=== PATIENT | female | born 1960 | race Caucasian/White ===

== ENCOUNTER 2021-03-07 13:36 | Inpatient (IN) | payer MEDICARE, MEDICAID, SELFPAY ==
[2021-03-07] VITALS (14 sets, daily range): BP systolic 79–115; BP diastolic 36–96; PULSE 88–112; RESP 17–28; TEMP 36.4–36.6; O2SAT 97–100; BMI 27.3
--- NOTE | ~2021-03-07 | US_ITS ---
EXAMINATION: US renal BI EXAM DATE: 03/08/2021 11:11 INDICATION: Acute kidney injury. TECHNIQUE: Multiple grayscale and Doppler images of the kidneys were obtained (by a technologist who performed the scan) and subsequently reviewed. There is no prior study for comparison. FINDINGS: Right kidney: There is normal contour and echogenicity. It measures 10.6 x 3.6 x 5.8 centimeters. T here are no focal renal lesions identified. Minimal hydronephrosis. Left kidney: There is normal contour and echogenicity. It measures 11.0 x 6.7 x 6.3 centimeters. Th ere are no focal renal lesions identified. Mild hydronephrosis. Bladder collapsed. Some artifact from White balloon. IMPRESSION: 1. Mild left, minimal right hydronephrosis. Reviewed, dictated and finalized at location B.
--- NOTE | ~2021-03-07 | XR_ITS ---
EXAMINATION: XR chest 1V portable EXAM DATE: 03/07/2021 14:02 INDICATION: weak, abnormal labs, low blood pressure . TECHNIQUE: Portable AP frontal chest x-ray was obtained. There is no prior study for comparison. FINDINGS: The lungs are clear. There are no pleural effusions. Cardiac silhouette is prominent but magnified on this AP technique. There is no pneumothorax suspected. Dextroscoliosis. IMPRESSION: No acute cardiopulmonary findings. Reviewed, dictated and finalized at location B.
--- NOTE | ~2021-03-07 | CT_ITS ---
EXAMINATION: CT abdomen pelvis wo con EXAM DATE: 03/07/2021 15:43 INDICATION: LLQ abdominal pain. TECHNIQUE: Spiral CT of the abdomen and pelvis was performed without contrast. Axial, coronal and s agittal images of the abdomen and pelvis were reviewed. The dose-length product (DLP) for this exami nation was 540.38 mGy-cm. The exposure was tailored according to patient size (auto mA exposure cont rol), and iterative reconstruction (ASIR) was used as additional dose reduction technique. There is no prior study for comparison. FINDINGS: There is an IVC filter. Mild left adrenal hyperplasia. The liver, spleen, adrenal glands a nd pancreas are unremarkable. Gallbladder is unremarkable. No biliary obstruction. There is a cystic region in the pelvis measuring about 9 x 7 cm, appears to be most likely arising fr om right adnexal region. It appears to be simple cystic, most consistent with a benign ovarian neopla sm. Periadnexal cyst, endometrioma, ovarian malignancy are also in the differential diagnosis. Mild to moderate left-sided hydroureteronephrosis, mild right-sided hydroureteronephrosis. No obstruc ting stones identified. There is White catheter within the bladder. Diffuse bladder wall inflammation , probably acute or acute on chronic cystitis. Cause of the hydronephrosis and clear but possibly inf lammation of the bladder wall, ureterovesicular junctions could be causing some low-grade impairment of flow. There is no retroperitoneal or pelvic lymphadenopathy. There is midline abdominal wall dehiscence with superimposed additional small supraumbilical hernia c ontaining nonobstructed bowel wall, and an infraumbilical moderate-sized hernia containing nonobstruc salma small bowel. The appendix is normal. The stomach and small bowel are unremarkable. There is moderate amount of c olonic stool. No free intraperitoneal gas. The heart is normal in size. There are no pericardial or pleural effusions. The lung bases are unremarkable. There are no osteoblastic or osteolytic les ions identified. IMPRESSION: 1. Pelvic cystic mass most likely right ovarian origin. 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 Cystadenocarcinoma, endometrioma also possible. 2. Diffuse bladder wall inflammation consistent with chronic or acute on chronic cystitis. Correlate with urinalysis. 3. Mild to moderate left, mild right hydroureteronephrosis. 4. Abdominal wall dehiscence, couple of small superimposed hernias containing nonobstructed bowel. Reviewed, dictated and finalized at location B. IMPRESSION: 1. Pelvic cystic mass most likely right ovarian origin. Appearance most consis tent with ovarian cystadenoma. Cystadenocarcinoma, endometrioma also possible. 2. Diffuse bladder wall inflammation consistent with chronic or acute on chron ic cystitis. Correlate with urinalysis. 3. Mild to moderate left, mild right hydroureteronephrosis. 4. Abdominal wall dehiscence, couple of small superimposed hernias containing nonobstructed bowel.
--- NOTE | ~2021-03-07 | US_ITS ---
EXAMINATION: US venous doppler [facility] DATE: 03/08/2021 11:12 INDICATION: Right lower limb pain. TECHNIQUE: Grayscale ultrasound images without and with compression and Doppler ultrasound images of the bilateral lower extremity veins were obtained. COMPARISON: None. FINDINGS: The visualized portions of right common femoral vein, profunda (deep) femoral vein, femoral vein, per payne veins, posterior tibial veins, and greater saphenous vein outflow are patent. The right poplite al vein was not evaluated due to persistent flexion of the knee. The visualized portions of left common femoral vein, profunda femoral vein, femoral vein, popliteal v ein, peroneal veins, posterior tibial veins, and greater saphenous vein outflow are patent. IMPRESSION: 1. No deep venous thrombosis. Reviewed, dictated and finalized at location A.
--- NOTE | 2021-03-07 13:43 | ECG_ITS ---
Measurements Intervals [place] Rate: 110 P: 66 [place]: 143 QRS: 31 QRSD: 100 T: 70 QT: 332 QTc: 451 Interpretive Statements SINUS TACHYCARDIA ATRIAL COUPLET EARLY PRECORDIAL R/S TRANSITION BORDERLINE ST-T WAVE ABNORMALITY- DIFFUSE LEADS BASELINE ARTIFACT- I, II, AVR, AVL ABNORMAL ECG Electronically Signed On 03-07-2021 14:56:26 CDT by Loki Chacon D.O.
[2021-03-07 14:01] LABS: Basophils Absolute Auto 0.1 K/mm3 (0.0-0.1); Basophils Percent Auto 1.1 % (0.2-1.2); Eosinophils Absolute Auto 0.1 K/mm3 (0-0.3); Eosinophils Percent Auto 1.6 % (0-4.4); Hematocrit 26.6 % (37.0-47.0); Hemoglobin 8.7 g/dL (12.0-15.0); Immature Granulocyte Absolute 0.48 K/mm3 (0.00-0.031); Lymphocytes Absolute Auto 0.92 K/mm3 (0.9-3.2); Lymphocytes Percent Auto 11.5 % (18.3-44.2); Mean Corpuscular HGB Conc 32.7 g/dl (32-36); Mean Corpuscular Hemoglobin 29.3 pg (26-34); Mean Corpuscular Volume 89.6 fl (80-100); Mean Platelet Volume 9.3 fl (7.4-10.4); Monocytes Absolute Auto 0.7 K/mm3 (0.1-0.6); Monocytes Percent Auto 8.2 % (2.6-8.5); Neutrophils Absolute Auto 5.7 K/mm3 (1.3-6.7); Neutrophils Percent Auto 71.6 % (45.5-73.1); Platelet Count Result 510 k/mm3 (150-375); Red Blood Count 2.97 M/mm3 (4.2-5.4); Red Cell Distribution Width 17.5 % (11.5-14.5)
[2021-03-07 14:14] LABS: Add Urine Microscopic? YES; Appearance Urine Turbid (Clear); Bacteria Urine 2+ /hpf; Bilirubin Urine Negative (Negative); Blood Urine 2+ (Negative); Budding Yeast Urine Present /hpf; Color Urine Yellow (Yellow); Glucose Urine UA Negative (Negative); Ketones Urine Negative (Negative); Leukocyte Esterase Ur 3+ LEU/UL (Negative); Mucus Urine Rare /lpf; Nitrate Urine Negative (Negative); Protein Urine 2+ mg/dL (Negative); RBC Urine 21-50 /hpf (0-2); Specific Grav Ur 1.013 (1.001-1.035); Urobilinogen Urine Negative mg/dL (<2.0); WBC Clumps Urine Present /HPF; WBC Urine >75 /hpf
[2021-03-07 14:21] LABS: Alanine Aminotransferase 20 U/L (4-35); Albumin Level 3.7 g/dL (3.5-5.1); Alkaline Phosphatase 122 U/L (38-126); Anion Gap 14 mmol/L (8-16); Aspartate Amino Transferase 23 U/L (14-36); Bilirubin,Total 0.4 mg/dL (0.2-1.3); Blood Urea Nitrogen 72 mg/dL (7-17); Calcium 9.5 mg/dL (8.4-10.2); Carbon Dioxide 13 mmol/L (22-30); Chloride 107 mmol/L (98-107); Estimated Glomerular Filt Rate 21; Glucose 109 mg/dL (65-110); Potassium 3.7 mmol/L (3.4-5.0); Sodium 134 mmol/L (137-145)
--- NOTE | 2021-03-07 15:00 | PM.IMHP ---
H&P: HPI History of Present Illness Date/Time: 03/07/21 15:00 Chief Complaint: Abnormal labs. Narrative: This is a pleasant 60-year-old female with history of dementia, hypertension, hyperlipidemia, coronary artery disease, ulcerative colitis, neurogenic bladder with indwelling White catheter, and several other comorbidities who presented to the emergency department earlier today via EMS from [facility] for evaluation of abnormal labs. The patient is a fair historian though some of the following is supplemented via a review of her electronic medical records as well as review of paperwork that accompanied her today. She has not been seen at this facility for many years and it sounds like she typically gets her care at [facility]. She had labs drawn yesterday though I am not sure in what setting, and she was found to have an elevated BUN and creatinine of 91 and 3.4 respectively there is also paperwork showing that she had normal BUN and creatinine on 02/01/2021. In any regard, the patient did not really know why she was sent here today and review of systems was really unrevealing aside from mild weakness and lower abdominal discomfort. Her blood pressure was as low as 79/63 in the emergency department but has improved with IV fluid rehydration. Labs do correlate with acute kidney injury. She was also noted to have pus in her White catheter which appeared to be draining. At the time my evaluation she has no specific complaints and she denies fever, chills, sweats, nausea, vomiting, and diarrhea. She is not currently having any abdominal discomfort or back pain. She does not believe she has been started on any recent medications. Review of Systems Review of Systems: Complete review of systems was conducted and is negative except for what is documented in the HPI. [facility] Past Medical History Medical History (Updated 03/07/21 @ 23:14 by Sindy Soliman PA-C) Anxiety Arthritis Chronic anemia Chronic indwelling White catheter Coronary artery disease Poorly documented and patient denies. Deep venous thrombosis Dementia Gastroesophageal reflux disease Hyperlipidemia Hypertension Neurogenic bladder Ulcerative colitis Surgical History Surgical History History of colon resection Family History Family History (Updated 03/07/21 @ 23:05 by Sindy Soliman PA-C) Other Family history unknown Social History Social History (Updated 03/07/21 @ 23:05 by Sindy Soliman PA-C) Social History: Surrogate decision maker: Amanda Parker, sibling. Code status: Full code. Smoking status: Never smoker Alcohol intake: never Substance use: never Additional living arrangements comments: The patient is a resident at [facility]. Additional occupation/education comments: Disabled. Meds Home Medications and Allergies Home Medications Medication Instructions Recorded Confirmed Type azithromycin 03/07/21 03/07/21 History hydroxyzine pamoate 03/07/21 History lactulose 03/07/21 History losartan 03/07/21 History mirtazapine mg 03/07/21 History montelukast mg 03/07/21 History pantoprazole PO 03/07/21 History potassium chloride meq PO 03/07/21 History sertraline mg 03/07/21 History simvastatin mg 03/07/21 History sucralfate 03/07/21 History Allergies Allergy/AdvReac Type Severity Reaction Status Date / Time lorazepam Allergy Unknown Verified 03/07/21 14:22 Vital Signs Vital Signs - 24 hr 03/07/21 13:32 03/07/21 14:01 03/07/21 14:31 Temperature 97.5 F L Pulse Rate 105 H 108 H 110 H Respiratory Rate 18 24 H 21 H Blood Pressure 88/54 L 101/59 L 100/57 L Pulse Oximetry 100 03/07/21 15:54 03/07/21 16:31 03/07/21 16:33 Temperature Pulse Rate 101 H Respiratory Rate 28 H Blood Pressure 97/74 L 79/63 L 94/60 L Pulse Oximetry 100 100 03/07/21 17:02 03/07/21 19:19 03/07/21 20:07 Temperature
--- NOTE | 2021-03-07 15:19 | ED.RECABL ---
HPI - Recheck/Abnormal Lab/Rx General Chief Complaint: Recheck/Abnormal Lab/Rx Stated Complaint: ABNORMAL LABS Time Seen by Provider: 03/07/21 14:39 Source: patient and EMS Mode of arrival: EMS Limitations: dementia History of Present Illness HPI narrative: This is a 60 year old female with history of Dementia, chronic indwelling kemp catheter, hypertension who presents from [facility] for evaluation elevated BUN/Creatinine. PAtient is oriented to person, age and place. She does not know why she was sent to ER. She reports mild intermittent abdominal pain and weakness. She denies nausea, vomiting. She reports she is eating and drinking. She states her kemp catheter was changed last night and she has not been on antibiotics recently. PAtient had normal Cr 1 month ago and her outpatient labs show Cr 3.4 with BUN 91. Related Data Home Medications Medication Instructions Recorded Confirmed azithromycin 03/07/21 03/07/21 hydroxyzine pamoate 03/07/21 lactulose 03/07/21 losartan 03/07/21 mirtazapine mg 03/07/21 montelukast mg 03/07/21 pantoprazole PO 03/07/21 potassium chloride meq PO 03/07/21 sertraline mg 03/07/21 simvastatin mg 03/07/21 sucralfate 03/07/21 Allergies Allergy/AdvReac Type Severity Reaction Status Date / Time lorazepam Allergy Unknown Verified 03/07/21 14:22 Review of Systems Review of Systems: All systems reviewed & are unremarkable except as noted in HPI and below PMFSH Past Medical History Medical History (Updated 03/07/21 @ 17:09 by Serena Lang MD) Anemia Chronic indwelling Kemp catheter Dementia Hyperlipidemia Surgical History Surgical History (Updated 03/07/21 @ 17:09 by Serena Lang MD) History of colon resection Social History Social History (Updated 03/07/21 @ 17:09 by Serena Lang MD) Smoking status: Never smoker Exam Const: General: no acute distress and alert Orientation/consciousness: patient oriented x3 Eyes: EOM: EOMs intact bilaterally Resp: Effort & Inspection: normal respiratory effort and no retractions Auscultation: clear to auscultation bilaterally Cardio: Rate: regular rate Rhythm: regular rhythm Heart sounds: no murmurs GI: GI Palp: Yes Soft to palpation, Yes Tenderness to palpation present (GI) (LLQ) and No Guarding due to palpation present (GI) Auscultation: normal bowel sounds Urinary Catheter: Urinary Catheter: patent and draining and urine cloudy Back/Spine/Pelvis: Back: no CVA tenderness Skin: General skin exam: normal color Rashes: no rashes Neuro: General: patient oriented x3 and CN's II-XI intact bilaterally Other: lower extremity contractures Psych: Mental Status: mental status grossly normal Affect: normal affect Course Reevaluation(s) Reevaluation #1: Patient will be admitted for IV antibiotics and UTI with acute renal failure. BP is responding to IVF. Date: 03/07/21 Time: 17:05 Consultations Consultation #1: I Discussed case with Sindy murray who accepts patient to service. Date: 03/07/21 Time: 16:30 Vital Signs Vital signs: Vital Signs Temperature 97.5 F L 03/07/21 13:32 Pulse Rate 105 H 03/07/21 13:32 Respiratory Rate 18 03/07/21 13:32 Blood Pressure 88/54 L 03/07/21 13:32 Pulse Oximetry 100 03/07/21 13:32 Temperature 97.5 F L 03/07/21 13:32 Pulse Rate 101 H 03/07/21 15:54 Respiratory Rate 28 H 03/07/21 15:54 Blood Pressure 97/74 L 03/07/21 15:54 Pulse Oximetry 100 03/07/21 15:54 MDM - Recheck/Abnormal Lab/Rx Lab Data Attestation: I reviewed the patient's lab results. Result diagrams: 03/07/21 13:47 03/07/21 13:47 Labs: Lab Results 03/07/21 03/07/21 03/07/21 Range/Units 13:47 13:47 13:47 WBC 8.0 (4.5-10.0) K/mm3 RBC 2.97 L (4.2-5.4) M/mm3 Hgb 8.7 L (12.0-15.0) g/dL Hct 26.6 L (37.0-47.0) % MCV 89.6 (80-100) fl MCH 29.3 (26-34) pg MCHC 32.7 (32-36) g/dl R
[2021-03-07 15:36] LABS: Alveolar/Arterial O2 Gradient 24.3 mmHg; Base Excess ABG -9.5 mEq/l (+/-2.0); Carboxyhemoglobin 0.2 % THb (0-2.0); Fractional Inspired Oxygen 21 %; HCO3 ABG 13.9 mEq/l (22.0-26.0); Methemoglobin ABG 0.3 %THb (0-1.5); Oxygen Content ABG 13.3 %vol (16.0-22.0); Oxygen Saturation ABG 97.6 % (95.0-100.0); Oxyhemoglobin 96.6 % THb (90.0-100.0); PO2 ABG 97.8 mmHg (80.0-100.0); PO2 FiO2 Ratio Arterial Blood 4.66 %; Reduced Hemoglobin 2.9 %THb (0-5.0); Total Hemoglobin 9.7 g/dL (12.0-18.0); pH ABG 7.396 (7.350-7.450)
[2021-03-07 15:39] LABS: PCO2 ABG 23.1 mmHg (35.0-45.0); Site Drawn LEFT BRACHIAL
[2021-03-07 15:40] LABS: Device ROOM AIR
[2021-03-07 16:06] LABS: Lactic Acid Reflex 0.8 mmol/L (0.7-2.1)
[2021-03-07] MEDS: SODIUM CHLORIDE 0.9% IV 1,000 ML 999 ML IV CONT ×2 (16:32→16:33)
[2021-03-07 21:09] LABS: Glucose Point of Care 99 mg/dl (65-105)
--- NOTE | 2021-03-07 23:23 | ADMGEN ---
This patient, Patsy Hugo, was admitted to IMU Room 203-01. Patient/family oriented to hospital policies and general routines including ID bracelet, bed and alarms, visiting hours, pain management, procedures, bathroom and other care routines, personal items, smoking policy, room service/diet, and visiting hours. Information on how to activate the Rapid Response Team has been discussed. Patient/Family are encouraged to report perceived risks to care and to ask questions if they do not understand what they are told or what they should do.
[2021-03-07] MEDS: SODIUM CHLORIDE 0.9% IV 1,000 ML 100 ML IV CONT (23:28)
[2021-03-08] VITALS (19 sets, daily range): BP systolic 103–125; BP diastolic 44–70; PULSE 82–114; RESP 14–20; TEMP 36.3–36.9; O2SAT 100; BMI 27.3
[2021-03-08 05:33] LABS: Basophils Absolute Auto 0.1 K/mm3 (0.0-0.1); Basophils Percent Auto 1.4 % (0.2-1.2); Eosinophils Absolute Auto 0.2 K/mm3 (0-0.3); Eosinophils Percent Auto 2.4 % (0-4.4); Hematocrit 24.1 % (37.0-47.0); Hemoglobin 7.5 g/dL (12.0-15.0); Immature Granulocyte Absolute 0.42 K/mm3 (0.00-0.031); Immature Granulocyte Percent A 6.4 % (0-0.5); Lymphocytes Absolute Auto 0.75 K/mm3 (0.9-3.2); Lymphocytes Percent Auto 11.4 % (18.3-44.2); Mean Corpuscular HGB Conc 31.1 g/dl (32-36); Mean Corpuscular Hemoglobin 29.2 pg (26-34); Mean Corpuscular Volume 93.8 fl (80-100); Mean Platelet Volume 9.1 fl (7.4-10.4); Monocytes Absolute Auto 0.7 K/mm3 (0.1-0.6); Monocytes Percent Auto 9.9 % (2.6-8.5); Neutrophils Absolute Auto 4.5 K/mm3 (1.3-6.7); Neutrophils Percent Auto 68.5 % (45.5-73.1); Platelet Count Result 438 k/mm3 (150-375); Red Blood Count 2.57 M/mm3 (4.2-5.4); Red Cell Distribution Width 17.9 % (11.5-14.5); White Blood Count 6.6 K/mm3 (4.5-10.0)
[2021-03-08 05:44] LABS: Creatine Kinase 45 U/L (30-135); Magnesium 1.8 mg/dL (1.6-2.3)
[2021-03-08 05:51] LABS: Alanine Aminotransferase 15 U/L (4-35); Albumin Level 3.2 g/dL (3.5-5.1); Alkaline Phosphatase 101 U/L (38-126); Anion Gap 13 mmol/L (8-16); Aspartate Amino Transferase 20 U/L (14-36); Bilirubin,Total 0.1 mg/dL (0.2-1.3); Blood Urea Nitrogen 53 mg/dL (7-17); Calcium 8.8 mg/dL (8.4-10.2); Carbon Dioxide 13 mmol/L (22-30); Chloride 114 mmol/L (98-107); Estimated CRCL calculation 27 ml/min; Estimated Glomerular Filt Rate 30; Glucose 103 mg/dL (65-110); Potassium 3.1 mmol/L (3.4-5.0); Sodium 140 mmol/L (137-145)
[2021-03-08 07:11] LABS: Free T4 Free Thyroxine Reflex 0.86 ng/dL (0.78-2.19)
[2021-03-08] MEDS: ENOXAPARIN 40 MG/0.4 ML SYRINGE SUB-Q (08:39)
[2021-03-08] MEDS: PANTOPRAZOLE 40 MG TABLET PO (08:39)
[2021-03-08] MEDS: MONTELUKAST SODIUM 10 MG TABLET PO (08:39)
[2021-03-08 09:01] LABS: Total Triiodothyronine (T3) 0.67 NG/ML (0.97-1.69)
[2021-03-08] MEDS: SODIUM BICARBONATE TAB 650 MG TABLET 1300 MG PO ×2 (09:53→16:53)
[2021-03-08] MEDS: POTASSIUM CHLORIDE 20 MEQ TABLET 40 MEQ PO (09:54)
[2021-03-08] MEDS: SODIUM CHLORIDE 0.9% IV 1,000 ML 100 ML IV CONT ×3 (10:02→20:33)
--- NOTE | 2021-03-08 15:26 | PC.NURSE ---
On 03/08/21, the student, [Esme Olivera ], provided care and completed [employer] documentation on this patient. I have reviewed the student's documentation and agree with the findings.
--- NOTE | 2021-03-08 15:54 | WPDURCON ---
Assessment and Plan Assessment and plan (1) Sepsis: Code(s): A41.9 - Sepsis, unspecified organism Status: Acute Assessment and Plan: Continue IV antibiotics, tailor to culture results. No further evaluation needed. Ok to discharge to [facility] when stable. (2) Chronic indwelling Kemp catheter: Code(s): Z97.8 - Presence of other specified devices Status: Acute Assessment and Plan: Continue monthly changes. I would recommend she see us in the office for a urodynamic study to further evaluate her retention, if she has a confirmed neurogenic bladder at that point, we would recommend a suprapubic catheter custodial rather than a urethral catheter. Urology Consult Note HPI Date Seen: 03/08/21 Requesting Physician: Stella Astudillo PA-C Primary Care Provider: PHYSICIAN NOT ON STAFF Consult Narrative Narrative: Patsy Hugo is a 60 year old female who presented to the ER yesterday with abdominal pain and weakness. She resides in a halfway and has a chronic indwelling kemp catheter. She was found to have a WBC of 6.6 today, creatinine of 1.20, UA suggests a UTI, but urine culture and blood cultures are pending at this time. She is afebrile and sitting up in bed eating. She had a BLANCA done today that shows mild bilateral hydro, although her kemp is draining to gravity without problem. She had a CT yesterday that showed cystitis and mild bilateral hydro. Her kemp was replaced two days ago at the [facility]. She saw Dr. Robins on 07/20/2020 for a voiding trial and he gave orders for the [facility] to do it and call with an update, but there has been no f/u since. She remains on Ceftriaxone. Review of Systems Respiratory: Respiratory: Reports no additional respiratory complaints Gastrointestinal: Gastrointestinal: Reports abdominal pain, Denies nausea and Denies vomiting Genitourinary: Genitourinary: Reports other (chronic kemp) [facility] Past Medical History Medical History Anxiety Arthritis Chronic anemia Chronic indwelling Kemp catheter Coronary artery disease Poorly documented and patient denies. Deep venous thrombosis Dementia Gastroesophageal reflux disease Hyperlipidemia Hypertension Neurogenic bladder Ulcerative colitis Surgical History Surgical History History of colon resection Family History Family History Other Family history unknown Social History Social History Social History: Surrogate decision maker: Amanda Parker, sibling. Code status: Full code. Smoking status: Never smoker Alcohol intake: never Substance use: never Additional living arrangements comments: The patient is a resident at [facility]. Additional occupation/education comments: Disabled. Spiritual care concerns: No Meds Home Medications and Allergies Home Medications Medication Instructions Recorded Confirmed Type hydroxyzine pamoate 25 mg PO BID 03/07/21 03/08/21 History lactulose 10 g PO TID PRN 03/07/21 03/08/21 History losartan 25 mg PO DAILY 03/07/21 03/08/21 History mirtazapine 15 mg PO HS 03/07/21 03/08/21 History montelukast 10 mg PO DAILY 03/07/21 03/08/21 History pantoprazole 40 mg PO DAILY 03/07/21 03/08/21 History sertraline 50 mg PO DAILY 03/07/21 03/08/21 History simvastatin 20 mg PO HS 03/07/21 03/08/21 History sucralfate 1 g PO BID 03/07/21 03/08/21 History Lactobacillus acidophilus 1 cap PO DAILY 03/08/21 03/08/21 History [Acidophilus] acetaminophen [Tylenol Extra 1,000 mg PO Q6H PRN 03/08/21 03/08/21 History Strength] ascorbate calcium (vitamin C) 500 mg PO BID 03/08/21 03/08/21 History cholecalciferol (vitamin D3) 4,000 unit PO DAILY 03/08/21 03/08/21 History docusate sodium 100 mg PO BID 03/08/21 03/08/21 History ergoc
--- NOTE | 2021-03-08 16:57 | PM.IMPN ---
Progress Note: A&P Assessment and Plan (1) Sepsis: Code(s): A41.9 - Sepsis, unspecified organism Status: Acute Assessment and Plan: Patient met sepsis criteria on admission with tachycardia and hypotension in the setting of urinary tract infection. Lactic acid levels within normal limits. Blood pressures improved with IV fluids. Continue with IV antibiotics. Urine and blood cultures pending. Continue IV fluid hydration. Monitor intake and output, vital signs (2) Catheter-associated urinary tract infection: Code(s): T83.511A - Infection and inflammatory reaction due to indwelling urethral catheter, initial encounter; N39.0 - Urinary tract infection, site not specified Status: Acute Assessment and Plan: Noted to have pus in White catheter and urinalysis grossly abnormal. Afebrile, no leukocytosis. Appreciate urology consultation Continue empiric Rocephin Urine and blood cultures pending await results and tailor accordingly Chronic White secondary to neurogenic bladder. She will need outpatient urology follow-up. (3) Acute renal failure: Code(s): N17.9 - Acute kidney failure, unspecified Status: Acute Assessment and Plan: Jam pus noted in the White catheter and with [id number] left and mild right hydroureteronephrosis noted on CT, some of this may be obstructive. Also likely prerenal component secondary to dehydration. ATN from sepsis also considered. Creatinine 2.3 on presentation. Improved to 1.7 with IV fluids Renal ultrasound performed today showed mild left and minimal right hydronephrosis Continue fluids Monitor BMP closely. Avoid nephrotoxic agents (4) Dehydration: Code(s): E86.0 - Dehydration Status: Acute Assessment and Plan: Continue IV fluid rehydration as above. (5) Hypertension: Code(s): I10 - Essential (primary) hypertension Status: Acute Assessment and Plan: History of hypertension, though she had been hypotensive on presentation down to 79/63. BP improving today with fluids. Last BP 114/70 Continue to hold antihypertensives. Resume when clinically appropriate (6) Pelvic mass: Code(s): R19.00 - Intra-abdominal and pelvic swelling, mass and lump, unspecified site Status: Acute Assessment and Plan: Pelvic cystic mass most likely of right ovarian origin noted on CT a/p. Denies pelvic pain. There is no mention on CT reading that this may be causing hydroureteronephrosis thus may be followed as an outpatient. (7) Metabolic acidosis: Code(s): E87.2 - Acidosis Status: Acute Assessment and Plan: Normal anion gap. Bicarb 13 Begin p.o. sodium bicarbonate 1300 mg b.i.d. Monitor BMP (8) Hypokalemia: Code(s): E87.6 - Hypokalemia Status: Acute Assessment and Plan: Potassium 3.1 today Administer 40 mEq p.o. KCl Repeat potassium levels tomorrow AM. Supplement as needed Additional Plan Patient is hemodynamically stable and can be downgraded to medical/surgical floor Subjective Date/time seen: 03/08/21 16:57 Interval history: Date of service: 03/08/2021 Patsy james is a 60-year-old female with a history of neurogenic bladder with chronic indwelling White catheter, hypertension, CAD, ulcerative colitis s/p resection, and chronic anemia who is seen in follow-up for urinary tract infection. She is feeling better today. She denies any pain and does not feel ill. She has no issues with her White catheter. Denies suprapubic pain, flank pain, or back pain. No abdominal pain, nausea, vomiting, fever, or chills. Tolerating her diet. No shortness breath, cough, chest pain, dizziness, or lightheadedness. She has no additional concerns. Review of Systems Review of Systems: All systems reviewed & are unremarkable except as noted in HPI and below Exam Narrative: The patient is a thin, chronicall
[2021-03-08 17:03] LABS: Glucose Point of Care 117 mg/dl (65-105)
[2021-03-08] MEDS: SUCRALFATE 1 GM TABLET PO (18:30)
[2021-03-08 20:12] LABS: Hematocrit 22.9 % (37.0-47.0); Hemoglobin 7.5 g/dL (12.0-15.0)
[2021-03-08 20:15] LABS: Glucose Point of Care 120 mg/dl (65-105)
[2021-03-08] MEDS: MIRTAZAPINE 15 MG TABLET PO (20:33)
[2021-03-08] MEDS: SIMVASTATIN 20 MG TABLET PO (20:33)
[2021-03-09] VITALS (10 sets, daily range): BP systolic 106–121; BP diastolic 45–70; PULSE 70–107; RESP 18–20; TEMP 36.2–37.2; O2SAT 98–100
[2021-03-09 05:04] LABS: Hematocrit 24.1 % (37.0-47.0); Hemoglobin 7.7 g/dL (12.0-15.0); Mean Corpuscular Hemoglobin 29.2 pg (26-34); Mean Corpuscular Volume 91.3 fl (80-100); Mean Platelet Volume 8.8 fl (7.4-10.4); Platelet Count Result 399 k/mm3 (150-375); Red Blood Count 2.64 M/mm3 (4.2-5.4); Red Cell Distribution Width 17.9 % (11.5-14.5); White Blood Count 7.4 K/mm3 (4.5-10.0)
[2021-03-09 05:32] LABS: Anion Gap 10 mmol/L (8-16); Blood Urea Nitrogen 28 mg/dL (7-17); Calcium 8.4 mg/dL (8.4-10.2); Carbon Dioxide 17 mmol/L (22-30); Chloride 111 mmol/L (98-107); Estimated CRCL calculation 41 ml/min; Estimated Glomerular Filt Rate 50; Glucose 100 mg/dL (65-110); Potassium 3.2 mmol/L (3.4-5.0); Sodium 138 mmol/L (137-145)
[2021-03-09] MEDS: SUCRALFATE 1 GM TABLET PO ×2 (05:36→16:30)
[2021-03-09 06:21] LABS: Folic Acid 4.7 ng/mL (2.76->20)
[2021-03-09 07:16] LABS: Iron 22 ug/dL (37-170)
[2021-03-09 07:29] LABS: Percent Iron Saturation 12 % (20-50)
[2021-03-09] MEDS: SODIUM BICARBONATE TAB 650 MG TABLET 1300 MG PO ×2 (08:42→16:30)
[2021-03-09] MEDS: ENOXAPARIN 40 MG/0.4 ML SYRINGE SUB-Q (08:42)
[2021-03-09] MEDS: PANTOPRAZOLE 40 MG TABLET PO (08:42)
[2021-03-09] MEDS: POTASSIUM CHLORIDE 20 MEQ TABLET 40 MEQ PO (08:42)
[2021-03-09] MEDS: MONTELUKAST SODIUM 10 MG TABLET PO (08:42)
[2021-03-09] MEDS: SERTRALINE HCL 50 MG TABLET PO (08:42)
[2021-03-09] MEDS: SODIUM CHLORIDE 0.9% IV 1,000 ML 100 ML IV CONT (08:43)
[2021-03-09 09:06] LABS: Glucose Point of Care 87 mg/dl (65-105)
--- NOTE | 2021-03-09 11:40 | PM.IMPN ---
Progress Note: A&P Assessment and Plan (1) Sepsis: Code(s): A41.9 - Sepsis, unspecified organism Status: Acute Assessment and Plan: Tachycardia and hypotension in the setting of urinary tract infection POA Lactic acid levels within normal limits Blood pressures improved with IVF Continue with IV antibiotics UC probable contamination BC NGTD s/P IVF (2) Catheter-associated urinary tract infection: Code(s): T83.511A - Infection and inflammatory reaction due to indwelling urethral catheter, initial encounter; N39.0 - Urinary tract infection, site not specified Status: Acute Assessment and Plan: Noted to have pus in White catheter and urinalysis grossly abnormal Afebrile, no leukocytosis Urology consulted, recommendations appreciated Continue empiric Rocephin UC and BC noted above Chronic White secondary to neurogenic bladder, continue monthly changes She will need outpatient urology follow-up, 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 1.7-->1.10 todya S/p IVF Renal ultrasound showed mild left and minimal right hydronephrosis S/p IVF Avoid nephrotoxins Renally dose all meds Monitor BMP closely (4) Dehydration: Code(s): E86.0 - Dehydration Status: Acute Assessment and Plan: Improving s/p IVF (5) Hypertension: Code(s): I10 - Essential (primary) hypertension Status: Acute Assessment and Plan: Hypotensive on admission (79/63) BP improved with fluids Continue to hold antihypertensives, resume when clinically appropriate (6) Pelvic mass: Code(s): R19.00 - Intra-abdominal and pelvic swelling, mass and lump, unspecified site Status: Acute Assessment and Plan: Pelvic cystic mass most likely of right ovarian origin noted on CT a/p. No mention on CT reading that this may be causing hydroureteronephrosis, follow up outpatient (7) Metabolic acidosis: Code(s): E87.2 - Acidosis Status: Acute Assessment and Plan: Normal anion gap. Bicarb 13 Begin p.o. sodium bicarbonate 1300 mg b.i.d. Monitor BMP (8) Hypokalemia: Code(s): E87.6 - Hypokalemia Status: Acute Assessment and Plan: Potassium 3.1-->3.2 today Will give 40 mEq p.o. KCl Monitor Supplement as needed Additional Plan Patient is hemodynamically stable and can be downgraded to medical/surgical floor Subjective Date/time seen: 03/09/21 11:40 Interval history: pt seen and evaluated; overall pt is improving; no acute events overnight; no new complaints Exam Const: General: no acute distress, alert and awake HENMT: Head: normocephalic and atraumatic Ears: hearing grossly normal bilaterally and external ears normal Face and sinus: face symmetric Mouth: Yes Normal oral and palatal mucosa present Eyes: EOM: EOMs intact bilaterally Neck: Neck: full ROM, trachea midline and no JVD Resp: Effort & Inspection: normal respiratory effort Auscultation: clear to auscultation bilaterally Cardio: Jugular venous distension: no JVD Rate: regular rate Rhythm: regular rhythm Heart sounds: S1 normal heart sound present and S2 normal heart sound present GI: Inspection: normal to inspection GI Palp: Yes Soft to palpation Auscultation: normal bowel sounds : General: Yes no CVA tenderness Skin: General skin exam: normal color Rashes: no rashes Neuro: General: patient oriented x3 Cranial nerves: Yes Bilaterally intact EOM present Speech: normal speech Extrem: General: other (right sided paralysis; RLE contracted) Psych: Insight: Fair insight present (Psych)
[2021-03-09] MEDS: ACETAMINOPHEN 325 MG TABLET 650 MG PO (14:51)
--- NOTE | 2021-03-09 15:10 | PC.NURSE ---
Pt received from IMU room 203. Patient oriented to the room.
[2021-03-09] MEDS: HYDROcodone/acetaminophen (*CRX) 5-325 MG TABLET 1 TAB PO (17:16)
[2021-03-09] MEDS: MIRTAZAPINE 15 MG TABLET PO (20:53)
[2021-03-09] MEDS: SIMVASTATIN 20 MG TABLET PO (20:53)
[2021-03-10] VITALS: BP 102/46; PULSE 107; PULSE 86; RESP 20; TEMP 36.1; O2SAT 99
[2021-03-10] MEDS: ACETAMINOPHEN 500 MG TABLET 1000 MG PO ×2 (00:42→21:05)
[2021-03-10 04:00] VITALS: BP 100/42; PULSE 87; PULSE 91; RESP 20; TEMP 36.2; O2SAT 99
[2021-03-10] MEDS: SUCRALFATE 1 GM TABLET PO ×2 (05:42→16:32)
[2021-03-10 05:48] LABS: Hematocrit 24.6 % (37.0-47.0); Hemoglobin 7.9 g/dL (12.0-15.0); Mean Corpuscular HGB Conc 32.1 g/dl (32-36); Mean Corpuscular Hemoglobin 28.6 pg (26-34); Mean Corpuscular Volume 89.1 fl (80-100); Mean Platelet Volume 8.8 fl (7.4-10.4); Platelet Count Result 403 k/mm3 (150-375); Red Blood Count 2.76 M/mm3 (4.2-5.4); Red Cell Distribution Width 17.7 % (11.5-14.5); White Blood Count 5.6 K/mm3 (4.5-10.0)
[2021-03-10 06:25] LABS: Anion Gap 11 mmol/L (8-16); Blood Urea Nitrogen 18 mg/dL (7-17); Calcium 8.5 mg/dL (8.4-10.2); Carbon Dioxide 18 mmol/L (22-30); Chloride 111 mmol/L (98-107); Estimated CRCL calculation 45 ml/min; Estimated Glomerular Filt Rate 56; Glucose 100 mg/dL (65-110); Potassium 3.3 mmol/L (3.4-5.0); Sodium 140 mmol/L (137-145)
[2021-03-10 08:00] VITALS: BP 131/65; PULSE 96; PULSE 99; RESP 18; TEMP 36.3; O2SAT 100
[2021-03-10] MEDS: MONTELUKAST SODIUM 10 MG TABLET PO (08:24)
[2021-03-10] MEDS: PANTOPRAZOLE 40 MG TABLET PO (08:24)
[2021-03-10] MEDS: SODIUM BICARBONATE TAB 650 MG TABLET 1300 MG PO ×2 (08:24→16:31)
[2021-03-10] MEDS: SERTRALINE HCL 50 MG TABLET PO (08:24)
[2021-03-10] MEDS: ENOXAPARIN 40 MG/0.4 ML SYRINGE SUB-Q (08:25)
[2021-03-10] MEDS: IRON SUCROSE COMPLEX 100 MG in SODIUM CHLORIDE 0.9% IV 50 ML 220 MG IVPB (10:14)
[2021-03-10 12:00] VITALS: BP 127/62; PULSE 107; PULSE 95; RESP 16; TEMP 36.6; O2SAT 99
--- NOTE | 2021-03-10 15:22 | PM.IMPN ---
Progress Note: A&P Assessment and Plan (1) Sepsis: Code(s): A41.9 - Sepsis, unspecified organism Status: Acute Assessment and Plan: Tachycardia and hypotension in the setting of urinary tract infection POA Lactic acid levels within normal limits Blood pressures improved with IVF Continue with IV antibiotics UC probable contamination BC NGTD s/P IVF (2) Catheter-associated urinary tract infection: Code(s): T83.511A - Infection and inflammatory reaction due to indwelling urethral catheter, initial encounter; N39.0 - Urinary tract infection, site not specified Status: Acute Assessment and Plan: Noted to have pus in White catheter and urinalysis grossly abnormal Afebrile, no leukocytosis Urology consulted, recommendations appreciated Continue empiric Rocephin UC and BC noted above Chronic White secondary to neurogenic bladder, continue monthly changes She will need outpatient urology follow-up, 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 1.7-->1.10-->1 today S/p IVF Renal ultrasound showed mild left and minimal right hydronephrosis S/p IVF Avoid nephrotoxins Renally dose all meds Monitor BMP closely (4) Dehydration: Code(s): E86.0 - Dehydration Status: Acute Assessment and Plan: Improving s/p IVF (5) Hypertension: Code(s): I10 - Essential (primary) hypertension Status: Acute Assessment and Plan: Hypotensive on admission (79/63) BP improved with fluids Continue to hold antihypertensives, resume when clinically appropriate (6) Pelvic mass: Code(s): R19.00 - Intra-abdominal and pelvic swelling, mass and lump, unspecified site Status: Acute Assessment and Plan: Pelvic cystic mass most likely of right ovarian origin noted on CT a/p No mention on CT reading that this may be causing hydroureteronephrosis, follow up outpatient (7) Metabolic acidosis: Code(s): E87.2 - Acidosis Status: Acute Assessment and Plan: Normal anion gap. Bicarb 13 Begin p.o. sodium bicarbonate 1300 mg b.i.d. Monitor BMP (8) Hypokalemia: Code(s): E87.6 - Hypokalemia Status: Acute Assessment and Plan: Potassium 3.1-->3.2-->3.3 today Will give 40 mEq p.o. KCl Monitor Supplement as needed (9) Anemia: Code(s): D64.9 - Anemia, unspecified Status: Acute Assessment and Plan: Hgb 7.9 Iron studies reviewed, Iron deficiency Will supplement Transfuse if <7 Monitor Additional Plan Return to [place] at d/c when medically stable Subjective Date/time seen: 03/10/21 15:22 Interval history: pt seen and evaluated; overall pt is improving; no acute events overnight; no new complaints Review of Systems Review of Systems: All systems reviewed & are unremarkable except as noted in HPI and below Exam Const: General: no acute distress, alert and awake Orientation/consciousness: patient oriented x3 HENMT: Head: normocephalic and atraumatic Ears: hearing grossly normal bilaterally and external ears normal Face and sinus: face symmetric Mouth: Yes Normal oral and palatal mucosa present Eyes: EOM: EOMs intact bilaterally Neck: Neck: full ROM, trachea midline and no JVD Resp: Effort & Inspection: normal respiratory effort Auscultation: clear to auscultation bilaterally Cardio: Jugular venous distension: no JVD Rate: regular rate Rhythm: regular rhythm Heart sounds: S1 normal heart sound present and S2 normal heart sound present GI: Inspection: normal to inspection Auscultation: normal bowel sounds : General: Yes no CV
[2021-03-10 16:00] VITALS: BP 138/59; PULSE 87; PULSE 98; RESP 16; TEMP 36.5; O2SAT 100
[2021-03-10 20:00] VITALS: BP 117/45; PULSE 101; PULSE 97; RESP 21; TEMP 36.3; O2SAT 100
[2021-03-10] MEDS: MIRTAZAPINE 15 MG TABLET PO (21:06)
[2021-03-10] MEDS: SIMVASTATIN 20 MG TABLET PO (21:06)
[2021-03-11] VITALS (11 sets, daily range): BP systolic 101–131; BP diastolic 44–78; PULSE 91–118; RESP 18–20; TEMP 36.1–37.2; O2SAT 98–100
[2021-03-11 05:39] LABS: Anion Gap 9 mmol/L (8-16); Blood Urea Nitrogen 17 mg/dL (7-17); Calcium 8.6 mg/dL (8.4-10.2); Carbon Dioxide 18 mmol/L (22-30); Chloride 111 mmol/L (98-107); Estimated CRCL calculation 45 ml/min; Estimated Glomerular Filt Rate 56; Glucose 95 mg/dL (65-110); Potassium 3.4 mmol/L (3.4-5.0); Sodium 138 mmol/L (137-145)
[2021-03-11 05:44] LABS: Hemoglobin 8.2 g/dL (12.0-15.0); Mean Corpuscular HGB Conc 29.3 g/dl (32-36); Mean Corpuscular Hemoglobin 29.6 pg (26-34); Mean Corpuscular Volume 101.1 fl (80-100); Mean Platelet Volume 8.9 fl (7.4-10.4); Platelet Count Result 316 k/mm3 (150-375); Red Blood Count 2.77 M/mm3 (4.2-5.4); Red Cell Distribution Width 18.4 % (11.5-14.5); White Blood Count 4.8 K/mm3 (4.5-10.0)
[2021-03-11] MEDS: SUCRALFATE 1 GM TABLET PO ×2 (05:53→16:04)
[2021-03-11] MEDS: MONTELUKAST SODIUM 10 MG TABLET PO (08:26)
[2021-03-11] MEDS: SERTRALINE HCL 50 MG TABLET PO (08:27)
[2021-03-11] MEDS: SODIUM BICARBONATE TAB 650 MG TABLET 1300 MG PO ×2 (08:27→16:15)
[2021-03-11] MEDS: PANTOPRAZOLE 40 MG TABLET PO (08:27)
[2021-03-11] MEDS: ENOXAPARIN 40 MG/0.4 ML SYRINGE SUB-Q (08:27)
[2021-03-11] MEDS: IRON SUCROSE COMPLEX 100 MG in SODIUM CHLORIDE 0.9% IV 50 ML 220 MG IVPB (08:30)
--- NOTE | 2021-03-11 13:36 | PM.IMPN ---
Progress Note: A&P Assessment and Plan (1) Sepsis: Code(s): A41.9 - Sepsis, unspecified organism Status: Acute Assessment and Plan: Tachycardia and hypotension in the setting of urinary tract infection POA Lactic acid levels within normal limits Blood pressures improved with IVF Continue with IV antibiotics UC probable contamination BC NGTD s/P IVF (2) Catheter-associated urinary tract infection: Code(s): T83.511A - Infection and inflammatory reaction due to indwelling urethral catheter, initial encounter; N39.0 - Urinary tract infection, site not specified Status: Acute Assessment and Plan: Noted to have pus in White catheter and urinalysis grossly abnormal Afebrile, no leukocytosis Urology consulted, recommendations appreciated Continue empiric Rocephin UC and BC noted above Chronic White secondary to neurogenic bladder, continue monthly changes She will need outpatient urology follow-up, 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 1.7-->1.10-->1 today S/p IVF Renal ultrasound showed mild left and minimal right hydronephrosis S/p IVF Avoid nephrotoxins Renally dose all meds Monitor BMP closely (4) Dehydration: Code(s): E86.0 - Dehydration Status: Acute Assessment and Plan: Improving s/p IVF (5) Hypertension: Code(s): I10 - Essential (primary) hypertension Status: Acute Assessment and Plan: Hypotensive on admission (79/63) BP improved with fluids Continue to hold antihypertensives, resume when clinically appropriate (6) Pelvic mass: Code(s): R19.00 - Intra-abdominal and pelvic swelling, mass and lump, unspecified site Status: Acute Assessment and Plan: Pelvic cystic mass most likely of right ovarian origin noted on CT a/p No mention on CT reading that this may be causing hydroureteronephrosis, follow up outpatient (7) Metabolic acidosis: Code(s): E87.2 - Acidosis Status: Acute Assessment and Plan: Normal anion gap. Bicarb 13 Begin p.o. sodium bicarbonate 1300 mg b.i.d. Monitor BMP (8) Hypokalemia: Code(s): E87.6 - Hypokalemia Status: Acute Assessment and Plan: Potassium 3.1-->3.2-->3.3-->3.4 today Will give 40 mEq p.o. KCl Monitor Supplement as needed (9) Anemia: Code(s): D64.9 - Anemia, unspecified Status: Acute Assessment and Plan: Hgb 7.9 Iron studies reviewed, Iron deficiency Will supplement Transfuse if <7 Monitor Additional Plan Return to [place] at d/c when medically stable Subjective Date/time seen: 03/11/21 13:36 Interval history: pt seen and evaluated; pt sleepy today; no acute events overnight; no new complaints Review of Systems Review of Systems: All systems reviewed & are unremarkable except as noted in HPI and below Exam Const: General: no acute distress, alert and awake Orientation/consciousness: patient oriented x3 HENMT: Head: normocephalic and atraumatic Ears: hearing grossly normal bilaterally and external ears normal Face and sinus: face symmetric Mouth: Yes Normal oral and palatal mucosa present Eyes: EOM: EOMs intact bilaterally Neck: Neck: full ROM, trachea midline and no JVD Resp: Effort & Inspection: normal respiratory effort Auscultation: clear to auscultation bilaterally Cardio: Jugular venous distension: no JVD Rate: regular rate Rhythm: regular rhythm Heart sounds: S1 normal heart sound present and S2 normal heart sound present GI: Inspection: normal to inspection Auscultation: normal bowel sounds : General: Ye
[2021-03-11] MEDS: POTASSIUM CHLORIDE 20 MEQ TABLET PO (14:32)
[2021-03-11] MEDS: SIMVASTATIN 20 MG TABLET PO (21:33)
[2021-03-11] MEDS: ACETAMINOPHEN 500 MG TABLET 1000 MG PO (21:33)
[2021-03-11] MEDS: MIRTAZAPINE 15 MG TABLET PO (21:33)
[2021-03-12] VITALS: PULSE 108
[2021-03-12 04:00] VITALS: BP 113/66; PULSE 116; PULSE 118; RESP 17; TEMP 36.2; O2SAT 99
[2021-03-12 05:34] LABS: Anion Gap 10 mmol/L (8-16); Blood Urea Nitrogen 18 mg/dL (7-17); Calcium 8.7 mg/dL (8.4-10.2); Carbon Dioxide 23 mmol/L (22-30); Chloride 105 mmol/L (98-107); Estimated CRCL calculation 41 ml/min; Estimated Glomerular Filt Rate 50; Glucose 107 mg/dL (65-110); Potassium 3.4 mmol/L (3.4-5.0); Sodium 138 mmol/L (137-145)
[2021-03-12] MEDS: SUCRALFATE 1 GM TABLET PO (06:05)
[2021-03-12 08:00] VITALS: PULSE 115
[2021-03-12] MEDS: IRON SUCROSE COMPLEX 100 MG in SODIUM CHLORIDE 0.9% IV 50 ML 220 MG IVPB (08:25)
[2021-03-12] MEDS: SERTRALINE HCL 50 MG TABLET PO (08:26)
[2021-03-12] MEDS: PANTOPRAZOLE 40 MG TABLET PO (08:26)
[2021-03-12] MEDS: SODIUM BICARBONATE TAB 650 MG TABLET 1300 MG PO (08:26)
[2021-03-12] MEDS: ENOXAPARIN 40 MG/0.4 ML SYRINGE SUB-Q (08:26)
[2021-03-12] MEDS: MONTELUKAST SODIUM 10 MG TABLET PO (08:26)
[2021-03-12] MEDS: ACETAMINOPHEN 500 MG TABLET 1000 MG PO (08:41)
[2021-03-12 10:00] VITALS: BP 136/58; PULSE 96; RESP 16; TEMP 36.6; O2SAT 98
[2021-03-12 12:00] VITALS: PULSE 109
--- NOTE | 2021-03-12 17:03 | PM.DS ---
DS: Admitting Diagnosis Discharge Date 03/12/21 Admitting Diagnosis Catheter-associated urinary tract infection DS: Summary Hospital Course Hospital Course: Ms. Hugo 60 year old female with history of dementia, HTN, HLD, CAD, ulcerative colitis, neurogenic bladder with indwelling White catheter, and several other comorbidities who presented to the emergency department earlier today via EMS from [facility] for evaluation of abnormal labs. She had not been seen at this facility for many years and it sounds like she typically gets her care at [facility]. [employer], she had labs drawn, setting unclear, and she was found to have an elevated BUN and creatinine of 91 and 3.4 respectively there is also paperwork showing that she had normal BUN and creatinine on 02/01/2021. The patient did not really know why she was sent to the hospital. She reported mild weakness and lower abdominal discomfort. ED evaluation revealed: BP was as low as 79/63, but improved with IV fluid rehydration. Labs correlated with acute kidney injury. She was also noted to have pus in her White catheter which appeared to be draining. (1) Sepsis: Code(s): A41.9 - Sepsis, unspecified organism Status: Acute Assessment and Plan: Tachycardia and hypotension in the setting of urinary tract infection POA Lactic acid levels within normal limits Blood pressures improved with IVF Continue with IV antibiotics UC probable contamination BC NGTD s/P IVF (2) Catheter-associated urinary tract infection: Code(s): T83.511A - Infection and inflammatory reaction due to indwelling urethral catheter, initial encounter; N39.0 - Urinary tract infection, site not specified Status: Acute Assessment and Plan: Noted to have pus in White catheter and urinalysis grossly abnormal Afebrile, no leukocytosis Urology consulted, recommendations appreciated Continue empiric Rocephin UC and BC noted above Chronic White secondary to neurogenic bladder, continue monthly changes She will need outpatient urology follow-up, 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 1.7-->1.10-->1 today S/p IVF Renal ultrasound showed mild left and minimal right hydronephrosis S/p IVF Avoid nephrotoxins Renally dose all meds Monitor BMP closely (4) Dehydration: Code(s): E86.0 - Dehydration Status: Acute Assessment and Plan: Improving s/p IVF (5) Hypertension: Code(s): I10 - Essential (primary) hypertension Status: Acute Assessment and Plan: Hypotensive on admission (79/63) BP improved with fluids Continue to hold antihypertensives, resume when clinically appropriate (6) Pelvic mass: Code(s): R19.00 - Intra-abdominal and pelvic swelling, mass and lump, unspecified site Status: Acute Assessment and Plan: Pelvic cystic mass most likely of right ovarian origin noted on CT a/p No mention on CT reading that this may be causing hydroureteronephrosis, follow up outpatient (7) Metabolic acidosis: Code(s): E87.2 - Acidosis Status: Acute Assessment and Plan: Normal anion gap. Bicarb 13 Begin p.o. sodium bicarbonate 1300 mg b.i.d. Monitor BMP (8) Hypokalemia: Code(s): E87.6 - Hypokalemia Status: Acute Assessment and Plan: Potassium 3.1-->3.2-->3.3-->3.4 today Will give 40 mEq p.o. KCl Monitor Supplement as needed (9) Anemia: Code(s): D64.9 - Anemia, unspecified Status: Acute Assessment and Plan: Hgb 7.9 Iron studies reviewed, Iron deficiency Will supplement Transfuse if <7 Monitor Time Spe
== END 2021-03-12 14:09 | DRG 698 ==
LOC: ANHED 17:07 → ANHIMU 22:14 → ANH2MED 03-12 11:00 → ANHIMU 03-14 15:53
PROVIDERS: Emergency Medicine; Physician Assistant; Admitting Provider Internal Medicine; Emergency Provider General Practice; Visit Provider Nurse Practitioner Adult Health
DX: T83.511A Infection and inflammatory reaction due to indwelling urethral catheter, initial encounter (principal); A41.9 Sepsis, unspecified organism; N17.9 Acute kidney failure, unspecified; E87.2 Acidosis; N39.0 Urinary tract infection, site not specified; E86.0 Dehydration; I10 Essential (primary) hypertension; E87.6 Hypokalemia; D64.9 Anemia, unspecified; E78.5 Hyperlipidemia, unspecified; F03.90 Unspecified dementia, unspecified severity, without behavioral disturbance, psychotic disturbance, mood disturbance, and anxiety; N31.9 Neuromuscular dysfunction of bladder, unspecified; R19.00 Intra-abdominal and pelvic swelling, mass and lump, unspecified site; I25.10 Atherosclerotic heart disease of native coronary artery without angina pectoris; Z79.899 Other long term (current) drug therapy
CPT/HCPCS: 36415; 36600; 71045; 74176; 76775; 80048; 80053; 81001; 82375; 82550; 82607; 82728; 82746; 82805; 82948; 83050; 83540; 83550; 83605; 83735; 84439; 84443; 84480; 85014; 85018; 85025; 85027; 87040; 87086; 87088; 93005; 93970; 96361; 96365; 96372; 99285; A9270; G0378; J0131; J0696; J1650; J1756; J3480; J7030

== ENCOUNTER 2024-09-16 11:24 | Inpatient (IN) | payer MEDICARE, MEDICAID, SELFPAY ==
[2024-09-16] VITALS (9 sets, daily range): BP systolic 96–127; BP diastolic 39–71; PULSE 76–143; RESP 19–22; TEMP 36.3–36.7; O2SAT 97–100
--- NOTE | ~2024-09-16 | XR_ITS ---
EXAMINATION: XR chest PICC line DATE: 09/18/2024 10:53 INDICATION: PICC line placement TECHNIQUE: frontal view of the chest was obtained. COMPARISON: Chest radiograph dated 03/07/21 FINDINGS: Right upper extremity peripherally inserted central venous catheter (PICC) tip at the superior cavoa trial junction. Mild linear discoid atelectasis at the left lung base. No other airspace opacities, p ulmonary edema, pleural effusion or pneumothorax. The cardiomediastinal silhouette is normal. Thoraci c dextroscoliosis. IMPRESSION: 1. Right upper extremity PICC line tip at the superior cavoatrial junction. 2. Mild discoid atelectasis at the left lung base. No other acute cardiopulmonary disease. Reviewed, dictated and finalized at location A. IMPRESSION: 1. Right upper extremity PICC line tip at the superior cavoatrial junction. 2. Mild discoid atelectasis at the left lung base. No other acute cardiopulmona ry disease.
--- NOTE | ~2024-09-16 | US_ITS ---
EXAMINATION: US renal BI DATE: 09/20/2024 10:23 INDICATION: Hydronephrosis TECHNIQUE: Multiple ultrasound grayscale images of the kidneys were obtained. COMPARISON: CT dated 09/16/2024 and ultrasound dated 03/08/2021 FINDINGS: The right kidney measures 9.5 x 4.7 x 4.5 cm. The left kidney measures 10.5 x 4.7 x 4.8 cm. The kidne ys demonstrate normal echogenicity. Unchanged mild right hydronephrosis. There is no hydronephrosis i n the left kidney. No stones identified. The bladder is nonvisualized, likely decompressed with a Fo renata catheter reportedly in place.. IMPRESSION: 1. Persistent mild right hydronephrosis. Reviewed, dictated and finalized at location A.
--- NOTE | ~2024-09-16 | XR_ITS ---
XR abdomen gastric tube insert INDICATION: Evaluate NG tube position. TECHNIQUE: Limited KUB perform for evaluating NG tube . COMPARISON: No prior studies for comparison. FINDINGS: NG tube tip in the stomach. Visualized bowel gas pattern is nonspecific.There is residual contrast in the renal collecting systems. There is an IVC filter present, superior tip at L1. IMPRESSION: 1: NG tube tip in the stomach. Reviewed, dictated and finalized at location A.
--- NOTE | ~2024-09-16 | XR_ITS ---
XR abdomen/kub 1V Ordering provider: Alfredo Pérez MD History: . fecal impaction . Comparison: September 17, 2024 FINDINGS: BOWEL: Slightly dilated bowel loops are seen involving the small and large bowel which may indicate i leus. Early obstruction cannot be excluded. Follow-up advised. ORGANOMEGALY: None. SIGNIFICANT PATHOLOGIC CALCIFICATIONS: None. OTHER: No free air is seen under the diaphragm. IMPRESSION: Slightly dilated small and large bowel loops. Follow-up and clinical correlation advised. Reviewed, dictated and finalized at location A. IMPRESSION: Slightly dilated small and large bowel loops. Follow-up and clinical correlatio n advised.
--- NOTE | ~2024-09-16 | CT_ITS ---
CLINICAL INDICATION: Nausea vomiting and diarrhea with hematemesis and abdominal pain COMPARISON: 03/07/2021. TECHNIQUE: Multiple contiguous axial images of the abdomen and pelvis were performed following the ad ministration of with 100 mL Omnipaque-350 intravenous contrast The dose-length product (DLP) was 329.47 mGy-cm. Automated exposure control and iterative reconstruction technique were employed. FINDINGS/OBSERVATIONS: Visualized lower thorax: The bilateral lung bases are clear. The heart is of normal size, without pericardial effusion. Moderate hiatal hernia is present. Within the abdomen: Multiple loops of air and fluid-filled dilated colon and small bowel extending to the rectum which is distended with feces with surrounding inflammatory change. The fecal impaction also demonstrates mass effect on the patient's distal ureters and bladder. The bladder is decompressed with a White catheter. Bilateral hydroureteronephrosis extending to the level of the fecal impaction. IVC filter within the inferior vena cava. IMPRESSION: High-grade bowel obstruction secondary to fecal impaction with mass effect on the distal ureters caus ing bilateral hydroureteronephrosis. Reviewed, dictated and finalized at location A. IMPRESSION: High-grade bowel obstruction secondary to fecal impaction with mass effect on t he distal ureters causing bilateral hydroureteronephrosis.
--- NOTE | ~2024-09-16 | XR_ITS ---
XR abdomen/kub 1V 09/17/2024 08:20 Indication: Bowel obstruction. Fecal impaction. Procedure: KUB Comparison: No prior studies for comparison. Findings: There is moderate colonic and rectal fecal loading. There is nonobstructive bowel gas patte rn. There is an IVC filter with the superior tip of the L1-2 level. There is residual contrast in the renal collecting systems bilaterally from CT abdomen performed 09/16/2024. There is deformity of the pelvis and hips, likely developmental. Lung bases are unremarkable. Impression: 1: Moderate colonic and rectal fecal loading. Reviewed, dictated and finalized at location A. Impression: 1: Moderate colonic and rectal fecal loading.
--- NOTE | 2024-09-16 11:40 | ED.GENADULT ---
HPI - General Adult General Chief complaint: GI Bleed Stated complaint: coffee ground emesis Time Seen by Provider: 09/16/24 11:24 History of Present Illness HPI narrative: 64-year-old female with hsx dementia, hypertension, hyperlipidemia, coronary artery disease, ulcerative colitis, neurogenic bladder with indwelling White catheter, and several other comorbidities presents to the emergency department from [facility] for evaluation for coffee-ground emesis, diarrhea and low blood pressure. Patient is passing large amounts of liquid stool that is Hemoccult negative Related Data Home Medications ?Medication ?Instructions ?Recorded ?Confirmed ?Last Taken ?Type hydroxyzine pamoate 25 mg capsule 25 mg PO BID 03/07/21 09/16/24 Unknown History lactulose 10 gram/15 mL oral 10 g PO TID PRN Constipation 03/07/21 09/16/24 Unknown History solution losartan 25 mg tablet 25 mg PO DAILY 03/07/21 09/16/24 Unknown History mirtazapine 15 mg tablet 15 mg PO HS 03/07/21 09/16/24 Unknown History montelukast 10 mg tablet 10 mg PO DAILY 03/07/21 09/16/24 Unknown History pantoprazole 40 mg tablet,delayed 40 mg PO DAILY 03/07/21 09/16/24 Unknown History release sertraline 50 mg tablet 50 mg PO DAILY 03/07/21 09/16/24 Unknown History simvastatin 20 mg tablet 20 mg PO HS 03/07/21 09/16/24 Unknown History sucralfate 1 gram tablet 1 g PO BID 03/07/21 09/16/24 Unknown History Lactobacillus acidophilus 1 cap PO DAILY 03/08/21 09/16/24 Unknown History (Acidophilus capsule) acetaminophen 500 mg capsule 1,000 mg PO Q6H PRN Pain 03/08/21 09/16/24 Unknown History ascorbate calcium (vitamin C) 500 500 mg PO BID 03/08/21 09/16/24 Unknown History mg tablet cholecalciferol (vitamin D3) 25 4,000 unit PO DAILY 03/08/21 09/16/24 Unknown History mcg (1,000 unit) tablet docusate sodium 100 mg capsule 100 mg PO BID PRN constipation 03/08/21 09/16/24 Unknown History ergocalciferol (vitamin D2) 25,000 50,000 unit PO WEEKLY 03/08/21 09/16/24 Unknown History unit capsule ferrous sulfate 325 mg (65 mg 325 mg PO BID 03/08/21 09/16/24 Unknown History iron) tablet (Iron (ferrous sulfate)) multivitamin with minerals (Daily 1 tablet PO DAILY 03/08/21 09/16/24 Unknown History Multivitamin-Minerals tablet) irbesartan 75 mg tablet 75 mg PO DAILY 09/16/24 09/16/24 Unknown History potassium chloride 10 mEq 10 meq PO BID 09/16/24 09/16/24 Unknown History tablet,extended release Allergies Allergy/AdvReac Type Severity Reaction Status Date / Time lorazepam Allergy Unknown Verified 03/07/21 14:22 Review of Systems Review of Systems: All systems reviewed & are unremarkable except as noted in HPI and below PMFSH Past Medical History Medical History Presence of IVC filter Hypertension Neurogenic bladder Deep venous thrombosis Coronary artery disease Poorly documented and patient denies. Anxiety Chronic anemia Arthritis Gastroesophageal reflux disease Ulcerative colitis Hyperlipidemia Dementia Chronic indwelling White catheter Surgical History Surgical History History of colon resection Family History Family History Other Family history unknown Social History Social History Social History: Surrogate decision maker: Amanda Parker, sibling. Code status: Full code. Smoking status: Unknown if ever smoked Alcohol intake: never Substance use: never Do You Feel Safe in your Home?: Yes Lack of Transportation: No Lack of Food: Never True Current Housing: I Do Not Have Housing Concerned About Future Housing: No Difficulty Paying Gas/Electric Bills: No Difficulty Paying for Meds: No Currently Unemployed: No Education: Don't Know Difficulty w/ Childcare or Family Care: No Additional living arrangements comments: The patient is a resident at [facility]. Additional occupation/education comments: Disabled. Spiritual care concerns: No Exam Narrative: APPEARANCE: Cachectic and contracted HEAD: normocephalic, atraumatic. EYES: PERRLA/EOMI, conjunctivae clear. NOSE: Normal no drainage EARS:TMS clear with good light reflex. THROAT: Pharynx clear, no exudate. NECK: Supple. No adenopathy, no masses. RESPIRATORY: Airway patent, respirations nonlabored. Clear to auscultation bilaterally, no rales, rhonchi, wheezing. CARDIOVASCULAR: Regular rate and rhythm without murmurs rubs or gallops. ABDOMINAL: Distended abdomen MUSCULOSKELETAL: Moves all extremities. Strength/ROM intact, No edema, No calf tenderness. NEURO: Alert. Cranial nerves II through XII intact. Good gait. Good coordination SKIN: Warm, dry. Normal Color Course Vital Signs Vital signs: Vital Signs Pulse Rate 125 H 09/16/24 12:00 Respiratory Rate 22 H 09/16/24 12:00 Blood Pressure 110/49 L 09/16/24 12:00 Pulse Oximetry 100 09/16/24 12:00 Temperature 98.1 F 09/16/24 16:18 Pulse Rate 76 09/16/24 18:00 Respiratory Rate 20 09/16/24 16:18 Blood Pressure 127/71 09/16/24 16:18 Pulse Oximetry 99 09/16/24 16:18 Procedures Rectal Disimpaction Rectal Disimpaction #1: Rectal Disimpaction Date: 09/16/24 Rectal Disimpaction Time: 11:54 Time out performed rectal disimpaction: Yes Indication: fecal impaction Procedural Sedation: No Sedation/Analgesia: none Technique: manual disimpaction with gloved finger Result: significant stool output Patient Tolerated Procedure: well and no complications Complications: none Medical Decision Making MDM Narrative Medical decision making narrative: 64-year-old female presented to the emergency department for evaluation for emesis and diarrhea. Patient was Hemoccult negative on her stool. CT scan showed fecal impaction and a high-grade bowel obstruction. Attempted digital disimpaction x2 and multiple subsets and among the emergency department without significant change in the amount of fecal impaction. Patient initially had elevated heart rate and low blood pressure. Patient was treated with 2 L IV fluids and patient's blood pressure blood pressure heart rate improved. Surgery and GI were consulted. Differential Diagnosis Differential Diagnosis: GI bleed, constipation, UTI Vital Signs Vital Signs: Vital Signs Pulse Rate 125 H 09/16/24 12:00 Respiratory Rate 22 H 09/16/24 12:00 Blood Pressure 110/49 L 09/16/24 12:00 Pulse Oximetry 100 09/16/24 12:00 Temperature 98.1 F 09/16/24 16:18 Pulse Rate 76 09/16/24 18:00 Respiratory Rate 20 09/16/24 16:18 Blood Pressure 127/71 09/16/24 16:18 Pulse Oximetry 99 09/16/24 16:18 Lab Data Lab results reviewed: Yes I reviewed the patient's lab results. 09/16/24 14:14 09/16/24 14:14 Labs: Lab Results 09/16/24 09/16/24 Range/Units 13:23 14:14 WBC 15.3 H (4.5-10.0) K/mm3 RBC 2.88 L (4.2-5.4) M/mm3 Hgb 8.3 L (12.0-15.0) g/dL Hct 27.1 L (37.0-47.0) % MCV 94.1 (80-100) fl MCH 28.8 (26-34) pg MCHC 30.6 L (32-36) g/dl RDW 15.1 H (11.5-14.5) % Plt Count 248 (150-375) k/mm3 MPV 9.5 (7.4-10.4) fl Immature Gran % (Auto) Not Reportable Neut % (Auto) Not Reportable Lymph % (Auto) Not Reportable [place] % (Auto) Not Reportable Eos % (Auto) Not Reportable Baso % (Auto) Not Reportable Lymph # (Auto) Not Reportable [facility] # (Auto) Not Reportable Eos # (Auto) Not Reportable Baso # (Auto) Not Reportable Abs Immat Gran (auto) Not Reportable Absolute Neuts (auto) Not Reportable Absolute Nucleated RBC Not Reportable Total Counted 100 Neutrophils % (Manual) 77 H (46-73) % Band Neutrophils % 13 H (0-6) % Lymphocytes % (Manual) 3 L (18-44) % Monocytes % (Manual) 7 (3-9) % Eosinophils % (Manual) 0 (0-4) % Basophils % (Manual) 0 (0-1) % Nucleated RBC % Not Reportable Abs Neuts (Manual) 13.77 H (1.7-7.2) K/mm3 Abs Lymphs (Manual) 0.45 L (1.1-4.5) K/mm3 Abs Monocytes (Manual) 1.07 H (0.1-0.90) K/mm3 Absolute Eos (Manual) 0.00 L (0.02-0.50) K/mm3 Abs Basophils (Manual) 0.00 (0.0-0.1) K/mm3 Platelet Estimate Adequate (Adequate) Hypochromasia 1+ Anisocytosis 1+ Ovalocytes 1+ Schistocytes None seen PT 14.4 (11.1-14.7) Seconds INR 1.1 APTT 31.0 (22.3-36.8) Seconds Sodium 133 L (137-145) mmol/L Potassium 4.1 (3.4-5.0) mmol/L Chloride 106 (98-107) mmol/L Carbon Dioxide 14 L (22-30) mmol/L Anion Gap 13 H (4-12) mmol/L BUN 32 H D (7-17) mg/dL Creatinine 1.60 H 1.38 H (0.7-1.2) mg/dL Estim Creat Clear Calc Not Reportable Not Reportable Estimated GFR 32 L 38 L (59 - ) Glucose 122 H (65-110) mg/dL Lactic Acid 2.0 (0.7-2.0) mmol/L Calcium 7.9 L (8.4-10.2) mg/dL Total Bilirubin 0.6 (0.2-1.3) mg/dL AST 26 (14-36) U/L ALT 16 (6-35) U/L Alkaline Phosphatase 112 (38-126) U/L Total Protein 6.0 L (6.3-8.2) g/dL Albumin 3.2 L (3.5-5.1) g/dL Urine Color Dark yellow (Yellow) Urine Appearance Turbid H (Clear) Urine pH 5.5 (5.0-9.0) Ur Specific [place] 1.022 (1.001-1.035) Urine Protein 2+ H (Negative) mg/dL Urine Glucose (UA) Negative (Negative) mg/dL Urine Ketones Negative (Negative) mg/dL Ur Blood (Man) 2+ H (Negative) Urine Nitrate Negative (Negative) Urine Bilirubin 1+ H (Negative) Urine Urobilinogen 1.0 (<2.0) mg/dL Add Ur Microanalysis Reviewed Leukocyte Esterase Rfl 3+ H (Negative) CURLY/UL Urine RBC 21-50 H (0-2) /hpf Urine WBC >100 H (0-3) /hpf Urine WBC Clumps Present H (None) /HPF Ur Squamous Epith Cells Many H (Few) /hpf Urine Bacteria 4+ /hpf Urine Casts 11-20 C. difficile (PCR) Negative (NEGATIVE) Influenza A (RT-PCR) Negative (Negative) Influenza B (RT-PCR) Negative (Negative) RSV (RT-PCR) Negative (Negative) SARS-CoV-2 RNA (RT-PCR) Negative (Negative) Blood Type O Positive Antibody Screen Negative Imaging Data Radiologist's impression: Impressions Abdomen/Pelvis CT 09/16/24 13:53 IMPRESSION: High-grade bowel obstruction secondary to fecal impaction with mass effect on the distal ureters causing bilateral hydroureteronephrosis. Discharge Plan Discharge Clinical Impression: Bowel obstruction, Fecal impaction, Acute UTI Patient Disposition: Still a Patient Condition: Stable
--- OUTSIDE RECORDS SUMMARY | 2024-09-16 12:23 | XMS_ITS | Clinical Summary ---
Author Organization [facility] Address [address] [place] [address] Care Team Providers Care Solar Business Developer Name Role Phone Darren Solomon Primary Care Provider + Source Comments [facility],non-owned Affiliates and Associated Physician Practices is amultiple site organization consisting of ambulatory clinics and hospital sitesin [place], [place], [place] and [place]. This disclosure is being madepursuant to the Care Everywhere program and may not contain all information available regarding this patient. Last updated 18.[facility] Allergies No known active allergies Medications * Be aware that medications may not be up to date on this document. Alwaysverify current medications with the patient. Medication Sig Dispensed Refills Start Date End Date Status amitriptyline (ELAVIL) 10 MG tablet Take 2 tablets every day by oral route at bedtime for 30 days. Active iron polysaccharides (NIFEREX 150) 150 MG capsule Take 150 mg by mouth once daily Active sertraline (ZOLOFT) 25 MG tablet Take 25 mg by mouth once daily Active oxyCODONE-acetaminoph en (PERCOCET) 5-325 MG tablet Take 1 tablet by mouth every 4 hours as needed 30 tablet 03/19/2018 Active ondansetron, disintegrating, (ZOFRAN ODT) 4 MG tablet Take 1 tablet by mouth every 6 hours as needed for Nausea/Vomiting Allow tablet to dissolve on the tongue 30 tablet 03/19/2018 Active docusate sodium (COLACE) 100 MG capsule Take 1 capsule by mouth 2 times daily 30 capsule 03/26/2018 Active menthol-zinc oxide (CALMOSEPTINE) 0.44-20.625 % ointment Apply to affected area 2 times daily 120 g 03/26/2018 Active polyethylene glycol 3350 (MIRALAX) packet Take 17 g by mouth once daily 1 packet 1 03/27/2018 Active ALPRAZolam (XANAX) 0.5 MG tablet Take 1 tablet by mouth 3 times daily as needed for Anxiety 04/20/2018 Active benzonatate (TESSALON) 200 MG capsule Take 1 capsule by mouth 3 times daily as needed for Cough 04/20/2018 Active diphenhydrAMINE (BENADRYL) 25 MG capsule Take 1 capsule by mouth every 4 hours as needed for Itching 04/20/2018 Active hydrocortisone (LACTICARE-HC) 1 % lotion Apply to affected area 4 times daily 04/20/2018 Active ibuprofen (MOTRIN) 600 MG tablet Take 1 tablet by mouth every 6 hours as needed (when working with Physical therapy) 04/20/2018 Active menthol-zinc oxide (CALMOSEPTINE) 0.44-20.625 % ointment Apply to affected area as needed for Other 04/20/2018 Active metoprolol tartrate (LOPRESSOR) 25 MG tablet Take 1 tablet by mouth 2 times daily 04/20/2018 Active ondansetron (ZOFRAN) 2 MG/ML injection 4 mg by Intravenous route every 6 hours as needed for Nausea/Vomiting 04/20/2018 Active Active Problems Problem Noted Date Diagnosed Date Anemia 03/31/2018 Protein-energy malnutrition 03/26/2018 Pain and swelling of right lower leg 03/24/2018 S/P PICC central line placement 03/13/2018 Overview (03/13/2018): [facility] VAT RT BASILIC Abdominal pain, generalized 03/04/2018 Bacteremia 03/04/2018 Acute pyelonephritis 03/04/2018 Resolved Problems Problem Noted Date Diagnosed Date Resolved Date Cough 03/24/2018 04/21/2018 Immunizations Name Administration Dates Next Due INFLUENZA VACCINE, QUADR. (F LUZONE; FLULAVAL; FLUARIX; AFLURIA QUADRIVALENT; 6MO+), 0.5 ML (IIV4) 03/07/2018 Social History Tobacco Use Types Packs/Day Years Used Date Smoking Tobacco: Never Smokeless Tobacco: Never Tobacco Cessation:Counseling Given: No Alcohol Use Standard Drinks/Week Comments No 0 (1 standard drink = 0.6 oz pur e alcohol) Sex and Gender Information Value Date Recorded Sex Assigned at Not on file Gender Identity Not on file Sexual Orientation Not on file Last Filed Vital Signs Vital Sign Reading Time Taken Comments Blood Pressure 123/50 04/20/2018 12:50 PM SPRING COVERER Pulse 86 04/20/2018 12:50 PM SPRING COVERER Temperature 36.4 C (97.5 F) 04/20/2018 12:50 PM SPRING COVERER Respiratory Rate 18 04/20/2018 12:50 PM SPRING COVERER Oxygen Saturation 100% 04/20/2018 12:50 PM SPRING COVERER Inhaled Oxygen Concentration - - Weight 45.4 kg (100 lb) 03/24/2018 12:23 PM CDT Height 177.8 cm (5' 10 ) 03/24/2018 12:23 PM CDT Body Mass Index 14.35 03/24/2018 12:23 PM CDT Plan of Treatment Health Maintenance Due Date Last Done Comments BONE DENSITY TESTING 1958 COLOGUARD (AGES 45-75) - COLON CA SCREENING 1958 COLON MONITORING 1958 COLONOSCOPY - COLON CA SCREENING 1958 CT COLONOGRAPHY - COLON CA SCREENING 1958 Colorectal Cancer Screening 1958 FIT - COLON CA SCREENING 1958 FLEX SIG - COLON CA SCREENING 1958 LIPID TESTING 1958 MAMMOGRAM 1958 MEDICARE AWV 12 MONTHS 1958 HEPATITIS C SCREENING 05/30/1976 DTAP/TDAP/TD VACCINES (1 - Tdap) 1977 PNEUMOCOCCAL VACCINE 50+ (1 of 1 - PCV) 2008 ZOSTER VACCINE (1 of 2) 2008 COVID-19 VACCINE (1 - season) 2024 DEPRESSION SCREENING 06/16/2024 INFLUENZA VACCINE (Season Ended) 2025 03/07/2018, 03/03/2017, 04/04/2016, Additional history exists Respiratory Syncytial Virus (RSV) Vaccine Pt: or over 60 yrs (1 - 1-dose 75+ series) 2033 HEPATITIS B VACCINE Aged Out No longe r eligible based on patient's age to complete this topic HIB VACCINE Aged Out No longer eligi ble based on patient's age to complete this topic HPV VACCINE Aged Out No longer eligi ble based on patient's age to complete this topic MENINGOCOCCAL (Group B) VACCINE SHARED DECISION-MAKING Aged Out No longer eligible based on patient's age to complete this topic MENINGOCOCCAL GROUPS A/C/Y/W VACCINE Aged Out No longer eligible based on patient's age to complete this topic Additional Health Concerns Infection Onset Date Last Indicated MRSA 03/06/2018 03/06/2018 Advance Directives * Full Code (Latest Code Status on File) Date Activated Date Inactivated Comments 03/24/2018 8:07 PM 04/20/2018 5:27 PM * Full Code Date Activated Date Inactivated Comments 03/05/2018 1:07 AM 03/19/2018 10:02 PM * Full Code Date Activated Date Inactivated Comments 03/04/2018 11:36 PM 03/05/2018 1:07 AM Care Teams Solar Business Developer Relationship Specialty Start Date End Date Darren Solomon PA [address] [place] [id number] PCP - General Physician Director Loss Prevention 03/02/18
--- OUTSIDE RECORDS SUMMARY | 2024-09-16 12:23 | XMS_ITS | Data Portability ---
Author Organization [facility] Address [address] [place] [address] Assessment No assessment recorded. Plan of Treatment Reminders Order Date Submit Date Provider Last Modified By Organization Details Last Modified Time Details Appointments None recorded . Lab culture, urine 2017 018 ENRRIQUE JENISE[facility] [employer] [address], [address], [place], [address], 8 10:02:00 CMP, serum or plasma 2017 018 ENRRIQUE JENISE, [address] [place] [address], [address], [place], [address], 8 10:21:16 CBC w/ auto diff 2017 018 ENRRIQUE JENISE, [address] [place], [place] [address] [address], [address], [place], [address], 8 10:21:15 TSH + free T4, serum 2017 018 ENRRIQUE JENISE, [address] [place] [address], [address], [place], [address], 8 10:21:14 vitamin B12 + folate, serum or blood 2017 018 ENRRIQUE JENISE, [address] [place], [place] [address] [address], [address], [place], [address], 8 10:21:11 Referral prison facility referral 2018 [facility], [address] [place], [address], 9 17:19:23 Procedures None recorded . Surgeries None recorded . Imaging CT, abdomen, w/wo contrast - Loss of appetite , worse over the last 6 months 2017 018 [facility] ([facility]), [address], [place], [address], 8 12:55:03 XR, knee, 4 or more view 2016 017 ENRRIQUE Not available 7 11:49:55 Medication Orders mirtazap ine 15 mg tablet 2018 019 INTERFACE [facility], [address] [place], [address], 9 17:18:48 sertrali ne 50 mg tablet 2018 019 INTERFACE [facility], [address] [place], [address], 9 17:17:59 topirama te 25 mg tablet 2017 018 INTERFACE [facility], [address] [place], [address], 8 10:01:54 omeprazo le 20 mg capsule, delayed release 2017 018 INTERFACE [facility], [address] [place], [address], 8 10:02:36 docusate sodium 100 mg capsule 2017 018 INTERFACE [facility], [address] [place], [address], 8 10:03:16 docusate sodium 100 mg capsule 2017 018 [facility], [address] [place], [address], 8 10:21:22 Linzess 145 mcg capsule 2017 018 [facility], [address] [place] [address], [address], 8 10:21:22 ergocalc iferol (vitamin D2) 1,250 mcg (50,000 unit) capsule 2017 018 [facility], [address] [place] [address], [address], 8 10:30:19 topirama te 25 mg tablet 2016 017 [facility], [address] [place] [address], [address], 7 10:29:20 naproxen 500 mg tablet 2016 017 [facility], [address] [place] [address], [address], 9 16:37:32 amitript yline 10 mg tablet 2016 017 [facility], [address] [place] [address], [address], 9 16:39:32 omeprazo le 20 mg capsule, delayed release 2016 017 [facility], [address] [place] [address], [address], 7 10:26:06 ibuprofe n 800 mg tablet 2016 017 [facility], [address] [place] [address], [address], 9 16:38:38 monteluk ast 10 mg tablet 2016 017 [facility], [address] [place] [address], [address], 7 14:35:51 losartan 25 mg tablet 2016 017 [facility], [address] [place] [address], [address], 7 14:35:54 prometha zine-DM 6.25 mg-15 mg/5 mL oral syrup 2016 017 [place] [address], [address] [place] [address], [address], 7 10:02:43 ranitidi ne 150 mg tablet 2016 017 [place] [address], [address] [place] [address], [address], 9 16:36:18 azithrom ycin 250 mg tablet 2016 017 [place] [address], [address] [place] [address], [address], 7 10:01:35 docusate sodium 100 mg capsule 2016 017 [facility], [address] [place] [address], [address], 7 14:35:59 ferrous sulfate 325 mg (65 mg iron) tablet 2016 017 [place] [address], [address] [place] [address], [address], 7 14:35:52 ergocalc iferol (vitamin D2) 1,250 mcg (50,000 unit) capsule 2016 017 INTER[facility], [address], [place], [address], 7 14:35:53 Patient TargetsNo targets recorded. Patient Instructions Encounter Date Encounter Id Patient Instructions Last Modified By Organization Details Last Modified Time 07/30/2017 [id number] unable to give u s a urine specimen ...gave her a cup , she will bring us a specimen... jose rafael Not available 07/30/2017 12:58:26 11/13/2018 [id number] let's try to get her back on some meds , can she see Er. Habib? try to make an appointment jose rafael Not available 11/14/2018 18:00:02 Reason for Referral [facility] Ref erral for Depressive disorder depression , unable to care for self Referring Physician: Darren Solomon, Family Medicine, Encounter Date: 11/13/2018 Results Created Date Observation Date Name Description Value Unit Range Abnormal Flag Note LastModifiedBy Organization Detail LastModifiedTime 03/05/20 17 03/05/2017 XR, knee, 4 or more view No observ ation record ed. [email or web address] [facility] ([facility]) [address] [place], [address], 03/18/2017 17:39:20 Result Notes None recorded. Problems Name Problem SNOMED Code Status Onset Date Resolution Date Notes Provider Name and Address Organization Details Recorded Time Dysuria 21912752 Active 2017 Darren Solomon PA-C Attn: Vance andrade,[address], [place], [address], [place] [facility] 8 10:01:10 Constipation 47121061 Active 2017 Darren Solomon PA-C Attn: Vance andrade,[address] [facility], [place], [address], [place] [facility] 8 10:02:43 Loss of appetite 05210248 Active 2017 Darren Solomon PA-C Attn: Vance andrade,[address] [facility], [place], [address], [place] [facility] 8 10:05:35 Hypertensive disorder 01716672 Active Darren Solomon PA-C Attn: Accountchris g,[address], [place], [address], [place] [facility] 6 11:31:33 Gastroesophage al reflux disease 815073257 Active Darren Solomon PA-C Attn: Accountchris g,[address] [facility], [place], [address], [place] [facility] 6 11:31:33 Headache 87664778 Active Darren Solomon PA-C Attn: Accountchris g,[address], [place], [address], [place] [facility] 6 11:17:33 Anxiety 41076087 Active Darren Solomon PA-C Attn: Accountchris andrdae,[address] [facility], [place], [address], [place] [facility] 6 11:31:33 Depressive disorder 04685113 Active 2018 Darren Solomon PA-C Attn: Vance andrade,[address] [facility], [place], [address], [place] [facility] 9 17:11:41 Sinusitis 33139393 Active Darren Solomon PA-C Attn: Accountchris g,[address] [facility], [place], [address], [place] [facility] 5 10:35:44 Serous otitis media 85361296 Active Darren Solomon PA-C Attn: Accountin g,[address] [facility], [place], [address], [place] [facility] 5 11:09:34 Allergic rhinitis 70887375 Active Darren Solomon PA-C Attn: Accountin g,[address] [facility], [place], [address], [place] [facility] 6 11:31:33 Hyperlipidemia 18436055 Active Darren Solomon PA-C Attn: Accountin g,[address] [facility], [place], [address], [place] [facility] 6 11:31:33 Acute pharyngitis 745249250 Active Darren Solomon PA-C Attn: Accountin g,[address] [facility], [place], [address], [place] [facility] 5 11:09:34 Acute sinusitis 65217970 Active Darren Solomon PA-C Attn: Accountin g,[address] [facility], [place], [address], [place] [facility] 5 11:09:34 Low back pain 532537750 Active Darren Solomon PA-C Attn: Accountin g,[address], [place], [address], [place] [facility] 6 11:31:33 Acute otitis media 4511527 Active Darren Solomon PA-C Attn: Accountin g,[address] [facility], [place], [address], [place] [facility] 6 11:17:33 Insomnia 679061593 Active Darren Solomon PA-C Attn: Accountin g,[address] [facility], [place], [address], [place] [facility] 6 11:17:33 Administration of influenza vaccine Active 2015 Darren Solomon PA-C Attn: Accountin g,[address] [facility], [place], [address], [place] [facility] 6 15:03:30 Vitamin D deficiency 96890664 Active 2015 Darren Solomon PA-C Attn: Accountin g,[address] [facility], [place], [address], [place] [facility] 6 15:07:08 Epigastric pain 27171874 Active 2016 Darren Solomon PA-C Attn: Accountin g,[address], [place], [address], [place] [facility] 7 13:42:12 Anemia 252404549 Active 2016 Darren Solomon PA-C Attn: Vance andrade,[address], [place], [address], [facility] - [facility] 7 10:19:43 Pain in left knee Active 2016 Darren Solomon PA-C Attn: Vance g,[address], [place], [address], [place] [facility] 7 14:37:36 Problem Notes None recorded. Procedures Surgical History Date Name Laterality Status Provider Name and Address Organization Details Recorded Time 06/16/2015 repair of colon completed Manjula Briseno [place] [facility] 11/13/2018 16:40:31 Imaging Results Imaging Date Name Status LastModified by Organiz ation Details LastModified Time 03/05/2017 XR, knee, 4 or more view completed [email or web address] [facility] (Imaging) [address] [place], [address], 03/18/2017 17:39:20 Procedure Notes None recorded. Medical Equipment None Reported. Allergies No known drug allergies Medications Name Sig Start Date Stop Date Status Note LastModified by Organization Details LastModified Time amoxicillin 500 mg caps 12/02 completed Not Available Not Available Not Available acetaminophe n/codeine #3 300-30 mgtabs 11/13 completed Not Available Not Available Not Available ranitidine hcl 150 mg tabs 11/13 completed Not Available Not Available Not Available mirtazapine 15 mg tabs 11/13 completed Not Available Not Available Not Available cyclobenzapr ine hcl 10 mg tabs 11/13 completed Not Available Not Available Not Available omeprazole 20 mg cpdr 11/13 completed Not Available Not Available Not Available ciprofloxaci n hcl 500 mg tabs 04/29 completed Not Available Not Available Not Available amoxicillin/ clavulanate potassium 875-125 mg tabs 12/02 completed Not Available Not Available Not Available mirtazapine 30 mg tabs 11/13 completed Not Available Not Available Not Available ibuprofen 800 mg tabs 07/30 completed Not Available Not Available Not Available losartan potassium 25 mg tabs 11/13 completed Not Available Not Available Not Available penicillin v potassium 250 mg tabs 04/29 completed Not Available Not Available Not Available cephalexin 500 mg caps 04/29 completed Not Available Not Available Not Available amitriptylin e hcl 10 mg tabs 11/13 completed Not Available Not Available Not Available naproxen 500 mg tabs 11/13 completed Not Available Not Available Not Available montelukast sodium 10 mg tabs 11/13 completed Not Available Not Available Not Available olanzapine 15 mg tabs 11/13 completed Not Available Not Available Not Available ibuprofen 600 mg tabs 07/30 completed Not Available Not Available Not Available azithromycin 250 mg tabs 04/29 completed Not Available Not Available Not Available topiramate 25 mg tabs 11/13 completed Not Available Not Available Not Available hydrocodone/ acetaminophe n 5-325 mgtabs 11/13 completed Not Available Not Available Not Available olanzapine 20 mg tabs 11/13 completed Not Available Not Available Not Available penicillin V potassium 250 mg tablet Take 1 tablet every 6 hours by oral route for 10 days. 04/29 completed Not Available Not Available Not Available cyclobenzapr ine 10 mg tablet Take 1 tablet every day by oral route at bedtime for 30 days. 2015 active Not Available Not Available Not Avai lable amoxicillin 500 mg capsule active Not Available Not Available Not Available promethazine -DM 6.25 mg-15 mg/5 mL oral syrup Take 5 mL 3 times a day by oral route as needed for 10 days. 04/29 completed Not Available Not Available Not Available doxycycline hyclate 100 mg capsule active Not Available Not Available N ot Available Carafate 100 mg/mL oral suspension active Not Available Not Available N ot Available azithromycin 250 mg tablet TAKE 2 TABLETS (500 MG) BY ORAL ROUTE ONCE DAILY FOR 1 DAY THEN 1 TABLET (250 MG) BY ORAL ROUTE ONCE DAILY FOR 4 DAYS 04/29 completed Not Available Not Available Not Available ibuprofen 800 mg tablet Take 1 tablet 3 times a day by oral route as needed for 30 days. 11/13 completed Not Available Not Available Not Available meloxicam 15 mg tablet active Not Available Not Available No t Available sucralfate 1 gram tablet active Not Available Not Available Not Available topiramate 25 mg tablet Take 3 tablets every day by oral route at bedtime for 30 days. 2017 active Not Available Not Available Not Avai lable acetaminophe n 300 mg-codeine 30 mg tablet 11/13 completed Not Available Not Available Not Available ciprofloxaci n 500 mg tablet Take 1 tablet every 12 hours by oral route for 10 days. 04/29 completed Not Available Not Available Not Available tramadol 50 mg tablet active Not Available Not Available No t Available amoxicillin 500 mg tablet Take 2 tablets every 12 hours by oral route for 10 days. 12/02 completed Not Available Not Available Not Available ofloxacin 0.3 % ear drops 11/13 completed Not Available Not Available Not Available amitriptylin e 10 mg tablet Take 2 tablets every day by oral route at bedtime for 30 days. 11/13 completed Not Available Not Available Not Available cephalexin 500 mg capsule 04/29 completed Not Available Not Available Not Available pantoprazole 40 mg tablet,delay ed release active Not Available Not Available N ot Available simvastatin 20 mg tablet active Not Available Not Available Not Available ferrous sulfate 325 mg (65 mg iron) tablet Take 1 tablet twice a day by oral route with meals for 30 days. 2016 active Not Available Not Available Not Avai lable nystatin 100,000 unit/gram topical cream active Not Available Not Available Not Available ranitidine 150 mg tablet TAKE ONE TABLET BY MOUTH TWICE DAILY 30 MINUTES PRIOR TO A MEAL 11/13 completed Not Available Not Available Not Available losartan 25 mg tablet TAKE ONE TABLET BY MOUTH ONCE DAILY IN THE MORNING active Not Available Not Available No t Available docusate sodium 100 mg capsule Take 1 capsule twice a day by oral route for 30 days. 2017 active Not Available Not Available Not Avai lable sertraline 25 mg tablet active Not Available Not Available Not Available omeprazole 20 mg capsule,carlos a yed release Take 1 capsule twice a day by oral route before meals for 30 days. 2017 active Not Available Not Available Not Avai lable montelukast 10 mg tablet Take 1 tablet every day by oral route in the morning for 30 days. active Not Available Not Available No t Available olanzapine 15 mg tablet 11/13 completed Not Available Not Available Not Available mirtazapine 15 mg tablet Take 1 tablet every day by oral route at bedtime for 30 days. active Not Available Not Available No t Available ergocalcifer ol (vitamin D2) 1,250 mcg (50,000 unit) capsule Take 1 capsule every week by oral route with meals for 30 days. 2017 active Not Available Not Available Not Avai lable ibuprofen 600 mg tablet 07/30 completed Not Available Not Available Not Available sertraline 50 mg tablet Take 1 tablet every day by oral route in the morning for 30 days. active Not Available Not Available No t Available naproxen 500 mg tablet Take 1 tablet twice a day by oral route with meals for 30 days. 11/13 completed Not Available Not Available Not Available oxycodone 5 mg tablet active Not Available Not Available No t Available Crestor 5 mg tablet Take 1 tablet every day by oral route for 30 days. 2014 active Not Available Not Available Not Avai lable Ferrex 150 active Not Available Not Av ailable Not Available Linzess 145 mcg capsule Take 1 capsule every day by oral route for 30 days. 2017 active Not Available Not Available Not Avai lable Vitals Date Recorded Body height Body mass index (BMI) Body weight Oxygen saturation Oxygen saturation in Arterial blood by Pulse oximetry Heart rate Body temperature Systolic blood pressure Diastolic blood pressure Provider Name and Address Organization Details Last Updated DateTime 8 175.26 cm 18 kg/m2 43320.8 7 g 92 % 92 % 109 /min 98.4 [degF] 108 mm[Hg] 70 mm[Hg] Teresa Valdivia [place] - [facility] 8 09:41:55 Date Recorded Body weight Oxygen saturation Oxygen saturation in Arterial blood by Pulse oximetry Heart rate Body temperature Systolic blood pressure Diastolic blood pressure Provider Name and Address Organization Details Last Updated DateTime 9 94072.8 1 g 97 % 97 % 86 /min 98.4 [degF] 180 mm[Hg] 72 mm[Hg] Manjula Briseno [place] [facility] 9 16:46:50 Date Recorded Body height Body mass index (BMI) Body weight Oxygen saturation Oxygen saturation in Arterial blood by Pulse oximetry Heart rate Body temperature Systolic blood pressure Diastolic blood pressure Provider Name and Address Organization Details Last Updated DateTime 7 175.26 cm 19.5 kg/m2 13791.1 9 g 99 % 99 % 80 /min 99.5 [degF] 130 mm[Hg] 78 mm[Hg] Teresa Valdivia MA [facility] 7 14:06:54 Date Recorded Body height Body mass index (BMI) Body weight Oxygen saturation Oxygen saturation in Arterial blood by Pulse oximetry Heart rate Body temperature Systolic blood pressure Diastolic blood pressure Provider Name and Address Organization Details Last Updated DateTime 7 175.26 cm 19 kg/m2 00689.4 2 g 97 % 97 % 92 /min 98.4 [degF] 126 mm[Hg] 74 mm[Hg] Teresa Valdivia MA [facility] 7 10:00:54 Social History Question Answer Notes LastModified by Organizat ion Details LastModified Time Tobacco Smoking Status Never Smoker Not Available [employer] 04/18/2020 03:43:24 Do You Have An Advance Directive? No [id number] Information not available 04/18/2020 What Is Your Level Of Alcohol Consumption? None [id number] Information not available 04/18/2020 What Is Your Level Of Caffeine Consumption? Heavy [id number] Information not available 04/18/2020 What Type Of Diet Are You Following? REGULAR [id number] Information not available 04/18/2020 Are There Any Guns Present In Your Home? No [id number] Information not available 04/18/2020 Hard Of Hearing Or Deaf In One Or Both Ears? No Information not available 09/21/2014 Legally Blind In One Or Both Eyes? No Information not available 09/21/2014 What Was The Date Of Your Most Recent Tobacco Screening? 11/13/2018 [id number] Information not available 04/18/2020 Performs Monthly Self-breast Exam? Yes Information not available 09/21/2014 Seat Belts Used Routinely Yes Information not available 09/21/2014 Smoke Alarm In Home Yes Information not available 09/21/2014 How Much Tobacco Do You Smoke? No [id number] Information not available 04/18/2020 Do You Use Sunscreen Routinely? No [id number] Information not available 04/18/2020 Sex: Unknown Functional Status Question Answer Note LastModified by Organization D etails LastModified Time What is your exercise level? None [id number] Information not available 04/18/2020 Mental Status None recorded. Family History Relationship Description Onset Age of this Age Resolved Age Notes LastModified by Organization Details LastModified Time Father Diabetes mellitus Not available 2014 10:13:06 Father Heart disease Not available 2014 10:13:06 Father Hypertensive disorder Not available 2014 10:13:06 Mother Heart disease Not available 2014 10:13:06 Mother Hypercholest erolemia Not available 2014 10:13:06 Mother Hypertensive disorder Not available 2014 10:13:06 Mother Migraine Not availabl e 01/18/2015 10:13:06 Medical History Condition Response Coronary Artery Disease N Kidney Cyst N Blood Diseases N Hyperthyroidism N Blood disorders N Blood Transfusion N MRSA N Emphysema N Depression Y COPD N Blood Clots N Pneumonia N Premature N Peripheral Arterial Disease N Edema N TIA N Headaches/Migraines N Anxiety Disorder N Obesity N Polyps N Infertility N Acid Reflux (GERD) Y Hematuria N Stroke N Neck Injury N Polio N Hospital Admission other than N Neurologic Disorder N Other Sleep Disorders N Rheumatoid Arthritis N Fibromyalgia N Abdominal Aortic Aneurysm Repair N Kidney Disease N Heart Conditions N Heart Disease/Heart Problems N Hospitalizations N Brain Tumors N Acne N Skin Problems N Eating Disorder N Meningitis N Constipation N Tuberculosis N Cerebral Palsy N Myocardial Infarction N Asthma N Substance Abuse N Peripheral Vascular Disease N Vertigo N Sleep Disorder N Cirrhosis N Pulmonary Embolism N Chicken Pox N Hematologic Disease N Flomax Use Past or Present N Anxiety/Depression N Thyroid Disease N Colon Cancer N Lung Disease N Glaucoma N Developmental or Behavioral Disorders N Bipolar N Pacemaker N Diverticulitis/Diverticulosis N Orthopedic Problems N Anesthesia Complications N Orthotics N Head Injury/Concussion N Congenital Anomalies N Santiago Bite N Chronic Kidney Disease N Endometriosis N Liver Disease N Schizophrenia N Dialysis N Speech Delay N Chronic Obstructive Pulmonary Disease N Parkinson's Disease N Thyroid Problems N GI Problems N Developmental Delay N Anemia N Multiple Sclerosis N Immune System Disorder N Colon Polyps N Heart Attack ([place]) N Diabetes N Cardiomyopathy N Blood Transfusions N Heart Problems/Murmur N Eye Trauma N Congestive Heart Failure (CHF) N Valvular Heart Disease N Hyperlipidemia N Double Vision N Abuse/Domestic Violence N Hepatitis B N Lupus N Epilepsy/Seizures N Reflux/GERD N Aneurysm N Heart Disease N Bronchitis N Pre-Eclampsia N Hypertension N Heart Failure N Other N Gout N High Blood Pressure N Atrial Fibrillation N Kidney Stones N Head Trauma/Injury N Congenital Heart Disease N Spine Problems N Gastrointestinal Disease N Lung Mass N Sinusitis N Obstructive Sleep Apnea N Muscle, Joint, or Bone Problems N Autoimmune disease N Vision or Eye Problems N Arthritis N Blood Clot N Cancer N Seasonal allergies N Leg or Foot Ulcers N Raynaud's Disease N Aortic Aneurysm N Arrhythmia N Headaches Y Heart Problems N Ambloypia N Ear or Hearing Problems N Hyperparathyroidism N Migraines N Artificial Joints N Kidney or Bladder Problems N NSAID Use N Encephalitis N PTSD N Ulcers N Prostate Hypertrophy N Bleeding Disorder N AIDS/HIV N Urinary Tract Infection N Back Problems N Allergies N Atrial Flutter N GERD/Reflux N Hepatitis N Autism Spectrum Disorder (ASD) N Breast Cancer N Hernia N Hypothyroidism N Breast Problem N Genitourinary Disease N Deep Vein Thrombosis N Varicose Veins N Cystic Fibrosis N Hearing Loss N Developmental Problems N Carotid Disease N Vitamin D Deficiency N ADHD N Bladder or Kidney Problems N High Cholesterol N [place] N Valvular Abnormalities N Psychiatric/Mental Health Condition N Organ Transplant N Foot Deformity N Allergies/Hayfever N Dyslipidemia N Hyponatremia N Diabetic Eye Disease N Osteoporosis/Osteopenia N Back Pain N Proteinuria N Mental Illness N Neurological Problems N Ovarian Cancer N Bedwetting N Seizures/Epilepsy N Kidney Failure N Ocular trauma N Diverticulitis N Dementia N Sleep Apnea N Mental Problems N Warfarin Management N Osteoporosis N Gynecological HistoryNo gynecological history recorded. Obstetrics History GPAL:G 0 P 0 0 0 0 Immunizations Vaccine Type Date Status Note Provider Nam e and Address Organization Details Recorded Time COVID-19, mRNA, LNP-S, PF, 30 mcg/0.3 mL dose completed [facility], [place] - [facility] 12/13/2020 15:31:14 COVID-19, mRNA, LNP-S, PF, 30 mcg/0.3 mL dose 1 completed [facility] [place] - [place] 12/13/2020 15:31:32 Influenza, split virus, quadrivalent, preservative 6 completed Not Available [facility] 07/03/2019 02:48:30 Influenza, split virus, quadrivalent, preservative 7 completed Not Available [facility] 07/03/2019 02:33:59 Influenza, split virus, quadrivalent, preservative 5 completed Not Available [facility] 07/03/2019 02:43:44 Past Encounters Encounter ID Performer Location Encounter Start Date Encounter Closed Date Diagnosis/Indication Diagnosis SNOMED-CT Code Diagnosis ICD10 Code Diagnosis Note [id number] Lorrie (Adult Med) [address] [place] [address] [id number] 05/05/2014 11:33:37 05/05/2014 12:28:55 Hypertensive disorder 21060888 Gastroesop hageal reflux disease 845737975 Headache 52292466 Anxiety 34103472 [id number] LAURA Callahan (Adult Med) [address] [place] [address] [id number] 0 09/21/2014 09:48:35 09/21/2014 11:14:58 Headache 86564682 Sinusitis 26599221 Serous otitis media 02560695 Hypertensive disorder 69982036 Gastroesop hageal reflux disease 360975705 Anxiety 40028873 [id number] Sabi Andrew (Adult Med) [address] [place] [address] [phone] 0 01/18/2015 09:58:06 01/18/2015 14:11:30 Sinusitis 22145646 Serous otitis media 21184765 Headache 52478057 Hypertensive disorder 37224930 Gastroesop hageal reflux disease 935092886 Anxiety 70415119 Allergic rhinitis 27755397 [id number] Renetta Andrew (Adult Med) [address] [place] [address] [id number] 0 03/16/2015 10:40:07 03/17/2015 16:24:53 Active or passive immunization 582257888 Z23 [facility] 40511095 E78.5 [id number] LAURA Callahan (Adult Med) [address] [place] [address] [id number] 0 05/16/2015 10:33:10 05/16/2015 11:08:50 Acute pharyngitis 424444793 J02.9 Acute sinusitis 59128213 J01.90 Allergic rhinitis 331402 04 J30.9 Anxiety 21190878 F41.9 Gastroesop hageal reflux disease 559707724 K21.9 Headache 02893945 R51 Hyperlipidemia 71860885 E78.5 Hypertensive disorder 38 545624 I10 Serous otitis media 8032 7007 H65.03 [id number] LAURA Callahan (Adult Med) [address] [place] [address] [id number] 0 07/18/2015 10:22:30 07/18/2015 17:31:35 Anxiety 91420630 F41.9 Gastroesop hageal reflux disease 281572261 K21.9 Headache 21533183 R51 Hyperlipidemia 03884056 E78.5 Hypertensive disorder 38 487172 I10 Low back pain 133642685 M54.5 [id number] LAURA Callahan (Adult Med) [address] [place] [address] [id number] 0 10/16/2015 10:08:06 10/16/2015 11:31:31 Acute otitis media 5226163 H66.92 Allergic rhinitis 077371 04 J30.9 Anxiety 84931984 F41.9 Gastroesop hageal reflux disease 750925815 K21.9 Hyperlipidemia 10342779 E78.5 Hypertensive disorder 38 377040 I10 Low back pain 036804379 M54.5 [id number] LAURA Callahan (Adult Med) [address] [place] [address] [id number] 0 12/28/2015 10:58:36 12/28/2015 11:18:58 Acute otitis media 1830318 H66.92 Headache 97482442 R51 Insomnia 046423085 G47.0 0 [id number] LAURA Callahan (Adult Med) [address] [place] [address] [id number] 0 04/04/2016 14:32:04 04/04/2016 15:17:27 Administration of influenza vaccine 11441951 Z23 Low back pain 181318974 M54.5 Headache 88989955 R51 Vitamin D deficiency 347 29466 E55.9 [id number] MD Lorrie Magallon (Adult Med) [address] [place] [address] [id number] 0 07/08/2016 11:49:09 07/08/2016 13:48:47 Vitamin D deficiency 22702425 E55.9 Insomnia 393090951 G47.0 0 Gastroesop hageal reflux disease 995934254 K21.9 Low back pain 854533582 M54.5 Hypertensive disorder 38 998313 I10 Anxiety 10583474 F41.9 Hyperlipidemia 25776515 E78.5 Allergic rhinitis 731354 04 J30.9 Epigastric pain 90515227 R10.13 [id number] LAURA Callahan (Adult Med) [address] [place] [address] [id number] 0 09/03/2016 10:12:48 09/03/2016 10:31:29 Hyperlipidemia 51934155 E78.5 Hypertensive disorder 38 860144 I10 Acute otitis media 72420 03 H66.92 [id number] LAURA Callahan (Adult Med) [address] [place] [address] [id number] 0 12/02/2016 09:45:17 12/03/2016 11:38:54 Anemia 799800475 D64.9 Vitamin D deficiency 347 96297 E55.9 Insomnia 382155773 G47.0 0 Gastroesop hageal reflux disease 716881729 K21.9 Low back pain 988161519 M54.5 Hypertensive disorder 38 388076 I10 Anxiety 96539056 F41.9 Hyperlipidemia 90687601 E78.5 Allergic rhinitis 818287 04 J30.9 [id number] LAURA Callahan (Adult Med) [address] [place] [address] [id number] 0 02/27/2017 13:40:19 02/27/2017 14:44:54 Acute pharyngitis 300843313 J02.9 Anemia 577844427 D64.9 Vitamin D deficiency 347 58684 E55.9 Allergic rhinitis 340573 04 J30.9 Acute sinusitis 54969260 J01.90 Hyperlipidemia 55006407 E78.5 Hypertensive disorder 38 592443 I10 Gastroesop hageal reflux disease 011067572 K21.9 Pain in left knee 501915 7482 86903 M25.562 fell 2 months ago [id number] MICHAEL Olivier (Adult Med) [address] [place] [address] [phone] 0 03/03/2017 13:40:35 03/03/2017 18:05:57 Administration of influenza vaccine 29878954 Z23 [id number] LAURA Callahan (Adult Med) [address] [place] [address] [id number] 0 04/29/2017 09:51:05 04/29/2017 10:37:01 Gastroesophageal reflux disease 366110239 K21.9 Pain in left knee 611274 5328 00123 M25.562 fell 2 months ago Hyperlipidemia 77576909 E78.5 Allergic rhinitis 637951 04 J30.9 Insomnia 989607133 G47.0 0 Headache 25545608 R51 [id number] LAURA Callahan (Adult Med) [address] [place] [address] 81067-824 0 07/30/2017 09:28:34 07/30/2017 10:50:02 Headache 24651643 R51 Epigastric pain 05496983 R10.13 Gastroesop hageal reflux disease 609183172 K21.9 Dysuria 83550235 R30.0 Anemia 140767927 D64.9 Constipation 01963198 K5 9.00 Loss of appetite 9859184 6 R63.0 Vitamin D deficiency 347 94711 E55.9 [id number] LAURA Callahan (Adult Med) [address] [place] [address] [id number] 0 11/13/2018 15:29:56 11/16/2018 09:20:27 Depressive disorder 81779997 F33.8 Vitamin D deficiency 347 06030 E55.9 Insomnia 985489915 G47.0 0 Gastroesop hageal reflux disease 694947397 K21.9 Low back pain 782184018 M54.5 Hyperlipidemia 20802762 E78.5 Health Concerns Section Related Observation LastModified by Organization Detai ls LastModified Time None Recorded Concern Status LastModified by Organization Details LastModified Time None Recorded Advance Directives Directive N: Payers Encounter Date Sequence Insurance Name Policy Number Policy Bird Covered Member ID Bird Member ID Guarantor Name 02/27/2017 1 [place] Patsy A Gross [id number] Patsy Gross 02/27/2017 1 [place] OR MEDIC[place] REPLACEMENT PRIMARY) Patsy Gross [id number] Patsy Gross 03/03/2017 1 [place] Patsy A Gross [id number] Patsy Gross 03/03/2017 1 [place]PLACEMENT [place]) Patsy Gross [id number] Patsy Gross 04/29/2017 1 [place] Patsy A Gross [id number] Patsy Gross 04/29/2017 1 [place]PLACEMENT [place]) Patsy Gross [id number] Patsy Gross 07/30/2017 1 [place] Patsy A Gross [id number] Patsy Gross 07/30/2017 1 [place]PLACEMENT PR[place]) Patsy Gross [id number] Patsy Gross 11/13/2018 1 [place] Patsy A Gross [id number] Patsy Gross 11/13/2018 1 [place]ACEMENT [place]) Patsy Gross [id number] Patsy Gross Notes Date Note Type Note Provider Name and Address Organization Details Recorded Time 02/27/2017 text/html sore throat 1 week Darren Solomon PA-C Attn: Accounting[address] [facility], [place], [address], [place] [facility] 02/27/2017 16:51:59 04/29/2017 text/html she saw ortho fo r her left knee fracture .... no brace yet , Darren Solomon PA-C Attn: Accounting,[address] [facility], [place], [address], [place] [facility] 04/29/2017 14:26:48 07/30/2017 text/html not eating, mood y , naylor when I pee... Darren Solomon PA-C Attn: Accounting,[address] [facility], [place], [address], [facility] 07/30/2017 12:59:05 11/13/2018 text/html she has not seen Dr. Buenrostro in a long time , no longer taking her meds , is cranky , up all night , agitated , uncooperative ... Darren Solomon PA-C Attn: Accounting[address] [facility], [place], [address], [facility] 11/14/2018 18:00:12 OBGyn Episode No OBEpisode recorded.
--- OUTSIDE RECORDS SUMMARY | 2024-09-16 12:23 | XMS_ITS | Referral Summary ---
Author Organization [facility] Address [address] [place] [address] Care Team Providers Care Gas Appliance Mechanic Name Role Phone Anish Goldstein MD Primary Care Provider Zohreh vailable Allergies Active Allergy Reactions Criticality Noted Date Comments Lorazepam Unknown 07/19/2019 Medications sertraline (ZOLOFT) 25 mg tablet Take 50 mg by mouth daily Active losartan (COZAAR) 25 mg tablet Take 25 mg by mouth daily 0 Active montelukast (SINGULAIR) 10 mg tablet Take 10 mg by mouth daily 0 Active meloxicam (MOBIC) 15 mg tablet Take 15 mg by mouth daily 0 Active mirtazapine (REMERON) 15 mg tablet Take 15 mg by mouth nightly [address] (PROTONIX) 40 mg EC tablet Take 40 mg by mouth daily 0 Active docusate sodium (COLACE) 100 mg capsule Take 100 mg by mouth 2 times daily 8 Active sucralfate (CARAFATE) 1 gram tablet Take 1 g by mouth 2 (two) times a day 0 Active traMADol (ULTRAM) 50 mg tablet Take 50 mg by mouth 3 (three) times a day 0 Active ferrous sulfate 325 mg (65 mg of elemental iron) tabletIndicatio ns:Iron Deficiency Anemia Take 65 mg of elemental iron by mouth 2 (two) times a day Active acetaminophen ER (TYLENOL) 650 mg 8 hr tablet Take 650 mg by mouth every 6 (six) hours as needed for pain Active acetaminophen (TYLENOL) 325 mg tablet Take by mouth every 6 (six) hours as needed for pain Active ergocalciferol (VITAMIN D) 50,000 unit capsule Take 50,000 Units by mouth once a week Active Active Problems Problem Noted Date Diagnosed Date Acute maxillary sinusitis 07/19/2019 Anemia 03/31/2018 Protein-energy malnutrition 03/26/2018 Pain and swelling of right lower leg 03/24/2018 S/P PICC central line placement 03/13/2018 Overview (07/19/2019): [facility] VAT RT BASILIC Abdominal pain, generalized 03/04/2018 Acute pyelonephritis 03/04/2018 Bacteremia 03/04/2018 Closed fracture of patella 03/20/2017 Immunizations Immunization Administration Dates Next Due Influenza, Quadrivalent, Spl it, Intramuscular 03/03/2017,04/04/2016,03/16/2015 Influenza, Quadrivalent, Spl it, Preservative Free, Intramuscular 03/07/2018 Social History Tobacco Use Types Packs/Day Years Used Date Smoking Tobacco: Never Smokeless Tobacco: Never Tobacco Cessation:Counseling Given: No Alcohol Use Standard Drinks/Week Comments Never 0 (1 standard drink = 0.6 oz pur e alcohol) AUDIT-C Answer Date Recorded Frequency of Alcohol Consumption Never 07/19/2019 Average Number of Drinks Not on file 020 Frequency of Binge Drinking Not on file 08/2019 Personal Safety Answer Date Recorded Getting School Help Needed Not on file 08/30 Comments Unknown Sex and Gender Information Value Date Recorded Sex Assigned at Not on file Legal Sex Female 3:35 PM CDT Gender Identity Not on file Sexual Orientation Not on file Occupation Industry Job Start Date Job End Date disabled Not on file Not on file Not on file Plan of Treatment Not on file Insurance MEDICARE [place] MEDICARE [facility] Care Teams Gas Appliance Mechanic Relationship Specialty Start Date End Date Anish Goldstein MD PCP - General Emergency Medicine 06/17/19
[2024-09-16] MEDS: PANTOPRAZOLE SODIUM IV 40 MG VIAL IV PUSH ×2 (12:24→20:42)
--- OUTSIDE RECORDS SUMMARY | 2024-09-16 12:24 | XMS_ITS | Clinical Summary ---
Author Organization [facility] Address [address] [place] [address] Care Team Providers Care Sole Tacker Name Role Phone Anish Goldstein MD Primary [...] PICC central line placement 03/13/2018 Overview (07/19/2019): [facility] VAT RT [facility] Abdominal pain, generalized 03/04/2018 Acute pyelonephritis 03/04/2018 Bacteremia 03/04/2018 Closed fracture of patella 03/20/2017 Immunizations Immunization Administration Dates Next Due Influenza, Quadrivalent, Spl it, Intramuscular 03/03/2017,04/04/2016,03/16/2015 Influenza, Quadrivalent, Spl it, Preservative Free, Intramuscular 03/07/2018 Surgical History Surgery Date Site/Laterality Comments INSERT VENA CAVA FILTER STOMACH SURGERY perforated ulcer COLON SURGERY Medical History Medical History Date Comments Developmental delay Depression Anxiety Hypertension DVT (deep venous thrombosis) (HCC) Hyperlipidemia GERD (gastroesophageal reflux disease) PUD (peptic ulcer disease) Social History Tobacco Use Types Packs/Day Years [...] file Not on file Not on file Obstetrics History Plan of Treatment Not on file Insurance MEDICARE [place] MEDICARE [employer] Care Teams Sole Tacker Relationship Specialty Start Date End Date Anish Goldstein MD PCP - General Emergency Medicine 06/17/19
--- OUTSIDE RECORDS SUMMARY | 2024-09-16 12:24 | XMS_ITS | CONTINUITY OF CARE DOCUMENT ---
Author Name angel ortiz Address Unknown Organization [facility] Address [address] [facility] [address] [place] [address] Phone [phone] Care Team Providers Care Brokerage Manager Name Role Phone Dale ANN, Janie Unavailable Janie Hunter MD Unavailable [phone] INSURANCE PROVIDERS Payer name Policy type / Coverage type [place] red green party ID [facility] [facility] Medicaid 1 [id number] [place] MEDIC[place] Medicare [id number]
[2024-09-16] MEDS: SODIUM CHLORIDE 0.9% IV 1,000 ML 999 ML IV CONT (12:25)
[2024-09-16 13:25] LABS: Estimated Glomerular Filt Rate 32
[2024-09-16 14:27] LABS: Hematocrit 27.1 % (37.0-47.0); Hemoglobin 8.3 g/dL (12.0-15.0); Mean Corpuscular HGB Conc 30.6 g/dl (32-36); Mean Corpuscular Hemoglobin 28.8 pg (26-34); Mean Corpuscular Volume 94.1 fl (80-100); Mean Platelet Volume 9.5 fl (7.4-10.4); Platelet Count Result 248 k/mm3 (150-375); Red Blood Count 2.88 M/mm3 (4.2-5.4); Red Cell Distribution Width 15.1 % (11.5-14.5); White Blood Count 15.3 K/mm3 (4.5-10.0)
[2024-09-16 14:40] LABS: INR 1.1; Prothrombin Time 14.4 Seconds (11.1-14.7)
[2024-09-16 14:43] LABS: Band Neutrophils Percent 13 % (0-6); Basophils Percent Manual 0 % (0-1); Eosinophils Percent Manual 0 % (0-4); Lymphocytes Absolute Manual 0.45 K/mm3 (1.1-4.5); Lymphocytes Percent Manual 3 % (18-44); Monocytes Absolute Manual 1.07 K/mm3 (0.1-0.90); Monocytes Percent Manual 7 % (3-9); Neutrophils Absolute Manual 13.77 K/mm3 (1.7-7.2); Neutrophils Percent Manual 77 % (46-73); Total Cells Counted 100
[2024-09-16 14:44] LABS: Anisocytosis 1+; Hypochromasia 1+; Platelet Estimate Adequate (Adequate)
[2024-09-16 14:45] LABS: Ovalocytes 1+
[2024-09-16 14:46] LABS: Schistocytes None Seen
[2024-09-16 14:47] LABS: Alanine Aminotransferase 16 U/L (6-35); Albumin Level 3.2 g/dL (3.5-5.1); Alkaline Phosphatase 112 U/L (38-126); Anion Gap 13 mmol/L (4-12); Aspartate Amino Transferase 26 U/L (14-36); Bilirubin,Total 0.6 mg/dL (0.2-1.3); Blood Urea Nitrogen 32 mg/dL (7-17); Calcium 7.9 mg/dL (8.4-10.2); Carbon Dioxide 14 mmol/L (22-30); Chloride 106 mmol/L (98-107); Estimated Glomerular Filt Rate 38; Glucose 122 mg/dL (65-110); Potassium 4.1 mmol/L (3.4-5.0); Sodium 133 mmol/L (137-145)
[2024-09-16 14:48] LABS: Add Urine Microscopic? YES; Appearance Urine Turbid (Clear); Bacteria Urine 4+ /hpf; Bilirubin Urine 1+ (Negative); Blood Urine 2+ (Negative); Color Urine Dark Yellow (Yellow); Glucose Urine UA Negative (Negative); Ketones Urine Negative (Negative); Leukocyte Esterase Ur 3+ LEU/UL (Negative); Need Manual Microscopic Reviewed; Nitrate Urine Negative (Negative); Protein Urine 2+ mg/dL (Negative); RBC Urine 21-50 /hpf (0-2); Specific Grav Ur 1.022 (1.001-1.035); Squamous Epithelial Cell Urine Many /hpf (Few); WBC Clumps Urine Present /HPF; WBC Urine >100 /hpf (0-3); pH Urine 5.5 (5.0-9.0)
[2024-09-16 15:06] LABS: Influenza A QL RT-PCR Negative (Negative); Influenza B QL RT-PCR Negative (Negative); RSV RNA, RT-PCR Negative (Negative); SARS-CoV-2 RNA PCR Negative (Negative)
--- NOTE | 2024-09-16 15:24 | P.CONGS_ITS ---
Assessment and Plan Assessment and plan (1) Fecal impaction: Code(s): K56.41 - Fecal impaction Status: Acute Assessment and Plan: CT scan reviewed and showed evidence of a bowel obstruction secondary to a large fecal impaction. She has had 2 enemas in the ED and was manually disimpacted by the ED physician. She is having large amounts of diarrhea and initially had a rectal tube placed I recommended removing her rectal tube due to stool ball, and we will give her another fleets enema. She had an NG tube placed in the ED as well. We will also try stimulating her bowels from above with a half bottle of Mag citrate. Her WBC count was 15,000 and lactic acid 2.0. There were no signs of perforation on the CT and no diffuse peritoneal signs on exam. Will continue IV Zosyn for now to cover for possible ischemic colitis in the setting of her leukocytosis. Will closely monitor with serial abdominal exams and repeat labs tomorrow. Will also order plain films tomorrow morning to re-evaluate. Surgical management would be reserved for perforation or bowel ischemia with signs of sepsis or peritonitis. (2) Bowel obstruction: Code(s): K56.609 - Unspecified intestinal obstruction, unspecified as to partial versus complete obstruction Status: Acute Assessment and Plan: Secondary to fecal impaction. Continue enemas, NG tube decompression, bowel rest, and IV fluids. See plan above. (3) Sepsis: Code(s): A41.9 - Sepsis, unspecified organism Status: Acute Assessment and Plan: Patient presented with tachycardia, hypotension, leukocytosis, and tachypnea. Source could be urinary verses possible ischemic colitis. Will start IV Zosyn. Blood cultures ordered in the ER. (4) Acute UTI: Code(s): N39.0 - Urinary tract infection, site not specified Status: Acute Assessment and Plan: Abnormal UA in the setting of a chronic indwelling urinary catheter. Culture pending. Will switch IV antibiotics to IV Zosyn, which will cover for UTI and the bowel. Management per hospitalist. (5) Chronic indwelling White catheter: Code(s): Z97.8 - Presence of other specified devices Status: Acute (6) Chronic anemia: Code(s): D64.9 - Anemia, unspecified Status: Acute (7) Acute renal failure: Code(s): N17.9 - Acute kidney failure, unspecified Status: Acute Assessment and Plan: Creatinine 1.6 on admission, which is up from her last labs about 4 years ago. May be related to dehydration, hypovolemia. Management per Hospitalist. Continue IV fluids and monitor labs. (8) Dementia: Code(s): F03.90 - Unspecified dementia, unspecified severity, without behavioral disturbance, psychotic disturbance, mood disturbance, and anxiety Status: Chronic Plan I have discussed the patient's case and plan of care with Dr. Martinez. Thank you for allowing us to see the patient in consultation and we will continue to follow along with you. History of Present Illness Consult details Consult date: 09/16/24 Reason for consult: other (High-grade bowel obstruction secondary to fecal impaction) Requesting physician: Jed Mckeon MD Narrative: This is a 64-year-old woman with history of dementia, hypertension, hyperlipidemia, coronary artery disease, ulcerative colitis, neurogenic bladder with indwelling White catheter, and several other comorbidities who we have been asked to see in surgical consultation for a high-grade bowel obstruction secondary to a fecal impaction. She is a poor historian and no family at the bedside, therefore history is obtained by review of the EMR. She was brought in from nursing care facility for coffee-ground emesis, diarrhea, and low blood pressure. In the ED, she has stool incontinence of liquid diarrhea. While she was receiving further workup, she had a rectal tube placed. There was nearly 2 L of stool cleaned up by staff. Workup revealed CT evidence of a high-grade bowel obstruction secondary to a fecal impaction with mass effect onto bilateral distal ureters causing hydroureteronephrosis. C diff negative. Labs showed WBC count 15,300, lactic acid 2.0, hemoglobin 8.3 (with previous labs from 2020 showing hemoglobin of 8.2). BUN 32 and creatinine 1.6. Albumin 3.2. UA showed 2+ protein, 1+ bilirubin, 3+ leukocytes, 21-50 rbc's, > 100 wbc's. Urine culture sent. Respiratory panel negative. She had an NG tube placed in the ED as well. She is now seen in surgical consultation. She is unable to provide any additional history. She has a midline abdominal scar but is unable to give me any surgical history. She denies any abdominal pain at this time although was diffusely tender on exam. Review of Systems 2 Review of Systems: ROS unobtainable: Yes unobtainable due to mental status [facility] Past Medical History Medical History Presence of IVC filter Hypertension Neurogenic bladder Deep venous thrombosis Coronary artery disease Poorly documented and patient denies. Anxiety Chronic anemia Arthritis Gastroesophageal reflux disease Ulcerative colitis Hyperlipidemia Dementia Chronic indwelling White catheter Surgical History Surgical History History of colon resection Family History Family History Other Family history unknown Social History Social History Social History: Surrogate decision maker: Amanda Nash, sibling. Code status: Full code. Smoking status: Never smoker Alcohol intake: never Substance use: never Additional living arrangements comments: The patient is a resident at [facility]. Additional occupation/education comments: Disabled. Spiritual care concerns: No Meds Home Medications and Allergies Home Medications ?Medication ?Instructions ?Recorded ?Confirmed ?Type hydroxyzine pamoate 25 mg capsule 25 mg PO BID 03/07/21 03/08/21 History lactulose 10 gram/15 mL oral 10 g PO TID PRN Constipation 03/07/21 03/08/21 History solution losartan 25 mg tablet 25 mg PO DAILY 03/07/21 03/08/21 History mirtazapine 15 mg tablet 15 mg PO HS 03/07/21 03/08/21 History montelukast 10 mg tablet 10 mg PO DAILY 03/07/21 03/08/21 History pantoprazole 40 mg tablet,delayed 40 mg PO DAILY 03/07/21 03/08/21 History release sertraline 50 mg tablet 50 mg PO DAILY 03/07/21 03/08/21 History simvastatin 20 mg tablet 20 mg PO HS 03/07/21 03/08/21 History sucralfate 1 gram tablet 1 g PO BID 03/07/21 03/08/21 History Lactobacillus acidophilus 1 cap PO DAILY 03/08/21 03/08/21 History (Acidophilus capsule) acetaminophen 500 mg capsule 1,000 mg PO Q6H PRN Pain 03/08/21 03/08/21 History ascorbate calcium (vitamin C) 500 500 mg PO BID 03/08/21 03/08/21 History mg tablet cholecalciferol (vitamin D3) 25 4,000 unit PO DAILY 03/08/21 03/08/21 History mcg (1,000 unit) tablet docusate sodium 100 mg capsule 100 mg PO BID 03/08/21 03/08/21 History ergocalciferol (vitamin D2) 25,000 50,000 unit PO WEEKLY 03/08/21 03/08/21 History unit capsule ferrous sulfate 325 mg (65 mg 325 mg PO BID 03/08/21 03/08/21 History iron) tablet (Iron (ferrous sulfate)) multivitamin with minerals (Daily 1 tablet PO DAILY 03/08/21 03/08/21 History Multivitamin-Minerals tablet) ondansetron HCl 4 mg tablet 4 mg PO Q6H PRN Gastric Reflux 03/08/21 03/08/21 History (Zofran) Allergies Allergy/AdvReac Type Severity Reaction Status Date / Time lorazepam Allergy Unknown Verified 03/07/21 14:22 Vital Signs Vital Signs - 24 hr 09/16/24 12:00 09/16/24 13:00 09/16/24 14:30 Pulse Rate 125 H 124 H 129 H Respiratory Rate 22 H 19 22 H Blood Pressure 110/49 L 96/42 L 119/58 L Pulse Oximetry 100 99 100 Exam 2 Const: General: no acute distress and anxious (agitated and combative when trying to examine her or with any turning ) Nutritional Appearance: average body habitus Orientation/consciousness: oriented to person, No oriented to place, No oriented to time and confusion HENMT: Head: normocephalic and atraumatic Ears: hearing grossly normal bilaterally Eyes: General: appearance normal, both eyes and all related structures P upils: Equal, round and reactive pupils present Neck: Neck: normal visual inspection and full ROM Resp: Effort & Inspection: no respiratory distress Auscultation: clear to auscultation bilaterally Cardio: Rate: tachycardic Rhythm: regular rhythm GI: Inspection: distended and scar (midline scar) GI Palp: Yes Soft to palpation, Yes Tenderness to palpation present (GI) (diffuse), No Guarding due to palpation present (GI) and No Rebound tenderness present Auscultation: H ypoactive bowel sounds present Other: When patient was turned for rectal examination, she had a large amount of brown/green liquid stool underneath her extending to her legs and nearly constantly dripping from her anus where there was a rectal tube in place with no output in the tubing but flow coming around the tubing. No obvious mass on visual inspection or digital rectal exam. Unable to reach the stool ball on digital rectal exam. Skin: General skin exam: normal color Neuro: General: moves all extremities and no focal motor deficits Speech: n ormal speech Extrem: General: normal to inspection and no edema Psych: Insight: Limited insight present (Psych) Judgement: Limited judgement present (Psych) Results Labs 09/16/24 14:14 09/16/24 14:14 Labs: Abnormal lab results 09/16/24 09/16/24 Range/Units 13:23 14:14 WBC 15.3 H (4.5-10.0) K/mm3 RBC 2.88 L (4.2-5.4) M/mm3 Hgb 8.3 L (12.0-15.0) g/dL Hct 27.1 L (37.0-47.0) % MCHC 30.6 L (32-36) g/dl RDW 15.1 H (11.5-14.5) % Neutrophils % (Manual) 77 H (46-73) % Band Neutrophils % 13 H (0-6) % Lymphocytes % (Manual) 3 L (18-44) % Abs Neuts (Manual) 13.77 H (1.7-7.2) K/mm3 Abs Lymphs (Manual) 0.45 L (1.1-4.5) K/mm3 Abs Monocytes (Manual) 1.07 H (0.1-0.90) K/mm3 Absolute Eos (Manual) 0.00 L (0.02-0.50) K/mm3 Sodium 133 L (137-145) mmol/L Carbon Dioxide 14 L (22-30) mmol/L Anion Gap 13 H (4-12) mmol/L BUN 32 H D (7-17) mg/dL Creatinine 1.60 H 1.38 H (0.7-1.2) mg/dL Estimated GFR 32 L 38 L (59 - ) Glucose 122 H (65-110) mg/dL Calcium 7.9 L (8.4-10.2) mg/dL Total Protein 6.0 L (6.3-8.2) g/dL Albumin 3.2 L (3.5-5.1) g/dL Urine Appearance Turbid H (Clear) Urine Protein 2+ H (Negative) mg/dL Ur Blood (Man) 2+ H (Negative) Urine Bilirubin 1+ H (Negative) Leukocyte Esterase Rfl 3+ H (Negative) CURLY/UL Urine RBC 21-50 H (0-2) /hpf Urine WBC >100 H (0-3) /hpf Urine WBC Clumps Present H (None) /HPF Ur Squamous Epith Cells Many H (Few) /hpf Diabetes panel 09/16/24 09/16/24 Range/Units 13:23 14:14 Sodium 133 L (137-145) mmol/L Potassium 4.1 (3.4-5.0) mmol/L Chloride 106 (98-107) mmol/L Carbon Dioxide 14 L (22-30) mmol/L BUN 32 H D (7-17) mg/dL Creatinine 1.60 H 1.38 H (0.7-1.2) mg/dL Glucose 122 H (65-110) mg/dL Calcium 7.9 L (8.4-10.2) mg/dL AST 26 (14-36) U/L ALT 16 (6-35) U/L Alkaline Phosphatase 112 (38-126) U/L Total Protein 6.0 L (6.3-8.2) g/dL Albumin 3.2 L (3.5-5.1) g/dL Calcium panel 09/16/24 Range/Units 14:14 Calcium 7.9 L (8.4-10.2) mg/dL Albumin 3.2 L (3.5-5.1) g/dL Pituitary panel 09/16/24 09/16/24 Range/Units 13:23 14:14 Sodium 133 L (137-145) mmol/L Potassium 4.1 (3.4-5.0) mmol/L Chloride 106 (98-107) mmol/L Carbon Dioxide 14 L (22-30) mmol/L BUN 32 H D (7-17) mg/dL Creatinine 1.60 H 1.38 H (0.7-1.2) mg/dL Glucose 122 H (65-110) mg/dL Calcium 7.9 L (8.4-10.2) mg/dL Adrenal panel 09/16/24 09/16/24 Range/Units 13:23 14:14 Sodium 133 L (137-145) mmol/L Potassium 4.1 (3.4-5.0) mmol/L Chloride 106 (98-107) mmol/L Carbon Dioxide 14 L (22-30) mmol/L BUN 32 H D (7-17) mg/dL Creatinine 1.60 H 1.38 H (0.7-1.2) mg/dL Glucose 122 H (65-110) mg/dL Calcium 7.9 L (8.4-10.2) mg/dL Total Bilirubin 0.6 (0.2-1.3) mg/dL AST 26 (14-36) U/L ALT 16 (6-35) U/L Alkaline Phosphatase 112 (38-126) U/L Total Protein 6.0 L (6.3-8.2) g/dL Albumin 3.2 L (3.5-5.1) g/dL All other labs normal. Imaging Additional studies: ITS Impressions Abdomen/Pelvis CT 09/16/24 13:53 IMPRESSION: High-grade bowel obstruction secondary to fecal impaction with mass effect on the distal ureters causing bilateral hydroureteronephrosis. Abdomen X-Ray 09/16/24 14:55 IMPRESSION: 1: NG tube tip in the stomach.
--- NOTE | 2024-09-16 15:44 | PC.NURSE ---
Rectal tube inflated with 30mLs of air and irrigated. The rectal tube is draining appropriately, EDP Dr. Mckeon aware and is OK with placement of rectal tube to protect skin from futher breakdown.
[2024-09-16 15:52] LABS: Toxigenic C. Diff NEGATIVE (NEGATIVE)
[2024-09-16] MEDS: SODIUM CHLORIDE 0.9% IV 1,000 ML 125 ML IV CONT (16:06)
--- NOTE | 2024-09-16 16:15 | ADMGEN ---
This patient, Patsy Hugo, was admitted to IMU Room 209-01. Patient/family oriented to hospital policies and general routines including ID bracelet, bed and alarms, visiting hours, pain management, procedures, bathroom and other care routines, personal items, smoking policy, room service/diet, and visiting hours. Information on how to activate the Rapid Response Team has been discussed. Patient/Family are encouraged to report perceived risks to care and to ask questions if they do not understand what they are told or what they should do.
[2024-09-16] MEDS: PIPERACILLN/TAZ 3.375GM/NS50ML 3.375 GM/50 ML BAG IVPB ×2 (16:54→23:38)
[2024-09-16] MEDS: MAGNESIUM CITRATE 300 ML BTL 150 ML FEED TUBE (16:55)
--- NOTE | 2024-09-16 16:57 | PM.IMHP ---
H&P: HPI History of Present Illness Date/Time: 09/16/24 16:57 Chief Complaint: Coffee Ground Emesis, Diarrhea Narrative: 64 y/o F with PMH of dementia, chronic anemia, DVT, GERD, HLD, HTN, ulcerative colitis, and neurogenic bladder with chronic indwelling White presents here with coffee-ground emesis and diarrhea. The patient presents here from [facility] via EMS for further evaluation of coffee-ground emesis and diarrhea. HPI obtained through chart review, patient report, and ED provider report. Onset of nausea, vomiting, and diarrhea was last night. She had large volumes of liquid stool in the ED, Hemoccult negative. She endorses associated abdominal achiness and fatigue. Denies fever, chills, body aches, chest pain, shortness of breath, dizziness. No further history available, patient poor historian. Initial VS at presentation: HR 125, RR 22, 110/49, and 100% on RA. ED workup showed: WBC 15.3, hemoglobin 8.3 (previously 8.2 in 2020), normal coags, sodium 133, creatinine 1.60 and GFR 32 (previously 1.1 and GFR 50 in 2020), lactic 2.0, calcium 7.9 (corrected to 8.3 due to albumin), UA suggestive of UTI (may be contaminant), C diff negative, viral PCR negative. CT abdomen/pelvis showed a high-grade bowel obstruction secondary to fecal impaction with mass effect on the distal ureters causing bilateral hydroureteronephrosis. Review of Systems Review of Systems: All systems reviewed & are unremarkable except as noted in HPI and below (Limited, poor historian) ON LICENSE OF [facility] Past Medical History Medical History (Updated 09/16/24 @ 19:31 by Dolores Su, EDGAR) Presence of IVC filter Hypertension Neurogenic bladder Deep venous thrombosis Coronary artery disease Poorly documented and patient denies. Anxiety Chronic anemia Arthritis Gastroesophageal reflux disease Ulcerative colitis Hyperlipidemia Dementia Chronic indwelling White catheter Surgical History Surgical History History of colon resection Family History Family History Other Family history unknown Social History Social History Social History: Surrogate decision maker: Amanda Parker, sibling. Code status: Full code. Smoking status: Unknown if ever smoked Alcohol intake: never Substance use: never Do You Feel Safe in your Home?: Yes Lack of Transportation: No Lack of Food: Never True Current Housing: I Do Not Have Housing Concerned About Future Housing: No Difficulty Paying Gas/Electric Bills: No Difficulty Paying for Meds: No Currently Unemployed: No Education: Don't Know Difficulty w/ Childcare or Family Care: No Additional living arrangements comments: The patient is a resident at [facility]. Additional occupation/education comments: Disabled. Spiritual care concerns: No Meds Home Medications and Allergies Home Medications ?Medication ?Instructions ?Recorded ?Confirmed ?Type hydroxyzine pamoate 25 mg capsule 25 mg PO BID 03/07/21 09/16/24 History lactulose 10 gram/15 mL oral 10 g PO TID PRN Constipation 03/07/21 09/16/24 History solution losartan 25 mg tablet 25 mg PO DAILY 03/07/21 09/16/24 History mirtazapine 15 mg tablet 15 mg PO HS 03/07/21 09/16/24 History montelukast 10 mg tablet 10 mg PO DAILY 03/07/21 09/16/24 History pantoprazole 40 mg tablet,delayed 40 mg PO DAILY 03/07/21 09/16/24 History release sertraline 50 mg tablet 50 mg PO DAILY 03/07/21 09/16/24 History simvastatin 20 mg tablet 20 mg PO HS 03/07/21 09/16/24 History sucralfate 1 gram tablet 1 g PO BID 03/07/21 09/16/24 History Lactobacillus acidophilus 1 cap PO DAILY 03/08/21 09/16/24 History (Acidophilus capsule) acetaminophen 500 mg capsule 1,000 mg PO Q6H PRN Pain 03/08/21 09/16/24 History ascorbate calcium (vitamin C) 500 500 mg PO BID 03/08/21 09/16/24 History mg tablet cholecalciferol (vitamin D3) 25 4,000 unit PO DAILY 03/08/21 09/16/24 History mcg (1,000 unit) tablet docusate sodium 100 mg capsule 100 mg PO BID PRN constipation 03/08/21 09/16/24 History ergocalciferol (vitamin D2) 25,000 50,000 unit PO WEEKLY 03/08/21 09/16/24 History unit capsule ferrous sulfate 325 mg (65 mg 325 mg PO BID 03/08/21 09/16/24 History iron) tablet (Iron (ferrous sulfate)) multivitamin with minerals (Daily 1 tablet PO DAILY 03/08/21 09/16/24 History Multivitamin-Minerals tablet) irbesartan 75 mg tablet 75 mg PO DAILY 09/16/24 09/16/24 History potassium chloride 10 mEq 10 meq PO BID 09/16/24 09/16/24 History tablet,extended release Allergies Allergy/AdvReac Type Severity Reaction Status Date / Time lorazepam Allergy Unknown Verified 03/07/21 14:22 Vital Signs Vital Signs - 24 hr 09/16/24 12:00 09/16/24 13:00 09/16/24 14:30 Pulse Rate 125 H 124 H 129 H Respiratory Rate 22 H 19 22 H Blood Pressure 110/49 L 96/42 L 119/58 L Pulse Oximetry 100 99 100 Exam Const: General: comfortable and no acute distress Other: , female, chronically ill-appearing, older than stated age HENMT: Face/Nose/Sinus: Normal nares present Mouth: Yes dry mucous membranes Eyes: General: appearance normal, both eyes and all related structures Sclera: sclerae normal Pupils: Equal, round and reactive pupils present (3-4 mm bilaterally) EOM: EOMs intact bilaterally Resp: Effort & Inspection: normal respiratory effort Auscultation: clear to auscultation bilaterally Cardio: Rate: regular rate Rhythm: regular rhythm Other: S1-S2 present without murmur, rub, ectopy GI: Other: Abdomen diffusely tender, mild. Mild distension, soft. Hypoactive bowel sounds in all quadrants. Skin: General skin exam: normal color and no rashes or lesions noted Other: Large pressure wounds to bilateral buttocks, see photo. Wound bed pink/red, scant serosanguineous drainage, irregular but defined border. Worse on left versus right. Neuro: Speech: normal speech Sensory Exam: normal sensation Other: Moving all extremities, generalized weakness, alert and orientated to self only. Provided wrong year and was unable to provide situational history or place. Extrem: General: normal to inspection Psych: Mental Status: mental status grossly normal Affect: normal affect Other: Poor/limited insight and judgment. H&P: Results Labs Labs: Short CBC 09/16/24 Range/Units 14:14 WBC 15.3 H (4.5-10.0) K/mm3 Hgb 8.3 L (12.0-15.0) g/dL Hct 27.1 L (37.0-47.0) % Plt Count 248 (150-375) k/mm3 BMP 09/16/24 09/16/24 13:23 14:14 Sodium 133 L Potassium 4.1 Chloride 106 Carbon Dioxide 14 L BUN 32 H D Creatinine 1.60 H 1.38 H Glucose 122 H Calcium 7.9 L Liver Function 09/16/24 Range/Units 14:14 Total Bilirubin 0.6 (0.2-1.3) mg/dL AST 26 (14-36) U/L ALT 16 (6-35) U/L Alkaline Phosphatase 112 (38-126) U/L Albumin 3.2 L (3.5-5.1) g/dL Urine 09/16/24 Range/Units 14:14 Urine Color Dark yellow (Yellow) Urine Appearance Turbid H (Clear) Urine pH 5.5 (5.0-9.0) Ur Specific [place] 1.022 (1.001-1.035) Urine Protein 2+ H (Negative) mg/dL Urine Glucose (UA) Negative (Negative) mg/dL Assessment and Plan Assessment and plan (1) Sepsis: Qualifiers: Sepsis type: sepsis due to unspecified organism Sepsis acute organ dysfunction status: with acute organ dysfunction Severe sepsis acute organ dysfunction type: acute renal failure Acute renal failure type: unspecified Severe sepsis shock status: without septic shock Qualified Code(s): A41.9 - Sepsis, unspecified organism; R65.20 - Severe sepsis without septic shock; N17.9 - Acute kidney failure, unspecified Code(s): A41.9 - Sepsis, unspecified organism Status: Acute Assessment and Plan: - meets SIRS criteria: HR, RR, WBC. -hypoxia or hypotension. - lactic acid: 2.0 - check procalcitonin - 30 mL/kg = 1.8, 1L in ED -> 125 mL - suspected source: possible colitis, suspected UTI. Started on Zosyn on 09/16. - blood cultures drawn on 09/16, follow - monitor hemodynamic stability (2) Fecal impaction: Code(s): K56.41 - Fecal impaction Status: Acute Assessment and Plan: - CT abd/pelvis: High-grade bowel obstruction secondary to fecal impaction with mass effect on the distal ureters causing bilateral hydroureteronephrosis. - attempted manual disimpaction in ED not successful, also given 2 enemas without passage of stool ball - C diff negative, stool culture pending - General Surgery consulted, provided the following recs: Stimulation from above -5 citrate ordered No signs of perforation or diffuse peritoneal signs on exam Continue Zosyn to cover for possible ischemic colitis, leukocytosis present Serial abdominal exams and repeat KUB on 09/17 Surgical management reserved for perforation or bowel ischemia with signs of sepsis or peritonitis - will hold on further enemas this evening. Bedside RN spoke with on-call general surgeon, Juan ANN, given profuse diarrhea and existing pressure wounds to buttock, okay to keep fecal management system in place until enema tomorrow morning. (3) Bowel obstruction: Qualifiers: Intestinal obstruction type: fecal impaction Qualified Code(s): K56.41 - Fecal impaction Code(s): K56.609 - Unspecified intestinal obstruction, unspecified as to partial versus complete obstruction Status: Acute Assessment and Plan: - CT showing high-grade bowel obstruction secondary to fecal impaction, see above plan for infection - NG placed for decompression, confirmed on XR - bowel rest - IV fluids (4) Acute renal failure: Qualifiers: Acute renal failure type: unspecified Qualified Code(s): N17.9 - Acute kidney failure, unspecified Code(s): N17.9 - Acute kidney failure, unspecified Status: Acute Assessment and Plan: - creatinine 1.6 and GFR 32, previously 1.1 and GFR 50 in 2020 - suspect injury secondary to hypovolemia due to nausea, vomiting, diarrhea and impaction. Trial IV fluids over the next week per hours, if no improvement consider further workup in nephrology consultation. - trend renal function - trend electrolytes, correct as needed (5) Catheter-associated urinary tract infection: Qualifiers: Indwelling urinary catheter type: indwelling urethral catheter Encounter type: initial encounter Qualified Code(s): T83.511A - Infection and inflammatory reaction due to indwelling urethral catheter, initial encounter; N39.0 - Urinary tract infection, site not specified Code(s): T83.511A - Infection and inflammatory reaction due to indwelling urethral catheter, initial encounter; N39.0 - Urinary tract infection, site not specified Status: Acute Assessment and Plan: - chronic White secondary to neurogenic bladder, exchanged in ED on 09/17 - UA: Turbid, 2+ protein, 2+ blood, 1+ bilirubin, 3+ leuks, 21-50 RBC, greater than 100 WBC, WBC clumps present, many epithelial cells, 4+ bacteria - UC pending, follow - previous micro reviewed, no previous resistances - started on Zosyn on 09/16 for coverage for colitis and UTI (6) Pressure ulcer of buttock: Qualifiers: Pressure injury stage: unstageable Laterality: unspecified laterality Qualified Code(s): L89.300 - Pressure ulcer of unspecified buttock, unstageable Code(s): L89.309 - Pressure ulcer of unspecified buttock, unspecified stage Status: Acute Assessment and Plan: - present to bilateral buttock, left worse than right - wound RN consulted - FMS to remain in place this evening, oozing stool on exam. d/c in AM for enema. (7) Chronic anemia: Code(s): D64.9 - Anemia, unspecified Status: Chronic Assessment and Plan: - Hgb 8.3, at baseline - transfuse if less than 7 - monitor (8) Hypertension: Qualifiers: Hypertension type: primary hypertension Qualified Code(s): I10 - Essential (primary) hypertension Code(s): I10 - Essential (primary) hypertension Status: Chronic Assessment and Plan: - chronic, currently 127/71. Has been intermittently soft since arrival. - hold home medications: Irbesartan - monitor Plan Diet: NPO GI Prophylaxis: Pantoprazole DVT Prophylaxis: SCDs Lines: Peripheral Code Status: Full code Quality VTE Prophylaxis VTE prophylaxis: mechanical ordered Hospitalist MIPS Advance Care Plan I have confirmed that the patient's Advanced Care Plan is present, code status is documented, or surrogate decision maker is listed in patient medical record.: Yes Medication Reconciliation I have utilized all available resources to obtain, update and review the patients current medications (includes all prescriptions, OTC, herbals, cannabis, and nutritional supplements).: Yes
--- NOTE | 2024-09-16 20:34 | WPDGICN ---
Assessment and Plan Assessment and plan (1) Bowel obstruction: Qualifiers: Intestinal obstruction type: fecal impaction Qualified Code(s): K56.41 - Fecal impaction Code(s): K56.609 - Unspecified intestinal obstruction, unspecified as to partial versus complete obstruction Status: Acute Assessment and Plan: The patient is experiencing significant diarrhea following disimpaction, which is likely overflow diarrhea secondary to the prior fecal impaction. The clear nasogastric tube drainage suggests that a complete small bowel obstruction is not currently present. However, the CT scan findings of bilateral hydronephrosis strongly indicate a chronic obstructive process. Given the surgical co-management, we should discuss further diagnostic workup, which may include a small bowel follow-through study administered via the nasogastric tube to better delineate the anatomy and patency of the gastrointestinal tract. (2) Fecal impaction: Code(s): K56.41 - Fecal impaction Status: Acute GI Consult Note Consult date/time: 09/16/24 20:34 Reason for consult: small bowel obstruction HPI: Patsy Hugo is a 64-year-old female with a complex medical history including dementia, coronary artery disease, and hypertension. A shelter resident, she was brought to the emergency room today for dark emesis. Physical examination revealed abdominal distension, and a CT scan demonstrated a high-grade small bowel obstruction secondary to fecal impaction with mass effect on the distal ureters, causing bilateral hydroureteronephrosis. Manual disimpaction was attempted in the emergency room, and enemas were administered. The patient was hospitalized, and a nasogastric tube was placed, which drained a moderate amount of bilious fluid. A fecal collection system was implemented and is currently collecting significant amounts of liquid stool. Her most recent laboratory data includes: white blood cell count 15.3 , hemoglobin 8.3 , platelets 248 x, glucose 122 , sodium 133 , BUN 32, creatinine 1.38 , and albumin 3.2. [facility] Past Medical History Medical History (Updated 09/16/24 @ 19:31 by Dolores Su APRN) Presence of IVC filter Hypertension Neurogenic bladder Deep venous thrombosis Coronary artery disease Poorly documented and patient denies. Anxiety Chronic anemia Arthritis Gastroesophageal reflux disease Ulcerative colitis Hyperlipidemia Dementia Chronic indwelling White catheter Surgical History Surgical History History of colon resection Family History Family History Other Family history unknown Social History Social History Social History: Surrogate decision maker: Amanda Parker, sibling. Code status: Full code. Smoking status: Unknown if ever smoked Alcohol intake: never Substance use: never Do You Feel Safe in your Home?: Yes Lack of Transportation: No Lack of Food: Never True Current Housing: I Do Not Have Housing Concerned About Future Housing: No Difficulty Paying Gas/Electric Bills: No Difficulty Paying for Meds: No Currently Unemployed: No Education: Don't Know Difficulty w/ Childcare or Family Care: No Additional living arrangements comments: The patient is a resident at [facility]. Additional occupation/education comments: Disabled. Spiritual care concerns: No Meds Home Medications and Allergies Home Medications ?Medication ?Instructions ?Recorded ?Confirmed ?Type hydroxyzine pamoate 25 mg capsule 25 mg PO BID 03/07/21 09/16/24 History lactulose 10 gram/15 mL oral 10 g PO TID PRN Constipation 03/07/21 09/16/24 History solution losartan 25 mg tablet 25 mg PO DAILY 03/07/21 09/16/24 History mirtazapine 15 mg tablet 15 mg PO HS 03/07/21 09/16/24 History montelukast 10 mg tablet 10 mg PO DAILY 03/07/21 09/16/24 History pantoprazole 40 mg tablet,delayed 40 mg PO DAILY 03/07/21 09/16/24 History release sertraline 50 mg tablet 50 mg PO DAILY 03/07/21 09/16/24 History simvastatin 20 mg tablet 20 mg PO HS 03/07/21 09/16/24 History sucralfate 1 gram tablet 1 g PO BID 03/07/21 09/16/24 History Lactobacillus acidophilus 1 cap PO DAILY 03/08/21 09/16/24 History (Acidophilus capsule) acetaminophen 500 mg capsule 1,000 mg PO Q6H PRN Pain 03/08/21 09/16/24 History ascorbate calcium (vitamin C) 500 500 mg PO BID 03/08/21 09/16/24 History mg tablet cholecalciferol (vitamin D3) 25 4,000 unit PO DAILY 03/08/21 09/16/24 History mcg (1,000 unit) tablet docusate sodium 100 mg capsule 100 mg PO BID PRN constipation 03/08/21 09/16/24 History ergocalciferol (vitamin D2) 25,000 50,000 unit PO WEEKLY 03/08/21 09/16/24 History unit capsule ferrous sulfate 325 mg (65 mg 325 mg PO BID 03/08/21 09/16/24 History iron) tablet (Iron (ferrous sulfate)) multivitamin with minerals (Daily 1 tablet PO DAILY 03/08/21 09/16/24 History Multivitamin-Minerals tablet) irbesartan 75 mg tablet 75 mg PO DAILY 09/16/24 09/16/24 History potassium chloride 10 mEq 10 meq PO BID 09/16/24 09/16/24 History tablet,extended release Allergies Allergy/AdvReac Type Severity Reaction Status Date / Time lorazepam Allergy Unknown Verified 03/07/21 14:22 Vital Signs Vital Signs - 24 hr 09/16/24 12:00 09/16/24 13:00 09/16/24 14:30 Temperature Pulse Rate 125 H 124 H 129 H Respiratory Rate 22 H 19 22 H Blood Pressure 110/49 L 96/42 L 119/58 L Pulse Oximetry 100 99 100 09/16/24 16:18 09/16/24 18:00 09/16/24 20:00 Temperature 98.1 F 97.4 F L Pulse Rate 90 76 142 H Respiratory Rate 20 20 Blood Pressure 127/71 101/39 L Pulse Oximetry 99 97 Exam Narrative: Slurred speech, oriented x2, cooperative but very poor historian. Abdomen: Bowel sounds very diminished, distended, tympanitic, vertical midline scar. Raw skin in the entire perineal, bilateral buttocks and sacral region. Const: General: comfortable and no acute distress Other: , female, chronically ill-appearing, older than stated age HENMT: Face/Nose/Sinus: Normal nares present Mouth: Yes dry mucous membranes Eyes: General: appearance normal, both eyes and all related structures Sclera: sclerae normal Pupils: Equal, round and reactive pupils present (3-4 mm bilaterally) EOM: EOMs intact bilaterally Resp: Effort & Inspection: normal respiratory effort Auscultation: clear to auscultation bilaterally Cardio: Rate: regular rate Rhythm: regular rhythm Other: S1-S2 present without murmur, rub, ectopy GI: Other: Abdomen diffusely tender, mild. Mild distension, soft. Hypoactive bowel sounds in all quadrants. Skin: General skin exam: normal color and no rashes or lesions noted Other: Large pressure wounds to bilateral buttocks, see photo. Wound bed pink/red, scant serosanguineous drainage, irregular but defined border. Worse on left versus right. Neuro: Speech: normal speech Sensory Exam: normal sensation Other: Moving all extremities, generalized weakness, alert and orientated to self only. Provided wrong year and was unable to provide situational history or place. Extrem: General: normal to inspection Psych: Mental Status: mental status grossly normal Affect: normal affect Other: Poor/limited insight and judgment. Results Labs 09/16/24 14:14 09/16/24 14:14 Labs: Short CBC 09/16/24 Range/Units 14:14 WBC 15.3 H (4.5-10.0) K/mm3 Hgb 8.3 L (12.0-15.0) g/dL Hct 27.1 L (37.0-47.0) % Plt Count 248 (150-375) k/mm3 BMP 09/16/24 09/16/24 13:23 14:14 Sodium 133 L Potassium 4.1 Chloride 106 Carbon Dioxide 14 L BUN 32 H D Creatinine 1.60 H 1.38 H Glucose 122 H Calcium 7.9 L Liver Function 09/16/24 Range/Units 14:14 Total Bilirubin 0.6 (0.2-1.3) mg/dL AST 26 (14-36) U/L ALT 16 (6-35) U/L Alkaline Phosphatase 112 (38-126) U/L Albumin 3.2 L (3.5-5.1) g/dL Urine 09/16/24 Range/Units 14:14 Urine Color Dark yellow (Yellow) Urine Appearance Turbid H (Clear) Urine pH 5.5 (5.0-9.0) Ur Specific [place] 1.022 (1.001-1.035) Urine Protein 2+ H (Negative) mg/dL Urine Glucose (UA) Negative (Negative) mg/dL
[2024-09-16] MEDS: METOPROLOL TARTRATE INJ 5 MG/5 ML VIAL IV PUSH (20:42)
[2024-09-16] MEDS: DOCUSATE SODIUM LIQ 100 MG/10 ML UDC FEED TUBE (20:42)
[2024-09-16] MEDS: ACETAMINOPHEN ELIXIR 325 MG/10.15 ML UDC 650 MG FEED TUBE (20:42)
[2024-09-17] VITALS (18 sets, daily range): BP systolic 86–128; BP diastolic 35–62; PULSE 80–97; RESP 18–22; TEMP 36.4–36.9; O2SAT 97–99; BMI 25.8
[2024-09-17] MEDS: SODIUM CHLORIDE 0.9% IV 1,000 ML 125 ML IV CONT ×2 (00:10→09:17)
[2024-09-17 04:45] LABS: Hematocrit 26.3 % (37.0-47.0); Mean Corpuscular HGB Conc 30.4 g/dl (32-36); Mean Corpuscular Hemoglobin 28.7 pg (26-34); Mean Corpuscular Volume 94.3 fl (80-100); Mean Platelet Volume 9.9 fl (7.4-10.4); Platelet Count Result 219 k/mm3 (150-375); Red Blood Count 2.79 M/mm3 (4.2-5.4); Red Cell Distribution Width 15.3 % (11.5-14.5)
[2024-09-17 04:55] LABS: Alanine Aminotransferase 42 U/L (6-35); Albumin Level 3.3 g/dL (3.5-5.1); Alkaline Phosphatase 156 U/L (38-126); Anion Gap 17 mmol/L (4-12); Aspartate Amino Transferase 51 U/L (14-36); Bilirubin,Total 0.5 mg/dL (0.2-1.3); Blood Urea Nitrogen 31 mg/dL (7-17); Calcium 8.5 mg/dL (8.4-10.2); Carbon Dioxide 11 mmol/L (22-30); Chloride 111 mmol/L (98-107); Estimated Glomerular Filt Rate 34; Glucose 140 mg/dL (65-110); Potassium 2.9 mmol/L (3.4-5.0); Sodium 139 mmol/L (137-145)
[2024-09-17 05:11] LABS: Anisocytosis 1+; Band Neutrophils Percent 6 % (0-6); Lymphocytes Absolute Manual 0.18 K/mm3 (1.1-4.5); Monocytes Absolute Manual 0.09 K/mm3 (0.1-0.90); Monocytes Percent Manual 1 % (3-9); Neutrophils Absolute Manual 8.73 K/mm3 (1.7-7.2); Neutrophils Percent Manual 91 % (46-73); Platelet Estimate Adequate (Adequate); Schistocytes None Seen; Total Cells Counted 100
[2024-09-17] MEDS: PIPERACILLN/TAZ 3.375GM/NS50ML 3.375 GM/50 ML BAG IVPB ×3 (06:05→17:15)
[2024-09-17] MEDS: ACETAMINOPHEN ELIXIR 325 MG/10.15 ML UDC 650 MG FEED TUBE ×2 (06:06→19:08)
[2024-09-17] MEDS: DOCUSATE SODIUM LIQ 100 MG/10 ML UDC FEED TUBE ×2 (08:27→21:26)
[2024-09-17] MEDS: PANTOPRAZOLE SODIUM IV 40 MG VIAL IV PUSH (08:27)
--- NOTE | 2024-09-17 10:48 | PM.IMPN ---
Progress Note: A&P Assessment and Plan (1) Sepsis: Qualifiers: Sepsis type: sepsis due to unspecified organism Sepsis acute organ dysfunction status: with acute organ dysfunction Severe sepsis acute organ dysfunction type: acute renal failure Acute renal failure type: unspecified Severe sepsis shock status: without septic shock Qualified Code(s): A41.9 - Sepsis, unspecified organism; R65.20 - Severe sepsis without septic shock; N17.9 - Acute kidney failure, unspecified Code(s): A41.9 - Sepsis, unspecified organism Status: Acute Assessment and Plan: - meets SIRS criteria: HR, RR, WBC. -hypoxia or hypotension. - lactic acid: 2.0 - check procalcitonin - 30 mL/kg = 1.8, 1L in ED -> 125 mL - suspected source: possible colitis, suspected UTI. Started on Zosyn on 09/16. - blood cultures drawn on 09/16, follow - monitor hemodynamic stability (2) Fecal impaction: Code(s): K56.41 - Fecal impaction Status: Acute Assessment and Plan: - CT abd/pelvis: High-grade bowel obstruction secondary to fecal impaction with mass effect on the distal ureters causing bilateral hydroureteronephrosis. - attempted manual disimpaction in ED not successful, also given 2 enemas without passage of stool ball - C diff negative, stool culture pending - General Surgery consulted, provided the following recs: Stimulation from above -5 citrate ordered No signs of perforation or diffuse peritoneal signs on exam Continue Zosyn to cover for possible ischemic colitis, leukocytosis present Serial abdominal exams and repeat KUB on 09/17 Surgical management reserved for perforation or bowel ischemia with signs of sepsis or peritonitis - will hold on further enemas this evening. Bedside RN spoke with on-call general surgeon, Juan ANN, given profuse diarrhea and existing pressure wounds to buttock, okay to keep fecal management system in place until enema tomorrow morning. (3) Bowel obstruction: Qualifiers: Intestinal obstruction type: fecal impaction Qualified Code(s): K56.41 - Fecal impaction Code(s): K56.609 - Unspecified intestinal obstruction, unspecified as to partial versus complete obstruction Status: Acute Assessment and Plan: - CT showing high-grade bowel obstruction secondary to fecal impaction, see above plan for infection - NG placed for decompression, confirmed on XR - bowel rest - IV fluids (4) Acute renal failure: Qualifiers: Acute renal failure type: unspecified Qualified Code(s): N17.9 - Acute kidney failure, unspecified Code(s): N17.9 - Acute kidney failure, unspecified Status: Acute Assessment and Plan: - creatinine 1.6 and GFR 32, previously 1.1 and GFR 50 in 2020 - suspect injury secondary to hypovolemia due to nausea, vomiting, diarrhea and impaction. Trial IV fluids over the next week per hours, if no improvement consider further workup in nephrology consultation. - trend renal function - trend electrolytes, correct as needed (5) Catheter-associated urinary tract infection: Qualifiers: Encounter type: initial encounter Indwelling urinary catheter type: indwelling urethral catheter Qualified Code(s): T83.511A - Infection and inflammatory reaction due to indwelling urethral catheter, initial encounter; N39.0 - Urinary tract infection, site not specified Code(s): T83.511A - Infection and inflammatory reaction due to indwelling urethral catheter, initial encounter; N39.0 - Urinary tract infection, site not specified Status: Acute Assessment and Plan: - chronic White secondary to neurogenic bladder, exchanged in ED on 09/17 - UA: Turbid, 2+ protein, 2+ blood, 1+ bilirubin, 3+ leuks, 21-50 RBC, greater than 100 WBC, WBC clumps present, many epithelial cells, 4+ bacteria - UC pending, follow - previous micro reviewed, no previous resistances - started on Zosyn on 09/16 for coverage for colitis and UTI (6) Pressure ulcer of buttock: Qualifiers: Pressure injury stage: unstageable Laterality: unspecified laterality Qualified Code(s): L89.300 - Pressure ulcer of unspecified buttock, unstageable Code(s): L89.309 - Pressure ulcer of unspecified buttock, unspecified stage Status: Acute Assessment and Plan: - present to bilateral buttock, left worse than right - wound RN consulted - FMS to remain in place this evening, oozing stool on exam. d/c in AM for enema. (7) Chronic anemia: Code(s): D64.9 - Anemia, unspecified Status: Chronic Assessment and Plan: - Hgb 8.3, at baseline - transfuse if less than 7 - monitor (8) Hypertension: Qualifiers: Hypertension type: primary hypertension Qualified Code(s): I10 - Essential (primary) hypertension Code(s): I10 - Essential (primary) hypertension Status: Chronic Assessment and Plan: - chronic, currently 127/71. Has been intermittently soft since arrival. - hold home medications: Irbesartan - monitor Plan 64 y/o F with PMH of dementia, chronic anemia, DVT, GERD, HLD, HTN, ulcerative colitis, and neurogenic bladder with chronic indwelling White presents here with coffee-ground emesis and diarrhea. The patient presents here from [facility] via EMS for further evaluation of coffee-ground emesis and diarrhea. Onset of nausea, vomiting, and diarrhea was last night. She had large volumes of liquid stool in the ED, Hemoccult negative. She endorses associated abdominal achiness and fatigue. Denies fever, chills, body aches, chest pain, shortness of breath, dizziness. No further history available, patient poor historian. Initial VS at presentation: HR 125, RR 22, 110/49, and 100% on RA. ED workup showed: WBC 15.3, hemoglobin 8.3 (previously 8.2 in 202), normal coags, sodium 133, creatinine 1.60 and GFR 32 (previously 1.1 and GFR 50 in 202), lactic 2.0, calcium 7.9 (corrected to 8.3 due to albumin), UA suggestive of UTI (may be contaminant), C diff negative, viral PCR negative. CT abdomen/pelvis showed a high-grade bowel obstruction secondary to fecal impaction with mass effect on the distal ureters causing bilateral hydroureteronephrosis. NG tube has been placed. General surgery has been noted fecal impaction rectum status post manual disimpaction in the ED followed by suds enema. Now having diarrhea. Diarrhea stercoral colitis. IV Zosyn medically Metabolic acidosis worsened anion gap will switch to sodium bicarb drip hypokalemia replace bilateral hydronephrosis due to mass effect on distal ureter by fecal impaction. Recheck ultrasound to re-evaluate this UTI on Zosyn follow urine culture Chronic White catheter Neurogenic bladder History of ulcerative colitis GERD Hypertension Hyperlipidemia History of DVT Chronic anemia Dementia Diet: NPO GI Prophylaxis: Pantoprazole DVT Prophylaxis: SCDs Lines: Peripheral Code Status: Full code Subjective Date/time seen: 09/17/24 10:48 Interval history: Chart reviewed. Discussed with nursing staff. Patient having loose stool Review of Systems Review of Systems: All systems reviewed & are unremarkable except as noted in HPI and below (Limited, poor historian) Exam Narrative: APPEARANCE: Cachectic and contracted not in acute distress HEAD: normocephalic, atraumatic. EYES: PERRLA/EOMI, conjunctivae clear. NOSE: Normal no drainage NECK: Supple. No adenopathy, no masses. RESPIRATORY: Airway patent, respirations nonlabored. Clear to auscultation bilaterally, no rales, rhonchi, wheezing. CARDIOVASCULAR: Regular rate and rhythm without murmurs rubs or gallops. ABDOMINAL: Distended abdomen non tender bowel sounds normoactive MUSCULOSKELETAL: Moves all extremities. Strength/ROM intact, No edema, No calf tenderness. NEURO: Alert. Cranial nerves II through XII intact. SKIN: Warm, dry. Normal Color Objective Data Vital Signs Vital Signs: Vital Signs - 24 hr 09/16/24 12:00 09/16/24 13:00 09/16/24 14:30 Temperature Pulse Rate 125 H 124 H 129 H Respiratory Rate 22 H 19 22 H Blood Pressure 110/49 L 96/42 L 119/58 L Pulse Oximetry 100 99 100 Oxygen Delivery 09/16/24 16:18 09/16/24 18:00 09/16/24 20:00 Temperature 98.1 F 97.4 F L Pulse Rate 90 76 142 H Respiratory Rate 20 20 Blood Pressure 127/71 101/39 L Pulse Oximetry 99 97 Oxygen Delivery 09/16/24 20:00 09/16/24 20:00 09/16/24 20:42 Temperature Pulse Rate 142 H 143 H Respiratory Rate Blood Pressure Pulse Oximetry Oxygen Delivery Room Air 09/16/24 22:00 09/16/24 23:31 09/17/24 00:00 Temperature 97.7 F Pulse Rate 100 85 Respiratory Rate 20 Blood Pressure 107/45 L Pulse Oximetry 100 Oxygen Delivery Room Air 09/17/24 00:00 09/17/24 02:00 09/17/24 04:00 Temperature Pulse Rate 83 87 Respiratory Rate Blood Pressure Pulse Oximetry Oxygen Delivery Room Air 09/17/24 04:00 09/17/24 04:00 09/17/24 06:00 Temperature 97.7 F Pulse Rate 97 90 93 Respiratory Rate 20 Blood Pressure 106/35 L Pulse Oximetry 97 Oxygen Delivery 09/17/24 08:00 09/17/24 08:00 09/17/24 08:45 Temperature 97.5 F L Pulse Rate 88 Respiratory Rate 18 Blood Pressure 117/42 L Pulse Oximetry 97 97 98 Oxygen Delivery Room Air Room Air 09/17/24 09:23 Temperature Pulse Rate Respiratory Rate Blood Pressure Pulse Oximetry 97 Oxygen Delivery Room Air Intake/Output Intake/Output: Intake & Output 09/14/24 09/15/24 09/16/24 09/17/24 23:59 23:59 23:59 23:59 Intake Total 1000 2100 Output Total 202 602 Balance 798 1498 Meds/Results Medications: Active Medications Generic Name Dose Route Start Last Admin Trade Name Freq PRN Reason Stop Dose Admin Acetaminophen 650 mg 09/16/24 17:01 09/17/24 06:06 Acetaminophen Elixir 325 Mg/10.15 Ml Udc FEED TUBE 650 mg Q6H PRN Administration Mild Pain (1-3) or Fever Docusate Sodium 100 mg 09/16/24 21:00 09/17/24 08:27 Docusate Sodium Liq 100 Mg/10 Ml Udc FEED TUBE 100 mg Q12HR SONIA Administration Piperacillin/Tazobactam/Dextrose 3.375 gm in 50 mls @ 100 mls/hr 09/16/24 23:00 09/17/24 06:35 Zosyn 3.375 Gm/Ns 50 Ml IVPB Infused Q6HR SONIA Infusion Sodium Bicarbonate 150 meq/ 1,100 mls @ 125 mls/hr 09/17/24 10:50 Dextrose IV CONT .Q8H48M SONIA Potassium Chloride 40 meq/ 520 mls @ 130 mls/hr 09/17/24 10:48 Sodium Chloride IVPB 09/17/24 14:47 ONCE ONE Pantoprazole Sodium 40 mg 09/16/24 21:00 09/17/24 08:27 Pantoprazole Sodium Iv 40 Mg Vial IV PUSH 40 mg Q12HR SONIA Administration Sodium Bicarbonate 50 meq 09/17/24 10:47 Sodium Bicarbonate 8.4% 50 Meq/50 Ml Syringe IV PUSH 09/17/24 10:48 ONCE STA Radiology Results: ITS Impressions Abdomen/Pelvis CT 09/16/24 13:53 IMPRESSION: High-grade bowel obstruction secondary to fecal impaction with mass effect on the distal ureters causing bilateral hydroureteronephrosis. Abdomen X-Ray 09/17/24 08:28 Impression: 1: Moderate colonic and rectal fecal loading. Labs Labs: Laboratory Results - last 24 hr 09/16/24 09/16/24 09/17/24 13:23 14:14 04:05 WBC 15.3 H 9.0 RBC 2.88 L 2.79 L Hgb 8.3 L 8.0 L Hct 27.1 L 26.3 L MCV 94.1 94.3 MCH 28.8 28.7 MCHC 30.6 L 30.4 L RDW 15.1 H 15.3 H Plt Count 248 219 MPV 9.5 9.9 Immature Gran % (Auto) Not Reportable Not Reportable Neut % (Auto) Not Reportable Not Reportable Lymph % (Auto) Not Reportable Not Reportable [place] % (Auto) Not Reportable Not Reportable Eos % (Auto) Not Reportable Not Reportable Baso % (Auto) Not Reportable Not Reportable Lymph # (Auto) Not Reportable Not Reportable [place] # (Auto) Not Reportable Not Reportable Eos # (Auto) Not Reportable Not Reportable Baso # (Auto) Not Reportable Not Reportable Abs Immat Gran (auto) Not Reportable Not Reportable Absolute Neuts (auto) Not Reportable Not Reportable Absolute Nucleated RBC Not Reportable Not Reportable Total Counted 100 100 Neutrophils % (Manual) 77 H 91 H Band Neutrophils % 13 H 6 Lymphocytes % (Manual) 3 L 2.0 L Monocytes % (Manual) 7 1 L Eosinophils % (Manual) 0 Basophils % (Manual) 0 Nucleated RBC % Not Reportable Not Reportable Abs Neuts (Manual) 13.77 H 8.73 H Abs Lymphs (Manual) 0.45 L 0.18 L Abs Monocytes (Manual) 1.07 H 0.09 L Absolute Eos (Manual) 0.00 L Abs Basophils (Manual) 0.00 Platelet Estimate Adequate Adequate Hypochromasia 1+ Anisocytosis 1+ 1+ Ovalocytes 1+ Schistocytes None seen None seen PT 14.4 INR 1.1 APTT 31.0 Sodium 133 L 139 Potassium 4.1 2.9 L Chloride 106 111 H Carbon Dioxide 14 L 11 L Anion Gap 13 H 17 H BUN 32 H D 31 H Creatinine 1.60 H 1.38 H 1.52 H Estim Creat Clear Calc Not Reportable Not Reportable Not Reportable Estimated GFR 32 L 38 L 34 L Glucose 122 H 140 H Lactic Acid 2.0 Calcium 7.9 L 8.5 Total Bilirubin 0.6 0.5 AST 26 51 H ALT 16 42 H Alkaline Phosphatase 112 156 H Total Protein 6.0 L 6.0 L Albumin 3.2 L 3.3 L Urine Color Dark yellow Urine Appearance Turbid H Urine pH 5.5 Ur Specific [place] 1.022 Urine Protein 2+ H Urine Glucose (UA) Negative Urine Ketones Negative Ur Blood (Man) 2+ H Urine Nitrate Negative Urine Bilirubin 1+ H Urine Urobilinogen 1.0 Add Ur Microanalysis Reviewed Leukocyte Esterase Rfl 3+ H Urine RBC 21-50 H Urine WBC >100 H Urine WBC Clumps Present H Ur Squamous Epith Cells Many H Urine Bacteria 4+ Urine Casts 11-20 C. difficile (PCR) Negative Influenza A (RT-PCR) Negative Influenza B (RT-PCR) Negative RSV (RT-PCR) Negative SARS-CoV-2 RNA (RT-PCR) Negative Blood Type O Positive Antibody Screen Negative
--- NOTE | 2024-09-17 11:11 | PC.NURSE ---
On 09/17/24, the student, [Savage Roth], provided care and completed [facility] documentation on this patient. I have reviewed the student's documentation and agree with the findings.
[2024-09-17] MEDS: SODIUM BICARBONATE 8.4% 50 MEQ/50 ML SYRINGE IV PUSH (11:15)
[2024-09-17] MEDS: POTASSIUM CHLORIDE INJ 40 MEQ in SODIUM CHLORIDE 0.9% IV 500 ML 130 MEQ IVPB ×2 (11:15→21:26)
[2024-09-17 11:39] LABS: Lactic Acid Reflex 0.8 mmol/L (0.7-2.0)
[2024-09-17] MEDS: SODIUM BICARBONATE 8.4% 150 MEQ in DEXTROSE 5% 1,000 ML 950 ML 125 MEQ IV CONT ×2 (11:39→21:22)
--- NOTE | 2024-09-17 15:02 | WPDGIPROGNO ---
Progress Note: A&P Assessment and Plan (1) Fecal impaction: Code(s): K56.41 - Fecal impaction Status: Acute Assessment and Plan: The patient presents with diarrhea in the setting of clinical and CT evidence of fecal impaction, most likely representing overflow diarrhea. This is occurring in a bedridden patient with severe pressure ulcers. Surgical consultation was obtained with the on-call surgeon, who does not recommend diverting colostomy at this time, given the patient's immobility and the limited anticipated benefit for pressure ulcer healing. Given the existing nasogastric tube, a gentle laxative regimen will be considered to promote stool evacuation. Underlying diffuse small and large bowel dysmotility is suspected. Subjective Date/time seen: 09/17/24 15:02 Interval history: Patient continuing to pass stools although more consistent than yesterday. Exam Narrative: APPEARANCE: Cachectic and contracted not in acute distress HEAD: normocephalic, atraumatic. EYES: PERRLA/EOMI, conjunctivae clear. NOSE: Normal no drainage NECK: Supple. No adenopathy, no masses. RESPIRATORY: Airway patent, respirations nonlabored. Clear to auscultation bilaterally, no rales, rhonchi, wheezing. CARDIOVASCULAR: Regular rate and rhythm without murmurs rubs or gallops. ABDOMINAL: Distended abdomen non tender bowel sounds normoactive MUSCULOSKELETAL: Moves all extremities. Strength/ROM intact, No edema, No calf tenderness. NEURO: Alert. Cranial nerves II through XII intact. SKIN: Warm, dry. Normal Color Objective Data Vital Signs Vital Signs: Vital Signs - 24 hr 09/16/24 16:18 09/16/24 18:00 09/16/24 20:00 Temperature 98.1 F 97.4 F L Pulse Rate 90 76 142 H Respiratory Rate 20 20 Blood Pressure 127/71 101/39 L Pulse Oximetry 99 97 Oxygen Delivery 09/16/24 20:00 09/16/24 20:00 09/16/24 20:42 Temperature Pulse Rate 142 H 143 H Respiratory Rate Blood Pressure Pulse Oximetry Oxygen Delivery Room Air 09/16/24 22:00 09/16/24 23:31 09/17/24 00:00 Temperature 97.7 F Pulse Rate 100 85 Respiratory Rate 20 Blood Pressure 107/45 L Pulse Oximetry 100 Oxygen Delivery Room Air 09/17/24 00:00 09/17/24 02:00 09/17/24 04:00 Temperature Pulse Rate 83 87 Respiratory Rate Blood Pressure Pulse Oximetry Oxygen Delivery Room Air 09/17/24 04:00 09/17/24 04:00 09/17/24 06:00 Temperature 97.7 F Pulse Rate 97 90 93 Respiratory Rate 20 Blood Pressure 106/35 L Pulse Oximetry 97 Oxygen Delivery 09/17/24 08:00 09/17/24 08:00 09/17/24 08:00 Temperature 97.5 F L Pulse Rate 88 87 Respiratory Rate 18 Blood Pressure 117/42 L Pulse Oximetry 97 97 Oxygen Delivery Room Air 09/17/24 08:45 09/17/24 09:23 09/17/24 10:00 Temperature Pulse Rate 88 Respiratory Rate Blood Pressure Pulse Oximetry 98 97 Oxygen Delivery Room Air Room Air 09/17/24 12:00 09/17/24 12:00 Temperature 98.5 F Pulse Rate 95 95 Respiratory Rate 18 Blood Pressure 128/52 L Pulse Oximetry 98 Oxygen Delivery Intake/Output Intake/Output: Intake & Output 09/14/24 09/15/24 09/16/24 09/17/24 23:59 23:59 23:59 23:59 Intake Total 1000 2100 Output Total 202 602 Balance 798 1498 Meds/Results Medications: Active Medications Generic Name Dose Route Start Last Admin Trade Name Freq PRN Reason Stop Dose Admin Acetaminophen 650 mg 09/16/24 17:01 09/17/24 06:06 Acetaminophen Elixir 325 Mg/10.15 Ml Udc FEED TUBE 650 mg Q6H PRN Administration Mild Pain (1-3) or Fever Docusate Sodium 100 mg 09/16/24 21:00 09/17/24 08:27 Docusate Sodium Liq 100 Mg/10 Ml Udc FEED TUBE 100 mg Q12HR SONIA Administration Piperacillin/Tazobactam/Dextrose 3.375 gm in 50 mls @ 100 mls/hr 09/16/24 23:00 09/17/24 11:47 Zosyn 3.375 Gm/Ns 50 Ml IVPB 100 mls/hr Q6HR SONIA Administration Sodium Bicarbonate 150 meq/ 1,100 mls @ 125 mls/hr 09/17/24 10:50 09/17/24 11:39 Dextrose IV CONT 125 mls/hr .Q8H48M SONIA Administration Potassium Chloride 40 meq/ 520 mls @ 130 mls/hr 09/17/24 10:48 09/17/24 11:15 Sodium Chloride IVPB 09/17/24 14:47 130 mls/hr ONCE ONE Administration Pantoprazole Sodium 40 mg 09/16/24 21:00 09/17/24 08:27 Pantoprazole Sodium Iv 40 Mg Vial IV PUSH 40 mg Q12HR SONIA Administration Radiology Results: ITS Impressions Abdomen/Pelvis CT 09/16/24 13:53 IMPRESSION: High-grade bowel obstruction secondary to fecal impaction with mass effect on the distal ureters causing bilateral hydroureteronephrosis. Abdomen X-Ray 09/17/24 08:28 Impression: 1: Moderate colonic and rectal fecal loading. Labs Labs: Laboratory Results - last 24 hr 09/16/24 09/17/24 09/17/24 14:14 04:05 11:17 WBC 9.0 RBC 2.79 L Hgb 8.0 L Hct 26.3 L MCV 94.3 MCH 28.7 MCHC 30.4 L RDW 15.3 H Plt Count 219 MPV 9.9 Immature Gran % (Auto) Not Reportable Neut % (Auto) Not Reportable Lymph % (Auto) Not Reportable [place] % (Auto) Not Reportable Eos % (Auto) Not Reportable Baso % (Auto) Not Reportable Lymph # (Auto) Not Reportable [place] # (Auto) Not Reportable Eos # (Auto) Not Reportable Baso # (Auto) Not Reportable Abs Immat Gran (auto) Not Reportable Absolute Neuts (auto) Not Reportable Absolute Nucleated RBC Not Reportable Total Counted 100 Neutrophils % (Manual) 91 H Band Neutrophils % 6 Lymphocytes % (Manual) 2.0 L Monocytes % (Manual) 1 L Nucleated RBC % Not Reportable Abs Neuts (Manual) 8.73 H Abs Lymphs (Manual) 0.18 L Abs Monocytes (Manual) 0.09 L Platelet Estimate Adequate Anisocytosis 1+ Schistocytes None seen Sodium 139 Potassium 2.9 L Chloride 111 H Carbon Dioxide 11 L Anion Gap 17 H BUN 31 H Creatinine 1.52 H Estim Creat Clear Calc Not Reportable Estimated GFR 34 L Glucose 140 H Lactic Acid 0.8 Calcium 8.5 Total Bilirubin 0.5 AST 51 H ALT 42 H Alkaline Phosphatase 156 H Total Protein 6.0 L Albumin 3.3 L C. difficile (PCR) Negative Influenza A (RT-PCR) Negative Influenza B (RT-PCR) Negative RSV (RT-PCR) Negative SARS-CoV-2 RNA (RT-PCR) Negative Blood Type O Positive Antibody Screen Negative
--- NOTE | 2024-09-17 15:17 | P.PN_ITS ---
Progress Note: A&P Assessment and Plan (1) Fecal impaction: Code(s): K56.41 - Fecal impaction Status: Acute Assessment and Plan: Fecal impaction resulting in a colonic obstruction this seems to be resolving with administration of multiple enemas and laxatives per her NG tube. She started having copious amounts of diarrhea which hopefully will allow her to pass enough stool and relieve the colonic obstruction. X-ray this morning shows markedly reduced stool burden in the rectum. At this point I would continue use of laxatives and frequent changes of her diapers. I would not place a rectal tube for right now as it seems to impede passage of any solid stool to she may have. She does not ambulate at all. Her wounds will likely worsen on her buttock and posterior thigh regions and she may benefit from having diverting colostomy. Would need to discuss that with a family member she has and with the patient if she is competent at all to help in her own decision making. Can go ahead remove the NG tube and give her a diet for now. Subjective Date/time seen: 09/17/24 15:17 Interval history: Patient is awake today. She seems to answer questions appropriately. She is very hard of hearing. She continues to have stools mostly diarrhea. She was given a bottle of magnesium citrate through her NG tube today and she had a Fleet's enema. X-ray of her abdomen this morning showed much reduced 2 burden and no evidence of large bowel obstruction. NG tube output is minimal. Patient was seen by wound care nurses today and she has bilateral posterior thigh and buttock excoriation wounds due to likely the diarrhea and stooling. She is essentially bedridden. Has contractures or lower extremities. 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 I asked her if she gets out of bed at the [facility] and she states that she does not. She refused to be moved by a Jason lift. Exam GI: Other: Her abdomen is soft and nondistended whatsoever. Midline scar noted without evidence of incisional hernia. No tenderness to palpation. Skin: Other: Excoriated skin on the bilateral lower buttock and upper thigh regions in the perianal region. Wounds are blanchable and there is no necrotic tissue noted. Objective Data Vital Signs Vital Signs: Vital Signs - 24 hr 09/16/24 16:18 09/16/24 18:00 09/16/24 20:00 Temperature 36.7 C 36.3 C L Pulse Rate 90 76 142 H Respiratory Rate 20 20 Blood Pressure 127/71 101/39 L Pulse Oximetry 99 97 Oxygen Delivery 09/16/24 20:00 09/16/24 20:00 09/16/24 20:42 Temperature Pulse Rate 142 H 143 H Respiratory Rate Blood Pressure Pulse Oximetry Oxygen Delivery Room Air 09/16/24 22:00 09/16/24 23:31 09/17/24 00:00 Temperature 36.5 C Pulse Rate 100 85 Respiratory Rate 20 Blood Pressure 107/45 L Pulse Oximetry 100 Oxygen Delivery Room Air 09/17/24 00:00 09/17/24 02:00 09/17/24 04:00 Temperature Pulse Rate 83 87 Respiratory Rate Blood Pressure Pulse Oximetry Oxygen Delivery Room Air 09/17/24 04:00 09/17/24 04:00 09/17/24 06:00 Temperature 36.5 C Pulse Rate 97 90 93 Respiratory Rate 20 Blood Pressure 106/35 L Pulse Oximetry 97 Oxygen Delivery 09/17/24 08:00 09/17/24 08:00 09/17/24 08:00 Temperature 36.4 C L Pulse Rate 88 87 Respiratory Rate 18 Blood Pressure 117/42 L Pulse Oximetry 97 97 Oxygen Delivery Room Air 09/17/24 08:45 09/17/24 09:23 09/17/24 10:00 Temperature Pulse Rate 88 Respiratory Rate Blood Pressure Pulse Oximetry 98 97 Oxygen Delivery Room Air Room Air 09/17/24 12:00 09/17/24 12:00 Temperature 36.9 C Pulse Rate 95 95 Respiratory Rate 18 Blood Pressure 128/52 L Pulse Oximetry 98 Oxygen Delivery Intake/Output Intake/Output: Intake & Output 09/14/24 09/15/24 09/16/24 09/17/24 23:59 23:59 23:59 23:59 Intake Total 1000 2100 Output Total 202 602 Balance 798 1498 Meds/Results Medications: Active Medications Generic Name Dose Route Start Last Admin Trade Name Freq PRN Reason Stop Dose Admin Acetaminophen 650 mg 09/16/24 17:01 09/17/24 06:06 Acetaminophen Elixir 325 Mg/10.15 Ml Udc FEED TUBE 650 mg Q6H PRN Administration Mild Pain (1-3) or Fever Docusate Sodium 100 mg 09/16/24 21:00 09/17/24 08:27 Docusate Sodium Liq 100 Mg/10 Ml Udc FEED TUBE 100 mg Q12HR SONIA Administration Piperacillin/Tazobactam/Dextrose 3.375 gm in 50 mls @ 100 mls/hr 09/16/24 23:00 09/17/24 11:47 Zosyn 3.375 Gm/Ns 50 Ml IVPB 100 mls/hr Q6HR SONIA Administration Sodium Bicarbonate 150 meq/ 1,100 mls @ 125 mls/hr 09/17/24 10:50 09/17/24 11:39 Dextrose IV CONT 125 mls/hr .Q8H48M SONIA Administration Radiology Results: ITS Impressions Abdomen/Pelvis CT 09/16/24 13:53 IMPRESSION: High-grade bowel obstruction secondary to fecal impaction with mass effect on the distal ureters causing bilateral hydroureteronephrosis. Abdomen X-Ray 09/17/24 08:28 Impression: 1: Moderate colonic and rectal fecal loading. Labs Labs: Laboratory Results - last 24 hr 09/16/24 09/17/24 09/17/24 14:14 04:05 11:17 WBC 9.0 RBC 2.79 L Hgb 8.0 L Hct 26.3 L MCV 94.3 MCH 28.7 MCHC 30.4 L RDW 15.3 H Plt Count 219 MPV 9.9 Immature Gran % (Auto) Not Reportable Neut % (Auto) Not Reportable Lymph % (Auto) Not Reportable [place]haw % (Auto) Not Reportable Eos % (Auto) Not Reportable Baso % (Auto) Not Reportable Lymph # (Auto) Not Reportable [place] # (Auto) Not Reportable Eos # (Auto) Not Reportable Baso # (Auto) Not Reportable Abs Immat Gran (auto) Not Reportable Absolute Neuts (auto) Not Reportable Absolute Nucleated RBC Not Reportable Total Counted 100 Neutrophils % (Manual) 91 H Band Neutrophils % 6 Lymphocytes % (Manual) 2.0 L Monocytes % (Manual) 1 L Nucleated RBC % Not Reportable Abs Neuts (Manual) 8.73 H Abs Lymphs (Manual) 0.18 L Abs Monocytes (Manual) 0.09 L Platelet Estimate Adequate Anisocytosis 1+ Schistocytes None seen Sodium 139 Potassium 2.9 L Chloride 111 H Carbon Dioxide 11 L Anion Gap 17 H BUN 31 H Creatinine 1.52 H Estim Creat Clear Calc Not Reportable Estimated GFR 34 L Glucose 140 H Lactic Acid 0.8 Calcium 8.5 Total Bilirubin 0.5 AST 51 H ALT 42 H Alkaline Phosphatase 156 H Total Protein 6.0 L Albumin 3.3 L C. difficile (PCR) Negative Antibody Screen Negative
[2024-09-17 18:50] LABS: Anion Gap 12 mmol/L (4-12); Blood Urea Nitrogen 27 mg/dL (7-17); Carbon Dioxide 17 mmol/L (22-30); Chloride 111 mmol/L (98-107); Estimated CRCL calculation 25 ml/min; Estimated Glomerular Filt Rate 34; Glucose 159 mg/dL (65-110); Potassium 2.4 mmol/L (3.4-5.0); Sodium 140 mmol/L (137-145)
[2024-09-17] MEDS: POTASSIUM CHLORIDE 20 MEQ PACKET (FOR LIQUID) 40 MEQ PO (19:08)
[2024-09-17 19:13] LABS: Magnesium 1.6 mg/dL (1.6-2.3)
[2024-09-18] VITALS (34 sets, daily range): BP systolic 87–116; BP diastolic 32–75; PULSE 64–102; RESP 18–34; TEMP 36.4–37.7; O2SAT 91–100
[2024-09-18] MEDS: SODIUM CHLORIDE 0.9% IV 500 ML IV CONT ×2 (01:09→03:11)
[2024-09-18 04:39] LABS: Alanine Aminotransferase 42 U/L (6-35); Albumin Level 2.7 g/dL (3.5-5.1); Alkaline Phosphatase 156 U/L (38-126); Anion Gap 11 mmol/L (4-12); Aspartate Amino Transferase 49 U/L (14-36); Bilirubin,Total 0.2 mg/dL (0.2-1.3); Blood Urea Nitrogen 21 mg/dL (7-17); Calcium 7.6 mg/dL (8.4-10.2); Carbon Dioxide 22 mmol/L (22-30); Chloride 108 mmol/L (98-107); Estimated CRCL calculation 26 ml/min; Estimated Glomerular Filt Rate 36; Glucose 115 mg/dL (65-110); Magnesium 1.5 mg/dL (1.6-2.3); Sodium 141 mmol/L (137-145)
[2024-09-18 04:52] LABS: Basophils Absolute Auto 0.1 K/mm3 (0.0-0.1); Basophils Percent Auto 0.9 % (0.2-1.2); Eosinophils Absolute Auto 0.1 K/mm3 (0-0.3); Eosinophils Percent Auto 2.1 % (0-4.4); Immature Granulocyte Absolute 0.04 K/mm3 (0.00-0.031); Immature Granulocyte Percent A 0.7 % (0-0.5); Lymphocytes Absolute Auto 0.52 K/mm3 (0.9-3.2); Lymphocytes Percent Auto 9.7 % (18.3-44.2); Mean Corpuscular HGB Conc 31.5 g/dl (32-36); Mean Corpuscular Hemoglobin 28.7 pg (26-34); Mean Corpuscular Volume 91.2 fl (80-100); Mean Platelet Volume 9.5 fl (7.4-10.4); Monocytes Absolute Auto 0.9 K/mm3 (0.1-0.6); Monocytes Percent Auto 15.9 % (2.6-8.5); Neutrophils Absolute Auto 3.8 K/mm3 (1.3-6.7); Neutrophils Percent Auto 70.7 % (45.5-73.1); Platelet Count Result 156 k/mm3 (150-375); Red Blood Count 2.16 M/mm3 (4.2-5.4); Red Cell Distribution Width 15.7 % (11.5-14.5); White Blood Count 5.4 K/mm3 (4.5-10.0)
[2024-09-18 05:03] LABS: Hematocrit 19.7 % (37.0-47.0); Hemoglobin 6.2 g/dL (12.0-15.0)
[2024-09-18] MEDS: SODIUM BICARBONATE 8.4% 150 MEQ in DEXTROSE 5% 1,000 ML 950 ML 125 MEQ IV CONT (06:15)
[2024-09-18] MEDS: PIPERACILLN/TAZ 3.375GM/NS50ML 3.375 GM/50 ML BAG IVPB ×5 (06:16→23:50)
[2024-09-18] MEDS: SODIUM CHLORIDE 0.9% IV 1,000 ML 75 ML IV CONT (09:05)
[2024-09-18] MEDS: MAGNESIUM SULF 1 GM/D5W 100 ML 1 GM/100 ML BAG IVPB ×2 (09:05→12:24)
--- NOTE | 2024-09-18 09:20 | PC.NURSE ---
Increased temp noted during initial 15 minutes of blood transfusion. Dr. Pérez and Keegan, Charge Nurse made aware. Hypotensive on repeat vitals. Please refer to VS documentation. Dr. Watts to evaluate at bedside.
--- NOTE | 2024-09-18 09:45 | PC.NURSE ---
Dr. Watts at bedside. Transferring pt to ICU-7.
--- NOTE | 2024-09-18 10:15 | ADMIMU ---
This patient, Patsy Hugo, was admitted to IMU status, and placed in Intensive Care Unit-7 @ 1015. Patient/family oriented to hospital policies and general routines including ID bracelet, bed and alarms, visiting hours, pain management, procedures, bathroom and other care routines, personal items, smoking policy, room service/diet, and visiting hours. Valuables list has been completed. Information on how to activate the Rapid Response Team has been discussed. Patient/Family are encouraged to report perceived risks to care and to ask questions if they do not understand what they are told or what they should do.
--- NOTE | 2024-09-18 10:23 | P.CONIN_ITS ---
Assessment and Plan Assessment and plan (1) Hypotension: Code(s): I95.9 - Hypotension, unspecified Status: Acute Assessment and Plan: Hypotension secondary to combination of hypovolemia and possible sepsis from UTI Transferred to ICU Continue crystalloids Start Orlin-Synephrine infusion and obtain PICC line Albumin (2) Sepsis: Qualifiers: Sepsis type: sepsis due to unspecified organism Sepsis acute organ dysfunction status: with acute organ dysfunction Severe sepsis acute organ dysfunction type: acute renal failure Acute renal failure type: unspecified S evere sepsis shock status: without septic shock Qualified Code(s): A41.9 - Sepsis, unspecified organism; R65.20 - Severe sepsis without septic shock; N17.9 - Acute kidney failure, unspecified Code(s): A41.9 - Sepsis, unspecified organism Status: Acute Assessment and Plan: Patient has a catheter related urinary tract infection Stool is negative for C diff Blood cultures have been ordered and pending. Will check urine culture Catheter has been changed Check lactic acid and procalcitonin level Continue Zosyn She does have superficial wounds on the both buttocks local wound care (3) Acute renal failure: Qualifiers: Acute renal failure type: unspecified Qualified Code(s): N17.9 - Acute kidney failure, unspecified Code(s): N17.9 - Acute kidney failure, unspecified Status: Acute Assessment and Plan: Secondary to hypovolemia and obstruction leading to bilateral hydroureternephrosis Obstruction appears to have been resolved as patient had stool disembarked. Urine output has improved Continue IV fluid Monitor urine output electrolytes and creatinine Will obtain a ultrasound (4) Anemia: Code(s): D64.9 - Anemia, unspecified Status: Acute Assessment and Plan: Patient has chronic which has now dropped to below 7 likely secondary to hemodilution Patient had 2 units of PRBC transfusion ordered but had increase in temperature after initiation of 1st unit Patient is being evaluated for blood transfusion reaction Hold anticoagulation Follow blood bank protocol (5) Dehydration: Code(s): E86.0 - Dehydration Status: Acute Assessment and Plan: Patient has received good amount of crystalloids. I will continue at a lower rate. Albumin Patient now has diet ordered (6) Chronic indwelling White catheter: Code(s): Z97.8 - Presence of other specified devices Status: Acute Assessment and Plan: Chronic indwelling White for neurogenic bladder White has been changed to temperature sensing White (7) Catheter-associated urinary tract infection: Qualifiers: Encounter type: initial encounter Indwelling urinary catheter type: i ndwelling urethral catheter Qualified Code(s): T83.511A - Infection and inflammatory reaction due to indwelling urethral catheter, initial encounter; N39.0 - Urinary tract infection, site not specified Code(s): T83.511A - Infection and inflammatory reaction due to indwelling urethral catheter, initial encounter; N39.0 - Urinary tract infection, site not specified Status: Acute Assessment and Plan: See above (8) Pressure ulcer of buttock: Qualifiers: Pressure injury stage: unstageable Laterality: unspecified laterality Qualified Code(s): L89.300 - Pressure ulcer of unspecified buttock, unstageable Code(s): L89.309 - Pressure ulcer of unspecified buttock, unspecified stage Status: Acute Assessment and Plan: Wound appears superficial on exam. Local wound care (9) Electrolyte abnormality: Code(s): E87.8 - Other disorders of electrolyte and fluid balance, not elsewhere classified Status: Acute Assessment and Plan: Potassium and magnesium replacement ordered. Repeat the checks ordered. Plan DVT prophylaxis -SCDs. Patient has also has a IVC filter. Holding anticoagulation due to anemia Stress ulcer prophylaxis -on PPI Nutrition -diet ordered Code Status - Full Code Total Critical Care Time - 30 minutes Due to a high probability of clinically significant, life threatening deterioration, the patient required my highest level of preparedness to intervene emergently and I personally spent this critical care time directly and personally managing the patient. This critical care time included obtaining a history; examining the patient; pulse oximetry; ordering and review of studies; arranging urgent treatment with development of a management plan; evaluation of patient's response to treatment; frequent reassessment; and discussions with other providers. It was exclusive of separately billable procedures and treating other patients and teaching time. Please see Assessment and Plan section and the rest of the note for further information on patient assessment and treatment Cloth Dyer Consult Note Consult date: 09/18/24 Reason for consult: Hypotension HPI: Patsy Hugo is a 64 year old female with PMH of dementia, chronic anemia, DVT, GERD, HLD, HTN, ulcerative colitis, and neurogenic bladder with chronic indwelling White [facility] with coffee-ground emesis. CT abdomen/pelvis showed a high-grade bowel obstruction secondary to fecal impaction with mass effect on the distal ureters causing bilateral hydroureteronephrosis.. Lab work showed WBC 15.3, hemoglobin 8.3 (previously 8.2 in 2020), normal coags, sodium 133, creatinine 1.60 and GFR 32 (previously 1.1 and GFR 50 in 202), lactic 2.0, calcium 7.9 (corrected to 8.3 due to albumin), UA suggestive of UTI (may be contaminant), C diff negative, viral PCR negative. Patient was manually disimpacted in the a ER and enema was given. General surgery and Gastroenterology was consulted. Stool was Hemoccult negative. Post disimpaction patient started having diarrhea. NG tube was removed her nausea vomiting resolved and patient was started on diet. Her hemoglobin gradually trended down and transfusion was ordered. Her blood pressure has remained soft and she required fluid boluses overnight P this morning she had a increase in temperature after initiation of blood transfusion and was deemed as a transfusion reaction and transfusion was discontinued on the floor and blood bank contacted. I was called to evaluate patient for persistent low blood pressure as systolic pressure was in 90s map in 50s Patient herself denies any complaints at this time. Apart from the diarrhea she is having. She is eating and drinking. She denies any chest pain shortness a breath nausea vomiting abdominal pain. All other systems were reviewed and were negative Patient transferred to ICU [facility] Past Medical History Medical History (Updated 09/18/24 @ 10:49 by Sánchez Watts MD) Presence of IVC filter Hypertension Neurogenic bladder Deep venous thrombosis Coronary artery disease Poorly documented and patient denies. Anxiety Chronic anemia Arthritis Gastroesophageal reflux disease Ulcerative colitis Hyperlipidemia Dementia Chronic indwelling White catheter Surgical History Surgical History History of colon resection Family History Family History Other Family history unknown Social History Social History Social History: Surrogate decision maker: Amanda Parker, sibling. Code status: Full code. Smoking status: Unknown if ever smoked Alcohol intake: never Substance use: never Do You Feel Safe in your Home?: Yes Lack of Transportation: No Lack of Food: Never True Current Housing: I Do Not Have Housing Concerned About Future Housing: No Difficulty Paying Gas/Electric Bills: No Difficulty Paying for Meds: No Currently Unemployed: No Education: Don't Know Difficulty w/ Childcare or Family Care: No Additional living arrangements comments: The patient is a resident at [facility]. Additional occupation/education comments: Disabled. Spiritual care concerns: No Meds Home Medications and Allergies Home Medications ?Medication ?Instructions ?Recorded ?Confirmed ?Type hydroxyzine pamoate 25 mg capsule 25 mg PO BID 03/07/21 09/16/24 History lactulose 10 gram/15 mL oral 10 g PO TID PRN Constipation 03/07/21 09/16/24 History solution losartan 25 mg tablet 25 mg PO DAILY 03/07/21 09/16/24 History mirtazapine 15 mg tablet 15 mg PO HS 03/07/21 09/16/24 History montelukast 10 mg tablet 10 mg PO DAILY 03/07/21 09/16/24 History pantoprazole 40 mg tablet,delayed 40 mg PO DAILY 03/07/21 09/16/24 History release sertraline 50 mg tablet 50 mg PO DAILY 03/07/21 09/16/24 History simvastatin 20 mg tablet 20 mg PO HS 03/07/21 09/16/24 History sucralfate 1 gram tablet 1 g PO BID 03/07/21 09/16/24 History Lactobacillus acidophilus 1 cap PO DAILY 03/08/21 09/16/24 History (Acidophilus capsule) acetaminophen 500 mg capsule 1,000 mg PO Q6H PRN Pain 03/08/21 09/16/24 History ascorbate calcium (vitamin C) 500 500 mg PO BID 03/08/21 09/16/24 History mg tablet cholecalciferol (vitamin D3) 25 4,000 unit PO DAILY 03/08/21 09/16/24 History mcg (1,000 unit) tablet docusate sodium 100 mg capsule 100 mg PO BID PRN constipation 03/08/21 09/16/24 History ergocalciferol (vitamin D2) 25,000 50,000 unit PO WEEKLY 03/08/21 09/16/24 History unit capsule ferrous sulfate 325 mg (65 mg 325 mg PO BID 03/08/21 09/16/24 History iron) tablet (Iron (ferrous sulfate)) multivitamin with minerals (Daily 1 tablet PO DAILY 03/08/21 09/16/24 History Multivitamin-Minerals tablet) irbesartan 75 mg tablet 75 mg PO DAILY 09/16/24 09/16/24 History potassium chloride 10 mEq 10 meq PO BID 09/16/24 09/16/24 History tablet,extended release Allergies Allergy/AdvReac Type Severity Reaction Status Date / Time lorazepam Allergy Unknown Verified 03/07/21 14:22 Vital Signs Vital Signs - 24 hr 09/17/24 12:00 09/17/24 12:00 09/17/24 12:00 Temperature 36.9 C Pulse Rate 95 95 Respiratory Rate 18 Blood Pressure 128/52 L Pulse Oximetry 98 97 Oxygen Delivery Room Air 09/17/24 14:00 09/17/24 15:48 09/17/24 16:00 Temperature 36.9 C Pulse Rate 95 95 Respiratory Rate 20 Blood Pressure 116/62 Pulse Oximetry 97 99 Oxygen Delivery Room Air 09/17/24 16:00 09/17/24 18:00 09/17/24 19:02 Temperature 36.8 C Pulse Rate 88 84 93 Respiratory Rate 22 H Blood Pressure 97/43 L Pulse Oximetry 99 Oxygen Delivery 09/17/24 20:00 09/17/24 21:15 09/17/24 22:00 Temperature Pulse Rate 83 86 Respiratory Rate Blood Pressure Pulse Oximetry Oxygen Delivery Room Air 09/17/24 23:39 09/17/24 23:56 09/18/24 00:00 Temperature 36.7 C Pulse Rate 80 Respiratory Rate 20 Blood Pressure 86/44 L 88/54 L Pulse Oximetry 98 Oxygen Delivery Room Air 09/18/24 00:00 09/18/24 02:00 09/18/24 02:10 Temperature Pulse Rate 85 68 Respiratory Rate Blood Pressure 87/48 L Pulse Oximetry Oxygen Delivery 09/18/24 02:30 09/18/24 04:00 09/18/24 04:20 Temperature 36.7 C Pulse Rate 64 73 Respiratory Rate 20 Blood Pressure 95/44 L 101/52 L Pulse Oximetry 98 Oxygen Delivery 09/18/24 04:20 09/18/24 06:00 09/18/24 07:39 Temperature 36.5 C Pulse Rate 89 74 Respiratory Rate 20 Blood Pressure 104/50 L Pulse Oximetry 100 Oxygen Delivery Room Air 09/18/24 08:47 09/18/24 09:10 09/18/24 09:39 Temperature 36.4 C L 37.4 C 36.9 C Pulse Rate 72 81 81 Respiratory Rate 20 20 20 Blood Pressure 94/47 L 103/48 L 99/62 L Pulse Oximetry 99 99 99 Oxygen Delivery 09/18/24 09:46 Temperature 36.9 C Pulse Rate 81 Respiratory Rate 20 Blood Pressure 99/32 L Pulse Oximetry 99 Oxygen Delivery Exam 2 Narrative: General: Pt is alert awake and in NAD Lungs/Chest: Trachea central Clear BS B/L, No crackles or wheezing. Cardiac: RRR. Normal S1 S2. No murmurs Circulation: Pedal pulses are intact and symmetrical. Abdomen: Normal bowel sounds.. Soft. NT. ND. Obese Extremities: Mild bilateral pitting edema : White in place Neurologic: AOx 3, paraplegia, does have touch sensation in the feet but unable to move legs, contractures in legs and left up hand, able to follow commands with both hand PERRL slurred speech Skin: Superficial decubitus ulcer on on both buttocks Results Labs 09/18/24 04:41 09/18/24 04:13 Labs: Short CBC 09/18/24 Range/Units 04:41 WBC 5.4 (4.5-10.0) K/mm3 Hgb 6.2 L* (12.0-15.0) g/dL Hct 19.7 L* (37.0-47.0) % Plt Count 156 (150-375) k/mm3 BMP 09/17/24 09/18/24 18:30 04:13 Sodium 140 141 Potassium 2.4 L* 3.0 L Chloride 111 H 108 H Carbon Dioxide 17 L 22 BUN 27 H 21 H Creatinine 1.53 H 1.45 H Glucose 159 H 115 H Calcium 8.0 L 7.6 L Liver Function 09/18/24 Range/Units 04:13 Total Bilirubin 0.2 (0.2-1.3) mg/dL AST 49 H (14-36) U/L ALT 42 H (6-35) U/L Alkaline Phosphatase 156 H (38-126) U/L Albumin 2.7 L (3.5-5.1) g/dL Quality VTE Prophylaxis VTE prophylaxis: mechanical ordered Hospitalist [facility] Advance Care Plan I have confirmed that the patient's Advanced Care Plan is present, code status is documented, or surrogate decision maker is listed in patient medical record.: Yes Medication Reconciliation I have utilized all available resources to obtain, update and review the patients current medications (includes all prescriptions, OTC, herbals, cannabis, and nutritional supplements).: Yes
[2024-09-18] MEDS: LIDOCAINE 1% PF INJ 5 ML VIAL INFILTRATE (10:30)
[2024-09-18 10:42] LABS: TXRXN Occult Blood Urine Immed 3+ (Negative)
[2024-09-18 10:43] LABS: TXRXN RBC Urine Immediate >75 /hpf (0-2)
[2024-09-18 10:46] LABS: Total Bilirubin Imm Post TxRxn 0.4 mg/dL (0.2-1.3)
[2024-09-18 11:45] LABS: Procalcitonin 0.3 ng/mL
[2024-09-18] MEDS: POTASSIUM CHLORIDE 20 MEQ ER TABLET 40 MEQ PO (11:45)
[2024-09-18] MEDS: KCL 20 MEQ/D5/0.45% SOD CHL 1,000 ML 75 ML IV CONT (11:46)
[2024-09-18] MEDS: DOCUSATE SODIUM LIQ 100 MG/10 ML UDC FEED TUBE ×2 (11:47→20:47)
[2024-09-18] MEDS: ACETAMINOPHEN ELIXIR 325 MG/10.15 ML UDC 650 MG FEED TUBE (11:49)
[2024-09-18] MEDS: ALBUMIN HUMAN 25% 25 GM/100 ML 100 ML IVPB ×2 (11:54→17:15)
[2024-09-18] MEDS: TUBING, BLOOD PLUM PUMP TUBING 1 EACH XX (11:54)
[2024-09-18] MEDS: SODIUM CHLORIDE 0.9% IV 250 ML 30 ML IV CONT ×2 (11:54→17:05)
--- NOTE | 2024-09-18 12:06 | PC.NURSE ---
This patient, Patsy Hugo, was transferred to ICU7 on 09/18/24 at 1004. Personal belongings sent with patient. Report given to AMARJIT Hawley. Appropriate documentation sent with patient.
--- NOTE | 2024-09-18 12:12 | P.PN_ITS ---
Progress Note: A&P Assessment and Plan (1) Fecal impaction: Code(s): K56.41 - Fecal impaction Status: Acute Assessment and Plan: Patient is having some overflow diarrhea around the large stool ball. X-ray yesterday shows improvement in the amount of stool burden in the rectum however there still is a stool ball noted. She was given fleets enemas and bottle of magnesium citrate. She continues to have diarrhea. Can consider a water- soluble Gastrografin enema to see if that could be more useful therapeutically to try to promote passage of the large stool burden in the rectum. She does have wounds on her buttock and perianal region and the posterior thighs. She is nonambulatory and these likely a combination of pressure ulcers and excoriation from her overflow diarrhea. The option of a colostomy to divert the fecal stream from the rectum is an option but the prognosis for healing the wounds will be poor since she is nonambulatory the issue of pressure on her buttocks may be a ongoing issue. Presently no need for acute surgical management as she does not appear to have any perforation of her colon due to the stool ball. White blood count is normal. She is given some IV antibiotics for UTI as well as possible colitis from the stool ball. She is anemic and is getting some blood today as well. Subjective Date/time seen: 09/18/24 12:12 Interval history: Patient overnight due to hypotension. Pressors were not started. She responded well to fluids. She has been having diarrhea to try to evaluate the large stool ball in the rectum. She has been given multiple enemas and oral laxatives. She remains confused. Exam GI: Other: Abdomen is little distended. Minimal tenderness. Objective Data Vital Signs Vital Signs: Vital Signs - 24 hr 09/17/24 14:00 09/17/24 15:48 09/17/24 16:00 Temperature 36.9 C Pulse Rate 95 95 Respiratory Rate 20 Blood Pressure 116/62 Pulse Oximetry 97 99 Oxygen Delivery Room Air 09/17/24 16:00 09/17/24 18:00 09/17/24 19:02 Temperature 36.8 C Pulse Rate 88 84 93 Respiratory Rate 22 H Blood Pressure 97/43 L Pulse Oximetry 99 Oxygen Delivery 09/17/24 20:00 09/17/24 21:15 09/17/24 22:00 Temperature Pulse Rate 83 86 Respiratory Rate Blood Pressure Pulse Oximetry Oxygen Delivery Room Air 09/17/24 23:39 09/17/24 23:56 09/18/24 00:00 Temperature 36.7 C Pulse Rate 80 Respiratory Rate 20 Blood Pressure 86/44 L 88/54 L Pulse Oximetry 98 Oxygen Delivery Room Air 09/18/24 00:00 09/18/24 02:00 09/18/24 02:10 Temperature Pulse Rate 85 68 Respiratory Rate Blood Pressure 87/48 L Pulse Oximetry Oxygen Delivery 09/18/24 02:30 09/18/24 04:00 09/18/24 04:20 Temperature 36.7 C Pulse Rate 64 73 Respiratory Rate 20 Blood Pressure 95/44 L 101/52 L Pulse Oximetry 98 Oxygen Delivery 09/18/24 04:20 09/18/24 06:00 09/18/24 07:39 Temperature 36.5 C Pulse Rate 89 74 Respiratory Rate 20 Blood Pressure 104/50 L Pulse Oximetry 100 Oxygen Delivery Room Air 09/18/24 08:47 09/18/24 09:10 09/18/24 09:39 Temperature 36.4 C L 37.4 C 36.9 C Pulse Rate 72 81 81 Respiratory Rate 20 20 20 Blood Pressure 94/47 L 103/48 L 99/62 L Pulse Oximetry 99 99 99 Oxygen Delivery 09/18/24 09:46 Temperature 36.9 C Pulse Rate 81 Respiratory Rate 20 Blood Pressure 99/32 L Pulse Oximetry 99 Oxygen Delivery Intake/Output Intake/Output: Intake & Output 09/15/24 09/16/24 09/17/24 09/18/24 23:59 23:59 23:59 23:59 Intake Total 1000 3770 2736 Output Total 202 1652 650 Balance 798 2118 2086 Meds/Results Medications: Active Medications Generic Name Dose Route Start Last Admin Trade Name Freq PRN Reason Stop Dose Admin Acetaminophen 650 mg 09/16/24 17:01 09/18/24 11:49 Acetaminophen Elixir 325 Mg/10.15 Ml Udc FEED TUBE 650 mg Q6H PRN Administration Mild Pain (1-3) or Fever Docusate Sodium 100 mg 09/16/24 21:00 09/18/24 11:47 Docusate Sodium Liq 100 Mg/10 Ml Udc FEED TUBE 100 mg Q12HR SONIA Administration Piperacillin/Tazobactam/Dextrose 3.375 gm in 50 mls @ 100 mls/hr 09/16/24 23:00 09/18/24 11:56 Zosyn 3.375 Gm/Ns 50 Ml IVPB 100 mls/hr Q6HR SONIA Administration Sodium Chloride 250 mls @ 30 mls/hr 09/18/24 05:10 09/18/24 11:54 Normal Saline Iv IV CONT 09/18/24 13:29 30 mls/hr .Q8H20M ONE Administration Phenylephrine HCl 50 mg/ 250 ml in 250 mls @ 12 mls/hr 09/18/24 10:20 Dextrose IV CONT .[id number] SONIA Protocol 40 MCG/MIN Potassium Chloride/Dextrose/Sod Cl 1,000 mls @ 75 mls/hr 09/18/24 10:20 09/18/24 11:46 Kcl 20 Meq/D5/0.45% Sod Chl IV CONT 75 mls/hr .[id number] SONIA Administration Albumin Human 100 mls @ 60 mls/hr 09/18/24 12:00 09/18/24 11:54 Albutein IVPB 09/19/24 07:39 60 mls/hr Q6HR SONIA Administration Sodium Chloride 250 mls @ 30 mls/hr 09/18/24 11:37 Normal Saline Iv IV CONT 09/18/24 19:56 .Q8H20M STA Polyethylene Glycol 17 gm 09/19/24 09:00 Polyethylene Glycol 3350 17 Gm Powd.Pack PO QAM SONIA Potassium Bicarbonate 50 meq 09/18/24 16:00 Potassium Bicarbonate 25 Meq Tabef PO 09/18/24 16:01 ONCE ONE Sodium Chloride 10 ml 09/18/24 14:00 Central Line Flush IV PUSH Q8HR SONIA Sodium Chloride 10 ml 09/18/24 10:48 Central Line Flush IV PUSH PRN PRN with TPN bag changes Sodium Chloride 20 ml 09/18/24 10:48 Central Line Flush IV PUSH PRN PRN after blood draws Radiology Results: ITS Impressions Abdomen/Pelvis CT 09/16/24 13:53 IMPRESSION: High-grade bowel obstruction secondary to fecal impaction with mass effect on the distal ureters causing bilateral hydroureteronephrosis. Abdomen X-Ray 09/17/24 08:28 Impression: 1: Moderate colonic and rectal fecal loading. Chest X-Ray 09/18/24 11:10 IMPRESSION: 1. Right upper extremity PICC line tip at the superior cavoatrial junction. 2. Mild discoid atelectasis at the left lung base. No other acute cardiopulmonary disease. Labs Labs: Laboratory Results - last 24 hr 09/16/24 09/17/24 09/17/24 14:14 18:27 18:30 WBC RBC Hgb Hct MCV MCH MCHC RDW Plt Count MPV Immature Gran % (Auto) Neut % (Auto) Lymph % (Auto) [place] % (Auto) Eos % (Auto) Baso % (Auto) Lymph # (Auto) [place] # (Auto) Eos # (Auto) Baso # (Auto) Abs Immat Gran (auto) Absolute Neuts (auto) Absolute Nucleated RBC Nucleated RBC % Sodium 140 Potassium 2.4 L* Chloride 111 H Carbon Dioxide 17 L Anion Gap 12 BUN 27 H Creatinine 1.53 H Estim Creat Clear Calc 25 Estimated GFR 34 L Glucose 159 H Lactic Acid Calcium 8.0 L Magnesium 1.6 Total Bilirubin Post-Trans Total Bili AST ALT Alkaline Phosphatase Total Protein Albumin Procalcitonin Ur Blood, Post-Transfus Post-Trnsf Ur Hematuria Blood Type O Positive Antibody Screen Negative Crossmatch See Detail 09/18/24 09/18/24 09/18/24 04:13 04:41 10:17 WBC 5.4 RBC 2.16 L Hgb 6.2 L* Hct 19.7 L* MCV 91.2 MCH 28.7 MCHC 31.5 L RDW 15.7 H Plt Count 156 MPV 9.5 Immature Gran % (Auto) 0.7 H Neut % (Auto) 70.7 Lymph % (Auto) 9.7 L [place] % (Auto) 15.9 H Eos % (Auto) 2.1 Baso % (Auto) 0.9 Lymph # (Auto) 0.52 L [place] # (Auto) 0.9 H Eos # (Auto) 0.1 Baso # (Auto) 0.1 Abs Immat Gran (auto) 0.04 H Absolute Neuts (auto) 3.8 Absolute Nucleated RBC 0.000 Nucleated RBC % 0.0 Sodium 141 Potassium 3.0 L Chloride 108 H Carbon Dioxide 22 Anion Gap 11 BUN 21 H Creatinine 1.45 H Estim Creat Clear Calc 26 Estimated GFR 36 L Glucose 115 H Lactic Acid Calcium 7.6 L Magnesium 1.5 L Total Bilirubin 0.2 Post-Trans Total Bili AST 49 H ALT 42 H Alkaline Phosphatase 156 H Total Protein 5.0 L Albumin 2.7 L Procalcitonin 0.3 Ur Blood, Post-Transfus 3+ H Post-Trnsf Ur Hematuria >75 H Blood Type Antibody Screen Crossmatch 09/18/24 09/18/24 10:19 11:42 WBC RBC Hgb Hct MCV MCH MCHC RDW Plt Count MPV Immature Gran % (Auto) Neut % (Auto) Lymph % (Auto) [place] % (Auto) Eos % (Auto) Baso % (Auto) Lymph # (Auto) [place] # (Auto) Eos # (Auto) Baso # (Auto) Abs Immat Gran (auto) Absolute Neuts (auto) Absolute Nucleated RBC Nucleated RBC % Sodium Potassium Chloride Carbon Dioxide Anion Gap BUN Creatinine Estim Creat Clear Calc Estimated GFR Glucose Lactic Acid 1.0 Calcium Magnesium Total Bilirubin Post-Trans Total Bili 0.4 AST ALT Alkaline Phosphatase Total Protein Albumin Procalcitonin Ur Blood, Post-Transfus Post-Trnsf Ur Hematuria Blood Type Antibody Screen Crossmatch
--- NOTE | 2024-09-18 13:35 | WPDGIPROGNO ---
Progress Note: A&P Assessment and Plan (1) Fecal impaction: Code(s): K56.41 - Fecal impaction Status: Acute Assessment and Plan: treated medically she will be a poor surgical candidate for surgery as definitive solution to prevent similar presentations ngt removed diet as tolerated (2) Acute renal failure: Qualifiers: Acute renal failure type: unspecified Qualified Code(s): N17.9 - Acute kidney failure, unspecified Code(s): N17.9 - Acute kidney failure, unspecified Status: Acute (3) Chronic anemia: Code(s): D64.9 - Anemia, unspecified Status: Chronic Assessment and Plan: s/p blood tranfusion blood thinner on hold (4) Pressure ulcer of buttock: Qualifiers: Pressure injury stage: unstageable Laterality: unspecified laterality Qualified Code(s): L89.300 - Pressure ulcer of unspecified buttock, unstageable Code(s): L89.309 - Pressure ulcer of unspecified buttock, unspecified stage Status: Acute (5) Dementia: Code(s): F03.90 - Unspecified dementia, unspecified severity, without behavioral disturbance, psychotic disturbance, mood disturbance, and anxiety Status: Chronic (6) Catheter-associated urinary tract infection: Qualifiers: Encounter type: initial encounter Indwelling urinary catheter type: indwelling urethral catheter Qualified Code(s): T83.511A - Infection and inflammatory reaction due to indwelling urethral catheter, initial encounter; N39.0 - Urinary tract infection, site not specified Code(s): T83.511A - Infection and inflammatory reaction due to indwelling urethral catheter, initial encounter; N39.0 - Urinary tract infection, site not specified Status: Acute Subjective Date/time seen: 09/18/24 13:35 Interval history: she was moved to icu because hypotension but better after medical treatment no overt gib but hgb slowly trended down and received blood transfusion NGT was removed, she is comfortable Review of Systems Review of Systems: All systems reviewed & are unremarkable except as noted in HPI and below Exam Narrative: General: Pt is alert awake and in NAD Lungs/Chest: Trachea central Clear BS B/L, No crackles or wheezing. Cardiac: RRR. Normal S1 S2. No murmurs Circulation: Pedal pulses are intact and symmetrical. Abdomen: Normal bowel sounds.. Soft. NT. ND. Obese Extremities: Mild bilateral pitting edema : Whtie in place Neurologic: AOx 3, paraplegia, does have touch sensation in the feet but unable to move legs, contractures in legs and left up hand, able to follow commands with both hand PERRL slurred speech Skin: Superficial decubitus ulcer on on both buttocks Objective Data Vital Signs Vital Signs: Vital Signs - 24 hr 09/17/24 14:00 09/17/24 15:48 09/17/24 16:00 Temperature 98.5 F Pulse Rate 95 95 Respiratory Rate 20 Blood Pressure 116/62 Pulse Oximetry 97 99 Oxygen Delivery Room Air 09/17/24 16:00 09/17/24 18:00 09/17/24 19:02 Temperature 98.3 F Pulse Rate 88 84 93 Respiratory Rate 22 H Blood Pressure 97/43 L Pulse Oximetry 99 Oxygen Delivery 09/17/24 20:00 09/17/24 21:15 09/17/24 22:00 Temperature Pulse Rate 83 86 Respiratory Rate Blood Pressure Pulse Oximetry Oxygen Delivery Room Air 09/17/24 23:39 09/17/24 23:56 09/18/24 00:00 Temperature 98.1 F Pulse Rate 80 Respiratory Rate 20 Blood Pressure 86/44 L 88/54 L Pulse Oximetry 98 Oxygen Delivery Room Air 09/18/24 00:00 09/18/24 02:00 09/18/24 02:10 Temperature Pulse Rate 85 68 Respiratory Rate Blood Pressure 87/48 L Pulse Oximetry Oxygen Delivery 09/18/24 02:30 09/18/24 04:00 09/18/24 04:20 Temperature 98.0 F Pulse Rate 64 73 Respiratory Rate 20 Blood Pressure 95/44 L 101/52 L Pulse Oximetry 98 Oxygen Delivery 09/18/24 04:20 09/18/24 06:00 09/18/24 07:39 Temperature 97.7 F Pulse Rate 89 74 Respiratory Rate 20 Blood Pressure 104/50 L Pulse Oximetry 100 Oxygen Delivery Room Air 09/18/24 08:00 09/18/24 08:00 09/18/24 08:47 Temperature 97.5 F L Pulse Rate 80 72 Respiratory Rate 20 Blood Pressure 94/47 L Pulse Oximetry 99 99 Oxygen Delivery Room Air 09/18/24 09:10 09/18/24 09:39 09/18/24 09:46 Temperature 99.4 F 98.5 F 98.5 F Pulse Rate 81 81 81 Respiratory Rate 20 20 20 Blood Pressure 103/48 L 99/62 L 99/32 L Pulse Oximetry 99 99 99 Oxygen Delivery 09/18/24 10:00 Temperature Pulse Rate 87 Respiratory Rate Blood Pressure Pulse Oximetry Oxygen Delivery Intake/Output Intake/Output: Intake & Output 09/15/24 09/16/24 09/17/24 09/18/24 23:59 23:59 23:59 23:59 Intake Total 1000 3770 2736 Output Total 202 1652 650 Balance 798 2118 2086 Meds/Results Medications: Active Medications Generic Name Dose Route Start Last Admin Trade Name Freq PRN Reason Stop Dose Admin Acetaminophen 650 mg 09/16/24 17:01 09/18/24 11:49 Acetaminophen Elixir 325 Mg/10.15 Ml Udc FEED TUBE 650 mg Q6H PRN Administration Mild Pain (1-3) or Fever Docusate Sodium 100 mg 09/16/24 21:00 09/18/24 11:47 Docusate Sodium Liq 100 Mg/10 Ml Udc FEED TUBE 100 mg Q12HR SONIA Administration Piperacillin/Tazobactam/Dextrose 3.375 gm in 50 mls @ 100 mls/hr 09/16/24 23:00 09/18/24 11:56 Zosyn 3.375 Gm/Ns 50 Ml IVPB 100 mls/hr Q6HR SONIA Administration Phenylephrine HCl 50 mg/ 250 ml in 250 mls @ 12 mls/hr 09/18/24 10:20 Dextrose IV CONT .[id number] SONIA Protocol 40 MCG/MIN Potassium Chloride/Dextrose/Sod Cl 1,000 mls @ 75 mls/hr 09/18/24 10:20 09/18/24 11:46 Kcl 20 Meq/D5/0.45% Sod Chl IV CONT 75 mls/hr .[id number] SONIA Administration Albumin Human 100 mls @ 60 mls/hr 09/18/24 12:00 09/18/24 11:54 Albutein IVPB 09/19/24 07:39 60 mls/hr Q6HR SONIA Administration Sodium Chloride 250 mls @ 30 mls/hr 09/18/24 11:37 Normal Saline Iv IV CONT 09/18/24 19:56 .Q8H20M STA Polyethylene Glycol 17 gm 09/19/24 09:00 Polyethylene Glycol 3350 17 Gm Powd.Pack PO QAM SONIA Potassium Bicarbonate 50 meq 09/18/24 16:00 Potassium Bicarbonate 25 Meq Tabef PO 09/18/24 16:01 ONCE ONE Sodium Chloride 10 ml 09/18/24 14:00 Central Line Flush IV PUSH Q8HR SONIA Sodium Chloride 10 ml 09/18/24 10:48 Central Line Flush IV PUSH PRN PRN with TPN bag changes Sodium Chloride 20 ml 09/18/24 10:48 Central Line Flush IV PUSH PRN PRN after blood draws Radiology Results: ITS Impressions Abdomen/Pelvis CT 09/16/24 13:53 IMPRESSION: High-grade bowel obstruction secondary to fecal impaction with mass effect on the distal ureters causing bilateral hydroureteronephrosis. Abdomen X-Ray 09/17/24 08:28 Impression: 1: Moderate colonic and rectal fecal loading. Chest X-Ray 09/18/24 11:10 IMPRESSION: 1. Right upper extremity PICC line tip at the superior cavoatrial junction. 2. Mild discoid atelectasis at the left lung base. No other acute cardiopulmonary disease. Labs Labs: Laboratory Results - last 24 hr 09/16/24 09/17/24 09/17/24 14:14 18:27 18:30 WBC RBC Hgb Hct MCV MCH MCHC RDW Plt Count MPV Immature Gran % (Auto) Neut % (Auto) Lymph % (Auto) [place] % (Auto) Eos % (Auto) Baso % (Auto) Lymph # (Auto) [place] # (Auto) Eos # (Auto) Baso # (Auto) Abs Immat Gran (auto) Absolute Neuts (auto) Absolute Nucleated RBC Nucleated RBC % Sodium 140 Potassium 2.4 L* Chloride 111 H Carbon Dioxide 17 L Anion Gap 12 BUN 27 H Creatinine 1.53 H Estim Creat Clear Calc 25 Estimated GFR 34 L Glucose 159 H Lactic Acid Calcium 8.0 L Magnesium 1.6 Total Bilirubin Post-Trans Total Bili AST ALT Alkaline Phosphatase Total Protein Albumin Procalcitonin Ur Blood, Post-Transfus Post-Trnsf Ur Hematuria Blood Type O Positive Antibody Screen Negative Crossmatch See Detail 09/18/24 09/18/24 09/18/24 04:13 04:41 10:17 WBC 5.4 RBC 2.16 L Hgb 6.2 L* Hct 19.7 L* MCV 91.2 MCH 28.7 MCHC 31.5 L RDW 15.7 H Plt Count 156 MPV 9.5 Immature Gran % (Auto) 0.7 H Neut % (Auto) 70.7 Lymph % (Auto) 9.7 L [place] % (Auto) 15.9 H Eos % (Auto) 2.1 Baso % (Auto) 0.9 Lymph # (Auto) 0.52 L [place] # (Auto) 0.9 H Eos # (Auto) 0.1 Baso # (Auto) 0.1 Abs Immat Gran (auto) 0.04 H Absolute Neuts (auto) 3.8 Absolute Nucleated RBC 0.000 Nucleated RBC % 0.0 Sodium 141 Potassium 3.0 L Chloride 108 H Carbon Dioxide 22 Anion Gap 11 BUN 21 H Creatinine 1.45 H Estim Creat Clear Calc 26 Estimated GFR 36 L Glucose 115 H Lactic Acid Calcium 7.6 L Magnesium 1.5 L Total Bilirubin 0.2 Post-Trans Total Bili AST 49 H ALT 42 H Alkaline Phosphatase 156 H Total Protein 5.0 L Albumin 2.7 L Procalcitonin 0.3 Ur Blood, Post-Transfus 3+ H Post-Trnsf Ur Hematuria >75 H Blood Type Antibody Screen Crossmatch 09/18/24 09/18/24 10:19 11:42 WBC RBC Hgb Hct MCV MCH MCHC RDW Plt Count MPV Immature Gran % (Auto) Neut % (Auto) Lymph % (Auto) [place] % (Auto) Eos % (Auto) Baso % (Auto) Lymph # (Auto) [place] # (Auto) Eos # (Auto) Baso # (Auto) Abs Immat Gran (auto) Absolute Neuts (auto) Absolute Nucleated RBC Nucleated RBC % Sodium Potassium Chloride Carbon Dioxide Anion Gap BUN Creatinine Estim Creat Clear Calc Estimated GFR Glucose Lactic Acid 1.0 Calcium Magnesium Total Bilirubin Post-Trans Total Bili 0.4 AST ALT Alkaline Phosphatase Total Protein Albumin Procalcitonin Ur Blood, Post-Transfus Post-Trnsf Ur Hematuria Blood Type Antibody Screen Crossmatch
[2024-09-18] MEDS: CENTRAL LINE FLUSH 10 ML IV PUSH ×2 (13:44→20:47)
--- NOTE | 2024-09-18 14:32 | P.PNIM_ITS ---
Progress Note: A&P Assessment and Plan (1) Sepsis: Qualifiers: Sepsis type: sepsis due to unspecified organism Sepsis acute organ dysfunction status: with acute organ dysfunction Severe sepsis acute organ dysfunction type: acute renal failure Acute renal failure type: unspecified Severe sepsis shock status: without septic shock Qualified Code(s): A41.9 - Sepsis, unspecified organism; R65.20 - Severe sepsis without septic shock; N17.9 - Acute kidney failure, unspecified Code(s): A41.9 - Sepsis, unspecified organism Status: Acute (2) Fecal impaction: Code(s): K56.41 - Fecal impaction Status: Acute (3) Bowel obstruction: Qualifiers: Intestinal obstruction type: fecal impaction Qualified Code(s): K56.41 - Fecal impaction Code(s): K56.609 - Unspecified intestinal obstruction, unspecified as to partial versus complete obstruction Status: Acute (4) Acute renal failure: Qualifiers: Acute renal failure type: unspecified Qualified Code(s): N17.9 - Acute kidney failure, unspecified Code(s): N17.9 - Acute kidney failure, unspecified Status: Acute (5) Catheter-associated urinary tract infection: Qualifiers: Encounter type: initial encounter Indwelling urinary catheter type: indwelling urethral catheter Qualified Code(s): T83.511A - Infection and inflammatory reaction due to indwelling urethral catheter, initial encounter; N39.0 - Urinary tract infection, site not specified Code(s): T83.511A - Infection and inflammatory reaction due to indwelling urethral catheter, initial encounter; N39.0 - Urinary tract infection, site not specified Status: Acute (6) Pressure ulcer of buttock: Qualifiers: Pressure injury stage: unstageable Laterality: unspecified laterality Qualified Code(s): L89.300 - Pressure ulcer of unspecified buttock, unstageable Code(s): L89.309 - Pressure ulcer of unspecified buttock, unspecified stage Status: Acute (7) Chronic anemia: Code(s): D64.9 - Anemia, unspecified Status: Chronic (8) Hypertension: Qualifiers: Hypertension type: primary hypertension Qualified Code(s): I10 - Essential (primary) hypertension Code(s): I10 - Essential (primary) hypertension Status: Chronic Plan 64 y/o F with PMH of dementia, chronic anemia, DVT, GERD, HLD, HTN, ulcerative colitis, and neurogenic bladder with chronic indwelling White presents here with coffee-ground emesis and diarrhea. The patient presents here from [facility] via EMS for further evaluation of coffee-ground emesis and diarrhea. Onset of nausea, vomiting, and diarrhea was last night. She had large volumes of liquid stool in the ED, Hemoccult negative. She endorses associated abdominal achiness and fatigue. Denies fever, chills, body aches, chest pain, shortness of breath, dizziness. No further history available, patient poor historian. Initial VS at presentation: HR 125, RR 22, 110/49, and 100% on RA. ED workup showed: WBC 15.3, hemoglobin 8.3 (previously 8.2 in 2020), normal coags, sodium 133, creatinine 1.60 and GFR 32 (previously 1.1 and GFR 50 in 2020), lactic 2.0, calcium 7.9 (corrected to 8.3 due to albumin), UA suggestive of UTI (may be contaminant), C diff negative, viral PCR negative. CT abdomen/pelvis showed a high-grade bowel obstruction secondary to fecal impaction with mass effect on the distal ureters causing bilateral hydroureteronephrosis. NG tube has been placed. General surgery has been noted fecal impaction rectum status post manual disimpaction in the ED followed by suds enema. Now having diarrhea.ng now removed and started on oral diet Diarrhea stercoral colitis. IV Zosyn medically Metabolic acidosis worsened anion gap switched to bicarb gtt which will be switched back to ns this am anemia: no signs of bleeding. transfusion to keep Hb > 7 possible transfusion reaction: likely with hypotension. transfusion workup. currently new blood cross match in process hypokalemia replace and monitor bilateral hydronephrosis due to mass effect on distal ureter by fecal impaction. Recheck ultrasound to re-evaluate this eventually UTI on Zosyn follow urine culture Chronic White catheter Neurogenic bladder History of ulcerative colitis GERD Hypertension Hyperlipidemia History of DVT Chronic anemia Dementia Diet: NPO GI Prophylaxis: Pantoprazole DVT Prophylaxis: SCDs Lines: Peripheral Code Status: Full code Subjective Date/time seen: 09/18/24 14:32 Interval history: overnight events noted, reveiwed with nursing staff. hypotensive and required ivf bolus overnight. patient labs with hb down to 6.2. getting transfusion, after which she became hypotensive and mild fever. she has been moved to icu. received some ivf bolus. Review of Systems Review of Systems: All systems reviewed & are unremarkable except as noted in HPI and below (Limited, poor historian) Exam Narrative: APPEARANCE: Cachectic and contracted not in acute distress HEAD: normocephalic, atraumatic. EYES: PERRLA/EOMI, conjunctivae clear. NOSE: Normal no drainage NECK: Supple. No adenopathy, no masses. RESPIRATORY: Airway patent, respirations nonlabored. Clear to auscultation bilaterally, no rales, rhonchi, wheezing. CARDIOVASCULAR: Regular rate and rhythm without murmurs rubs or gallops. ABDOMINAL: Distended abdomen non tender bowel sounds normoactive MUSCULOSKELETAL: Moves all extremities. Strength/ROM intact, No edema, No calf tenderness. NEURO: Alert. Cranial nerves II through XII intact. SKIN: Warm, dry. Normal Color Objective Data Vital Signs Vital Signs: Vital Signs - 24 hr 09/17/24 15:48 09/17/24 16:00 09/17/24 16:00 Temperature 98.5 F Pulse Rate 95 88 Respiratory Rate 20 Blood Pressure 116/62 Pulse Oximetry 97 99 Oxygen Delivery Room Air 09/17/24 18:00 09/17/24 19:02 09/17/24 20:00 Temperature 98.3 F Pulse Rate 84 93 83 Respiratory Rate 22 H Blood Pressure 97/43 L Pulse Oximetry 99 Oxygen Delivery 09/17/24 21:15 09/17/24 22:00 09/17/24 23:39 Temperature 98.1 F Pulse Rate 86 80 Respiratory Rate 20 Blood Pressure 86/44 L Pulse Oximetry 98 Oxygen Delivery Room Air 09/17/24 23:56 09/18/24 00:00 09/18/24 00:00 Temperature Pulse Rate 85 Respiratory Rate Blood Pressure 88/54 L Pulse Oximetry Oxygen Delivery Room Air 09/18/24 02:00 09/18/24 02:10 09/18/24 02:30 Temperature Pulse Rate 68 Respiratory Rate Blood Pressure 87/48 L 95/44 L Pulse Oximetry Oxygen Delivery 09/18/24 04:00 09/18/24 04:20 09/18/24 04:20 Temperature 98.0 F Pulse Rate 64 73 Respiratory Rate 20 Blood Pressure 101/52 L Pulse Oximetry 98 Oxygen Delivery Room Air 09/18/24 06:00 09/18/24 07:39 09/18/24 08:00 Temperature 97.7 F Pulse Rate 89 74 80 Respiratory Rate 20 Blood Pressure 104/50 L Pulse Oximetry 100 Oxygen Delivery 09/18/24 08:00 09/18/24 08:47 09/18/24 09:10 Temperature 97.5 F L 99.4 F Pulse Rate 72 81 Respiratory Rate 20 20 Blood Pressure 94/47 L 103/48 L Pulse Oximetry 99 99 99 Oxygen Delivery Room Air 09/18/24 09:39 09/18/24 09:46 09/18/24 10:00 Temperature 98.5 F 98.5 F Pulse Rate 81 81 87 Respiratory Rate 20 20 Blood Pressure 99/62 L 99/32 L Pulse Oximetry 99 99 Oxygen Delivery 09/18/24 14:16 Temperature Pulse Rate 68 Respiratory Rate 20 Blood Pressure Pulse Oximetry 95 Oxygen Delivery Room Air Intake/Output Intake/Output: Intake & Output 09/15/24 09/16/24 09/17/24 09/18/24 23:59 23:59 23:59 23:59 Intake Total 1000 3770 2736 Output Total 202 1652 650 Balance 798 2118 2086 Meds/Results Medications: Active Medications Generic Name Dose Route Start Last Admin Trade Name Freq PRN Reason Stop Dose Admin Acetaminophen 650 mg 09/16/24 17:01 09/18/24 11:49 Acetaminophen Elixir 325 Mg/10.15 Ml Udc FEED TUBE 650 mg Q6H PRN Administration Mild Pain (1-3) or Fever Docusate Sodium 100 mg 09/16/24 21:00 09/18/24 11:47 Docusate Sodium Liq 100 Mg/10 Ml Udc FEED TUBE 100 mg Q12HR SONIA Administration Piperacillin/Tazobactam/Dextrose 3.375 gm in 50 mls @ 100 mls/hr 09/16/24 23:00 09/18/24 11:56 Zosyn 3.375 Gm/Ns 50 Ml IVPB 100 mls/hr Q6HR SONIA Administration Phenylephrine HCl 50 mg/ 250 ml in 250 mls @ 12 mls/hr 09/18/24 10:20 Dextrose IV CONT .[id number] SONIA Protocol 40 MCG/MIN Potassium Chloride/Dextrose/Sod Cl 1,000 mls @ 75 mls/hr 09/18/24 10:20 09/18/24 11:46 Kcl 20 Meq/D5/0.45% Sod Chl IV CONT 75 mls/hr .[id number] SONIA Administration Albumin Human 100 mls @ 60 mls/hr 09/18/24 12:00 09/18/24 11:54 Albutein IVPB 09/19/24 07:39 60 mls/hr Q6HR SONIA Administration Sodium Chloride 250 mls @ 30 mls/hr 09/18/24 11:37 Normal Saline Iv IV CONT 09/18/24 19:56 .[id number] STA Polyethylene Glycol 17 gm 09/19/24 09:00 Polyethylene Glycol 3350 17 Gm Powd.Pack PO QAM SONIA Potassium Bicarbonate 50 meq 09/18/24 16:00 Potassium Bicarbonate 25 Meq Tabef PO 09/18/24 16:01 ONCE ONE Sodium Chloride 10 ml 09/18/24 14:00 Central Line Flush IV PUSH Q8HR SONIA Sodium Chloride 10 ml 09/18/24 10:48 Central Line Flush IV PUSH PRN PRN with TPN bag changes Sodium Chloride 20 ml 09/18/24 10:48 Central Line Flush IV PUSH PRN PRN after blood draws Radiology Results: ITS Impressions Abdomen/Pelvis CT 09/16/24 13:53 IMPRESSION: High-grade bowel obstruction secondary to fecal impaction with mass effect on the distal ureters causing bilateral hydroureteronephrosis. Abdomen X-Ray 09/17/24 08:28 Impression: 1: Moderate colonic and rectal fecal loading. Chest X-Ray 09/18/24 11:10 IMPRESSION: 1. Right upper extremity PICC line tip at the superior cavoatrial junction. 2. Mild discoid atelectasis at the left lung base. No other acute cardiopulmonary disease. Labs Labs: Laboratory Results - last 24 hr 09/16/24 09/17/24 09/17/24 14:14 18:27 18:30 WBC RBC Hgb Hct MCV MCH MCHC RDW Plt Count MPV Immature Gran % (Auto) Neut % (Auto) Lymph % (Auto) [place] % (Auto) Eos % (Auto) Baso % (Auto) Lymph # (Auto) [place] # (Auto) Eos # (Auto) Baso # (Auto) Abs Immat Gran (auto) Absolute Neuts (auto) Absolute Nucleated RBC Nucleated RBC % Sodium 140 Potassium 2.4 L* Chloride 111 H Carbon Dioxide 17 L Anion Gap 12 BUN 27 H Creatinine 1.53 H Estim Creat Clear Calc 25 Estimated GFR 34 L Glucose 159 H Lactic Acid Calcium 8.0 L Magnesium 1.6 Total Bilirubin Post-Trans Total Bili AST ALT Alkaline Phosphatase Total Protein Albumin Procalcitonin Ur Blood, Post-Transfus Post-Trnsf Ur Hematuria Blood Type O Positive Antibody Screen Negative Crossmatch See Detail 09/18/24 09/18/24 09/18/24 04:13 04:41 10:17 WBC 5.4 RBC 2.16 L Hgb 6.2 L* Hct 19.7 L* MCV 91.2 MCH 28.7 MCHC 31.5 L RDW 15.7 H Plt Count 156 MPV 9.5 Immature Gran % (Auto) 0.7 H Neut % (Auto) 70.7 Lymph % (Auto) 9.7 L [place] % (Auto) 15.9 H Eos % (Auto) 2.1 Baso % (Auto) 0.9 Lymph # (Auto) 0.52 L [place] # (Auto) 0.9 H Eos # (Auto) 0.1 Baso # (Auto) 0.1 Abs Immat Gran (auto) 0.04 H Absolute Neuts (auto) 3.8 Absolute Nucleated RBC 0.000 Nucleated RBC % 0.0 Sodium 141 Potassium 3.0 L Chloride 108 H Carbon Dioxide 22 Anion Gap 11 BUN 21 H Creatinine 1.45 H Estim Creat Clear Calc 26 Estimated GFR 36 L Glucose 115 H Lactic Acid Calcium 7.6 L Magnesium 1.5 L Total Bilirubin 0.2 Post-Trans Total Bili AST 49 H ALT 42 H Alkaline Phosphatase 156 H Total Protein 5.0 L Albumin 2.7 L Procalcitonin 0.3 Ur Blood, Post-Transfus 3+ H Post-Trnsf Ur Hematuria >75 H Blood Type Antibody Screen Crossmatch 09/18/24 09/18/24 10:19 11:42 WBC RBC Hgb Hct MCV MCH MCHC RDW Plt Count MPV Immature Gran % (Auto) Neut % (Auto) Lymph % (Auto) [place] % (Auto) Eos % (Auto) Baso % (Auto) Lymph # (Auto) [place] # (Auto) Eos # (Auto) Baso # (Auto) Abs Immat Gran (auto) Absolute Neuts (auto) Absolute Nucleated RBC Nucleated RBC % Sodium Potassium Chloride Carbon Dioxide Anion Gap BUN Creatinine Estim Creat Clear Calc Estimated GFR Glucose Lactic Acid 1.0 Calcium Magnesium Total Bilirubin Post-Trans Total Bili 0.4 AST ALT Alkaline Phosphatase Total Protein Albumin Procalcitonin Ur Blood, Post-Transfus Post-Trnsf Ur Hematuria Blood Type Antibody Screen Crossmatch
[2024-09-18 14:42] LABS: TXRXN Occult Blood Urine 4 Hr 2+ mg/dL (Negative); TXRXN RBC Urine 4 Hour 21-50 /hpf (0-2)
[2024-09-18] MEDS: POTASSIUM BICARBONATE 25 MEQ TABEF 50 MEQ PO (15:45)
[2024-09-18 15:46] LABS: Total Bilirubin 5hr Post TX RX 0.2 mg/dL (0.2-1.3)
[2024-09-18 17:03] LABS: MRSA (PCR) NOT DETECTED (NOT DETECTE)
[2024-09-18 19:09] LABS: Anion Gap 12 mmol/L (4-12); Blood Urea Nitrogen 15 mg/dL (7-17); Calcium 7.7 mg/dL (8.4-10.2); Carbon Dioxide 21 mmol/L (22-30); Chloride 106 mmol/L (98-107); Estimated CRCL calculation 32 ml/min; Estimated Glomerular Filt Rate 47; Glucose 127 mg/dL (65-110); Magnesium 1.9 mg/dL (1.6-2.3); Potassium 3.7 mmol/L (3.4-5.0); Sodium 139 mmol/L (137-145)
--- NOTE | 2024-09-18 20:05 | PC.NURSE ---
DR Watts called to verify order for follow up CBC and transfusion parameters. Electrolytes reviewed and potassium bicarb also ordered.
[2024-09-18 20:28] LABS: Basophils Percent Auto 0.7 % (0.2-1.2); Eosinophils Absolute Auto 0.2 K/mm3 (0-0.3); Eosinophils Percent Auto 3.3 % (0-4.4); Hematocrit 23.2 % (37.0-47.0); Hemoglobin 7.3 g/dL (12.0-15.0); Immature Granulocyte Absolute 0.02 K/mm3 (0.00-0.031); Immature Granulocyte Percent A 0.4 % (0-0.5); Lymphocytes Absolute Auto 0.53 K/mm3 (0.9-3.2); Lymphocytes Percent Auto 11.7 % (18.3-44.2); Mean Corpuscular HGB Conc 31.5 g/dl (32-36); Mean Corpuscular Hemoglobin 28.9 pg (26-34); Mean Corpuscular Volume 91.7 fl (80-100); Mean Platelet Volume 9.6 fl (7.4-10.4); Monocytes Absolute Auto 0.8 K/mm3 (0.1-0.6); Monocytes Percent Auto 18.1 % (2.6-8.5); Neutrophils Percent Auto 65.8 % (45.5-73.1); Platelet Count Result 133 k/mm3 (150-375); Red Blood Count 2.53 M/mm3 (4.2-5.4); Red Cell Distribution Width 15.1 % (11.5-14.5); White Blood Count 4.5 K/mm3 (4.5-10.0)
[2024-09-18] MEDS: POTASSIUM BICARBONATE 25 MEQ TABEF PO (20:47)
[2024-09-19] VITALS (11 sets, daily range): BP systolic 100–131; BP diastolic 62–78; PULSE 64–94; RESP 18–30; TEMP 37.1–37.2; O2SAT 95–97
[2024-09-19] MEDS: ALBUMIN HUMAN 25% 25 GM/100 ML 100 ML IVPB ×2 (00:24→06:00)
[2024-09-19] MEDS: KCL 20 MEQ/D5/0.45% SOD CHL 1,000 ML 75 ML IV CONT (02:59)
[2024-09-19] MEDS: PIPERACILLN/TAZ 3.375GM/NS50ML 3.375 GM/50 ML BAG IVPB ×3 (05:21→17:23)
[2024-09-19 05:34] LABS: Hematocrit 24.6 % (37.0-47.0); Hemoglobin 7.8 g/dL (12.0-15.0); Mean Corpuscular HGB Conc 31.7 g/dl (32-36); Mean Corpuscular Volume 91.4 fl (80-100); Mean Platelet Volume 9.9 fl (7.4-10.4); Platelet Count Result 144 k/mm3 (150-375); Red Blood Count 2.69 M/mm3 (4.2-5.4); Red Cell Distribution Width 15.5 % (11.5-14.5); White Blood Count 4.5 K/mm3 (4.5-10.0)
[2024-09-19 05:59] LABS: Alanine Aminotransferase 26 U/L (6-35); Albumin Level 3.3 g/dL (3.5-5.1); Alkaline Phosphatase 107 U/L (38-126); Anion Gap 8 mmol/L (4-12); Aspartate Amino Transferase 27 U/L (14-36); Bilirubin,Total 0.7 mg/dL (0.2-1.3); Blood Urea Nitrogen 14 mg/dL (7-17); Carbon Dioxide 23 mmol/L (22-30); Chloride 106 mmol/L (98-107); Estimated CRCL calculation 41 ml/min; Estimated Glomerular Filt Rate 52; Glucose 83 mg/dL (65-110); Magnesium 1.9 mg/dL (1.6-2.3); Potassium 3.7 mmol/L (3.4-5.0); Sodium 137 mmol/L (137-145)
[2024-09-19] MEDS: CENTRAL LINE FLUSH 10 ML IV PUSH ×3 (06:06→20:45)
--- NOTE | 2024-09-19 08:17 | WPDINTPN ---
Progress Note: A&P Assessment and Plan (1) Hypotension: Code(s): I95.9 - Hypotension, unspecified Status: Acute Assessment and Plan: Hypotension secondary to combination of hypovolemia and possible sepsis from UTI Transferred to ICU and was given IV fluids were never required any vasopressors Blood pressures remain stable over last 24 hours. 25% Albumin (2) Sepsis: Qualifiers: Sepsis type: sepsis due to unspecified organism Sepsis acute organ dysfunction status: with acute organ dysfunction Severe sepsis acute organ dysfunction type: acute renal failure Acute renal failure type: unspecified Severe sepsis shock status: without septic shock Qualified Code(s): A41.9 - Sepsis, unspecified organism; R65.20 - Severe sepsis without septic shock; N17.9 - Acute kidney failure, unspecified Code(s): A41.9 - Sepsis, unspecified organism Status: Acute Assessment and Plan: Patient has a catheter related urinary tract infection Stool is negative for C diff Blood cultures have been ordered and pending. Will check urine culture Catheter has been changed Normal lactic acid and low procalcitonin level Continue Zosyn She does have superficial wounds on the both buttocks wa-s local wound care (3) Acute renal failure: Qualifiers: Acute renal failure type: unspecified Qualified Code(s): N17.9 - Acute kidney failure, unspecified Code(s): N17.9 - Acute kidney failure, unspecified Status: Acute Assessment and Plan: Secondary to hypovolemia and obstruction leading to bilateral hydroureternephrosis Obstruction appears to have been resolved as patient had stool disembarked. Urine output has improved Creatinine is improving and close to normal now Continue IV fluid Monitor urine output electrolytes and creatinine Will obtain a ultrasound tomorrow (4) Anemia: Code(s): D64.9 - Anemia, unspecified Status: Acute Assessment and Plan: Patient has chronic which has now dropped to below 7 likely secondary to hemodilution Patient had 2 units of PRBC transfusion ordered but had increase in temperature after initiation of 1st unit Patient was evaluated for blood transfusion reaction and then transfuse 2nd unit. Hemoglobin now stable Hold anticoagulation and monitor hemoglobin (5) Dehydration: Code(s): E86.0 - Dehydration Status: Acute Assessment and Plan: Patient has received good amount of crystalloids. Discontinue further crystalloids. Continue Albumin Patient now has diet ordered her p.o. intake is limited (6) Chronic indwelling White catheter: Code(s): Z97.8 - Presence of other specified devices Status: Acute Assessment and Plan: Chronic indwelling White for neurogenic bladder White has been changed to temperature sensing White (7) Catheter-associated urinary tract infection: Qualifiers: Encounter type: initial encounter Indwelling urinary catheter type: indwelling urethral catheter Qualified Code(s): T83.511A - Infection and inflammatory reaction due to indwelling urethral catheter, initial encounter; N39.0 - Urinary tract infection, site not specified Code(s): T83.511A - Infection and inflammatory reaction due to indwelling urethral catheter, initial encounter; N39.0 - Urinary tract infection, site not specified Status: Acute Assessment and Plan: See above (8) Pressure ulcer of buttock: Qualifiers: Pressure injury stage: unstageable Laterality: unspecified laterality Qualified Code(s): L89.300 - Pressure ulcer of unspecified buttock, unstageable Code(s): L89.309 - Pressure ulcer of unspecified buttock, unspecified stage Status: Acute Assessment and Plan: Wound appears superficial on exam. Local wound care General surgery recommends diverting colostomy the patient is not agreeable (9) Electrolyte abnormality: Code(s): E87.8 - Other disorders of electrolyte and fluid balance, not elsewhere classified Status: Acute Assessment and Plan: Potassium phosphate replacement ordered. Plan DVT prophylaxis -SCDs. Patient has also has a IVC filter. Holding anticoagulation due to anemia Stress ulcer prophylaxis -on PPI Nutrition -diet ordered Code Status - Full Code Transfer out of ICU today Subjective Date/time seen: 09/19/24 08:17 Review of Systems Review of Systems: All systems reviewed & are unremarkable except as noted in HPI and below (Limited, poor historian) Exam Narrative: General: Pt is alert awake and in NAD Lungs/Chest: Trachea central Clear BS B/L, No crackles or wheezing. Cardiac: RRR. Normal S1 S2. No murmurs Circulation: Pedal pulses are intact and symmetrical. Abdomen: Normal bowel sounds.. Soft. NT. ND. Obese Extremities: Mild bilateral pitting edema : White in place Neurologic: AOx 3, paraplegia, does have touch sensation in the feet but unable to move legs, contractures in legs and left up hand, able to follow commands with both hand PERRL slurred speech Skin: Superficial decubitus ulcer on on both buttocks Objective Data Vital Signs Vital Signs: Vital Signs - 24 hr 09/18/24 08:47 09/18/24 09:10 09/18/24 09:39 Temperature 36.4 C L 37.4 C 36.9 C Pulse Rate 72 81 81 Respiratory Rate 20 20 20 Blood Pressure 94/47 L 103/48 L 99/62 L Pulse Oximetry 99 99 99 Oxygen Delivery 09/18/24 09:46 09/18/24 10:00 09/18/24 10:30 Temperature 36.9 C Pulse Rate 81 87 Respiratory Rate 20 Blood Pressure 99/32 L Pulse Oximetry 99 100 Oxygen Delivery Room Air 09/18/24 12:00 09/18/24 12:00 09/18/24 12:00 Temperature 37.6 C Pulse Rate 102 H 78 Respiratory Rate 25 H Blood Pressure 103/60 Pulse Oximetry 97 91 Oxygen Delivery Room Air 09/18/24 14:00 09/18/24 14:16 09/18/24 16:00 Temperature 37.5 C Pulse Rate 81 68 77 Respiratory Rate 20 26 H Blood Pressure 114/56 L Pulse Oximetry 95 94 Oxygen Delivery Room Air 09/18/24 16:00 09/18/24 16:00 09/18/24 16:40 Temperature 37.5 C Pulse Rate 80 85 Respiratory Rate 26 H Blood Pressure 109/60 Pulse Oximetry 94 91 Oxygen Delivery Room Air 09/18/24 16:56 09/18/24 17:15 09/18/24 17:30 Temperature 37.6 C 37.6 C 37.6 C Pulse Rate 84 87 90 Respiratory Rate 27 H 29 H 26 H Blood Pressure 112/54 L 106/62 103/66 Pulse Oximetry 94 93 94 Oxygen Delivery 09/18/24 17:45 09/18/24 17:56 09/18/24 18:00 Temperature 37.6 C H 37.6 C H Pulse Rate 86 91 97 Respiratory Rate 23 H 28 H Blood Pressure 112/60 116/75 Pulse Oximetry 94 94 Oxygen Delivery 09/18/24 18:15 09/18/24 18:30 09/18/24 18:45 Temperature 37.6 C H 37.7 C H 37.7 C H Pulse Rate 88 86 87 Respiratory Rate 29 H 34 H 34 H Blood Pressure 112/70 109/58 L 107/60 Pulse Oximetry 93 93 94 Oxygen Delivery 09/18/24 18:56 09/18/24 20:00 09/18/24 20:00 Temperature 37.6 C 37.6 C H Pulse Rate 90 83 87 Respiratory Rate 33 H 33 H Blood Pressure 105/54 L 110/61 Pulse Oximetry 95 93 Oxygen Delivery 09/18/24 20:40 09/18/24 21:14 09/18/24 22:24 Temperature Pulse Rate 83 70 Respiratory Rate 30 H 18 Blood Pressure Pulse Oximetry 95 93 Oxygen Delivery Room Air Room Air 09/19/24 00:00 09/19/24 00:00 09/19/24 00:40 Temperature 37.2 C Pulse Rate 76 76 Respiratory Rate 20 Blood Pressure 100/64 Pulse Oximetry 95 97 Oxygen Delivery Room Air 09/19/24 02:15 09/19/24 04:00 09/19/24 04:00 Temperature 37.1 C Pulse Rate 81 64 64 Respiratory Rate 20 Blood Pressure 110/62 Pulse Oximetry 96 Oxygen Delivery 09/19/24 04:00 09/19/24 06:09 Temperature Pulse Rate 82 Respiratory Rate Blood Pressure Pulse Oximetry 97 Oxygen Delivery Room Air Intake/Output Intake/Output: Intake & Output 09/16/24 09/17/24 09/18/24 09/19/24 23:59 23:59 23:59 23:59 Intake Total 1000 3770 4063 1498.8 Output Total 202 1652 1075 825 Balance 798 2118 2988 673.8 Meds/Results Medications: Active Medications Generic Name Dose Route Start Last Admin Trade Name Freq PRN Reason Stop Dose Admin Acetaminophen 650 mg 09/16/24 17:01 09/18/24 11:49 Acetaminophen Elixir 325 Mg/10.15 Ml Udc FEED TUBE 650 mg Q6H PRN Administration Mild Pain (1-3) or Fever Docusate Sodium 100 mg 09/16/24 21:00 09/18/24 20:47 Docusate Sodium Liq 100 Mg/10 Ml Udc FEED TUBE 100 mg Q12HR SONIA Administration Piperacillin/Tazobactam/Dextrose 3.375 gm in 50 mls @ 100 mls/hr 09/16/24 23:00 09/19/24 06:07 Zosyn 3.375 Gm/Ns 50 Ml IVPB Infused Q6HR SONIA Infusion Potassium Phosphate 20 mmol/ 256.6667 mls @ 64.167 mls/hr 09/19/24 09:00 Sodium Chloride IVPB 09/19/24 12:59 ONCE ONE Polyethylene Glycol 17 gm 09/19/24 09:00 Polyethylene Glycol 3350 17 Gm Powd.Pack PO QAM SONIA Sodium Chloride 10 ml 09/18/24 14:00 09/19/24 06:06 Central Line Flush IV PUSH 10 ml Q8HR SONIA Administration Sodium Chloride 10 ml 09/18/24 10:48 Central Line Flush IV PUSH PRN PRN with TPN bag changes Sodium Chloride 20 ml 09/18/24 10:48 Central Line Flush IV PUSH PRN PRN after blood draws Radiology Results: ITS Impressions Abdomen/Pelvis CT 09/16/24 13:53 IMPRESSION: High-grade bowel obstruction secondary to fecal impaction with mass effect on the distal ureters causing bilateral hydroureteronephrosis. Abdomen X-Ray 09/17/24 08:28 Impression: 1: Moderate colonic and rectal fecal loading. Chest X-Ray 09/18/24 11:10 IMPRESSION: 1. Right upper extremity PICC line tip at the superior cavoatrial junction. 2. Mild discoid atelectasis at the left lung base. No other acute cardiopulmonary disease. Labs Labs: Laboratory Results - last 24 hr 09/16/24 09/18/24 09/18/24 14:14 10:17 10:19 WBC RBC Hgb Hct MCV MCH MCHC RDW Plt Count MPV Immature Gran % (Auto) Neut % (Auto) Lymph % (Auto) [place] % (Auto) Eos % (Auto) Baso % (Auto) Lymph # (Auto) [place] # (Auto) Eos # (Auto) Baso # (Auto) Abs Immat Gran (auto) Absolute Neuts (auto) Absolute Nucleated RBC Nucleated RBC % Sodium Potassium Chloride Carbon Dioxide Anion Gap BUN Creatinine Estim Creat Clear Calc Estimated GFR Glucose Lactic Acid Calcium Phosphorus Magnesium Total Bilirubin Post-Trans Total Bili 0.4 AST ALT Alkaline Phosphatase Total Protein Albumin Procalcitonin 0.3 Ur Blood, Post-Transfus 3+ H Post-Trnsf Ur Hematuria >75 H Nasal MRSA (PCR) Blood Type O Positive Antibody Screen Negative Crossmatch See Detail Pre-Trans Antibody Scrn Negative Post-Trans Antibody Scrn Negative 09/18/24 09/18/24 09/18/24 11:42 14:32 15:28 WBC RBC Hgb Hct MCV MCH MCHC RDW Plt Count MPV Immature Gran % (Auto) Neut % (Auto) Lymph % (Auto) [place] % (Auto) Eos % (Auto) Baso % (Auto) Lymph # (Auto) [place] # (Auto) Eos # (Auto) Baso # (Auto) Abs Immat Gran (auto) Absolute Neuts (auto) Absolute Nucleated RBC Nucleated RBC % Sodium Potassium Chloride Carbon Dioxide Anion Gap BUN Creatinine Estim Creat Clear Calc Estimated GFR Glucose Lactic Acid 1.0 Calcium Phosphorus Magnesium Total Bilirubin Post-Trans Total Bili 0.2 AST ALT Alkaline Phosphatase Total Protein Albumin Procalcitonin Ur Blood, Post-Transfus 2+ H Post-Trnsf Ur Hematuria 21-50 H Nasal MRSA (PCR) Not detected Blood Type Antibody Screen Crossmatch Pre-Trans Antibody Scrn Post-Trans Antibody Scrn 09/18/24 09/18/24 09/19/24 18:51 20:22 05:19 WBC 4.5 4.5 RBC 2.53 L 2.69 L Hgb 7.3 L 7.8 L Hct 23.2 L 24.6 L MCV 91.7 91.4 MCH 28.9 29.0 MCHC 31.5 L 31.7 L RDW 15.1 H 15.5 H Plt Count 133 L 144 L MPV 9.6 9.9 Immature Gran % (Auto) 0.4 Neut % (Auto) 65.8 Lymph % (Auto) 11.7 L [place] % (Auto) 18.1 H Eos % (Auto) 3.3 Baso % (Auto) 0.7 Lymph # (Auto) 0.53 L [place] # (Auto) 0.8 H Eos # (Auto) 0.2 Baso # (Auto) 0.0 Abs Immat Gran (auto) 0.02 Absolute Neuts (auto) 3.0 Absolute Nucleated RBC 0.000 Nucleated RBC % 0.0 Sodium 139 137 Potassium 3.7 3.7 Chloride 106 106 Carbon Dioxide 21 L 23 Anion Gap 12 8 BUN 15 D 14 Creatinine 1.16 H 1.05 H Estim Creat Clear Calc 32 41 Estimated GFR 47 L 52 L Glucose 127 H 83 Lactic Acid Calcium 7.7 L 8.0 L Phosphorus 2.0 L Magnesium 1.9 1.9 Total Bilirubin 0.7 Post-Trans Total Bili AST 27 ALT 26 Alkaline Phosphatase 107 Total Protein 5.0 L Albumin 3.3 L Procalcitonin Ur Blood, Post-Transfus Post-Trnsf Ur Hematuria Nasal MRSA (PCR) Blood Type Antibody Screen Crossmatch Pre-Trans Antibody Scrn Post-Trans Antibody Scrn Quality VTE Prophylaxis VTE prophylaxis: mechanical ordered
[2024-09-19] MEDS: POTASSIUM PHOS,M-BASIC-D-BASIC 20 MMOL in SODIUM CHLORIDE 0.9% IV 250 ML 64.17 MMOL IVPB (08:40)
[2024-09-19] MEDS: DOCUSATE SODIUM LIQ 100 MG/10 ML UDC FEED TUBE (08:46)
[2024-09-19] MEDS: polyethylene glycoL 3350 17 GM POWD.PACK PO (08:46)
[2024-09-19] MEDS: ACETAMINOPHEN ELIXIR 325 MG/10.15 ML UDC 650 MG FEED TUBE ×2 (10:32→19:10)
--- NOTE | 2024-09-19 10:56 | PC.NURSE ---
This RN gave report to 2nd medical RN, Jarocho. The patient transferred to room 244.
--- NOTE | 2024-09-19 13:14 | P.PNIM_ITS ---
Progress Note: A&P Assessment and Plan (1) Sepsis: Qualifiers: Acute renal failure type: unspecified Sepsis acute organ dysfunction status: with acute organ dysfunction Sepsis type: sepsis due to unspecified or ganism Severe sepsis acute organ dysfunction type: acute renal failure Severe sepsis shock status: without septic shock Qualified Code(s): A41.9 - Sepsis, unspecified organism; R65.20 - Severe sepsis without septic shock; N17.9 - Acute kidney failure, unspecified Code(s): A41.9 - Sepsis, unspecified organism Status: Acute (2) Fecal impaction: Code(s): K56.41 - Fecal impaction Status: Acute (3) Bowel obstruction: Qualifiers: Intestinal obstruction type: fecal impaction Qualified Code(s): K56.41 - Fecal impaction Code(s): K56.609 - Unspecified intestinal obstruction, unspecified as to partial versus complete obstruction Status: Acute (4) Acute renal failure: Qualifiers: Acute renal failure type: unspecified Qualified Code(s): N17.9 - Acute kidney failure, unspecified Code(s): N17.9 - Acute kidney failure, unspecified Status: Acute (5) Catheter-associated urinary tract infection: Qualifiers: Encounter type: initial encounter Indwelling urinary catheter type: indwelling urethral catheter Qualified Code(s): T83.511A - Infection and inflammatory reaction due to indwelling urethral catheter, initial encounter; N39.0 - Urinary tract infection, site not specified Code(s): T83.511A - Infection and inflammatory reaction due to indwelling urethral catheter, initial encounter; N39.0 - Urinary tract infection, site not specified Status: Acute (6) Pressure ulcer of buttock: Qualifiers: Laterality: unspecified laterality Pressure injury stage: unstageable Qualified Code(s): L89.300 - Pressure ulcer of unspecified buttock, unstageable Code(s): L89.309 - Pressure ulcer of unspecified buttock, unspecified stage Status: Acute (7) Chronic anemia: Code(s): D64.9 - Anemia, unspecified Status: Chronic (8) Hypertension: Qualifiers: Hypertension type: primary hypertension Qualified Code(s): I10 - Essential (primary) hypertension Code(s): I10 - Essential (primary) hypertension Status: Chronic Plan 64 y/o F with PMH of dementia, chronic anemia, DVT, GERD, HLD, HTN, ulcerative colitis, and neurogenic bladder with chronic indwelling White presents here with coffee-ground emesis and diarrhea. The patient presents here from [facility] via EMS for further evaluation of coffee-ground emesis and diarrhea. Onset of nausea, vomiting, and diarrhea was last night. She had large volumes of liquid stool in the ED, Hemoccult negative. She endorses associated abdominal achiness and fatigue. Denies fever, chills, body aches, chest pain, shortness of breath, dizziness. No further history available, patient poor historian. Initial VS at presentation: HR 125, RR 22, 110/49, and 100% on RA. ED workup showed: WBC 15.3, hemoglobin 8.3 (previously 8.2 in 2020), normal coags, sodium 133, creatinine 1.60 and GFR 32 (previously 1.1 and GFR 50 in 2020), lactic 2.0, calcium 7.9 (corrected to 8.3 due to albumin), UA suggestive of UTI (may be contaminant), C diff negative, viral PCR negative. CT abdomen/pelvis showed a high-grade bowel obstruction secondary to fecal impaction with mass effect on the distal ureters causing bilateral hydroureteronephrosis. NG tube has been placed. General surgery has been noted fecal impaction rectum status post manual disimpaction in the ED followed by suds enema. Now having diarrhea. ng now removed and started on oral diet Diarrhea stercoral colitis. IV Zosyn medically Metabolic acidosis worsened anion gap switched to bicarb gtt which will be switched back to ns. anemia: no signs of bleeding. transfusion to keep Hb > 7. H&H remained stable now post transfusion of 2 units PRBC possible transfusion reaction: likely with hypotension. transfusion workup. Subsequently got transfused hypokalemia replace and monitor bilateral hydronephrosis due to mass effect on distal ureter by fecal impaction. Recheck ultrasound to re-evaluate planned UTI on Zosyn follow urine culture Chronic White catheter Neurogenic bladder History of ulcerative colitis GERD Hypertension Hyperlipidemia History of DVT Chronic anemia Dementia Diet: NPO GI Prophylaxis: Pantoprazole DVT Prophylaxis: SCDs Lines: Peripheral Code Status: Full code Subjective Date/time seen: 09/19/24 13:14 Interval history: No overnight events. Patient transferred out of the ICU. Blood pressure remained stable. No new complaints Review of Systems Review of Systems: All systems reviewed & are unremarkable except as noted in HPI and below (Limited, poor historian) Exam Narrative: General: Pt is alert awake and in NAD Lungs/Chest: Trachea central Clear BS B/L, No crackles or wheezing. Cardiac: RRR. Normal S1 S2. No murmurs Circulation: Pedal pulses are intact and symmetrical. Abdomen: Normal bowel sounds.. Soft. NT. ND. Obese Extremities: Mild bilateral pitting edema : White in place Neurologic: AOx 3, paraplegia, does have touch sensation in the feet but unable to move legs, contractures in legs and left up hand, able to follow commands with both hand PERRL slurred speech Skin: Superficial decubitus ulcer on on both buttocks Objective Data Vital Signs Vital Signs: Vital Signs - 24 hr 09/18/24 14:00 09/18/24 14:16 09/18/24 16:00 Temperature 99.5 F Pulse Rate 81 68 77 Respiratory Rate 20 26 H Blood Pressure 114/56 L Pulse Oximetry 95 94 Oxygen Delivery Room Air 09/18/24 16:00 09/18/24 16:00 09/18/24 16:40 Temperature 99.5 F Pulse Rate 80 85 Respiratory Rate 26 H Blood Pressure 109/60 Pulse Oximetry 94 91 Oxygen Delivery Room Air 09/18/24 16:56 09/18/24 17:15 09/18/24 17:30 Temperature 99.6 F 99.6 F 99.6 F Pulse Rate 84 87 90 Respiratory Rate 27 H 29 H 26 H Blood Pressure 112/54 L 106/62 103/66 Pulse Oximetry 94 93 94 Oxygen Delivery 09/18/24 17:45 09/18/24 17:56 09/18/24 18:00 Temperature 99.7 F H 99.7 F H Pulse Rate 86 91 97 Respiratory Rate 23 H 28 H Blood Pressure 112/60 116/75 Pulse Oximetry 94 94 Oxygen Delivery 09/18/24 18:15 09/18/24 18:30 09/18/24 18:45 Temperature 99.7 F H 99.8 F H 99.8 F H Pulse Rate 88 86 87 Respiratory Rate 29 H 34 H 34 H Blood Pressure 112/70 109/58 L 107/60 Pulse Oximetry 93 93 94 Oxygen Delivery 09/18/24 18:56 09/18/24 20:00 09/18/24 20:00 Temperature 99.6 F 99.7 F H Pulse Rate 90 83 87 Respiratory Rate 33 H 33 H Blood Pressure 105/54 L 110/61 Pulse Oximetry 95 93 Oxygen Delivery 09/18/24 20:40 09/18/24 21:14 09/18/24 22:24 Temperature Pulse Rate 83 70 Respiratory Rate 30 H 18 Blood Pressure Pulse Oximetry 95 93 Oxygen Delivery Room Air Room Air 09/19/24 00:00 09/19/24 00:00 09/19/24 00:40 Temperature 99 F Pulse Rate 76 76 Respiratory Rate 20 Blood Pressure 100/64 Pulse Oximetry 95 97 Oxygen Delivery Room Air 09/19/24 02:15 09/19/24 04:00 09/19/24 04:00 Temperature 98.8 F Pulse Rate 81 64 64 Respiratory Rate 20 Blood Pressure 110/62 Pulse Oximetry 96 Oxygen Delivery 09/19/24 04:00 09/19/24 06:09 09/19/24 08:00 Temperature Pulse Rate 82 Respiratory Rate Blood Pressure Pulse Oximetry 97 97 Oxygen Delivery Room Air Room Air 09/19/24 08:00 09/19/24 08:00 09/19/24 12:00 Temperature 98.7 F Pulse Rate 84 83 94 Respiratory Rate 30 H Blood Pressure 111/78 Pulse Oximetry 97 Oxygen Delivery Intake/Output Intake/Output: Intake & Output 09/16/24 09/17/24 09/18/24 09/19/24 23:59 23:59 23:59 23:59 Intake Total 1000 3770 4063 1908.8 Output Total 202 1652 1075 1375 Balance 798 2118 2988 533.8 Meds/Results Medications: Active Medications Generic Name Dose Route Start Last Admin Trade Name Freq PRN Reason Stop Dose Admin Acetaminophen 650 mg 09/16/24 17:01 09/19/24 10:32 Acetaminophen Elixir 325 Mg/10.15 Ml Udc FEED TUBE 650 mg Q6H PRN Administration Mild Pain (1-3) or Fever Docusate Sodium 100 mg 09/16/24 21:00 09/19/24 08:46 Docusate Sodium Liq 100 Mg/10 Ml Udc FEED TUBE 100 mg Q12HR SONIA Administration Piperacillin/Tazobactam/Dextrose 3.375 gm in 50 mls @ 100 mls/hr 09/16/24 23:00 09/19/24 11:51 Zosyn 3.375 Gm/Ns 50 Ml IVPB Infused Q6HR SONIA Infusion Polyethylene Glycol 17 gm 09/19/24 09:00 09/19/24 08:46 Polyethylene Glycol 3350 17 Gm Powd.Pack PO 17 gm QAM SONIA Administration Sodium Chloride 10 ml 09/18/24 14:00 09/19/24 06:06 Central Line Flush IV PUSH 10 ml Q8HR SONIA Administration Sodium Chloride 10 ml 09/18/24 10:48 Central Line Flush IV PUSH PRN PRN with TPN bag changes Sodium Chloride 20 ml 09/18/24 10:48 Central Line Flush IV PUSH PRN PRN after blood draws Radiology Results: ITS Impressions Abdomen/Pelvis CT 09/16/24 13:53 IMPRESSION: High-grade bowel obstruction secondary to fecal impaction with mass effect on the distal ureters causing bilateral hydroureteronephrosis. Abdomen X-Ray 09/17/24 08:28 Impression: 1: Moderate colonic and rectal fecal loading. Chest X-Ray 09/18/24 11:10 IMPRESSION: 1. Right upper extremity PICC line tip at the superior cavoatrial junction. 2. Mild discoid atelectasis at the left lung base. No other acute cardiopulmonary disease. Labs Labs: Laboratory Results - last 24 hr 09/16/24 09/18/24 09/18/24 14:14 10:19 14:32 WBC RBC Hgb Hct MCV MCH MCHC RDW Plt Count MPV Immature Gran % (Auto) Neut % (Auto) Lymph % (Auto) [place] % (Auto) Eos % (Auto) Baso % (Auto) Lymph # (Auto) [place] # (Auto) Eos # (Auto) Baso # (Auto) Abs Immat Gran (auto) Absolute Neuts (auto) Absolute Nucleated RBC Nucleated RBC % Sodium Potassium Chloride Carbon Dioxide Anion Gap BUN Creatinine Estim Creat Clear Calc Estimated GFR Glucose Calcium Phosphorus Magnesium Total Bilirubin Post-Trans Total Bili AST ALT Alkaline Phosphatase Total Protein Albumin Ur Blood, Post-Transfus 2+ H Post-Trnsf Ur Hematuria 21-50 H Nasal MRSA (PCR) Blood Type O Positive Antibody Screen Negative Crossmatch See Detail Pre-Trans Antibody Scrn Negative Post-Trans Antibody Scrn Negative 09/18/24 09/18/24 09/18/24 15:28 18:51 20:22 WBC 4.5 RBC 2.53 L Hgb 7.3 L Hct 23.2 L MCV 91.7 MCH 28.9 MCHC 31.5 L RDW 15.1 H Plt Count 133 L MPV 9.6 Immature Gran % (Auto) 0.4 Neut % (Auto) 65.8 Lymph % (Auto) 11.7 L [place] % (Auto) 18.1 H Eos % (Auto) 3.3 Baso % (Auto) 0.7 Lymph # (Auto) 0.53 L [place] # (Auto) 0.8 H Eos # (Auto) 0.2 Baso # (Auto) 0.0 Abs Immat Gran (auto) 0.02 Absolute Neuts (auto) 3.0 Absolute Nucleated RBC 0.000 Nucleated RBC % 0.0 Sodium 139 Potassium 3.7 Chloride 106 Carbon Dioxide 21 L Anion Gap 12 BUN 15 D Creatinine 1.16 H Estim Creat Clear Calc 32 Estimated GFR 47 L Glucose 127 H Calcium 7.7 L Phosphorus Magnesium 1.9 Total Bilirubin Post-Trans Total Bili 0.2 AST ALT Alkaline Phosphatase Total Protein Albumin Ur Blood, Post-Transfus Post-Trnsf Ur Hematuria Nasal MRSA (PCR) Not detected Blood Type Antibody Screen Crossmatch Pre-Trans Antibody Scrn Post-Trans Antibody Scrn 09/19/24 05:19 WBC 4.5 RBC 2.69 L Hgb 7.8 L Hct 24.6 L MCV 91.4 MCH 29.0 MCHC 31.7 L RDW 15.5 H Plt Count 144 L MPV 9.9 Immature Gran % (Auto) Neut % (Auto) Lymph % (Auto) [place] % (Auto) Eos % (Auto) Baso % (Auto) Lymph # (Auto) [place] # (Auto) Eos # (Auto) Baso # (Auto) Abs Immat Gran (auto) Absolute Neuts (auto) Absolute Nucleated RBC Nucleated RBC % Sodium 137 Potassium 3.7 Chloride 106 Carbon Dioxide 23 Anion Gap 8 BUN 14 Creatinine 1.05 H Estim Creat Clear Calc 41 Estimated GFR 52 L Glucose 83 Calcium 8.0 L Phosphorus 2.0 L Magnesium 1.9 Total Bilirubin 0.7 Post-Trans Total Bili AST 27 ALT 26 Alkaline Phosphatase 107 Total Protein 5.0 L Albumin 3.3 L Ur Blood, Post-Transfus Post-Trnsf Ur Hematuria Nasal MRSA (PCR) Blood Type Antibody Screen Crossmatch Pre-Trans Antibody Scrn Post-Trans Antibody Scrn
--- NOTE | 2024-09-19 13:16 | WPDGIPROGNO ---
Progress Note: A&P Assessment and Plan (1) Fecal impaction: Code(s): K56.41 - Fecal impaction Status: Acute Assessment and Plan: treated medically she will be a poor surgical candidate for surgery as definitive solution to prevent similar presentations diet as tolerated no pain will follow as needed (2) Acute renal failure: Qualifiers: Acute renal failure type: unspecified Qualified Code(s): N17.9 - Acute kidney failure, unspecified Code(s): N17.9 - Acute kidney failure, unspecified Status: Acute Assessment and Plan: this has improved (3) Chronic anemia: Code(s): D64.9 - Anemia, unspecified Status: Chronic Assessment and Plan: s/p blood transfusion, h/h better after transfusion no overt gib blood thinner on hold (4) Pressure ulcer of buttock: Qualifiers: Pressure injury stage: unstageable Laterality: unspecified laterality Qualified Code(s): L89.300 - Pressure ulcer of unspecified buttock, unstageable Code(s): L89.309 - Pressure ulcer of unspecified buttock, unspecified stage Status: Acute (5) Dementia: Code(s): F03.90 - Unspecified dementia, unspecified severity, without behavioral disturbance, psychotic disturbance, mood disturbance, and anxiety Status: Chronic (6) Catheter-associated urinary tract infection: Qualifiers: Encounter type: initial encounter Indwelling urinary catheter type: indwelling urethral catheter Qualified Code(s): T83.511A - Infection and inflammatory reaction due to indwelling urethral catheter, initial encounter; N39.0 - Urinary tract infection, site not specified Code(s): T83.511A - Infection and inflammatory reaction due to indwelling urethral catheter, initial encounter; N39.0 - Urinary tract infection, site not specified Status: Acute Subjective Date/time seen: 09/19/24 13:16 Interval history: BP normalized and transferred back to floor no new issues she seems comfortable and pleasant Review of Systems Review of Systems: All systems reviewed & are unremarkable except as noted in HPI and below Exam Narrative: General: Pt is alert awake and in NAD Neck: supple Lungs/Chest: Trachea central Clear BS B/L, No crackles or wheezing. Cardiac: RRR. Normal S1 S2. No murmurs Abdomen: Normal bowel sounds.. Soft. NT. ND. Obese Extremities: Mild bilateral pitting edema : White in place Neurologic: AOx 3, paraplegiacontractures in legs and left up hand, able to follow commands with both hand PERRL slurred speech Skin: Superficial decubitus ulcer on both buttocks Objective Data Vital Signs Vital Signs: Vital Signs - 24 hr 09/18/24 14:00 09/18/24 14:16 09/18/24 16:00 Temperature 99.5 F Pulse Rate 81 68 77 Respiratory Rate 20 26 H Blood Pressure 114/56 L Pulse Oximetry 95 94 Oxygen Delivery Room Air 09/18/24 16:00 09/18/24 16:00 09/18/24 16:40 Temperature 99.5 F Pulse Rate 80 85 Respiratory Rate 26 H Blood Pressure 109/60 Pulse Oximetry 94 91 Oxygen Delivery Room Air 09/18/24 16:56 09/18/24 17:15 09/18/24 17:30 Temperature 99.6 F 99.6 F 99.6 F Pulse Rate 84 87 90 Respiratory Rate 27 H 29 H 26 H Blood Pressure 112/54 L 106/62 103/66 Pulse Oximetry 94 93 94 Oxygen Delivery 09/18/24 17:45 09/18/24 17:56 09/18/24 18:00 Temperature 99.7 F H 99.7 F H Pulse Rate 86 91 97 Respiratory Rate 23 H 28 H Blood Pressure 112/60 116/75 Pulse Oximetry 94 94 Oxygen Delivery 09/18/24 18:15 09/18/24 18:30 09/18/24 18:45 Temperature 99.7 F H 99.8 F H 99.8 F H Pulse Rate 88 86 87 Respiratory Rate 29 H 34 H 34 H Blood Pressure 112/70 109/58 L 107/60 Pulse Oximetry 93 93 94 Oxygen Delivery 09/18/24 18:56 09/18/24 20:00 09/18/24 20:00 Temperature 99.6 F 99.7 F H Pulse Rate 90 83 87 Respiratory Rate 33 H 33 H Blood Pressure 105/54 L 110/61 Pulse Oximetry 95 93 Oxygen Delivery 09/18/24 20:40 09/18/24 21:14 09/18/24 22:24 Temperature Pulse Rate 83 70 Respiratory Rate 30 H 18 Blood Pressure Pulse Oximetry 95 93 Oxygen Delivery Room Air Room Air 09/19/24 00:00 09/19/24 00:00 09/19/24 00:40 Temperature 99 F Pulse Rate 76 76 Respiratory Rate 20 Blood Pressure 100/64 Pulse Oximetry 95 97 Oxygen Delivery Room Air 09/19/24 02:15 09/19/24 04:00 09/19/24 04:00 Temperature 98.8 F Pulse Rate 81 64 64 Respiratory Rate 20 Blood Pressure 110/62 Pulse Oximetry 96 Oxygen Delivery 09/19/24 04:00 09/19/24 06:09 09/19/24 08:00 Temperature Pulse Rate 82 Respiratory Rate Blood Pressure Pulse Oximetry 97 97 Oxygen Delivery Room Air Room Air 09/19/24 08:00 09/19/24 08:00 09/19/24 12:00 Temperature 98.7 F Pulse Rate 84 83 94 Respiratory Rate 30 H Blood Pressure 111/78 Pulse Oximetry 97 Oxygen Delivery Intake/Output Intake/Output: Intake & Output 09/16/24 09/17/24 09/18/24 09/19/24 23:59 23:59 23:59 23:59 Intake Total 1000 3770 4063 1908.8 Output Total 202 1652 1075 1375 Balance 798 2118 2988 533.8 Meds/Results Medications: Active Medications Generic Name Dose Route Start Last Admin Trade Name Freq PRN Reason Stop Dose Admin Acetaminophen 650 mg 09/16/24 17:01 09/19/24 10:32 Acetaminophen Elixir 325 Mg/10.15 Ml Udc FEED TUBE 650 mg Q6H PRN Administration Mild Pain (1-3) or Fever Docusate Sodium 100 mg 09/16/24 21:00 09/19/24 08:46 Docusate Sodium Liq 100 Mg/10 Ml Udc FEED TUBE 100 mg Q12HR SONIA Administration Piperacillin/Tazobactam/Dextrose 3.375 gm in 50 mls @ 100 mls/hr 09/16/24 23:00 09/19/24 11:51 Zosyn 3.375 Gm/Ns 50 Ml IVPB Infused Q6HR SONIA Infusion Polyethylene Glycol 17 gm 09/19/24 09:00 09/19/24 08:46 Polyethylene Glycol 3350 17 Gm Powd.Pack PO 17 gm QAM SONIA Administration Sodium Chloride 10 ml 09/18/24 14:00 09/19/24 06:06 Central Line Flush IV PUSH 10 ml Q8HR SONIA Administration Sodium Chloride 10 ml 09/18/24 10:48 Central Line Flush IV PUSH PRN PRN with TPN bag changes Sodium Chloride 20 ml 09/18/24 10:48 Central Line Flush IV PUSH PRN PRN after blood draws Radiology Results: ITS Impressions Abdomen/Pelvis CT 09/16/24 13:53 IMPRESSION: High-grade bowel obstruction secondary to fecal impaction with mass effect on the distal ureters causing bilateral hydroureteronephrosis. Abdomen X-Ray 09/17/24 08:28 Impression: 1: Moderate colonic and rectal fecal loading. Chest X-Ray 09/18/24 11:10 IMPRESSION: 1. Right upper extremity PICC line tip at the superior cavoatrial junction. 2. Mild discoid atelectasis at the left lung base. No other acute cardiopulmonary disease. Labs Labs: Laboratory Results - last 24 hr 09/16/24 09/18/24 09/18/24 14:14 10:19 14:32 WBC RBC Hgb Hct MCV MCH MCHC RDW Plt Count MPV Immature Gran % (Auto) Neut % (Auto) Lymph % (Auto) [place] % (Auto) Eos % (Auto) Baso % (Auto) Lymph # (Auto) [place] # (Auto) Eos # (Auto) Baso # (Auto) Abs Immat Gran (auto) Absolute Neuts (auto) Absolute Nucleated RBC Nucleated RBC % Sodium Potassium Chloride Carbon Dioxide Anion Gap BUN Creatinine Estim Creat Clear Calc Estimated GFR Glucose Calcium Phosphorus Magnesium Total Bilirubin Post-Trans Total Bili AST ALT Alkaline Phosphatase Total Protein Albumin Ur Blood, Post-Transfus 2+ H Post-Trnsf Ur Hematuria 21-50 H Nasal MRSA (PCR) Blood Type O Positive Antibody Screen Negative Crossmatch See Detail Pre-Trans Antibody Scrn Negative Post-Trans Antibody Scrn Negative 09/18/24 09/18/24 09/18/24 15:28 18:51 20:22 WBC 4.5 RBC 2.53 L Hgb 7.3 L Hct 23.2 L MCV 91.7 MCH 28.9 MCHC 31.5 L RDW 15.1 H Plt Count 133 L MPV 9.6 Immature Gran % (Auto) 0.4 Neut % (Auto) 65.8 Lymph % (Auto) 11.7 L [place] % (Auto) 18.1 H Eos % (Auto) 3.3 Baso % (Auto) 0.7 Lymph # (Auto) 0.53 L [place] # (Auto) 0.8 H Eos # (Auto) 0.2 Baso # (Auto) 0.0 Abs Immat Gran (auto) 0.02 Absolute Neuts (auto) 3.0 Absolute Nucleated RBC 0.000 Nucleated RBC % 0.0 Sodium 139 Potassium 3.7 Chloride 106 Carbon Dioxide 21 L Anion Gap 12 BUN 15 D Creatinine 1.16 H Estim Creat Clear Calc 32 Estimated GFR 47 L Glucose 127 H Calcium 7.7 L Phosphorus Magnesium 1.9 Total Bilirubin Post-Trans Total Bili 0.2 AST ALT Alkaline Phosphatase Total Protein Albumin Ur Blood, Post-Transfus Post-Trnsf Ur Hematuria Nasal MRSA (PCR) Not detected Blood Type Antibody Screen Crossmatch Pre-Trans Antibody Scrn Post-Trans Antibody Scrn 09/19/24 05:19 WBC 4.5 RBC 2.69 L Hgb 7.8 L Hct 24.6 L MCV 91.4 MCH 29.0 MCHC 31.7 L RDW 15.5 H Plt Count 144 L MPV 9.9 Immature Gran % (Auto) Neut % (Auto) Lymph % (Auto) [place] % (Auto) Eos % (Auto) Baso % (Auto) Lymph # (Auto) [place] # (Auto) Eos # (Auto) Baso # (Auto) Abs Immat Gran (auto) Absolute Neuts (auto) Absolute Nucleated RBC Nucleated RBC % Sodium 137 Potassium 3.7 Chloride 106 Carbon Dioxide 23 Anion Gap 8 BUN 14 Creatinine 1.05 H Estim Creat Clear Calc 41 Estimated GFR 52 L Glucose 83 Calcium 8.0 L Phosphorus 2.0 L Magnesium 1.9 Total Bilirubin 0.7 Post-Trans Total Bili AST 27 ALT 26 Alkaline Phosphatase 107 Total Protein 5.0 L Albumin 3.3 L Ur Blood, Post-Transfus Post-Trnsf Ur Hematuria Nasal MRSA (PCR) Blood Type Antibody Screen Crossmatch Pre-Trans Antibody Scrn Post-Trans Antibody Scrn
[2024-09-20] VITALS (8 sets, daily range): BP systolic 134–140; BP diastolic 74–81; PULSE 85–104; RESP 15–18; TEMP 36.7–36.8; O2SAT 96–97
[2024-09-20] MEDS: PIPERACILLN/TAZ 3.375GM/NS50ML 3.375 GM/50 ML BAG IVPB ×3 (00:09→11:20)
[2024-09-20] MEDS: CENTRAL LINE FLUSH 20 ML IV PUSH (05:11)
[2024-09-20] MEDS: CENTRAL LINE FLUSH 10 ML IV PUSH ×3 (05:11→21:04)
[2024-09-20 06:11] LABS: Hematocrit 28.8 % (37.0-47.0); Hemoglobin 9.2 g/dL (12.0-15.0); Mean Corpuscular HGB Conc 31.9 g/dl (32-36); Mean Corpuscular Volume 90.9 fl (80-100); Mean Platelet Volume 10.1 fl (7.4-10.4); Platelet Count Result 170 k/mm3 (150-375); Red Blood Count 3.17 M/mm3 (4.2-5.4); Red Cell Distribution Width 15.4 % (11.5-14.5); White Blood Count 5.9 K/mm3 (4.5-10.0)
[2024-09-20] MEDS: ACETAMINOPHEN ELIXIR 325 MG/10.15 ML UDC 650 MG FEED TUBE (06:12)
[2024-09-20 06:21] LABS: Alanine Aminotransferase 21 U/L (6-35); Albumin Level 3.4 g/dL (3.5-5.1); Alkaline Phosphatase 108 U/L (38-126); Anion Gap 10 mmol/L (4-12); Aspartate Amino Transferase 22 U/L (14-36); Bilirubin,Total 0.7 mg/dL (0.2-1.3); Blood Urea Nitrogen 14 mg/dL (7-17); Calcium 8.2 mg/dL (8.4-10.2); Carbon Dioxide 22 mmol/L (22-30); Chloride 105 mmol/L (98-107); Estimated CRCL calculation 44 ml/min; Estimated Glomerular Filt Rate 57; Glucose 68 mg/dL (65-110); Magnesium 1.6 mg/dL (1.6-2.3); Phosphorus 3.3 mg/dL (2.5-4.5); Potassium 3.6 mmol/L (3.4-5.0); Sodium 137 mmol/L (137-145)
[2024-09-20] MEDS: polyethylene glycoL 3350 17 GM POWD.PACK PO (08:36)
[2024-09-20] MEDS: DOCUSATE SODIUM LIQ 100 MG/10 ML UDC FEED TUBE ×2 (08:37→21:04)
--- NOTE | 2024-09-20 10:58 | PCNFU ---
Nutrition Follow-Up Complete: Increased protein energy needs related to wound healing as evidenced by deep tissue pressure injuries to buttocks Goal:Advance diet Wound support when diet advanced Pt current nutrition is Low Fiber. Nutrition recommendation: Add Ensure Enlive BID, VAHID BID Last recorded weight is 66.3 kg. Bowel Motility: +BM / Labs Reviewed: Hgb:9.2, HCT:28.8 Meds Noted: miralax Skin: DTPI to buttocks Additional Notes: Pt just transferred out of ICU, low fiber diet restarted, intake 25%. Pt agreeable to Ensure supplements, will also send VAHID for wound healing. Monitoring diet orders, weights, labs, skin, plan of care Follow up in 5 days
--- NOTE | 2024-09-20 11:30 | P.PNIM_ITS ---
Progress Note: A&P Assessment and Plan (1) Sepsis: Qualifiers: Sepsis type: sepsis due to unspecified organism Sepsis acute organ dysfunction status: with acute organ dysfunction Severe sepsis acute organ dysfunction type: acute renal failure Acute renal failure type: unspecified Severe sepsis shock status: without septic shock Qualified Code(s): A41.9 - Sepsis, unspecified organism; R65.20 - Severe sepsis without septic shock; N17.9 - Acute kidney failure, unspecified Code(s): A41.9 - Sepsis, unspecified organism Status: Acute (2) Fecal impaction: Code(s): K56.41 - Fecal impaction Status: Acute (3) Bowel obstruction: Qualifiers: Intestinal obstruction type: fecal impaction Qualified Code(s): K56.41 - Fecal impaction Code(s): K56.609 - Unspecified intestinal obstruction, unspecified as to partial versus complete obstruction Status: Acute (4) Acute renal failure: Qualifiers: Acute renal failure type: unspecified Qualified Code(s): N17.9 - Acute kidney failure, unspecified Code(s): N17.9 - Acute kidney failure, unspecified Status: Acute (5) Catheter-associated urinary tract infection: Qualifiers: Encounter type: initial encounter Indwelling urinary catheter type: indwelling urethral catheter Qualified Code(s): T83.511A - Infection and inflammatory reaction due to indwelling urethral catheter, initial encounter; N39.0 - Urinary tract infection, site not specified Code(s): T83.511A - Infection and inflammatory reaction due to indwelling urethral catheter, initial encounter; N39.0 - Urinary tract infection, site not specified Status: Acute (6) Pressure ulcer of buttock: Qualifiers: Pressure injury stage: unstageable Laterality: unspecified laterality Qualified Code(s): L89.300 - Pressure ulcer of unspecified buttock, unstageable Code(s): L89.309 - Pressure ulcer of unspecified buttock, unspecified stage Status: Acute (7) Chronic anemia: Code(s): D64.9 - Anemia, unspecified Status: Chronic (8) Hypertension: Qualifiers: Hypertension type: primary hypertension Qualified Code(s): I10 - Essential (primary) hypertension Code(s): I10 - Essential (primary) hypertension Status: Chronic Plan 64 y/o F with PMH of dementia, chronic anemia, DVT, GERD, HLD, HTN, ulcerative colitis, and neurogenic bladder with chronic indwelling White presents here with coffee-ground emesis and diarrhea. The patient presents here from [facility] via EMS for further evaluation of coffee-ground emesis and diarrhea. Onset of nausea, vomiting, and diarrhea was last night. She had large volumes of liquid stool in the ED, Hemoccult negative. She endorses associated abdominal achiness and fatigue. Denies fever, chills, body aches, chest pain, shortness of breath, dizziness. No further history available, patient poor historian. Initial VS at presentation: HR 125, RR 22, 110/49, and 100% on RA. ED workup showed: WBC 15.3, hemoglobin 8.3 (previously 8.2 in 2020), normal coags, sodium 133, creatinine 1.60 and GFR 32 (previously 1.1 and GFR 50 in 2020), lactic 2.0, calcium 7.9 (corrected to 8.3 due to albumin), UA suggestive of UTI (may be contaminant), C diff negative, viral PCR negative. CT abdomen/pelvis showed a high-grade bowel obstruction secondary to fecal impaction with mass effect on the distal ureters causing bilateral hydroureteronephrosis. NG tube has been placed. General surgery has been noted fecal impaction rectum status post manual disimpaction in the ED followed by suds enema. Now having diarrhea. ng now removed and started on oral diet Diarrhea stercoral colitis. IV Zosyn medically Metabolic acidosis worsened anion gap switched to bicarb gtt which will be switched back to ns. anemia: no signs of bleeding. transfusion to keep Hb > 7. H&H remained stable now post transfusion of 2 units PRBC possible transfusion reaction: likely with hypotension. transfusion workup. Subsequently got transfused hypokalemia replace and monitor bilateral hydronephrosis due to mass effect on distal ureter by fecal impaction. Recheck ultrasound with mild persistent right hydronephrosis UTI on Zosyn follow urine culture. Will switch to oral Augmentin Chronic White catheter Neurogenic bladder History of ulcerative colitis GERD Hypertension Hyperlipidemia History of DVT Chronic anemia Dementia Diet: NPO GI Prophylaxis: Pantoprazole DVT Prophylaxis: SCDs Lines: Peripheral Code Status: Full code Subjective Date/time seen: 09/20/24 11:30 Interval history: No new complaints. No overnight events. No nausea vomiting. Had bowel movement today. Does not want to go back to [employer]. Review of Systems Review of Systems: All systems reviewed & are unremarkable except as noted in HPI and below (Limited, poor historian) Exam Narrative: General: Pt is alert awake and in NAD Lungs/Chest: Trachea central Clear BS B/L, No crackles or wheezing. Cardiac: RRR. Normal S1 S2. No murmurs Circulation: Pedal pulses are intact and symmetrical. Abdomen: Normal bowel sounds.. Soft. NT. ND. Obese Extremities: Mild bilateral pitting edema : White in place Neurologic: AOx 3, paraplegia, does have touch sensation in the feet but unable to move legs, contractures in legs and left up hand, able to follow commands with both hand PERRL slurred speech Skin: Superficial decubitus ulcer on on both buttocks Objective Data Vital Signs Vital Signs: Vital Signs - 24 hr 09/19/24 12:00 09/19/24 14:31 09/19/24 16:00 Temperature Pulse Rate 94 86 91 Respiratory Rate 18 Blood Pressure 123/72 Pulse Oximetry 97 Oxygen Delivery 09/19/24 19:52 09/19/24 20:00 09/19/24 20:00 Temperature 98.7 F Pulse Rate 89 89 86 Respiratory Rate 18 18 Blood Pressure 131/65 Pulse Oximetry 97 97 Oxygen Delivery Room Air 09/20/24 00:00 09/20/24 04:00 09/20/24 05:02 Temperature 98.3 F Pulse Rate 90 85 96 Respiratory Rate 18 Blood Pressure 140/81 Pulse Oximetry 96 Oxygen Delivery 09/20/24 08:37 09/20/24 08:37 Temperature Pulse Rate 95 Respiratory Rate Blood Pressure Pulse Oximetry Oxygen Delivery Room Air Intake/Output Intake/Output: Intake & Output 09/17/24 09/18/24 09/19/24 09/20/24 23:59 23:59 23:59 23:59 Intake Total 3770 4063 2618.8 460 Output Total 1652 1075 2000 1300 Balance 2118 2988 618.8 -840 Meds/Results Medications: Active Medications Generic Name Dose Route Start Last Admin Trade Name Freq PRN Reason Stop Dose Admin Acetaminophen 650 mg 09/16/24 17:01 09/20/24 06:12 Acetaminophen Elixir 325 Mg/10.15 Ml Udc FEED TUBE 650 mg Q6H PRN Administration Mild Pain (1-3) or Fever Docusate Sodium 100 mg 09/16/24 21:00 09/20/24 08:37 Docusate Sodium Liq 100 Mg/10 Ml Udc FEED TUBE 100 mg Q12HR SONIA Administration Piperacillin/Tazobactam/Dextrose 3.375 gm in 50 mls @ 100 mls/hr 09/16/24 23:00 09/20/24 11:20 Zosyn 3.375 Gm/Ns 50 Ml IVPB 100 mls/hr Q6HR SONIA Administration Polyethylene Glycol 17 gm 09/19/24 09:00 09/20/24 08:36 Polyethylene Glycol 3350 17 Gm Powd.Pack PO 17 gm QAM SONIA Administration Sodium Chloride 10 ml 09/18/24 14:00 09/20/24 05:11 Central Line Flush IV PUSH 10 ml Q8HR SONIA Administration Sodium Chloride 10 ml 09/18/24 10:48 Central Line Flush IV PUSH PRN PRN with TPN bag changes Sodium Chloride 20 ml 09/18/24 10:48 09/20/24 05:11 Central Line Flush IV PUSH 20 ml PRN PRN Administration after blood draws Radiology Results: ITS Impressions Abdomen/Pelvis CT 09/16/24 13:53 IMPRESSION: High-grade bowel obstruction secondary to fecal impaction with mass effect on the distal ureters causing bilateral hydroureteronephrosis. Abdomen X-Ray 09/17/24 08:28 Impression: 1: Moderate colonic and rectal fecal loading. Chest X-Ray 09/18/24 11:10 IMPRESSION: 1. Right upper extremity PICC line tip at the superior cavoatrial junction. 2. Mild discoid atelectasis at the left lung base. No other acute cardiopul monary disease. Renal Ultrasound 09/20/24 11:04 IMPRESSION: 1. Persistent mild right hydronephrosis. Labs Labs: Laboratory Results - last 24 hr 09/20/24 05:12 WBC 5.9 RBC 3.17 L Hgb 9.2 L Hct 28.8 L MCV 90.9 MCH 29.0 MCHC 31.9 L RDW 15.4 H Plt Count 170 MPV 10.1 Sodium 137 Potassium 3.6 Chloride 105 Carbon Dioxide 22 Anion Gap 10 BUN 14 Creatinine 0.97 Estim Creat Clear Calc 44 Estimated GFR 57 L Glucose 68 Calcium 8.2 L Phosphorus 3.3 Magnesium 1.6 Total Bilirubin 0.7 AST 22 ALT 21 Alkaline Phosphatase 108 Total Protein 6.0 L Albumin 3.4 L
--- NOTE | 2024-09-20 15:49 | PM.PNGS ---
Progress Note: A&P Assessment and Plan (1) Fecal impaction: Code(s): K56.41 - Fecal impaction Status: Acute Assessment and Plan: Resolved. Diarrhea has slowed and now having more formed bowel movements. Abdominal x-ray today showed no stool ball. She has some mildly dilated bowel on the plain films, but she is tolerating her diet and bowels are moving. She is not having any abdominal pain and her abdominal exam is benign. She does have multiple wounds to her perianal and buttock region and posterior thighs that is likely related to pressure and excoriation from incontinence. There is an option for considering a diverting colostomy to divert fecal stream from the rectum to promote healing and avoid complications with infection, but she is bedridden and will continue to have an issues with pressure on these wounds. I tried to discuss this option with the patient today, but she was refusing to let me speak and was constantly yelling over me to stop talking and get out of the room. She was clear that she does not want any surgery. She does not have any family present to discuss this with and her only contact is her sister (possibly NATASHAA per the chart), who also lives at the same facility as her. I spoke with the Hospitalist and the patient has refused to allow anyone to call her sister or speak with her about her care. If there are changes in her status or she would like to consider the diverting colostomy as an option, then we would be happy to discuss this with her further at that time. For now, she is surgically stable for discharge back to the nursing facility and we will sign off. Please call with any surgical concerns in the future. Plan I have discussed the patient's case and plan of care with Dr. Martinez. Subjective Subjective Date/Time Seen: 09/20/24 15:49 Interval history: Patient with history of dementia who we are seeing for fecal impaction causing bowel obstruction. She is agitated and confused. She refuses to answer any of my questions and is swearing and continues to say she wants to be left alone. Exam Const: Orientation/consciousness: confusion GI: Inspection: non-distended GI Palp: Yes Soft to palpation, No Tenderness to palpation present (GI), No Guarding due to palpation present (GI) and No Rebound tenderness present Auscultation: normal bowel sounds Rectal Exam: visual inspection normal (incontinent with brown liquid stool in bed), No fecal impaction (no palpable firm stool felt on digital rectal exam) and No mass Other: Multiple superficial wounds to bilateral buttocks and posterior thighs with maceration, no necrotic tissue or purulent drainage Objective Data Vital Signs Vital Signs: Vital Signs - 24 hr 09/19/24 16:00 09/19/24 19:52 09/19/24 20:00 Temperature 98.7 F Pulse Rate 91 89 89 Respiratory Rate 18 18 Blood Pressure 131/65 Pulse Oximetry 97 97 Oxygen Delivery Room Air 09/19/24 20:00 09/20/24 00:00 09/20/24 04:00 Temperature Pulse Rate 86 90 85 Respiratory Rate Blood Pressure Pulse Oximetry Oxygen Delivery 09/20/24 05:02 09/20/24 08:37 09/20/24 08:37 Temperature 98.3 F Pulse Rate 96 95 Respiratory Rate 18 Blood Pressure 140/81 Pulse Oximetry 96 Oxygen Delivery Room Air 09/20/24 12:00 09/20/24 14:18 Temperature 98.1 F Pulse Rate 103 H 99 Respiratory Rate 15 Blood Pressure 134/74 Pulse Oximetry 97 Oxygen Delivery Intake/Output Intake/Output: Intake & Output 09/17/24 09/18/24 09/19/24 09/20/24 23:59 23:59 23:59 23:59 Intake Total 3770 4063 2618.8 700 Output Total 1652 1075 2000 1900 Balance 2118 2988 618.8 -1200 Meds/Results Medications: Active Medications Generic Name Dose Route Start Last Admin Trade Name Freq PRN Reason Stop Dose Admin Acetaminophen 650 mg 09/16/24 17:01 09/20/24 06:12 Acetaminophen Elixir 325 Mg/10.15 Ml Udc FEED TUBE 650 mg Q6H PRN Administration Mild Pain (1-3) or Fever Amoxicillin/Clavulanate Potassium 1 tablet 09/20/24 21:00 Amoxicillin/Clavulanate K 875-125 Mg Tab PO 09/25/24 20:59 Q12HR SONIA Docusate Sodium 100 mg 09/16/24 21:00 09/20/24 08:37 Docusate Sodium Liq 100 Mg/10 Ml Udc FEED TUBE 100 mg Q12HR SONIA Administration Polyethylene Glycol 17 gm 09/19/24 09:00 09/20/24 08:36 Polyethylene Glycol 3350 17 Gm Powd.Pack PO 17 gm QAM SONIA Administration Sodium Chloride 10 ml 09/18/24 14:00 09/20/24 05:11 Central Line Flush IV PUSH 10 ml Q8HR SONIA Administration Sodium Chloride 10 ml 09/18/24 10:48 Central Line Flush IV PUSH PRN PRN with TPN bag changes Sodium Chloride 20 ml 09/18/24 10:48 09/20/24 05:11 Central Line Flush IV PUSH 20 ml PRN PRN Administration after blood draws Radiology Results: ITS Impressions Abdomen/Pelvis CT 09/16/24 13:53 IMPRESSION: High-grade bowel obstruction secondary to fecal impaction with mass effect on the distal ureters causing bilateral hydroureteronephrosis. Chest X-Ray 09/18/24 11:10 IMPRESSION: 1. Right upper extremity PICC line tip at the superior cavoatrial junction. 2. Mild discoid atelectasis at the left lung base. No other acute cardiopulmonary disease. Renal Ultrasound 09/20/24 11:04 IMPRESSION: 1. Persistent mild right hydronephrosis. Abdomen X-Ray 09/20/24 15:33 IMPRESSION: Slightly dilated small and large bowel loops. Follow-up and clinical correlation advised. Labs Labs: Laboratory Results - last 24 hr 09/20/24 05:12 WBC 5.9 RBC 3.17 L Hgb 9.2 L Hct 28.8 L MCV 90.9 MCH 29.0 MCHC 31.9 L RDW 15.4 H Plt Count 170 MPV 10.1 Sodium 137 Potassium 3.6 Chloride 105 Carbon Dioxide 22 Anion Gap 10 BUN 14 Creatinine 0.97 Estim Creat Clear Calc 44 Estimated GFR 57 L Glucose 68 Calcium 8.2 L Phosphorus 3.3 Magnesium 1.6 Total Bilirubin 0.7 AST 22 ALT 21 Alkaline Phosphatase 108 Total Protein 6.0 L Albumin 3.4 L
[2024-09-20] MEDS: AMOXICILLIN/CLAVULANATE K 875-125 MG TAB 1 TABLET PO (21:04)
[2024-09-21] VITALS: BP 125/77; PULSE 100; PULSE 102; RESP 18; TEMP 36.3; O2SAT 96
[2024-09-21 04:00] VITALS: PULSE 106
[2024-09-21] MEDS: CENTRAL LINE FLUSH 10 ML IV PUSH (05:40)
[2024-09-21] MEDS: CENTRAL LINE FLUSH 20 ML IV PUSH (05:41)
[2024-09-21 06:00] VITALS: BP 129/56; PULSE 101; RESP 18; TEMP 36.7; O2SAT 96
[2024-09-21 06:00] LABS: Hematocrit 30.3 % (37.0-47.0); Hemoglobin 9.5 g/dL (12.0-15.0); Mean Corpuscular HGB Conc 31.4 g/dl (32-36); Mean Corpuscular Hemoglobin 28.8 pg (26-34); Mean Corpuscular Volume 91.8 fl (80-100); Mean Platelet Volume 9.8 fl (7.4-10.4); Platelet Count Result 168 k/mm3 (150-375); Red Cell Distribution Width 15.3 % (11.5-14.5); White Blood Count 5.3 K/mm3 (4.5-10.0)
[2024-09-21 06:17] LABS: Alanine Aminotransferase 17 U/L (6-35); Albumin Level 3.2 g/dL (3.5-5.1); Alkaline Phosphatase 107 U/L (38-126); Anion Gap 8 mmol/L (4-12); Aspartate Amino Transferase 19 U/L (14-36); Bilirubin,Total 0.8 mg/dL (0.2-1.3); Blood Urea Nitrogen 13 mg/dL (7-17); Calcium 8.1 mg/dL (8.4-10.2); Carbon Dioxide 23 mmol/L (22-30); Chloride 104 mmol/L (98-107); Estimated CRCL calculation 44 ml/min; Estimated Glomerular Filt Rate 59; Glucose 80 mg/dL (65-110); Magnesium 1.4 mg/dL (1.6-2.3); Phosphorus 3.4 mg/dL (2.5-4.5); Potassium 3.3 mmol/L (3.4-5.0); Sodium 135 mmol/L (137-145)
[2024-09-21] MEDS: MAGNESIUM SULF 2 GM/WATER 50ML 2 GM/50 ML BAG IVPB (09:37)
[2024-09-21] MEDS: POTASSIUM CHLORIDE 20 MEQ ER TABLET 40 MEQ PO (09:41)
[2024-09-21] MEDS: AMOXICILLIN/CLAVULANATE K 875-125 MG TAB 1 TABLET PO (09:41)
[2024-09-21 09:42] VITALS: PULSE 105; O2SAT 97
[2024-09-21] MEDS: polyethylene glycoL 3350 17 GM POWD.PACK PO (09:42)
[2024-09-21] MEDS: DOCUSATE SODIUM LIQ 100 MG/10 ML UDC FEED TUBE (09:42)
--- NOTE | 2024-09-21 11:04 | PM.DS ---
DS: Admitting Diagnosis Discharge Date 09/21/2024 Admitting Diagnosis coffee ground emesis, diarrhea DS: Discharge Diagnosis Discharge Diagnosis (1) Sepsis: Qualifiers: Sepsis type: sepsis due to unspecified organism Sepsis acute organ dysfunction status: with acute organ dysfunction Severe sepsis acute organ dysfunction type: acute renal failure Acute renal failure type: unspecified Severe sepsis shock status: without septic shock Qualified Code(s): A41.9 - Sepsis, unspecified organism; R65.20 - Severe sepsis without septic shock; N17.9 - Acute kidney failure, unspecified Code(s): A41.9 - Sepsis, unspecified organism Status: Acute (2) Fecal impaction: Code(s): K56.41 - Fecal impaction Status: Acute (3) Bowel obstruction: Qualifiers: Intestinal obstruction type: fecal impaction Qualified Code(s): K56.41 - Fecal impaction Code(s): K56.609 - Unspecified intestinal obstruction, unspecified as to partial versus complete obstruction Status: Acute (4) Acute renal failure: Qualifiers: Acute renal failure type: unspecified Qualified Code(s): N17.9 - Acute kidney failure, unspecified Code(s): N17.9 - Acute kidney failure, unspecified Status: Acute (5) Catheter-associated urinary tract infection: Qualifiers: Encounter type: initial encounter Indwelling urinary catheter type: indwelling urethral catheter Qualified Code(s): T83.511A - Infection and inflammatory reaction due to indwelling urethral catheter, initial encounter; N39.0 - Urinary tract infection, site not specified Code(s): T83.511A - Infection and inflammatory reaction due to indwelling urethral catheter, initial encounter; N39.0 - Urinary tract infection, site not specified Status: Acute (6) Pressure ulcer of buttock: Qualifiers: Pressure injury stage: unstageable Laterality: unspecified laterality Qualified Code(s): L89.300 - Pressure ulcer of unspecified buttock, unstageable Code(s): L89.309 - Pressure ulcer of unspecified buttock, unspecified stage Status: Acute (7) Chronic anemia: Code(s): D64.9 - Anemia, unspecified Status: Chronic (8) Hypertension: Qualifiers: Hypertension type: primary hypertension Qualified Code(s): I10 - Essential (primary) hypertension Code(s): I10 - Essential (primary) hypertension Status: Chronic DS: Summary Hospital Course Hospital Course: 64 y/o F with PMH of dementia, chronic anemia, DVT, GERD, HLD, HTN, ulcerative colitis, and neurogenic bladder with chronic indwelling White presents here with coffee-ground emesis and diarrhea. The patient presents here from [facility] via EMS for further evaluation of coffee-ground emesis and diarrhea. Onset of nausea, vomiting, and diarrhea was last night. She had large volumes of liquid stool in the ED, Hemoccult negative. She endorses associated abdominal achiness and fatigue. Denies fever, chills, body aches, chest pain, shortness of breath, dizziness. No further history available, patient poor historian. Initial VS at presentation: HR 125, RR 22, 110/49, and 100% on RA. ED workup showed: WBC 15.3, hemoglobin 8.3 (previously 8.2 in 2020), normal coags, sodium 133, creatinine 1.60 and GFR 32 (previously 1.1 and GFR 50 in 2020), lactic 2.0, calcium 7.9 (corrected to 8.3 due to albumin), UA suggestive of UTI (may be contaminant), C diff negative, viral PCR negative. CT abdomen/pelvis showed a high-grade bowel obstruction secondary to fecal impaction with mass effect on the distal ureters causing bilateral hydroureteronephrosis. NG tube has been placed. General surgery has been noted fecal impaction rectum status post manual disimpaction in the ED followed by suds enema. Now having diarrhea. ng now removed and started on oral diet which she is tolerating well Diarrhea stercoral colitis. IV Zosyn medically which is switched to oral amoxicillin to complete the course. Metabolic acidosis worsened anion gap switched to bicarb gtt which will be switched back to ns and this has now been stopped. anemia: no signs of bleeding. transfusion to keep Hb > 7. H&H remained stable now post transfusion of 2 units PRBC possible transfusion reaction: likely with hypotension. transfusion workup. Subsequently got transfused hypokalemia replace and monitor bilateral hydronephrosis due to mass effect on distal ureter by fecal impaction. Recheck ultrasound with mild persistent right hydronephrosis. fu with urology as op basis. UTI on Zosyn follow urine culture. Will switch to oral Augmentin Chronic White catheter Neurogenic bladder History of ulcerative colitis GERD Hypertension Hyperlipidemia History of DVT Chronic anemia Dementia Diet: NPO GI Prophylaxis: Pantoprazole DVT Prophylaxis: SCDs Lines: Peripheral Code Status: Full code Time Spent with Patient Time attestation: Total time spent providing and/or coordinating discharge services: 40 mins Exam Narrative: General: Pt is alert awake and in NAD Lungs/Chest: Trachea central Clear BS B/L, No crackles or wheezing. Cardiac: RRR. Normal S1 S2. No murmurs Circulation: Pedal pulses are intact and symmetrical. Abdomen: Normal bowel sounds.. Soft. NT. ND. Obese Extremities: Mild bilateral pitting edema : White in place Neurologic: AOx 3, paraplegia, does have touch sensation in the feet but unable to move legs, contractures in legs and left up hand, able to follow commands with both hand PERRL slurred speech Skin: Superficial decubitus ulcer on on both buttocks DS: Data Data Completed and Pending Labs on day of discharge: Labs from last 24 hours 09/21/24 05:40 WBC 5.3 RBC 3.30 L Hgb 9.5 L Hct 30.3 L MCV 91.8 MCH 28.8 MCHC 31.4 L RDW 15.3 H Plt Count 168 MPV 9.8 Sodium 135 L Potassium 3.3 L Chloride 104 Carbon Dioxide 23 Anion Gap 8 BUN 13 Creatinine 0.95 Estim Creat Clear Calc 44 Estimated GFR 59 Glucose 80 Calcium 8.1 L Phosphorus 3.4 Magnesium 1.4 L Total Bilirubin 0.8 AST 19 ALT 17 Alkaline Phosphatase 107 Total Protein 6.0 L Albumin 3.2 L Preliminary micro results at discharge 09/18/24 16:30 Blood Culture - Preliminary Blood 09/18/24 16:59 Blood Culture - Preliminary Blood 09/16/24 14:14 Blood Culture - Preliminary Blood 09/16/24 14:14 Blood Culture - Preliminary Blood Imaging Radiologist's impression: ITS Impressions Abdomen/Pelvis CT 09/16/24 13:53 IMPRESSION: High-grade bowel obstruction secondary to fecal impaction with mass effect on the distal ureters causing bilateral hydroureteronephrosis. Abdomen X-Ray 09/16/24 14:55 IMPRESSION: 1: NG tube tip in the stomach. Abdomen X-Ray 09/17/24 08:28 Impression: 1: Moderate colonic and rectal fecal loading. Chest X-Ray 09/18/24 11:10 IMPRESSION: 1. Right upper extremity PICC line tip at the superior cavoatrial junction. 2. Mild discoid atelectasis at the left lung base. No other acute cardiopulmonary disease. Renal Ultrasound 09/20/24 11:04 IMPRESSION: 1. Persistent mild right hydronephrosis. Abdomen X-Ray 09/20/24 15:33 IMPRESSION: Slightly dilated small and large bowel loops. Follow-up and clinical correlation advised. Discharge Plan Discharge Attending physician on discharge: Alfredo Pérez Consulting providers: Magdaleno Cummings; Sánchez Watts Discharging Clinician: Alfredo Pérez Anticipated Discharge Date/Time: 09/21/24 11:07 Patient Disposition: NH Detention/Asst Living Activity: as tolerated Diet: low fiber Wound Care Instructions: change dressing daily Patient Instructions: Antibiotic Form Patient Language: Sami Stand Alone Forms: General Discharge Information, Skilled Nursing Discharge Follow-up/Referrals: Paul,MD Wyatt [Primary Care Provider] - 1 Week Discharge Medications: New polyethylene glycol 3350 [Miralax] 17 gram Powder In Packet 17 g PO QAM Qty: 30 0RF amoxicillin-pot clavulanate 875-125 mg tablet 1 tablet PO Q12H Qty: 6 0RF Continued sucralfate 1 gram tablet 1 g PO BID pantoprazole 40 mg tablet,delayed release (DR/EC) 40 mg PO DAILY simvastatin 20 mg tablet 20 mg PO HS montelukast 10 mg tablet 10 mg PO DAILY mirtazapine 15 mg tablet 15 mg PO HS sertraline 50 mg tablet 50 mg PO DAILY hydroxyzine pamoate 25 mg capsule 25 mg PO BID lactulose 10 gram/15 mL solution 10 g PO TID PRN (Reason: Constipation) ergocalciferol (vitamin D2) 25,000 unit Capsule 50,000 unit PO WEEKLY Rx Instructions: FRIDAY Acidophilus Capsule 1 cap PO DAILY Daily Multivitamin-Minerals Tablet 1 tablet PO DAILY cholecalciferol (vitamin D3) 25 mcg (1,000 unit) Tablet 4,000 unit PO DAILY acetaminophen 500 mg Capsule 1,000 mg PO Q6H PRN (Reason: Pain) ferrous sulfate [Iron (ferrous sulfate)] 325 mg (65 mg iron) Tablet 325 mg PO BID ascorbate calcium (vitamin C) 500 mg Tablet 500 mg PO BID potassium chloride 10 mEq tablet extended release 10 meq PO BID Changed docusate sodium 100 mg Capsule 100 mg PO BID Qty: 60 0RF Discontinued losartan 25 mg tablet 25 mg PO DAILY irbesartan 75 mg tablet 75 mg PO DAILY Date of admission: 09/16/24 15:47 Primary Care Provider: PaulWyatt Admitting Provider: Jamar Xiong Attending physician on admission: Jamar Xiong Condition: Stable
[2024-09-21 14:00] VITALS: BP 141/82; PULSE 115; RESP 12; TEMP 36.4; O2SAT 96
== END 2024-09-21 15:57 | DRG 698 ==
LOC: ANHED 14:53 → ANHIMU 15:40 → ANH2MED 09-20 14:40 → ANHIMU 09-23 09:00 → ANHICU 09-23 09:00
PROVIDERS: Internal Medicine; Nurse Practitioner Family; Admitting Provider Internal Medicine; Emergency Provider Emergency Medicine; PCP Internal Medicine; Visit Provider Internal Medicine
DX: T83.511A Infection and inflammatory reaction due to indwelling urethral catheter, initial encounter (principal); A41.9 Sepsis, unspecified organism; R65.20 Severe sepsis without septic shock; N13.6 Pyonephrosis; N17.9 Acute kidney failure, unspecified; K56.609 Unspecified intestinal obstruction, unspecified as to partial versus complete obstruction; R64 Cachexia; K56.699 Other intestinal obstruction unspecified as to partial versus complete obstruction; K52.9 Noninfective gastroenteritis and colitis, unspecified; K56.41 Fecal impaction; E86.0 Dehydration; D64.9 Anemia, unspecified; K21.9 Gastro-esophageal reflux disease without esophagitis; N31.9 Neuromuscular dysfunction of bladder, unspecified; E78.5 Hyperlipidemia, unspecified; L89.329 Pressure ulcer of left buttock, unspecified stage; L89.319 Pressure ulcer of right buttock, unspecified stage; E87.6 Hypokalemia; Z86.718 Personal history of other venous thrombosis and embolism; Z68.26 Body mass index [BMI] 26.0-26.9, adult
CPT/HCPCS: 36415; 36430; 36569; 74018; 74177; 76775; 80048; 80053; 81001; 82247; 83605; 83735; 84100; 84145; 85025; 85027; 85610; 85730; 86850; 86880; 86900; 86901; 86923; 87040; 87045; 87086; 87427; 87449; 87493; 87637; 87641; 96361; 96365; 96375; 99285; A9270; C1751; G0378; J2003; J2470; J2543; J3475; J3480; J7030; J7040; J7050; J7070; P9016; P9047; Q9967

== ENCOUNTER 2024-09-26 18:30 | Inpatient (IN) | payer MEDICARE, MEDICAID, SELFPAY ==
--- NOTE | ~2024-09-26 | XR_ITS ---
Supine and upright views of the abdomen Clinical history: Abdominal pain Findings: NG tube in place. Probably dilated small bowel loops. No definite free air. No abnormal mas s lesion or calcification is seen. Osseous structures are intact. IVC filter present. Impression: NG tube in place. Possible small bowel obstruction. Reviewed, dictated and finalized at location . Impression: NG tube in place. Possible small bowel obstruction.
--- NOTE | ~2024-09-26 | XR_ITS ---
Supine and upright views of the abdomen Clinical history: Small bowel obstruction COMPARISON: 09/29/2024 Findings: NG tube in place. Oral contrast present in large bowel. Minimally distended small bowel loo ps are present. IVC filter present. No free air. No abnormal mass lesion or calcification is seen. Os seous structures are intact. Impression: NG tube present with somewhat nonspecific bowel gas pattern. Partial small bowel obstruction is a pot ential consideration. Reviewed, dictated and finalized at location . Impression: NG tube present with somewhat nonspecific bowel gas pattern. Partial small ken l obstruction is a potential consideration.
--- NOTE | ~2024-09-26 | XR_ITS ---
Supine and upright views of the abdomen Clinical history: Small bowel obstruction COMPARISON: 09/30/2024 Findings: NG tube in place. There are several contrast throughout large bowel. Bowel gas pattern over all is somewhat nonspecific. No abnormal mass lesion or calcification is seen. Osseous structures are intact. IVC filter present. Impression: NG tube in place with relatively nonspecific bowel gas pattern. Oral contrast present in large bowel. Reviewed, dictated and finalized at location M. Impression: NG tube in place with relatively nonspecific bowel gas pattern. Oral contrast p resent in large bowel.
--- NOTE | ~2024-09-26 | XR_ITS ---
XR abdomen/kub 1V 09/28/2024 07:55 Indication: Small bowel obstruction Procedure: KUB Comparison: 09/20/2024 Findings: Large amount of retained fecal material in the right colon. There is dilated small bowel th roughout the abdomen, consistent with obstruction. There is an IVC filter present, position unchanged . No abnormal calcifications. There is moderate lumbar spondylosis with levoscoliosis. There is ostia l hips. Impression: 1: Small bowel obstruction. Reviewed, dictated and finalized at location B. Impression: 1: Small bowel obstruction.
--- NOTE | ~2024-09-26 | XR_ITS ---
EXAMINATION: XR sm bowel follow through WS DATE: 09/29/2024 12:11 INDICATION: Small bowel obstruction TECHNIQUE: Reject Opener radiograph(s) of the abdomen was/were obtained. Oral contrast was administered, and 12 sequential radiographs of the abdomen and pelvis were obtained until oral contrast was noted to b e in the proximal colon. COMPARISON: None. FINDINGS: Reject Opener image demonstrates nasogastric tube with distal tip in proximal side port in the body the decom pressed stomach. IVC filter in expected position projecting over the region of the infrarenal inferio r vena cava along the right side of the upper lumbar spine. Temperature probe within a White catheter projecting over the inferior central pelvis. There is a large amount of stool in the proximal colon. Gas is seen scattered throughout the more distal colon and multiple loops of small bowel. Transit ti me from the stomach to proximal colon was approximately 2 hours. There is mild dilation of portions o f the central small bowel with normal caliber of the proximal and distal small bowel. No discrete tra nsition point identified. There is a normal mucosal fold pattern throughout. IMPRESSION: 1. Persistent mildly dilated loops of small bowel but without discrete transition point and with norm al small bowel transit time consistent with resolving versus partial small bowel obstruction. Reviewed, dictated and finalized at location A. IMPRESSION: 1. Persistent mildly dilated loops of small bowel but without discrete transiti on point and with normal small bowel transit time consistent with resolving martin melvi partial small bowel obstruction.
--- NOTE | ~2024-09-26 | XR_ITS ---
EXAM: XR abdomen/kub 1V DATE: 10/11/2024 20:25 HISTORY: SBO . COMPARISON: 10/06/2024. FINDINGS: Catheter over the midline pelvis. IVC filter. Severe osteopenia. Large volume of colonic f ecal material in the right colon. Multiple air-filled loops of minimally dilated and redundant large bowel, unchanged. No definite small bowel dilation or wall thickening Severe degenerative change in t he spine.. IMPRESSION: Increasing volume of fecal material in the right colon, otherwise unchanged. Reviewed, dictated and finalized at location K. IMPRESSION: Increasing volume of fecal material in the right colon, otherwise u nchanged.
--- NOTE | ~2024-09-26 | XR_ITS ---
XR abdomen gastric tube insert INDICATION: Evaluate NG tube position. TECHNIQUE: Limited KUB perform for evaluating NG tube . COMPARISON: NG tube placement FINDINGS: NG tube tip in the stomach. Visualized bowel gas pattern is unremarkable. IMPRESSION: 1: NG tube tip in the stomach. Reviewed, dictated and finalized at location B.
--- NOTE | ~2024-09-26 | CT_ITS ---
History: Seizure PROCEDURE: CT head without contrast. COMPARISON: None TECHNIQUE: Axial imaging of the head performed from the skull base to the vertex without IV contrast. Sagittal a nd coronal reformations obtained. DLP: 681 mGy-cm FINDINGS: The ventricles are enlarged (right cerebral hemisphere greater than left). The dilatation of the ventricles is proportional to the degree of sulcal prominence, not uncommon in the senescent brain. Decreased attenuation is identified within the periventricular white matter, likely secondary to micr ovascular ischemic disease, in a patient of this age. There is no mass, mass effect or midline shift. There is no abnormal extra-axial fluid collection or intracranial hemorrhage. Visualized paranasal sinuses are clear. The mastoid air cells are well aerated. No acute displaced fractures within the overlying cranium. Impression: No acute intracranial hemorrhage or suspicious mass effect. Reviewed, dictated and finalized at location A. Impression: No acute intracranial hemorrhage or suspicious mass effect.
--- NOTE | ~2024-09-26 | XR_ITS ---
Upright portable view of the abdomen Clinical history: NG tube placed Findings: NG tube in satisfactory position. IVC filter present. Dilated small bowel loops suggest sma ll bowel traction. No free air evident. No abnormal mass lesion or calcification is seen. Osseous str uctures are intact. Impression: NG tube in satisfactory position. Possible small bowel obstruction. Reviewed, dictated and finalized at location . Impression: NG tube in satisfactory position. Possible small bowel obstruction.
--- NOTE | ~2024-09-26 | XR_ITS ---
XR abdomen/kub 1V Ordering provider: Catarino Graves MD History: . Fecal impaction . Comparison: None. FINDINGS: BOWEL: Nonobstructive bowel gas pattern. ORGANOMEGALY: None. SIGNIFICANT PATHOLOGIC CALCIFICATIONS: None. OTHER: No free air is seen under the diaphragm. IVC filter is noted. Catheter is seen in the area of the urinary bladder. IMPRESSION: NO ACUTE ABDOMINAL FINDINGS. Reviewed, dictated and finalized at location A.
--- NOTE | ~2024-09-26 | CT_ITS ---
EXAMINATION: CT abdomen pelvis w con DATE: 09/26/2024 20:37 INDICATION: abdominal pain TECHNIQUE: Computed tomography (CT) of the abdomen and pelvis was performed with 100 mL Omnipaque-350 intravenous contrast. Automated exposure control and iterative reconstruction technique were employe d. The dose-length product was 554.90 mGy-cm. COMPARISON: 09/16/2024. FINDINGS: Motion limited examination. Lower thorax: Bibasilar scar/atelectasis. Small bilateral pleural effusio ns. Liver: Normal. Biliary/Gallbladder: Gallstones. No inflammatory change. Stable intra and extrahepatic bile duct dila tion. Pancreas: No mass or duct dilation. Spleen: Normal. Adrenals:No mass. Kidneys: Bilateral renal cortical thinning. Mild left hydronephrosis with urothelial enhancement. GI tract: Multiple loops of dilated proximal and mid small bowel. Transition point in the mid abdomen (axial 104/196, coronal 49/104), in an area of short segment small bowel wall edema. Normal large seema wel. Normal appendix. Mesentery/Peritoneum: No ascites, mass, or free air. Retroperitoneum: No mass. Atherosclerotic calcifications of intra-abdominal arterial vessels. IVC jason ter. Pelvis: Interval disimpaction. Persistent rectal wall thickening. The urinary bladder is decompressed by White catheter, with the suggestion of urinary bladder wall edema and inflammatory change. Soft Tissues: Soft tissues and body wall unremarkable. Bones: No acute osseous finding. IMPRESSION: Small bilateral pleural effusions. Chronic intra and extra hepatic bile duct dilation. Mid small bowel obstruction, transition point may represent an area of adhesion or short segment infe ctious, inflammatory, or ischemic colitis. Mild left hydronephrosis and urothelial enhancement may represent ascending infection/pyelitis. Cystitis. Proctitis. Reviewed, dictated and finalized at location K. IMPRESSION: Small bilateral pleural effusions. Chronic intra and extra hepatic bile duct dilation. Mid small bowel obstruction, transition point may represent an area of adhesion or short segment infectious, inflammatory, or ischemic colitis. Mild left hydronephrosis and urothelial enhancement may represent ascending inf ection/pyelitis. Cystitis. Proctitis.
--- NOTE | ~2024-09-26 | XR_ITS ---
Supine and upright views of the abdomen Clinical history: Small bowel obstruction COMPARISON: 10/11/2024 Findings: Bowel gas pattern is nonspecific, multiple air distended small bowel loops, prominent stool in the right colon.. No abnormal mass lesion or calcification is seen. IVC filter in place. Osseous structures are intact. Impression: Nonspecific bowel gas pattern, similar to prior exam. Reviewed, dictated and finalized at [facility]. Impression: Nonspecific bowel gas pattern, similar to prior exam.
--- NOTE | ~2024-09-26 | XR_ITS ---
Exam: Abdomen 1V HISTORY: NG placement check TECHNIQUE: Supine images of the lower chest and upper abdomen FINDINGS: Nasogastric tube extends into the left upper quadrant, presumably within the stomach. IMPRESSION: Nasogastric tube in good position and ready for immediate use. Reviewed, dictated and finalized at location A.
--- NOTE | ~2024-09-26 | XR_ITS ---
Supine and upright views of the abdomen Clinical history: Small bowel obstruction COMPARISON: 09/28/2024 Findings: NG tube in place. Multiple distended small bowel loops are again present. Prominent stool p resent right colon. No free air. No abnormal mass lesion or calcification is seen. Osseous structures are intact. IVC filter present. Impression: NG tube in place. Persistent distended small bowel loops, which could reflect small bowel obstruction . Reviewed, dictated and finalized at location M. Impression: NG tube in place. Persistent distended small bowel loops, which could reflect s mall bowel obstruction.
--- NOTE | ~2024-09-26 | XR_ITS ---
EXAMINATION: XR chest 1V portable 10/01/2024 13:40 INDICATION: Patient unresponsive PROCEDURE: AP portable chest COMPARISON: Comparison to multiple prior studies sequentially, with oldest reviewed study dated 03/07. FINDINGS: The lungs are clear. The cardiomediastinal silhouette is within normal limits. There are no pleural effusions. There is no pneumothorax suspected. IMPRESSION: 1: NO ACUTE CARDIOPULMONARY DISEASE. Reviewed, dictated and finalized at location B.
[2024-09-26 18:50] VITALS: BP 106/67; PULSE 140; RESP 24; TEMP 36.6; O2SAT 95
[2024-09-26 19:16] LABS: Basophils Absolute Auto 0.1 K/mm3 (0.0-0.1); Basophils Percent Auto 0.6 % (0.2-1.2); Eosinophils Percent Auto 0.2 % (0-4.4); Hematocrit 38.1 % (37.0-47.0); Hemoglobin 11.8 g/dL (12.0-15.0); Immature Granulocyte Absolute 0.17 K/mm3 (0.00-0.031); Immature Granulocyte Percent A 1.1 % (0-0.5); Lymphocytes Absolute Auto 0.63 K/mm3 (0.9-3.2); Lymphocytes Percent Auto 3.9 % (18.3-44.2); Mean Corpuscular Hemoglobin 28.9 pg (26-34); Mean Corpuscular Volume 93.2 fl (80-100); Mean Platelet Volume 9.7 fl (7.4-10.4); Monocytes Absolute Auto 0.9 K/mm3 (0.1-0.6); Monocytes Percent Auto 5.9 % (2.6-8.5); Neutrophils Absolute Auto 14.1 K/mm3 (1.3-6.7); Neutrophils Percent Auto 88.3 % (45.5-73.1); Platelet Count Result 291 k/mm3 (150-375); Red Blood Count 4.09 M/mm3 (4.2-5.4); Red Cell Distribution Width 15.6 % (11.5-14.5)
[2024-09-26 19:27] LABS: Alanine Aminotransferase 12 U/L (6-35); Albumin Level 3.7 g/dL (3.5-5.1); Alkaline Phosphatase 83 U/L (38-126); Anion Gap 13 mmol/L (4-12); Aspartate Amino Transferase 23 U/L (14-36); Bilirubin,Total 0.5 mg/dL (0.2-1.3); Blood Urea Nitrogen 19 mg/dL (7-17); Calcium 9.6 mg/dL (8.4-10.2); Carbon Dioxide 20 mmol/L (22-30); Chloride 104 mmol/L (98-107); Estimated Glomerular Filt Rate 55; Glucose 134 mg/dL (65-110); Lipase 147 U/L (23-300); Potassium 3.5 mmol/L (3.4-5.0); Sodium 137 mmol/L (137-145)
[2024-09-26 19:32] LABS: Add Urine Microscopic? YES; Appearance Urine Turbid (Clear); Bacteria Urine 3+ /hpf; Bilirubin Urine Negative (Negative); Blood Urine 2+ (Negative); Color Urine Yellow (Yellow); Glucose Urine UA Negative (Negative); Ketones Urine Trace mg/dL (Negative); Leukocyte Esterase Ur 3+ LEU/UL (Negative); Need Manual Microscopic Reviewed; Nitrate Urine Negative (Negative); Protein Urine 2+ mg/dL (Negative); Specific Grav Ur 1.015 (1.001-1.035); Squamous Epithelial Cell Urine None Seen /hpf (Few); Urobilinogen Urine 0.2 mg/dL (<2.0); WBC Urine >100 /hpf (0-3); pH Urine 6.5 (5.0-9.0)
[2024-09-26] MEDS: ONDANSETRON INJ 4 MG/2 ML VIAL IV PUSH (19:51)
[2024-09-26] MEDS: SODIUM CHLORIDE 0.9% IV 1,000 ML 999 ML IV CONT ×2 (19:51→23:03)
--- OUTSIDE RECORDS SUMMARY | 2024-09-26 20:44 | XMS_ITS | Referral Summary ---
Author Organization [facility] Address [address] [place] [address] Care Team Providers Care [employer] Name Role Phone Anish Goldstein MD Primary [...] [id number] Care Teams [employer] Relationship Specialty Start Date End Date Anish Goldstein MD PCP - General Emergency Medicine 06/17/19
--- OUTSIDE RECORDS SUMMARY | 2024-09-26 20:44 | XMS_ITS | Clinical Summary ---
Author Organization [facility] [place] Address [address] [place] [address] Care Team Providers Care Hydrotechnical Specialist Name Role Phone Darren Solomon Primary Care Provider + Source Comments [facility],non-owned Affiliates and Associated Physician Practices is amultiple site organization consisting of ambulatory clinics and hospital sitesin [place], [place], [place] and [place]. This disclosure is being madepursuant to the Care Everywhere program and may not contain all information available regarding this patient. Last updated 18.[facility] [place] Allergies No known active allergies Medications * Be aware that medications may not be up to date on this document. Alwaysverify current medications with the patient. amitriptyline (ELAVIL) 10 MG tablet Take 2 tablets every day by oral route at bedtime for 30 days. Active iron polysaccharides (NIFEREX 150) 150 MG capsule Take 150 mg by mouth once daily Active sertraline (ZOLOFT) 25 MG tablet Take 25 mg by mouth once daily Active oxyCODONE-acetamino phen (PERCOCET) 5-325 MG tablet Take 1 tablet by mouth every 4 hours as needed 30 tablet 03/19/20 18 Active ondansetron, disintegrating, (ZOFRAN ODT) 4 MG tablet Take 1 tablet by mouth every 6 hours as needed for Nausea/Vomiting Allow tablet to dissolve on the tongue 30 tablet 03/19/20 18 Active docusate sodium (COLACE) 100 MG capsule Take 1 capsule by mouth 2 times daily 30 capsule 03/26/20 18 Active menthol-zinc oxide (CALMOSEPTINE) 0.44-20.625 % ointment Apply to affected area 2 times daily 120 g 03/26/20 18 Active polyethylene glycol 3350 (MIRALAX) packet Take 17 g by mouth once daily 1 packet 1 03/27/20 18 Active ALPRAZolam (XANAX) 0.5 MG tablet Take 1 tablet by mouth 3 times daily as needed for Anxiety 04/20/20 18 Active benzonatate (TESSALON) 200 MG capsule Take 1 capsule by mouth 3 times daily as needed for Cough 04/20/20 18 Active diphenhydrAMINE (BENADRYL) 25 MG capsule Take 1 capsule by mouth every 4 hours as needed for Itching 04/20/20 18 Active hydrocortisone (LACTICARE-HC) 1 % lotion Apply to affected area 4 times daily 04/20/20 18 Active ibuprofen (MOTRIN) 600 MG tablet Take 1 tablet by mouth every 6 hours as needed (when working with Physical therapy) 04/20/20 18 Active menthol-zinc oxide (CALMOSEPTINE) 0.44-20.625 % ointment Apply to affected area as needed for Other 04/20/20 18 Active metoprolol tartrate (LOPRESSOR) 25 MG tablet Take 1 tablet by mouth 2 times daily 04/20/20 18 Active ondansetron (ZOFRAN) 2 MG/ML injection 4 mg by Intravenous route every 6 hours as needed for Nausea/Vomiting 04/20/20 18 Active Active Problems Problem Noted Date Diagnosed Date Anemia 03/31/2018 Protein-energy malnutrition 03/26/2018 Pain and swelling of right lower leg 03/24/2018 S/P PICC central line placement 03/13/2018 Overview (03/13/2018): [facility] VAT RT BASILIC Abdominal pain, generalized 03/04/2018 Bacteremia 03/04/2018 Acute pyelonephritis 03/04/2018 Resolved Problems Problem Noted Date Diagnosed Date Resolved Date Cough 03/24/2018 04/21/2018 Immunizations Immunization Administration Dates Next Due INFLUENZA VACCINE, QUADR. (F LUZONE; FLULAVAL; FLUARIX; AFLURIA QUADRIVALENT; 6MO+), 0.5 ML (IIV4) 03/07/2018 Social History Tobacco Use Types Packs/Day Years Used Date Smoking Tobacco: Never Smokeless Tobacco: Never Tobacco Cessation:Counseling Given: No Alcohol Use Standard Drinks/Week Comments No 0 (1 standard drink = 0.6 oz pur e alcohol) Comments No Sex and Gender Information Value Date Recorded Sex Assigned at Not on file Legal Sex Female 6:13 AM TECHNOLOGY APPLICATIONS CONSULTANT Gender Identity Not on file Sexual Orientation Not on file Last Filed Vital Signs Vital Sign Reading Time Taken Comments Blood Pressure 123/50 04/20/2018 12:50 PM TECHNOLOGY APPLICATIONS CONSULTANT Pulse 86 04/20/2018 12:50 PM TECHNOLOGY APPLICATIONS CONSULTANT Temperature 36.4 C (97.5 F) 04/20/2018 12:50 PM TECHNOLOGY APPLICATIONS CONSULTANT Respiratory Rate 18 04/20/2018 12:50 PM TECHNOLOGY APPLICATIONS CONSULTANT Oxygen Saturation 100% 04/20/2018 12:50 PM TECHNOLOGY APPLICATIONS CONSULTANT Inhaled Oxygen Concentration - - Weight 45.4 [...] SCREENING 1958 LIPID TESTING 1958 MAMMOGRAM 1958 HEPATITIS C SCREENING 05/30/1976 DTAP/TDAP/TD VACCINES [...] Onset Date Last Indicated MRSA 03/06/2018 03/06/2018 Insurance MEDICARE MEDICAID - [place] MED[place]ARE Advance Directives * Full Code (Latest Code Status on File) Date Activated Date Inactivated Comments 03/24/2018 8:07 PM 04/20/2018 5:27 PM * Full Code Date Activated Date Inactivated Comments 03/05/2018 1:07 AM 03/19/2018 10:02 PM * Full Code Date Activated Date Inactivated Comments 03/04/2018 11:36 PM 03/05/2018 1:07 AM Care Teams Hydrotechnical Specialist Relationship Specialty Start Date End Date Darren Solomon PA [address] [place] [address] PCP - General Physician Mailhouse Operator 03/02/18
--- OUTSIDE RECORDS SUMMARY | 2024-09-26 20:44 | XMS_ITS | Data Portability ---
Author Organization [facility] Address [address] [place] [address] Assessment No assessment recorded. Plan of Treatment Reminders Order Date Submit Date Provider Last Modified By Organization Details Last Modified Time Details Appointments None recorded . Lab culture, urine 2017 018 [facility] JENISE[facility], [address], [place], [address], 8 10:02:00 CMP, serum or plasma 2017 018 ENRRIQUE JENISE, [address] [place] [address], [address], [place], [address], 8 10:21:16 CBC w/ auto diff 2017 018 ENRRIQUE JENISE, [address] [place], [place] [address], [address], [place], [address], 8 10:21:15 TSH + free T4, serum 2017 018 ENRRIQUE JENISE, [address] [place] [address], [address], [place], [address], 8 10:21:14 vitamin B12 + folate, serum or blood 2017 018 ENRRIQUE JENISE, [address] [place], [place] [address], [address], [place], [address], 8 10:21:11 Referral senior living facility referral 2018 [facility], [address] [place], [address], 9 17:19:23 Procedures None recorded . Surgeries None recorded . Imaging CT, abdomen, w/wo contrast - Loss of appetite , worse over the last 6 months 2017 018 [facility] ([facility]), [address], [place], [address], 8 12:55:03 XR, knee, 4 or more view 2016 017 ENRRIQUE Not available 7 11:49:55 Medication Orders mirtazap ine 15 mg tablet 2018 019 [facility], [address] [place], [address], 9 17:18:48 sertrali ne 50 mg tablet 2018 019 [facility], [address] [place], [address], 9 17:17:59 topirama te 25 mg tablet 2017 018 [facility], [address] [place], [address], 8 10:01:54 omeprazo le 20 mg capsule, delayed release 2017 018 [facility], [address] [place], [address], 8 10:02:36 docusate sodium 100 mg capsule 2017 018 [facility], [address] [place], [address], 8 10:03:16 docusate sodium 100 mg capsule 2017 018 [facility], [address] [place], [address], 8 10:21:22 Linzess 145 mcg capsule 2017 018 [facility], [address] [place] [address], [address], 8 10:21:22 ergocalc iferol (vitamin D2) 1,250 mcg (50,000 unit) capsule 2017 018 [facility], [address] [place] [address], [address], 8 10:30:19 topirama te 25 mg tablet 2016 017 [facility], [address] [place] [address], [address], 7 10:29:20 naproxen 500 mg tablet 2016 017 [facility], [address] [place] [address], [address], 9 16:37:32 amitript yline 10 mg tablet 2016 017 [facility], [address] [place] [address], [address], 9 16:39:32 omeprazo le 20 mg capsule, delayed release 2016 017 [facility], [address] [place] [address], [address], 7 10:26:06 ibuprofe n 800 mg tablet 2016 017 [facility], [address] [place] [address], [address], 9 16:38:38 monteluk ast 10 mg tablet 2016 017 [facility], [address] [place] [address], [address], 7 14:35:51 losartan 25 mg tablet 2016 017 [facility], [address] [place] [address], [address], 7 14:35:54 prometha zine-DM 6.25 mg-15 mg/5 mL oral syrup 2016 017 [place] [address], [address] [place] [address], [address], 7 10:02:43 ranitidi ne 150 mg tablet 2016 017 [place] [address], [address] [place] [address], [address], 9 16:36:18 azithrom ycin 250 mg tablet 2016 017 [place] [address], [address] [place] [address], [address], 7 10:01:35 docusate sodium 100 mg capsule 2016 017 [facility], [address] [place] [address], [address], 7 14:35:59 ferrous sulfate 325 mg (65 mg iron) tablet 2016 017 [place] [address], [address] [place] [address], [address], 7 14:35:52 ergocalc iferol (vitamin D2) 1,250 mcg (50,000 unit) capsule 2016 017 [facility], [address] [facility], [place], [address], 7 14:35:53 Patient TargetsNo targets recorded. Patient Instructions Encounter Date Encounter Id Patient Instructions Last Modified By Organization Details Last Modified Time 07/30/2017 [id number] unable to give u s a urine specimen ...gave her a cup , she will bring us a specimen... jose rafael Not available 07/30/2017 12:58:26 11/13/2018 [id number] let's try to get her back on some meds , can she see Er. Habib? try to make an appointment jose rafael Not available 11/14/2018 18:00:02 Reason for Referral Custodial Facility Ref erral for Depressive disorder depression , unable to care for self Referring Physician: Darren Solomon, Family Medicine, Encounter Date: 11/13/2018 Results Created Date Observation Date Name Description Value Unit Range Abnormal Flag Note LastModifiedBy Organization Detail LastModifiedTime 03/05/20 17 03/05/2017 XR, knee, 4 or more view No observ ation record ed. [email or web address] [facility] ([facility]) [address] [place], [address], 03/18/2017 17:39:20 Result Notes None recorded. Problems Name Problem SNOMED Code Status Onset Date Resolution Date Notes Provider Name and Address Organization Details Recorded Time Dysuria 32189314 Active 2017 Darren Solomon PA-C Attn: Vance andrade,[address] [facility], [place], [address], [place] [facility] 8 10:01:10 Constipation 26356620 Active 2017 Darren Solomon PA-C Attn: Vance andrade,[address] [facility], [place], [address], [place] [facility] 8 10:02:43 Loss of appetite 95133612 Active 2017 Darren Solomon PA-C Attn: Vance andrade,[address] [facility], [place], [address], [place] [facility] 8 10:05:35 Hypertensive disorder 74975560 Active Darren Solomon PA-C Attn: Accountchris g,[address] [facility], [place], [address], [place] [facility] 6 11:31:33 Gastroesophage al reflux disease 475538060 Active Darren Solomon PA-C Attn: Accountchris g,[address] [facility], [place], [address], [place] [facility] 6 11:31:33 Headache 70271518 Active Darren Solomon PA-C Attn: Accountchris g,[address] [facility], [place], [address], [place] [facility] 6 11:17:33 Anxiety 04916896 Active Darren Solomon PA-C Attn: Accountchris andrade,[address] [facility], [place], [address], [place] [facility] 6 11:31:33 Depressive disorder 45309072 Active 2018 Darren Solomon PA-C Attn: Vance andrade,[address] [facility], [place], [address], [place] [facility] 9 17:11:41 Sinusitis 40173806 Active Darren Solomon PA-C Attn: Accountchris g,[address] [facility], [place], [address], [place] [facility] 5 10:35:44 Serous otitis media 21816809 Active Darren Solomon PA-C Attn: Accountin g,[address] [facility], [place], [address], [place] [facility] 5 11:09:34 Allergic rhinitis 19890539 Active Darren Solomon PA-C Attn: Accountin g,[address] [facility], [place], [address], [place] [facility] 6 11:31:33 Hyperlipidemia 21773786 Active Darren Solomon PA-C Attn: Accountin g,[address] [facility], [place], [address], [place] [facility] 6 11:31:33 Acute pharyngitis 653682226 Active Darren Solomon PA-C Attn: Accountin g,[address] [facility], [place], [address], [place] [facility] 5 11:09:34 Acute sinusitis 55738981 Active Darren Solomon PA-C Attn: Accountin g,[address] [facility], [place], [address], [place] [facility] 5 11:09:34 Low back pain 708875338 Active Darren Solomon PA-C Attn: Accountin g,[address] [facility], [place], [address], [place] [facility] 6 11:31:33 Acute otitis media 3704070 Active Darren Soolmon PA-C Attn: Accountin g,[address] [facility], [place], [address], [place] [facility] 6 11:17:33 Insomnia 308026409 Active Darren Solomon PA-C Attn: Accountin g,[address] [facility], [place], [address], [place] [facility] 6 11:17:33 Administration of influenza vaccine Active 2015 Darren Solomon PA-C Attn: Accountin g,[address] [facility], [place], [address], [place] [facility] 6 15:03:30 Vitamin D deficiency 74077074 Active 2015 Darren Solomon PA-C Attn: Accountin g,[address] [facility], [place], [address], [place] [facility] 6 15:07:08 Epigastric pain 70852192 Active 2016 Darren Solomon PA-C Attn: Accountin g,[address], [place], [address] 7 13:42:12 Anemia 772172198 Active 2016 Darren Solomon PA-C Attn: Vance andrade,[address], [place], [address] 7 10:19:43 Pain in left knee Active 2016 Darren Solomon PA-C Attn: Vance g,[address], [place], [address], [place] [facility] 7 14:37:36 Problem Notes None recorded. Procedures Surgical History Date Name Laterality Status Provider Name and Address Organization Details Recorded Time 06/16/2015 repair of colon completed Manjula Briseno [place] [facility] 11/13/2018 16:40:31 Imaging Results Imaging Date Name Status LastModified by Organiz ation Details LastModified Time 03/05/2017 XR, knee, 4 or more view completed [email or web address] [facility] (Imaging) [address] [place], [address], 03/18/2017 17:39:20 Procedure Notes None recorded. Medical [...] Updated DateTime 8 175.26 cm 18 kg/m2 65534.8 7 g 92 % 92 % 109 /min 98.4 [degF] 108 mm[Hg] 70 mm[Hg] Teresa Valdivia MA [place] [facility] 8 09:41:55 Date Recorded Body weight Oxygen saturation Oxygen saturation in Arterial blood by Pulse oximetry Heart rate Body temperature Systolic blood pressure Diastolic blood pressure Provider Name and Address Organization Details Last Updated DateTime 9 31632.8 1 g 97 % 97 % 86 [...] Updated DateTime 7 175.26 cm 19.5 kg/m2 48254.1 9 g 99 % 99 % 80 /min 99.5 [degF] 130 mm[Hg] 78 mm[Hg] Teresa Valdivia MA [facility] 7 14:06:54 Date Recorded Body height Body mass index (BMI) Body weight Oxygen saturation Oxygen saturation in Arterial blood by Pulse oximetry Heart rate Body temperature Systolic blood pressure Diastolic blood pressure Provider Name and Address Organization Details Last Updated DateTime 7 175.26 cm 19 kg/m2 78522.4 2 g 97 % 97 % 92 /min 98.4 [degF] 126 mm[Hg] 74 mm[Hg] Teresa Valdivia MA [facility] 7 10:00:54 Social History Question Answer Notes LastModified by Organizat ion Details LastModified Time Tobacco Smoking Status Never Smoker Not Available [facility] 04/18/2020 03:43:24 Do You Have An Advance Directive? No [id number] Information not available 04/18/2020 What Is Your Level Of Alcohol Consumption? None [id number] Information not available 04/18/2020 What Is Your Level Of Caffeine Consumption? Heavy [id number] Information not available 04/18/2020 What Type Of Diet Are You Following? REGULAR [id number] Information not available 04/18/2020 Are There Any Guns Present In Your Home? No [id number] Information not available 04/18/2020 Hard Of Hearing Or Deaf In One Or Both Ears? No Information not available 09/21/2014 Legally Blind In One Or Both Eyes? No Information not available 09/21/2014 What Was The Date Of Your Most Recent Tobacco Screening? 11/13/2018 [id number] Information not available 04/18/2020 Performs Monthly Self-breast Exam? Yes Information not available 09/21/2014 Seat Belts Used Routinely Yes Information not available 09/21/2014 Smoke Alarm In Home Yes Information not available 09/21/2014 How Much Tobacco Do You Smoke? No [id number] Information not available 04/18/2020 Do You Use Sunscreen Routinely? No [id number] Information not available 04/18/2020 Sex: Unknown Functional Status Question Answer Note LastModified by Organization D etails LastModified Time What is your exercise level? None [id number] Information not available 04/18/2020 Mental Status None [...] Blood Transfusion N MRSA N Emphysema N Blood Clots N COPD N Depression Y Pneumonia N Peripheral Arterial Disease N Premature N Edema N TIA N Headaches/Migraines N Anxiety Disorder N Obesity N Infertility N Polyps N Acid Reflux (GERD) Y Hematuria N Stroke N Neck Injury N Polio N Hospital Admission other than N Neurologic Disorder N Other Sleep Disorders N Rheumatoid Arthritis N Fibromyalgia N Abdominal Aortic Aneurysm Repair N Kidney Disease N Heart Conditions N Heart Disease/Heart Problems N Hospitalizations N Brain Tumors N Acne N Eating Disorder N Skin Problems N Constipation N Meningitis N Tuberculosis N Cerebral Palsy N Myocardial Infarction N Asthma N Substance Abuse N Peripheral Vascular Disease N Vertigo N Sleep Disorder N Cirrhosis N Pulmonary Embolism N Chicken Pox N Flomax Use Past or Present N Hematologic Disease N Anxiety/Depression N Thyroid Disease N Colon Cancer N Glaucoma N Lung Disease N Developmental or Behavioral Disorders N Bipolar N Pacemaker N Diverticulitis/Diverticulosis N Anesthesia Complications N Orthopedic Problems N Orthotics N Head Injury/Concussion N Congenital Anomalies N Santiago Bite N Chronic Kidney Disease N Endometriosis N Liver Disease N Dialysis N Schizophrenia N Speech Delay N Chronic Obstructive Pulmonary Disease N Parkinson's Disease N Thyroid Problems N Developmental Delay N GI Problems N Anemia N Immune System Disorder N Multiple Sclerosis N Colon Polyps N Heart Attack ([place]) N Diabetes N Cardiomyopathy N Blood Transfusions N Heart Problems/Murmur N Eye Trauma N Congestive Heart Failure (CHF) N Valvular Heart Disease N Hyperlipidemia N Double Vision N Abuse/Domestic Violence N Hepatitis B N Lupus N Epilepsy/Seizures N Reflux/GERD N Aneurysm N Bronchitis N Heart Disease N Hypertension N Pre-Eclampsia N Heart Failure N Other N Gout [...] LNP-S, PF, 30 mcg/0.3 mL dose completed [facility], [place] - [facility] 12/13/2020 15:31:14 COVID-19, mRNA, LNP-S, PF, 30 mcg/0.3 mL dose 1 completed [facility] [place] - [place] 12/13/2020 15:31:32 Influenza, split virus, quadrivalent, preservative 6 completed Not Available [facility] 07/03/2019 02:48:30 Influenza, split virus, quadrivalent, preservative 7 completed Not Available [facility] 07/03/2019 02:33:59 Influenza, split virus, quadrivalent, preservative 5 completed Not Available [facility] 07/03/2019 02:43:44 Past Encounters Encounter ID Performer Location Encounter Start Date Encounter Closed Date Diagnosis/Indication Diagnosis SNOMED-CT Code Diagnosis ICD10 Code Diagnosis Note [id number] Lorrie (Adult Med) [address] [place] [id number] 05/05/2014 11:33:37 05/05/2014 12:28:55 Hypertensive disorder 03837495 Gastroesop hageal reflux disease 912762378 Headache 27603497 Anxiety 03603853 [id number] LAURA Callahan (Adult Med) [address] [place] [id number] 09/21/2014 09:48:35 09/21/2014 11:14:58 Headache 84973551 Sinusitis 46986605 Serous otitis media 71451550 Hypertensive disorder 74425091 Gastroesop hageal reflux disease 712408037 Anxiety 70671711 [id number] Sabi Andrew (Adult Med) [address] [place] [id number] 01/18/2015 09:58:06 01/18/2015 14:11:30 Sinusitis 19334548 Serous otitis media 28270546 Headache 14578294 Hypertensive disorder 18495170 Gastroesop hageal reflux disease 050165362 Anxiety 98758889 Allergic rhinitis 56542107 [id number] Renetta Andrew (Adult Med) [address] [place] [id number] 03/16/2015 10:40:07 03/17/2015 16:24:53 Active or passive immunization 573104331 Z23 [facility] 68366855 E78.5 [id number] LAURA Callahan (Adult Med) [address] [place] [address] 05/16/2015 10:33:10 05/16/2015 11:08:50 Acute pharyngitis 281030541 J02.9 Acute sinusitis 30452260 J01.90 Allergic rhinitis 195955 04 J30.9 Anxiety 50346910 F41.9 Gastroesop hageal reflux disease 675598406 K21.9 Headache 69965982 R51 Hyperlipidemia 80811435 E78.5 Hypertensive disorder 38 200951 I10 Serous otitis media 8032 7007 H65.03 [id number] LAURA Callahan (Adult Med) [address] [place] [id number] 07/18/2015 10:22:30 07/18/2015 17:31:35 Anxiety 69211555 F41.9 Gastroesop hageal reflux disease 905058751 K21.9 Headache 00555909 R51 Hyperlipidemia 05426333 E78.5 Hypertensive disorder 38 416705 I10 Low back pain 417393595 M54.5 [id number] LAURA Callahan (Adult Med) [address] [place] [id number] 10/16/2015 10:08:06 10/16/2015 11:31:31 Acute otitis media 1804630 H66.92 Allergic rhinitis 786123 04 J30.9 Anxiety 60891180 F41.9 Gastroesop hageal reflux disease 090985568 K21.9 Hyperlipidemia 78979854 E78.5 Hypertensive disorder 38 438252 I10 Low back pain 730065659 M54.5 [id number] LAURA Callahan (Adult Med) [address] [place] [id number] 12/28/2015 10:58:36 12/28/2015 11:18:58 Acute otitis media 6999747 H66.92 Headache 89014974 R51 Insomnia 517126494 G47.0 0 [id number] LAURA Callahan (Adult Med) [address] [place] [id number] 04/04/2016 14:32:04 04/04/2016 15:17:27 Administration of influenza vaccine 06733734 Z23 Low back pain 870373138 M54.5 Headache 63553587 R51 Vitamin D deficiency 347 60550 E55.9 [id number] MD Lorrie Magallon (Adult Med) [address] [place] [id number] 07/08/2016 11:49:09 07/08/2016 13:48:47 Vitamin D deficiency 85753565 E55.9 Insomnia 049772350 G47.0 0 Gastroesop hageal reflux disease 553923215 K21.9 Low back pain 626300023 M54.5 Hypertensive disorder 38 955542 I10 Anxiety 69669139 F41.9 Hyperlipidemia 91507659 E78.5 Allergic rhinitis 417876 04 J30.9 Epigastric pain 39382869 R10.13 [id number] LAURA Callahan (Adult Med) [address] [place] [address] 09/03/2016 10:12:48 09/03/2016 10:31:29 Hyperlipidemia 28373877 E78.5 Hypertensive disorder 38 486770 I10 Acute otitis media 96799 03 H66.92 [id number] LAURA Callahan (Adult Med) [address] [place] [id number] 12/02/2016 09:45:17 12/03/2016 11:38:54 Anemia 198892313 D64.9 Vitamin D deficiency 347 35727 E55.9 Insomnia 847330650 G47.0 0 Gastroesop hageal reflux disease 483742739 K21.9 Low back pain 452178819 M54.5 Hypertensive disorder 38 629384 I10 Anxiety 33131554 F41.9 Hyperlipidemia 54603537 E78.5 Allergic rhinitis 279512 04 J30.9 [id number] LAURA Callahan (Adult Med) [address] [place] [id number] 02/27/2017 13:40:19 02/27/2017 14:44:54 Acute pharyngitis 515754497 J02.9 Anemia 787367491 D64.9 Vitamin D deficiency 347 17011 E55.9 Allergic rhinitis 749247 04 J30.9 Acute sinusitis 51713968 J01.90 Hyperlipidemia 38799652 E78.5 Hypertensive disorder 38 855394 I10 Gastroesop hageal reflux disease 390406882 K21.9 Pain in left knee 785688 5114 72636 M25.562 fell 2 months ago [id number] MICHAEL Olivier (Adult Med) [address] [place] [id number] 03/03/2017 13:40:35 03/03/2017 18:05:57 Administration of influenza vaccine 37109806 Z23 [id number] LAURA Callahan (Adult Med) [address] [place] [id number] 04/29/2017 09:51:05 04/29/2017 10:37:01 Gastroesophageal reflux disease 593012037 K21.9 Pain in left knee 772011 6780 76770 M25.562 fell 2 months ago Hyperlipidemia 42224853 E78.5 Allergic rhinitis 323803 04 J30.9 Insomnia 215607362 G47.0 0 Headache 38365777 R51 [id number] LAURA Callahan (Adult Med) [address] [place] [id number] 07/30/2017 09:28:34 07/30/2017 10:50:02 Headache 69709800 R51 Epigastric pain 73319782 R10.13 Gastroesop hageal reflux disease 166518119 K21.9 Dysuria 08604695 R30.0 Anemia 156169463 D64.9 Constipation 07166545 K5 9.00 Loss of appetite 7933968 6 R63.0 Vitamin D deficiency 347 70298 E55.9 [id number] LAURA Callahan (Adult Med) [address] [place] [id number] 11/13/2018 15:29:56 11/16/2018 09:20:27 Depressive disorder 03658963 F33.8 Vitamin D deficiency 347 81990 E55.9 Insomnia 808183651 G47.0 0 Gastroesop hageal reflux disease 721008593 K21.9 Low back pain 066483573 M54.5 Hyperlipidemia 08544160 E78.5 Health Concerns Section Related Observation LastModified by Organization Detai ls LastModified Time None Recorded Concern Status LastModified by Organization Details LastModified Time None Recorded Advance Directives Directive N: Payers Encounter Date Sequence Insurance Name Policy Number Policy Bird Covered Member ID Brid Member ID Guarantor Name 02/27/2017 1 [place] Patsy A Gross [id number] Patsy Gross 02/27/2017 1 [place] OR [place]IC[place] REPLACEMENT PRIMARY) Patsy Gross [id number] Patsy Gross 03/03/2017 1 [place] P[place]y A Gross [id number] Patsy Gross 03/03/2017 1 [place]PLACEMENT [place]IMARY) Patsy Gross [id number] Patsy Gross 04/29/2017 1 [place] P[place]y A Gross [id number] Patsy Gross 04/29/2017 1 [place]PLACEMENT [place]) Patsy Gross [id number] Patsy Gross 07/30/2017 1 [place] Patsy A Gross [id number] Patsy Gross 07/30/2017 1 [place] REPLACEMENT PRIMARY) Patsy Gross [id number] Patsy Gross 11/13/2018 1 [place] Patsy A Gross [id number] Patsy Gross 11/13/2018 1 [place] OR [place]IC[place] REPLACEMENT [place]IMARY) Patsy Gross [id number] Patsy Gross Notes Date Note Type Note Provider Name and Address Organization Details Recorded Time 02/27/2017 text/html sore throat 1 week Darren Solomon PA-C Attn: Accounting,[address] [facility], [place], [address], [place] [facility] 02/27/2017 16:51:59 04/29/2017 text/html she saw ortho fo r her left knee fracture .... no brace yet , Darren Solomon PA-C Attn: Accounting,[address] [facility], [place], [address], [place] [facility] 04/29/2017 14:26:48 07/30/2017 text/html not eating, mood y , naylor when I pee... Darren Solomon PA-C Attn: Accounting,[address] [facility], [place], [address], [facility] 07/30/2017 12:59:05 11/13/2018 text/html she has not seen Dr. Buenrostro in a long time , no longer taking her meds , is cranky , up all night , agitated , uncooperative ... Darren Solomon PA-C Attn: Accounting,[address] [facility], [place], [address], [facility] 11/14/2018 18:00:12 OBGyn Episode No OBEpisode recorded.
--- OUTSIDE RECORDS SUMMARY | 2024-09-26 20:45 | XMS_ITS | Clinical Summary ---
Author Organization [facility] Address [address] [place] [address] Care Team Providers Care Lotus Notes Developer Name Role Phone Anish Goldstein MD Primary [...] PICC central line placement 03/13/2018 Overview (07/19/2019): [facility] VAT RT BASILIC Abdominal pain, generalized 03/04/2018 [...] Not on file Insurance MEDICARE IDPA MEDICARE [facility] Care Teams Lotus Notes Developer Relationship Specialty Start Date End Date Anish Goldstein MD PCP - General Emergency Medicine 06/17/19
--- OUTSIDE RECORDS SUMMARY | 2024-09-26 20:45 | XMS_ITS | CONTINUITY OF CARE DOCUMENT ---
Author Name angel ortiz Address Unknown Organization [facility] Address [address] [facility] [address] [place] [address] Phone [phone] Care Team Providers Care Relocation Counselor Name Role Phone Dale ANN, Janie Unavailable [phone] Janie Hunter MD Unavailable [phone] 1 INSURANCE PROVIDERS Payer name Policy type / Coverage type [employer] red alliance party ID [facility] Medicaid 1 [id number] [place] Medicare [id number]
[2024-09-26 21:21] LABS: Lactic Acid Reflex 1.1 mmol/L (0.7-2.0)
--- NOTE | 2024-09-26 21:55 | ECG_ITS ---
Test Date: 2024-09-26 22:21:19 Measurements Intervals [place] Rate: 122 P: 59 DE: 154 QRS: 36 QRSD: 83 T: 0 QT: 337 QTc: 481 Interpretive Statements SINUS TACHYCARDIA POSSIBLE RIGHT VENTRICULAR CONDUCTION DELAY BORDERLINE T WAVE ABNORMALITY- ANTEROLAT/INF LEADS BASELINE ARTIFACT- I, II, III, AVR, AVL, AVF, V1-V2 ABNORMAL ECG No previous ECG available for comparison Electronically Signed On 09-27-2024 06:24:25 CDT by Loki Chacon D.O.
--- NOTE | 2024-09-26 22:23 | ED_ITS ---
HPI - General Adult General Chief complaint: Abdominal Pain Stated complaint: abd pain, h/o SBO Time Seen by Provider: 09/26/24 19:16 History of Present Illness HPI narrative: Patient is a 64-year-old female who presents emergency department chief complaint of abdominal pain nausea vomiting. Patient was recently in the hospital for small-bowel obstruction any UTI. The patient has had multiple bouts of vomiting and was given EMS prior to arrival by EMS Related Data Home Medications ?Medication ?Instructions ?Recorded ?Confirmed ?Last Taken ?Type hydroxyzine pamoate 25 mg capsule 25 mg PO BID 03/07/21 09/16/24 Unknown History lactulose 10 gram/15 mL oral 10 g PO TID PRN Constipation 03/07/21 09/16/24 Unknown History solution mirtazapine 15 mg tablet 15 mg PO HS 03/07/21 09/16/24 Unknown History montelukast 10 mg tablet 10 mg PO DAILY 03/07/21 09/16/24 Unknown History pantoprazole 40 mg tablet,delayed 40 mg PO DAILY 03/07/21 09/16/24 Unknown History release sertraline 50 mg tablet 50 mg PO DAILY 03/07/21 09/16/24 Unknown History simvastatin 20 mg tablet 20 mg PO HS 03/07/21 09/16/24 Unknown History sucralfate 1 gram tablet 1 g PO BID 03/07/21 09/16/24 Unknown History Lactobacillus acidophilus 1 cap PO DAILY 03/08/21 09/16/24 Unknown History (Acidophilus capsule) acetaminophen 500 mg capsule 1,000 mg PO Q6H PRN Pain 03/08/21 09/16/24 Unknown History ascorbate calcium (vitamin C) 500 500 mg PO BID 03/08/21 09/16/24 Unknown History mg tablet cholecalciferol (vitamin D3) 25 4,000 unit PO DAILY 03/08/21 09/16/24 Unknown History mcg (1,000 unit) tablet ergocalciferol (vitamin D2) 25,000 50,000 unit PO WEEKLY 03/08/21 09/16/24 Unknown History unit capsule ferrous sulfate 325 mg (65 mg 325 mg PO BID 03/08/21 09/16/24 Unknown History iron) tablet (Iron (ferrous sulfate)) multivitamin with minerals (Daily 1 tablet PO DAILY 03/08/21 09/16/24 Unknown History Multivitamin-Minerals tablet) potassium chloride 10 mEq 10 meq PO BID 09/16/24 09/16/24 Unknown History tablet,extended release Allergies Allergy/AdvReac Type Severity Reaction Status Date / Time lorazepam Allergy Unknown Verified 03/07/21 14:22 Review of Systems 2 Review of Systems: A 10 system review of systems was completed on the patient and is negative except for what is stated in the HPI. Nursing and ancillary documentation was reviewed. [facility] Past Medical History Medical History Presence of IVC filter Hypertension Neurogenic bladder Deep venous thrombosis Coronary artery disease Poorly documented and patient denies. Anxiety Chronic anemia Arthritis Gastroesophageal reflux disease Ulcerative colitis Hyperlipidemia Dementia Chronic indwelling White catheter Surgical History Surgical History History of colon resection Family History Family History Other Family history unknown Social History Social History Social History: Surrogate decision maker: Amanda Parker, sibling. Code status: Full code. Smoking status: Unknown if ever smoked Alcohol intake: never Substance use: never Do You Feel Safe in your Home?: Yes Lack of Transportation: No Lack of Food: Never True Current Housing: I Do Not Have Housing Concerned About Future Housing: No Difficulty Paying Gas/Electric Bills: No Difficulty Paying for Meds: No Currently Unemployed: No Education: Don't Know Difficulty w/ Childcare or Family Care: No Additional living arrangements comments: The patient is a resident at [facility]. Additional occupation/education comments: Disabled. Spiritual care concerns: No Exam 2 Narrative: GENERAL: Well-appearing, well-nourished, and in no acute distress. HEAD: Normocephalic, atraumatic. EYES: PERRLA and EOMI. ENT: Nares clear, no rhinorrhea or epistaxis. Mucous membranes moist. NECK: Supple. CHEST: Clear to auscultation. No respiratory distress. HEART: Regular rate and rhythm. No murmur heard. Normal peripheral pulses. ABDOMEN: Soft, nontender, nondistended, normal active bowel sounds. EXTREMITIES: Normal range of motion. No edema. SKIN: Warm, dry, no rash. NEURO: No focal deficits. Alert and oriented x3. PSYCH: Normal mood and affect. Course Vital Signs Vital signs: Vital Signs Temperature 36.6 C 09/26/24 18:50 Pulse Rate 140 H 09/26/24 18:50 Respiratory Rate 24 H 09/26/24 18:50 Blood Pressure 106/67 09/26/24 18:50 Pulse Oximetry 95 09/26/24 18:50 Oxygen Delivery Room Air 09/26/24 18:50 Temperature 36.6 C 09/26/24 18:50 Pulse Rate 116 H 09/26/24 23:09 Respiratory Rate 14 09/26/24 23:09 Blood Pressure 136/76 09/26/24 23:09 Pulse Oximetry 98 09/26/24 23:09 Oxygen Delivery Room Air 09/26/24 18:50 Medical Decision Making MDM Narrative Medical decision making narrative: Differential diagnosis includes bowel obstruction, UTI, sepsis, intra-abdominal infection CT scan shows evidence of a small-bowel obstruction Laboratory studies showed a white count of 16.0 electrolytes showed a BUN of 19 and creatinine 1.0 lactate was 1.1 urinalysis showed greater than 100 whites in the urine And NG tube has been ordered for the patient the patient is also received fluid resuscitation in the emergency department Case was discussed with surgery who will consult Patient started on Rocephin for the UTI Vital Signs Vital Signs: Vital Signs Temperature 36.6 C 09/26/24 18:50 Pulse Rate 140 H 09/26/24 18:50 Respiratory Rate 24 H 09/26/24 18:50 Blood Pressure 106/67 09/26/24 18:50 Pulse Oximetry 95 09/26/24 18:50 Oxygen Delivery Room Air 09/26/24 18:50 Temperature 36.6 C 09/26/24 18:50 Pulse Rate 116 H 09/26/24 23:09 Respiratory Rate 14 09/26/24 23:09 Blood Pressure 136/76 09/26/24 23:09 Pulse Oximetry 98 09/26/24 23:09 Oxygen Delivery Room Air 09/26/24 18:50 Lab Data 09/26/24 18:59 09/26/24 18:59 Labs: Lab Results 09/26/24 09/26/24 Range/Units 18:59 20:53 WBC 16.0 H (4.5-10.0) K/mm3 RBC 4.09 L (4.2-5.4) M/mm3 Hgb 11.8 L (12.0-15.0) g/dL Hct 38.1 (37.0-47.0) % MCV 93.2 (80-100) fl MCH 28.9 (26-34) pg MCHC 31.0 L (32-36) g/dl RDW 15.6 H (11.5-14.5) % Plt Count 291 D (150-375) k/mm3 MPV 9.7 (7.4-10.4) fl Immature Gran % (Auto) 1.1 H (0-0.5) % Neut % (Auto) 88.3 H (45.5-73.1) % Lymph % (Auto) 3.9 L (18.3-44.2) % [place] % (Auto) 5.9 (2.6-8.5) % Eos % (Auto) 0.2 (0-4.4) % Baso % (Auto) 0.6 (0.2-1.2) % Lymph # (Auto) 0.63 L (0.9-3.2) K/mm3 [place] # (Auto) 0.9 H (0.1-0.6) K/mm3 Eos # (Auto) 0.0 (0-0.3) K/mm3 Baso # (Auto) 0.1 (0.0-0.1) K/mm3 Abs Immat Gran (auto) 0.17 H (0.00-0.031) K/mm3 Absolute Neuts (auto) 14.1 H (1.3-6.7) K/mm3 Absolute Nucleated RBC 0.000 (0.0-0.012) K/mm3 Nucleated RBC % 0.0 (0.0-0.2) % Sodium 137 (137-145) mmol/L Potassium 3.5 (3.4-5.0) mmol/L Chloride 104 (98-107) mmol/L Carbon Dioxide 20 L (22-30) mmol/L Anion Gap 13 H (4-12) mmol/L BUN 19 H (7-17) mg/dL Creatinine 1.00 (0.7-1.0) mg/dL Estim Creat Clear Calc Not Reportable Estimated GFR 55 L (59 - ) Glucose 134 H (65-110) mg/dL Lactic Acid 1.1 (0.7-2.0) mmol/L Calcium 9.6 (8.4-10.2) mg/dL Total Bilirubin 0.5 (0.2-1.3) mg/dL AST 23 (14-36) U/L ALT 12 (6-35) U/L Alkaline Phosphatase 83 (38-126) U/L Total Protein 6.0 L (6.3-8.2) g/dL Albumin 3.7 (3.5-5.1) g/dL Lipase 147 (23-300) U/L Urine Color Yellow (Yellow) Urine Appearance Turbid H (Clear) Urine pH 6.5 (5.0-9.0) Ur Specific [place] 1.015 (1.001-1.035) Urine Protein 2+ H (Negative) mg/dL Urine Glucose (UA) Negative (Negative) mg/dL Urine Ketones Trace H (Negative) mg/dL Ur Blood (Man) 2+ H (Negative) Urine Nitrate Negative (Negative) Urine Bilirubin Negative (Negative) Urine Urobilinogen 0.2 (<2.0) mg/dL Add Ur Microanalysis Reviewed Leukocyte Esterase Rfl 3+ H (Negative) CURLY/UL Urine RBC 11-20 H (0-2) /hpf Urine WBC >100 H (0-3) /hpf Ur Squamous Epith Cells None seen (Few) /hpf Urine Bacteria 3+ H /hpf Urine Casts 11-20 Discharge Plan Discharge Clinical Impression: Small bowel obstruction, Acute UTI Patient Disposition: Still a Patient Condition: Stable
[2024-09-26 23:09] VITALS: BP 136/76; PULSE 116; RESP 14; O2SAT 98
--- NOTE | 2024-09-26 23:10 | PC.NURSE ---
Wendy OCASIO at [facility] updated on pts care plan.
[2024-09-26 23:40] VITALS: BMI 20.7
[2024-09-26 23:50] VITALS: BP 132/52; PULSE 118; RESP 18; TEMP 36.4; O2SAT 97
[2024-09-27] VITALS (8 sets, daily range): BP systolic 116–138; BP diastolic 60–98; PULSE 93–113; RESP 12–20; TEMP 36.3–37; O2SAT 95–99
--- NOTE | 2024-09-27 | PC.NURSE ---
Wendy at [facility] to fax pts papers to [facility]
--- NOTE | 2024-09-27 00:29 | ADMGEN ---
This patient, Patsy Hugo, was admitted to 2 Medical Room 240-. Patient/family oriented to hospital policies and general routines including ID bracelet, bed and alarms, visiting hours, pain management, procedures, bathroom and other care routines, personal items, smoking policy, room service/diet, and visiting hours. Information on how to activate the Rapid Response Team has been discussed. Patient/Family are encouraged to report perceived risks to care and to ask questions if they do not understand what they are told or what they should do.
[2024-09-27] MEDS: SODIUM CHLORIDE 0.9% IV 1,000 ML 125 ML IV CONT (00:36)
--- NOTE | 2024-09-27 05:05 | P.HP_ITS ---
H&P: HPI History of Present Illness Date/Time: 09/27/24 05:05 Chief Complaint: 1. Abdominal pain 2. Nausea 3. Vomitinga Narrative: Patsy Hugo is a 64-year-old female with a medical history significant for dementia, sedentary status, pressure ulcers around the sacrum, constipation, depression, GERD, dyslipidemia, chronic indwelling White catheter A resident of [facility], she was recently evaluated and managed for sepsis, fecal impaction an SBO (09/16-02/07) and discharged after blood transfusion, IV antibiotic therapy. She remains stable until hours prior to admission when the ECF staff were con cerned about abdominal pain with nausea and vomiting; symptoms aggravated by meals/fluids, alleviated by fasting; associated with some anxiety and restlessness. With no records of fevers, flank pain, hematuria, skin/joint changes. She does not smoke/chew tobacco, drink alcohol, or consume recreational/illicit drugs Work-up findings: CTAP: Small bilateral pleural effusions. Chronic intra and extra hepatic bile duct dilation. Mid small bowel obstruction, transition point may represent an area of adhesion or short segment infectious, inflammatory, or ischemic colitis. Mild left hydronephrosis and urothelial enhancement may represent ascending infection/pyelitis. Cystitis. Proctitis. WBC 16; HGB 11.8; MCV 93; PLT 291 Na 137; K 3.5; Cl 104; CO2 20; HGB 13; BUN 19; CR 1; GFR 55 Unremarkable liver chemistries UA: Negative nitrite, 3+ leukocyte esterase, greater than 700 WBC, 3+ bacteria LA: 1.1 Patsy Hugo will be admitted, evaluated, and managed for SBO Review of Systems Review of Systems: All systems reviewed & are unremarkable except as noted in HPI and below ROS unobtainable: Yes unobtainable due to medical condition PMFSH Past Medical History Medical History Presence of IVC filter Hypertension Neurogenic bladder Deep venous thrombosis Coronary artery disease Poorly documented and patient denies. Anxiety Chronic anemia Arthritis Gastroesophageal reflux disease Ulcerative colitis Hyperlipidemia Dementia Chronic indwelling White catheter Surgical History Surgical History History of colon resection Family History Family History Other Family history unknown Social History Social History Social History: Surrogate decision maker: Amanda Parker, sibling. Code status: Full code. Smoking status: Unknown if ever smoked Alcohol intake: never Substance use: never Do You Feel Safe in your Home?: Yes Lack of Transportation: No Lack of Food: Never True Current Housing: I Have Housing Concerned About Future Housing: No Difficulty Paying Gas/Electric Bills: No Difficulty Paying for Meds: No Currently Unemployed: No Education: High School Diploma/GED Difficulty w/ Childcare or Family Care: No Additional living arrangements comments: The patient is a resident at [facility]. Additional occupation/education comments: Disabled. Spiritual care concerns: No Meds Home Medications and Allergies Home Medications ?Medication ?Instructions ?Recorded ?Confirmed ?Type hydroxyzine pamoate 25 mg capsule 25 mg PO BID 03/07/21 09/27/24 History lactulose 10 gram/15 mL oral 10 g PO TID PRN Constipation 03/07/21 09/27/24 History solution mirtazapine 15 mg tablet 15 mg PO HS 03/07/21 09/27/24 History montelukast 10 mg tablet 10 mg PO DAILY 03/07/21 09/27/24 History pantoprazole 40 mg tablet,delayed 40 mg PO DAILY 03/07/21 09/27/24 History release sertraline 50 mg tablet 50 mg PO DAILY 03/07/21 09/27/24 History simvastatin 20 mg tablet 20 mg PO HS 03/07/21 09/27/24 History sucralfate 1 gram tablet 1 g PO BID 03/07/21 09/27/24 History Lactobacillus acidophilus 1 cap PO DAILY 03/08/21 09/27/24 History (Acidophilus capsule) acetaminophen 500 mg capsule 1,000 mg PO Q6H PRN Pain 03/08/21 09/27/24 History ascorbate calcium (vitamin C) 500 500 mg PO BID 03/08/21 09/27/24 History mg tablet ergocalciferol (vitamin D2) 25,000 50,000 unit PO WEEKLY 03/08/21 09/27/24 History unit capsule ferrous sulfate 325 mg (65 mg 325 mg PO BID 03/08/21 09/27/24 History iron) tablet (Iron (ferrous sulfate)) multivitamin with minerals (Daily 1 tablet PO DAILY 03/08/21 09/27/24 History Multivitamin-Minerals tablet) potassium chloride 10 mEq 10 meq PO BID 09/16/24 09/27/24 History tablet,extended release amoxicillin 875 mg-potassium 1 tablet PO Q12H #6 tabs 09/21/24 09/27/24 Rx clavulanate 125 mg tablet docusate sodium 100 mg capsule 100 mg PO BID constipation #60 09/21/24 09/27/24 Rx caps polyethylene glycol 3350 17 gram 17 g PO QAM #30 ea 09/21/24 09/27/24 Rx oral powder packet (Miralax) ergocalciferol (vitamin D2) 50 mcg 100 mcg PO DAILY 09/27/24 09/27/24 History (2,000 unit) tablet Allergies Allergy/AdvReac Type Severity Reaction Status Date / Time lorazepam Allergy Unknown Verified 03/07/21 14:22 Vital Signs Vital Signs - 24 hr 09/26/24 18:50 09/26/24 23:09 09/26/24 23:50 Temperature 97.9 F 97.6 F Pulse Rate 140 H 116 H 118 H Respiratory Rate 24 H 14 18 Blood Pressure 106/67 136/76 132/52 L Pulse Oximetry 95 98 97 Oxygen Delivery Room Air 09/27/24 00:45 09/27/24 04:00 09/27/24 04:49 Temperature 97.3 F L Pulse Rate 108 H 113 H Respiratory Rate 20 Blood Pressure 134/67 Pulse Oximetry 99 Oxygen Delivery Room Air Exam Const: General: in distress HENMT: Ears: TM's normal bilaterally Face/Nose/Sinus: Normal nares present Eyes: Sclera: sclerae normal Pupils: Equal, round and reactive pupils present Neck: Neck: supple Resp: Effort & Inspection: normal respiratory effort Cardio: Rate: tachycardic Rhythm: regular rhythm GI: Auscultation: abnormal bowel sounds Skin: General skin exam: normal color Neuro: General: No gait normal Motor exam (neuro): strength not 5/5 throughout and tone not normal throughout Extrem: General: abnormal to inspection Psych: Mental Status: mental status grossly abnormal H&P: Results Labs Labs: Short CBC 09/26/24 Range/Units 18:59 WBC 16.0 H (4.5-10.0) K/mm3 Hgb 11.8 L (12.0-15.0) g/dL Hct 38.1 (37.0-47.0) % Plt Count 291 D (150-375) k/mm3 BMP 09/26/24 18:59 Sodium 137 Potassium 3.5 Chloride 104 Carbon Dioxide 20 L BUN 19 H Creatinine 1.00 Glucose 134 H Calcium 9.6 Liver Function 09/26/24 Range/Units 18:59 Total Bilirubin 0.5 (0.2-1.3) mg/dL AST 23 (14-36) U/L ALT 12 (6-35) U/L Alkaline Phosphatase 83 (38-126) U/L Albumin 3.7 (3.5-5.1) g/dL Urine 09/26/24 Range/Units 18:59 Urine Color Yellow (Yellow) Urine Appearance Turbid H (Clear) Urine pH 6.5 (5.0-9.0) Ur Specific [place] 1.015 (1.001-1.035) Urine Protein 2+ H (Negative) mg/dL Urine Glucose (UA) Negative (Negative) mg/dL Assessment and Plan Assessment and plan (1) Bowel obstruction: Qualifiers: Intestinal obstruction type: fecal impaction Qualified Code(s): K56.41 - Fecal impaction Code(s): K56.609 - Unspecified intestinal obstruction, unspecified as to partial versus complete obstruction Status: Acute (2) Small bowel obstruction: Code(s): K56.609 - Unspecified intestinal obstruction, unspecified as to partial versus complete obstruction Status: Acute (3) Hypertension: Qualifiers: Hypertension type: primary hypertension Qualified Code(s): I10 - Essential (primary) hypertension Code(s): I10 - Essential (primary) hypertension Status: Chronic Plan Acute and principal conditions 1. SBO 2. Cystitis 3. Proctitis 4. Mild left hydronephrosis; Pyelitis 5. Small bilateral effusions 6. CAUTI 7. HAGMA Rx: * NPO; IVFs; * Anti-emetics; Optimize analgesia * General surgery consulted * Ceftriaxone Chronic and stable conditions * Pressure wounds, Buttocks. unspecified stage * Dementia. * DVT * GERD * Dyslipidemia. * Hypertension. 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 Full * Nutrition. NPO * VTE prophylaxis. SCDs; SONIA Quality VTE Prophylaxis VTE prophylaxis: mechanical ordered and pharmacologic ordered Hospitalist MIPS Advance Care Plan I have confirmed that the patient's Advanced Care Plan is present, code status is documented, or surrogate decision maker is listed in patient medical record.: Yes Medication Reconciliation I have utilized all available resources to obtain, update and review the patients current medications (includes all prescriptions, OTC, herbals, cannabis, and nutritional supplements).: Yes The patient is not eligible for med reconciliation; the patient is in a emergent medical situation where delaying treatment would jeopardize the patients health.: Yes
[2024-09-27 05:31] LABS: Basophils Absolute Auto 0.1 K/mm3 (0.0-0.1); Basophils Percent Auto 0.8 % (0.2-1.2); Eosinophils Percent Auto 0.2 % (0-4.4); Hematocrit 31.6 % (37.0-47.0); Hemoglobin 9.5 g/dL (12.0-15.0); Immature Granulocyte Absolute 0.07 K/mm3 (0.00-0.031); Immature Granulocyte Percent A 0.8 % (0-0.5); Lymphocytes Absolute Auto 0.79 K/mm3 (0.9-3.2); Lymphocytes Percent Auto 9.2 % (18.3-44.2); Mean Corpuscular HGB Conc 30.1 g/dl (32-36); Mean Corpuscular Hemoglobin 28.8 pg (26-34); Mean Corpuscular Volume 95.8 fl (80-100); Monocytes Percent Auto 11.8 % (2.6-8.5); Neutrophils Absolute Auto 6.6 K/mm3 (1.3-6.7); Neutrophils Percent Auto 77.2 % (45.5-73.1); Platelet Count Result 255 k/mm3 (150-375); Red Cell Distribution Width 15.8 % (11.5-14.5); White Blood Count 8.6 K/mm3 (4.5-10.0)
[2024-09-27 05:45] LABS: Alanine Aminotransferase 10 U/L (6-35); Albumin Level 2.9 g/dL (3.5-5.1); Alkaline Phosphatase 67 U/L (38-126); Anion Gap 10 mmol/L (4-12); Aspartate Amino Transferase 15 U/L (14-36); Bilirubin,Total 0.3 mg/dL (0.2-1.3); Blood Urea Nitrogen 19 mg/dL (7-17); Calcium 8.3 mg/dL (8.4-10.2); Carbon Dioxide 20 mmol/L (22-30); Chloride 108 mmol/L (98-107); Estimated CRCL calculation 46 ml/min; Estimated Glomerular Filt Rate 59; Glucose 101 mg/dL (65-110); Potassium 3.4 mmol/L (3.4-5.0); Sodium 138 mmol/L (137-145)
[2024-09-27 08:03] LABS: Magnesium 1.3 mg/dL (1.6-2.3)
[2024-09-27] MEDS: PANTOPRAZOLE SODIUM IV 40 MG VIAL 20 MG IV PUSH ×2 (08:56→20:04)
[2024-09-27] MEDS: HEPARIN SODIUM 5,000 UNITS/ML VIAL 5000 UNITS SUB-Q ×2 (08:57→20:04)
[2024-09-27] MEDS: MAGNESIUM SULFATE 3GM/D5W100ML 3 GM/100 ML BAG IVPB (09:02)
[2024-09-27] MEDS: SODIUM CHLORIDE 0.9% IV 1,000 ML 100 ML IV CONT ×2 (09:09→17:55)
[2024-09-27] MEDS: POTASSIUM CHLORIDE INJ 40 MEQ in SODIUM CHLORIDE 0.9% IV 500 ML 130 MEQ IVPB (10:36)
--- NOTE | 2024-09-27 11:31 | P.CONGS_ITS ---
Assessment and Plan Assessment and plan (1) Small bowel obstruction: Code(s): K56.609 - Unspecified intestinal obstruction, unspecified as to partial versus complete obstruction Status: Acute Assessment and Plan: Patient readmitted 5 days after recent discharge for large bowel obstruction with fecal impaction, which resolved. CT scan on this admission shows resolution of the fecal impaction with findings of a mid small bowel obstruction. Patient is demented and it is difficult to obtain any history. Her chart review shows a history of ulcerative colitis and she has had a previous colon resection, which raises the possibility of intraabdominal adhesions. Her CT scan also shows a large amount of stool in her right colon, which could be contributing to or causing this issue. Will continue with NG tube decompression and bowel rest now and continue IV fluids. Will attempt to order a Hypaque enema today, which will be therapeutic while also evaluating the colon further. Her potassium is being replaced this morning. Will continue to follow along with serial abdominal exams and imaging. (2) Constipation: Code(s): K59.00 - Constipation, unspecified Status: Acute Assessment and Plan: Chronic issues with constipation. Fecal impaction has resolved but still a large amount of stool in the right colon. See plan above. (3) Chronic indwelling White catheter: Code(s): Z97.8 - Presence of other specified devices Status: Acute (4) Acute UTI: Code(s): N39.0 - Urinary tract infection, site not specified Status: Acute Assessment and Plan: UA abnormal in the setting of a chronic indwelling White catheter. Management per hospitalist. Currently on IV antibiotics. (5) Chronic anemia: Code(s): D64.9 - Anemia, unspecified Status: Chronic Assessment and Plan: Chronic issue, appears stable. Trend labs. (6) Pressure ulcer of buttock: Qualifiers: Pressure injury stage: unstageable Laterality: unspecified laterality Qualified Code(s): L89.300 - Pressure ulcer of unspecified buttock, unstageable Code(s): L89.309 - Pressure ulcer of unspecified buttock, unspecified stage Status: Acute Assessment and Plan: Multiple wounds on bilateral buttocks and left upper thigh that appears stable. She has some areas of maceration likely aggravated by stool incontinence. No signs of infection. Continue local wound care and frequent turning/repositioning to minimize pressure to these wounds. (7) Dementia: Code(s): F03.90 - Unspecified dementia, unspecified severity, without behavioral disturbance, psychotic disturbance, mood disturbance, and anxiety Status: Chronic (8) Presence of IVC filter: Code(s): Z95.828 - Presence of other vascular implants and grafts Status: Chronic Plan I have discussed the patient's case and plan of care with Dr. Cardenas. History of Present Illness Consult details Consult date: 09/27/24 Reason for consult: other (Small bowel obstruction) Requesting physician: Kayden Lee MD Narrative: This is a 64-year-old woman with history of dementia, hypertension, hyperlipidemia, coronary artery disease, ulcerative colitis, neurogenic bladder with indwelling White catheter, and several other comorbidities who we have been asked to see in surgical consultation for small-bowel obstruction. She was recently admitted for a bowel obstruction secondary to a fecal impaction, which resolved with enemas and bowel stimulation and she was eventually discharged back to the nursing care facility on 09/21/2024. She is a poor historian and no family at the bedside, therefore history is obtained by review of the EMR. She was apparently brought back to the ED yesterday for evaluation of abdominal pain, nausea, and vomiting. She is unable to give any additional history. CT scan of the abdomen and pelvis showed a mid small-bowel obstruction, mild left hydronephrosis and urothelial enhancement with cystitis, proctitis following resolution of the fecal impaction seen on the previous CT scan and chronic intra and extra hepatic bile duct dilation, and small bilateral pleural effusions. She had NG tube placement and was admitted to the hospitalist service. She is now seen on the medical floor. She is agitated and answer some questions, but otherwise refuses to answer others. She denies any abdominal pain. She is not able to tell me her last bowel movement. Review of Systems 2 Review of Systems: All systems reviewed & are unremarkable except as noted in HPI and below PMFSH Past Medical History Medical History Presence of IVC filter Hypertension Neurogenic bladder Deep venous thrombosis Coronary artery disease Poorly documented and patient denies. Anxiety Chronic anemia Arthritis Gastroesophageal reflux disease Ulcerative colitis Hyperlipidemia Dementia Chronic indwelling White catheter Surgical History Surgical History History of colon resection Family History Family History Other Family history unknown Social History Social History Social History: Surrogate decision maker: Amanda Parker, sibling. Code status: Full code. Smoking status: Unknown if ever smoked Alcohol intake: never Substance use: never Do You Feel Safe in your Home?: Yes Lack of Transportation: No Lack of Food: Never True Current Housing: I Have Housing Concerned About Future Housing: No Difficulty Paying Gas/Electric Bills: No Difficulty Paying for Meds: No Currently Unemployed: No Education: High School Diploma/GED Difficulty w/ Childcare or Family Care: No Additional living arrangements comments: The patient is a resident at [facility]. Additional occupation/education comments: Disabled. Spiritual care concerns: No Meds Home Medications and Allergies Home Medications ?Medication ?Instructions ?Recorded ?Confirmed ?Type hydroxyzine pamoate 25 mg capsule 25 mg PO BID 03/07/21 09/27/24 History lactulose 10 gram/15 mL oral 10 g PO TID PRN Constipation 03/07/21 09/27/24 History solution mirtazapine 15 mg tablet 15 mg PO HS 03/07/21 09/27/24 History montelukast 10 mg tablet 10 mg PO DAILY 03/07/21 09/27/24 History pantoprazole 40 mg tablet,delayed 40 mg PO DAILY 03/07/21 09/27/24 History release sertraline 50 mg tablet 50 mg PO DAILY 03/07/21 09/27/24 History simvastatin 20 mg tablet 20 mg PO HS 03/07/21 09/27/24 History sucralfate 1 gram tablet 1 g PO BID 03/07/21 09/27/24 History Lactobacillus acidophilus 1 cap PO DAILY 03/08/21 09/27/24 History (Acidophilus capsule) acetaminophen 500 mg capsule 1,000 mg PO Q6H PRN Pain 03/08/21 09/27/24 History ascorbate calcium (vitamin C) 500 500 mg PO BID 03/08/21 09/27/24 History mg tablet ergocalciferol (vitamin D2) 25,000 50,000 unit PO WEEKLY 03/08/21 09/27/24 History unit capsule ferrous sulfate 325 mg (65 mg 325 mg PO BID 03/08/21 09/27/24 History iron) tablet (Iron (ferrous sulfate)) multivitamin with minerals (Daily 1 tablet PO DAILY 03/08/21 09/27/24 History Multivitamin-Minerals tablet) potassium chloride 10 mEq 10 meq PO BID 09/16/24 09/27/24 History tablet,extended release amoxicillin 875 mg-potassium 1 tablet PO Q12H #6 tabs 09/21/24 09/27/24 Rx clavulanate 125 mg tablet docusate sodium 100 mg capsule 100 mg PO BID constipation #60 09/21/24 09/27/24 Rx caps polyethylene glycol 3350 17 gram 17 g PO QAM #30 ea 09/21/24 09/27/24 Rx oral powder packet (Miralax) ergocalciferol (vitamin D2) 50 mcg 100 mcg PO DAILY 09/27/24 09/27/24 History (2,000 unit) tablet Allergies Allergy/AdvReac Type Severity Reaction Status Date / Time lorazepam Allergy Unknown Verified 03/07/21 14:22 Vital Signs Vital Signs - 24 hr 09/26/24 18:50 09/26/24 23:09 09/26/24 23:50 Temperature 97.9 F 97.6 F Pulse Rate 140 H 116 H 118 H Respiratory Rate 24 H 14 18 Blood Pressure 106/67 136/76 132/52 L Pulse Oximetry 95 98 97 Oxygen Delivery Room Air 09/27/24 00:45 09/27/24 04:00 09/27/24 04:49 Temperature 97.3 F L Pulse Rate 108 H 113 H Respiratory Rate 20 Blood Pressure 134/67 Pulse Oximetry 99 Oxygen Delivery Room Air 09/27/24 08:56 09/27/24 08:56 09/27/24 10:00 Temperature 98.6 F Pulse Rate 110 H 107 H Respiratory Rate 12 Blood Pressure 116/60 Pulse Oximetry 95 Oxygen Delivery Room Air Exam 2 Const: General: no acute distress Nutritional Appearance: average body habitus Orientation/consciousness: confusion HENMT: Head: normocephalic and atraumatic Ears: hearing grossly normal bilaterally Mouth: Yes moist mucous membranes Eyes: General: appearance normal, both eyes and all related structures P upils: Equal, round and reactive pupils present Neck: Neck: normal visual inspection and full ROM Resp: Effort & Inspection: no respiratory distress Auscultation: clear to auscultation bilaterally Cardio: Rate: regular rate Rhythm: regular rhythm Peripheral pulses: P eripheral pulses 2+ throughout GI: Inspection: distended and scar (large midline scar) GI Palp: Yes Soft to palpation, Yes Tenderness to palpation present (GI) (RUQ, RLQ), No Guarding due to palpation present (GI) and No Rebound tenderness present Percussion: Y es normal to percussion Auscultation: Hypoactive bowel sounds present Skin: General skin exam: normal color Other: Multiple open wounds to bilateral buttocks and left posterior thigh that are open but appear superficial with no necrotic tissue or purulent drainage. Surrounding skin is macerated. Neuro: General: moves all extremities and no focal motor deficits Speech: n ormal speech Motor exam (neuro): 5/5 motor strength present throughout Extrem: General: no edema and other (lower extremities contracted) Psych: Attitude: Refuses to answer (attititude/behavior) (uncooperative) I nsight: Limited insight present (Psych) Judgement: Limited judgement present (Psych) Results Labs 09/27/24 04:36 09/27/24 04:36 Labs: Abnormal lab results 09/26/24 09/27/24 09/27/24 Range/Units 18:59 04:31 04:36 WBC 16.0 H (4.5-10.0) K/mm3 RBC 4.09 L 3.30 L (4.2-5.4) M/mm3 Hgb 11.8 L 9.5 L (12.0-15.0) g/dL Hct 31.6 L (37.0-47.0) % MCHC 31.0 L 30.1 L (32-36) g/dl RDW 15.6 H 15.8 H (11.5-14.5) % Immature Gran % (Auto) 1.1 H 0.8 H (0-0.5) % Neut % (Auto) 88.3 H 77.2 H (45.5-73.1) % Lymph % (Auto) 3.9 L 9.2 L (18.3-44.2) % [place] % (Auto) 11.8 H (2.6-8.5) % Lymph # (Auto) 0.63 L 0.79 L (0.9-3.2) K/mm3 [place] # (Auto) 0.9 H 1.0 H (0.1-0.6) K/mm3 Abs Immat Gran (auto) 0.17 H 0.07 H (0.00-0.031) K/mm3 Absolute Neuts (auto) 14.1 H (1.3-6.7) K/mm3 Chloride 108 H (98-107) mmol/L Carbon Dioxide 20 L 20 L (22-30) mmol/L Anion Gap 13 H (4-12) mmol/L BUN 19 H 19 H (7-17) mg/dL Estimated GFR 55 L (59 - ) Glucose 134 H (65-110) mg/dL Calcium 8.3 L (8.4-10.2) mg/dL Magnesium 1.3 L (1.6-2.3) mg/dL Total Protein 6.0 L 5.0 L (6.3-8.2) g/dL Albumin 2.9 L (3.5-5.1) g/dL Urine Appearance Turbid H (Clear) Urine Protein 2+ H (Negative) mg/dL Urine Ketones Trace H (Negative) mg/dL Ur Blood (Man) 2+ H (Negative) Leukocyte Esterase Rfl 3+ H (Negative) CURLY/UL Urine RBC 11-20 H (0-2) /hpf Urine WBC >100 H (0-3) /hpf Urine Bacteria 3+ H /hpf Diabetes panel 09/26/24 09/27/24 Range/Units 18:59 04:36 Sodium 137 138 (137-145) mmol/L Potassium 3.5 3.4 (3.4-5.0) mmol/L Chloride 104 108 H (98-107) mmol/L Carbon Dioxide 20 L 20 L (22-30) mmol/L BUN 19 H 19 H (7-17) mg/dL Creatinine 1.00 0.95 (0.7-1.0) mg/dL Glucose 134 H 101 (65-110) mg/dL Calcium 9.6 8.3 L (8.4-10.2) mg/dL AST 23 15 (14-36) U/L ALT 12 10 (6-35) U/L Alkaline Phosphatase 83 67 (38-126) U/L Total Protein 6.0 L 5.0 L (6.3-8.2) g/dL Albumin 3.7 2.9 L (3.5-5.1) g/dL Calcium panel 09/26/24 09/27/24 Range/Units 18:59 04:36 Calcium 9.6 8.3 L (8.4-10.2) mg/dL Albumin 3.7 2.9 L (3.5-5.1) g/dL Pituitary panel 09/26/24 09/27/24 Range/Units 18:59 04:36 Sodium 137 138 (137-145) mmol/L Potassium 3.5 3.4 (3.4-5.0) mmol/L Chloride 104 108 H (98-107) mmol/L Carbon Dioxide 20 L 20 L (22-30) mmol/L BUN 19 H 19 H (7-17) mg/dL Creatinine 1.00 0.95 (0.7-1.0) mg/dL Glucose 134 H 101 (65-110) mg/dL Calcium 9.6 8.3 L (8.4-10.2) mg/dL Adrenal panel 09/26/24 09/27/24 Range/Units 18:59 04:36 Sodium 137 138 (137-145) mmol/L Potassium 3.5 3.4 (3.4-5.0) mmol/L Chloride 104 108 H (98-107) mmol/L Carbon Dioxide 20 L 20 L (22-30) mmol/L BUN 19 H 19 H (7-17) mg/dL Creatinine 1.00 0.95 (0.7-1.0) mg/dL Glucose 134 H 101 (65-110) mg/dL Calcium 9.6 8.3 L (8.4-10.2) mg/dL Total Bilirubin 0.5 0.3 (0.2-1.3) mg/dL AST 23 15 (14-36) U/L ALT 12 10 (6-35) U/L Alkaline Phosphatase 83 67 (38-126) U/L Total Protein 6.0 L 5.0 L (6.3-8.2) g/dL Albumin 3.7 2.9 L (3.5-5.1) g/dL All other labs normal. Imaging Additional studies: ITS Impressions Abdomen/Pelvis CT 09/26/24 20:50 IMPRESSION: Small bilateral pleural effusions. Chronic intra and extra hepatic bile duct dilation. Mid small bowel obstruction, transition point may represent an area of adhesion or short segment infectious, inflammatory, or ischemic colitis. Mild left hydronephrosis and urothelial enhancement may represent ascending infection/pyelitis. Cystitis. Proctitis. Abdomen X-Ray 09/27/24 06:06 Impression: NG tube in satisfactory position. Possible small bowel obstruction.
--- NOTE | 2024-09-27 11:44 | P.PNIM_ITS ---
Progress Note: A&P Assessment and Plan (1) Small bowel obstruction: Code(s): K56.609 - Unspecified intestinal obstruction, unspecified as to partial versus complete obstruction Status: Acute Assessment and Plan: * NPO * NG tube to suction. * NS@ 100 ml/hr. * CT scan also shows a large amount of stool in her right colon, which could be contributing to or causing this issue. * Surgery consult, appreciate recommendations. * Hypaque enema ordered. * Anti-emetics; Optimize analgesia * Ceftriaxone 1 gram IVPB q 24. * Blood cultures no growth to date. (2) Constipation: Code(s): K59.00 - Constipation, unspecified Status: Acute Assessment and Plan: * Will continue with NG tube decompression and bowel rest now and continue IV fluids. * Hypaque enema ordered. (3) Hypertension: Qualifiers: Hypertension type: primary hypertension Qualified Code(s): I10 - Essential (primary) hypertension Code(s): I10 - Essential (primary) hypertension Status: Chronic Assessment and Plan: * Blood pressure 138/66. (4) Hypokalemia: Code(s): E87.6 - Hypokalemia Status: Acute Assessment and Plan: * Potassium 3.4. * Potassium Chloride 40 meq IVPB x1 given. * Trend level. (5) Hypomagnesemia: Code(s): E83.42 - Hypomagnesemia Status: Acute Assessment and Plan: * Magnesium 1.3. * Magnesium Sulfate 3 gram IVPB x1. * Trend level. Plan Acute and principal conditions 1. SBO 2. Cystitis 3. Proctitis 4. Mild left hydronephrosis; Pyelitis 5. Small bilateral effusions 6. CAUTI 7. HAGMA Rx: * NPO; IVFs; * Anti-emetics; Optimize analgesia * General surgery consulted * Ceftriaxone Chronic and stable conditions * Pressure wounds, Buttocks. unspecified stage * Dementia. * DVT * GERD * Dyslipidemia. * Hypertension. 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 Full * Nutrition. NPO * VTE prophylaxis. SCDs; SONIA Subjective Date/time seen: 09/27/24 11:44 Interval history: Patient denies pain, shortness of breath, nausea, or vomiting. Review of Systems Review of Systems: All systems reviewed & are unremarkable except as noted in HPI and below Exam Const: General: no acute distress Resp: Effort & Inspection: normal respiratory effort Auscultation: clear to auscultation bilaterally Cardio: Rate: regular rate Rhythm: regular rhythm Other: Telemetry- SR 99. GI: GI Palp: Yes Soft to palpation and Yes Tenderness to palpation present (GI) (RUQ, RLQ) Other: hypoactive bowel sounds. Skin: Other: Multiple open wounds to bilateral buttocks and left posterior thigh. Maceration noted. No necrotic area and minimal exudate. See wound care note and treatment. Neuro: Speech: normal speech Extrem: General: no pedal edema Psych: Mental Status: mental status grossly normal Affect: normal affect Objective Data Vital Signs Vital Signs: Vital Signs - 24 hr 09/26/24 18:50 09/26/24 23:09 09/26/24 23:50 Temperature 97.9 F 97.6 F Pulse Rate 140 H 116 H 118 H Respiratory Rate 24 H 14 18 Blood Pressure 106/67 136/76 132/52 L Pulse Oximetry 95 98 97 Oxygen Delivery Room Air 09/27/24 00:45 09/27/24 04:00 09/27/24 04:49 Temperature 97.3 F L Pulse Rate 108 H 113 H Respiratory Rate 20 Blood Pressure 134/67 Pulse Oximetry 99 Oxygen Delivery Room Air 09/27/24 08:56 09/27/24 08:56 09/27/24 10:00 Temperature 98.6 F Pulse Rate 110 H 107 H Respiratory Rate 12 Blood Pressure 116/60 Pulse Oximetry 95 Oxygen Delivery Room Air Intake/Output Intake/Output: Intake & Output 09/24/24 09/25/24 09/26/24 09/27/24 23:59 23:59 23:59 23:59 Intake Total 1050 970.4 Output Total 400 Balance 1050 570.4 Meds/Results Medications: Active Medications Generic Name Dose Route Start Last Admin Trade Name Freq PRN Reason Stop Dose Admin Acetaminophen 650 mg 09/27/24 05:03 Acetaminophen 325 Mg Tablet FEED TUBE Q4H PRN Mild Pain (1-3) or Fever Heparin Sodium (Porcine) 5,000 units 09/27/24 09:00 09/27/24 08:57 Heparin Sodium 5,000 Units/Ml Vial SUB-Q 5,000 units Q12HR SONIA Administration Ceftriaxone Sodium 1 gm in 50 mls @ 100 mls/hr 09/27/24 21:00 Rocephin 1 Gm/Ns 50 Ml IVPB Q24H SONIA Sodium Chloride 1,000 mls @ 100 mls/hr 09/26/24 22:25 09/27/24 09:09 Normal Saline Iv IV CONT 100 mls/hr .Q10H SONIA Administration Potassium Chloride 40 meq/ 520 mls @ 130 mls/hr 09/27/24 08:00 09/27/24 10:36 Sodium Chloride IVPB 09/27/24 11:59 130 mls/hr ONCE ONE Administration Melatonin 5 mg 09/27/24 05:03 Melatonin 5 Mg Tablet PO HS PRN Insomnia Morphine Sulfate 2 mg 09/26/24 22:23 Morphine Sulfate (*Crx) 2 Mg/Ml Inj IV PUSH Q2H PRN Pain Rated 7-10 Ondansetron HCl 4 mg 09/26/24 22:23 Ondansetron Inj 4 Mg/2 Ml Vial IV PUSH Q4H PRN Nausea Pantoprazole Sodium 20 mg 09/27/24 09:00 09/27/24 08:56 Pantoprazole Sodium Iv 40 Mg Vial IV PUSH 20 mg Q12HR SONIA Administration Radiology Results: ITS Impressions Abdomen/Pelvis CT 09/26/24 20:50 IMPRESSION: Small bilateral pleural effusions. Chronic intra and extra hepatic bile duct dilation. Mid small bowel obstruction, transition point may represent an area of adhesion or short segment infectious, inflammatory, or ischemic colitis. Mild left hydronephrosis and urothelial enhancement may represent ascending infection/pyelitis. Cystitis. Proctitis. Abdomen X-Ray 09/27/24 06:06 Impression: NG tube in satisfactory position. Possible small bowel obstruction. Labs Labs: Laboratory Results - last 24 hr 09/26/24 09/26/24 09/27/24 18:59 20:53 04:31 WBC 16.0 H RBC 4.09 L Hgb 11.8 L Hct 38.1 MCV 93.2 MCH 28.9 MCHC 31.0 L RDW 15.6 H Plt Count 291 D MPV 9.7 Immature Gran % (Auto) 1.1 H Neut % (Auto) 88.3 H Lymph % (Auto) 3.9 L [place] % (Auto) 5.9 Eos % (Auto) 0.2 Baso % (Auto) 0.6 Lymph # (Auto) 0.63 L [place] # (Auto) 0.9 H Eos # (Auto) 0.0 Baso # (Auto) 0.1 Abs Immat Gran (auto) 0.17 H Absolute Neuts (auto) 14.1 H Absolute Nucleated RBC 0.000 Nucleated RBC % 0.0 Sodium 137 Potassium 3.5 Chloride 104 Carbon Dioxide 20 L Anion Gap 13 H BUN 19 H Creatinine 1.00 Estim Creat Clear Calc Not Reportable Estimated GFR 55 L Glucose 134 H Lactic Acid 1.1 Calcium 9.6 Magnesium 1.3 L Total Bilirubin 0.5 AST 23 ALT 12 Alkaline Phosphatase 83 Total Protein 6.0 L Albumin 3.7 Lipase 147 Urine Color Yellow Urine Appearance Turbid H Urine pH 6.5 Ur Specific [place] 1.015 Urine Protein 2+ H Urine Glucose (UA) Negative Urine Ketones Trace H Ur Blood (Man) 2+ H Urine Nitrate Negative Urine Bilirubin Negative Urine Urobilinogen 0.2 Add Ur Microanalysis Reviewed Leukocyte Esterase Rfl 3+ H Urine RBC 11-20 H Urine WBC >100 H Ur Squamous Epith Cells None seen Urine Bacteria 3+ H Urine Casts 11-20 09/27/24 04:36 WBC 8.6 RBC 3.30 L Hgb 9.5 L Hct 31.6 L MCV 95.8 MCH 28.8 MCHC 30.1 L RDW 15.8 H Plt Count 255 MPV 10.0 Immature Gran % (Auto) 0.8 H Neut % (Auto) 77.2 H Lymph % (Auto) 9.2 L [place] % (Auto) 11.8 H Eos % (Auto) 0.2 Baso % (Auto) 0.8 Lymph # (Auto) 0.79 L [place] # (Auto) 1.0 H Eos # (Auto) 0.0 Baso # (Auto) 0.1 Abs Immat Gran (auto) 0.07 H Absolute Neuts (auto) 6.6 Absolute Nucleated RBC 0.000 Nucleated RBC % 0.0 Sodium 138 Potassium 3.4 Chloride 108 H Carbon Dioxide 20 L Anion Gap 10 BUN 19 H Creatinine 0.95 Estim Creat Clear Calc 46 Estimated GFR 59 Glucose 101 Lactic Acid Calcium 8.3 L Magnesium Total Bilirubin 0.3 AST 15 ALT 10 Alkaline Phosphatase 67 Total Protein 5.0 L Albumin 2.9 L Lipase Urine Color Urine Appearance Urine pH Ur Specific [place] Urine Protein Urine Glucose (UA) Urine Ketones Ur Blood (Man) Urine Nitrate Urine Bilirubin Urine Urobilinogen Add Ur Microanalysis Leukocyte Esterase Rfl Urine RBC Urine WBC Ur Squamous Epith Cells Urine Bacteria Urine Casts Quality VTE Prophylaxis VTE prophylaxis: mechanical ordered and pharmacologic ordered
[2024-09-28] VITALS (7 sets, daily range): BP systolic 132–148; BP diastolic 57–67; PULSE 91–102; RESP 16–20; TEMP 36.2–36.9; O2SAT 96–99
[2024-09-28] MEDS: SODIUM CHLORIDE 0.9% IV 1,000 ML 100 ML IV CONT ×2 (04:37→23:28)
[2024-09-28 05:20] LABS: Basophils Absolute Auto 0.1 K/mm3 (0.0-0.1); Basophils Percent Auto 1.4 % (0.2-1.2); Eosinophils Absolute Auto 0.2 K/mm3 (0-0.3); Eosinophils Percent Auto 3.4 % (0-4.4); Hematocrit 26.4 % (37.0-47.0); Hemoglobin 7.6 g/dL (12.0-15.0); Immature Granulocyte Absolute 0.03 K/mm3 (0.00-0.031); Immature Granulocyte Percent A 0.7 % (0-0.5); Lymphocytes Absolute Auto 0.53 K/mm3 (0.9-3.2); Lymphocytes Percent Auto 12.1 % (18.3-44.2); Mean Corpuscular HGB Conc 28.8 g/dl (32-36); Mean Corpuscular Hemoglobin 28.9 pg (26-34); Mean Corpuscular Volume 100.4 fl (80-100); Mean Platelet Volume 9.7 fl (7.4-10.4); Monocytes Absolute Auto 0.6 K/mm3 (0.1-0.6); Monocytes Percent Auto 13.2 % (2.6-8.5); Neutrophils Percent Auto 69.2 % (45.5-73.1); Platelet Count Result 180 k/mm3 (150-375); Red Blood Count 2.63 M/mm3 (4.2-5.4); Red Cell Distribution Width 15.7 % (11.5-14.5); White Blood Count 4.4 K/mm3 (4.5-10.0)
[2024-09-28 05:39] LABS: Alanine Aminotransferase 8 U/L (6-35); Albumin Level 2.6 g/dL (3.5-5.1); Alkaline Phosphatase 63 U/L (38-126); Anion Gap 8 mmol/L (4-12); Aspartate Amino Transferase 18 U/L (14-36); Bilirubin,Total 0.3 mg/dL (0.2-1.3); Blood Urea Nitrogen 18 mg/dL (7-17); Carbon Dioxide 17 mmol/L (22-30); Chloride 116 mmol/L (98-107); Estimated CRCL calculation 50 ml/min; Estimated Glomerular Filt Rate > 60; Glucose 70 mg/dL (65-110); Magnesium 2.2 mg/dL (1.6-2.3); Potassium 3.4 mmol/L (3.4-5.0); Sodium 141 mmol/L (137-145)
[2024-09-28 05:48] LABS: Anisocytosis 1+; Burr Cells 1+; Ovalocytes 1+; Platelet Estimate Adequate (Adequate); Schistocytes None Seen
[2024-09-28] MEDS: PANTOPRAZOLE SODIUM IV 40 MG VIAL 20 MG IV PUSH ×2 (08:18→21:27)
[2024-09-28] MEDS: HEPARIN SODIUM 5,000 UNITS/ML VIAL 5000 UNITS SUB-Q ×2 (08:21→21:27)
[2024-09-28] MEDS: POTASSIUM CHLORIDE INJ 40 MEQ in SODIUM CHLORIDE 0.9% IV 500 ML 130 MEQ IVPB (08:21)
--- NOTE | 2024-09-28 10:25 | PM.PNGS ---
Progress Note: A&P Assessment and Plan (1) Small bowel obstruction: Code(s): K56.609 - Unspecified intestinal obstruction, unspecified as to partial versus complete obstruction Status: Acute Assessment and Plan: Patient refused the Hypaque enema yesterday and pulled out her NG tube early this morning. KUB still shows dilated small bowel throughout the abdomen with a large amount of stool in the right colon. She still appears distended and is tender on exam. We will have nursing attempt to replace the NG tube for decompression. Continue bowel rest and IV fluids. Potassium and magnesium replaced this morning. (2) Constipation: Code(s): K59.00 - Constipation, unspecified Status: Acute Assessment and Plan: Still has a large amount of stool in the right colon. She refused the Hypaque enema. If NG tube is replaced, we could consider giving water-soluble contrast through the NG tube for a small-bowel series in the next day or so. (3) Chronic indwelling White catheter: Code(s): Z97.8 - Presence of other specified devices Status: Acute (4) Chronic anemia: Code(s): D64.9 - Anemia, unspecified Status: Chronic Assessment and Plan: Stable (5) Pressure ulcer of buttock: Qualifiers: Pressure injury stage: unstageable Laterality: unspecified laterality Qualified Code(s): L89.300 - Pressure ulcer of unspecified buttock, unstageable Code(s): L89.309 - Pressure ulcer of unspecified buttock, unspecified stage Status: Acute Assessment and Plan: Continue local wound care and frequent turning (6) Dementia: Code(s): F03.90 - Unspecified dementia, unspecified severity, without behavioral disturbance, psychotic disturbance, mood disturbance, and anxiety Status: Chronic (7) Presence of IVC filter: Code(s): Z95.828 - Presence of other vascular implants and grafts Status: Chronic Plan I have discussed the patient's case and plan of care with Dr. Cardenas. Subjective Subjective Date/Time Seen: 09/28/24 10:25 Interval history: Patient with history of dementia. She is alert and calm today, but refusing to answer any questions. Any questions that I would ask, she would look away from me and sit silently. Per nursing, she pulled out her NG tube this morning. No bowel movements since admission. Exam GI: Inspection: distended and scar (large midline scar) GI Palp: Yes Soft to palpation, Yes Tenderness to palpation present (GI) (Grimacing with any palpation of the abdomen), No Guarding due to palpation present (GI) and No Rebound tenderness present Auscultation: Hypoactive bowel sounds present Objective Data Vital Signs Vital Signs: Vital Signs - 24 hr 09/27/24 12:00 09/27/24 12:00 09/27/24 16:00 Temperature Pulse Rate 95 104 H 109 H Respiratory Rate 14 Blood Pressure 138/66 Pulse Oximetry 96 Oxygen Delivery 09/27/24 18:00 09/27/24 20:00 09/27/24 20:00 Temperature Pulse Rate 96 93 Respiratory Rate 12 Blood Pressure 132/64 Pulse Oximetry 98 Oxygen Delivery Room Air 09/27/24 20:00 09/28/24 00:00 09/28/24 03:46 Temperature 98.6 F 98.4 F 97.1 F L Pulse Rate 99 95 91 Respiratory Rate 20 18 18 Blood Pressure 120/98 H 133/67 132/60 Pulse Oximetry 98 99 96 Oxygen Delivery 09/28/24 07:43 Temperature 97.6 F Pulse Rate 97 Respiratory Rate 18 Blood Pressure 134/57 L Pulse Oximetry 98 Oxygen Delivery Intake/Output Intake/Output: Intake & Output 09/25/24 09/26/24 09/27/24 09/28/24 23:59 23:59 23:59 23:59 Intake Total 1050 2467.1 1000 Output Total 1200 1500 Balance 1050 1267.1 -500 Meds/Results Medications: Active Medications Generic Name Dose Route Start Last Admin Trade Name Freq PRN Reason Stop Dose Admin Acetaminophen 650 mg 09/27/24 05:03 Acetaminophen 325 Mg Tablet FEED TUBE Q4H PRN Mild Pain (1-3) or Fever Heparin Sodium (Porcine) 5,000 units 09/27/24 09:00 09/28/24 08:21 Heparin Sodium 5,000 Units/Ml Vial SUB-Q 5,000 units Q12HR SONIA Administration Ceftriaxone Sodium 1 gm in 50 mls @ 100 mls/hr 09/27/24 21:00 09/27/24 20:04 Rocephin 1 Gm/Ns 50 Ml IVPB 100 mls/hr Q24H SONIA Administration Sodium Chloride 1,000 mls @ 100 mls/hr 09/26/24 22:25 09/28/24 04:37 Normal Saline Iv IV CONT 100 mls/hr .Q10H SONIA Administration Potassium Chloride 40 meq/ 520 mls @ 130 mls/hr 09/28/24 07:40 09/28/24 08:21 Sodium Chloride IVPB 09/28/24 11:39 130 mls/hr ONCE ONE Administration Melatonin 5 mg 09/27/24 05:03 Melatonin 5 Mg Tablet PO HS PRN Insomnia Morphine Sulfate 2 mg 09/26/24 22:23 Morphine Sulfate (*Crx) 2 Mg/Ml Inj IV PUSH Q2H PRN Pain Rated 7-10 Ondansetron HCl 4 mg 09/26/24 22:23 Ondansetron Inj 4 Mg/2 Ml Vial IV PUSH Q4H PRN Nausea Pantoprazole Sodium 20 mg 09/27/24 09:00 09/28/24 08:18 Pantoprazole Sodium Iv 40 Mg Vial IV PUSH 20 mg Q12HR SONIA Administration Radiology Results: ITS Impressions Abdomen/Pelvis CT 09/26/24 20:50 IMPRESSION: Small bilateral pleural effusions. Chronic intra and extra hepatic bile duct dilation. Mid small bowel obstruction, transition point may represent an area of adhesion or short segment infectious, inflammatory, or ischemic colitis. Mild left hydronephrosis and urothelial enhancement may represent ascending infection/pyelitis. Cystitis. Proctitis. Abdomen X-Ray 09/28/24 09:23 IMPRESSION: Nasogastric tube in good position and ready for immediate use. Labs Labs: Laboratory Results - last 24 hr 09/28/24 04:50 WBC 4.4 L RBC 2.63 L Hgb 7.6 L Hct 26.4 L MCV 100.4 H MCH 28.9 MCHC 28.8 L RDW 15.7 H Plt Count 180 MPV 9.7 Immature Gran % (Auto) 0.7 H Neut % (Auto) 69.2 Lymph % (Auto) 12.1 L [place] % (Auto) 13.2 H Eos % (Auto) 3.4 Baso % (Auto) 1.4 H Lymph # (Auto) 0.53 L [place] # (Auto) 0.6 Eos # (Auto) 0.2 Baso # (Auto) 0.1 Abs Immat Gran (auto) 0.03 Absolute Neuts (auto) 3.0 Absolute Nucleated RBC 0.000 Band Neutrophils % Not Reportable Nucleated RBC % 0.0 Platelet Estimate Adequate Anisocytosis 1+ Ovalocytes 1+ [place] Cells 1+ Schistocytes None seen Sodium 141 Potassium 3.4 Chloride 116 H Carbon Dioxide 17 L Anion Gap 8 BUN 18 H Creatinine 0.87 Estim Creat Clear Calc 50 Estimated GFR > 60 Glucose 70 Calcium 8.0 L Magnesium 2.2 Total Bilirubin 0.3 AST 18 ALT 8 Alkaline Phosphatase 63 Total Protein 5.0 L Albumin 2.6 L
--- NOTE | 2024-09-28 10:42 | P.PNIM_ITS ---
Subjective Date/time seen: 09/28/24 10:42 Review of Systems Review of Systems: All systems reviewed & are unremarkable except as noted in HPI and below Objective Data Vital Signs Vital Signs: Vital Signs - 24 hr 09/27/24 12:00 09/27/24 12:00 09/27/24 16:00 Temperature Pulse Rate 95 104 H 109 H Respiratory Rate 14 Blood Pressure 138/66 Pulse Oximetry 96 Oxygen Delivery 09/27/24 18:00 09/27/24 20:00 09/27/24 20:00 Temperature Pulse Rate 96 93 Respiratory Rate 12 Blood Pressure 132/64 Pulse Oximetry 98 Oxygen Delivery Room Air 09/27/24 20:00 09/28/24 00:00 09/28/24 03:46 Temperature 98.6 F 98.4 F 97.1 F L Pulse Rate 99 95 91 Respiratory Rate 20 18 18 Blood Pressure 120/98 H 133/67 132/60 Pulse Oximetry 98 99 96 Oxygen Delivery 09/28/24 07:43 09/28/24 10:17 Temperature 97.6 F Pulse Rate 97 97 Respiratory Rate 18 18 Blood Pressure 134/57 L Pulse Oximetry 98 98 Oxygen Delivery Room Air Intake/Output Intake/Output: Intake & Output 09/25/24 09/26/24 09/27/24 09/28/24 23:59 23:59 23:59 23:59 Intake Total 1050 2467.1 1000 Output Total 1200 1500 Balance 1050 1267.1 -500 Meds/Results Medications: Active Medications Generic Name Dose Route Start Last Admin Trade Name Freq PRN Reason Stop Dose Admin Acetaminophen 650 mg 09/27/24 05:03 Acetaminophen 325 Mg Tablet FEED TUBE Q4H PRN Mild Pain (1-3) or Fever Heparin Sodium (Porcine) 5,000 units 09/27/24 09:00 09/28/24 08:21 Heparin Sodium 5,000 Units/Ml Vial SUB-Q 5,000 units Q12HR SONIA Administration Ceftriaxone Sodium 1 gm in 50 mls @ 100 mls/hr 09/27/24 21:00 09/27/24 20:04 Rocephin 1 Gm/Ns 50 Ml IVPB 100 mls/hr Q24H SONIA Administration Sodium Chloride 1,000 mls @ 100 mls/hr 09/26/24 22:25 09/28/24 04:37 Normal Saline Iv IV CONT 100 mls/hr .Q10H SONIA Administration Potassium Chloride 40 meq/ 520 mls @ 130 mls/hr 09/28/24 07:40 09/28/24 08:21 Sodium Chloride IVPB 09/28/24 11:39 130 mls/hr ONCE ONE Administration Melatonin 5 mg 09/27/24 05:03 Melatonin 5 Mg Tablet PO HS PRN Insomnia Morphine Sulfate 2 mg 09/26/24 22:23 Morphine Sulfate (*Crx) 2 Mg/Ml Inj IV PUSH Q2H PRN Pain Rated 7-10 Ondansetron HCl 4 mg 09/26/24 22:23 Ondansetron Inj 4 Mg/2 Ml Vial IV PUSH Q4H PRN Nausea Pantoprazole Sodium 20 mg 09/27/24 09:00 09/28/24 08:18 Pantoprazole Sodium Iv 40 Mg Vial IV PUSH 20 mg Q12HR SONIA Administration Radiology Results: ITS Impressions Abdomen/Pelvis CT 09/26/24 20:50 IMPRESSION: Small bilateral pleural effusions. Chronic intra and extra hepatic bile duct dilation. Mid small bowel obstruction, transition point may represent an area of adhesion or short segment infectious, inflammatory, or ischemic colitis. Mild left hydronephrosis and urothelial enhancement may represent ascending infection/pyelitis. Cystitis. Proctitis. Abdomen X-Ray 09/28/24 09:23 IMPRESSION: Nasogastric tube in good position and ready for immediate use. Labs Labs: Laboratory Results - last 24 hr 09/28/24 04:50 WBC 4.4 L RBC 2.63 L Hgb 7.6 L Hct 26.4 L MCV 100.4 H MCH 28.9 MCHC 28.8 L RDW 15.7 H Plt Count 180 MPV 9.7 Immature Gran % (Auto) 0.7 H Neut % (Auto) 69.2 Lymph % (Auto) 12.1 L [place] % (Auto) 13.2 H Eos % (Auto) 3.4 Baso % (Auto) 1.4 H Lymph # (Auto) 0.53 L [place] # (Auto) 0.6 Eos # (Auto) 0.2 Baso # (Auto) 0.1 Abs Immat Gran (auto) 0.03 Absolute Neuts (auto) 3.0 Absolute Nucleated RBC 0.000 Band Neutrophils % Not Reportable Nucleated RBC % 0.0 Platelet Estimate Adequate Anisocytosis 1+ Ovalocytes 1+ [place] Cells 1+ Schistocytes None seen Sodium 141 Potassium 3.4 Chloride 116 H Carbon Dioxide 17 L Anion Gap 8 BUN 18 H Creatinine 0.87 Estim Creat Clear Calc 50 Estimated GFR > 60 Glucose 70 Calcium 8.0 L Magnesium 2.2 Total Bilirubin 0.3 AST 18 ALT 8 Alkaline Phosphatase 63 Total Protein 5.0 L Albumin 2.6 L
[2024-09-28] MEDS: CEFEPIME 2 GM/NS 50 ML 2 GM/50 ML BAG IVPB ×2 (14:27→23:27)
--- NOTE | 2024-09-28 15:17 | P.PNIM_ITS ---
Progress Note: A&P Assessment and Plan (1) Small bowel obstruction: Code(s): K56.609 - Unspecified intestinal obstruction, unspecified as to partial versus complete obstruction Status: Acute Assessment and Plan: * NPO * NG tube to suction. * NS@ 100 ml/hr. * CT scan also shows a large amount of stool in her right colon, which could be contributing to or causing this issue. * Surgery consult, appreciate recommendations. * Hypaque enema done yesterday. Pulled NG tube out overnight and replaced. * KUB today showed: Findings: Large amount of retained fecal material in the right colon. There is dilated small bowel throughout the abdomen, consistent with obstruction. There is an IVC filter present, position unchanged. No abnormal calcifications. There is moderate lumbar spondylosis with levoscolios is. There is ostial hips. Impression: 1: Small bowel obstruction. * KUB in the AM. * Anti-emetics; Optimize analgesia * Blood cultures no growth to date. (2) UTI (urinary tract infection): Code(s): N39.0 - Urinary tract infection, site not specified Status: Acute Assessment and Plan: * Urine culture grew pseudomonas aeruginosa. Sensitivities are not back. * Cefepime 2 gram IVPB q 12. (3) Constipation: Code(s): K59.00 - Constipation, unspecified Status: Acute Assessment and Plan: * Will continue with NG tube decompression and bowel rest now and continue IV fluids. * Hypaque enema done yesterday. (4) Hypertension: Qualifiers: Hypertension type: primary hypertension Qualified Code(s): I10 - Essential (primary) hypertension Code(s): I10 - Essential (primary) hypertension Status: Chronic Assessment and Plan: * Blood pressure 134/57. (5) Hypokalemia: Code(s): E87.6 - Hypokalemia Status: Acute Assessment and Plan: * Potassium 3.4. * Potassium Chloride 40 meq IVPB x1 given. * Trend level. (6) Hypomagnesemia: Code(s): E83.42 - Hypomagnesemia Status: Acute Assessment and Plan: * Magnesium 2.2 today, improved * Trend level. Plan Acute and principal conditions 1. SBO 2. Cystitis 3. Proctitis 4. Mild left hydronephrosis; Pyelitis 5. Small bilateral effusions 6. CAUTI 7. HAGMA Rx: * NPO; IVFs; * Anti-emetics; Optimize analgesia * General surgery consulted * Ceftriaxone Chronic and stable conditions * Pressure wounds, Buttocks. unspecified stage * Dementia. * DVT * GERD * Dyslipidemia. * Hypertension. 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 Full * Nutrition. NPO * VTE prophylaxis. SCDs; SONIA Subjective Date/time seen: 09/28/24 15:17 Interval history: Patient report tenderness in abdomen when palpated that is a 5 , frequent, and cramping. Patient denies chest pain, palpitations, headache, dizziness, or nausea. Review of Systems Review of Systems: All systems reviewed & are unremarkable except as noted in HPI and below Exam Const: General: no acute distress and uncomfortable Resp: Effort & Inspection: normal respiratory effort Auscultation: clear to auscultation bilaterally Cardio: Rate: regular rate Rhythm: regular rhythm GI: Inspection: distended GI Palp: Yes Tenderness to palpation present (GI) Other: hypoactive bowel sounds. Skin: Other: Multiple open wounds to bilateral buttocks and left posterior thigh. Maceration noted. No necrotic area and minimal exudate. See wound care note and treatment. Neuro: Speech: normal speech Extrem: General: no pedal edema Psych: Mental Status: mental status grossly normal Affect: normal affect Objective Data Vital Signs Vital Signs: Vital Signs - 24 hr 09/27/24 16:00 09/27/24 18:00 09/27/24 20:00 Temperature Pulse Rate 109 H 96 Respiratory Rate 12 Blood Pressure 132/64 Pulse Oximetry 98 Oxygen Delivery Room Air 09/27/24 20:00 09/27/24 20:00 09/28/24 00:00 Temperature 98.6 F 98.4 F Pulse Rate 93 99 95 Respiratory Rate 20 18 Blood Pressure 120/98 H 133/67 Pulse Oximetry 98 99 Oxygen Delivery 09/28/24 03:46 09/28/24 07:43 09/28/24 10:17 Temperature 97.1 F L 97.6 F Pulse Rate 91 97 97 Respiratory Rate 18 18 18 Blood Pressure 132/60 134/57 L Pulse Oximetry 96 98 98 Oxygen Delivery Room Air 09/28/24 12:00 Temperature 97.3 F L Pulse Rate 96 Respiratory Rate 16 Blood Pressure 148/67 H Pulse Oximetry 99 Oxygen Delivery Intake/Output Intake/Output: Intake & Output 09/25/24 09/26/24 09/27/24 09/28/24 23:59 23:59 23:59 23:59 Intake Total 1050 2467.1 1050 Output Total 1200 1500 Balance 1050 1267.1 -450 Meds/Results Medications: Active Medications Generic Name Dose Route Start Last Admin Trade Name Freq PRN Reason Stop Dose Admin Acetaminophen 650 mg 09/27/24 05:03 Acetaminophen 325 Mg Tablet FEED TUBE Q4H PRN Mild Pain (1-3) or Fever Heparin Sodium (Porcine) 5,000 units 09/27/24 09:00 09/28/24 08:21 Heparin Sodium 5,000 Units/Ml Vial SUB-Q 5,000 units Q12HR SONIA Administration Sodium Chloride 1,000 mls @ 100 mls/hr 09/26/24 22:25 09/28/24 04:37 Normal Saline Iv IV CONT 100 mls/hr .Q10H SONIA Administration Cefepime HCl 2 gm in 50 mls @ 100 mls/hr 09/28/24 14:30 09/28/24 14:57 Maxipime 2 Gm/Ns 50 Ml IVPB Infused Q12HR SONIA Infusion Melatonin 5 mg 09/27/24 05:03 Melatonin 5 Mg Tablet PO HS PRN Insomnia Morphine Sulfate 2 mg 09/26/24 22:23 Morphine Sulfate (*Crx) 2 Mg/Ml Inj IV PUSH Q2H PRN Pain Rated 7-10 Ondansetron HCl 4 mg 09/26/24 22:23 Ondansetron Inj 4 Mg/2 Ml Vial IV PUSH Q4H PRN Nausea Pantoprazole Sodium 20 mg 09/27/24 09:00 09/28/24 08:18 Pantoprazole Sodium Iv 40 Mg Vial IV PUSH 20 mg Q12HR SONIA Administration Radiology Results: ITS Impressions Abdomen/Pelvis CT 09/26/24 20:50 IMPRESSION: Small bilateral pleural effusions. Chronic intra and extra hepatic bile duct dilation. Mid small bowel obstruction, transition point may represent an area of adhesion or short segment infectious, inflammatory, or ischemic colitis. Mild left hydronephrosis and urothelial enhancement may represent ascending infection/pyelitis. Cystitis. Proctitis. Abdomen X-Ray 09/28/24 09:23 IMPRESSION: Nasogastric tube in good position and ready for immediate use. Labs Labs: Laboratory Results - last 24 hr 09/28/24 04:50 WBC 4.4 L RBC 2.63 L Hgb 7.6 L Hct 26.4 L MCV 100.4 H MCH 28.9 MCHC 28.8 L RDW 15.7 H Plt Count 180 MPV 9.7 Immature Gran % (Auto) 0.7 H Neut % (Auto) 69.2 Lymph % (Auto) 12.1 L [place] % (Auto) 13.2 H Eos % (Auto) 3.4 Baso % (Auto) 1.4 H Lymph # (Auto) 0.53 L [place] # (Auto) 0.6 Eos # (Auto) 0.2 Baso # (Auto) 0.1 Abs Immat Gran (auto) 0.03 Absolute Neuts (auto) 3.0 Absolute Nucleated RBC 0.000 Band Neutrophils % Not Reportable Nucleated RBC % 0.0 Platelet Estimate Adequate Anisocytosis 1+ Ovalocytes 1+ Makayla Cells 1+ Schistocytes None seen Sodium 141 Potassium 3.4 Chloride 116 H Carbon Dioxide 17 L Anion Gap 8 BUN 18 H Creatinine 0.87 Estim Creat Clear Calc 50 Estimated GFR > 60 Glucose 70 Calcium 8.0 L Magnesium 2.2 Total Bilirubin 0.3 AST 18 ALT 8 Alkaline Phosphatase 63 Total Protein 5.0 L Albumin 2.6 L Quality VTE Prophylaxis VTE prophylaxis: mechanical ordered and pharmacologic ordered
[2024-09-29] VITALS (8 sets, daily range): BP systolic 120–153; BP diastolic 58–90; PULSE 99–116; RESP 16–18; TEMP 36.4–37.4; O2SAT 98–100
[2024-09-29 05:14] LABS: Basophils Absolute Auto 0.1 K/mm3 (0.0-0.1); Basophils Percent Auto 0.8 % (0.2-1.2); Eosinophils Absolute Auto 0.1 K/mm3 (0-0.3); Eosinophils Percent Auto 1.3 % (0-4.4); Hematocrit 28.1 % (37.0-47.0); Hemoglobin 8.6 g/dL (12.0-15.0); Immature Granulocyte Absolute 0.03 K/mm3 (0.00-0.031); Immature Granulocyte Percent A 0.5 % (0-0.5); Lymphocytes Absolute Auto 0.45 K/mm3 (0.9-3.2); Lymphocytes Percent Auto 7.5 % (18.3-44.2); Mean Corpuscular HGB Conc 30.6 g/dl (32-36); Mean Corpuscular Volume 94.6 fl (80-100); Mean Platelet Volume 9.5 fl (7.4-10.4); Monocytes Absolute Auto 0.6 K/mm3 (0.1-0.6); Monocytes Percent Auto 9.3 % (2.6-8.5); Neutrophils Absolute Auto 4.8 K/mm3 (1.3-6.7); Neutrophils Percent Auto 80.6 % (45.5-73.1); Platelet Count Result 207 k/mm3 (150-375); Red Blood Count 2.97 M/mm3 (4.2-5.4); Red Cell Distribution Width 15.5 % (11.5-14.5)
[2024-09-29 06:18] LABS: Alanine Aminotransferase 9 U/L (6-35); Alkaline Phosphatase 69 U/L (38-126); Anion Gap 16 mmol/L (4-12); Aspartate Amino Transferase 22 U/L (14-36); Bilirubin,Total 0.5 mg/dL (0.2-1.3); Blood Urea Nitrogen 13 mg/dL (7-17); Calcium 8.7 mg/dL (8.4-10.2); Carbon Dioxide 11 mmol/L (22-30); Chloride 113 mmol/L (98-107); Estimated CRCL calculation 49 ml/min; Estimated Glomerular Filt Rate > 60; Glucose 73 mg/dL (65-110); Magnesium 1.7 mg/dL (1.6-2.3); Potassium 3.3 mmol/L (3.4-5.0); Sodium 140 mmol/L (137-145)
[2024-09-29] MEDS: SODIUM CHLORIDE 0.9% IV 1,000 ML 100 ML IV CONT (08:23)
[2024-09-29] MEDS: CEFEPIME 2 GM/NS 50 ML 2 GM/50 ML BAG IVPB (08:24)
[2024-09-29] MEDS: PANTOPRAZOLE SODIUM IV 40 MG VIAL 20 MG IV PUSH ×2 (08:27→20:51)
[2024-09-29] MEDS: HEPARIN SODIUM 5,000 UNITS/ML VIAL 5000 UNITS SUB-Q ×2 (08:27→20:54)
[2024-09-29] MEDS: SERTRALINE HCL 50 MG TABLET PO (08:28)
--- NOTE | 2024-09-29 13:26 | P.PNIM_ITS ---
Progress Note: A&P Assessment and Plan (1) Small bowel obstruction: Code(s): K56.609 - Unspecified intestinal obstruction, unspecified as to partial versus complete obstruction Status: Acute (2) Acute renal failure: Qualifiers: Acute renal failure type: unspecified Qualified Code(s): N17.9 - Acute kidney failure, unspecified Code(s): N17.9 - Acute kidney failure, unspecified Status: Acute (3) Catheter-associated urinary tract infection: Qualifiers: Encounter type: initial encounter Indwelling urinary catheter type: indwelling urethral catheter Qualified Code(s): T83.511A - Infection and inflammatory reaction due to indwelling urethral catheter, initial encounter; N39.0 - Urinary tract infection, site not specified Code(s): T83.511A - Infection and inflammatory reaction due to indwelling urethral catheter, initial encounter; N39.0 - Urinary tract infection, site not specified Status: Acute Plan Patsy Hugo is a 64-year-old female with a medical history significant for dementia, sedentary status, pressure ulcers around the sacrum, constipation, depression, GERD, dyslipidemia, chronic indwelling White catheter A resident of [facility], she was recently evaluated and managed for sepsis, fecal impaction an SBO (09/16-02/07) and discharged . staff were concerned about abdominal pain with nausea and vomiting; symptoms aggravated by meals/fluids, alleviated by fasting; associated with some anxiety and restlessness. Small bowel obstruction and fecal impaction Code(s): K56.609 - Unspecified intestinal obstruction, unspecified as to partial versus complete obstruction Status: Acute Assessment and Plan: CT scan also shows a large amount of stool in her right colon, which could be contributing to or causing this issue. Hypaque enema done Pulled NG tube out overnight and replaced. KUB Findings: Large amount of retained fecal material in the right colon. There is dilated small bowel throughout the abdomen, consistent with obstruction. There is an IVC filter present, position unchanged. No abnormal calcifications. There is moderate lumbar spondylosis with levoscoliosis. UTI (urinary tract infection): Code(s): N39.0 - Urinary tract infection, site not specified Status: Acute Assessment and Plan: * Urine culture grew pseudomonas aeruginosa. Sensitivities are not back. * Cefepime 2 gram IVPB q 12. * Constipation AND FECAL IMPACTION: Code(s): K59.00 - Constipation, unspecified Status: Acute Assessment and Plan: continue with NG tube decompression and bowel rest now and continue IV fluids. Hypaque enema PRN Hypertension: Qualifiers: Hypertension type: primary hypertension Qualified Code(s): I10 - Essential (primary) hypertension Code(s): I10 - Essential (primary) hypertension Status: Chronic Assessment and Plan: Blood pressure is well control Hypokalemia: Code(s): E87.6 - Hypokalemia Status: Acute Assessment and Plan: Potassium Chloride 40 meq IVPB PRN to keep K wnl Hypomagnesemia: Code(s): E83.42 - Hypomagnesemia Status: Acute Assessment and Plan: corrected Subjective Date/time seen: 09/29/24 13:26 Interval history: I saw examined the patient today, patient is on NG tube suction intermittently Feels better today Denies nausea vomiting Exam Narrative: GENERAL: Pleasant, in no acute distress. Well-nourished. - EYES: EOMI. Anicteric. - HENT: Moist mucous membranes. - LUNGS: Clear to auscultation bilateral ly, no wheezing, rhonchi, or rales. - CARDIOVASCULAR: Regular rate and rhyth m. No murmur. No JVD. - ABDOMEN: Soft, non-tender and non-dist ended. No palpable masses. - EXTREMITIES: No edema. Peripheral puls es 2+. Non-tender. - NEUROLOGIC: No focal neurological defi cits. CN II-XII grossly intact. - PSYCHIATRIC: Awake, Alert and oriented x 3. Appropriate mood and affect. - SKIN: No rashes or lesions. Warm. - LYMPH: No cervical lymphadenopathy. Objective Data Vital Signs Vital Signs: Vital Signs - 24 hr 09/28/24 16:00 09/28/24 19:44 09/28/24 21:00 Temperature 97.9 F 98.4 F Pulse Rate 102 H 98 Respiratory Rate 20 17 Blood Pressure 135/63 137/63 Pulse Oximetry 98 99 Oxygen Delivery Room Air 09/29/24 00:00 09/29/24 03:51 09/29/24 08:00 Temperature 98.1 F 97.9 F 98.5 F Pulse Rate 99 103 H 111 H Respiratory Rate 17 16 16 Blood Pressure 120/58 L 136/73 145/90 H Pulse Oximetry 100 98 98 Oxygen Delivery 09/29/24 08:00 Temperature Pulse Rate Respiratory Rate Blood Pressure Pulse Oximetry Oxygen Delivery Room Air Intake/Output Intake/Output: Intake & Output 09/26/24 09/27/24 09/28/24 09/29/24 23:59 23:59 23:59 23:59 Intake Total 1050 2467.1 2100 891.7 Output Total 1200 2950 1300 Balance 1050 1267.1 -850 -408.3 Meds/Results Medications: Active Medications Generic Name Dose Route Start Last Admin Trade Name Freq PRN Reason Stop Dose Admin Acetaminophen 650 mg 09/27/24 05:03 Acetaminophen 325 Mg Tablet FEED TUBE Q4H PRN Mild Pain (1-3) or Fever Heparin Sodium (Porcine) 5,000 units 09/27/24 09:00 09/29/24 08:27 Heparin Sodium 5,000 Units/Ml Vial SUB-Q 5,000 units Q12HR SONIA Administration Sodium Chloride 1,000 mls @ 100 mls/hr 09/26/24 22:25 09/29/24 08:23 Normal Saline Iv IV CONT 100 mls/hr .Q10H SONIA Administration Cefepime HCl 2 gm in 50 mls @ 100 mls/hr 09/28/24 14:30 09/29/24 08:24 Maxipime 2 Gm/Ns 50 Ml IVPB 100 mls/hr Q12HR SONIA Administration Melatonin 5 mg 09/27/24 05:03 Melatonin 5 Mg Tablet PO HS PRN Insomnia Morphine Sulfate 2 mg 09/26/24 22:23 Morphine Sulfate (*Crx) 2 Mg/Ml Inj IV PUSH Q2H PRN Pain Rated 7-10 Ondansetron HCl 4 mg 09/26/24 22:23 Ondansetron Inj 4 Mg/2 Ml Vial IV PUSH Q4H PRN Nausea Pantoprazole Sodium 20 mg 09/27/24 09:00 09/29/24 08:27 Pantoprazole Sodium Iv 40 Mg Vial IV PUSH 20 mg Q12HR SONIA Administration Sertraline HCl 50 mg 09/29/24 09:00 09/29/24 08:28 Sertraline Hcl 50 Mg Tablet PO 50 mg DAILY SONIA Administration Radiology Results: ITS Impressions Abdomen/Pelvis CT 09/26/24 20:50 IMPRESSION: Small bilateral pleural effusions. Chronic intra and extra hepatic bile duct dilation. Mid small bowel obstruction, transition point may represent an area of adhesion or short segment infectious, inflammatory, or ischemic colitis. Mild left hydronephrosis and urothelial enhancement may represent ascending infection/pyelitis. Cystitis. Proctitis. Abdomen X-Ray 09/29/24 07:44 Impression: NG tube in place. Possible small bowel obstruction. Small Bowel X-Ray 09/29/24 12:13 IMPRESSION: 1. Persistent mildly dilated loops of small bowel but without discrete transition point and with normal small bowel transit time consistent with resolving versus partial small bowel obstruction. Labs Labs: Laboratory Results - last 24 hr 09/29/24 04:29 WBC 6.0 RBC 2.97 L Hgb 8.6 L Hct 28.1 L MCV 94.6 D MCH 29.0 MCHC 30.6 L RDW 15.5 H Plt Count 207 MPV 9.5 Immature Gran % (Auto) 0.5 Neut % (Auto) 80.6 H Lymph % (Auto) 7.5 L [place] % (Auto) 9.3 H Eos % (Auto) 1.3 Baso % (Auto) 0.8 Lymph # (Auto) 0.45 L [place] # (Auto) 0.6 Eos # (Auto) 0.1 Baso # (Auto) 0.1 Abs Immat Gran (auto) 0.03 Absolute Neuts (auto) 4.8 Absolute Nucleated RBC 0.000 Nucleated RBC % 0.0 Sodium 140 Potassium 3.3 L Chloride 113 H Carbon Dioxide 11 L Anion Gap 16 H BUN 13 D Creatinine 0.88 Estim Creat Clear Calc 49 Estimated GFR > 60 Glucose 73 Calcium 8.7 Magnesium 1.7 Total Bilirubin 0.5 AST 22 ALT 9 Alkaline Phosphatase 69 Total Protein 5.0 L Albumin 3.0 L
[2024-09-29] MEDS: MAGNESIUM SULF 2 GM/WATER 50ML 2 GM/50 ML BAG IVPB (13:46)
--- NOTE | 2024-09-29 15:40 | P.PNGS_ITS ---
Progress Note: A&P Assessment and Plan (1) Small bowel obstruction: Code(s): K56.609 - Unspecified intestinal obstruction, unspecified as to partial versus complete obstruction Status: Acute Assessment and Plan: SBS ordered today and showed persistent mildly dilated small bowel loops without transition point and normal transit to the colon c/w resolving or PSBO. She is still distended and tender. Not having any bowel movements yet. Continue NG decompression, bowel rest, and IV fluids. (2) Constipation: Code(s): K59.00 - Constipation, unspecified Status: Acute Assessment and Plan: Water soluble contrast will hopefully help stimulate her bowels. (3) Chronic indwelling White catheter: Code(s): Z97.8 - Presence of other specified devices Status: Acute (4) Chronic anemia: Code(s): D64.9 - Anemia, unspecified Status: Chronic Assessment and Plan: Stable (5) Pressure ulcer of buttock: Qualifiers: Pressure injury stage: unstageable Laterality: unspecified laterality Qualified Code(s): L89.300 - Pressure ulcer of unspecified buttock, unstageable Code(s): L89.309 - Pressure ulcer of unspecified buttock, unspecified stage Status: Acute Assessment and Plan: Continue local wound care and frequent turning (6) Dementia: Code(s): F03.90 - Unspecified dementia, unspecified severity, without behavioral disturbance, psychotic disturbance, mood disturbance, and anxiety Status: Chronic (7) Presence of IVC filter: Code(s): Z95.828 - Presence of other vascular implants and grafts Status: Chronic Plan I have discussed the patient's case and plan of care with Dr. Cardenas. Subjective Subjective Date/Time Seen: 09/29/24 15:40 Patient reports: no new complaints, no flatus and no bowel movement Interval history: Patient with history of dementia. She is alert and calm, but refusing to answer any questions again today. Minimal NG output. Still no BM. Exam Const: General: comfortable and no acute distress Orientation/consciousness: confusion GI: Inspection: distended GI Palp: Yes Soft to palpation, Yes Tenderness to palpation present (GI) and No Guarding due to palpation present (GI) Auscultation: Hypoactive bowel sounds present Objective Data Vital Signs Vital Signs: Vital Signs - 24 hr 09/28/24 16:00 09/28/24 19:44 09/28/24 21:00 Temperature 97.9 F 98.4 F Pulse Rate 102 H 98 Respiratory Rate 20 17 Blood Pressure 135/63 137/63 Pulse Oximetry 98 99 Oxygen Delivery Room Air 09/29/24 00:00 09/29/24 03:51 09/29/24 08:00 Temperature 98.1 F 97.9 F 98.5 F Pulse Rate 99 103 H 111 H Respiratory Rate 17 16 16 Blood Pressure 120/58 L 136/73 145/90 H Pulse Oximetry 100 98 98 Oxygen Delivery 09/29/24 08:00 09/29/24 12:00 Temperature 98.4 F Pulse Rate 110 H Respiratory Rate 16 Blood Pressure 148/89 H Pulse Oximetry 98 Oxygen Delivery Room Air Intake/Output Intake/Output: Intake & Output 09/26/24 09/27/24 09/28/24 09/29/24 23:59 23:59 23:59 23:59 Intake Total 1050 2467.1 2100 891.7 Output Total 1200 2950 1300 Balance 1050 1267.1 -850 -408.3 Meds/Results Medications: Active Medications Generic Name Dose Route Start Last Admin Trade Name Freq PRN Reason Stop Dose Admin Acetaminophen 650 mg 09/27/24 05:03 Acetaminophen 325 Mg Tablet FEED TUBE Q4H PRN Mild Pain (1-3) or Fever Heparin Sodium (Porcine) 5,000 units 09/27/24 09:00 09/29/24 08:27 Heparin Sodium 5,000 Units/Ml Vial SUB-Q 5,000 units Q12HR SONIA Administration Sodium Chloride 1,000 mls @ 100 mls/hr 09/26/24 22:25 09/29/24 08:23 Normal Saline Iv IV CONT 100 mls/hr .Q10H SONIA Administration Potassium Chloride 40 meq/ 520 mls @ 130 mls/hr 09/29/24 13:36 Sodium Chloride IVPB 09/29/24 17:35 ONCE ONE Magnesium Sulfate 2 gm in 50 mls @ 25 mls/hr 09/29/24 13:37 09/29/24 13:46 Magnesium Sulf 2 Gm/Water 50ml IVPB 09/29/24 15:36 25 mls/hr ONCE ONE Administration Levofloxacin 750 mg 09/29/24 21:00 Levofloxacin 750 Mg Tablet PO 10/03/24 21:01 Q48H SONIA Melatonin 5 mg 09/27/24 05:03 Melatonin 5 Mg Tablet PO HS PRN Insomnia Morphine Sulfate 2 mg 09/26/24 22:23 Morphine Sulfate (*Crx) 2 Mg/Ml Inj IV PUSH Q2H PRN Pain Rated 7-10 Ondansetron HCl 4 mg 09/26/24 22:23 Ondansetron Inj 4 Mg/2 Ml Vial IV PUSH Q4H PRN Nausea Pantoprazole Sodium 20 mg 09/27/24 09:00 09/29/24 08:27 Pantoprazole Sodium Iv 40 Mg Vial IV PUSH 20 mg Q12HR SONIA Administration Sertraline HCl 50 mg 09/29/24 09:00 09/29/24 08:28 Sertraline Hcl 50 Mg Tablet PO 50 mg DAILY SONIA Administration Radiology Results: ITS Impressions Abdomen/Pelvis CT 09/26/24 20:50 IMPRESSION: Small bilateral pleural effusions. Chronic intra and extra hepatic bile duct dilation. Mid small bowel obstruction, transition point may represent an area of adhesion or short segment infectious, inflammatory, or ischemic colitis. Mild left hydronephrosis and urothelial enhancement may represent ascending infection/pyelitis. Cystitis. Proctitis. Abdomen X-Ray 09/29/24 07:44 Impression: NG tube in place. Possible small bowel obstruction. Small Bowel X-Ray 09/29/24 12:13 IMPRESSION: 1. Persistent mildly dilated loops of small bowel but without discrete transition point and with normal small bowel transit time consistent with resolving versus partial small bowel obstruction. Labs Labs: Laboratory Results - last 24 hr 09/29/24 04:29 WBC 6.0 RBC 2.97 L Hgb 8.6 L Hct 28.1 L MCV 94.6 D MCH 29.0 MCHC 30.6 L RDW 15.5 H Plt Count 207 MPV 9.5 Immature Gran % (Auto) 0.5 Neut % (Auto) 80.6 H Lymph % (Auto) 7.5 L [place] % (Auto) 9.3 H Eos % (Auto) 1.3 Baso % (Auto) 0.8 Lymph # (Auto) 0.45 L [place] # (Auto) 0.6 Eos # (Auto) 0.1 Baso # (Auto) 0.1 Abs Immat Gran (auto) 0.03 Absolute Neuts (auto) 4.8 Absolute Nucleated RBC 0.000 Nucleated RBC % 0.0 Sodium 140 Potassium 3.3 L Chloride 113 H Carbon Dioxide 11 L Anion Gap 16 H BUN 13 D Creatinine 0.88 Estim Creat Clear Calc 49 Estimated GFR > 60 Glucose 73 Calcium 8.7 Magnesium 1.7 Total Bilirubin 0.5 AST 22 ALT 9 Alkaline Phosphatase 69 Total Protein 5.0 L Albumin 3.0 L
[2024-09-29] MEDS: POTASSIUM CHLORIDE INJ 40 MEQ in SODIUM CHLORIDE 0.9% IV 500 ML 130 MEQ IVPB (16:32)
[2024-09-29] MEDS: levoFLOXacin 750 MG TABLET PO (20:50)
[2024-09-29] MEDS: MELATONIN 5 MG TABLET PO (20:50)
[2024-09-30] MEDS: SODIUM CHLORIDE 0.9% IV 1,000 ML 100 ML IV CONT ×2 (03:29→14:57)
[2024-09-30 03:47] VITALS: BP 146/79; PULSE 117; RESP 18; TEMP 36.7; O2SAT 98
[2024-09-30 05:29] LABS: Basophils Absolute Auto 0.1 K/mm3 (0.0-0.1); Eosinophils Percent Auto 0.2 % (0-4.4); Hematocrit 30.2 % (37.0-47.0); Hemoglobin 9.2 g/dL (12.0-15.0); Immature Granulocyte Absolute 0.05 K/mm3 (0.00-0.031); Lymphocytes Absolute Auto 0.49 K/mm3 (0.9-3.2); Mean Corpuscular HGB Conc 30.5 g/dl (32-36); Mean Corpuscular Hemoglobin 29.6 pg (26-34); Mean Corpuscular Volume 97.1 fl (80-100); Mean Platelet Volume 9.4 fl (7.4-10.4); Monocytes Absolute Auto 0.5 K/mm3 (0.1-0.6); Monocytes Percent Auto 9.2 % (2.6-8.5); Neutrophils Absolute Auto 3.9 K/mm3 (1.3-6.7); Neutrophils Percent Auto 78.6 % (45.5-73.1); Platelet Count Result 220 k/mm3 (150-375); Red Blood Count 3.11 M/mm3 (4.2-5.4); Red Cell Distribution Width 15.6 % (11.5-14.5); White Blood Count 4.9 K/mm3 (4.5-10.0)
[2024-09-30 05:40] LABS: Alanine Aminotransferase 10 U/L (6-35); Albumin Level 3.2 g/dL (3.5-5.1); Alkaline Phosphatase 78 U/L (38-126); Anion Gap 15 mmol/L (4-12); Aspartate Amino Transferase 19 U/L (14-36); Bilirubin,Total 0.8 mg/dL (0.2-1.3); Blood Urea Nitrogen 11 mg/dL (7-17); Calcium 8.8 mg/dL (8.4-10.2); Carbon Dioxide 10 mmol/L (22-30); Chloride 117 mmol/L (98-107); Estimated CRCL calculation 50 ml/min; Estimated Glomerular Filt Rate > 60; Glucose 94 mg/dL (65-110); Magnesium 2.3 mg/dL (1.6-2.3); Potassium 3.6 mmol/L (3.4-5.0); Sodium 142 mmol/L (137-145)
--- NOTE | 2024-09-30 07:40 | PM.PNGS ---
Progress Note: A&P Assessment and Plan (1) Small bowel obstruction: Code(s): K56.609 - Unspecified intestinal obstruction, unspecified as to partial versus complete obstruction Status: Acute Assessment and Plan: Small bowel series showed transit into the colon in 2 hours with continued dilated small bowel but no transition point. This morning's film shows contrast to be entirely in the colon. Patient had no bowel movements after yesterday's study which is unusual. Clinically, she looks much better. I think at this point, her main problem is residual stool throughout her colon which was easily seen on her admitting imaging. Will go ahead and give her a soapsuds enema today. Will give her MiraLax per NG twice today. Recheck plain films and labs as well as exam again tomorrow. (2) Constipation: Code(s): K59.00 - Constipation, unspecified Status: Acute Assessment and Plan: Patient takes many medications chronically for constipation including lactulose, MiraLax, Colace. I think this is the problem at this point. Please see above. (3) Chronic indwelling White catheter: Code(s): Z97.8 - Presence of other specified devices Status: Acute (4) Chronic anemia: Code(s): D64.9 - Anemia, unspecified Status: Chronic Assessment and Plan: Stable (5) Pressure ulcer of buttock: Qualifiers: Pressure injury stage: unstageable Laterality: unspecified laterality Qualified Code(s): L89.300 - Pressure ulcer of unspecified buttock, unstageable Code(s): L89.309 - Pressure ulcer of unspecified buttock, unspecified stage Status: Acute Assessment and Plan: Continue local wound care and frequent turning (6) Dementia: Code(s): F03.90 - Unspecified dementia, unspecified severity, without behavioral disturbance, psychotic disturbance, mood disturbance, and anxiety Status: Chronic (7) Presence of IVC filter: Code(s): Z95.828 - Presence of other vascular implants and grafts Status: Chronic Subjective Subjective Date/Time Seen: 09/30/24 07:40 Patient reports: no new complaints, feels better, pain is less, no bowel movement (No bowel movement after water-soluble contrast study) and afebrile Review of Systems Review of Systems: All systems reviewed & are unremarkable except as noted in HPI and below (HPI) Exam Const: General: cooperative, comfortable, no acute distress, alert and awake GI: Inspection: non-distended and scar GI Palp: Yes Soft to palpation, Yes Tenderness to palpation present (GI) (Minimal tenderness, no guarding), No Guarding due to palpation present (GI) and No Rebound tenderness present Auscultation: normal bowel sounds Extrem: General: no calf tenderness and no edema Objective Data Vital Signs Vital Signs: Vital Signs - 24 hr 09/29/24 08:00 09/29/24 08:00 09/29/24 12:00 Temperature 36.9 C 36.9 C Pulse Rate 111 H 110 H Respiratory Rate 16 16 Blood Pressure 145/90 H 148/89 H Pulse Oximetry 98 98 Oxygen Delivery Room Air 09/29/24 16:00 09/29/24 20:00 09/29/24 20:00 Temperature 36.4 C 37.4 C Pulse Rate 107 H 116 H Respiratory Rate 16 18 Blood Pressure 144/87 H 146/75 H Pulse Oximetry 98 98 Oxygen Delivery Room Air 09/29/24 21:00 09/29/24 23:38 09/30/24 03:47 Temperature 37.1 C 36.7 C Pulse Rate 109 H 117 H Respiratory Rate 17 18 Blood Pressure 153/70 H 146/79 H Pulse Oximetry 98 98 98 Oxygen Delivery Room Air Intake/Output Intake/Output: Intake & Output 09/27/24 09/28/24 09/29/24 09/30/24 23:59 23:59 23:59 23:59 Intake Total 2467.1 2100 1891.7 0 Output Total 1200 2950 3900 1300 Balance 1267.1 -850 -2008.3 -1300 Meds/Results Medications: Active Medications Generic Name Dose Route Start Last Admin Trade Name Freq PRN Reason Stop Dose Admin Acetaminophen 650 mg 09/27/24 05:03 Acetaminophen 325 Mg Tablet FEED TUBE Q4H PRN Mild Pain (1-3) or Fever Heparin Sodium (Porcine) 5,000 units 09/27/24 09:00 09/29/24 20:54 Heparin Sodium 5,000 Units/Ml Vial SUB-Q 5,000 units Q12HR SONIA Administration Sodium Chloride 1,000 mls @ 100 mls/hr 09/26/24 22:25 09/30/24 03:29 Normal Saline Iv IV CONT 100 mls/hr .Q10H SONIA Administration Levofloxacin 750 mg 09/29/24 21:00 09/29/24 20:50 Levofloxacin 750 Mg Tablet PO 10/03/24 21:01 750 mg Q48H SONIA Administration Melatonin 5 mg 09/27/24 05:03 09/29/24 20:50 Melatonin 5 Mg Tablet PO 5 mg HS PRN Administration Insomnia Morphine Sulfate 2 mg 09/26/24 22:23 Morphine Sulfate (*Crx) 2 Mg/Ml Inj IV PUSH Q2H PRN Pain Rated 7-10 Ondansetron HCl 4 mg 09/26/24 22:23 Ondansetron Inj 4 Mg/2 Ml Vial IV PUSH Q4H PRN Nausea Pantoprazole Sodium 20 mg 09/27/24 09:00 09/29/24 20:51 Pantoprazole Sodium Iv 40 Mg Vial IV PUSH 20 mg Q12HR SONIA Administration Sertraline HCl 50 mg 09/29/24 09:00 09/29/24 08:28 Sertraline Hcl 50 Mg Tablet PO 50 mg DAILY SONIA Administration Radiology Results: ITS Impressions Abdomen/Pelvis CT 09/26/24 20:50 IMPRESSION: Small bilateral pleural effusions. Chronic intra and extra hepatic bile duct dilation. Mid small bowel obstruction, transition point may represent an area of adhesion or short segment infectious, inflammatory, or ischemic colitis. Mild left hydronephrosis and urothelial enhancement may represent ascending infection/pyelitis. Cystitis. Proctitis. Small Bowel X-Ray 09/29/24 12:13 IMPRESSION: 1. Persistent mildly dilated loops of small bowel but without discrete transition point and with normal small bowel transit time consistent with resolving versus partial small bowel obstruction. Abdomen X-Ray 09/30/24 06:51 Impression: NG tube present with somewhat nonspecific bowel gas pattern. Partial small bowel obstruction is a potential consideration. Labs Labs: Laboratory Results - last 24 hr 09/30/24 04:16 WBC 4.9 RBC 3.11 L Hgb 9.2 L Hct 30.2 L MCV 97.1 MCH 29.6 MCHC 30.5 L RDW 15.6 H Plt Count 220 MPV 9.4 Immature Gran % (Auto) 1.0 H Neut % (Auto) 78.6 H Lymph % (Auto) 10.0 L [place] % (Auto) 9.2 H Eos % (Auto) 0.2 Baso % (Auto) 1.0 Lymph # (Auto) 0.49 L [place] # (Auto) 0.5 Eos # (Auto) 0.0 Baso # (Auto) 0.1 Abs Immat Gran (auto) 0.05 H Absolute Neuts (auto) 3.9 Absolute Nucleated RBC 0.000 Nucleated RBC % 0.0 Sodium 142 Potassium 3.6 Chloride 117 H Carbon Dioxide 10 L Anion Gap 15 H BUN 11 Creatinine 0.87 Estim Creat Clear Calc 50 Estimated GFR > 60 Glucose 94 Calcium 8.8 Magnesium 2.3 Total Bilirubin 0.8 AST 19 ALT 10 Alkaline Phosphatase 78 Total Protein 6.0 L Albumin 3.2 L Imaging Attestation: I personally reviewed and interpreted this imaging study as follows: (Abdominal film from this morning) My impression: Contrast from yesterday is entirely in the colon. Small bowel dilatation is decreased but still present Radiologist's impression: Nonspecific bowel gas pattern, partial small-bowel obstruction still a consideration.
[2024-09-30 08:00] VITALS: BP 149/81; PULSE 111; RESP 14; TEMP 37.1; O2SAT 98
--- NOTE | 2024-09-30 08:00 | P.PNIM_ITS ---
Progress Note: A&P Assessment and Plan (1) Small bowel obstruction: Code(s): K56.609 - Unspecified intestinal obstruction, unspecified as to partial versus complete obstruction Status: Acute (2) Acute renal failure: Qualifiers: Acute renal failure type: unspecified Qualified Code(s): N17.9 - Acute kidney failure, unspecified Code(s): N17.9 - Acute kidney failure, unspecified Status: Acute (3) Catheter-associated urinary tract infection: Qualifiers: Encounter type: initial encounter Indwelling urinary catheter type: indwelling urethral catheter Qualified Code(s): T83.511A - Infection and inflammatory reaction due to indwelling urethral catheter, initial encounter; N39.0 - Urinary tract infection, site not specified Code(s): T83.511A - Infection and inflammatory reaction due to indwelling urethral catheter, initial encounter; N39.0 - Urinary tract infection, site not specified Status: Acute Plan Patsy Hugo is a 64-year-old female with a medical history significant for dementia, sedentary status, pressure ulcers around the sacrum, constipation, depression, GERD, dyslipidemia, chronic indwelling White catheter A resident of [facility], she was recently evaluated and managed for sepsis, fecal impaction an SBO (09/16-02/07) and discharged . staff were concerned about abdominal pain with nausea and vomiting; symptoms aggravated by meals/fluids, alleviated by fasting; associated with some anxiety and restlessness. Small bowel obstruction and fecal impaction Code(s): K56.609 - Unspecified intestinal obstruction, unspecified as to partial versus complete obstruction Status: Acute Assessment and Plan: CT scan also shows a large amount of stool in her right colon, which could be contributing to or causing this issue. Hypaque enema done Pulled NG tube out overnight and replaced. KUB Findings: Large amount of retained fecal material in the right colon. There is dilated small bowel throughout the abdomen, consistent with obstruction. There is an IVC filter present, position unchanged. No abnormal calcifications. There is moderate lumbar spondylosis with levoscoliosis. UTI (urinary tract infection): Code(s): N39.0 - Urinary tract infection, site not specified Status: Acute Assessment and Plan: Urine culture grew pseudomonas aeruginosa. Sensitivities to all abx Switch from Cefepime 2 gram IVPB q 12. Do Levaquin 500 mg IV daily Constipation AND FECAL IMPACTION: Code(s): K59.00 - Constipation, unspecified Status: Acute Assessment and Plan: continue with NG tube decompression and bowel rest now and continue IV fluids. Hypaque enema PRN Hypertension: Qualifiers: Hypertension type: primary hypertension Qualified Code(s): I10 - Essential (primary) hypertension Code(s): I10 - Essential (primary) hypertension Status: Chronic Assessment and Plan: Blood pressure is well control Hypokalemia: Code(s): E87.6 - Hypokalemia Status: Acute Assessment and Plan: Potassium Chloride 40 meq IVPB PRN to keep K wnl Hypomagnesemia: Code(s): E83.42 - Hypomagnesemia Status: Acute Assessment and Plan: corrected Subjective Date/time seen: 09/30/24 08:00 Interval history: I saw examined the patient today in presents of patient's nurse, patient is on NG tube suction intermittently Feels better today Denies nausea vomiting Labs reviewed Exam Narrative: GENERAL: Pleasant, in no acute distress. Well-nourished. - EYES: EOMI. Anicteric. - HENT: Moist mucous membranes. - LUNGS: Clear to auscultation bilateral ly, no wheezing, rhonchi, or rales. - CARDIOVASCULAR: Regular rate and rhyth m. No murmur. No JVD. - ABDOMEN: Soft, non-tender and non-dist ended. No palpable masses. - EXTREMITIES: No edema. Peripheral puls es 2+. Non-tender. - NEUROLOGIC: No focal neurological defi cits. CN II-XII grossly intact. - PSYCHIATRIC: Awake, Alert and oriented x 3. Appropriate mood and affect. - SKIN: No rashes or lesions. Warm. - LYMPH: No cervical lymphadenopathy. Objective Data Vital Signs Vital Signs: Vital Signs - 24 hr 09/29/24 12:00 09/29/24 16:00 09/29/24 20:00 Temperature 98.4 F 97.6 F 99.4 F Pulse Rate 110 H 107 H 116 H Respiratory Rate 16 16 18 Blood Pressure 148/89 H 144/87 H 146/75 H Pulse Oximetry 98 98 98 Oxygen Delivery 09/29/24 20:00 09/29/24 21:00 09/29/24 23:38 Temperature 98.8 F Pulse Rate 109 H Respiratory Rate 17 Blood Pressure 153/70 H Pulse Oximetry 98 98 Oxygen Delivery Room Air Room Air 09/30/24 03:47 Temperature 98.0 F Pulse Rate 117 H Respiratory Rate 18 Blood Pressure 146/79 H Pulse Oximetry 98 Oxygen Delivery Intake/Output Intake/Output: Intake & Output 09/27/24 09/28/24 09/29/24 09/30/24 23:59 23:59 23:59 23:59 Intake Total 2467.1 2100 1891.7 0 Output Total 1200 2950 3900 1300 Balance 1267.1 -850 -2008.3 -1300 Meds/Results Medications: Active Medications Generic Name Dose Route Start Last Admin Trade Name Freq PRN Reason Stop Dose Admin Acetaminophen 650 mg 09/27/24 05:03 Acetaminophen 325 Mg Tablet FEED TUBE Q4H PRN Mild Pain (1-3) or Fever Heparin Sodium (Porcine) 5,000 units 09/27/24 09:00 09/29/24 20:54 Heparin Sodium 5,000 Units/Ml Vial SUB-Q 5,000 units Q12HR SONIA Administration Sodium Chloride 1,000 mls @ 100 mls/hr 09/26/24 22:25 09/30/24 03:29 Normal Saline Iv IV CONT 100 mls/hr .Q10H SONIA Administration Levofloxacin 750 mg 09/29/24 21:00 09/29/24 20:50 Levofloxacin 750 Mg Tablet PO 10/03/24 21:01 750 mg Q48H SONIA Administration Melatonin 5 mg 09/27/24 05:03 09/29/24 20:50 Melatonin 5 Mg Tablet PO 5 mg HS PRN Administration Insomnia Morphine Sulfate 2 mg 09/26/24 22:23 Morphine Sulfate (*Crx) 2 Mg/Ml Inj IV PUSH Q2H PRN Pain Rated 7-10 Ondansetron HCl 4 mg 09/26/24 22:23 Ondansetron Inj 4 Mg/2 Ml Vial IV PUSH Q4H PRN Nausea Pantoprazole Sodium 20 mg 09/27/24 09:00 09/29/24 20:51 Pantoprazole Sodium Iv 40 Mg Vial IV PUSH 20 mg Q12HR SONIA Administration Polyethylene Glycol 17 gm 09/30/24 09:00 Polyethylene Glycol 3350 17 Gm Powd.Pack PO BID SONIA Sertraline HCl 50 mg 09/29/24 09:00 09/29/24 08:28 Sertraline Hcl 50 Mg Tablet PO 50 mg DAILY SONIA Administration Radiology Results: ITS Impressions Abdomen/Pelvis CT 09/26/24 20:50 IMPRESSION: Small bilateral pleural effusions. Chronic intra and extra hepatic bile duct dilation. Mid small bowel obstruction, transition point may represent an area of adhesion or short segment infectious, inflammatory, or ischemic colitis. Mild left hydronephrosis and urothelial enhancement may represent ascending infection/pyelitis. Cystitis. Proctitis. Small Bowel X-Ray 09/29/24 12:13 IMPRESSION: 1. Persistent mildly dilated loops of small bowel but without discrete transition point and with normal small bowel transit time consistent with resolving versus partial small bowel obstruction. Abdomen X-Ray 09/30/24 06:51 Impression: NG tube present with somewhat nonspecific bowel gas pattern. Partial small bowel obstruction is a potential consideration. Labs Labs: Laboratory Results - last 24 hr 09/30/24 04:16 WBC 4.9 RBC 3.11 L Hgb 9.2 L Hct 30.2 L MCV 97.1 MCH 29.6 MCHC 30.5 L RDW 15.6 H Plt Count 220 MPV 9.4 Immature Gran % (Auto) 1.0 H Neut % (Auto) 78.6 H Lymph % (Auto) 10.0 L [place] % (Auto) 9.2 H Eos % (Auto) 0.2 Baso % (Auto) 1.0 Lymph # (Auto) 0.49 L [place] # (Auto) 0.5 Eos # (Auto) 0.0 Baso # (Auto) 0.1 Abs Immat Gran (auto) 0.05 H Absolute Neuts (auto) 3.9 Absolute Nucleated RBC 0.000 Nucleated RBC % 0.0 Sodium 142 Potassium 3.6 Chloride 117 H Carbon Dioxide 10 L Anion Gap 15 H BUN 11 Creatinine 0.87 Estim Creat Clear Calc 50 Estimated GFR > 60 Glucose 94 Calcium 8.8 Magnesium 2.3 Total Bilirubin 0.8 AST 19 ALT 10 Alkaline Phosphatase 78 Total Protein 6.0 L Albumin 3.2 L
[2024-09-30] MEDS: KCL 20 MEQ/SW 100 ML 100 ML 50 MEQ IVPB (09:05)
[2024-09-30] MEDS: PANTOPRAZOLE SODIUM IV 40 MG VIAL 20 MG IV PUSH ×2 (09:05→20:38)
[2024-09-30] MEDS: HEPARIN SODIUM 5,000 UNITS/ML VIAL 5000 UNITS SUB-Q ×2 (09:06→20:38)
[2024-09-30] MEDS: polyethylene glycoL 3350 17 GM POWD.PACK PO ×2 (09:06→16:17)
[2024-09-30] MEDS: SERTRALINE HCL 50 MG TABLET PO (09:06)
[2024-09-30 11:49] VITALS: BMI 20.7
[2024-09-30 12:00] VITALS: BP 146/92; PULSE 105; RESP 14; TEMP 37.1; O2SAT 98
[2024-09-30] MEDS: ONDANSETRON INJ 4 MG/2 ML VIAL IV PUSH (14:57)
[2024-09-30 16:00] VITALS: BP 149/90; PULSE 119; RESP 14; TEMP 37.3; O2SAT 99
[2024-09-30 20:00] VITALS: BP 148/84; PULSE 112; RESP 17; TEMP 36.5; O2SAT 98
[2024-09-30] MEDS: ACETAMINOPHEN 325 MG TABLET 650 MG FEED TUBE (20:37)
[2024-09-30] MEDS: MELATONIN 5 MG TABLET PO (20:38)
[2024-09-30] MEDS: levoFLOXacin 500 MG/D5W 100 ML 500 MG/100 ML BAG 100 MG IVPB (21:24)
[2024-09-30 23:32] VITALS: BP 151/77; PULSE 106; RESP 17; TEMP 36.4; O2SAT 96
[2024-10-01] MEDS: SODIUM CHLORIDE 0.9% IV 1,000 ML 100 ML IV CONT (00:23)
[2024-10-01 05:00] VITALS: BP 156/87; PULSE 113; RESP 18; TEMP 36.8; O2SAT 97
[2024-10-01 05:46] LABS: Basophils Percent Auto 0.8 % (0.2-1.2); Eosinophils Percent Auto 0.2 % (0-4.4); Hematocrit 30.7 % (37.0-47.0); Hemoglobin 9.6 g/dL (12.0-15.0); Immature Granulocyte Absolute 0.06 K/mm3 (0.00-0.031); Immature Granulocyte Percent A 1.2 % (0-0.5); Lymphocytes Absolute Auto 0.68 K/mm3 (0.9-3.2); Lymphocytes Percent Auto 13.3 % (18.3-44.2); Mean Corpuscular HGB Conc 31.3 g/dl (32-36); Mean Corpuscular Hemoglobin 29.2 pg (26-34); Mean Corpuscular Volume 93.3 fl (80-100); Mean Platelet Volume 9.4 fl (7.4-10.4); Monocytes Absolute Auto 0.5 K/mm3 (0.1-0.6); Monocytes Percent Auto 9.8 % (2.6-8.5); Neutrophils Absolute Auto 3.8 K/mm3 (1.3-6.7); Neutrophils Percent Auto 74.7 % (45.5-73.1); Platelet Count Result 201 k/mm3 (150-375); Red Blood Count 3.29 M/mm3 (4.2-5.4); Red Cell Distribution Width 15.6 % (11.5-14.5); White Blood Count 5.1 K/mm3 (4.5-10.0)
[2024-10-01 05:58] LABS: Alanine Aminotransferase 9 U/L (6-35); Albumin Level 3.2 g/dL (3.5-5.1); Alkaline Phosphatase 78 U/L (38-126); Anion Gap 13 mmol/L (4-12); Aspartate Amino Transferase 18 U/L (14-36); Bilirubin,Total 0.7 mg/dL (0.2-1.3); Blood Urea Nitrogen 10 mg/dL (7-17); Calcium 8.9 mg/dL (8.4-10.2); Carbon Dioxide 13 mmol/L (22-30); Chloride 115 mmol/L (98-107); Estimated CRCL calculation 48 ml/min; Estimated Glomerular Filt Rate > 60; Glucose 84 mg/dL (65-110); Magnesium 1.9 mg/dL (1.6-2.3); Potassium 3.4 mmol/L (3.4-5.0); Sodium 141 mmol/L (137-145)
--- NOTE | 2024-10-01 07:06 | PM.PNGS ---
Progress Note: A&P Assessment and Plan (1) Small bowel obstruction: Code(s): K56.609 - Unspecified intestinal obstruction, unspecified as to partial versus complete obstruction Status: Acute Assessment and Plan: Appears to have resolved. Probably she did not even have a small bowel obstruction but had colonic relative obstruction due to retained stool. (2) Constipation: Qualifiers: Constipation type: chronic idiopathic constipation Qualified Code(s): K59.04 - Chronic idiopathic constipation Code(s): K59.00 - Constipation, unspecified Status: Acute Assessment and Plan: Patient takes many medications chronically for constipation including lactulose, MiraLax, Colace. I think this is the problem at this point. Patient has likely had her previous admission and this admission due to severe constipation and retained stool. Will ask GI to see for possible colonoscopy and treatment with medication. (3) Chronic indwelling White catheter: Code(s): Z97.8 - Presence of other specified devices Status: Acute (4) Chronic anemia: Code(s): D64.9 - Anemia, unspecified Status: Chronic Assessment and Plan: Stable (5) Pressure ulcer of buttock: Qualifiers: Pressure injury stage: unstageable Laterality: unspecified laterality Qualified Code(s): L89.300 - Pressure ulcer of unspecified buttock, unstageable Code(s): L89.309 - Pressure ulcer of unspecified buttock, unspecified stage Status: Acute Assessment and Plan: Continue local wound care and frequent turning (6) Dementia: Code(s): F03.90 - Unspecified dementia, unspecified severity, without behavioral disturbance, psychotic disturbance, mood disturbance, and anxiety Status: Chronic (7) Presence of IVC filter: Code(s): Z95.828 - Presence of other vascular implants and grafts Status: Chronic Subjective Subjective Date/Time Seen: 10/01/24 07:06 Patient reports: no new complaints, feels better, bowel movement and afebrile Review of Systems Review of Systems: All systems reviewed & are unremarkable except as noted in HPI and below (HPI) Exam Const: General: comfortable GI: Inspection: non-distended and scar GI Palp: Yes Soft to palpation and No Tenderness to palpation present (GI) Auscultation: normal bowel sounds Objective Data Vital Signs Vital Signs: Vital Signs - 24 hr 09/30/24 08:00 09/30/24 12:00 09/30/24 16:00 Temperature 37.1 C 37.1 C 37.3 C Pulse Rate 111 H 105 H 119 H Respiratory Rate 14 14 14 Blood Pressure 149/81 H 146/92 H 149/90 H Pulse Oximetry 98 98 99 Oxygen Delivery 09/30/24 20:00 09/30/24 20:30 09/30/24 23:32 Temperature 36.5 C 36.4 C Pulse Rate 112 H 106 H Respiratory Rate 17 17 Blood Pressure 148/84 H 151/77 H Pulse Oximetry 98 96 Oxygen Delivery Room Air 10/01/24 05:00 Temperature 36.8 C Pulse Rate 113 H Respiratory Rate 18 Blood Pressure 156/87 H Pulse Oximetry 97 Oxygen Delivery Intake/Output Intake/Output: Intake & Output 09/28/24 09/29/24 09/30/24 10/01/24 23:59 23:59 23:59 23:59 Intake Total 2100 1891.7 1100 943.3 Output Total 2950 3900 3250 3300 [facility]850 -2008.3 -2150 -2356.7 Meds/Results Medications: Active Medications Generic Name Dose Route Start Last Admin Trade Name Freq PRN Reason Stop Dose Admin Acetaminophen 650 mg 09/27/24 05:03 09/30/24 20:37 Acetaminophen 325 Mg Tablet FEED TUBE 650 mg Q4H PRN Administration Mild Pain (1-3) or Fever Heparin Sodium (Porcine) 5,000 units 09/27/24 09:00 09/30/24 20:38 Heparin Sodium 5,000 Units/Ml Vial SUB-Q 5,000 units Q12HR SONIA Administration Sodium Chloride 1,000 mls @ 100 mls/hr 09/26/24 22:25 10/01/24 00:23 Normal Saline Iv IV CONT 100 mls/hr .Q10H SONIA Administration Levofloxacin/Dextrose 500 mg in 100 mls @ 100 mls/hr 09/30/24 21:00 09/30/24 22:24 Levaquin 500 Mg/D5w 100 Ml IVPB Infused HS SONIA Infusion Melatonin 5 mg 09/27/24 05:03 09/30/24 20:38 Melatonin 5 Mg Tablet PO 5 mg HS PRN Administration Insomnia Morphine Sulfate 2 mg 09/26/24 22:23 Morphine Sulfate (*Crx) 2 Mg/Ml Inj IV PUSH Q2H PRN Pain Rated 7-10 Ondansetron HCl 4 mg 09/26/24 22:23 09/30/24 14:57 Ondansetron Inj 4 Mg/2 Ml Vial IV PUSH 4 mg Q4H PRN Administration Nausea Pantoprazole Sodium 20 mg 09/27/24 09:00 09/30/24 20:38 Pantoprazole Sodium Iv 40 Mg Vial IV PUSH 20 mg Q12HR SONIA Administration Polyethylene Glycol 17 gm 09/30/24 09:00 09/30/24 16:17 Polyethylene Glycol 3350 17 Gm Powd.Pack PO 17 gm BID SONIA Administration Sertraline HCl 50 mg 09/29/24 09:00 09/30/24 09:06 Sertraline Hcl 50 Mg Tablet PO 50 mg DAILY SONIA Administration Radiology Results: ITS Impressions Abdomen/Pelvis CT 09/26/24 20:50 IMPRESSION: Small bilateral pleural effusions. Chronic intra and extra hepatic bile duct dilation. Mid small bowel obstruction, transition point may represent an area of adhesion or short segment infectious, inflammatory, or ischemic colitis. Mild left hydronephrosis and urothelial enhancement may represent ascending infection/pyelitis. Cystitis. Proctitis. Small Bowel X-Ray 09/29/24 12:13 IMPRESSION: 1. Persistent mildly dilated loops of small bowel but without discrete transition point and with normal small bowel transit time consistent with resolving versus partial small bowel obstruction. Abdomen X-Ray 10/01/24 06:49 Impression: NG tube in place with relatively nonspecific bowel gas pattern. Oral contrast present in large bowel. Labs Labs: Laboratory Results - last 24 hr 10/01/24 05:17 WBC 5.1 RBC 3.29 L Hgb 9.6 L Hct 30.7 L MCV 93.3 MCH 29.2 MCHC 31.3 L RDW 15.6 H Plt Count 201 MPV 9.4 Immature Gran % (Auto) 1.2 H Neut % (Auto) 74.7 H Lymph % (Auto) 13.3 L [place] % (Auto) 9.8 H Eos % (Auto) 0.2 Baso % (Auto) 0.8 Lymph # (Auto) 0.68 L [place] # (Auto) 0.5 Eos # (Auto) 0.0 Baso # (Auto) 0.0 Abs Immat Gran (auto) 0.06 H Absolute Neuts (auto) 3.8 Absolute Nucleated RBC 0.000 Nucleated RBC % 0.0 Sodium 141 Potassium 3.4 Chloride 115 H Carbon Dioxide 13 L Anion Gap 13 H BUN 10 Creatinine 0.91 Estim Creat Clear Calc 48 Estimated GFR > 60 Glucose 84 Calcium 8.9 Magnesium 1.9 Total Bilirubin 0.7 AST 18 ALT 9 Alkaline Phosphatase 78 Total Protein 6.0 L Albumin 3.2 L Imaging Attestation: I personally reviewed and interpreted this imaging study as follows: (Plain film from today) My impression: Less contrast in the colon but still quite a bit of stool throughout the colon. No sign of small-bowel obstruction Radiologist's impression: Nonspecific bowel gas pattern, contrast in colon.
[2024-10-01 07:45] VITALS: BP 140/81; PULSE 118; RESP 16; TEMP 36.6; O2SAT 99
--- NOTE | 2024-10-01 08:33 | P.PNIM_ITS ---
Progress Note: A&P Assessment and Plan (1) Small bowel obstruction: Code(s): K56.609 - Unspecified intestinal obstruction, unspecified as to partial versus complete obstruction Status: Acute (2) Acute renal failure: Qualifiers: Acute renal failure type: unspecified Qualified Code(s): N17.9 - Acute kidney failure, unspecified Code(s): N17.9 - Acute kidney failure, unspecified Status: Acute (3) Catheter-associated urinary tract infection: Qualifiers: Encounter type: initial encounter Indwelling urinary catheter type: indwelling urethral catheter Qualified Code(s): T83.511A - Infection and inflammatory reaction due to indwelling urethral catheter, initial encounter; N39.0 - Urinary tract infection, site not specified Code(s): T83.511A - Infection and inflammatory reaction due to indwelling urethral catheter, initial encounter; N39.0 - Urinary tract infection, site not specified Status: Acute Plan Patsy Hugo is a 64-year-old female with a medical history significant for dementia, sedentary status, pressure ulcers around the sacrum, constipation, depression, GERD, dyslipidemia, chronic indwelling White catheter A resident of [facility], she was recently evaluated and managed for sepsis, fecal impaction an SBO (09/16-02/07) and discharged . staff were concerned about abdominal pain with nausea and vomiting; symptoms aggravated by meals/fluids, alleviated by fasting; associated with some anxiety and restlessness. # Small bowel obstruction and fecal impaction CT scan also shows a large amount of stool in her right colon, which could be contributing to or causing this issue. Hypaque enema done Pulled NG tube out overnight and replaced. KUB Findings: Large amount of retained fecal material in the right colon. There is dilated small bowel throughout the abdomen, consistent with obstruction. There is an IVC filter present, position unchanged. No abnormal calcifications. There is moderate lumbar spondylosis with levoscoliosis. # UTI (urinary tract infection): Urine culture grew pseudomonas aeruginosa. Sensitivities to all abx Switch from Cefepime 2 gram IVPB q 12. Do Levaquin 500 mg IV daily # Constipation AND FECAL IMPACTION: continue with NG tube decompression and bowel rest now and continue IV fluids. Hypaque enema PRN # Hypertension: Blood pressure is well control # Hypokalemia: Potassium Chloride 40 meq IVPB PRN to keep K wnl # Hypomagnesemia: corrected Metabolic acidosis switch to bicarb gtt anemia: no signs of bleeding. transfusion to keep Hb > 7. H&H remained stable . needed transfusion last admission. bilateral hydronephrosis due to mass effect on distal ureter by fecal impaction. Recheck ultrasound with mild persistent right hydronephrosis. fu with urology as op basis. this time ct with left mild hydronephrosis Chronic White catheter Neurogenic bladder History of ulcerative colitis GERD Hypertension Hyperlipidemia History of DVT Chronic anemia Dementia DVT Prophylaxis: heparin sq Code Status: Full code Subjective Date/time seen: 10/01/24 08:33 Interval history: Patient seen earlier. Denies any complaints. Reports abdominal pain is improved. NG tube has been removed and started on oral diet. Later in the afternoon in she had seizure episode involving right side of her body Review of Systems Review of Systems: ROS unobtainable: Yes unobtainable due to medical condition Exam Narrative: GENERAL: Pleasant, in no acute distress. Well-nourished. - EYES: EOMI. Anicteric. - HENT: Moist mucous membranes. - LUNGS: Clear to auscultation bilateral ly, no wheezing, rhonchi, or rales. - CARDIOVASCULAR: Regular rate and rhyth m. No murmur. No JVD. - ABDOMEN: Soft, non-tender and non-dist ended. No palpable masses. - EXTREMITIES: No edema. Peripheral puls es 2+. Non-tender. - NEUROLOGIC: No focal neurological defi cits. CN II-XII grossly intact. - PSYCHIATRIC: Awake, Alert and oriented x 3. Appropriate mood and affect. - SKIN: No rashes or lesions. Warm. - LYMPH: No cervical lymphadenopathy. Objective Data Vital Signs Vital Signs: Vital Signs - 24 hr 09/30/24 12:00 09/30/24 16:00 09/30/24 20:00 Temperature 98.7 F 99.1 F 97.7 F Pulse Rate 105 H 119 H 112 H Respiratory Rate 14 14 17 Blood Pressure 146/92 H 149/90 H 148/84 H Pulse Oximetry 98 99 98 Oxygen Delivery 09/30/24 20:30 09/30/24 23:32 10/01/24 05:00 Temperature 97.6 F 98.2 F Pulse Rate 106 H 113 H Respiratory Rate 17 18 Blood Pressure 151/77 H 156/87 H Pulse Oximetry 96 97 Oxygen Delivery Room Air Intake/Output Intake/Output: Intake & Output 09/28/24 09/29/24 09/30/24 10/01/24 23:59 23:59 23:59 23:59 Intake Total 2100 1891.7 1100 943.3 Output Total 2950 3900 3250 3550 [facility] -850 -2008.3 -2150 -2606.7 Meds/Results Medications: Active Medications Generic Name Dose Route Start Last Admin Trade Name Freq PRN Reason Stop Dose Admin Acetaminophen 650 mg 09/27/24 05:03 09/30/24 20:37 Acetaminophen 325 Mg Tablet FEED TUBE 650 mg Q4H PRN Administration Mild Pain (1-3) or Fever Heparin Sodium (Porcine) 5,000 units 09/27/24 09:00 09/30/24 20:38 Heparin Sodium 5,000 Units/Ml Vial SUB-Q 5,000 units Q12HR SONIA Administration Sodium Chloride 1,000 mls @ 100 mls/hr 09/26/24 22:25 10/01/24 00:23 Normal Saline Iv IV CONT 100 mls/hr .Q10H SONIA Administration Levofloxacin/Dextrose 500 mg in 100 mls @ 100 mls/hr 09/30/24 21:00 09/30/24 22:24 Levaquin 500 Mg/D5w 100 Ml IVPB Infused HS SONIA Infusion Melatonin 5 mg 09/27/24 05:03 09/30/24 20:38 Melatonin 5 Mg Tablet PO 5 mg HS PRN Administration Insomnia Morphine Sulfate 2 mg 09/26/24 22:23 Morphine Sulfate (*Crx) 2 Mg/Ml Inj IV PUSH Q2H PRN Pain Rated 7-10 Ondansetron HCl 4 mg 09/26/24 22:23 09/30/24 14:57 Ondansetron Inj 4 Mg/2 Ml Vial IV PUSH 4 mg Q4H PRN Administration Nausea Pantoprazole Sodium 20 mg 09/27/24 09:00 09/30/24 20:38 Pantoprazole Sodium Iv 40 Mg Vial IV PUSH 20 mg Q12HR SONIA Administration Polyethylene Glycol 17 gm 09/30/24 09:00 09/30/24 16:17 Polyethylene Glycol 3350 17 Gm Powd.Pack PO 17 gm BID SONIA Administration Sertraline HCl 50 mg 09/29/24 09:00 09/30/24 09:06 Sertraline Hcl 50 Mg Tablet PO 50 mg DAILY SONIA Administration Radiology Results: ITS Impressions Abdomen/Pelvis CT 09/26/24 20:50 IMPRESSION: Small bilateral pleural effusions. Chronic intra and extra hepatic bile duct dilation. Mid small bowel obstruction, transition point may represent an area of adhesion or short segment infectious, inflammatory, or ischemic colitis. Mild left hydronephrosis and urothelial enhancement may represent ascending infection/pyelitis. Cystitis. Proctitis. Small Bowel X-Ray 09/29/24 12:13 IMPRESSION: 1. Persistent mildly dilated loops of small bowel but without discrete transition point and with normal small bowel transit time consistent with resolving versus partial small bowel obstruction. Abdomen X-Ray 10/01/24 06:49 Impression: NG tube in place with relatively nonspecific bowel gas pattern. Oral contrast present in large bowel. Labs Labs: Laboratory Results - last 24 hr 10/01/24 05:17 WBC 5.1 RBC 3.29 L Hgb 9.6 L Hct 30.7 L MCV 93.3 MCH 29.2 MCHC 31.3 L RDW 15.6 H Plt Count 201 MPV 9.4 Immature Gran % (Auto) 1.2 H Neut % (Auto) 74.7 H Lymph % (Auto) 13.3 L [place] % (Auto) 9.8 H Eos % (Auto) 0.2 Baso % (Auto) 0.8 Lymph # (Auto) 0.68 L [place] # (Auto) 0.5 Eos # (Auto) 0.0 Baso # (Auto) 0.0 Abs Immat Gran (auto) 0.06 H Absolute Neuts (auto) 3.8 Absolute Nucleated RBC 0.000 Nucleated RBC % 0.0 Sodium 141 Potassium 3.4 Chloride 115 H Carbon Dioxide 13 L Anion Gap 13 H BUN 10 Creatinine 0.91 Estim Creat Clear Calc 48 Estimated GFR > 60 Glucose 84 Calcium 8.9 Magnesium 1.9 Total Bilirubin 0.7 AST 18 ALT 9 Alkaline Phosphatase 78 Total Protein 6.0 L Albumin 3.2 L
[2024-10-01] MEDS: PANTOPRAZOLE SODIUM IV 40 MG VIAL 20 MG IV PUSH ×2 (08:58→21:24)
[2024-10-01] MEDS: SERTRALINE HCL 50 MG TABLET PO (08:58)
[2024-10-01] MEDS: HEPARIN SODIUM 5,000 UNITS/ML VIAL 5000 UNITS SUB-Q ×2 (08:58→21:24)
[2024-10-01] MEDS: polyethylene glycoL 3350 17 GM POWD.PACK PO (08:58)
[2024-10-01] MEDS: SODIUM BICARBONATE 8.4% 100 MEQ in DEXTROSE 5% 1,000 ML 1,000 ML 50 MEQ IV CONT (09:29)
--- NOTE | 2024-10-01 09:33 | WPDGICN ---
Assessment and Plan Assessment and plan (1) Constipation: Qualifiers: Constipation type: chronic idiopathic constipation Qualified Code(s): K59.04 - Chronic idiopathic constipation Code(s): K59.00 - Constipation, unspecified Status: Acute (2) Small bowel obstruction: Code(s): K56.609 - Unspecified intestinal obstruction, unspecified as to partial versus complete obstruction Status: Acute (3) Chronic indwelling White catheter: Code(s): Z97.8 - Presence of other specified devices Status: Acute (4) Chronic anemia: Code(s): D64.9 - Anemia, unspecified Status: Chronic Plan 1. Chronic constipation/SBO: Colonoscopy Hx unknown. Records show Hx of Ulcerative Colitis and Hx of prior bowel resection, when and why surgery was done is unknown as patient was unable to provide details. Patient recently hospitalized at the beginning of the month for fecal impaction and bowel obstruction. CT on admission showed multiple loops of dilated proximal and mid small bowel. Transition point in the mid abdomen (axial 104/196, coronal 49/104), in an area of short segment small bowel wall edema. Normal large bowel.Interval disimpaction. Persistent rectal wall thickening. Small bowel Xray persistent mildly dilated loops of small bowel but without discrete transition point and with normal small bowel transit time consistent with resolving versus partial small bowel obstruction. Patient received soap suds enema in ER which was followed by a BM. Per RN the patient had a large BM yesterday evening. No BM today. Patient unable to say if she is passing gas. NG tube removed this morning and patient tolerating well and tolerating liquid diet and requesting diet advancement. Surgery on case on no surgical intervention recommended. Prior to admission patient was on Miralax daily, docusate 100 mg BID and lactulose as needed. No known use of pain medications RN CARDIOVASCULAR ICU. Patient with neurogenic bladder and indwelling cath. Patient will need to start a more aggressive bowel regimen Lactulose daily, Miralax daily and docusate BID that should be continued outpatient. Hold lactulose if diarrhea occurs avoid opioids given unclear Hx of IBD, will check calprotectin check thyroid function plan for colonoscopy Friday if bowel frequency does not improve of if calprotectin is elevated 2. Chronic anemia: Patient with chronic anemia, etiology likely multifactorial. Hgb averages around 7.5-9. Today Hgb 10, Hct 31, MCV 93 and platelets 201. No signs of active GI bleeding. Currently on heparin. No ASA or anticoags RN CARDIOVASCULAR ICU. Primary care team to continue monitoring and transfuse as needed to keep Hgb >7 Thank you very much for allowing me to share in the care of this very nice patient. This report may have been done utilizing a voice recognition system. Attempts have been made to correct errors. However, there may be uncorrected grammatical, spelling, and recognition errors present. GI Consult Note Consult date/time: 10/01/24 09:33 HPI: Patsy Hugo is a 64-year-old female with a medical history significant for dementia, sedentary status, pressure ulcers around the sacrum, constipation, depression, GERD, dyslipidemia, chronic indwelling White catheter. GI has been consulted for severe constipation. A resident of [facility], she was recently evaluated and managed for sepsis, fecal impaction an SBO (09/16-02/07) and discharged after blood transfusion, IV antibiotic therapy. She presented back to the ER 09/27/2024 for abdominal pain, nausea and vomiting and was admitted for SBO, cystitis and proctitis. Patient with dementia but was able to provide some subjective information but limited. Patient with a Hx of colon resection in the past but when that was done is unknown. Chart lists prior diagnosed of Ulcerative Colitis but patient could not confirm this diagnosis. NG tube was removed this morning and patient tolerating liquid diet and requesting to advance diet. Per RN, patient had a large BM yesterday evening which was her second BM since enema was given. She denies abdominal pain, nausea, vomiting, swallowing difficulty, reflux, appetite loss, weight loss, rectal pain, blood in stool. Prior to admission patient was on Miralax daily, lactulose PRN and docusate 100 mg BID chronically. Patient is bedbound with sacral ulcer and contractures of the legs. Family medical Hx unknown. ENDOSCOPY HISTORY: Colonoscopy and EGD Hx unknown LABS AND STOOL STUDIES: Labs 10/01/2024 and labs from prior admission earlier this month Sodium 141, potassium 3.4, BUN 10, creatinine 0.91, GFR >60 WBC 5, Hgb 10, Hct 31, MCV 93, platelets 201, INR 1.1 Total bilirubin 0.7, AST 18, ALT 9, Alkaline Phos 78, albumin 3.2 Lipase 147, procalcitonin 0.3 IMAGING: Abdominal x-ray 10/01/2024: Impression: NG tube in place with relatively nonspecific bowel gas pattern. Oral contrast present in large bowel. Abdominal x-ray 09/30/2024: Partial small bowel obstruction is a potential consideration Small-bowel x-ray 09/27/2024: IMPRESSION: 1. Persistent mildly dilated loops of small bowel but without discrete transition point and with normal small bowel transit time consistent with resolving versus partial small bowel obstruction. CT abd/pelvis w/contrast 09/26/2024: FINDINGS: Motion limited examination. Lower thorax: Bibasilar scar/atelectasis. Small bilateral pleural effusions. Liver: Normal. Biliary/Gallbladder: Gallstones. No inflammatory change. Stable intra and extrahepatic bile duct dilation. Pancreas: No mass or duct dilation. Spleen: Normal. Adrenals:No mass. Kidneys: Bilateral renal cortical thinning. Mild left hydronephrosis with urothelial enhancement. GI tract: Multiple loops of dilated proximal and mid small bowel. Transition point in the mid abdomen (axial 104/196, coronal 49/104), in an area of short segment small bowel wall edema. Normal large bowel. Normal appendix. Mesentery/Peritoneum: No ascites, mass, or free air. Retroperitoneum: No mass. Atherosclerotic calcifications of intra-abdominal arterial vessels. IVC filter. Pelvis: Interval disimpaction. Persistent rectal wall thickening. The urinary bladder is decompressed by White catheter, with the suggestion of urinary bladder wall edema and inflammatory change. Soft Tissues: Soft tissues and body wall unremarkable. Bones: No acute osseous finding. IMPRESSION: Small bilateral pleural effusions. Chronic intra and extra hepatic bile duct dilation. Mid small bowel obstruction, transition point may represent an area of adhesion or short segment infectious, inflammatory, or ischemic colitis. Mild left hydronephrosis and urothelial enhancement may represent ascending infection/pyelitis. Cystitis. Proctitis. CT abd/pelvis w/contrast 09/16/2024: IMPRESSION: High-grade bowel obstruction secondary to fecal impaction with mass effect on the distal ureters causing bilateral hydroureteronephrosis. Review of Systems Review of Systems: ROS unobtainable: Yes unobtainable due to medical condition and unobtainable due to mental status Gastrointestinal: Gastrointestinal: Reports as per [facility] Past Medical History Medical History Presence of IVC filter Hypertension Neurogenic bladder Deep venous thrombosis Coronary artery disease Poorly documented and patient denies. Anxiety Chronic anemia Arthritis Gastroesophageal reflux disease Ulcerative colitis Hyperlipidemia Dementia Chronic indwelling White catheter Surgical History Surgical History History of colon resection Family History Family History Other Family history unknown Social History Social History Social History: Surrogate decision maker: Amanda Parker, sibling. Code status: Full code. Smoking status: Unknown if ever smoked Alcohol intake: never Substance use: never Do You Feel Safe in your Home?: Yes Lack of Transportation: No Lack of Food: Never True Current Housing: I Have Housing Concerned About Future Housing: No Difficulty Paying Gas/Electric Bills: No Difficulty Paying for Meds: No Currently Unemployed: No Education: High School Diploma/GED Difficulty w/ Childcare or Family Care: No Additional living arrangements comments: The patient is a resident at [facility]. Additional occupation/education comments: Disabled. Spiritual care concerns: No Meds Home Medications and Allergies Home Medications ?Medication ?Instructions ?Recorded ?Confirmed ?Type hydroxyzine pamoate 25 mg capsule 25 mg PO BID 03/07/21 09/27/24 History lactulose 10 gram/15 mL oral 10 g PO TID PRN Constipation 03/07/21 09/27/24 History solution mirtazapine 15 mg tablet 15 mg PO HS 03/07/21 09/27/24 History montelukast 10 mg tablet 10 mg PO DAILY 03/07/21 09/27/24 History pantoprazole 40 mg tablet,delayed 40 mg PO DAILY 03/07/21 09/27/24 History release sertraline 50 mg tablet 50 mg PO DAILY 03/07/21 09/27/24 History simvastatin 20 mg tablet 20 mg PO HS 03/07/21 09/27/24 History sucralfate 1 gram tablet 1 g PO BID 03/07/21 09/27/24 History Lactobacillus acidophilus 1 cap PO DAILY 03/08/21 09/27/24 History (Acidophilus capsule) acetaminophen 500 mg capsule 1,000 mg PO Q6H PRN Pain 03/08/21 09/27/24 History ascorbate calcium (vitamin C) 500 500 mg PO BID 03/08/21 09/27/24 History mg tablet ergocalciferol (vitamin D2) 25,000 50,000 unit PO WEEKLY 03/08/21 09/27/24 History unit capsule ferrous sulfate 325 mg (65 mg 325 mg PO BID 03/08/21 09/27/24 History iron) tablet (Iron (ferrous sulfate)) multivitamin with minerals (Daily 1 tablet PO DAILY 03/08/21 09/27/24 History Multivitamin-Minerals tablet) potassium chloride 10 mEq 10 meq PO BID 09/16/24 09/27/24 History tablet,extended release amoxicillin 875 mg-potassium 1 tablet PO Q12H #6 tabs 09/21/24 09/27/24 Rx clavulanate 125 mg tablet docusate sodium 100 mg capsule 100 mg PO BID constipation #60 09/21/24 09/27/24 Rx caps polyethylene glycol 3350 17 gram 17 g PO QAM #30 ea 09/21/24 09/27/24 Rx oral powder packet (Miralax) ergocalciferol (vitamin D2) 50 mcg 100 mcg PO DAILY 09/27/24 09/27/24 History (2,000 unit) tablet Allergies Allergy/AdvReac Type Severity Reaction Status Date / Time lorazepam Allergy Unknown Verified 03/07/21 14:22 Vital Signs Vital Signs - 24 hr 09/30/24 12:00 09/30/24 16:00 09/30/24 20:00 Temperature 98.7 F 99.1 F 97.7 F Pulse Rate 105 H 119 H 112 H Respiratory Rate 14 14 17 Blood Pressure 146/92 H 149/90 H 148/84 H Pulse Oximetry 98 99 98 Oxygen Delivery 09/30/24 20:30 09/30/24 23:32 10/01/24 05:00 Temperature 97.6 F 98.2 F Pulse Rate 106 H 113 H Respiratory Rate 17 18 Blood Pressure 151/77 H 156/87 H Pulse Oximetry 96 97 Oxygen Delivery Room Air 10/01/24 07:45 Temperature 97.8 F Pulse Rate 118 H Respiratory Rate 16 Blood Pressure 140/81 Pulse Oximetry 99 Oxygen Delivery Exam Const: General: comfortable and no acute distress HENMT: Face/Nose/Sinus: Normal nares present Mouth: Yes moist mucous membranes Eyes: Sclera: sclerae normal Pupils: Equal, round and reactive pupils present Neck: Thyroid: thyroid normal Resp: Effort & Inspection: normal respiratory effort Auscultation: clear to auscultation bilaterally Cardio: Rate: regular rate Rhythm: regular rhythm GI: GI Palp: Yes Soft to palpation, No Firmness to palpation present (GI), No Tenderness to palpation present (GI) and No Guarding due to palpation present (GI) Auscultation: normal bowel sounds Skin: Wounds: wounds noted Extrem: Other: leg contractures Psych: Affect: normal affect Results Labs 10/01/24 05:17 10/01/24 05:17 Labs: Short CBC 10/01/24 Range/Units 05:17 WBC 5.1 (4.5-10.0) K/mm3 Hgb 9.6 L (12.0-15.0) g/dL Hct 30.7 L (37.0-47.0) % Plt Count 201 (150-375) k/mm3 BMP 10/01/24 05:17 Sodium 141 Potassium 3.4 Chloride 115 H Carbon Dioxide 13 L BUN 10 Creatinine 0.91 Glucose 84 Calcium 8.9 Liver Function 10/01/24 Range/Units 05:17 Total Bilirubin 0.7 (0.2-1.3) mg/dL AST 18 (14-36) U/L ALT 9 (6-35) U/L Alkaline Phosphatase 78 (38-126) U/L Albumin 3.2 L (3.5-5.1) g/dL
[2024-10-01] MEDS: LACTULOSE 20 GM/30 ML UDC PO (11:10)
[2024-10-01] MEDS: ACETAMINOPHEN 325 MG TABLET 650 MG FEED TUBE (11:11)
--- NOTE | 2024-10-01 11:34 | PCNFU ---
Nutrition Follow-Up Complete: 1. Inadequate oral intake related to small bowel obstruction as evidenced by NPO day 3 2. Increased protein energy intake related to wound healing as evidenced by deep tissue pressure injury to buttock goal: Advance diet as medically able Address nutrition needs when diet advanced Patient is progressing towards goal. We will continue current goal. Pt current nutrition is Full liquids. Nutrition recommendation: Darrell BID Last recorded weight is 56.7 kg, stable Bowel Motility:+BM reported 10/01 Labs Reviewed: Alb 3.2, Hct 30.7, Hgb 9.6 Meds Noted: Heparin, Lactulose, Miralax, Colace, Protonix Skin: Deep Tissue-left buttocks Additional Notes: Diet order has advanced to full liquids, Darrell BID recommended for wound healing. Agree with diet orders. Monitoring intakes, weights, labs, diet advancement, skin, plan of care Follow up in 3 days
[2024-10-01 11:40] LABS: T4 Thyroxine 5.36 ug/dL (5.53-11.0)
[2024-10-01 12:20] VITALS: BP 153/106; PULSE 127; RESP 20; TEMP 36.8; O2SAT 97
--- NOTE | 2024-10-01 13:17 | ECG_ITS ---
Test Date: 2024-10-01 13:26:43 Measurements Intervals [place] Rate: 152 P: 42 ID: 100 QRS: 20 QRSD: 96 T: 0 QT: 198 QTc: 315 Interpretive Statements ATRIAL FLUTTER/TACHYCARDIA WITH RAPID VENTRICULAR RESPONSE EARLY PRECORDIAL R/S TRANSITION NONSPECIFIC ST & T-WAVE ABNORMALITY- DIFFUSE LEADS BASELINE WANDER- II, III, AVF, V1-V6 ABNORMAL ECG Compared to ECG 09/26/2024 22:21:19 SINUS TACHYCARDIA NO LONGER PRESENT Electronically Signed On 10-01-2024 13:33:06 CDT by Loki Chacon D.O.
[2024-10-01] MEDS: LORazepam INJ (*CRX) 2 MG/ML VIAL IV PUSH (13:22)
[2024-10-01] MEDS: levETIRAcetam 1000MG/NACL100ML 1,000 MG/100 ML BAG 400 MG IVPB (13:31)
[2024-10-01 13:35] VITALS: BP 154/89; PULSE 157; RESP 12; O2SAT 95
[2024-10-01] MEDS: LORazepam INJ (*CRX) 2 MG/ML VIAL (13:38)
[2024-10-01 13:52] LABS: Basophils Absolute Auto 0.1 K/mm3 (0.0-0.1); Basophils Percent Auto 0.9 % (0.2-1.2); Eosinophils Percent Auto 0.1 % (0-4.4); Hematocrit 31.8 % (37.0-47.0); Immature Granulocyte Absolute 0.05 K/mm3 (0.00-0.031); Immature Granulocyte Percent A 0.7 % (0-0.5); Lymphocytes Absolute Auto 0.51 K/mm3 (0.9-3.2); Lymphocytes Percent Auto 7.6 % (18.3-44.2); Mean Corpuscular HGB Conc 31.4 g/dl (32-36); Mean Corpuscular Volume 92.2 fl (80-100); Mean Platelet Volume 9.4 fl (7.4-10.4); Monocytes Absolute Auto 0.6 K/mm3 (0.1-0.6); Monocytes Percent Auto 8.9 % (2.6-8.5); Neutrophils Absolute Auto 5.5 K/mm3 (1.3-6.7); Neutrophils Percent Auto 81.8 % (45.5-73.1); Platelet Count Result 240 k/mm3 (150-375); Red Blood Count 3.45 M/mm3 (4.2-5.4); Red Cell Distribution Width 15.9 % (11.5-14.5); White Blood Count 6.7 K/mm3 (4.5-10.0)
[2024-10-01 14:02] LABS: Lactic Acid Reflex 1.4 mmol/L (0.7-2.0)
[2024-10-01 14:04] LABS: Alanine Aminotransferase 12 U/L (6-35); Albumin Level 3.3 g/dL (3.5-5.1); Alkaline Phosphatase 76 U/L (38-126); Anion Gap 14 mmol/L (4-12); Aspartate Amino Transferase 21 U/L (14-36); Bilirubin,Total 0.6 mg/dL (0.2-1.3); Blood Urea Nitrogen 10 mg/dL (7-17); Calcium 8.7 mg/dL (8.4-10.2); Carbon Dioxide 13 mmol/L (22-30); Chloride 113 mmol/L (98-107); Estimated CRCL calculation 47 ml/min; Estimated Glomerular Filt Rate 60; Glucose 139 mg/dL (65-110); Sodium 140 mmol/L (137-145)
[2024-10-01] MEDS: POTASSIUM CHLORIDE INJ 40 MEQ in SODIUM CHLORIDE 0.9% IV 500 ML 130 MEQ IVPB (14:34)
[2024-10-01 14:46] LABS: Glucose Point of Care 158 mg/dl (65-105)
[2024-10-01 16:00] VITALS: BP 127/63; PULSE 95; RESP 22; TEMP 36.7; O2SAT 98
[2024-10-01 20:00] VITALS: BP 137/75; PULSE 101; PULSE 88; RESP 20; TEMP 36.7; O2SAT 99
[2024-10-01] MEDS: levETIRAcetam IV 750 MG in DEXTROSE 5% 100 ML 430 MG IVPB (21:24)
[2024-10-01] MEDS: levoFLOXacin 500 MG/D5W 100 ML 500 MG/100 ML BAG 100 MG IVPB (21:55)
[2024-10-02] VITALS (8 sets, daily range): BP systolic 119–147; BP diastolic 56–81; PULSE 76–98; RESP 16–18; TEMP 36.4–37.8; O2SAT 96–100
[2024-10-02 05:14] LABS: Basophils Absolute Auto 0.1 K/mm3 (0.0-0.1); Basophils Percent Auto 1.3 % (0.2-1.2); Eosinophils Absolute Auto 0.1 K/mm3 (0-0.3); Eosinophils Percent Auto 1.8 % (0-4.4); Hematocrit 25.1 % (37.0-47.0); Hemoglobin 7.7 g/dL (12.0-15.0); Immature Granulocyte Absolute 0.06 K/mm3 (0.00-0.031); Immature Granulocyte Percent A 1.6 % (0-0.5); Lymphocytes Absolute Auto 0.53 K/mm3 (0.9-3.2); Lymphocytes Percent Auto 13.8 % (18.3-44.2); Mean Corpuscular HGB Conc 30.7 g/dl (32-36); Mean Corpuscular Hemoglobin 29.1 pg (26-34); Mean Corpuscular Volume 94.7 fl (80-100); Mean Platelet Volume 9.9 fl (7.4-10.4); Monocytes Absolute Auto 0.5 K/mm3 (0.1-0.6); Monocytes Percent Auto 12.8 % (2.6-8.5); Neutrophils Absolute Auto 2.6 K/mm3 (1.3-6.7); Neutrophils Percent Auto 68.7 % (45.5-73.1); Platelet Count Result 181 k/mm3 (150-375); Red Blood Count 2.65 M/mm3 (4.2-5.4); Red Cell Distribution Width 16.1 % (11.5-14.5); White Blood Count 3.8 K/mm3 (4.5-10.0)
[2024-10-02 05:20] LABS: Alanine Aminotransferase 8 U/L (6-35); Albumin Level 2.5 g/dL (3.5-5.1); Alkaline Phosphatase 60 U/L (38-126); Anion Gap 6 mmol/L (4-12); Aspartate Amino Transferase 17 U/L (14-36); Bilirubin,Total 0.3 mg/dL (0.2-1.3); Blood Urea Nitrogen 9 mg/dL (7-17); Calcium 8.4 mg/dL (8.4-10.2); Carbon Dioxide 21 mmol/L (22-30); Chloride 112 mmol/L (98-107); Estimated CRCL calculation 50 ml/min; Estimated Glomerular Filt Rate > 60; Glucose 88 mg/dL (65-110); Magnesium 1.7 mg/dL (1.6-2.3); Potassium 3.1 mmol/L (3.4-5.0); Sodium 139 mmol/L (137-145)
[2024-10-02] MEDS: levETIRAcetam IV 750 MG in DEXTROSE 5% 100 ML 430 MG IVPB ×2 (08:21→20:39)
[2024-10-02] MEDS: HEPARIN SODIUM 5,000 UNITS/ML VIAL 5000 UNITS SUB-Q ×2 (08:21→20:38)
[2024-10-02] MEDS: PANTOPRAZOLE SODIUM IV 40 MG VIAL 20 MG IV PUSH ×2 (08:21→20:39)
[2024-10-02] MEDS: POTASSIUM CHLORIDE INJ 40 MEQ in SODIUM CHLORIDE 0.9% IV 500 ML 130 MEQ IVPB (09:37)
--- NOTE | 2024-10-02 11:06 | P.PNGS_ITS ---
Progress Note: A&P Assessment and Plan (1) Small bowel obstruction: Code(s): K56.609 - Unspecified intestinal obstruction, unspecified as to partial versus complete obstruction Status: Acute Assessment and Plan: * Resolved. Currently NPO per hospitalist orders. Okay to resume diet from surgical standpoint. (2) Constipation: Qualifiers: Constipation type: chronic idiopathic constipation Qualified Code(s): K59.04 - Chronic idiopathic constipation Code(s): K59.00 - Constipation, unspecified Status: Acute Assessment and Plan: Patient takes many medications chronically for constipation including lactulose, MiraLax, Colace. I think this is the problem at this point. Patient has likely had her previous admission and this admission due to severe constipation and retained stool. Will ask GI to see for possible colonoscopy and treatment with medication. (3) Chronic indwelling White catheter: Code(s): Z97.8 - Presence of other specified devices Status: Acute (4) Chronic anemia: Code(s): D64.9 - Anemia, unspecified Status: Chronic Assessment and Plan: Stable (5) Pressure ulcer of buttock: Qualifiers: Pressure injury stage: unstageable Laterality: unspecified laterality Qualified Code(s): L89.300 - Pressure ulcer of unspecified buttock, unstageable Code(s): L89.309 - Pressure ulcer of unspecified buttock, unspecified stage Status: Acute Assessment and Plan: Continue local wound care and frequent turning (6) Dementia: Code(s): F03.90 - Unspecified dementia, unspecified severity, without behavioral disturbance, psychotic disturbance, mood disturbance, and anxiety Status: Chronic (7) Presence of IVC filter: Code(s): Z95.828 - Presence of other vascular implants and grafts Status: Chronic Subjective Subjective Date/Time Seen: 10/02/24 11:06 Interval history: Bowels moving. No abdominal pain. No nausea or vomiting. Patient had seizure activity on 10/01/2024. Currently NPO per hospitalist orders. Exam GI: Inspection: non-distended GI Palp: Yes Soft to palpation, No Tenderness to palpation present (GI), No Guarding due to palpation present (GI) and No Rebound tenderness present Percussion: Yes normal to percussion Auscultation: normal bowel sounds Objective Data Vital Signs Vital Signs: Vital Signs - 24 hr 10/01/24 12:20 10/01/24 13:35 10/01/24 16:00 Temperature 98.3 F 98.1 F Pulse Rate 127 H 157 H 95 Respiratory Rate 20 12 22 H Blood Pressure 153/106 H 154/89 H 127/63 Pulse Oximetry 97 95 98 Oxygen Delivery Room Air 10/01/24 16:00 10/01/24 20:00 10/01/24 20:00 Temperature 98.0 F Pulse Rate 95 88 101 H Respiratory Rate 20 Blood Pressure 137/75 Pulse Oximetry 99 Oxygen Delivery 10/01/24 21:14 10/02/24 00:00 10/02/24 00:55 Temperature 98.2 F Pulse Rate 76 84 Respiratory Rate 18 Blood Pressure 141/81 H Pulse Oximetry 100 Oxygen Delivery Room Air 10/02/24 04:00 10/02/24 04:00 10/02/24 08:00 Temperature 97.5 F L 98.5 F Pulse Rate 77 94 91 Respiratory Rate 18 16 Blood Pressure 125/56 L 128/64 Pulse Oximetry 99 99 Oxygen Delivery Intake/Output Intake/Output: Intake & Output 09/29/24 09/30/24 10/01/24 10/02/24 23:59 23:59 23:59 23:59 Intake Total 1891.7 1100 1910.8 108 Output Total 3900 3250 4510 650 [facility]2008.3 -2150 -2599.2 -542 Meds/Results Medications: Active Medications Generic Name Dose Route Start Last Admin Trade Name Freq PRN Reason Stop Dose Admin Acetaminophen 650 mg 09/27/24 05:03 10/01/24 11:11 Acetaminophen 325 Mg Tablet FEED TUBE 650 mg Q4H PRN Administration Mild Pain (1-3) or Fever Docusate Sodium 100 mg 10/01/24 21:00 10/02/24 08:16 Docusate Sodium 100 Mg Capsule PO Not Given Q12HR SONIA Heparin Sodium (Porcine) 5,000 units 09/27/24 09:00 10/02/24 08:21 Heparin Sodium 5,000 Units/Ml Vial SUB-Q 5,000 units Q12HR SONIA Administration Levofloxacin/Dextrose 500 mg in 100 mls @ 100 mls/hr 09/30/24 21:00 10/01/24 22:55 Levaquin 500 Mg/D5w 100 Ml IVPB Infused HS SONIA Infusion Sodium Bicarbonate 100 meq/ 1,100 mls @ 50 mls/hr 10/01/24 09:00 10/01/24 09:29 Dextrose IV CONT 50 mls/hr .Q22H SONIA Administration Levetiracetam 750 mg/ Dextrose 107.5 mls @ 430 mls/hr 10/01/24 21:00 10/02/24 08:51 IVPB Infused Q12HR SONIA Infusion Potassium Chloride 40 meq/ 520 mls @ 130 mls/hr 10/02/24 09:15 10/02/24 09:37 Sodium Chloride IVPB 10/02/24 13:14 130 mls/hr ONCE ONE Administration Lactulose 20 gm 10/01/24 10:25 10/02/24 08:16 Lactulose 20 Gm/30 Ml Udc PO Not Given QAM SONIA Lorazepam 2 mg 10/01/24 14:15 Lorazepam Inj (*Crx) 2 Mg/Ml Vial IV PUSH Q6H PRN Seizures Melatonin 5 mg 09/27/24 05:03 09/30/24 20:38 Melatonin 5 Mg Tablet PO 5 mg HS PRN Administration Insomnia Morphine Sulfate 2 mg 09/26/24 22:23 Morphine Sulfate (*Crx) 2 Mg/Ml Inj IV PUSH Q2H PRN Pain Rated 7-10 Ondansetron HCl 4 mg 09/26/24 22:23 09/30/24 14:57 Ondansetron Inj 4 Mg/2 Ml Vial IV PUSH 4 mg Q4H PRN Administration Nausea Pantoprazole Sodium 20 mg 09/27/24 09:00 10/02/24 08:21 Pantoprazole Sodium Iv 40 Mg Vial IV PUSH 20 mg Q12HR SONIA Administration Polyethylene Glycol 17 gm 09/30/24 09:00 10/02/24 08:16 Polyethylene Glycol 3350 17 Gm Powd.Pack PO Not Given BID SONIA Polyethylene Glycol 17 gm 10/02/24 09:00 10/02/24 08:16 Polyethylene Glycol 3350 17 Gm Powd.Pack PO Not Given QAM SONIA Sertraline HCl 50 mg 09/29/24 09:00 10/02/24 08:16 Sertraline Hcl 50 Mg Tablet PO Not Given DAILY SONIA Radiology Results: ITS Impressions Abdomen/Pelvis CT 09/26/24 20:50 IMPRESSION: Small bilateral pleural effusions. Chronic intra and extra hepatic bile duct dilation. Mid small bowel obstruction, transition point may represent an area of adhesion or short segment infectious, inflammatory, or ischemic colitis. Mild left hydronephrosis and urothelial enhancement may represent ascending infection/pyelitis. Cystitis. Proctitis. Small Bowel X-Ray 09/29/24 12:13 IMPRESSION: 1. Persistent mildly dilated loops of small bowel but without discrete transition point and with normal small bowel transit time consistent with resolving versus partial small bowel obstruction. Abdomen X-Ray 10/01/24 06:49 Impression: NG tube in place with relatively nonspecific bowel gas pattern. Oral contrast present in large bowel. Chest X-Ray 10/01/24 13:48 IMPRESSION: 1: NO ACUTE CARDIOPULMONARY DISEASE. Head CT 10/01/24 14:04 Impression: No acute intracranial hemorrhage or suspicious mass effect. Labs Labs: Laboratory Results - last 24 hr 10/01/24 10/01/24 10/01/24 05:15 13:17 13:43 WBC 6.7 RBC 3.45 L Hgb 10.0 L Hct 31.8 L MCV 92.2 MCH 29.0 MCHC 31.4 L RDW 15.9 H Plt Count 240 MPV 9.4 Immature Gran % (Auto) 0.7 H Neut % (Auto) 81.8 H Lymph % (Auto) 7.6 L Baldwin % (Auto) 8.9 H Eos % (Auto) 0.1 Baso % (Auto) 0.9 Lymph # (Auto) 0.51 L Baldwin # (Auto) 0.6 Eos # (Auto) 0.0 Baso # (Auto) 0.1 Abs Immat Gran (auto) 0.05 H Absolute Neuts (auto) 5.5 Absolute Nucleated RBC 0.000 Nucleated RBC % 0.0 Sodium 140 Potassium 3.0 L Chloride 113 H Carbon Dioxide 13 L Anion Gap 14 H BUN 10 Creatinine 0.93 Estim Creat Clear Calc 47 Estimated GFR 60 Glucose 139 H POC Capillary Glucose 158 H Lactic Acid 1.4 Calcium 8.7 Magnesium Total Bilirubin 0.6 AST 21 ALT 12 Alkaline Phosphatase 76 Total Protein 6.0 L Albumin 3.3 L TSH 1.350 Thyroxine (T4) 5.36 L Prolactin 11.0 10/02/24 04:15 WBC 3.8 L RBC 2.65 L Hgb 7.7 L Hct 25.1 L MCV 94.7 MCH 29.1 MCHC 30.7 L RDW 16.1 H Plt Count 181 MPV 9.9 Immature Gran % (Auto) 1.6 H Neut % (Auto) 68.7 Lymph % (Auto) 13.8 L [place] % (Auto) 12.8 H Eos % (Auto) 1.8 Baso % (Auto) 1.3 H Lymph # (Auto) 0.53 L [place] # (Auto) 0.5 Eos # (Auto) 0.1 Baso # (Auto) 0.1 Abs Immat Gran (auto) 0.06 H Absolute Neuts (auto) 2.6 Absolute Nucleated RBC 0.000 Nucleated RBC % 0.0 Sodium 139 Potassium 3.1 L Chloride 112 H Carbon Dioxide 21 L Anion Gap 6 BUN 9 Creatinine 0.87 Estim Creat Clear Calc 50 Estimated GFR > 60 Glucose 88 POC Capillary Glucose Lactic Acid Calcium 8.4 Magnesium 1.7 Total Bilirubin 0.3 AST 17 ALT 8 Alkaline Phosphatase 60 Total Protein 5.0 L Albumin 2.5 L TSH Thyroxine (T4) Prolactin
--- NOTE | 2024-10-02 11:34 | P.CONNEU_ITS ---
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 Dementia with ventriculomegaly proportional to the degree of sulcal prominence and without evidence of any obvious tumor in the posterior fossa. 2. Ongoing multiple medical problems as outlined in addition to the flexion deformities because of the obvious neurological impairment for the rehab. 3. No surgical intervention is necessary for the ventriculomegaly and also no further diagnostic studies are necessary. Patient needs to be kept comfortable in regards to her general condition , if any further question arises please do not hesitate to contact me,thank you Consult date: 10/02/24 HPI: Patsy Hugo is a 64 year old female Has been admitted to the hospital through the emergency room with the complaints of abdominal pain with nausea and vomiting and with the information that patient recently in the hospital for small bowel obstruction and urinary tract infection. Patient had reportedly sees multiple bouts of vomiting. Has been receiving multiple medications which particularly included mirtazapine 15mg at night, sertraline 50mg daily, ferrous sulfate 325mg daily, potassium chloride 10mEq twice a day, simvastatin 20mg at night, and lactulose 10g p.o. 3 times a day on PRN basis. Reportedly patient is allergic to lorazepam. Patient does have ongoing history of IVC filter, deep vein thrombosis, hypertension, arthritis, ulcerative colitis, and chronic indwelling White scattered in addition to the ongoing history of dementia. Patient has also undergone colon resection and at present never alcohol intake or substance user. On initial exam in the emergency room pulse rate was 140 respiration 24 blood pressure 106/67, on the CT scan of the abdomen she was found to have evidence of bowel obstruction, with leukocytosis on the CBC, BMP normal and was admitted to the hospital with the diagnosis of a small-bowel obstruction with acute UTI. General surgery consultation was consistent with small-bowel obstruction, has had previous colon resection as per the GI note and was continued with the NG tube decompression for the ongoing a possibility of the bowel adhesions time to shoot the signs of obstruction, 1st seen by the cement truck driver with documentation of gradual improvement in the so-called GI situation but no surgical intervention was done. On most recent CBC she has hemoglobin of only 7.7 with normal platelet count, UA abnormal, see urology negative for the common viral infection, most recent CT scan of the head documented enlarged ventricles right more than the left proportionate to the degree of sulcal prominence without any mass and neurology consultation obtained for that reason. Review of Systems 2 Review of Systems: All systems reviewed & are unremarkable except as noted in HPI and below PMFSH Past Medical History Medical History Presence of IVC filter Hypertension Neurogenic bladder Deep venous thrombosis Coronary artery disease Poorly documented and patient denies. Anxiety Chronic anemia Arthritis Gastroesophageal reflux disease Ulcerative colitis Hyperlipidemia Dementia Chronic indwelling White catheter Surgical History Surgical History History of colon resection Family History Family History Other Family history unknown Social History Social History Social History: Surrogate decision maker: Amanda Keith, sibling. Code status: Full code. Smoking status: Unknown if ever smoked Alcohol intake: never Substance use: never Do You Feel Safe in your Home?: Yes Lack of Transportation: No Lack of Food: Never True Current Housing: I Have Housing Concerned About Future Housing: No Difficulty Paying Gas/Electric Bills: No Difficulty Paying for Meds: No Currently Unemployed: No Education: High School Diploma/GED Difficulty w/ Childcare or Family Care: No Additional living arrangements comments: The patient is a resident at [facility]. Additional occupation/education comments: Disabled. Spiritual care concerns: No Meds Home Medications and Allergies Home Medications ?Medication ?Instructions ?Recorded ?Confirmed ?Type hydroxyzine pamoate 25 mg capsule 25 mg PO BID 03/07/21 09/27/24 History lactulose 10 gram/15 mL oral 10 g PO TID PRN Constipation 03/07/21 09/27/24 History solution mirtazapine 15 mg tablet 15 mg PO HS 03/07/21 09/27/24 History montelukast 10 mg tablet 10 mg PO DAILY 03/07/21 09/27/24 History pantoprazole 40 mg tablet,delayed 40 mg PO DAILY 03/07/21 09/27/24 History release sertraline 50 mg tablet 50 mg PO DAILY 03/07/21 09/27/24 History simvastatin 20 mg tablet 20 mg PO HS 03/07/21 09/27/24 History sucralfate 1 gram tablet 1 g PO BID 03/07/21 09/27/24 History Lactobacillus acidophilus 1 cap PO DAILY 03/08/21 09/27/24 History (Acidophilus capsule) acetaminophen 500 mg capsule 1,000 mg PO Q6H PRN Pain 03/08/21 09/27/24 History ascorbate calcium (vitamin C) 500 500 mg PO BID 03/08/21 09/27/24 History mg tablet ergocalciferol (vitamin D2) 25,000 50,000 unit PO WEEKLY 03/08/21 09/27/24 History unit capsule ferrous sulfate 325 mg (65 mg 325 mg PO BID 03/08/21 09/27/24 History iron) tablet (Iron (ferrous sulfate)) multivitamin with minerals (Daily 1 tablet PO DAILY 03/08/21 09/27/24 History Multivitamin-Minerals tablet) potassium chloride 10 mEq 10 meq PO BID 09/16/24 09/27/24 History tablet,extended release amoxicillin 875 mg-potassium 1 tablet PO Q12H #6 tabs 09/21/24 09/27/24 Rx clavulanate 125 mg tablet docusate sodium 100 mg capsule 100 mg PO BID constipation #60 09/21/24 09/27/24 Rx caps polyethylene glycol 3350 17 gram 17 g PO QAM #30 ea 09/21/24 09/27/24 Rx oral powder packet (Miralax) ergocalciferol (vitamin D2) 50 mcg 100 mcg PO DAILY 09/27/24 09/27/24 History (2,000 unit) tablet Allergies Allergy/AdvReac Type Severity Reaction Status Date / Time lorazepam Allergy Unknown Verified 03/07/21 14:22 Vital Signs Vital Signs - 24 hr 10/01/24 12:20 10/01/24 13:35 10/01/24 16:00 Temperature 36.8 C 36.7 C Pulse Rate 127 H 157 H 95 Respiratory Rate 20 12 22 H Blood Pressure 153/106 H 154/89 H 127/63 Pulse Oximetry 97 95 98 Oxygen Delivery Room Air 10/01/24 16:00 10/01/24 20:00 10/01/24 20:00 Temperature 36.7 C Pulse Rate 95 88 101 H Respiratory Rate 20 Blood Pressure 137/75 Pulse Oximetry 99 Oxygen Delivery 10/01/24 21:14 10/02/24 00:00 10/02/24 00:55 Temperature 36.8 C Pulse Rate 76 84 Respiratory Rate 18 Blood Pressure 141/81 H Pulse Oximetry 100 Oxygen Delivery Room Air 10/02/24 04:00 10/02/24 04:00 10/02/24 08:00 Temperature 36.4 C L 36.9 C Pulse Rate 77 94 91 Respiratory Rate 18 16 Blood Pressure 125/56 L 128/64 Pulse Oximetry 99 99 Oxygen Delivery Exam 2 Narrative: On examination today she is laying in bed comfortably with both lower extremities flexed at the hip and the knees but even light touch to move her lower extremities she complains of pain and discomfort, she says I am disabled her speech was not dysarthric and she did not follow the verbal commands appropriately her head was normocephalic there was no bruit, ear nose throat examination was normal, neck was supple with restriction in the range of motion from side to side, heart regular number lungs with decreased breath sounds but no crepitations, abdomen soft but this time, neurological examination revealed her to be awake not very happy to be examined and complained of pain and discomfort in the movements of the upper and lower extremities with statement that I a.m. disabled. Pupils round regular feels the vision full to threat stimuli without any spontaneous nystagmus or on looking in the holes were drilled dilatation from side to side, facial sensation intact firs symmetrical and tongue and the oral cavity with no fasciculation, motor examination revealed her to have limited exam with flexion at each root of the both lower extremities at the hips and the knees and also keeping her head upper extremities to the chest reflexes are sluggish but symmetric and plantars are only questionable cerebellar examination could not be carried out. Results Labs 10/02/24 04:15 10/02/24 04:15 Labs: Short CBC 10/01/24 10/02/24 Range/Units 13:43 04:15 WBC 6.7 3.8 L (4.5-10.0) K/mm3 Hgb 10.0 L 7.7 L (12.0-15.0) g/dL Hct 31.8 L 25.1 L (37.0-47.0) % Plt Count 240 181 (150-375) k/mm3 BMP 10/01/24 10/02/24 13:43 04:15 Sodium 140 139 Potassium 3.0 L 3.1 L Chloride 113 H 112 H Carbon Dioxide 13 L 21 L BUN 10 9 Creatinine 0.93 0.87 Glucose 139 H 88 Calcium 8.7 8.4 Liver Function 10/01/24 10/02/24 Range/Units 13:43 04:15 Total Bilirubin 0.6 0.3 (0.2-1.3) mg/dL AST 21 17 (14-36) U/L ALT 12 8 (6-35) U/L Alkaline Phosphatase 76 60 (38-126) U/L Albumin 3.3 L 2.5 L (3.5-5.1) g/dL
[2024-10-02] MEDS: SODIUM BICARBONATE 8.4% 100 MEQ in DEXTROSE 5% 1,000 ML 1,000 ML 50 MEQ IV CONT (12:18)
--- NOTE | 2024-10-02 13:46 | WPDGIPROGNO ---
Progress Note: A&P Assessment and Plan (1) Fecal impaction: Code(s): K56.41 - Fecal impaction Status: Acute Assessment and Plan: probably colonoscopy on Friday to assess if impaction of colon no n/v on liquid diet surgery on board (2) Small bowel obstruction: Code(s): K56.609 - Unspecified intestinal obstruction, unspecified as to partial versus complete obstruction Status: Acute Assessment and Plan: resolved (3) Dementia: Code(s): F03.90 - Unspecified dementia, unspecified severity, without behavioral disturbance, psychotic disturbance, mood disturbance, and anxiety Status: Chronic Assessment and Plan: evaluated also by neurology (4) Cerebral ventriculomegaly due to brain atrophy: Code(s): G31.9 - Degenerative disease of nervous system, unspecified Status: Acute (5) Chronic anemia: Code(s): D64.9 - Anemia, unspecified Status: Chronic (6) UTI (urinary tract infection): Code(s): N39.0 - Urinary tract infection, site not specified Status: Acute Assessment and Plan: on abx Subjective Date/time seen: 10/02/24 13:46 Interval history: no new issues she has dementia, she seems comfortable Review of Systems Review of Systems: All systems reviewed & are unremarkable except as noted in HPI and below Exam Const: General: comfortable HENMT: Face/Nose/Sinus: Normal nares present Eyes: Sclera: sclerae normal Neck: Neck: supple Resp: Effort & Inspection: normal respiratory effort Cardio: Rate: regular rate GI: Inspection: non-distended GI Palp: Yes Soft to palpation, No Tenderness to palpation present (GI), No Guarding due to palpation present (GI) and No Rebound tenderness present Percussion: Yes normal to percussion Auscultation: normal bowel sounds Skin: General skin exam: normal color Neuro: Other: no obvious focal deficits she has advanced dementia Extrem: General: normal to inspection Psych: Other: unable to assess Objective Data Vital Signs Vital Signs: Vital Signs - 24 hr 10/01/24 16:00 10/01/24 16:00 10/01/24 20:00 Temperature 98.1 F 98.0 F Pulse Rate 95 95 88 Respiratory Rate 22 H 20 Blood Pressure 127/63 137/75 Pulse Oximetry 98 99 Oxygen Delivery 10/01/24 20:00 10/01/24 21:14 10/02/24 00:00 Temperature Pulse Rate 101 H 76 Respiratory Rate Blood Pressure Pulse Oximetry Oxygen Delivery Room Air 10/02/24 00:55 10/02/24 04:00 10/02/24 04:00 Temperature 98.2 F 97.5 F L Pulse Rate 84 77 94 Respiratory Rate 18 18 Blood Pressure 141/81 H 125/56 L Pulse Oximetry 100 99 Oxygen Delivery 10/02/24 08:00 10/02/24 08:00 10/02/24 11:54 Temperature 98.5 F 98.3 F Pulse Rate 91 87 98 Respiratory Rate 16 18 Blood Pressure 128/64 147/79 H Pulse Oximetry 99 100 Oxygen Delivery 10/02/24 12:00 Temperature Pulse Rate 87 Respiratory Rate Blood Pressure Pulse Oximetry Oxygen Delivery Intake/Output Intake/Output: Intake & Output 09/29/24 09/30/24 10/01/24 10/02/24 23:59 23:59 23:59 23:59 Intake Total 1891.7 1100 1910.8 1208 Output Total 3900 3250 4510 650 [facility] -2008.3 -2150 -2599.2 558 Meds/Results Medications: Active Medications Generic Name Dose Route Start Last Admin Trade Name Freq PRN Reason Stop Dose Admin Acetaminophen 650 mg 09/27/24 05:03 10/01/24 11:11 Acetaminophen 325 Mg Tablet FEED TUBE 650 mg Q4H PRN Administration Mild Pain (1-3) or Fever Docusate Sodium 100 mg 10/01/24 21:00 10/02/24 08:16 Docusate Sodium 100 Mg Capsule PO Not Given Q12HR [facility] Heparin Sodium (Porcine) 5,000 units 09/27/24 09:00 10/02/24 08:21 Heparin Sodium 5,000 Units/Ml Vial SUB-Q 5,000 units Q12HR SONIA Administration Levofloxacin/Dextrose 500 mg in 100 mls @ 100 mls/hr 09/30/24 21:00 10/01/24 22:55 Levaquin 500 Mg/D5w 100 Ml IVPB Infused HS SONIA Infusion Sodium Bicarbonate 100 meq/ 1,100 mls @ 50 mls/hr 10/01/24 09:00 10/02/24 12:18 Dextrose IV CONT 50 mls/hr .Q22H SONIA Administration Levetiracetam 750 mg/ Dextrose 107.5 mls @ 430 mls/hr 10/01/24 21:00 10/02/24 08:51 IVPB Infused Q12HR SONIA Infusion Lactulose 20 gm 10/01/24 10:25 10/02/24 08:16 Lactulose 20 Gm/30 Ml Udc PO Not Given QAM SONIA Lorazepam 2 mg 10/01/24 14:15 Lorazepam Inj (*Crx) 2 Mg/Ml Vial IV PUSH Q6H PRN Seizures Melatonin 5 mg 09/27/24 05:03 09/30/24 20:38 Melatonin 5 Mg Tablet PO 5 mg HS PRN Administration Insomnia Morphine Sulfate 2 mg 09/26/24 22:23 Morphine Sulfate (*Crx) 2 Mg/Ml Inj IV PUSH Q2H PRN Pain Rated 7-10 Ondansetron HCl 4 mg 09/26/24 22:23 09/30/24 14:57 Ondansetron Inj 4 Mg/2 Ml Vial IV PUSH 4 mg Q4H PRN Administration Nausea Pantoprazole Sodium 20 mg 09/27/24 09:00 10/02/24 08:21 Pantoprazole Sodium Iv 40 Mg Vial IV PUSH 20 mg Q12HR SONIA Administration Polyethylene Glycol 17 gm 09/30/24 09:00 10/02/24 08:16 Polyethylene Glycol 3350 17 Gm Powd.Pack PO Not Given BID SONIA Polyethylene Glycol 17 gm 10/02/24 09:00 10/02/24 08:16 Polyethylene Glycol 3350 17 Gm Powd.Pack PO Not Given QAM SONIA Sertraline HCl 50 mg 09/29/24 09:00 10/02/24 08:16 Sertraline Hcl 50 Mg Tablet PO Not Given DAILY [facility] Radiology Results: ITS Impressions Abdomen/Pelvis CT 09/26/24 20:50 IMPRESSION: Small bilateral pleural effusions. Chronic intra and extra hepatic bile duct dilation. Mid small bowel obstruction, transition point may represent an area of adhesion or short segment infectious, inflammatory, or ischemic colitis. Mild left hydronephrosis and urothelial enhancement may represent ascending infection/pyelitis. Cystitis. Proctitis. Small Bowel X-Ray 09/29/24 12:13 IMPRESSION: 1. Persistent mildly dilated loops of small bowel but without discrete transition point and with normal small bowel transit time consistent with resolving versus partial small bowel obstruction. Abdomen X-Ray 10/01/24 06:49 Impression: NG tube in place with relatively nonspecific bowel gas pattern. Oral contrast present in large bowel. Chest X-Ray 10/01/24 13:48 IMPRESSION: 1: NO ACUTE CARDIOPULMONARY DISEASE. Head CT 10/01/24 14:04 Impression: No acute intracranial hemorrhage or suspicious mass effect. Labs Labs: Laboratory Results - last 24 hr 10/01/24 10/01/24 10/02/24 13:17 13:43 04:15 WBC 6.7 3.8 L RBC 3.45 L 2.65 L Hgb 10.0 L 7.7 L Hct 31.8 L 25.1 L MCV 92.2 94.7 MCH 29.0 29.1 MCHC 31.4 L 30.7 L RDW 15.9 H 16.1 H Plt Count 240 181 MPV 9.4 9.9 Immature Gran % (Auto) 0.7 H 1.6 H Neut % (Auto) 81.8 H 68.7 Lymph % (Auto) 7.6 L 13.8 L [place] % (Auto) 8.9 H 12.8 H Eos % (Auto) 0.1 1.8 Baso % (Auto) 0.9 1.3 H Lymph # (Auto) 0.51 L 0.53 L [place] # (Auto) 0.6 0.5 Eos # (Auto) 0.0 0.1 Baso # (Auto) 0.1 0.1 Abs Immat Gran (auto) 0.05 H 0.06 H Absolute Neuts (auto) 5.5 2.6 Absolute Nucleated RBC 0.000 0.000 Nucleated RBC % 0.0 0.0 Sodium 140 139 Potassium 3.0 L 3.1 L Chloride 113 H 112 H Carbon Dioxide 13 L 21 L Anion Gap 14 H 6 BUN 10 9 Creatinine 0.93 0.87 Estim Creat Clear Calc 47 50 Estimated GFR 60 > 60 Glucose 139 H 88 POC Capillary Glucose 158 H Lactic Acid 1.4 Calcium 8.7 8.4 Magnesium 1.7 Total Bilirubin 0.6 0.3 AST 21 17 ALT 12 8 Alkaline Phosphatase 76 60 Total Protein 6.0 L 5.0 L Albumin 3.3 L 2.5 L Prolactin 11.0
--- NOTE | 2024-10-02 15:08 | P.PNIM_ITS ---
Progress Note: A&P Assessment and Plan (1) Small bowel obstruction: Code(s): K56.609 - Unspecified intestinal obstruction, unspecified as to partial versus complete obstruction Status: Acute (2) Acute renal failure: Qualifiers: Acute renal failure type: unspecified Qualified Code(s): N17.9 - Acute kidney failure, unspecified Code(s): N17.9 - Acute kidney failure, unspecified Status: Acute (3) Catheter-associated urinary tract infection: Qualifiers: Encounter type: initial encounter Indwelling urinary catheter type: indwelling urethral catheter Qualified Code(s): T83.511A - Infection and inflammatory reaction due to indwelling urethral catheter, initial encounter; N39.0 - Urinary tract infection, site not specified Code(s): T83.511A - Infection and inflammatory reaction due to indwelling urethral catheter, initial encounter; N39.0 - Urinary tract infection, site not specified Status: Acute Plan Patsy Hugo is a 64-year-old female with a medical history significant for dementia, sedentary status, pressure ulcers around the sacrum, constipation, depression, GERD, dyslipidemia, chronic indwelling White catheter A resident of [facility], she was recently evaluated and managed for sepsis, fecal impaction an SBO (09/16-02/07) and discharged . staff were concerned about abdominal pain with nausea and vomiting; symptoms aggravated by meals/fluids, alleviated by fasting; associated with some anxiety and restlessness. # Small bowel obstruction and fecal impaction CT scan also shows a large amount of stool in her right colon, which could be contributing to or causing this issue. Hypaque enema done Pulled NG tube out overnight and replaced. KUB Findings: Large amount of retained fecal material in the right colon. There is dilated small bowel throughout the abdomen, consistent with obstruction. There is an IVC filter present, position unchanged. No abnormal calcifications. There is moderate lumbar spondylosis with levoscoliosis. # seizures 10/01/2024 aborted with IV Ativan. Loaded with Keppra and will continue Keppra as ordered. Neurology consulted. CT head was negative. # UTI (urinary tract infection): Urine culture grew pseudomonas aeruginosa. Sensitivities to all abx Switch from Cefepime 2 gram IVPB q 12. Do Levaquin 500 mg IV daily # Constipation AND FECAL IMPACTION: continue with NG tube decompression and bowel rest now and continue IV fluids. Hypaque enema PRN # Hypertension: Blood pressure is well control # Hypokalemia: Potassium Chloride 40 meq IVPB PRN to keep K wnl # Hypomagnesemia: corrected Metabolic acidosis switch to bicarb gtt anemia: no signs of bleeding. transfusion to keep Hb > 7. H&H remained stable . needed transfusion last admission. bilateral hydronephrosis due to mass effect on distal ureter by fecal impaction. Recheck ultrasound with mild persistent right hydronephrosis. fu with urology as op basis. this time ct with left mild hydronephrosis Chronic White catheter Neurogenic bladder History of ulcerative colitis GERD Hypertension Hyperlipidemia History of DVT Chronic anemia Dementia DVT Prophylaxis: heparin sq Code Status: Full code [facility] Subjective Date/time seen: 10/02/24 15:08 Interval history: Patient more awake. No further seizures. Review of Systems Review of Systems: All systems reviewed & are unremarkable except as noted in HPI and below Exam Narrative: GENERAL: Pleasant, in no acute distress. Well-nourished. - EYES: EOMI. Anicteric. - HENT: Moist mucous membranes. - LUNGS: Clear to auscultation bilateral ly, no wheezing, rhonchi, or rales. - CARDIOVASCULAR: Regular rate and rhyth m. No murmur. No JVD. - ABDOMEN: Soft, non-tender and non-dist ended. No palpable masses. - EXTREMITIES: No edema. Peripheral puls es 2+. Non-tender. - NEUROLOGIC: No focal neurological defi cits. CN II-XII grossly intact. - PSYCHIATRIC: Awake, Alert oriented to person only. Appropriate mood and affect. - SKIN: No rashes or lesions. Warm. - LYMPH: No cervical lymphadenopathy. Objective Data Vital Signs Vital Signs: Vital Signs - 24 hr 10/01/24 16:00 10/01/24 16:00 10/01/24 20:00 Temperature 98.1 F 98.0 F Pulse Rate 95 95 88 Respiratory Rate 22 H 20 Blood Pressure 127/63 137/75 Pulse Oximetry 98 99 Oxygen Delivery 10/01/24 20:00 10/01/24 21:14 10/02/24 00:00 Temperature Pulse Rate 101 H 76 Respiratory Rate Blood Pressure Pulse Oximetry Oxygen Delivery Room Air 10/02/24 00:55 10/02/24 04:00 10/02/24 04:00 Temperature 98.2 F 97.5 F L Pulse Rate 84 77 94 Respiratory Rate 18 18 Blood Pressure 141/81 H 125/56 L Pulse Oximetry 100 99 Oxygen Delivery 10/02/24 08:00 10/02/24 08:00 10/02/24 11:54 Temperature 98.5 F 98.3 F Pulse Rate 91 87 98 Respiratory Rate 16 18 Blood Pressure 128/64 147/79 H Pulse Oximetry 99 100 Oxygen Delivery 10/02/24 12:00 Temperature Pulse Rate 87 Respiratory Rate Blood Pressure Pulse Oximetry Oxygen Delivery Intake/Output Intake/Output: Intake & Output 09/29/24 09/30/24 10/01/24 10/02/24 23:59 23:59 23:59 23:59 Intake Total 1891.7 1100 1910.8 1208 Output Total 3900 3250 4510 650 [facility] -2008.3 -2150 -2599.2 558 Meds/Results Medications: Active Medications Generic Name Dose Route Start Last Admin Trade Name Freq PRN Reason Stop Dose Admin Acetaminophen 650 mg 09/27/24 05:03 10/01/24 11:11 Acetaminophen 325 Mg Tablet FEED TUBE 650 mg Q4H PRN Administration Mild Pain (1-3) or Fever Docusate Sodium 100 mg 10/01/24 21:00 10/02/24 08:16 Docusate Sodium 100 Mg Capsule PO Not Given Q12HR SONIA Heparin Sodium (Porcine) 5,000 units 09/27/24 09:00 10/02/24 08:21 Heparin Sodium 5,000 Units/Ml Vial SUB-Q 5,000 units Q12HR SONIA Administration Levofloxacin/Dextrose 500 mg in 100 mls @ 100 mls/hr 09/30/24 21:00 10/01/24 22:55 Levaquin 500 Mg/D5w 100 Ml IVPB Infused HS SONIA Infusion Sodium Bicarbonate 100 meq/ 1,100 mls @ 50 mls/hr 10/01/24 09:00 10/02/24 12:18 Dextrose IV CONT 50 mls/hr .Q22H SONIA Administration Levetiracetam 750 mg/ Dextrose 107.5 mls @ 430 mls/hr 10/01/24 21:00 10/02/24 08:51 IVPB Infused Q12HR SONIA Infusion Lactulose 20 gm 10/01/24 10:25 10/02/24 08:16 Lactulose 20 Gm/30 Ml Udc PO Not Given QAM SONIA Lorazepam 2 mg 10/01/24 14:15 Lorazepam Inj (*Crx) 2 Mg/Ml Vial IV PUSH Q6H PRN Seizures Melatonin 5 mg 09/27/24 05:03 09/30/24 20:38 Melatonin 5 Mg Tablet PO 5 mg HS PRN Administration Insomnia Morphine Sulfate 2 mg 09/26/24 22:23 Morphine Sulfate (*Crx) 2 Mg/Ml Inj IV PUSH Q2H PRN Pain Rated 7-10 Ondansetron HCl 4 mg 09/26/24 22:23 09/30/24 14:57 Ondansetron Inj 4 Mg/2 Ml Vial IV PUSH 4 mg Q4H PRN Administration Nausea Pantoprazole Sodium 20 mg 09/27/24 09:00 10/02/24 08:21 Pantoprazole Sodium Iv 40 Mg Vial IV PUSH 20 mg Q12HR SONIA Administration Polyethylene Glycol 17 gm 09/30/24 09:00 10/02/24 08:16 Polyethylene Glycol 3350 17 Gm Powd.Pack PO Not Given BID SONIA Polyethylene Glycol 17 gm 10/02/24 09:00 10/02/24 08:16 Polyethylene Glycol 3350 17 Gm Powd.Pack PO Not Given QAM SONIA Sertraline HCl 50 mg 09/29/24 09:00 10/02/24 08:16 Sertraline Hcl 50 Mg Tablet PO Not Given DAILY [facility] Radiology Results: ITS Impressions Abdomen/Pelvis CT 09/26/24 20:50 IMPRESSION: Small bilateral pleural effusions. Chronic intra and extra hepatic bile duct dilation. Mid small bowel obstruction, transition point may represent an area of adhesion or short segment infectious, inflammatory, or ischemic colitis. Mild left hydronephrosis and urothelial enhancement may represent ascending infection/pyelitis. Cystitis. Proctitis. Small Bowel X-Ray 09/29/24 12:13 IMPRESSION: 1. Persistent mildly dilated loops of small bowel but without discrete transition point and with normal small bowel transit time consistent with resolving versus partial small bowel obstruction. Abdomen X-Ray 10/01/24 06:49 Impression: NG tube in place with relatively nonspecific bowel gas pattern. Oral contrast present in large bowel. Chest X-Ray 10/01/24 13:48 IMPRESSION: 1: NO ACUTE CARDIOPULMONARY DISEASE. Head CT 10/01/24 14:04 Impression: No acute intracranial hemorrhage or suspicious mass effect. Labs Labs: Laboratory Results - last 24 hr 10/01/24 10/02/24 13:43 04:15 WBC 3.8 L RBC 2.65 L Hgb 7.7 L Hct 25.1 L MCV 94.7 MCH 29.1 MCHC 30.7 L RDW 16.1 H Plt Count 181 MPV 9.9 Immature Gran % (Auto) 1.6 H Neut % (Auto) 68.7 Lymph % (Auto) 13.8 L [place] % (Auto) 12.8 H Eos % (Auto) 1.8 Baso % (Auto) 1.3 H Lymph # (Auto) 0.53 L [place] # (Auto) 0.5 Eos # (Auto) 0.1 Baso # (Auto) 0.1 Abs Immat Gran (auto) 0.06 H Absolute Neuts (auto) 2.6 Absolute Nucleated RBC 0.000 Nucleated RBC % 0.0 Sodium 139 Potassium 3.1 L Chloride 112 H Carbon Dioxide 21 L Anion Gap 6 BUN 9 Creatinine 0.87 Estim Creat Clear Calc 50 Estimated GFR > 60 Glucose 88 Calcium 8.4 Magnesium 1.7 Total Bilirubin 0.3 AST 17 ALT 8 Alkaline Phosphatase 60 Total Protein 5.0 L Albumin 2.5 L Prolactin 11.0
[2024-10-02] MEDS: polyethylene glycoL 3350 17 GM POWD.PACK PO (16:52)
[2024-10-02] MEDS: DOCUSATE SODIUM 100 MG CAPSULE PO (20:37)
[2024-10-02] MEDS: MELATONIN 5 MG TABLET PO (20:44)
[2024-10-02] MEDS: levoFLOXacin 500 MG/D5W 100 ML 500 MG/100 ML BAG 100 MG IVPB (22:00)
[2024-10-03] VITALS (10 sets, daily range): BP systolic 119–144; BP diastolic 47–92; PULSE 72–105; RESP 12–17; TEMP 36.2–37.2; O2SAT 96–100
[2024-10-03 04:26] LABS: Basophils Percent Auto 1.1 % (0.2-1.2); Eosinophils Absolute Auto 0.2 K/mm3 (0-0.3); Hematocrit 23.6 % (37.0-47.0); Hemoglobin 7.3 g/dL (12.0-15.0); Immature Granulocyte Absolute 0.06 K/mm3 (0.00-0.031); Immature Granulocyte Percent A 2.1 % (0-0.5); Lymphocytes Absolute Auto 0.47 K/mm3 (0.9-3.2); Lymphocytes Percent Auto 16.6 % (18.3-44.2); Mean Corpuscular HGB Conc 30.9 g/dl (32-36); Mean Corpuscular Volume 93.7 fl (80-100); Mean Platelet Volume 9.9 fl (7.4-10.4); Monocytes Absolute Auto 0.4 K/mm3 (0.1-0.6); Monocytes Percent Auto 12.7 % (2.6-8.5); Neutrophils Absolute Auto 1.7 K/mm3 (1.3-6.7); Neutrophils Percent Auto 61.5 % (45.5-73.1); Platelet Count Result 154 k/mm3 (150-375); Red Blood Count 2.52 M/mm3 (4.2-5.4); Red Cell Distribution Width 16.2 % (11.5-14.5); White Blood Count 2.8 K/mm3 (4.5-10.0)
[2024-10-03 04:44] LABS: Alanine Aminotransferase 8 U/L (6-35); Albumin Level 2.4 g/dL (3.5-5.1); Alkaline Phosphatase 60 U/L (38-126); Anion Gap 4 mmol/L (4-12); Aspartate Amino Transferase 17 U/L (14-36); Bilirubin,Total 0.3 mg/dL (0.2-1.3); Blood Urea Nitrogen 14 mg/dL (7-17); Calcium 7.8 mg/dL (8.4-10.2); Carbon Dioxide 24 mmol/L (22-30); Chloride 105 mmol/L (98-107); Estimated CRCL calculation 55 ml/min; Estimated Glomerular Filt Rate > 60; Glucose 88 mg/dL (65-110); Magnesium 1.5 mg/dL (1.6-2.3); Potassium 3.3 mmol/L (3.4-5.0); Sodium 133 mmol/L (137-145)
[2024-10-03] MEDS: PANTOPRAZOLE SODIUM IV 40 MG VIAL 20 MG IV PUSH ×2 (08:36→20:01)
[2024-10-03] MEDS: levETIRAcetam IV 750 MG in DEXTROSE 5% 100 ML 430 MG IVPB ×2 (08:40→20:00)
[2024-10-03] MEDS: DOCUSATE SODIUM 100 MG CAPSULE PO (08:42)
[2024-10-03] MEDS: SERTRALINE HCL 50 MG TABLET PO (08:42)
[2024-10-03] MEDS: LACTULOSE 20 GM/30 ML UDC PO (08:43)
[2024-10-03] MEDS: polyethylene glycoL 3350 17 GM POWD.PACK PO (08:44)
[2024-10-03] MEDS: SODIUM BICARBONATE 8.4% 100 MEQ in DEXTROSE 5% 1,000 ML 1,000 ML 50 MEQ IV CONT (08:44)
[2024-10-03] MEDS: HEPARIN SODIUM 5,000 UNITS/ML VIAL 5000 UNITS SUB-Q ×2 (08:45→20:01)
--- NOTE | 2024-10-03 11:56 | PM.PNGS ---
Progress Note: A&P Assessment and Plan (1) Small bowel obstruction: Code(s): K56.609 - Unspecified intestinal obstruction, unspecified as to partial versus complete obstruction Status: Acute Assessment and Plan: Resolved. Advance to regular diet. No surgical indications at this time. (2) Constipation: Qualifiers: Constipation type: chronic idiopathic constipation Qualified Code(s): K59.04 - Chronic idiopathic constipation Code(s): K59.00 - Constipation, unspecified Status: Acute Assessment and Plan: Patient takes many medications chronically for constipation including lactulose, MiraLax, Colace. I think this is the problem at this point. Patient has likely had her previous admission and this admission due to severe constipation and retained stool. Will ask GI to see for possible colonoscopy and treatment with medication. (3) Chronic indwelling White catheter: Code(s): Z97.8 - Presence of other specified devices Status: Acute (4) Chronic anemia: Code(s): D64.9 - Anemia, unspecified Status: Chronic Assessment and Plan: Stable (5) Pressure ulcer of buttock: Qualifiers: Pressure injury stage: unstageable Laterality: unspecified laterality Qualified Code(s): L89.300 - Pressure ulcer of unspecified buttock, unstageable Code(s): L89.309 - Pressure ulcer of unspecified buttock, unspecified stage Status: Acute Assessment and Plan: Continue local wound care and frequent turning (6) Dementia: Code(s): F03.90 - Unspecified dementia, unspecified severity, without behavioral disturbance, psychotic disturbance, mood disturbance, and anxiety Status: Chronic (7) Presence of IVC filter: Code(s): Z95.828 - Presence of other vascular implants and grafts Status: Chronic Subjective Subjective Date/Time Seen: 10/03/24 11:56 Interval history: Bowels moving. Tolerating full liquids. No abd pain. No bloating/nausea. Exam GI: Inspection: non-distended GI Palp: Yes Soft to palpation, No Tenderness to palpation present (GI), No Guarding due to palpation present (GI) and No Rebound tenderness present Percussion: Yes normal to percussion Auscultation: normal bowel sounds Objective Data Vital Signs Vital Signs: Vital Signs - 24 hr 10/02/24 12:00 10/02/24 16:00 10/02/24 16:00 Temperature 98.1 F Pulse Rate 87 98 98 Respiratory Rate 16 Blood Pressure 145/78 H Pulse Oximetry 98 Oxygen Delivery 10/02/24 20:00 10/02/24 20:00 10/02/24 20:00 Temperature 100.1 F H Pulse Rate 89 91 91 Respiratory Rate 16 16 Blood Pressure 119/65 Pulse Oximetry 99 96 Oxygen Delivery Room Air 10/03/24 00:00 10/03/24 00:00 10/03/24 03:58 Temperature 98.9 F Pulse Rate 91 79 77 Respiratory Rate 16 Blood Pressure 120/62 Pulse Oximetry 99 Oxygen Delivery 10/03/24 04:15 10/03/24 08:00 10/03/24 08:42 Temperature 98.3 F 97.2 F L Pulse Rate 77 90 Respiratory Rate 16 12 Blood Pressure 119/52 L 123/52 L Pulse Oximetry 98 100 100 Oxygen Delivery Room Air 10/03/24 08:42 Temperature Pulse Rate 75 Respiratory Rate Blood Pressure Pulse Oximetry Oxygen Delivery Intake/Output Intake/Output: Intake & Output 09/30/24 10/01/24 10/02/24 10/03/24 23:59 23:59 23:59 23:59 Intake Total 1100 1910.8 3045.5 1361.7 Output Total 3250 4510 1800 400 Balance -2150 -2599.2 1245.5 961.7 Meds/Results Medications: Active Medications Generic Name Dose Route Start Last Admin Trade Name Freq PRN Reason Stop Dose Admin Acetaminophen 650 mg 09/27/24 05:03 10/01/24 11:11 Acetaminophen 325 Mg Tablet FEED TUBE 650 mg Q4H PRN Administration Mild Pain (1-3) or Fever Docusate Sodium 100 mg 10/01/24 21:00 10/03/24 08:42 Docusate Sodium 100 Mg Capsule PO 100 mg Q12HR SONIA Administration Heparin Sodium (Porcine) 5,000 units 09/27/24 09:00 10/03/24 08:45 Heparin Sodium 5,000 Units/Ml Vial SUB-Q 5,000 units Q12HR SONIA Administration Levofloxacin/Dextrose 500 mg in 100 mls @ 100 mls/hr 09/30/24 21:00 10/02/24 23:00 Levaquin 500 Mg/D5w 100 Ml IVPB Infused HS SONIA Infusion Sodium Bicarbonate 100 meq/ 1,100 mls @ 50 mls/hr 10/01/24 09:00 10/03/24 08:44 Dextrose IV CONT 50 mls/hr .Q22H SONIA Administration Levetiracetam 750 mg/ Dextrose 107.5 mls @ 430 mls/hr 10/01/24 21:00 10/03/24 08:40 IVPB 430 mls/hr Q12HR SONIA Administration Lactulose 20 gm 10/01/24 10:25 10/03/24 08:43 Lactulose 20 Gm/30 Ml Udc PO 20 gm QAM SONIA Administration Lorazepam 2 mg 10/01/24 14:15 Lorazepam Inj (*Crx) 2 Mg/Ml Vial IV PUSH Q6H PRN Seizures Melatonin 5 mg 09/27/24 05:03 10/02/24 20:44 Melatonin 5 Mg Tablet PO 5 mg HS PRN Administration Insomnia Morphine Sulfate 2 mg 09/26/24 22:23 Morphine Sulfate (*Crx) 2 Mg/Ml Inj IV PUSH Q2H PRN Pain Rated 7-10 Ondansetron HCl 4 mg 09/26/24 22:23 09/30/24 14:57 Ondansetron Inj 4 Mg/2 Ml Vial IV PUSH 4 mg Q4H PRN Administration Nausea Pantoprazole Sodium 20 mg 09/27/24 09:00 10/03/24 08:36 Pantoprazole Sodium Iv 40 Mg Vial IV PUSH 20 mg Q12HR SONIA Administration Polyethylene Glycol 17 gm 09/30/24 09:00 10/03/24 08:44 Polyethylene Glycol 3350 17 Gm Powd.Pack PO 17 gm BID SONIA Administration Polyethylene Glycol 17 gm 10/02/24 09:00 10/03/24 08:46 Polyethylene Glycol 3350 17 Gm Powd.Pack PO Not Given QAM SONIA Sertraline HCl 50 mg 09/29/24 09:00 10/03/24 08:42 Sertraline Hcl 50 Mg Tablet PO 50 mg DAILY SONIA Administration Radiology Results: ITS Impressions Abdomen/Pelvis CT 09/26/24 20:50 IMPRESSION: Small bilateral pleural effusions. Chronic intra and extra hepatic bile duct dilation. Mid small bowel obstruction, transition point may represent an area of adhesion or short segment infectious, inflammatory, or ischemic colitis. Mild left hydronephrosis and urothelial enhancement may represent ascending infection/pyelitis. Cystitis. Proctitis. Small Bowel X-Ray 09/29/24 12:13 IMPRESSION: 1. Persistent mildly dilated loops of small bowel but without discrete transition point and with normal small bowel transit time consistent with resolving versus partial small bowel obstruction. Abdomen X-Ray 10/01/24 06:49 Impression: NG tube in place with relatively nonspecific bowel gas pattern. Oral contrast present in large bowel. Chest X-Ray 10/01/24 13:48 IMPRESSION: 1: NO ACUTE CARDIOPULMONARY DISEASE. Head CT 10/01/24 14:04 Impression: No acute intracranial hemorrhage or suspicious mass effect. Labs Labs: Laboratory Results - last 24 hr 10/03/24 03:42 WBC 2.8 L RBC 2.52 L Hgb 7.3 L Hct 23.6 L MCV 93.7 MCH 29.0 MCHC 30.9 L RDW 16.2 H Plt Count 154 MPV 9.9 Immature Gran % (Auto) 2.1 H Neut % (Auto) 61.5 Lymph % (Auto) 16.6 L [place] % (Auto) 12.7 H Eos % (Auto) 6.0 H Baso % (Auto) 1.1 Lymph # (Auto) 0.47 L [place] # (Auto) 0.4 Eos # (Auto) 0.2 Baso # (Auto) 0.0 Abs Immat Gran (auto) 0.06 H Absolute Neuts (auto) 1.7 Absolute Nucleated RBC 0.000 Nucleated RBC % 0.0 Sodium 133 L Potassium 3.3 L Chloride 105 Carbon Dioxide 24 Anion Gap 4 BUN 14 D Creatinine 0.79 Estim Creat Clear Calc 55 Estimated GFR > 60 Glucose 88 Calcium 7.8 L Magnesium 1.5 L Total Bilirubin 0.3 AST 17 ALT 8 Alkaline Phosphatase 60 Total Protein 5.0 L Albumin 2.4 L
--- NOTE | 2024-10-03 12:05 | PM.IMPN ---
Progress Note: A&P Assessment and Plan (1) Small bowel obstruction: Code(s): K56.609 - Unspecified intestinal obstruction, unspecified as to partial versus complete obstruction Status: Acute (2) Acute renal failure: Qualifiers: Acute renal failure type: unspecified Qualified Code(s): N17.9 - Acute kidney failure, unspecified Code(s): N17.9 - Acute kidney failure, unspecified Status: Acute (3) Catheter-associated urinary tract infection: Qualifiers: Encounter type: initial encounter Indwelling urinary catheter type: indwelling urethral catheter Qualified Code(s): T83.511A - Infection and inflammatory reaction due to indwelling urethral catheter, initial encounter; N39.0 - Urinary tract infection, site not specified Code(s): T83.511A - Infection and inflammatory reaction due to indwelling urethral catheter, initial encounter; N39.0 - Urinary tract infection, site not specified Status: Acute Plan Patsy Hugo is a 64-year-old female with a medical history significant for dementia, sedentary status, pressure ulcers around the sacrum, constipation, depression, GERD, dyslipidemia, chronic indwelling White catheter A resident of [facility], she was recently evaluated and managed for sepsis, fecal impaction an SBO (09/16-02/07) and discharged . staff were concerned about abdominal pain with nausea and vomiting; symptoms aggravated by meals/fluids, alleviated by fasting; associated with some anxiety and restlessness. # Small bowel obstruction and fecal impaction CT scan also shows a large amount of stool in her right colon, which could be contributing to or causing this issue. Hypaque enema done Pulled NG tube out overnight and replaced. KUB Findings: Large amount of retained fecal material in the right colon. There is dilated small bowel throughout the abdomen, consistent with obstruction. There is an IVC filter present, position unchanged. No abnormal calcifications. There is moderate lumbar spondylosis with levoscoliosis. # seizures 10/01/2024 aborted with IV Ativan. Loaded with Keppra and will continue Keppra as ordered. Neurology consulted. CT head was negative. # UTI (urinary tract infection): Urine culture grew pseudomonas aeruginosa. Sensitivities to all abx Switch from Cefepime 2 gram IVPB q 12. Do Levaquin 500 mg IV daily # Constipation AND FECAL IMPACTION: continue with NG tube decompression and bowel rest now and continue IV fluids. Hypaque enema PRN # Hypertension: Blood pressure is well control # Hypokalemia: Potassium Chloride 40 meq IVPB PRN to keep K wnl # Hypomagnesemia: corrected Metabolic acidosis switch to bicarb gtt anemia: no signs of bleeding. transfusion to keep Hb > 7. H&H remained stable . needed transfusion last admission. bilateral hydronephrosis due to mass effect on distal ureter by fecal impaction. Recheck ultrasound with mild persistent right hydronephrosis. fu with urology as op basis. this time ct with left mild hydronephrosis Chronic White catheter Neurogenic bladder History of ulcerative colitis GERD Hypertension Hyperlipidemia History of DVT Chronic anemia Dementia DVT Prophylaxis: heparin sq Code Status: Full code snf resident Subjective Date/time seen: 10/03/24 12:05 Interval history: No overnight events. Patient reports having bowel movement. Tolerating diet as well. Denies any abdominal pain nausea vomiting. Review of Systems Review of Systems: All systems reviewed & are unremarkable except as noted in HPI and below Exam Narrative: GENERAL: Pleasant, in no acute distress. Well-nourished. - EYES: EOMI. Anicteric. - HENT: Moist mucous membranes. - LUNGS: Clear to auscultation bilaterally, no wheezing, rhonchi, or rales. - CARDIOVASCULAR: Regular rate and rhythm. No murmur. No JVD. - ABDOMEN: Soft, non-tender and non-distended. No palpable masses. - EXTREMITIES: No edema. Peripheral pulses 2+. Non-tender. - NEUROLOGIC: No focal neurological deficits. CN II-XII grossly intact. - PSYCHIATRIC: Awake, Alert oriented to person only. Appropriate mood and affect. - SKIN: No rashes or lesions. Warm. - LYMPH: No cervical lymphadenopathy. Objective Data Vital Signs Vital Signs: Vital Signs - 24 hr 10/02/24 16:00 10/02/24 16:00 10/02/24 20:00 Temperature 98.1 F 100.1 F H Pulse Rate 98 98 89 Respiratory Rate 16 16 Blood Pressure 145/78 H 119/65 Pulse Oximetry 98 99 Oxygen Delivery 10/02/24 20:00 10/02/24 20:00 10/03/24 00:00 Temperature 98.9 F Pulse Rate 91 91 91 Respiratory Rate 16 16 Blood Pressure 120/62 Pulse Oximetry 96 99 Oxygen Delivery Room Air 10/03/24 00:00 10/03/24 03:58 10/03/24 04:15 Temperature 98.3 F Pulse Rate 79 77 77 Respiratory Rate 16 Blood Pressure 119/52 L Pulse Oximetry 98 Oxygen Delivery 10/03/24 08:00 10/03/24 08:42 10/03/24 08:42 Temperature 97.2 F L Pulse Rate 90 75 Respiratory Rate 12 Blood Pressure 123/52 L Pulse Oximetry 100 100 Oxygen Delivery Room Air Intake/Output Intake/Output: Intake & Output 09/30/24 10/01/24 10/02/24 10/03/24 23:59 23:59 23:59 23:59 Intake Total 1100 1910.8 3045.5 1361.7 Output Total 3250 4510 1800 400 Balance -2150 -2599.2 1245.5 961.7 Meds/Results Medications: Active Medications Generic Name Dose Route Start Last Admin Trade Name Freq PRN Reason Stop Dose Admin Acetaminophen 650 mg 09/27/24 05:03 10/01/24 11:11 Acetaminophen 325 Mg Tablet FEED TUBE 650 mg Q4H PRN Administration Mild Pain (1-3) or Fever Docusate Sodium 100 mg 10/01/24 21:00 10/03/24 08:42 Docusate Sodium 100 Mg Capsule PO 100 mg Q12HR SONIA Administration Heparin Sodium (Porcine) 5,000 units 09/27/24 09:00 10/03/24 08:45 Heparin Sodium 5,000 Units/Ml Vial SUB-Q 5,000 units Q12HR SONIA Administration Levofloxacin/Dextrose 500 mg in 100 mls @ 100 mls/hr 09/30/24 21:00 10/02/24 23:00 Levaquin 500 Mg/D5w 100 Ml IVPB Infused HS SONIA Infusion Sodium Bicarbonate 100 meq/ 1,100 mls @ 50 mls/hr 10/01/24 09:00 10/03/24 08:44 Dextrose IV CONT 50 mls/hr .Q22H SONIA Administration Levetiracetam 750 mg/ Dextrose 107.5 mls @ 430 mls/hr 10/01/24 21:00 10/03/24 08:40 IVPB 430 mls/hr Q12HR SONIA Administration Lactulose 20 gm 10/01/24 10:25 10/03/24 08:43 Lactulose 20 Gm/30 Ml Udc PO 20 gm QAM SONIA Administration Lorazepam 2 mg 10/01/24 14:15 Lorazepam Inj (*Crx) 2 Mg/Ml Vial IV PUSH Q6H PRN Seizures Melatonin 5 mg 09/27/24 05:03 10/02/24 20:44 Melatonin 5 Mg Tablet PO 5 mg HS PRN Administration Insomnia Morphine Sulfate 2 mg 09/26/24 22:23 Morphine Sulfate (*Crx) 2 Mg/Ml Inj IV PUSH Q2H PRN Pain Rated 7-10 Ondansetron HCl 4 mg 09/26/24 22:23 09/30/24 14:57 Ondansetron Inj 4 Mg/2 Ml Vial IV PUSH 4 mg Q4H PRN Administration Nausea Pantoprazole Sodium 20 mg 09/27/24 09:00 10/03/24 08:36 Pantoprazole Sodium Iv 40 Mg Vial IV PUSH 20 mg Q12HR SONIA Administration Polyethylene Glycol 17 gm 09/30/24 09:00 10/03/24 08:44 Polyethylene Glycol 3350 17 Gm Powd.Pack PO 17 gm BID SONIA Administration Polyethylene Glycol 17 gm 10/02/24 09:00 10/03/24 08:46 Polyethylene Glycol 3350 17 Gm Powd.Pack PO Not Given QAM SONIA Sertraline HCl 50 mg 09/29/24 09:00 10/03/24 08:42 Sertraline Hcl 50 Mg Tablet PO 50 mg DAILY SONIA Administration Radiology Results: ITS Impressions Abdomen/Pelvis CT 09/26/24 20:50 IMPRESSION: Small bilateral pleural effusions. Chronic intra and extra hepatic bile duct dilation. Mid small bowel obstruction, transition point may represent an area of adhesion or short segment infectious, inflammatory, or ischemic colitis. Mild left hydronephrosis and urothelial enhancement may represent ascending infection/pyelitis. Cystitis. Proctitis. Small Bowel X-Ray 09/29/24 12:13 IMPRESSION: 1. Persistent mildly dilated loops of small bowel but without discrete transition point and with normal small bowel transit time consistent with resolving versus partial small bowel obstruction. Abdomen X-Ray 10/01/24 06:49 Impression: NG tube in place with relatively nonspecific bowel gas pattern. Oral contrast present in large bowel. Chest X-Ray 10/01/24 13:48 IMPRESSION: 1: NO ACUTE CARDIOPULMONARY DISEASE. Head CT 10/01/24 14:04 Impression: No acute intracranial hemorrhage or suspicious mass effect. Labs Labs: Laboratory Results - last 24 hr 10/03/24 03:42 WBC 2.8 L RBC 2.52 L Hgb 7.3 L Hct 23.6 L MCV 93.7 MCH 29.0 MCHC 30.9 L RDW 16.2 H Plt Count 154 MPV 9.9 Immature Gran % (Auto) 2.1 H Neut % (Auto) 61.5 Lymph % (Auto) 16.6 L [place] % (Auto) 12.7 H Eos % (Auto) 6.0 H Baso % (Auto) 1.1 Lymph # (Auto) 0.47 L [place] # (Auto) 0.4 Eos # (Auto) 0.2 Baso # (Auto) 0.0 Abs Immat Gran (auto) 0.06 H Absolute Neuts (auto) 1.7 Absolute Nucleated RBC 0.000 Nucleated RBC % 0.0 Sodium 133 L Potassium 3.3 L Chloride 105 Carbon Dioxide 24 Anion Gap 4 BUN 14 D Creatinine 0.79 Estim Creat Clear Calc 55 Estimated GFR > 60 Glucose 88 Calcium 7.8 L Magnesium 1.5 L Total Bilirubin 0.3 AST 17 ALT 8 Alkaline Phosphatase 60 Total Protein 5.0 L Albumin 2.4 L
[2024-10-03] MEDS: POTASSIUM CHLORIDE 20 MEQ ER TABLET 40 MEQ PO (13:00)
--- NOTE | 2024-10-03 14:10 | P.PNGI_ITS ---
Progress Note: A&P Assessment and Plan (1) Fecal impaction: Code(s): K56.41 - Fecal impaction Status: Acute Assessment and Plan: bowel prep today and will set up colonoscopy tomorrow to assess if impaction of colon no n/v surgery on board, continue medical treatment (2) Small bowel obstruction: Code(s): K56.609 - Unspecified intestinal obstruction, unspecified as to partial versus complete obstruction Status: Acute Assessment and Plan: resolved (3) Dementia: Code(s): F03.90 - Unspecified dementia, unspecified severity, without behavioral disturbance, psychotic disturbance, mood disturbance, and anxiety Status: Chronic Assessment and Plan: evaluated also by neurology (4) Cerebral ventriculomegaly due to brain atrophy: Code(s): G31.9 - Degenerative disease of nervous system, unspecified Status: Acute (5) Chronic anemia: Code(s): D64.9 - Anemia, unspecified Status: Chronic (6) UTI (urinary tract infection): Code(s): N39.0 - Urinary tract infection, site not specified Status: Acute Assessment and Plan: on abx Subjective Date/time seen: 10/03/24 14:10 Interval history: no changes, no abdominal discomfort Review of Systems Review of Systems: All systems reviewed & are unremarkable except as noted in HPI and below Exam Const: General: comfortable HENMT: Face/Nose/Sinus: Normal nares present Eyes: Sclera: sclerae normal Neck: Neck: supple Resp: Effort & Inspection: normal respiratory effort Cardio: Rate: regular rate GI: Inspection: non-distended GI Palp: Yes Soft to palpation, No Tenderness to palpation present (GI) and No Guarding due to palpation present (GI) Auscultation: normal bowel sounds Urinary Catheter: Urinary Catheter: patent and draining Skin: General skin exam: normal color Neuro: Other: no obvious focal deficits she has advanced dementia Extrem: General: normal to inspection Psych: Other: unable to assess Objective Data Vital Signs Vital Signs: Vital Signs - 24 hr 10/02/24 16:00 10/02/24 16:00 10/02/24 20:00 Temperature 98.1 F 100.1 F H Pulse Rate 98 98 89 Respiratory Rate 16 16 Blood Pressure 145/78 H 119/65 Pulse Oximetry 98 99 Oxygen Delivery 10/02/24 20:00 10/02/24 20:00 10/03/24 00:00 Temperature 98.9 F Pulse Rate 91 91 91 Respiratory Rate 16 16 Blood Pressure 120/62 Pulse Oximetry 96 99 Oxygen Delivery Room Air 10/03/24 00:00 10/03/24 03:58 10/03/24 04:15 Temperature 98.3 F Pulse Rate 79 77 77 Respiratory Rate 16 Blood Pressure 119/52 L Pulse Oximetry 98 Oxygen Delivery 10/03/24 08:00 10/03/24 08:42 10/03/24 08:42 Temperature 97.2 F L Pulse Rate 90 75 Respiratory Rate 12 Blood Pressure 123/52 L Pulse Oximetry 100 100 Oxygen Delivery Room Air 10/03/24 12:00 10/03/24 12:00 Temperature Pulse Rate 72 89 Respiratory Rate 14 Blood Pressure 128/47 L Pulse Oximetry 96 Oxygen Delivery Intake/Output Intake/Output: Intake & Output 09/30/24 10/01/24 10/02/24 10/03/24 23:59 23:59 23:59 23:59 Intake Total 1100 1910.8 3045.5 1601.7 Output Total 3250 4510 1800 400 Balance -2150 -2599.2 1245.5 1201.7 Meds/Results Medications: Active Medications Generic Name Dose Route Start Last Admin Trade Name Freq PRN Reason Stop Dose Admin Acetaminophen 650 mg 09/27/24 05:03 10/01/24 11:11 Acetaminophen 325 Mg Tablet FEED TUBE 650 mg Q4H PRN Administration Mild Pain (1-3) or Fever Bisacodyl 20 mg 10/03/24 17:00 Bisacodyl 5 Mg Tablet Ec PO 10/03/24 17:01 ONCE ONE Docusate Sodium 100 mg 10/01/24 21:00 10/03/24 08:42 Docusate Sodium 100 Mg Capsule PO 100 mg Q12HR SONIA Administration Heparin Sodium (Porcine) 5,000 units 09/27/24 09:00 10/03/24 08:45 Heparin Sodium 5,000 Units/Ml Vial SUB-Q 5,000 units Q12HR SONIA Administration Levofloxacin/Dextrose 500 mg in 100 mls @ 100 mls/hr 09/30/24 21:00 10/02/24 23:00 Levaquin 500 Mg/D5w 100 Ml IVPB Infused HS SONIA Infusion Sodium Bicarbonate 100 meq/ 1,100 mls @ 50 mls/hr 10/01/24 09:00 10/03/24 08:44 Dextrose IV CONT 50 mls/hr .Q22H SONIA Administration Levetiracetam 750 mg/ Dextrose 107.5 mls @ 430 mls/hr 10/01/24 21:00 10/03/24 08:40 IVPB 430 mls/hr Q12HR SONIA Administration Lactulose 20 gm 10/01/24 10:25 10/03/24 08:43 Lactulose 20 Gm/30 Ml Udc PO 20 gm QAM SONIA Administration Lorazepam 2 mg 10/01/24 14:15 Lorazepam Inj (*Crx) 2 Mg/Ml Vial IV PUSH Q6H PRN Seizures Magnesium Citrate 300 ml 10/04/24 01:00 Magnesium Citrate 300 Ml Btl PO 10/04/24 01:01 ONCE ONE Melatonin 5 mg 09/27/24 05:03 10/02/24 20:44 Melatonin 5 Mg Tablet PO 5 mg HS PRN Administration Insomnia Morphine Sulfate 2 mg 09/26/24 22:23 Morphine Sulfate (*Crx) 2 Mg/Ml Inj IV PUSH Q2H PRN Pain Rated 7-10 Ondansetron HCl 4 mg 09/26/24 22:23 09/30/24 14:57 Ondansetron Inj 4 Mg/2 Ml Vial IV PUSH 4 mg Q4H PRN Administration Nausea Pantoprazole Sodium 20 mg 09/27/24 09:00 10/03/24 08:36 Pantoprazole Sodium Iv 40 Mg Vial IV PUSH 20 mg Q12HR SONIA Administration Polyethylene Glycol 238 gm 10/03/24 16:00 Polyethylene Glycol 3350 238 Gm Bottle PO 10/03/24 16:01 ONCE ONE Sertraline HCl 50 mg 09/29/24 09:00 10/03/24 08:42 Sertraline Hcl 50 Mg Tablet PO 50 mg DAILY SONIA Administration Radiology Results: ITS Impressions Abdomen/Pelvis CT 09/26/24 20:50 IMPRESSION: Small bilateral pleural effusions. Chronic intra and extra hepatic bile duct dilation. Mid small bowel obstruction, transition point may represent an area of adhesion or short segment infectious, inflammatory, or ischemic colitis. Mild left hydronephrosis and urothelial enhancement may represent ascending infection/pyelitis. Cystitis. Proctitis. Small Bowel X-Ray 09/29/24 12:13 IMPRESSION: 1. Persistent mildly dilated loops of small bowel but without discrete transition point and with normal small bowel transit time consistent with resolving versus partial small bowel obstruction. Abdomen X-Ray 10/01/24 06:49 Impression: NG tube in place with relatively nonspecific bowel gas pattern. Oral contrast present in large bowel. Chest X-Ray 10/01/24 13:48 IMPRESSION: 1: NO ACUTE CARDIOPULMONARY DISEASE. Head CT 10/01/24 14:04 Impression: No acute intracranial hemorrhage or suspicious mass effect. Labs Labs: Laboratory Results - last 24 hr 10/03/24 03:42 WBC 2.8 L RBC 2.52 L Hgb 7.3 L Hct 23.6 L MCV 93.7 MCH 29.0 MCHC 30.9 L RDW 16.2 H Plt Count 154 MPV 9.9 Immature Gran % (Auto) 2.1 H Neut % (Auto) 61.5 Lymph % (Auto) 16.6 L [place] % (Auto) 12.7 H Eos % (Auto) 6.0 H Baso % (Auto) 1.1 Lymph # (Auto) 0.47 L [place] # (Auto) 0.4 Eos # (Auto) 0.2 Baso # (Auto) 0.0 Abs Immat Gran (auto) 0.06 H Absolute Neuts (auto) 1.7 Absolute Nucleated RBC 0.000 Nucleated RBC % 0.0 Sodium 133 L Potassium 3.3 L Chloride 105 Carbon Dioxide 24 Anion Gap 4 BUN 14 D Creatinine 0.79 Estim Creat Clear Calc 55 Estimated GFR > 60 Glucose 88 Calcium 7.8 L Magnesium 1.5 L Total Bilirubin 0.3 AST 17 ALT 8 Alkaline Phosphatase 60 Total Protein 5.0 L Albumin 2.4 L
[2024-10-03] MEDS: BISACODYL 5 MG TABLET EC 20 MG PO (17:09)
[2024-10-03] MEDS: polyethylene glycoL 3350 238 GM BOTTLE PO (17:15)
[2024-10-03] MEDS: ONDANSETRON INJ 4 MG/2 ML VIAL IV PUSH (17:42)
[2024-10-03] MEDS: levoFLOXacin 500 MG/D5W 100 ML 500 MG/100 ML BAG 100 MG IVPB (20:26)
[2024-10-04] VITALS (10 sets, daily range): BP systolic 134–160; BP diastolic 60–107; PULSE 89–120; RESP 12–18; TEMP 36.2–36.9; O2SAT 96–100
[2024-10-04 05:03] LABS: Basophils Percent Auto 0.6 % (0.2-1.2); Eosinophils Absolute Auto 0.1 K/mm3 (0-0.3); Eosinophils Percent Auto 2.1 % (0-4.4); Hematocrit 25.8 % (37.0-47.0); Hemoglobin 8.3 g/dL (12.0-15.0); Immature Granulocyte Absolute 0.06 K/mm3 (0.00-0.031); Immature Granulocyte Percent A 1.8 % (0-0.5); Lymphocytes Absolute Auto 0.34 K/mm3 (0.9-3.2); Lymphocytes Percent Auto 10.2 % (18.3-44.2); Mean Corpuscular HGB Conc 32.2 g/dl (32-36); Mean Corpuscular Hemoglobin 29.3 pg (26-34); Mean Corpuscular Volume 91.2 fl (80-100); Monocytes Absolute Auto 0.4 K/mm3 (0.1-0.6); Monocytes Percent Auto 11.4 % (2.6-8.5); Neutrophils Absolute Auto 2.5 K/mm3 (1.3-6.7); Neutrophils Percent Auto 73.9 % (45.5-73.1); Platelet Count Result 167 k/mm3 (150-375); Red Blood Count 2.83 M/mm3 (4.2-5.4); Red Cell Distribution Width 16.1 % (11.5-14.5); White Blood Count 3.3 K/mm3 (4.5-10.0)
[2024-10-04 05:23] LABS: Alanine Aminotransferase 9 U/L (6-35); Albumin Level 2.8 g/dL (3.5-5.1); Alkaline Phosphatase 76 U/L (38-126); Anion Gap 8 mmol/L (4-12); Aspartate Amino Transferase 21 U/L (14-36); Bilirubin,Total 0.4 mg/dL (0.2-1.3); Blood Urea Nitrogen 15 mg/dL (7-17); Carbon Dioxide 25 mmol/L (22-30); Chloride 100 mmol/L (98-107); Estimated CRCL calculation 51 ml/min; Estimated Glomerular Filt Rate > 60; Glucose 91 mg/dL (65-110); Magnesium 1.4 mg/dL (1.6-2.3); Potassium 3.2 mmol/L (3.4-5.0); Sodium 133 mmol/L (137-145)
[2024-10-04] MEDS: PANTOPRAZOLE SODIUM IV 40 MG VIAL 20 MG IV PUSH ×2 (08:02→20:36)
[2024-10-04] MEDS: SODIUM BICARBONATE 8.4% 100 MEQ in DEXTROSE 5% 1,000 ML 1,000 ML 50 MEQ IV CONT (08:06)
[2024-10-04] MEDS: LACTULOSE 20 GM/30 ML UDC PO (08:08)
[2024-10-04] MEDS: SERTRALINE HCL 50 MG TABLET PO (08:08)
[2024-10-04] MEDS: DOCUSATE SODIUM 100 MG CAPSULE PO (08:08)
[2024-10-04] MEDS: HEPARIN SODIUM 5,000 UNITS/ML VIAL 5000 UNITS SUB-Q ×2 (08:08→20:37)
[2024-10-04] MEDS: levETIRAcetam IV 750 MG in DEXTROSE 5% 100 ML 430 MG IVPB ×2 (08:11→20:37)
--- NOTE | 2024-10-04 10:17 | PC.NURSE ---
Patient was unable to complete bowel prep overnight and refused completing miralax and bowel prep protocol.
--- NOTE | 2024-10-04 11:06 | PM.IMPN ---
Progress Note: A&P Assessment and Plan (1) Small bowel obstruction: Code(s): K56.609 - Unspecified intestinal obstruction, unspecified as to partial versus complete obstruction Status: Acute (2) Acute renal failure: Qualifiers: Acute renal failure type: unspecified Qualified Code(s): N17.9 - Acute kidney failure, unspecified Code(s): N17.9 - Acute kidney failure, unspecified Status: Acute (3) Catheter-associated urinary tract infection: Qualifiers: Encounter type: initial encounter Indwelling urinary catheter type: indwelling urethral catheter Qualified Code(s): T83.511A - Infection and inflammatory reaction due to indwelling urethral catheter, initial encounter; N39.0 - Urinary tract infection, site not specified Code(s): T83.511A - Infection and inflammatory reaction due to indwelling urethral catheter, initial encounter; N39.0 - Urinary tract infection, site not specified Status: Acute Plan Patsy Hugo is a 64-year-old female with a medical history significant for dementia, sedentary status, pressure ulcers around the sacrum, constipation, depression, GERD, dyslipidemia, chronic indwelling White catheter A resident of [facility], she was recently evaluated and managed for sepsis, fecal impaction an SBO (09/16-02/07) and discharged . staff were concerned about abdominal pain with nausea and vomiting; symptoms aggravated by meals/fluids, alleviated by fasting; associated with some anxiety and restlessness. # Small bowel obstruction and fecal impaction CT scan also shows a large amount of stool in her right colon, which could be contributing to or causing this issue. Hypaque enema done Pulled NG tube out overnight and replaced. KUB Findings: Large amount of retained fecal material in the right colon. There is dilated small bowel throughout the abdomen, consistent with obstruction. There is an IVC filter present, position unchanged. No abnormal calcifications. There is moderate lumbar spondylosis with levoscoliosis. Planned colonoscopy today # seizures 10/01/2024 aborted with IV Ativan. Loaded with Keppra and will continue Keppra as ordered. Neurology consulted. CT head was negative. # UTI (urinary tract infection): Urine culture grew pseudomonas aeruginosa. Sensitivities to all abx Switch from Cefepime 2 gram IVPB q 12. Do Levaquin 500 mg IV daily # Constipation AND FECAL IMPACTION: continue with NG tube decompression and bowel rest now and continue IV fluids. Hypaque enema PRN # Hypertension: Blood pressure is well control # Hypokalemia: Potassium Chloride 40 meq IVPB PRN to keep K wnl # Hypomagnesemia: corrected # Metabolic acidosis switch to bicarb gtt # anemia: no signs of bleeding. transfusion to keep Hb > 7. H&H remained stable . needed transfusion last admission. # bilateral hydronephrosis due to mass effect on distal ureter by fecal impaction. Recheck ultrasound with mild persistent right hydronephrosis. fu with urology as op basis. this time ct with left mild hydronephrosis Chronic White catheter Neurogenic bladder History of ulcerative colitis GERD Hypertension Hyperlipidemia History of DVT Chronic anemia Dementia DVT Prophylaxis: heparin sq Code Status: Full code retirement resident Subjective Date/time seen: 10/04/24 11:06 Interval history: No overnight events. Going for of colonoscopy. Does not want me to bother her today. Review of Systems Review of Systems: All systems reviewed & are unremarkable except as noted in HPI and below Exam Narrative: GENERAL: Irritable in no acute distress. Well-nourished. - EYES: EOMI. Anicteric. - HENT: Moist mucous membranes. - LUNGS: Clear to auscultation bilaterally, no wheezing, rhonchi, or rales. - CARDIOVASCULAR: Regular rate and rhythm. No murmur. No JVD. - ABDOMEN: Soft, non-tender and non-distended. No palpable masses. - EXTREMITIES: No edema. Peripheral pulses 2+. Non-tender. - NEUROLOGIC: No focal neurological deficits. CN II-XII grossly intact. - PSYCHIATRIC: Awake, Alert and conversant. Appropriate mood and affect. - SKIN: No rashes or lesions. Warm. - LYMPH: No cervical lymphadenopathy. Objective Data Vital Signs Vital Signs: Vital Signs - 24 hr 10/03/24 12:00 10/03/24 12:00 10/03/24 16:00 Temperature Pulse Rate 72 89 103 H Respiratory Rate 14 Blood Pressure 128/47 L Pulse Oximetry 96 Oxygen Delivery 10/03/24 16:00 10/03/24 19:40 10/03/24 20:00 Temperature 98.3 F Pulse Rate 89 104 H Respiratory Rate 12 17 Blood Pressure 124/54 L 144/92 H Pulse Oximetry 98 97 Oxygen Delivery Room Air 10/03/24 20:00 10/03/24 23:55 10/04/24 00:00 Temperature 98.2 F Pulse Rate 105 H 95 89 Respiratory Rate 17 Blood Pressure 131/74 Pulse Oximetry 99 Oxygen Delivery 10/04/24 04:00 10/04/24 04:00 10/04/24 04:54 Temperature 98.1 F Pulse Rate 113 H 110 H 110 H Respiratory Rate 17 Blood Pressure 160/107 H 147/86 H Pulse Oximetry 98 Oxygen Delivery 10/04/24 08:00 10/04/24 08:08 10/04/24 08:08 Temperature Pulse Rate 102 H 111 H 111 H Respiratory Rate 12 14 Blood Pressure 141/60 H Pulse Oximetry 97 96 Oxygen Delivery Room Air 10/04/24 10:08 Temperature 97.2 F L Pulse Rate 103 H Respiratory Rate 16 Blood Pressure 134/75 Pulse Oximetry 99 Oxygen Delivery Intake/Output Intake/Output: Intake & Output 10/01/24 10/02/24 10/03/24 10/04/24 23:59 23:59 23:59 23:59 Intake Total 1910.8 3045.5 2276.7 1207.5 Output Total 4510 0012 953 7257 Balance -2599.2 1245.5 1876.7 -367.5 Meds/Results Medications: Active Medications Generic Name Dose Route Start Last Admin Trade Name Morganq PRN Reason Stop Dose Admin Acetaminophen 650 mg 09/27/24 05:03 10/01/24 11:11 Acetaminophen 325 Mg Tablet FEED TUBE 650 mg Q4H PRN Administration Mild Pain (1-3) or Fever Docusate Sodium 100 mg 10/01/24 21:00 10/04/24 08:08 Docusate Sodium 100 Mg Capsule PO 100 mg Q12HR SONIA Administration Heparin Sodium (Porcine) 5,000 units 09/27/24 09:00 10/04/24 08:08 Heparin Sodium 5,000 Units/Ml Vial SUB-Q 5,000 units Q12HR SONIA Administration Levofloxacin/Dextrose 500 mg in 100 mls @ 100 mls/hr 09/30/24 21:00 10/03/24 21:26 Levaquin 500 Mg/D5w 100 Ml IVPB Infused HS SONIA Infusion Sodium Bicarbonate 100 meq/ 1,100 mls @ 50 mls/hr 10/01/24 09:00 10/04/24 08:06 Dextrose IV CONT 50 mls/hr .Q22H SONIA Administration Levetiracetam 750 mg/ Dextrose 107.5 mls @ 430 mls/hr 10/01/24 21:00 10/04/24 08:26 IVPB Infused Q12HR SONIA Infusion Lactulose 20 gm 10/01/24 10:25 10/04/24 08:08 Lactulose 20 Gm/30 Ml Udc PO 20 gm QAM SONIA Administration Lorazepam 2 mg 10/01/24 14:15 Lorazepam Inj (*Crx) 2 Mg/Ml Vial IV PUSH Q6H PRN Seizures Melatonin 5 mg 09/27/24 05:03 10/02/24 20:44 Melatonin 5 Mg Tablet PO 5 mg HS PRN Administration Insomnia Morphine Sulfate 2 mg 09/26/24 22:23 Morphine Sulfate (*Crx) 2 Mg/Ml Inj IV PUSH Q2H PRN Pain Rated 7-10 Ondansetron HCl 4 mg 09/26/24 22:23 10/03/24 17:42 Ondansetron Inj 4 Mg/2 Ml Vial IV PUSH 4 mg Q4H PRN Administration Nausea Pantoprazole Sodium 20 mg 09/27/24 09:00 10/04/24 08:02 Pantoprazole Sodium Iv 40 Mg Vial IV PUSH 20 mg Q12HR SONIA Administration Polyethylene Glycol 238 gm 10/04/24 14:00 Polyethylene Glycol 3350 238 Gm Bottle PO 10/04/24 14:01 ONCE ONE Sertraline HCl 50 mg 09/29/24 09:00 10/04/24 08:08 Sertraline Hcl 50 Mg Tablet PO 50 mg DAILY SONIA Administration Radiology Results: ITS Impressions Abdomen/Pelvis CT 09/26/24 20:50 IMPRESSION: Small bilateral pleural effusions. Chronic intra and extra hepatic bile duct dilation. Mid small bowel obstruction, transition point may represent an area of adhesion or short segment infectious, inflammatory, or ischemic colitis. Mild left hydronephrosis and urothelial enhancement may represent ascending infection/pyelitis. Cystitis. Proctitis. Small Bowel X-Ray 09/29/24 12:13 IMPRESSION: 1. Persistent mildly dilated loops of small bowel but without discrete transition point and with normal small bowel transit time consistent with resolving versus partial small bowel obstruction. Abdomen X-Ray 10/01/24 06:49 Impression: NG tube in place with relatively nonspecific bowel gas pattern. Oral contrast present in large bowel. Chest X-Ray 10/01/24 13:48 IMPRESSION: 1: NO ACUTE CARDIOPULMONARY DISEASE. Head CT 10/01/24 14:04 Impression: No acute intracranial hemorrhage or suspicious mass effect. Labs Labs: Laboratory Results - last 24 hr 10/04/24 04:17 WBC 3.3 L RBC 2.83 L Hgb 8.3 L Hct 25.8 L MCV 91.2 MCH 29.3 MCHC 32.2 RDW 16.1 H Plt Count 167 MPV 10.0 Immature Gran % (Auto) 1.8 H Neut % (Auto) 73.9 H Lymph % (Auto) 10.2 L [place] % (Auto) 11.4 H Eos % (Auto) 2.1 Baso % (Auto) 0.6 Lymph # (Auto) 0.34 L [place] # (Auto) 0.4 Eos # (Auto) 0.1 Baso # (Auto) 0.0 Abs Immat Gran (auto) 0.06 H Absolute Neuts (auto) 2.5 Absolute Nucleated RBC 0.000 Nucleated RBC % 0.0 Sodium 133 L Potassium 3.2 L Chloride 100 Carbon Dioxide 25 Anion Gap 8 BUN 15 Creatinine 0.85 Estim Creat Clear Calc 51 Estimated GFR > 60 Glucose 91 Calcium 8.0 L Magnesium 1.4 L Total Bilirubin 0.4 AST 21 ALT 9 Alkaline Phosphatase 76 Total Protein 5.0 L Albumin 2.8 L
[2024-10-04] MEDS: POTASSIUM CHLORIDE INJ 40 MEQ in SODIUM CHLORIDE 0.9% IV 500 ML 130 MEQ IVPB (11:42)
--- NOTE | 2024-10-04 11:54 | P.PNNEUR_ITS ---
Progress Note: A&P Assessment and Plan (1) Seizure as late effect of cerebrovascular accident (CVA): Code(s): I69.398 - Other sequelae of cerebral infarction; R56.9 - Unspecified convulsions Status: Acute (2) Dementia: Code(s): F03.90 - Unspecified dementia, unspecified severity, without behavioral disturbance, psychotic disturbance, mood disturbance, and anxiety Status: Chronic (3) Cerebral ventriculomegaly due to brain atrophy: Code(s): G31.9 - Degenerative disease of nervous system, unspecified Status: Acute (4) Small bowel obstruction: Code(s): K56.609 - Unspecified intestinal obstruction, unspecified as to partial versus complete obstruction Status: Acute (5) Acute renal failure: Qualifiers: Acute renal failure type: unspecified Qualified Code(s): N17.9 - Acute kidney failure, unspecified Code(s): N17.9 - Acute kidney failure, unspecified Status: Acute (6) Catheter-associated urinary tract infection: Qualifiers: Encounter type: initial encounter Indwelling urinary catheter type: indwelling urethral catheter Qualified Code(s): T83.511A - Infection and inflammatory reaction due to indwelling urethral catheter, initial encounter; N39.0 - Urinary tract infection, site not specified Code(s): T83.511A - Infection and inflammatory reaction due to indwelling urethral catheter, initial encounter; N39.0 - Urinary tract infection, site not specified Status: Acute Plan I had an opportunity to discuss this with the hospitalist Dr. Burns. I noted the patient is already on Keppra 750 mg twice a day which should be continued. When she is able to take medications by mouth this can be switched on to tablet form. CT scan of brain did not show any new findings. Chronic changes were noted greater on the right than left side. Patient is known to have dementia and has been in longterm. Subjective Date/time seen: 10/04/24 11:54 Interval history: 64 years old with history of dementia was brought in from the longterm. She did have a seizure on 10/02/2023. I spoke to the hospitalist in charge and the patient is on Keppra 750 mg IV twice a day. She has had numerous other problems including renal failure and small bowel obstruction. However she did have a CT scan of the head on 10/02/2023 which did not show any acute abnormalities. Ventricles were enlarged right more than left side proportion to the degree of atrophy. Review of Systems Review of Systems: ROS unobtainable: Yes unobtainable due to medical condition Exam Narrative: Patient unable to cooperate for detailed neurological examination however she denies any symptoms she did talk briefly. Objective Data Vital Signs Vital Signs: Vital Signs - 24 hr 10/03/24 12:00 10/03/24 12:00 10/03/24 16:00 Temperature Pulse Rate 72 89 103 H Respiratory Rate 14 Blood Pressure 128/47 L Pulse Oximetry 96 Oxygen Delivery 10/03/24 16:00 10/03/24 19:40 10/03/24 20:00 Temperature 98.3 F Pulse Rate 89 104 H Respiratory Rate 12 17 Blood Pressure 124/54 L 144/92 H Pulse Oximetry 98 97 Oxygen Delivery Room Air 10/03/24 20:00 10/03/24 23:55 10/04/24 00:00 Temperature 98.2 F Pulse Rate 105 H 95 89 Respiratory Rate 17 Blood Pressure 131/74 Pulse Oximetry 99 Oxygen Delivery 10/04/24 04:00 10/04/24 04:00 10/04/24 04:54 Temperature 98.1 F Pulse Rate 113 H 110 H 110 H Respiratory Rate 17 Blood Pressure 160/107 H 147/86 H Pulse Oximetry 98 Oxygen Delivery 10/04/24 08:00 10/04/24 08:08 10/04/24 08:08 Temperature Pulse Rate 102 H 111 H 111 H Respiratory Rate 12 14 Blood Pressure 141/60 H Pulse Oximetry 97 96 Oxygen Delivery Room Air 10/04/24 10:08 Temperature 97.2 F L Pulse Rate 103 H Respiratory Rate 16 Blood Pressure 134/75 Pulse Oximetry 99 Oxygen Delivery Intake/Output Intake/Output: Intake & Output 10/01/24 10/02/24 10/03/24 10/04/24 23:59 23:59 23:59 23:59 Intake Total 1910.8 3045.5 2276.7 1207.5 Output Total 4510 3163 967 8299 Balance -2599.2 1245.5 1876.7 -367.5 Meds/Results Medications: Active Medications Generic Name Dose Route Start Last Admin Trade Name Freq PRN Reason Stop Dose Admin Acetaminophen 650 mg 09/27/24 05:03 10/01/24 11:11 Acetaminophen 325 Mg Tablet FEED TUBE 650 mg Q4H PRN Administration Mild Pain (1-3) or Fever Docusate Sodium 100 mg 10/01/24 21:00 10/04/24 08:08 Docusate Sodium 100 Mg Capsule PO 100 mg Q12HR SONIA Administration Heparin Sodium (Porcine) 5,000 units 09/27/24 09:00 10/04/24 08:08 Heparin Sodium 5,000 Units/Ml Vial SUB-Q 5,000 units Q12HR SONIA Administration Levofloxacin/Dextrose 500 mg in 100 mls @ 100 mls/hr 09/30/24 21:00 10/03/24 21:26 Levaquin 500 Mg/D5w 100 Ml IVPB Infused HS SONIA Infusion Levetiracetam 750 mg/ Dextrose 107.5 mls @ 430 mls/hr 10/01/24 21:00 10/04/24 08:26 IVPB Infused Q12HR SONIA Infusion Potassium Chloride 40 meq/ 520 mls @ 130 mls/hr 10/04/24 11:06 10/04/24 11:42 Sodium Chloride IVPB 10/04/24 15:05 130 mls/hr ONCE ONE Administration Lactulose 20 gm 10/01/24 10:25 10/04/24 08:08 Lactulose 20 Gm/30 Ml Udc PO 20 gm QAM SONIA Administration Lorazepam 2 mg 10/01/24 14:15 Lorazepam Inj (*Crx) 2 Mg/Ml Vial IV PUSH Q6H PRN Seizures Melatonin 5 mg 09/27/24 05:03 10/02/24 20:44 Melatonin 5 Mg Tablet PO 5 mg HS PRN Administration Insomnia Morphine Sulfate 2 mg 09/26/24 22:23 Morphine Sulfate (*Crx) 2 Mg/Ml Inj IV PUSH Q2H PRN Pain Rated 7-10 Ondansetron HCl 4 mg 09/26/24 22:23 10/03/24 17:42 Ondansetron Inj 4 Mg/2 Ml Vial IV PUSH 4 mg Q4H PRN Administration Nausea Pantoprazole Sodium 20 mg 09/27/24 09:00 10/04/24 08:02 Pantoprazole Sodium Iv 40 Mg Vial IV PUSH 20 mg Q12HR SONIA Administration Polyethylene Glycol 238 gm 10/04/24 14:00 Polyethylene Glycol 3350 238 Gm Bottle PO 10/04/24 14:01 ONCE ONE Sertraline HCl 50 mg 09/29/24 09:00 10/04/24 08:08 Sertraline Hcl 50 Mg Tablet PO 50 mg DAILY SONIA Administration Radiology Results: ITS Impressions Abdomen/Pelvis CT 09/26/24 20:50 IMPRESSION: Small bilateral pleural effusions. Chronic intra and extra hepatic bile duct dilation. Mid small bowel obstruction, transition point may represent an area of adhesion or short segment infectious, inflammatory, or ischemic colitis. Mild left hydronephrosis and urothelial enhancement may represent ascending infection/pyelitis. Cystitis. Proctitis. Small Bowel X-Ray 09/29/24 12:13 IMPRESSION: 1. Persistent mildly dilated loops of small bowel but without discrete transition point and with normal small bowel transit time consistent with resolving versus partial small bowel obstruction. Abdomen X-Ray 10/01/24 06:49 Impression: NG tube in place with relatively nonspecific bowel gas pattern. Oral contrast present in large bowel. Chest X-Ray 10/01/24 13:48 IMPRESSION: 1: NO ACUTE CARDIOPULMONARY DISEASE. Head CT 10/01/24 14:04 Impression: No acute intracranial hemorrhage or suspicious mass effect. Labs Labs: Laboratory Results - last 24 hr 10/04/24 04:17 WBC 3.3 L RBC 2.83 L Hgb 8.3 L Hct 25.8 L MCV 91.2 MCH 29.3 MCHC 32.2 RDW 16.1 H Plt Count 167 MPV 10.0 Immature Gran % (Auto) 1.8 H Neut % (Auto) 73.9 H Lymph % (Auto) 10.2 L [place] % (Auto) 11.4 H Eos % (Auto) 2.1 Baso % (Auto) 0.6 Lymph # (Auto) 0.34 L [place] # (Auto) 0.4 Eos # (Auto) 0.1 Baso # (Auto) 0.0 Abs Immat Gran (auto) 0.06 H Absolute Neuts (auto) 2.5 Absolute Nucleated RBC 0.000 Nucleated RBC % 0.0 Sodium 133 L Potassium 3.2 L Chloride 100 Carbon Dioxide 25 Anion Gap 8 BUN 15 Creatinine 0.85 Estim Creat Clear Calc 51 Estimated GFR > 60 Glucose 91 Calcium 8.0 L Magnesium 1.4 L Total Bilirubin 0.4 AST 21 ALT 9 Alkaline Phosphatase 76 Total Protein 5.0 L Albumin 2.8 L
--- NOTE | 2024-10-04 14:56 | PCNFU ---
Nutrition Follow-Up Complete: 1. Inadequate oral intake related to small bowel obstruction as evidenced by NPO day 3 2. Increased protein energy intake related to wound healing as evidenced by deep tissue pressure injury to buttock Advance diet as medically able - Resolved Address nutrition needs when diet advanced - still clear liquids. NPO tomorrow Goal: Pt current nutrition is Clear liquids for colon prep, colonoscopy tomorrow. Nutrition recommendation: No new recommendations Last recorded weight is 68 kg. Bowel Motility: +5 BMs 10/03/24 Labs Reviewed: Hgb 8.3, Hct 25.8, Alb 2.8, Na 133, K+ 3.2, Mag 1.4 Meds Noted: Protonix Skin: Deep tissue pressure injury L buttocks Additional Notes: Pt supposed to be going for colonscopy. Was NPO 3 days, then advanced to full liquids, now clear liquids again with NPO tomorrow. Monitoring intakes, weights, labs, diet advancement, skin, plan of care Follow up in 2 days for NPO/CL day 5
[2024-10-04] MEDS: polyethylene glycoL 3350 238 GM BOTTLE PO (15:59)
--- NOTE | 2024-10-04 17:29 | WPDGIPROGNO ---
Progress Note: A&P Assessment and Plan (1) Fecal impaction: Code(s): K56.41 - Fecal impaction Status: Acute Assessment and Plan: hopefully she can drink bowel prep today and we can attempt colonoscopy tomorrow to assess if impaction of colon unsure if she will be agreeable tomorrow to have procedure surgery on board, continue medical treatment (2) Small bowel obstruction: Code(s): K56.609 - Unspecified intestinal obstruction, unspecified as to partial versus complete obstruction Status: Acute Assessment and Plan: resolved (3) Dementia: Code(s): F03.90 - Unspecified dementia, unspecified severity, without behavioral disturbance, psychotic disturbance, mood disturbance, and anxiety Status: Chronic Assessment and Plan: evaluated also by neurology (4) Cerebral ventriculomegaly due to brain atrophy: Code(s): G31.9 - Degenerative disease of nervous system, unspecified Status: Acute (5) Chronic anemia: Code(s): D64.9 - Anemia, unspecified Status: Chronic (6) UTI (urinary tract infection): Code(s): N39.0 - Urinary tract infection, site not specified Status: Acute Assessment and Plan: on abx Subjective Date/time seen: 10/04/24 17:29 Interval history: she did not drink much of prep yesterday and colonoscopy postponed for tomorrow, now she is drinking but mentioned to staff that is thinking about not having procedure however she is confused, also was nauseous after prep Review of Systems Review of Systems: All systems reviewed & are unremarkable except as noted in HPI and below Exam Const: General: comfortable HENMT: Face/Nose/Sinus: Normal nares present Eyes: Sclera: sclerae normal Neck: Neck: supple Resp: Effort & Inspection: normal respiratory effort Cardio: Rate: regular rate GI: Inspection: non-distended GI Palp: Yes Soft to palpation, No Tenderness to palpation present (GI) and No Guarding due to palpation present (GI) Auscultation: normal bowel sounds Urinary Catheter: Urinary Catheter: patent and draining Skin: General skin exam: normal color Neuro: Other: no obvious focal deficits she has advanced dementia Extrem: General: normal to inspection Psych: Other: unable to assess Objective Data Vital Signs Vital Signs: Vital Signs - 24 hr 10/03/24 19:40 10/03/24 20:00 10/03/24 20:00 Temperature 98.3 F Pulse Rate 104 H 105 H Respiratory Rate 17 Blood Pressure 144/92 H Pulse Oximetry 97 Oxygen Delivery Room Air 10/03/24 23:55 10/04/24 00:00 10/04/24 04:00 Temperature 98.2 F Pulse Rate 95 89 113 H Respiratory Rate 17 Blood Pressure 131/74 Pulse Oximetry 99 Oxygen Delivery 10/04/24 04:00 10/04/24 04:54 10/04/24 08:00 Temperature 98.1 F Pulse Rate 110 H 110 H 102 H Respiratory Rate 17 12 Blood Pressure 160/107 H 147/86 H 141/60 H Pulse Oximetry 98 97 Oxygen Delivery 10/04/24 08:08 10/04/24 08:08 10/04/24 10:08 Temperature 97.2 F L Pulse Rate 111 H 111 H 103 H Respiratory Rate 14 16 Blood Pressure 134/75 Pulse Oximetry 96 99 Oxygen Delivery Room Air 10/04/24 12:00 10/04/24 12:00 10/04/24 16:00 Temperature Pulse Rate 99 104 H 105 H Respiratory Rate 12 Blood Pressure 135/64 Pulse Oximetry 97 Oxygen Delivery Intake/Output Intake/Output: Intake & Output 10/01/24 10/02/24 10/03/24 10/04/24 23:59 23:59 23:59 23:59 Intake Total 1910.8 3045.5 2276.7 1527.5 Output Total 4510 4136 213 6298 Balance -2599.2 1245.5 1876.7 -922.5 Meds/Results Medications: Active Medications Generic Name Dose Route Start Last Admin Trade Name Morganq PRN Reason Stop Dose Admin Acetaminophen 650 mg 09/27/24 05:03 10/01/24 11:11 Acetaminophen 325 Mg Tablet FEED TUBE 650 mg Q4H PRN Administration Mild Pain (1-3) or Fever Docusate Sodium 100 mg 10/01/24 21:00 10/04/24 08:08 Docusate Sodium 100 Mg Capsule PO 100 mg Q12HR SONIA Administration Heparin Sodium (Porcine) 5,000 units 09/27/24 09:00 10/04/24 08:08 Heparin Sodium 5,000 Units/Ml Vial SUB-Q 5,000 units Q12HR SONIA Administration Levofloxacin/Dextrose 500 mg in 100 mls @ 100 mls/hr 09/30/24 21:00 10/03/24 21:26 Levaquin 500 Mg/D5w 100 Ml IVPB 10/04/24 23:59 Infused HS SONIA Infusion Levetiracetam 750 mg/ Dextrose 107.5 mls @ 430 mls/hr 10/01/24 21:00 10/04/24 08:26 IVPB Infused Q12HR SONIA Infusion Lactulose 20 gm 10/01/24 10:25 10/04/24 08:08 Lactulose 20 Gm/30 Ml Udc PO 20 gm QAM SONIA Administration Lorazepam 2 mg 10/01/24 14:15 Lorazepam Inj (*Crx) 2 Mg/Ml Vial IV PUSH Q6H PRN Seizures Melatonin 5 mg 09/27/24 05:03 10/02/24 20:44 Melatonin 5 Mg Tablet PO 5 mg HS PRN Administration Insomnia Morphine Sulfate 2 mg 09/26/24 22:23 Morphine Sulfate (*Crx) 2 Mg/Ml Inj IV PUSH Q2H PRN Pain Rated 7-10 Ondansetron HCl 4 mg 09/26/24 22:23 10/03/24 17:42 Ondansetron Inj 4 Mg/2 Ml Vial IV PUSH 4 mg Q4H PRN Administration Nausea Pantoprazole Sodium 20 mg 09/27/24 09:00 10/04/24 08:02 Pantoprazole Sodium Iv 40 Mg Vial IV PUSH 20 mg Q12HR SONIA Administration Sertraline HCl 50 mg 09/29/24 09:00 10/04/24 08:08 Sertraline Hcl 50 Mg Tablet PO 50 mg DAILY SONIA Administration Radiology Results: ITS Impressions Abdomen/Pelvis CT 09/26/24 20:50 IMPRESSION: Small bilateral pleural effusions. Chronic intra and extra hepatic bile duct dilation. Mid small bowel obstruction, transition point may represent an area of adhesion or short segment infectious, inflammatory, or ischemic colitis. Mild left hydronephrosis and urothelial enhancement may represent ascending infection/pyelitis. Cystitis. Proctitis. Small Bowel X-Ray 09/29/24 12:13 IMPRESSION: 1. Persistent mildly dilated loops of small bowel but without discrete transition point and with normal small bowel transit time consistent with resolving versus partial small bowel obstruction. Abdomen X-Ray 10/01/24 06:49 Impression: NG tube in place with relatively nonspecific bowel gas pattern. Oral contrast present in large bowel. Chest X-Ray 10/01/24 13:48 IMPRESSION: 1: NO ACUTE CARDIOPULMONARY DISEASE. Head CT 10/01/24 14:04 Impression: No acute intracranial hemorrhage or suspicious mass effect. Labs Labs: Laboratory Results - last 24 hr 10/04/24 04:17 WBC 3.3 L RBC 2.83 L Hgb 8.3 L Hct 25.8 L MCV 91.2 MCH 29.3 MCHC 32.2 RDW 16.1 H Plt Count 167 MPV 10.0 Immature Gran % (Auto) 1.8 H Neut % (Auto) 73.9 H Lymph % (Auto) 10.2 L [place] % (Auto) 11.4 H Eos % (Auto) 2.1 Baso % (Auto) 0.6 Lymph # (Auto) 0.34 L [place] # (Auto) 0.4 Eos # (Auto) 0.1 Baso # (Auto) 0.0 Abs Immat Gran (auto) 0.06 H Absolute Neuts (auto) 2.5 Absolute Nucleated RBC 0.000 Nucleated RBC % 0.0 Sodium 133 L Potassium 3.2 L Chloride 100 Carbon Dioxide 25 Anion Gap 8 BUN 15 Creatinine 0.85 Estim Creat Clear Calc 51 Estimated GFR > 60 Glucose 91 Calcium 8.0 L Magnesium 1.4 L Total Bilirubin 0.4 AST 21 ALT 9 Alkaline Phosphatase 76 Total Protein 5.0 L Albumin 2.8 L
[2024-10-04] MEDS: MAGNESIUM SULF 2 GM/WATER 50ML 2 GM/50 ML BAG IVPB (19:36)
[2024-10-04] MEDS: levoFLOXacin 500 MG/D5W 100 ML 500 MG/100 ML BAG 100 MG IVPB (20:56)
[2024-10-05] VITALS (9 sets, daily range): BP systolic 113–146; BP diastolic 58–71; PULSE 95–127; RESP 18–19; TEMP 36.1–36.9; O2SAT 97–100
[2024-10-05 05:22] LABS: Alanine Aminotransferase 10 U/L (6-35); Albumin Level 2.9 g/dL (3.5-5.1); Alkaline Phosphatase 79 U/L (38-126); Anion Gap 8 mmol/L (4-12); Aspartate Amino Transferase 23 U/L (14-36); Bilirubin,Total 0.6 mg/dL (0.2-1.3); Blood Urea Nitrogen 18 mg/dL (7-17); Calcium 8.2 mg/dL (8.4-10.2); Carbon Dioxide 22 mmol/L (22-30); Chloride 99 mmol/L (98-107); Estimated CRCL calculation 51 ml/min; Estimated Glomerular Filt Rate > 60; Glucose 80 mg/dL (65-110); Potassium 3.5 mmol/L (3.4-5.0); Sodium 129 mmol/L (137-145)
[2024-10-05 05:25] LABS: Basophils Percent Auto 0.9 % (0.2-1.2); Eosinophils Absolute Auto 0.1 K/mm3 (0-0.3); Eosinophils Percent Auto 3.3 % (0-4.4); Hematocrit 27.2 % (37.0-47.0); Hemoglobin 8.4 g/dL (12.0-15.0); Immature Granulocyte Absolute 0.08 K/mm3 (0.00-0.031); Immature Granulocyte Percent A 2.4 % (0-0.5); Lymphocytes Absolute Auto 0.75 K/mm3 (0.9-3.2); Lymphocytes Percent Auto 22.3 % (18.3-44.2); Mean Corpuscular HGB Conc 30.9 g/dl (32-36); Mean Corpuscular Hemoglobin 29.1 pg (26-34); Mean Corpuscular Volume 94.1 fl (80-100); Monocytes Absolute Auto 0.5 K/mm3 (0.1-0.6); Neutrophils Absolute Auto 1.9 K/mm3 (1.3-6.7); Neutrophils Percent Auto 57.1 % (45.5-73.1); Platelet Count Result 179 k/mm3 (150-375); Red Blood Count 2.89 M/mm3 (4.2-5.4); Red Cell Distribution Width 16.3 % (11.5-14.5); White Blood Count 3.4 K/mm3 (4.5-10.0)
[2024-10-05] MEDS: LACTULOSE 20 GM/30 ML UDC PO ×2 (08:35→20:08)
[2024-10-05] MEDS: PANTOPRAZOLE SODIUM IV 40 MG VIAL 20 MG IV PUSH ×2 (08:35→20:07)
[2024-10-05] MEDS: levETIRAcetam IV 750 MG in DEXTROSE 5% 100 ML 430 MG IVPB ×2 (08:37→20:11)
[2024-10-05] MEDS: SERTRALINE HCL 50 MG TABLET PO (08:40)
[2024-10-05] MEDS: DOCUSATE SODIUM 100 MG CAPSULE PO ×2 (08:40→20:04)
[2024-10-05] MEDS: HEPARIN SODIUM 5,000 UNITS/ML VIAL 5000 UNITS SUB-Q ×2 (08:40→20:05)
--- NOTE | 2024-10-05 12:42 | PM.IMPN ---
Progress Note: A&P Assessment and Plan (1) Small bowel obstruction: Code(s): K56.609 - Unspecified intestinal obstruction, unspecified as to partial versus complete obstruction Status: Acute (2) Acute renal failure: Qualifiers: Acute renal failure type: unspecified Qualified Code(s): N17.9 - Acute kidney failure, unspecified Code(s): N17.9 - Acute kidney failure, unspecified Status: Acute (3) Catheter-associated urinary tract infection: Qualifiers: Encounter type: initial encounter Indwelling urinary catheter type: indwelling urethral catheter Qualified Code(s): T83.511A - Infection and inflammatory reaction due to indwelling urethral catheter, initial encounter; N39.0 - Urinary tract infection, site not specified Code(s): T83.511A - Infection and inflammatory reaction due to indwelling urethral catheter, initial encounter; N39.0 - Urinary tract infection, site not specified Status: Acute Plan Patsy Hugo is a 64-year-old female with a medical history significant for dementia, sedentary status, pressure ulcers around the sacrum, constipation, depression, GERD, dyslipidemia, chronic indwelling White catheter A resident of [facility], she was recently evaluated and managed for sepsis, fecal impaction an SBO (09/16-02/07) and discharged . staff were concerned about abdominal pain with nausea and vomiting; symptoms aggravated by meals/fluids, alleviated by fasting; associated with some anxiety and restlessness. # Small bowel obstruction and fecal impaction CT scan also shows a large amount of stool in her right colon, which could be contributing to or causing this issue. Hypaque enema done Pulled NG tube out overnight and replaced. KUB Findings: Large amount of retained fecal material in the right colon. There is dilated small bowel throughout the abdomen, consistent with obstruction. There is an IVC filter present, position unchanged. No abnormal calcifications. There is moderate lumbar spondylosis with levoscoliosis. Planned colonoscopy however difficult and incomplete bowel prep protein from getting this accomplished. FMS in place to facilitate this. # seizures 10/01/2024 aborted with IV Ativan. Loaded with Keppra and will continue Keppra as ordered. Neurology consulted. CT head was negative. # UTI (urinary tract infection): Urine culture grew pseudomonas aeruginosa. Sensitivities to all abx Switch from Cefepime 2 gram IVPB q 12. Switched to Levaquin 500 mg IV daily. Completes the course # Constipation AND FECAL IMPACTION: continue with NG tube decompression and bowel rest now and continue IV fluids. Hypaque enema PRN # Hypertension: Blood pressure is well control # Hypokalemia: Potassium Chloride 40 meq IVPB PRN to keep K wnl # Hypomagnesemia: corrected # Metabolic acidosis switch to bicarb gtt # anemia: no signs of bleeding. transfusion to keep Hb > 7. H&H remained stable . needed transfusion last admission. # bilateral hydronephrosis due to mass effect on distal ureter by fecal impaction. Recheck ultrasound with mild persistent right hydronephrosis. fu with urology as op basis. this time ct with left mild hydronephrosis Chronic White catheter Neurogenic bladder History of ulcerative colitis GERD Hypertension Hyperlipidemia History of DVT Chronic anemia Dementia DVT Prophylaxis: heparin sq Code Status: Full code care home resident Subjective Date/time seen: 10/05/24 12:42 Interval history: Events noted. Has a fecal management system due to his bowel prep. 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 This will let me examine her Review of Systems Review of Systems: All systems reviewed & are unremarkable except as noted in HPI and below Exam Narrative: GENERAL: Irritable in no acute distress. Well-nourished. - EYES: EOMI. Anicteric. - HENT: Moist mucous membranes. - LUNGS: Clear to auscultation bilaterally, no wheezing, rhonchi, or rales. - CARDIOVASCULAR: Regular rate and rhythm. No murmur. No JVD. - ABDOMEN: Soft, non-tender and non-distended. No palpable masses. - EXTREMITIES: No edema. Peripheral pulses 2+. Non-tender. - NEUROLOGIC: No focal neurological deficits. CN II-XII grossly intact. - PSYCHIATRIC: Awake, Alert and conversant. Appropriate mood and affect. - SKIN: No rashes or lesions. Warm. - LYMPH: No cervical lymphadenopathy. Objective Data Vital Signs Vital Signs: Vital Signs - 24 hr 10/04/24 16:00 10/04/24 16:00 10/04/24 19:50 Temperature 98.4 F Pulse Rate 105 H 107 H 106 H Respiratory Rate 16 18 Blood Pressure 139/79 140/72 Pulse Oximetry 100 100 Oxygen Delivery 10/04/24 20:00 10/04/24 20:00 10/05/24 00:00 Temperature 98.3 F Pulse Rate 120 H 104 H Respiratory Rate 18 Blood Pressure 132/61 Pulse Oximetry 97 Oxygen Delivery Room Air 10/05/24 00:00 10/05/24 03:21 10/05/24 04:00 Temperature 98.4 F Pulse Rate 103 H 107 H 103 H Respiratory Rate 18 Blood Pressure 129/59 L Pulse Oximetry 100 Oxygen Delivery 10/05/24 08:00 10/05/24 08:40 10/05/24 08:40 Temperature 97.8 F Pulse Rate 97 99 Respiratory Rate 19 Blood Pressure 128/58 L Pulse Oximetry 100 Oxygen Delivery Room Air 10/05/24 12:00 Temperature Pulse Rate 95 Respiratory Rate Blood Pressure Pulse Oximetry Oxygen Delivery Intake/Output Intake/Output: Intake & Output 10/02/24 10/03/24 10/04/24 10/05/24 23:59 23:59 23:59 23:59 Intake Total 3045.5 2276.7 2125.0 325.8 Output Total 7842 863 3336 900 Balance 1245.5 1876.7 -325.0 -574.2 Meds/Results Medications: Active Medications Generic Name Dose Route Start Last Admin Trade Name Freq PRN Reason Stop Dose Admin Acetaminophen 650 mg 09/27/24 05:03 10/01/24 11:11 Acetaminophen 325 Mg Tablet FEED TUBE 650 mg Q4H PRN Administration Mild Pain (1-3) or Fever Docusate Sodium 100 mg 10/01/24 21:00 10/05/24 08:40 Docusate Sodium 100 Mg Capsule PO 100 mg Q12HR SONIA Administration Heparin Sodium (Porcine) 5,000 units 09/27/24 09:00 10/05/24 08:40 Heparin Sodium 5,000 Units/Ml Vial SUB-Q 5,000 units Q12HR SONIA Administration Levetiracetam 750 mg/ Dextrose 107.5 mls @ 430 mls/hr 10/01/24 21:00 10/05/24 08:42 IVPB 430 mls/hr Q12HR SONIA Infusion Lactulose 20 gm 10/05/24 21:00 Lactulose 20 Gm/30 Ml Udc PO Q12H SONIA Lorazepam 2 mg 10/01/24 14:15 Lorazepam Inj (*Crx) 2 Mg/Ml Vial IV PUSH Q6H PRN Seizures Melatonin 5 mg 09/27/24 05:03 10/02/24 20:44 Melatonin 5 Mg Tablet PO 5 mg HS PRN Administration Insomnia Morphine Sulfate 2 mg 09/26/24 22:23 Morphine Sulfate (*Crx) 2 Mg/Ml Inj IV PUSH Q2H PRN Pain Rated 7-10 Ondansetron HCl 4 mg 09/26/24 22:23 10/03/24 17:42 Ondansetron Inj 4 Mg/2 Ml Vial IV PUSH 4 mg Q4H PRN Administration Nausea Pantoprazole Sodium 20 mg 09/27/24 09:00 10/05/24 08:35 Pantoprazole Sodium Iv 40 Mg Vial IV PUSH 20 mg Q12HR SONIA Administration Polyethylene Glycol 17 gm 10/06/24 09:00 Polyethylene Glycol 3350 17 Gm Powd.Pack PO QAM SONIA Sertraline HCl 50 mg 09/29/24 09:00 10/05/24 08:40 Sertraline Hcl 50 Mg Tablet PO 50 mg DAILY SONIA Administration Radiology Results: ITS Impressions Abdomen/Pelvis CT 09/26/24 20:50 IMPRESSION: Small bilateral pleural effusions. Chronic intra and extra hepatic bile duct dilation. Mid small bowel obstruction, transition point may represent an area of adhesion or short segment infectious, inflammatory, or ischemic colitis. Mild left hydronephrosis and urothelial enhancement may represent ascending infection/pyelitis. Cystitis. Proctitis. Small Bowel X-Ray 09/29/24 12:13 IMPRESSION: 1. Persistent mildly dilated loops of small bowel but without discrete transition point and with normal small bowel transit time consistent with resolving versus partial small bowel obstruction. Abdomen X-Ray 10/01/24 06:49 Impression: NG tube in place with relatively nonspecific bowel gas pattern. Oral contrast present in large bowel. Chest X-Ray 10/01/24 13:48 IMPRESSION: 1: NO ACUTE CARDIOPULMONARY DISEASE. Head CT 10/01/24 14:04 Impression: No acute intracranial hemorrhage or suspicious mass effect. Labs Labs: Laboratory Results - last 24 hr 10/05/24 03:52 WBC 3.4 L RBC 2.89 L Hgb 8.4 L Hct 27.2 L MCV 94.1 MCH 29.1 MCHC 30.9 L RDW 16.3 H Plt Count 179 MPV 11.0 H Immature Gran % (Auto) 2.4 H Neut % (Auto) 57.1 Lymph % (Auto) 22.3 [place] % (Auto) 14.0 H Eos % (Auto) 3.3 Baso % (Auto) 0.9 Lymph # (Auto) 0.75 L [place] # (Auto) 0.5 Eos # (Auto) 0.1 Baso # (Auto) 0.0 Abs Immat Gran (auto) 0.08 H Absolute Neuts (auto) 1.9 Absolute Nucleated RBC 0.000 Nucleated RBC % 0.0 Sodium 129 L Potassium 3.5 Chloride 99 Carbon Dioxide 22 Anion Gap 8 BUN 18 H Creatinine 0.85 Estim Creat Clear Calc 51 Estimated GFR > 60 Glucose 80 Calcium 8.2 L Magnesium 2.0 Total Bilirubin 0.6 AST 23 ALT 10 Alkaline Phosphatase 79 Total Protein 5.0 L Albumin 2.9 L
[2024-10-05] MEDS: ACETAMINOPHEN 325 MG TABLET 650 MG FEED TUBE (13:45)
--- NOTE | 2024-10-05 15:54 | WPDGIPROGNO ---
Progress Note: A&P Assessment and Plan (1) Fecal impaction: Code(s): K56.41 - Fecal impaction Status: Acute Assessment and Plan: this time patient did not drink bowel prep and she is against having any procedure recommend medical treatment with laxatives as needed will follow as needed no need of surgery (2) Small bowel obstruction: Code(s): K56.609 - Unspecified intestinal obstruction, unspecified as to partial versus complete obstruction Status: Acute Assessment and Plan: resolved (3) Dementia: Code(s): F03.90 - Unspecified dementia, unspecified severity, without behavioral disturbance, psychotic disturbance, mood disturbance, and anxiety Status: Chronic Assessment and Plan: advanced dementia evaluated also by neurology (4) Cerebral ventriculomegaly due to brain atrophy: Code(s): G31.9 - Degenerative disease of nervous system, unspecified Status: Acute (5) Chronic anemia: Code(s): D64.9 - Anemia, unspecified Status: Chronic Subjective Date/time seen: 10/05/24 15:54 Interval history: patient did not drink much of bowel prep and she was adamant about not getting procedure therefore colonoscopy canceled no new events per staff Review of Systems Review of Systems: All systems reviewed & are unremarkable except as noted in HPI and below Exam Const: General: comfortable HENMT: Face/Nose/Sinus: Normal nares present Eyes: Sclera: sclerae normal Neck: Neck: supple Resp: Effort & Inspection: normal respiratory effort Cardio: Rate: regular rate GI: Inspection: non-distended GI Palp: Yes Soft to palpation, No Tenderness to palpation present (GI) and No Guarding due to palpation present (GI) Auscultation: normal bowel sounds Urinary Catheter: Urinary Catheter: patent and draining Skin: General skin exam: normal color Neuro: Other: no obvious focal deficits she has advanced dementia Extrem: General: normal to inspection Psych: Other: unable to assess Objective Data Vital Signs Vital Signs: Vital Signs - 24 hr 10/04/24 16:00 10/04/24 16:00 10/04/24 19:50 Temperature 98.4 F Pulse Rate 105 H 107 H 106 H Respiratory Rate 16 18 Blood Pressure 139/79 140/72 Pulse Oximetry 100 100 Oxygen Delivery 10/04/24 20:00 10/04/24 20:00 10/05/24 00:00 Temperature 98.3 F Pulse Rate 120 H 104 H Respiratory Rate 18 Blood Pressure 132/61 Pulse Oximetry 97 Oxygen Delivery Room Air 10/05/24 00:00 10/05/24 03:21 10/05/24 04:00 Temperature 98.4 F Pulse Rate 103 H 107 H 103 H Respiratory Rate 18 Blood Pressure 129/59 L Pulse Oximetry 100 Oxygen Delivery 10/05/24 08:00 10/05/24 08:40 10/05/24 08:40 Temperature 97.8 F Pulse Rate 97 99 Respiratory Rate 19 Blood Pressure 128/58 L Pulse Oximetry 100 Oxygen Delivery Room Air 10/05/24 12:00 10/05/24 12:00 Temperature 98 F Pulse Rate 95 95 Respiratory Rate 19 Blood Pressure 113/61 Pulse Oximetry 98 Oxygen Delivery Intake/Output Intake/Output: Intake & Output 10/02/24 10/03/24 10/04/24 10/05/24 23:59 23:59 23:59 23:59 Intake Total 3045.5 2276.7 2125.0 547.8 Output Total 0510 049 1160 900 Balance 1245.5 1876.7 -325.0 -352.2 Meds/Results Medications: Active Medications Generic Name Dose Route Start Last Admin Trade Name Freq PRN Reason Stop Dose Admin Acetaminophen 650 mg 09/27/24 05:03 10/05/24 13:45 Acetaminophen 325 Mg Tablet FEED TUBE 650 mg Q4H PRN Administration Mild Pain (1-3) or Fever Docusate Sodium 100 mg 10/01/24 21:00 10/05/24 08:40 Docusate Sodium 100 Mg Capsule PO 100 mg Q12HR SONIA Administration Heparin Sodium (Porcine) 5,000 units 09/27/24 09:00 10/05/24 08:40 Heparin Sodium 5,000 Units/Ml Vial SUB-Q 5,000 units Q12HR SONIA Administration Levetiracetam 750 mg/ Dextrose 107.5 mls @ 430 mls/hr 10/01/24 21:00 10/05/24 08:42 IVPB 430 mls/hr Q12HR SONIA Infusion Lactulose 20 gm 10/05/24 21:00 Lactulose 20 Gm/30 Ml Udc PO Q12H SONIA Lorazepam 2 mg 10/01/24 14:15 Lorazepam Inj (*Crx) 2 Mg/Ml Vial IV PUSH Q6H PRN Seizures Melatonin 5 mg 09/27/24 05:03 10/02/24 20:44 Melatonin 5 Mg Tablet PO 5 mg HS PRN Administration Insomnia Morphine Sulfate 2 mg 09/26/24 22:23 Morphine Sulfate (*Crx) 2 Mg/Ml Inj IV PUSH Q2H PRN Pain Rated 7-10 Ondansetron HCl 4 mg 09/26/24 22:23 10/03/24 17:42 Ondansetron Inj 4 Mg/2 Ml Vial IV PUSH 4 mg Q4H PRN Administration Nausea Pantoprazole Sodium 20 mg 09/27/24 09:00 10/05/24 08:35 Pantoprazole Sodium Iv 40 Mg Vial IV PUSH 20 mg Q12HR SONIA Administration Polyethylene Glycol 17 gm 10/06/24 09:00 Polyethylene Glycol 3350 17 Gm Powd.Pack PO QAM SONIA Sertraline HCl 50 mg 09/29/24 09:00 10/05/24 08:40 Sertraline Hcl 50 Mg Tablet PO 50 mg DAILY SONIA Administration Radiology Results: ITS Impressions Abdomen/Pelvis CT 09/26/24 20:50 IMPRESSION: Small bilateral pleural effusions. Chronic intra and extra hepatic bile duct dilation. Mid small bowel obstruction, transition point may represent an area of adhesion or short segment infectious, inflammatory, or ischemic colitis. Mild left hydronephrosis and urothelial enhancement may represent ascending infection/pyelitis. Cystitis. Proctitis. Small Bowel X-Ray 09/29/24 12:13 IMPRESSION: 1. Persistent mildly dilated loops of small bowel but without discrete transition point and with normal small bowel transit time consistent with resolving versus partial small bowel obstruction. Abdomen X-Ray 10/01/24 06:49 Impression: NG tube in place with relatively nonspecific bowel gas pattern. Oral contrast present in large bowel. Chest X-Ray 10/01/24 13:48 IMPRESSION: 1: NO ACUTE CARDIOPULMONARY DISEASE. Head CT 10/01/24 14:04 Impression: No acute intracranial hemorrhage or suspicious mass effect. Labs Labs: Laboratory Results - last 24 hr 10/05/24 03:52 WBC 3.4 L RBC 2.89 L Hgb 8.4 L Hct 27.2 L MCV 94.1 MCH 29.1 MCHC 30.9 L RDW 16.3 H Plt Count 179 MPV 11.0 H Immature Gran % (Auto) 2.4 H Neut % (Auto) 57.1 Lymph % (Auto) 22.3 [place] % (Auto) 14.0 H Eos % (Auto) 3.3 Baso % (Auto) 0.9 Lymph # (Auto) 0.75 L [place] # (Auto) 0.5 Eos # (Auto) 0.1 Baso # (Auto) 0.0 Abs Immat Gran (auto) 0.08 H Absolute Neuts (auto) 1.9 Absolute Nucleated RBC 0.000 Nucleated RBC % 0.0 Sodium 129 L Potassium 3.5 Chloride 99 Carbon Dioxide 22 Anion Gap 8 BUN 18 H Creatinine 0.85 Estim Creat Clear Calc 51 Estimated GFR > 60 Glucose 80 Calcium 8.2 L Magnesium 2.0 Total Bilirubin 0.6 AST 23 ALT 10 Alkaline Phosphatase 79 Total Protein 5.0 L Albumin 2.9 L
[2024-10-05] MEDS: MORPHINE SULFATE (*CRX) 2 MG/ML INJ IV PUSH (20:33)
[2024-10-06] VITALS (9 sets, daily range): BP systolic 134–149; BP diastolic 66–85; PULSE 70–115; RESP 16–20; TEMP 36.4–37; O2SAT 95–99
[2024-10-06 05:43] LABS: Basophils Percent Auto 0.8 % (0.2-1.2); Eosinophils Absolute Auto 0.2 K/mm3 (0-0.3); Eosinophils Percent Auto 3.1 % (0-4.4); Hematocrit 27.3 % (37.0-47.0); Hemoglobin 8.5 g/dL (12.0-15.0); Immature Granulocyte Absolute 0.09 K/mm3 (0.00-0.031); Immature Granulocyte Percent A 1.9 % (0-0.5); Lymphocytes Percent Auto 10.4 % (18.3-44.2); Mean Corpuscular HGB Conc 31.1 g/dl (32-36); Mean Corpuscular Hemoglobin 29.2 pg (26-34); Mean Corpuscular Volume 93.8 fl (80-100); Mean Platelet Volume 10.2 fl (7.4-10.4); Monocytes Absolute Auto 0.6 K/mm3 (0.1-0.6); Monocytes Percent Auto 13.1 % (2.6-8.5); Neutrophils Absolute Auto 3.4 K/mm3 (1.3-6.7); Neutrophils Percent Auto 70.7 % (45.5-73.1); Platelet Count Result 162 k/mm3 (150-375); Red Blood Count 2.91 M/mm3 (4.2-5.4); Red Cell Distribution Width 15.9 % (11.5-14.5); White Blood Count 4.8 K/mm3 (4.5-10.0)
[2024-10-06 06:03] LABS: Alanine Aminotransferase 14 U/L (6-35); Albumin Level 2.8 g/dL (3.5-5.1); Alkaline Phosphatase 87 U/L (38-126); Anion Gap 7 mmol/L (4-12); Aspartate Amino Transferase 27 U/L (14-36); Bilirubin,Total 0.4 mg/dL (0.2-1.3); Blood Urea Nitrogen 14 mg/dL (7-17); Calcium 8.4 mg/dL (8.4-10.2); Carbon Dioxide 25 mmol/L (22-30); Chloride 102 mmol/L (98-107); Estimated CRCL calculation 46 ml/min; Estimated Glomerular Filt Rate 59; Glucose 101 mg/dL (65-110); Potassium 3.1 mmol/L (3.4-5.0); Sodium 134 mmol/L (137-145)
[2024-10-06] MEDS: levETIRAcetam IV 750 MG in DEXTROSE 5% 100 ML 430 MG IVPB ×2 (09:00→20:17)
[2024-10-06] MEDS: HEPARIN SODIUM 5,000 UNITS/ML VIAL 5000 UNITS SUB-Q ×2 (09:25→20:18)
[2024-10-06] MEDS: PANTOPRAZOLE SODIUM IV 40 MG VIAL 20 MG IV PUSH ×2 (09:27→20:20)
[2024-10-06] MEDS: LACTULOSE 20 GM/30 ML UDC PO ×2 (09:30→20:18)
[2024-10-06] MEDS: DOCUSATE SODIUM 100 MG CAPSULE PO ×2 (09:30→20:18)
[2024-10-06] MEDS: SERTRALINE HCL 50 MG TABLET PO (09:30)
[2024-10-06] MEDS: polyethylene glycoL 3350 17 GM POWD.PACK PO (09:32)
--- NOTE | 2024-10-06 10:14 | P.PNIM_ITS ---
Progress Note: A&P Assessment and Plan (1) Small bowel obstruction: Code(s): K56.609 - Unspecified intestinal obstruction, unspecified as to partial versus complete obstruction Status: Acute (2) Acute renal failure: Qualifiers: Acute renal failure type: unspecified Qualified Code(s): N17.9 - Acute kidney failure, unspecified Code(s): N17.9 - Acute kidney failure, unspecified Status: Acute (3) Catheter-associated urinary tract infection: Qualifiers: Encounter type: initial encounter Indwelling urinary catheter type: indwelling urethral catheter Qualified Code(s): T83.511A - Infection and inflammatory reaction due to indwelling urethral catheter, initial encounter; N39.0 - Urinary tract infection, site not specified Code(s): T83.511A - Infection and inflammatory reaction due to indwelling urethral catheter, initial encounter; N39.0 - Urinary tract infection, site not specified Status: Acute Plan Patsy Hugo is a 64-year-old female with a medical history significant for dementia, sedentary status, pressure ulcers around the sacrum, constipation, depression, GERD, dyslipidemia, chronic indwelling White catheter A resident of [facility], she was recently evaluated and managed for sepsis, fecal impaction an SBO (09/16-02/07) and discharged . staff were concerned about abdominal pain with nausea and vomiting; symptoms aggravated by meals/fluids, alleviated by fasting; associated with some anxiety and restlessness. Small bowel obstruction and fecal impaction CT scan also shows a large amount of stool in her right colon, which could be contributing to or causing this issue. Hypaque enema done resolved seizures 10/01/2024 aborted with IV Ativan. Loaded with Keppra and will continue Keppra as ordered. Neurology consulted. CT head was negative. UTI (urinary tract infection): Urine culture grew pseudomonas aeruginosa. Sensitivities to all abx Switch from Cefepime 2 gram IVPB q 12. Switched to Levaquin 500 mg IV daily. Completes the course Constipation AND FECAL IMPACTION: Hypaque enema PRN has loose stools f/u c diff Hypertension: Blood pressure is well control Hypokalemia: Potassium Chloride 40 meq IVPB PRN to keep K wnl # Hypomagnesemia: corrected Metabolic acidosis switched to bicarb gtt, corrected anemia: no signs of bleeding. transfusion to keep Hb > 7. H&H remained stable . needed transfusion last admission. bilateral hydronephrosis due to mass effect on distal ureter by fecal impact ion. Recheck ultrasound with mild persistent right hydronephrosis. fu with urology as op basis. 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 Well-nourished. - EYES: EOMI. Anicteric. - HENT: Moist mucous membranes. - LUNGS: Clear to auscultation bilateral ly, no wheezing, rhonchi, or rales. - CARDIOVASCULAR: Regular rate and rhyth m. No murmur. No JVD. - ABDOMEN: Soft, non-tender and non-dist ended. No palpable masses. White catheter in-situ - EXTREMITIES: No edema. Peripheral puls es 2+. Non-tender. - NEUROLOGIC: No focal neurological defi cits. CN II-XII grossly intact. - PSYCHIATRIC: Awake, Alert and conversa nt. Appropriate mood and affect. - SKIN: No rashes or lesions. Warm. - LYMPH: No cervical lymphadenopathy. Objective Data Vital Signs Vital Signs: Vital Signs - 24 hr 10/05/24 12:00 10/05/24 12:00 10/05/24 16:00 Temperature 98 F Pulse Rate 95 95 97 Respiratory Rate 19 Blood Pressure 113/61 Pulse Oximetry 98 Oxygen Delivery 10/05/24 16:00 10/05/24 20:00 10/05/24 20:00 Temperature 97.6 F 97.7 F Pulse Rate 96 102 H 100 Respiratory Rate 19 18 Blood Pressure 118/60 124/60 Pulse Oximetry 97 98 Oxygen Delivery 10/05/24 20:00 10/05/24 23:57 10/06/24 00:00 Temperature 97.0 F L Pulse Rate 127 H 115 H Respiratory Rate 18 Blood Pressure 146/71 H Pulse Oximetry 99 Oxygen Delivery Room Air 10/06/24 03:26 10/06/24 04:00 10/06/24 08:00 Temperature 97.7 F 97.6 F Pulse Rate 97 94 84 Respiratory Rate 18 18 Blood Pressure 149/85 H 146/76 H Pulse Oximetry 97 96 Oxygen Delivery Intake/Output Intake/Output: Intake & Output 10/03/24 10/04/24 10/05/24 10/06/24 23:59 23:59 23:59 23:59 Intake Total 2276.7 2645.0 967.0 520 Output Total 400 2450 2140 200 Balance 1876.7 195.0 -1173.0 320 Meds/Results Medications: Active Medications Generic Name Dose Route Start Last Admin Trade Name Freq PRN Reason Stop Dose Admin Acetaminophen 650 mg 09/27/24 05:03 10/05/24 13:45 Acetaminophen 325 Mg Tablet FEED TUBE 650 mg Q4H PRN Administration Mild Pain (1-3) or Fever Docusate Sodium 100 mg 10/01/24 21:00 10/06/24 09:30 Docusate Sodium 100 Mg Capsule PO 100 mg Q12HR SONIA Administration Heparin Sodium (Porcine) 5,000 units 09/27/24 09:00 10/06/24 09:25 Heparin Sodium 5,000 Units/Ml Vial SUB-Q 5,000 units Q12HR SONIA Administration Levetiracetam 750 mg/ Dextrose 107.5 mls @ 430 mls/hr 10/01/24 21:00 10/05/24 20:26 IVPB Infused Q12HR SONIA Infusion Lactulose 20 gm 10/05/24 21:00 10/06/24 09:30 Lactulose 20 Gm/30 Ml Udc PO 20 gm Q12H SONIA Administration Lorazepam 2 mg 10/01/24 14:15 Lorazepam Inj (*Crx) 2 Mg/Ml Vial IV PUSH Q6H PRN Seizures Melatonin 5 mg 09/27/24 05:03 10/02/24 20:44 Melatonin 5 Mg Tablet PO 5 mg HS PRN Administration Insomnia Miscellaneous Information 0 each 10/05/24 00:01 Morphine Renew Order If Still Needed Or Will Auto D/C XX 11/04/24 00:00 CLARIFY SONIA Morphine Sulfate 2 mg 09/26/24 22:23 10/05/24 20:33 Morphine Sulfate (*Crx) 2 Mg/Ml Inj IV PUSH 2 mg Q2H PRN Administration Pain Rated 7-10 Ondansetron HCl 4 mg 09/26/24 22:23 10/03/24 17:42 Ondansetron Inj 4 Mg/2 Ml Vial IV PUSH 4 mg Q4H PRN Administration Nausea Pantoprazole Sodium 20 mg 09/27/24 09:00 10/06/24 09:27 Pantoprazole Sodium Iv 40 Mg Vial IV PUSH 20 mg Q12HR SONIA Administration Polyethylene Glycol 17 gm 10/06/24 09:00 10/06/24 09:32 Polyethylene Glycol 3350 17 Gm Powd.Pack PO 17 gm QAM SONIA Administration Sertraline HCl 50 mg 09/29/24 09:00 10/06/24 09:30 Sertraline Hcl 50 Mg Tablet PO 50 mg DAILY SONIA Administration Radiology Results: ITS Impressions Abdomen/Pelvis CT 09/26/24 20:50 IMPRESSION: Small bilateral pleural effusions. Chronic intra and extra hepatic bile duct dilation. Mid small bowel obstruction, transition point may represent an area of adhesion or short segment infectious, inflammatory, or ischemic colitis. Mild left hydronephrosis and urothelial enhancement may represent ascending infection/pyelitis. Cystitis. Proctitis. Small Bowel X-Ray 09/29/24 12:13 IMPRESSION: 1. Persistent mildly dilated loops of small bowel but without discrete transition point and with normal small bowel transit time consistent with resolving versus partial small bowel obstruction. Abdomen X-Ray 10/01/24 06:49 Impression: NG tube in place with relatively nonspecific bowel gas pattern. Oral contrast present in large bowel. Chest X-Ray 10/01/24 13:48 IMPRESSION: 1: NO ACUTE CARDIOPULMONARY DISEASE. Head CT 10/01/24 14:04 Impression: No acute intracranial hemorrhage or suspicious mass effect. Labs Labs: Laboratory Results - last 24 hr 10/06/24 05:07 WBC 4.8 RBC 2.91 L Hgb 8.5 L Hct 27.3 L MCV 93.8 MCH 29.2 MCHC 31.1 L RDW 15.9 H Plt Count 162 MPV 10.2 Immature Gran % (Auto) 1.9 H Neut % (Auto) 70.7 Lymph % (Auto) 10.4 L [place] % (Auto) 13.1 H Eos % (Auto) 3.1 Baso % (Auto) 0.8 Lymph # (Auto) 0.50 L [place] # (Auto) 0.6 Eos # (Auto) 0.2 Baso # (Auto) 0.0 Abs Immat Gran (auto) 0.09 H Absolute Neuts (auto) 3.4 Absolute Nucleated RBC 0.000 Nucleated RBC % 0.0 Sodium 134 L Potassium 3.1 L Chloride 102 Carbon Dioxide 25 Anion Gap 7 BUN 14 Creatinine 0.95 Estim Creat Clear Calc 46 Estimated GFR 59 Glucose 101 Calcium 8.4 Total Bilirubin 0.4 AST 27 ALT 14 Alkaline Phosphatase 87 Total Protein 5.0 L Albumin 2.8 L
[2024-10-06] MEDS: ACETAMINOPHEN 325 MG TABLET 650 MG FEED TUBE (16:59)
[2024-10-06] MEDS: METOCLOPRAMIDE HCL INJ 10 MG/2 ML VIAL IV PUSH ×2 (17:00→20:18)
[2024-10-07] VITALS (8 sets, daily range): BP systolic 106–150; BP diastolic 52–92; PULSE 84–114; RESP 16–18; TEMP 36.6–37.2; O2SAT 96–99
[2024-10-07 03:19] LABS: Toxigenic C. Diff NEGATIVE (NEGATIVE)
[2024-10-07 05:47] LABS: Basophils Percent Auto 1.3 % (0.2-1.2); Eosinophils Absolute Auto 0.2 K/mm3 (0-0.3); Eosinophils Percent Auto 5.1 % (0-4.4); Hematocrit 27.6 % (37.0-47.0); Hemoglobin 8.5 g/dL (12.0-15.0); Immature Granulocyte Absolute 0.08 K/mm3 (0.00-0.031); Immature Granulocyte Percent A 2.7 % (0-0.5); Lymphocytes Absolute Auto 0.45 K/mm3 (0.9-3.2); Lymphocytes Percent Auto 15.2 % (18.3-44.2); Mean Corpuscular HGB Conc 30.8 g/dl (32-36); Mean Corpuscular Hemoglobin 28.9 pg (26-34); Mean Corpuscular Volume 93.9 fl (80-100); Mean Platelet Volume 9.9 fl (7.4-10.4); Monocytes Absolute Auto 0.4 K/mm3 (0.1-0.6); Monocytes Percent Auto 14.8 % (2.6-8.5); Neutrophils Absolute Auto 1.8 K/mm3 (1.3-6.7); Neutrophils Percent Auto 60.9 % (45.5-73.1); Platelet Count Result 177 k/mm3 (150-375); Red Blood Count 2.94 M/mm3 (4.2-5.4); Red Cell Distribution Width 15.9 % (11.5-14.5)
[2024-10-07] MEDS: METOCLOPRAMIDE HCL INJ 10 MG/2 ML VIAL IV PUSH (05:55)
[2024-10-07 06:02] LABS: Alanine Aminotransferase 11 U/L (6-35); Albumin Level 2.9 g/dL (3.5-5.1); Alkaline Phosphatase 97 U/L (38-126); Anion Gap 7 mmol/L (4-12); Aspartate Amino Transferase 23 U/L (14-36); Bilirubin,Total 0.5 mg/dL (0.2-1.3); Blood Urea Nitrogen 21 mg/dL (7-17); Calcium 8.5 mg/dL (8.4-10.2); Carbon Dioxide 23 mmol/L (22-30); Chloride 102 mmol/L (98-107); Estimated CRCL calculation 48 ml/min; Estimated Glomerular Filt Rate > 60; Glucose 78 mg/dL (65-110); Potassium 3.1 mmol/L (3.4-5.0); Sodium 132 mmol/L (137-145)
[2024-10-07] MEDS: levETIRAcetam IV 750 MG in DEXTROSE 5% 100 ML 430 MG IVPB (08:45)
[2024-10-07] MEDS: LACTULOSE 20 GM/30 ML UDC PO ×2 (08:45→20:21)
[2024-10-07] MEDS: PANTOPRAZOLE SODIUM IV 40 MG VIAL 20 MG IV PUSH (08:45)
[2024-10-07] MEDS: HEPARIN SODIUM 5,000 UNITS/ML VIAL 5000 UNITS SUB-Q ×2 (08:47→20:21)
[2024-10-07] MEDS: DOCUSATE SODIUM 100 MG CAPSULE PO ×2 (08:47→20:21)
--- NOTE | 2024-10-07 08:53 | PM.IMPN ---
Progress Note: A&P Assessment and Plan (1) Small bowel obstruction: Code(s): K56.609 - Unspecified intestinal obstruction, unspecified as to partial versus complete obstruction Status: Acute (2) Acute renal failure: Qualifiers: Acute renal failure type: unspecified Qualified Code(s): N17.9 - Acute kidney failure, unspecified Code(s): N17.9 - Acute kidney failure, unspecified Status: Acute (3) Catheter-associated urinary tract infection: Qualifiers: Encounter type: initial encounter Indwelling urinary catheter type: indwelling urethral catheter Qualified Code(s): T83.511A - Infection and inflammatory reaction due to indwelling urethral catheter, initial encounter; N39.0 - Urinary tract infection, site not specified Code(s): T83.511A - Infection and inflammatory reaction due to indwelling urethral catheter, initial encounter; N39.0 - Urinary tract infection, site not specified Status: Acute Plan Patsy Hugo is a 64-year-old female with a medical history significant for dementia, sedentary status, pressure ulcers around the sacrum, constipation, depression, GERD, dyslipidemia, chronic indwelling White catheter A resident of [facility], she was recently evaluated and managed for sepsis, fecal impaction an SBO (09/16-02/07) and discharged . staff were concerned about abdominal pain with nausea and vomiting; symptoms aggravated by meals/fluids, alleviated by fasting; associated with some anxiety and restlessness. Small bowel obstruction and fecal impaction CT scan also shows a large amount of stool in her right colon, which could be contributing to or causing this issue. Hypaque enema done resolved seizures 10/01/2024 aborted with IV Ativan. Loaded with Keppra and will continue Keppra as ordered. Neurology consulted. CT head was negative. Changed to Keppra 750 mg b.i.d. p.o. today UTI (urinary tract infection): Urine culture grew pseudomonas aeruginosa. Sensitivities to all abx Switch from Cefepime 2 gram IVPB q 12. Switched to Levaquin 500 mg IV daily. Completes the course Constipation AND FECAL IMPACTION: Hypaque enema PRN has loose stools f/u c diff, NEGATIVE Discontinue MiraLax, patient declined to take MiraLax, continue lactulose KUB yesterday showed no fecal impaction Hypertension: Blood pressure is well control Hypokalemia: Potassium Chloride 40 meq p.o. and 20 mEq IV Follow-up BMP Hypomagnesemia: corrected Metabolic acidosis switched to bicarb gtt, corrected anemia: no signs of bleeding. transfusion to keep Hb > 7. H&H remained stable . needed transfusion last admission. bilateral hydronephrosis due to mass effect on distal ureter by fecal impaction. Recheck ultrasound with mild persistent right hydronephrosis. fu with urology as op basis. this time ct with left mild hydronephrosis Chronic White catheter Neurogenic bladder History of ulcerative colitis GERD Hypertension Hyperlipidemia History of DVT Chronic anemia Dementia DVT Prophylaxis: heparin sq Code Status: Full code [facility] resident May discharge patient to halfway tomorrow if condition continues to improve Subjective Date/time seen: 10/07/24 08:53 Interval history: Patient feels better today, still has a poor intake, denies abdomen pain, patient has loose stool from rectal tube, C diff negative KUB shows no obstruction Exam Narrative: GENERAL: Irritable in no acute distress. Well-nourished. - EYES: EOMI. Anicteric. - HENT: Moist mucous membranes. - LUNGS: Clear to auscultation bilaterally, no wheezing, rhonchi, or rales. - CARDIOVASCULAR: Regular rate and rhythm. No murmur. No JVD. - ABDOMEN: Soft, non-tender and non-distended. No palpable masses. White catheter in-situ - EXTREMITIES: No edema. Peripheral pulses 2+. Non-tender. - NEUROLOGIC: No focal neurological deficits. CN II-XII grossly intact. - PSYCHIATRIC: Awake, Alert and conversant. Appropriate mood and affect. - SKIN: No rashes or lesions. Warm. - LYMPH: No cervical lymphadenopathy. Objective Data Vital Signs Vital Signs: Vital Signs - 24 hr 10/06/24 12:00 10/06/24 12:00 10/06/24 16:00 Temperature 97.6 F 97.6 F Pulse Rate 89 92 70 Respiratory Rate 18 18 Blood Pressure 142/68 H 140/66 Pulse Oximetry 96 96 Oxygen Delivery Fraction of Inspired Oxygen 10/06/24 16:00 10/06/24 19:45 10/06/24 20:00 Temperature 98.6 F Pulse Rate 90 96 80 Respiratory Rate 16 Blood Pressure 134/79 Pulse Oximetry 99 Oxygen Delivery Fraction of Inspired Oxygen 10/06/24 20:36 10/07/24 00:00 10/07/24 00:00 Temperature 98.2 F Pulse Rate 95 85 84 Respiratory Rate 20 16 Blood Pressure 129/57 L Pulse Oximetry 95 99 Oxygen Delivery Room Air Fraction of Inspired Oxygen 21 10/07/24 04:00 10/07/24 04:00 10/07/24 08:00 Temperature 97.9 F 98.1 F Pulse Rate 93 92 85 Respiratory Rate 16 18 Blood Pressure 141/79 H 145/65 H Pulse Oximetry 98 98 Oxygen Delivery Fraction of Inspired Oxygen Intake/Output Intake/Output: Intake & Output 10/04/24 10/05/24 10/06/24 10/07/24 23:59 23:59 23:59 23:59 Intake Total 2645.0 967.0 1195.0 400 Output Total 2450 2140 1150 850 Balance 195.0 -1173.0 45.0 -450 Meds/Results Medications: Active Medications Generic Name Dose Route Start Last Admin Trade Name Freq PRN Reason Stop Dose Admin Acetaminophen 650 mg 09/27/24 05:03 10/06/24 16:59 Acetaminophen 325 Mg Tablet FEED TUBE 650 mg Q4H PRN Administration Mild Pain (1-3) or Fever Docusate Sodium 100 mg 10/01/24 21:00 10/07/24 08:47 Docusate Sodium 100 Mg Capsule PO 100 mg Q12HR SONIA Administration Heparin Sodium (Porcine) 5,000 units 09/27/24 09:00 10/07/24 08:47 Heparin Sodium 5,000 Units/Ml Vial SUB-Q 5,000 units Q12HR SONIA Administration Levetiracetam 750 mg/ Dextrose 107.5 mls @ 430 mls/hr 10/01/24 21:00 10/07/24 08:45 IVPB 430 mls/hr Q12HR SONIA Administration Lactulose 20 gm 10/05/24 21:00 10/07/24 08:45 Lactulose 20 Gm/30 Ml Udc PO 20 gm Q12H SONIA Administration Lorazepam 2 mg 10/01/24 14:15 Lorazepam Inj (*Crx) 2 Mg/Ml Vial IV PUSH Q6H PRN Seizures Melatonin 5 mg 09/27/24 05:03 10/02/24 20:44 Melatonin 5 Mg Tablet PO 5 mg HS PRN Administration Insomnia Metoclopramide HCl 10 mg 10/06/24 16:30 10/07/24 05:55 Metoclopramide Hcl Inj 10 Mg/2 Ml Vial IV PUSH 10 mg ACHS SONIA Administration Miscellaneous Information 0 each 10/05/24 00:01 10/07/24 08:44 Morphine Renew Order If Still Needed Or Will Auto D/C XX 11/04/24 00:00 Not Given CLARIFY SONIA Ondansetron HCl 4 mg 09/26/24 22:23 10/03/24 17:42 Ondansetron Inj 4 Mg/2 Ml Vial IV PUSH 4 mg Q4H PRN Administration Nausea Pantoprazole Sodium 20 mg 09/27/24 09:00 10/07/24 08:45 Pantoprazole Sodium Iv 40 Mg Vial IV PUSH 20 mg Q12HR SONIA Administration Polyethylene Glycol 17 gm 10/06/24 09:00 10/07/24 08:48 Polyethylene Glycol 3350 17 Gm Powd.Pack PO Not Given QAM SONIA Sertraline HCl 50 mg 09/29/24 09:00 10/06/24 09:30 Sertraline Hcl 50 Mg Tablet PO 50 mg DAILY SONIA Administration Radiology Results: ITS Impressions Abdomen/Pelvis CT 09/26/24 20:50 IMPRESSION: Small bilateral pleural effusions. Chronic intra and extra hepatic bile duct dilation. Mid small bowel obstruction, transition point may represent an area of adhesion or short segment infectious, inflammatory, or ischemic colitis. Mild left hydronephrosis and urothelial enhancement may represent ascending infection/pyelitis. Cystitis. Proctitis. Small Bowel X-Ray 09/29/24 12:13 IMPRESSION: 1. Persistent mildly dilated loops of small bowel but without discrete transition point and with normal small bowel transit time consistent with resolving versus partial small bowel obstruction. Chest X-Ray 10/01/24 13:48 IMPRESSION: 1: NO ACUTE CARDIOPULMONARY DISEASE. Head CT 10/01/24 14:04 Impression: No acute intracranial hemorrhage or suspicious mass effect. Abdomen X-Ray 10/06/24 14:23 IMPRESSION: NO ACUTE ABDOMINAL FINDINGS. Labs Labs: Laboratory Results - last 24 hr 10/07/24 10/07/24 02:14 05:26 WBC 3.0 L RBC 2.94 L Hgb 8.5 L Hct 27.6 L MCV 93.9 MCH 28.9 MCHC 30.8 L RDW 15.9 H Plt Count 177 MPV 9.9 Immature Gran % (Auto) 2.7 H Neut % (Auto) 60.9 Lymph % (Auto) 15.2 L [place] % (Auto) 14.8 H Eos % (Auto) 5.1 H Baso % (Auto) 1.3 H Lymph # (Auto) 0.45 L [place] # (Auto) 0.4 Eos # (Auto) 0.2 Baso # (Auto) 0.0 Abs Immat Gran (auto) 0.08 H Absolute Neuts (auto) 1.8 Absolute Nucleated RBC 0.000 Nucleated RBC % 0.0 Sodium 132 L Potassium 3.1 L Chloride 102 Carbon Dioxide 23 Anion Gap 7 BUN 21 H Creatinine 0.92 Estim Creat Clear Calc 48 Estimated GFR > 60 Glucose 78 Calcium 8.5 Total Bilirubin 0.5 AST 23 ALT 11 Alkaline Phosphatase 97 Total Protein 5.0 L Albumin 2.9 L C. difficile (PCR) Negative
[2024-10-07] MEDS: POTASSIUM CHLORIDE 20 MEQ PACKET (FOR LIQUID) 40 MEQ PO (09:35)
[2024-10-07] MEDS: KCL 20 MEQ/SW 100 ML 100 ML 50 MEQ IVPB (09:36)
--- NOTE | 2024-10-07 12:52 | PCNFU ---
Nutrition Follow-Up Complete: 1. Inadequate oral intake related to small bowel obstruction as evidenced by NPO day 3 2. Increased protein energy intake related to wound healing as evidenced by deep tissue pressure injury to buttock Advance diet as medically able - Goal is met Address nutrition needs when diet advanced - Progressing with goal Goal: Pt current nutrition is High Fiber diet, Ensure Enlive BID (350 kcal, 20 g protein each). Nutrition recommendation: No new recommendations. Continue with current nutrition care plan and orders Last recorded weight is 68 kg. Bowel Motility: Liquid stool per FMS Labs Reviewed: Hgb 8.5, Hct 27.6, Alb 2.9, Na 132, K+ 3.1, BUN 21 Meds Noted : Protonix, lactulose, colace Skin: Deep tissue pressure injury to buttocks being addressed with oral nutrition supplement Additional Notes: Intakes have been sporadic. Pt refused colonoscopy. C-diff is negative. Liquid stool output per tube. Agree with nutrition orders. Monitoring intakes, weights, labs, diet advancement, skin, plan of care Follow up in 2 days for NPO/CL day 5
[2024-10-07] MEDS: levETIRAcetam Tablet 250 MG, levETIRAcetam Tablet 500 MG 750 MG PO (20:21)
[2024-10-07] MEDS: PANTOPRAZOLE SOD SESQUIHYDRATE 20 MG TAB PO (20:22)
[2024-10-08] VITALS (12 sets, daily range): BP systolic 137–147; BP diastolic 54–88; PULSE 86–109; RESP 16–20; TEMP 36.2–37.1; O2SAT 91–100
[2024-10-08] MEDS: levETIRAcetam Tablet 250 MG, levETIRAcetam Tablet 500 MG 750 MG PO ×2 (08:36→21:42)
[2024-10-08] MEDS: HEPARIN SODIUM 5,000 UNITS/ML VIAL 5000 UNITS SUB-Q ×2 (08:36→21:45)
[2024-10-08] MEDS: PANTOPRAZOLE SOD SESQUIHYDRATE 20 MG TAB PO ×2 (08:36→21:44)
[2024-10-08] MEDS: DOCUSATE SODIUM 100 MG CAPSULE PO (08:36)
[2024-10-08] MEDS: ACETAMINOPHEN 325 MG TABLET 650 MG FEED TUBE (08:39)
--- NOTE | 2024-10-08 11:30 | PM.IMPN ---
Progress Note: A&P Assessment and Plan (1) Small bowel obstruction: Code(s): K56.609 - Unspecified intestinal obstruction, unspecified as to partial versus complete obstruction Status: Acute Assessment and Plan: Patient abdominal x-ray was negative. Patient has rectal tube working. Plan is to continue current treatment. (2) Acute renal failure: Qualifiers: Acute renal failure type: unspecified Qualified Code(s): N17.9 - Acute kidney failure, unspecified Code(s): N17.9 - Acute kidney failure, unspecified Status: Acute Assessment and Plan: Getting better. Will continue to Monitor closely. (3) Catheter-associated urinary tract infection: Qualifiers: Encounter type: initial encounter Indwelling urinary catheter type: indwelling urethral catheter Qualified Code(s): T83.511A - Infection and inflammatory reaction due to indwelling urethral catheter, initial encounter; N39.0 - Urinary tract infection, site not specified Code(s): T83.511A - Infection and inflammatory reaction due to indwelling urethral catheter, initial encounter; N39.0 - Urinary tract infection, site not specified Status: Acute Assessment and Plan: Completed course of IV antibiotics. Plan Patsy Hugo is a 64-year-old female with a medical history significant for dementia, sedentary status, pressure ulcers around the sacrum, constipation, depression, GERD, dyslipidemia, chronic indwelling White catheter A resident of [facility], she was recently evaluated and managed for sepsis, fecal impaction an SBO (09/16-02/07) and discharged . staff were concerned about abdominal pain with nausea and vomiting; symptoms aggravated by meals/fluids, alleviated by fasting; associated with some anxiety and restlessness. Small bowel obstruction and fecal impaction CT scan also shows a large amount of stool in her right colon, which could be contributing to or causing this issue. Hypaque enema done resolved seizures 10/01/2024 aborted with IV Ativan. Loaded with Keppra and will continue Keppra as ordered. Neurology consulted. CT head was negative. Changed to Keppra 750 mg b.i.d. p.o. today UTI (urinary tract infection): Urine culture grew pseudomonas aeruginosa. Sensitivities to all abx Switch from Cefepime 2 gram IVPB q 12. Switched to Levaquin 500 mg IV daily. Completes the course Constipation AND FECAL IMPACTION: Hypaque enema PRN has loose stools f/u c diff, NEGATIVE Discontinue MiraLax, patient declined to take MiraLax, continue lactulose KUB yesterday showed no fecal impaction Hypertension: Blood pressure is well control Hypokalemia: Potassium Chloride 40 meq p.o. and 20 mEq IV Follow-up BMP Hypomagnesemia: corrected Metabolic acidosis switched to bicarb gtt, corrected anemia: no signs of bleeding. transfusion to keep Hb > 7. H&H remained stable . needed transfusion last admission. bilateral hydronephrosis due to mass effect on distal ureter by fecal impaction. Recheck ultrasound with mild persistent right hydronephrosis. fu with urology as op basis. this time ct with left mild hydronephrosis Chronic White catheter Neurogenic bladder History of ulcerative colitis GERD Hypertension Hyperlipidemia History of DVT Chronic anemia Dementia DVT Prophylaxis: heparin sq Code Status: Full code [facility] resident May discharge patient to [facility] tomorrow if condition continues to improve Subjective Date/time seen: 10/08/24 11:30 Interval history: Patient was seen during the morning rounds today. No new overnight complaints. Feeling slightly better today. Still has a poor intake, denies abdomen pain, patient has loose stool from rectal tube. C diff negative KUB shows no obstruction Review of Systems Review of Systems: All systems reviewed & are unremarkable except as noted in HPI and below ROS unobtainable: Yes unobtainable due to medical condition Exam Narrative: GENERAL: Irritable in no acute distress. Well-nourished. - EYES: EOMI. Anicteric. - HENT: Moist mucous membranes. - LUNGS: Clear to auscultation bilaterally, no wheezing, rhonchi, or rales. - CARDIOVASCULAR: Regular rate and rhythm. No murmur. No JVD. - ABDOMEN: Soft, non-tender and non-distended. No palpable masses. White catheter in-situ - EXTREMITIES: No edema. Peripheral pulses 2+. Non-tender. - NEUROLOGIC: No focal neurological deficits. CN II-XII grossly intact. - PSYCHIATRIC: Awake, Alert and conversant. Appropriate mood and affect. - SKIN: No rashes or lesions. Warm. - LYMPH: No cervical lymphadenopathy. Const: General: no acute distress, in distress and uncomfortable HENMT: Ears: TM's normal bilaterally Face/Nose/Sinus: Normal nares present Eyes: Sclera: sclerae normal Pupils: Equal, round and reactive pupils present Neck: Neck: supple Resp: Effort & Inspection: normal respiratory effort Auscultation: clear to auscultation bilaterally Cardio: Rate: regular rate and tachycardic Rhythm: regular rhythm Other: Telemetry- SR 99. GI: Inspection: distended Auscultation: abnormal bowel sounds Other: hypoactive bowel sounds. Skin: General skin exam: normal color Other: Multiple open wounds to bilateral buttocks and left posterior thigh. Maceration noted. No necrotic area and minimal exudate. See wound care note and treatment. Neuro: General: No gait normal Cranial nerves: Yes Equal, round and reactive pupils present Speech: normal speech Motor exam (neuro): strength not 5/5 throughout and tone not normal throughout Extrem: General: abnormal to inspection and no pedal edema Psych: Mental Status: mental status grossly normal Affect: normal affect Objective Data Vital Signs Vital Signs: Vital Signs - 24 hr 10/07/24 12:00 10/07/24 12:00 10/07/24 16:00 Temperature 36.7 C 37.2 C Pulse Rate 103 H 102 H 107 H Respiratory Rate 18 18 Blood Pressure 106/57 L 150/52 H Pulse Oximetry 96 97 10/07/24 16:00 10/07/24 19:16 10/07/24 20:00 Temperature 36.8 C Pulse Rate 102 H 110 H 114 H Respiratory Rate 16 Blood Pressure 140/92 H Pulse Oximetry 99 10/07/24 20:26 10/08/24 00:00 10/08/24 00:00 Temperature 36.6 C Pulse Rate 100 105 H 98 Respiratory Rate 20 Blood Pressure 147/62 H 137/54 L Pulse Oximetry 97 10/08/24 04:00 10/08/24 04:00 10/08/24 08:00 Temperature 36.2 C L 36.2 C L Pulse Rate 97 99 97 Respiratory Rate 20 16 Blood Pressure 147/86 H 141/66 H Pulse Oximetry 99 100 10/08/24 08:45 10/08/24 11:10 Temperature Pulse Rate 86 98 Respiratory Rate Blood Pressure Pulse Oximetry Intake/Output Intake/Output: Intake & Output 10/05/24 10/06/24 10/07/24 10/08/24 23:59 23:59 23:59 23:59 Intake Total 967.0 1195.0 1120 600 Output Total 2140 1150 1500 1650 Balance -1173.0 45.0 -380 -1050 Meds/Results Medications: Active Medications Generic Name Dose Route Start Last Admin Trade Name Freq PRN Reason Stop Dose Admin Acetaminophen 650 mg 09/27/24 05:03 10/08/24 08:39 Acetaminophen 325 Mg Tablet FEED TUBE 650 mg Q4H PRN Administration Mild Pain (1-3) or Fever Docusate Sodium 100 mg 10/01/24 21:00 10/08/24 08:36 Docusate Sodium 100 Mg Capsule PO 100 mg Q12HR SONIA Administration Heparin Sodium (Porcine) 5,000 units 09/27/24 09:00 10/08/24 08:36 Heparin Sodium 5,000 Units/Ml Vial SUB-Q 5,000 units Q12HR SONIA Administration Lactulose 20 gm 10/05/24 21:00 10/08/24 08:41 Lactulose 20 Gm/30 Ml Udc PO Not Given Q12H SONIA Levetiracetam 250 mg/ 750 mg 10/07/24 21:00 10/08/24 08:36 Levetiracetam 500 mg PO 750 mg Q12HR SONIA Administration Lorazepam 2 mg 10/01/24 14:15 Lorazepam Inj (*Crx) 2 Mg/Ml Vial IV PUSH Q6H PRN Seizures Melatonin 5 mg 09/27/24 05:03 10/02/24 20:44 Melatonin 5 Mg Tablet PO 5 mg HS PRN Administration Insomnia Miscellaneous Information 0 each 10/05/24 00:01 10/08/24 08:33 Morphine Renew Order If Still Needed Or Will Auto D/C XX 11/04/24 00:00 Not Given [facility] Ondansetron HCl 4 mg 10/07/24 11:59 Ondansetron Hcl Odt 4 Mg Tablet PO Q6H PRN Nausea And Vomiting Pantoprazole Sodium 20 mg 10/07/24 21:00 10/08/24 08:36 Pantoprazole Sod Sesquihydrate 20 Mg Tab PO 20 mg Q12HR SONIA Administration Polysaccharide Iron Complex 150 mg 10/09/24 08:00 Polysaccharide Iron Complex 150 Mg Capsule PO DAILY@0800 SONIA Sertraline HCl 50 mg 09/29/24 09:00 10/06/24 09:30 Sertraline Hcl 50 Mg Tablet PO 50 mg DAILY SONIA Administration Radiology Results: ITS Impressions Abdomen/Pelvis CT 09/26/24 20:50 IMPRESSION: Small bilateral pleural effusions. Chronic intra and extra hepatic bile duct dilation. Mid small bowel obstruction, transition point may represent an area of adhesion or short segment infectious, inflammatory, or ischemic colitis. Mild left hydronephrosis and urothelial enhancement may represent ascending infection/pyelitis. Cystitis. Proctitis. Small Bowel X-Ray 09/29/24 12:13 IMPRESSION: 1. Persistent mildly dilated loops of small bowel but without discrete transition point and with normal small bowel transit time consistent with resolving versus partial small bowel obstruction. Chest X-Ray 10/01/24 13:48 IMPRESSION: 1: NO ACUTE CARDIOPULMONARY DISEASE. Head CT 10/01/24 14:04 Impression: No acute intracranial hemorrhage or suspicious mass effect. Abdomen X-Ray 10/06/24 14:23 IMPRESSION: NO ACUTE ABDOMINAL FINDINGS. Quality VTE Prophylaxis VTE prophylaxis: mechanical ordered and pharmacologic ordered
--- NOTE | 2024-10-08 23:16 | PC.NURSE ---
pt verbally agressive/frequent profanity directed at staff, removing telemetry, refusing medications, and refusing turning. Pt is alert to person only at this time, will continue to attempt q2hr turns to prevent further skin breakdown, however pt immediately removes pillows and returns to laying on areas of skin breakdown.
[2024-10-09] VITALS (10 sets, daily range): BP systolic 118–134; BP diastolic 62–72; PULSE 89–110; RESP 17–18; TEMP 36.3–36.7; O2SAT 97–99
[2024-10-09 05:00] LABS: Alanine Aminotransferase 11 U/L (6-35); Albumin Level 2.9 g/dL (3.5-5.1); Alkaline Phosphatase 97 U/L (38-126); Anion Gap 7 mmol/L (4-12); Aspartate Amino Transferase 20 U/L (14-36); Bilirubin,Total 0.4 mg/dL (0.2-1.3); Blood Urea Nitrogen 24 mg/dL (7-17); Calcium 8.8 mg/dL (8.4-10.2); Carbon Dioxide 24 mmol/L (22-30); Chloride 101 mmol/L (98-107); Estimated CRCL calculation 50 ml/min; Estimated Glomerular Filt Rate > 60; Glucose 84 mg/dL (65-110); Potassium 3.1 mmol/L (3.4-5.0); Sodium 132 mmol/L (137-145)
[2024-10-09] MEDS: HEPARIN SODIUM 5,000 UNITS/ML VIAL 5000 UNITS SUB-Q ×2 (08:48→22:17)
[2024-10-09] MEDS: POLYSACCHARIDE IRON COMPLEX 150 MG CAPSULE PO (08:49)
[2024-10-09] MEDS: levETIRAcetam Tablet 250 MG, levETIRAcetam Tablet 500 MG 750 MG PO ×2 (08:49→22:16)
[2024-10-09] MEDS: DOCUSATE SODIUM 100 MG CAPSULE PO ×2 (08:49→22:17)
[2024-10-09] MEDS: PANTOPRAZOLE SOD SESQUIHYDRATE 20 MG TAB PO ×2 (08:49→22:18)
[2024-10-09] MEDS: LACTULOSE 20 GM/30 ML UDC PO (08:50)
--- NOTE | 2024-10-09 09:38 | PM.IMPN ---
Progress Note: A&P Assessment and Plan (1) Small bowel obstruction: Code(s): K56.609 - Unspecified intestinal obstruction, unspecified as to partial versus complete obstruction Status: Acute Assessment and Plan: Patient abdominal x-ray was negative. Patient has rectal tube working. Plan is to continue current treatment. (2) Acute renal failure: Qualifiers: Acute renal failure type: unspecified Qualified Code(s): N17.9 - Acute kidney failure, unspecified Code(s): N17.9 - Acute kidney failure, unspecified Status: Acute Assessment and Plan: Getting better. Will continue to Monitor closely. (3) Catheter-associated urinary tract infection: Qualifiers: Encounter type: initial encounter Indwelling urinary catheter type: indwelling urethral catheter Qualified Code(s): T83.511A - Infection and inflammatory reaction due to indwelling urethral catheter, initial encounter; N39.0 - Urinary tract infection, site not specified Code(s): T83.511A - Infection and inflammatory reaction due to indwelling urethral catheter, initial encounter; N39.0 - Urinary tract infection, site not specified Status: Acute Assessment and Plan: Completed course of IV antibiotics. (4) Hypokalemia: Code(s): E87.6 - Hypokalemia Status: Acute Assessment and Plan: Replace and monitor Plan Patsy Hugo is a 64-year-old female with a medical history significant for dementia, sedentary status, pressure ulcers around the sacrum, constipation, depression, GERD, dyslipidemia, chronic indwelling White catheter A resident of [facility], she was recently evaluated and managed for sepsis, fecal impaction an SBO (09/16-02/07) and discharged . staff were concerned about abdominal pain with nausea and vomiting; symptoms aggravated by meals/fluids, alleviated by fasting; associated with some anxiety and restlessness. Small bowel obstruction and fecal impaction CT scan also shows a large amount of stool in her right colon, which could be contributing to or causing this issue. Hypaque enema done resolved seizures 10/01/2024 aborted with IV Ativan. Loaded with Keppra and will continue Keppra as ordered. Neurology consulted. CT head was negative. Changed to Keppra 750 mg b.i.d. p.o. today UTI (urinary tract infection): Urine culture grew pseudomonas aeruginosa. Sensitivities to all abx Switch from Cefepime 2 gram IVPB q 12. Switched to Levaquin 500 mg IV daily. Completes the course Constipation AND FECAL IMPACTION: Hypaque enema PRN has loose stools f/u c diff, NEGATIVE Discontinue MiraLax, patient declined to take MiraLax, continue lactulose KUB yesterday showed no fecal impaction Hypertension: Blood pressure is well control Hypokalemia: Potassium Chloride 40 meq p.o. and 20 mEq IV Follow-up BMP Hypomagnesemia: corrected Metabolic acidosis switched to bicarb gtt, corrected anemia: no signs of bleeding. transfusion to keep Hb > 7. H&H remained stable . needed transfusion last admission. bilateral hydronephrosis due to mass effect on distal ureter by fecal impaction. Recheck ultrasound with mild persistent right hydronephrosis. fu with urology as op basis. this time ct with left mild hydronephrosis Chronic White catheter Neurogenic bladder History of ulcerative colitis GERD Hypertension Hyperlipidemia History of DVT Chronic anemia Dementia DVT Prophylaxis: heparin sq Code Status: Full code [facility] living resident May discharge patient to [facility] tomorrow if condition continues to improve Subjective Date/time seen: 10/09/24 09:38 Interval history: Patient was seen during the morning rounds today. Feeling better Still has a poor intake, denies abdomen pain, patient has loose stool from rectal tube. C diff negative KUB shows no obstruction Review of Systems Review of Systems: All systems reviewed & are unremarkable except as noted in HPI and below ROS unobtainable: Yes unobtainable due to medical condition Exam Narrative: GENERAL: Irritable in no acute distress. Well-nourished. - EYES: EOMI. Anicteric. - HENT: Moist mucous membranes. - LUNGS: Clear to auscultation bilaterally, no wheezing, rhonchi, or rales. - CARDIOVASCULAR: Regular rate and rhythm. No murmur. No JVD. - ABDOMEN: Soft, non-tender and non-distended. No palpable masses. White catheter in-situ - EXTREMITIES: No edema. Peripheral pulses 2+. Non-tender. - NEUROLOGIC: No focal neurological deficits. CN II-XII grossly intact. - PSYCHIATRIC: Awake, Alert and conversant. Appropriate mood and affect. - SKIN: No rashes or lesions. Warm. - LYMPH: No cervical lymphadenopathy. Const: General: no acute distress, in distress and uncomfortable HENMT: Ears: TM's normal bilaterally Face/Nose/Sinus: Normal nares present Eyes: Sclera: sclerae normal Pupils: Equal, round and reactive pupils present Neck: Neck: supple Resp: Effort & Inspection: normal respiratory effort Auscultation: clear to auscultation bilaterally Cardio: Rate: regular rate and tachycardic Rhythm: regular rhythm Other: Telemetry- SR 99. GI: Inspection: distended Auscultation: abnormal bowel sounds Other: hypoactive bowel sounds. Skin: General skin exam: normal color Other: Multiple open wounds to bilateral buttocks and left posterior thigh. Maceration noted. No necrotic area and minimal exudate. See wound care note and treatment. Neuro: General: No gait normal Cranial nerves: Yes Equal, round and reactive pupils present Speech: normal speech Motor exam (neuro): strength not 5/5 throughout and tone not normal throughout Extrem: General: abnormal to inspection and no pedal edema Psych: Mental Status: mental status grossly normal Affect: normal affect Objective Data Vital Signs Vital Signs: Vital Signs - 24 hr 10/08/24 11:10 10/08/24 11:55 10/08/24 12:00 Temperature 37.1 C Pulse Rate 98 107 H 109 H Respiratory Rate 16 Blood Pressure 143/82 H Pulse Oximetry 97 Oxygen Delivery 10/08/24 15:08 10/08/24 16:00 10/08/24 19:29 Temperature 36.6 C 36.6 C Pulse Rate 101 H 99 101 H Respiratory Rate 16 17 Blood Pressure 142/70 H 137/74 Pulse Oximetry 98 91 Oxygen Delivery 10/08/24 20:00 10/08/24 20:00 10/08/24 23:32 Temperature 37.1 C Pulse Rate 98 106 H Respiratory Rate 17 Blood Pressure 137/88 Pulse Oximetry 99 Oxygen Delivery Room Air 10/09/24 00:00 10/09/24 03:32 10/09/24 04:00 Temperature 36.3 C L Pulse Rate 104 H 96 89 Respiratory Rate 17 Blood Pressure 132/65 Pulse Oximetry 99 Oxygen Delivery 10/09/24 04:00 10/09/24 08:00 Temperature 36.3 C L 36.4 C Pulse Rate 96 92 Respiratory Rate 17 17 Blood Pressure 132/65 134/64 Pulse Oximetry 99 98 Oxygen Delivery Intake/Output Intake/Output: Intake & Output 10/06/24 10/07/24 10/08/24 10/09/24 23:59 23:59 23:59 23:59 Intake Total 1195.0 1120 1200 750 Output Total 1150 1500 2670 1850 Balance 45.0 380 -6779 -1100 Meds/Results Medications: Active Medications Generic Name Dose Route Start Last Admin Trade Name Freq PRN Reason Stop Dose Admin Acetaminophen 650 mg 09/27/24 05:03 10/08/24 08:39 Acetaminophen 325 Mg Tablet FEED TUBE 650 mg Q4H PRN Administration Mild Pain (1-3) or Fever Docusate Sodium 100 mg 10/01/24 21:00 10/09/24 08:49 Docusate Sodium 100 Mg Capsule PO 100 mg Q12HR SONIA Administration Heparin Sodium (Porcine) 5,000 units 09/27/24 09:00 10/09/24 08:48 Heparin Sodium 5,000 Units/Ml Vial SUB-Q 5,000 units Q12HR SONIA Administration Potassium Chloride 40 meq/ 520 mls @ 130 mls/hr 10/09/24 09:37 Sodium Chloride IVPB 10/09/24 13:36 ONCE ONE Lactulose 20 gm 10/05/24 21:00 10/09/24 08:50 Lactulose 20 Gm/30 Ml Udc PO 20 gm Q12H SONIA Administration Levetiracetam 250 mg/ 750 mg 10/07/24 21:00 10/09/24 08:49 Levetiracetam 500 mg PO 750 mg Q12HR SONIA Administration Lorazepam 2 mg 10/01/24 14:15 Lorazepam Inj (*Crx) 2 Mg/Ml Vial IV PUSH Q6H PRN Seizures Magnesium Oxide 400 mg 10/10/24 09:00 Magnesium Oxide 400 Mg Tablet PO DAILY SONIA Melatonin 5 mg 09/27/24 05:03 10/02/24 20:44 Melatonin 5 Mg Tablet PO 5 mg HS PRN Administration Insomnia Miscellaneous Information 0 each 10/05/24 00:01 10/09/24 07:14 Morphine Renew Order If Still Needed Or Will Auto D/C XX 11/04/24 00:00 Not Given CLARIFY SONIA Ondansetron HCl 4 mg 10/07/24 11:59 Ondansetron Hcl Odt 4 Mg Tablet PO Q6H PRN Nausea And Vomiting Pantoprazole Sodium 20 mg 10/07/24 21:00 10/09/24 08:49 Pantoprazole Sod Sesquihydrate 20 Mg Tab PO 20 mg Q12HR SONIA Administration Polysaccharide Iron Complex 150 mg 10/09/24 08:00 10/09/24 08:49 Polysaccharide Iron Complex 150 Mg Capsule PO 150 mg DAILY@0800 SONIA Administration Potassium Chloride 20 meq 10/09/24 09:37 Potassium Chloride 20 Meq Er Tablet PO 10/09/24 09:38 ONCE ONE Sertraline HCl 50 mg 09/29/24 09:00 10/06/24 09:30 Sertraline Hcl 50 Mg Tablet PO 50 mg DAILY SONIA Administration Radiology Results: ITS Impressions Abdomen/Pelvis CT 09/26/24 20:50 IMPRESSION: Small bilateral pleural effusions. Chronic intra and extra hepatic bile duct dilation. Mid small bowel obstruction, transition point may represent an area of adhesion or short segment infectious, inflammatory, or ischemic colitis. Mild left hydronephrosis and urothelial enhancement may represent ascending infection/pyelitis. Cystitis. Proctitis. Small Bowel X-Ray 09/29/24 12:13 IMPRESSION: 1. Persistent mildly dilated loops of small bowel but without discrete transition point and with normal small bowel transit time consistent with resolving versus partial small bowel obstruction. Chest X-Ray 10/01/24 13:48 IMPRESSION: 1: NO ACUTE CARDIOPULMONARY DISEASE. Head CT 10/01/24 14:04 Impression: No acute intracranial hemorrhage or suspicious mass effect. Abdomen X-Ray 10/06/24 14:23 IMPRESSION: NO ACUTE ABDOMINAL FINDINGS. Labs Labs: Laboratory Results - last 24 hr 10/09/24 04:21 Sodium 132 L Potassium 3.1 L Chloride 101 Carbon Dioxide 24 Anion Gap 7 BUN 24 H Creatinine 0.87 Estim Creat Clear Calc 50 Estimated GFR > 60 Glucose 84 Calcium 8.8 Total Bilirubin 0.4 AST 20 ALT 11 Alkaline Phosphatase 97 Total Protein 5.0 L Albumin 2.9 L Quality VTE Prophylaxis VTE prophylaxis: mechanical ordered and pharmacologic ordered
[2024-10-09] MEDS: POTASSIUM CHLORIDE 20 MEQ ER TABLET 80 MEQ PO (10:36)
[2024-10-09] MEDS: MELATONIN 5 MG TABLET PO (22:17)
[2024-10-10] VITALS (10 sets, daily range): BP systolic 110–125; BP diastolic 52–72; PULSE 89–104; RESP 16–18; TEMP 36.3–36.8; O2SAT 98–100
[2024-10-10 04:53] LABS: Hematocrit 30.1 % (37.0-47.0); Mean Corpuscular HGB Conc 29.9 g/dl (32-36); Mean Corpuscular Hemoglobin 29.2 pg (26-34); Mean Corpuscular Volume 97.7 fl (80-100); Mean Platelet Volume 10.1 fl (7.4-10.4); Platelet Count Result 173 k/mm3 (150-375); Red Blood Count 3.08 M/mm3 (4.2-5.4); White Blood Count 3.6 K/mm3 (4.5-10.0)
[2024-10-10 05:03] LABS: Alanine Aminotransferase 9 U/L (6-35); Albumin Level 2.8 g/dL (3.5-5.1); Alkaline Phosphatase 103 U/L (38-126); Anion Gap 6 mmol/L (4-12); Aspartate Amino Transferase 21 U/L (14-36); Bilirubin,Total 0.6 mg/dL (0.2-1.3); Blood Urea Nitrogen 34 mg/dL (7-17); Calcium 8.9 mg/dL (8.4-10.2); Carbon Dioxide 22 mmol/L (22-30); Chloride 103 mmol/L (98-107); Estimated CRCL calculation 51 ml/min; Estimated Glomerular Filt Rate > 60; Glucose 96 mg/dL (65-110); Potassium 4.5 mmol/L (3.4-5.0); Sodium 131 mmol/L (137-145)
[2024-10-10] MEDS: DOCUSATE SODIUM 100 MG CAPSULE PO ×2 (09:38→20:27)
[2024-10-10] MEDS: levETIRAcetam Tablet 250 MG, levETIRAcetam Tablet 500 MG 750 MG PO ×2 (09:38→20:27)
[2024-10-10] MEDS: MAGNESIUM OXIDE 400 MG TABLET PO (09:39)
[2024-10-10] MEDS: POLYSACCHARIDE IRON COMPLEX 150 MG CAPSULE PO (09:39)
[2024-10-10] MEDS: LACTULOSE 20 GM/30 ML UDC PO ×2 (09:40→20:30)
[2024-10-10] MEDS: HEPARIN SODIUM 5,000 UNITS/ML VIAL 5000 UNITS SUB-Q ×2 (09:40→20:30)
[2024-10-10] MEDS: PANTOPRAZOLE SOD SESQUIHYDRATE 20 MG TAB PO ×2 (09:40→20:27)
--- NOTE | 2024-10-10 10:13 | P.PNIM_ITS ---
Progress Note: A&P Assessment and Plan (1) Small bowel obstruction: Code(s): K56.609 - Unspecified intestinal obstruction, unspecified as to partial versus complete obstruction Status: Acute Assessment and Plan: Patient abdominal x-ray was negative. Patient has rectal tube working. Plan is to continue current treatment. (2) Acute renal failure: Qualifiers: Acute renal failure type: unspecified Qualified Code(s): N17.9 - Acute kidney failure, unspecified Code(s): N17.9 - Acute kidney failure, unspecified Status: Acute Assessment and Plan: Getting better. Will continue to Monitor closely. (3) Catheter-associated urinary tract infection: Qualifiers: Encounter type: initial encounter Indwelling urinary catheter type: indwelling urethral catheter Qualified Code(s): T83.511A - Infection and inflammatory reaction due to indwelling urethral catheter, initial encounter; N39.0 - Urinary tract infection, site not specified Code(s): T83.511A - Infection and inflammatory reaction due to indwelling urethral catheter, initial encounter; N39.0 - Urinary tract infection, site not specified Status: Acute Assessment and Plan: Completed course of IV antibiotics. (4) Hypokalemia: Code(s): E87.6 - Hypokalemia Status: Acute Assessment and Plan: Resolved Plan Patsy Hugo is a 64-year-old female with a medical history significant for dementia, sedentary status, pressure ulcers around the sacrum, constipation, depression, GERD, dyslipidemia, chronic indwelling White catheter A resident of [facility], she was recently evaluated and managed for sepsis, fecal impaction an SBO (09/16-02/07) and discharged . staff were concerned about abdominal pain with nausea and vomiting; symptoms aggravated by meals/fluids, alleviated by fasting; associated with some anxiety and restlessness. Small bowel obstruction and fecal impaction CT scan also shows a large amount of stool in her right colon, which could be contributing to or causing this issue. Hypaque enema done resolved seizures 10/01/2024 aborted with IV Ativan. Loaded with Keppra and will continue Keppra as ordered. Neurology consulted. CT head was negative. Changed to Keppra 750 mg b.i.d. p.o. today UTI (urinary tract infection): Urine culture grew pseudomonas aeruginosa. Sensitivities to all abx Switch from Cefepime 2 gram IVPB q 12. Switched to Levaquin 500 mg IV daily. Completes the course Constipation AND FECAL IMPACTION: Hypaque enema PRN has loose stools f/u c diff, NEGATIVE Discontinue MiraLax, patient declined to take MiraLax, continue lactulose KUB yesterday showed no fecal impaction Hypertension: Blood pressure is well control Hypokalemia: Potassium Chloride 40 meq p.o. and 20 mEq IV Follow-up BMP Hypomagnesemia: corrected Metabolic acidosis switched to bicarb gtt, corrected anemia: no signs of bleeding. transfusion to keep Hb > 7. H&H remained stable . needed transfusion last admission. bilateral hydronephrosis due to mass effect on distal ureter by fecal impaction. Recheck ultrasound with mild persistent right hydronephrosis. fu with urology as op basis. this time ct with left mild hydronephrosis Chronic White catheter Neurogenic bladder History of ulcerative colitis GERD Hypertension Hyperlipidemia History of DVT Chronic anemia Dementia DVT Prophylaxis: heparin sq Code Status: Full code assisted resident May discharge patient to snf tomorrow if condition continues to improve Subjective Date/time seen: 10/10/24 10:13 Interval history: Patient was seen during the morning rounds today. Feeling better No sob or chest pain No abdominal pain, no nausea or vomiting. Review of Systems Review of Systems: All systems reviewed & are unremarkable except as noted in HPI and below ROS unobtainable: Yes unobtainable due to medical condition Exam Narrative: GENERAL: Irritable in no acute distress. Well-nourished. - EYES: EOMI. Anicteric. - HENT: Moist mucous membranes. - LUNGS: Clear to auscultation bilateral ly, no wheezing, rhonchi, or rales. - CARDIOVASCULAR: Regular rate and rhyth m. No murmur. No JVD. - ABDOMEN: Soft, non-tender and non-dist ended. No palpable masses. White catheter in-situ - EXTREMITIES: No edema. Peripheral puls es 2+. Non-tender. - NEUROLOGIC: No focal neurological defi cits. CN II-XII grossly intact. - PSYCHIATRIC: Awake, Alert and conversa nt. Appropriate mood and affect. - SKIN: No rashes or lesions. Warm. - LYMPH: No cervical lymphadenopathy. Const: General: no acute distress, in distress and uncomfortable HENMT: Ears: TM's normal bilaterally Face/Nose/Sinus: Normal nares present Eyes: Sclera: sclerae normal Pupils: Equal, round and reactive pupils present Neck: Neck: supple Resp: Effort & Inspection: normal respiratory effort Auscultation: clear to auscultation bilaterally Cardio: Rate: regular rate and tachycardic Rhythm: regular rhythm Other: Telemetry- SR 99. GI: Inspection: distended Auscultation: abnormal bowel sounds Other: hypoactive bowel sounds. Skin: General skin exam: normal color Other: Multiple open wounds to bilateral buttocks and left posterior thigh. Maceration noted. No necrotic area and minimal exudate. See wound care note and treatment. Neuro: General: No gait normal Cranial nerves: Yes Equal, round and reactive pupils present Speech: normal speech Motor exam (neuro): strength not 5/5 throughout and tone not normal throughout Extrem: General: abnormal to inspection and no pedal edema Psych: Mental Status: mental status grossly normal Affect: normal affect Objective Data Vital Signs Vital Signs: Vital Signs - 24 hr 10/09/24 12:00 10/09/24 12:00 10/09/24 16:00 Temperature 36.4 C 36.4 C Pulse Rate 94 103 H 94 Respiratory Rate 17 18 Blood Pressure 130/62 132/72 Pulse Oximetry 98 99 Oxygen Delivery 10/09/24 16:00 10/09/24 19:27 10/09/24 20:00 Temperature 36.5 C Pulse Rate 100 106 H Respiratory Rate 17 Blood Pressure 118/66 Pulse Oximetry 97 Oxygen Delivery Room Air 10/09/24 20:00 10/09/24 20:15 10/09/24 23:38 Temperature 36.7 C Pulse Rate 107 H 110 H 102 H Respiratory Rate 17 Blood Pressure 126/72 Pulse Oximetry 99 97 Oxygen Delivery Room Air 10/10/24 00:00 10/10/24 03:58 10/10/24 04:00 Temperature 36.8 C Pulse Rate 92 90 89 Respiratory Rate 16 Blood Pressure 110/56 L Pulse Oximetry 99 Oxygen Delivery 10/10/24 09:38 10/10/24 09:38 Temperature Pulse Rate 89 Respiratory Rate Blood Pressure Pulse Oximetry 100 Oxygen Delivery Room Air Intake/Output Intake/Output: Intake & Output 10/07/24 10/08/24 10/09/24 10/10/24 23:59 23:59 23:59 23:59 Intake Total 1120 1200 1320 170 Output Total 5929 2414 [address] [facility] [phone] Meds/Results Medications: Active Medications Generic Name Dose Route Start Last Admin Trade Name Freq PRN Reason Stop Dose Admin Acetaminophen 650 mg 09/27/24 05:03 10/08/24 08:39 Acetaminophen 325 Mg Tablet FEED TUBE 650 mg Q4H PRN Administration Mild Pain (1-3) or Fever Docusate Sodium 100 mg 10/01/24 21:00 10/10/24 09:38 Docusate Sodium 100 Mg Capsule PO 100 mg Q12HR SONIA Administration Heparin Sodium (Porcine) 5,000 units 09/27/24 09:00 10/10/24 09:40 Heparin Sodium 5,000 Units/Ml Vial SUB-Q 5,000 units Q12HR SONIA Administration Lactulose 20 gm 10/05/24 21:00 10/10/24 09:40 Lactulose 20 Gm/30 Ml Udc PO 20 gm Q12H SONIA Administration Levetiracetam 250 mg/ 750 mg 10/07/24 21:00 10/10/24 09:38 Levetiracetam 500 mg PO 750 mg Q12HR SONIA Administration Lorazepam 2 mg 10/01/24 14:15 Lorazepam Inj (*Crx) 2 Mg/Ml Vial IV PUSH Q6H PRN Seizures Magnesium Oxide 400 mg 10/10/24 09:00 10/10/24 09:39 Magnesium Oxide 400 Mg Tablet PO 400 mg DAILY SONIA Administration Melatonin 5 mg 09/27/24 05:03 10/09/24 22:17 Melatonin 5 Mg Tablet PO 5 mg HS PRN Administration Insomnia Miscellaneous Information 0 each 10/05/24 00:01 10/09/24 07:14 Morphine Renew Order If Still Needed Or Will Auto D/C XX 11/04/24 00:00 Not Given CLARIFY SONIA Ondansetron HCl 4 mg 10/07/24 11:59 Ondansetron Hcl Odt 4 Mg Tablet PO Q6H PRN Nausea And Vomiting Pantoprazole Sodium 20 mg 10/07/24 21:00 10/10/24 09:40 Pantoprazole Sod Sesquihydrate 20 Mg Tab PO 20 mg Q12HR SONIA Administration Polysaccharide Iron Complex 150 mg 10/09/24 08:00 10/10/24 09:39 Polysaccharide Iron Complex 150 Mg Capsule PO 150 mg DAILY@0800 SONIA Administration Sertraline HCl 50 mg 09/29/24 09:00 10/06/24 09:30 Sertraline Hcl 50 Mg Tablet PO 50 mg DAILY SONIA Administration Radiology Results: ITS Impressions Abdomen/Pelvis CT 09/26/24 20:50 IMPRESSION: Small bilateral pleural effusions. Chronic intra and extra hepatic bile duct dilation. Mid small bowel obstruction, transition point may represent an area of adhesion or short segment infectious, inflammatory, or ischemic colitis. Mild left hydronephrosis and urothelial enhancement may represent ascending infection/pyelitis. Cystitis. Proctitis. Small Bowel X-Ray 09/29/24 12:13 IMPRESSION: 1. Persistent mildly dilated loops of small bowel but without discrete transition point and with normal small bowel transit time consistent with re solving versus partial small bowel obstruction. Chest X-Ray 10/01/24 13:48 IMPRESSION: 1: NO ACUTE CARDIOPULMONARY DISEASE. Head CT 10/01/24 14:04 Impression: No acute intracranial hemorrhage or suspicious mass effect. Abdomen X-Ray 10/06/24 14:23 IMPRESSION: NO ACUTE ABDOMINAL FINDINGS. Labs Labs: Laboratory Results - last 24 hr 10/10/24 04:35 WBC 3.6 L RBC 3.08 L Hgb 9.0 L Hct 30.1 L MCV 97.7 MCH 29.2 MCHC 29.9 L RDW 16.0 H Plt Count 173 MPV 10.1 Sodium 131 L Potassium 4.5 Chloride 103 Carbon Dioxide 22 Anion Gap 6 BUN 34 H D Creatinine 0.85 Estim Creat Clear Calc 51 Estimated GFR > 60 Glucose 96 Calcium 8.9 Total Bilirubin 0.6 AST 21 ALT 9 Alkaline Phosphatase 103 Total Protein 5.0 L Albumin 2.8 L Quality VTE Prophylaxis VTE prophylaxis: mechanical ordered and pharmacologic ordered
[2024-10-11] VITALS (10 sets, daily range): BP systolic 110–156; BP diastolic 52–95; PULSE 88–120; RESP 16–20; TEMP 36.3–36.7; O2SAT 95–98
[2024-10-11] MEDS: levETIRAcetam Tablet 250 MG, levETIRAcetam Tablet 500 MG 750 MG PO ×2 (08:49→22:41)
[2024-10-11] MEDS: PANTOPRAZOLE SOD SESQUIHYDRATE 20 MG TAB PO ×2 (08:50→22:41)
[2024-10-11] MEDS: MAGNESIUM OXIDE 400 MG TABLET PO (08:50)
[2024-10-11] MEDS: POLYSACCHARIDE IRON COMPLEX 150 MG CAPSULE PO (08:50)
[2024-10-11] MEDS: DOCUSATE SODIUM 100 MG CAPSULE PO ×2 (08:50→22:41)
[2024-10-11] MEDS: HEPARIN SODIUM 5,000 UNITS/ML VIAL 5000 UNITS SUB-Q ×2 (08:50→22:40)
[2024-10-11] MEDS: LACTULOSE 20 GM/30 ML UDC PO (08:53)
[2024-10-11] MEDS: ACETAMINOPHEN 325 MG TABLET 650 MG FEED TUBE (09:01)
--- NOTE | 2024-10-11 11:09 | PCNFU ---
Nutrition Follow-Up Complete: 1. Inadequate oral intake related to small bowel obstruction as evidenced by NPO day 3 2. Increased protein energy intake related to wound healing as evidenced by deep tissue pressure injury to buttock Goal: Advance diet as medically able Address nutrition needs when diet advanced Patient is progressing towards goal. Pt current nutrition is High Fiber with Ensure Enlive BID. Last recorded weight is 68 kg, up from 56.7 kg on admit. Bowel Motility: +BM reported 10/09 Labs Reviewed: BUN 34, Alb 2.8, Na 131 Meds Noted: Colace,Protonix, Lactulose Skin: Deep Tissue-left buttocks Additional Notes: Patient remains on high fiber diet. Oral Intake is improving 55-90% of meals. Diet supplements providing an additional 350 kcal and 20 gm protein. Agree with diet orders. Monitoring intakes, weights, labs, diet advancement, skin, plan of care every 5 days.
--- NOTE | 2024-10-11 11:35 | PM.IMPN ---
Progress Note: A&P Assessment and Plan (1) Small bowel obstruction: Code(s): K56.609 - Unspecified intestinal obstruction, unspecified as to partial versus complete obstruction Status: Acute Assessment and Plan: Patient abdominal x-ray was negative. Patient has rectal tube working. Plan is to continue current treatment. (2) Acute renal failure: Qualifiers: Acute renal failure type: unspecified Qualified Code(s): N17.9 - Acute kidney failure, unspecified Code(s): N17.9 - Acute kidney failure, unspecified Status: Acute Assessment and Plan: Getting better. Will continue to Monitor closely. (3) Catheter-associated urinary tract infection: Qualifiers: Encounter type: initial encounter Indwelling urinary catheter type: indwelling urethral catheter Qualified Code(s): T83.511A - Infection and inflammatory reaction due to indwelling urethral catheter, initial encounter; N39.0 - Urinary tract infection, site not specified Code(s): T83.511A - Infection and inflammatory reaction due to indwelling urethral catheter, initial encounter; N39.0 - Urinary tract infection, site not specified Status: Acute Assessment and Plan: Completed course of IV antibiotics. (4) Hypokalemia: Code(s): E87.6 - Hypokalemia Status: Acute Assessment and Plan: Resolved Plan Patsy Hugo is a 64-year-old female with a medical history significant for dementia, sedentary status, pressure ulcers around the sacrum, constipation, depression, GERD, dyslipidemia, chronic indwelling White catheter A resident of [facility], she was recently evaluated and managed for sepsis, fecal impaction an SBO (09/16-02/07) and discharged . staff were concerned about abdominal pain with nausea and vomiting; symptoms aggravated by meals/fluids, alleviated by fasting; associated with some anxiety and restlessness. Small bowel obstruction and fecal impaction CT scan also shows a large amount of stool in her right colon, which could be contributing to or causing this issue. Hypaque enema done resolved seizures 10/01/2024 aborted with IV Ativan. Loaded with Keppra and will continue Keppra as ordered. Neurology consulted. CT head was negative. Changed to Keppra 750 mg b.i.d. p.o. today UTI (urinary tract infection): Urine culture grew pseudomonas aeruginosa. Sensitivities to all abx Switch from Cefepime 2 gram IVPB q 12. Switched to Levaquin 500 mg IV daily. Completes the course Constipation AND FECAL IMPACTION: Hypaque enema PRN has loose stools f/u c diff, NEGATIVE Discontinue MiraLax, patient declined to take MiraLax, continue lactulose KUB yesterday showed no fecal impaction Hypertension: Blood pressure is well control Hypokalemia: Potassium Chloride 40 meq p.o. and 20 mEq IV Follow-up BMP Hypomagnesemia: corrected Metabolic acidosis switched to bicarb gtt, corrected anemia: no signs of bleeding. transfusion to keep Hb > 7. H&H remained stable . needed transfusion last admission. bilateral hydronephrosis due to mass effect on distal ureter by fecal impaction. Recheck ultrasound with mild persistent right hydronephrosis. fu with urology as op basis. this time ct with left mild hydronephrosis Chronic White catheter Neurogenic bladder History of ulcerative colitis GERD Hypertension Hyperlipidemia History of DVT Chronic anemia Dementia DVT Prophylaxis: heparin sq Code Status: Full code long term resident. October discharge patient to correction tomorrow Subjective Date/time seen: 10/11/24 11:35 Interval history: Patient feels better today, denies abdomen pain nausea vomiting but still has loose stool Afebrile, blood pressure stable Exam Narrative: GENERAL: Irritable in no acute distress. Well-nourished. - EYES: EOMI. Anicteric. - HENT: Moist mucous membranes. - LUNGS: Clear to auscultation bilaterally, no wheezing, rhonchi, or rales. - CARDIOVASCULAR: Regular rate and rhythm. No murmur. No JVD. - ABDOMEN: Soft, non-tender and non-distended. No palpable masses. White catheter in-situ - EXTREMITIES: No edema. Peripheral pulses 2+. Non-tender. - NEUROLOGIC: No focal neurological deficits. CN II-XII grossly intact. - PSYCHIATRIC: Awake, Alert and conversant. Appropriate mood and affect. - SKIN: No rashes or lesions. Warm. - LYMPH: No cervical lymphadenopathy. Objective Data Vital Signs Vital Signs: Vital Signs - 24 hr 10/10/24 12:00 10/10/24 12:00 10/10/24 15:58 Temperature 97.7 F 97.7 F Pulse Rate 95 99 99 Respiratory Rate 18 18 Blood Pressure 122/72 124/68 Pulse Oximetry 99 99 Oxygen Delivery 04/27/25 16:00 10/10/24 19:17 10/10/24 20:00 Temperature 97.4 F L Pulse Rate 95 95 92 Respiratory Rate 16 Blood Pressure 125/52 L Pulse Oximetry 99 Oxygen Delivery 10/11/24 00:00 10/11/24 01:29 10/11/24 03:58 Temperature 97.4 F L 98.1 F Pulse Rate 91 88 89 Respiratory Rate 17 16 Blood Pressure 129/56 L 110/52 L Pulse Oximetry 98 97 Oxygen Delivery 10/11/24 04:00 10/11/24 08:00 10/11/24 08:50 Temperature 97.8 F Pulse Rate 90 91 Respiratory Rate 16 Blood Pressure 119/57 L Pulse Oximetry 98 Oxygen Delivery Room Air 10/11/24 08:50 Temperature Pulse Rate 90 Respiratory Rate Blood Pressure Pulse Oximetry Oxygen Delivery Intake/Output Intake/Output: Intake & Output 10/08/24 10/09/24 10/10/24 10/11/24 23:59 23:59 23:59 23:59 Intake Total 1200 1320 1120 480 Output Total 2670 3550 2200 1550 [facility] -[phone] Meds/Results Medications: Active Medications Generic Name Dose Route Start Last Admin Trade Name Freq PRN Reason Stop Dose Admin Acetaminophen 650 mg 09/27/24 05:03 10/11/24 09:01 Acetaminophen 325 Mg Tablet FEED TUBE 650 mg Q4H PRN Administration Mild Pain (1-3) or Fever Docusate Sodium 100 mg 10/01/24 21:00 10/11/24 08:50 Docusate Sodium 100 Mg Capsule PO 100 mg Q12HR SONIA Administration Heparin Sodium (Porcine) 5,000 units 09/27/24 09:00 10/11/24 08:50 Heparin Sodium 5,000 Units/Ml Vial SUB-Q 5,000 units Q12HR SONIA Administration Lactulose 20 gm 10/05/24 21:00 10/11/24 08:53 Lactulose 20 Gm/30 Ml Udc PO 20 gm Q12H SONIA Administration Levetiracetam 250 mg/ 750 mg 10/07/24 21:00 10/11/24 08:49 Levetiracetam 500 mg PO 750 mg Q12HR SONIA Administration Lorazepam 2 mg 10/01/24 14:15 Lorazepam Inj (*Crx) 2 Mg/Ml Vial IV PUSH Q6H PRN Seizures Magnesium Oxide 400 mg 10/10/24 09:00 10/11/24 08:50 Magnesium Oxide 400 Mg Tablet PO 400 mg DAILY SONIA Administration Melatonin 5 mg 09/27/24 05:03 10/09/24 22:17 Melatonin 5 Mg Tablet PO 5 mg HS PRN Administration Insomnia Miscellaneous Information 0 each 10/05/24 00:01 10/09/24 07:14 Morphine Renew Order If Still Needed Or Will Auto D/C XX 11/04/24 00:00 Not Given [facility] Miscellaneous Information 1 each 10/11/24 00:01 Lorazepam Needs To Be Renewed Or It Will Automatically Discontinue. XX 11/10/24 00:00 [facility] Ondansetron HCl 4 mg 10/07/24 11:59 Ondansetron Hcl Odt 4 Mg Tablet PO Q6H PRN Nausea And Vomiting Oxycodone HCl 5 mg 10/11/24 11:05 Oxycodone Hcl (*Crx) 5 Mg Tab Ir PO Q4H PRN Pain Rated 7-10 Pantoprazole Sodium 20 mg 10/07/24 21:00 10/11/24 08:50 Pantoprazole Sod Sesquihydrate 20 Mg Tab PO 20 mg Q12HR SONIA Administration Polysaccharide Iron Complex 150 mg 10/09/24 08:00 10/11/24 08:50 Polysaccharide Iron Complex 150 Mg Capsule PO 150 mg DAILY@0800 SONIA Administration Sertraline HCl 50 mg 09/29/24 09:00 10/06/24 09:30 Sertraline Hcl 50 Mg Tablet PO 50 mg DAILY SONIA Administration Radiology Results: ITS Impressions Abdomen/Pelvis CT 09/26/24 20:50 IMPRESSION: Small bilateral pleural effusions. Chronic intra and extra hepatic bile duct dilation. Mid small bowel obstruction, transition point may represent an area of adhesion or short segment infectious, inflammatory, or ischemic colitis. Mild left hydronephrosis and urothelial enhancement may represent ascending infection/pyelitis. Cystitis. Proctitis. Small Bowel X-Ray 09/29/24 12:13 IMPRESSION: 1. Persistent mildly dilated loops of small bowel but without discrete transition point and with normal small bowel transit time consistent with resolving versus partial small bowel obstruction. Chest X-Ray 10/01/24 13:48 IMPRESSION: 1: NO ACUTE CARDIOPULMONARY DISEASE. Head CT 10/01/24 14:04 Impression: No acute intracranial hemorrhage or suspicious mass effect. Abdomen X-Ray 10/06/24 14:23 IMPRESSION: NO ACUTE ABDOMINAL FINDINGS.
[2024-10-11 11:57] LABS: Basophils Percent Auto 0.8 % (0.2-1.2); Eosinophils Absolute Auto 0.1 K/mm3 (0-0.3); Eosinophils Percent Auto 3.3 % (0-4.4); Hematocrit 29.1 % (37.0-47.0); Hemoglobin 9.2 g/dL (12.0-15.0); Immature Granulocyte Absolute 0.06 K/mm3 (0.00-0.031); Immature Granulocyte Percent A 1.7 % (0-0.5); Lymphocytes Absolute Auto 0.71 K/mm3 (0.9-3.2); Lymphocytes Percent Auto 19.8 % (18.3-44.2); Mean Corpuscular HGB Conc 31.6 g/dl (32-36); Mean Corpuscular Hemoglobin 29.5 pg (26-34); Mean Corpuscular Volume 93.3 fl (80-100); Mean Platelet Volume 9.4 fl (7.4-10.4); Monocytes Absolute Auto 0.8 K/mm3 (0.1-0.6); Monocytes Percent Auto 22.3 % (2.6-8.5); Neutrophils Absolute Auto 1.9 K/mm3 (1.3-6.7); Neutrophils Percent Auto 52.1 % (45.5-73.1); Platelet Count Result 209 k/mm3 (150-375); Red Blood Count 3.12 M/mm3 (4.2-5.4); Red Cell Distribution Width 15.9 % (11.5-14.5); White Blood Count 3.6 K/mm3 (4.5-10.0)
[2024-10-11 12:08] LABS: Anion Gap 5 mmol/L (4-12); Blood Urea Nitrogen 37 mg/dL (7-17); Calcium 8.9 mg/dL (8.4-10.2); Carbon Dioxide 26 mmol/L (22-30); Chloride 100 mmol/L (98-107); Estimated CRCL calculation 49 ml/min; Estimated Glomerular Filt Rate > 60; Glucose 88 mg/dL (65-110); Magnesium 1.6 mg/dL (1.6-2.3); Phosphorus 3.8 mg/dL (2.5-4.5); Sodium 131 mmol/L (137-145)
[2024-10-11] MEDS: oxyCODONE HCL (*CRX) 5 MG TAB IR PO ×2 (12:17→18:25)
[2024-10-11] MEDS: SODIUM CHLORIDE 500 MG TABLET 1000 MG PO ×2 (13:08→16:34)
[2024-10-11] MEDS: MELATONIN 5 MG TABLET PO (22:41)
[2024-10-11] MEDS: LACTULOSE ENEMA 200 GM/1,000 ML ENEMA RECTAL (23:40)
[2024-10-12] VITALS (7 sets, daily range): BP systolic 113–137; BP diastolic 50–75; PULSE 92–98; RESP 16–20; TEMP 36.3–36.8; O2SAT 98–100
--- NOTE | 2024-10-12 03:10 | PC.NURSE ---
Patient had BM in bed. Explained to patient that she had a BM and has to get cleaned up. Patient yelled and cursed at staff during bath. Patient states You're a bitch to the nurse. Educated patient that it is inappropriate to say those things to the staff that are helping her.
[2024-10-12 05:28] LABS: Basophils Absolute Auto 0.1 K/mm3 (0.0-0.1); Basophils Percent Auto 1.7 % (0.2-1.2); Eosinophils Absolute Auto 0.2 K/mm3 (0-0.3); Eosinophils Percent Auto 3.6 % (0-4.4); Hematocrit 30.1 % (37.0-47.0); Hemoglobin 9.3 g/dL (12.0-15.0); Immature Granulocyte Absolute 0.06 K/mm3 (0.00-0.031); Immature Granulocyte Percent A 1.4 % (0-0.5); Lymphocytes Percent Auto 11.8 % (18.3-44.2); Mean Corpuscular HGB Conc 30.9 g/dl (32-36); Mean Corpuscular Hemoglobin 29.3 pg (26-34); Mean Platelet Volume 10.1 fl (7.4-10.4); Monocytes Absolute Auto 0.8 K/mm3 (0.1-0.6); Monocytes Percent Auto 18.5 % (2.6-8.5); Neutrophils Absolute Auto 2.7 K/mm3 (1.3-6.7); Platelet Count Result 202 k/mm3 (150-375); Red Blood Count 3.17 M/mm3 (4.2-5.4); Red Cell Distribution Width 15.7 % (11.5-14.5); White Blood Count 4.2 K/mm3 (4.5-10.0)
[2024-10-12 05:43] LABS: Anion Gap 9 mmol/L (4-12); Blood Urea Nitrogen 28 mg/dL (7-17); Calcium 9.2 mg/dL (8.4-10.2); Carbon Dioxide 22 mmol/L (22-30); Chloride 103 mmol/L (98-107); Estimated CRCL calculation 52 ml/min; Estimated Glomerular Filt Rate > 60; Glucose 96 mg/dL (65-110); Magnesium 1.9 mg/dL (1.6-2.3); Phosphorus 4.5 mg/dL (2.5-4.5); Potassium 3.4 mmol/L (3.4-5.0); Sodium 134 mmol/L (137-145)
--- NOTE | 2024-10-12 07:39 | P.PNIM_ITS ---
Progress Note: A&P Assessment and Plan (1) Small bowel obstruction: Code(s): K56.609 - Unspecified intestinal obstruction, unspecified as to partial versus complete obstruction Status: Acute Assessment and Plan: Patient abdominal x-ray was negative. Patient has rectal tube working. Plan is to continue current treatment. (2) Acute renal failure: Qualifiers: Acute renal failure type: unspecified Qualified Code(s): N17.9 - Acute kidney failure, unspecified Code(s): N17.9 - Acute kidney failure, unspecified Status: Acute Assessment and Plan: Getting better. Will continue to Monitor closely. (3) Catheter-associated urinary tract infection: Qualifiers: Encounter type: initial encounter Indwelling urinary catheter type: indwelling urethral catheter Qualified Code(s): T83.511A - Infection and inflammatory reaction due to indwelling urethral catheter, initial encounter; N39.0 - Urinary tract infection, site not specified Code(s): T83.511A - Infection and inflammatory reaction due to indwelling urethral catheter, initial encounter; N39.0 - Urinary tract infection, site not specified Status: Acute Assessment and Plan: Completed course of IV antibiotics. (4) Hypokalemia: Code(s): E87.6 - Hypokalemia Status: Acute Assessment and Plan: Resolved Plan Patsy Hugo is a 64-year-old female with a medical history significant for dementia, sedentary status, pressure ulcers around the sacrum, constipation, depression, GERD, dyslipidemia, chronic indwelling White catheter A resident of [facility], she was recently evaluated and managed for sepsis, fecal impaction an SBO (09/16-02/07) and discharged . staff were concerned about abdominal pain with nausea and vomiting; symptoms aggravated by meals/fluids, alleviated by fasting; associated with some anxiety and restlessness. Small bowel obstruction and fecal impaction CT scan also shows a large amount of stool in her right colon, which could be contributing to or causing this issue. Hypaque enema done Nonspecific bowel gas pattern, similar to prior exam on KUB today s/w reglan iv for vomiting control seizures 10/01/2024 aborted with IV Ativan. Loaded with Keppra and will continue Keppra as ordered. Neurology consulted. CT head was negative. c/w Keppra 750 mg b.i.d. p.o. UTI (urinary tract infection): Urine culture grew pseudomonas aeruginosa. Sensitivities to all abx Switch from Cefepime 2 gram IVPB q 12. Switched to Levaquin 500 mg IV daily. Completes the course Constipation AND FECAL IMPACTION: Hypaque enema PRN has loose stools f/u c diff, NEGATIVE Discontinue MiraLax, patient declined to take MiraLax, continue lactulose KUB yesterday showed no fecal impaction Hypertension: Blood pressure is well control Hypokalemia: Potassium Chloride 40 meq p.o. and 20 mEq IV Follow-up BMP Hypomagnesemia: corrected Metabolic acidosis switched to bicarb gtt, corrected anemia: no signs of bleeding. transfusion to keep Hb > 7. H&H remained stable . needed transfusion last admission. bilateral hydronephrosis due to mass effect on distal ureter by fecal impaction. Recheck ultrasound with mild persistent right hydronephrosis. fu with urology as op basis. this time ct with left mild hydronephrosis Chronic White catheter Neurogenic bladder History of ulcerative colitis GERD Hypertension Hyperlipidemia History of DVT Chronic anemia Dementia DVT Prophylaxis: heparin sq Code Status: Full code snf resident. May discharge patient to detention tomorrow Subjective Date/time seen: 10/12/24 07:39 Interval history: Patient vomited the night, patient ate breakfast this morning, patient has a bowel movement, denies abdomen pain Afebrile, blood pressure stable Exam Narrative: GENERAL: Irritable in no acute distress. Well-nourished. - EYES: EOMI. Anicteric. - HENT: Moist mucous membranes. - LUNGS: Clear to auscultation bilateral ly, no wheezing, rhonchi, or rales. - CARDIOVASCULAR: Regular rate and rhyth m. No murmur. No JVD. - ABDOMEN: Soft, non-tender and non-dist ended. No palpable masses. White catheter in-situ - EXTREMITIES: No edema. Peripheral puls es 2+. Non-tender. - NEUROLOGIC: No focal neurological defi cits. CN II-XII grossly intact. - PSYCHIATRIC: Awake, Alert and conversa nt. Appropriate mood and affect. - SKIN: No rashes or lesions. Warm. - LYMPH: No cervical lymphadenopathy. Objective Data Vital Signs Vital Signs: Vital Signs - 24 hr 10/11/24 08:00 10/11/24 08:50 10/11/24 08:50 Temperature 97.8 F Pulse Rate 91 91 Respiratory Rate 16 Blood Pressure 119/57 L Pulse Oximetry 98 Oxygen Delivery Room Air Fraction of Inspired Oxygen 10/11/24 12:00 10/11/24 16:00 10/11/24 19:39 Temperature 97.4 F L 97.5 F L 97.4 F L Pulse Rate 99 96 110 H Respiratory Rate 16 16 20 Blood Pressure 138/57 L 127/55 L 156/95 H Pulse Oximetry 98 98 98 Oxygen Delivery Fraction of Inspired Oxygen 10/11/24 20:00 10/11/24 20:04 10/12/24 00:00 Temperature 97.8 F Pulse Rate 120 H 92 Respiratory Rate 20 20 Blood Pressure 136/61 Pulse Oximetry 95 98 Oxygen Delivery Room Air Fraction of Inspired Oxygen 21 10/12/24 04:00 Temperature 97.3 F L Pulse Rate 92 Respiratory Rate 20 Blood Pressure 136/71 Pulse Oximetry 100 Oxygen Delivery Fraction of Inspired Oxygen Intake/Output Intake/Output: Intake & Output 10/09/24 10/10/24 10/11/24 10/12/24 23:59 23:59 23:59 23:59 Intake Total 1320 1176 834 9851 Output Total 3550 2200 2900 750 [facility] -[phone] 410 Meds/Results Medications: Active Medications Generic Name Dose Route Start Last Admin Trade Name Freq PRN Reason Stop Dose Admin Acetaminophen 650 mg 09/27/24 05:03 10/11/24 09:01 Acetaminophen 325 Mg Tablet FEED TUBE 650 mg Q4H PRN Administration Mild Pain (1-3) or Fever Docusate Sodium 100 mg 10/01/24 21:00 10/11/24 22:41 Docusate Sodium 100 Mg Capsule PO 100 mg Q12HR SONIA Administration Heparin Sodium (Porcine) 5,000 units 09/27/24 09:00 10/11/24 22:40 Heparin Sodium 5,000 Units/Ml Vial SUB-Q 5,000 units Q12HR SONIA Administration Lactulose 20 gm 10/05/24 21:00 10/11/24 22:39 Lactulose 20 Gm/30 Ml Udc PO Not Given Q12H SONIA Levetiracetam 250 mg/ 750 mg 10/07/24 21:00 10/11/24 22:41 Levetiracetam 500 mg PO 750 mg Q12HR SONIA Administration Magnesium Oxide 400 mg 10/10/24 09:00 10/11/24 08:50 Magnesium Oxide 400 Mg Tablet PO 400 mg DAILY SONIA Administration Melatonin 5 mg 09/27/24 05:03 10/11/24 22:41 Melatonin 5 Mg Tablet PO 5 mg HS PRN Administration Insomnia Miscellaneous Information 1 each 10/11/24 00:01 Lorazepam Needs To Be Renewed Or It Will Automatically Discontinue. XX 11/10/24 00:00 CLARIFY [facility] Ondansetron HCl 4 mg 10/07/24 11:59 Ondansetron Hcl Odt 4 Mg Tablet PO Q6H PRN Nausea And Vomiting Oxycodone HCl 5 mg 10/11/24 11:05 10/11/24 18:25 Oxycodone Hcl (*Crx) 5 Mg Tab Ir PO 5 mg Q4H PRN Administration Pain Rated 7-10 Pantoprazole Sodium 20 mg 10/07/24 21:00 10/11/24 22:41 Pantoprazole Sod Sesquihydrate 20 Mg Tab PO 20 mg Q12HR SONIA Administration Polysaccharide Iron Complex 150 mg 10/09/24 08:00 10/11/24 08:50 Polysaccharide Iron Complex 150 Mg Capsule PO 150 mg DAILY@0800 SONIA Administration Sertraline HCl 50 mg 09/29/24 09:00 10/06/24 09:30 Sertraline Hcl 50 Mg Tablet PO 50 mg DAILY SONIA Administration Sodium Chloride 1,000 mg 10/11/24 11:40 10/11/24 16:34 Sodium Chloride 500 Mg Tablet PO 1,000 mg TID SONIA Administration Radiology Results: ITS Impressions Abdomen/Pelvis CT 09/26/24 20:50 IMPRESSION: Small bilateral pleural effusions. Chronic intra and extra hepatic bile duct dilation. Mid small bowel obstruction, transition point may represent an area of adhesion or short segment infectious, inflammatory, or ischemic colitis. Mild left hydronephrosis and urothelial enhancement may represent ascending infection/pyelitis. Cystitis. Proctitis. Small Bowel X-Ray 09/29/24 12:13 IMPRESSION: 1. Persistent mildly dilated loops of small bowel but without discrete transition point and with normal small bowel transit time consistent with resolving versus partial small bowel obstruction. Chest X-Ray 10/01/24 13:48 IMPRESSION: 1: NO ACUTE CARDIOPULMONARY DISEASE. Head CT 10/01/24 14:04 Impression: No acute intracranial hemorrhage or suspicious mass effect. Abdomen X-Ray 10/12/24 06:31 Impression: Nonspecific bowel gas pattern, similar to prior exam. Labs Labs: Laboratory Results - last 24 hr 10/11/24 10/12/24 11:52 04:45 WBC 3.6 L 4.2 L RBC 3.12 L 3.17 L Hgb 9.2 L 9.3 L Hct 29.1 L 30.1 L MCV 93.3 95.0 MCH 29.5 29.3 MCHC 31.6 L 30.9 L RDW 15.9 H 15.7 H Plt Count 209 202 MPV 9.4 10.1 Immature Gran % (Auto) 1.7 H 1.4 H Neut % (Auto) 52.1 63.0 Lymph % (Auto) 19.8 11.8 L Collier % (Auto) 22.3 H 18.5 H Eos % (Auto) 3.3 3.6 Baso % (Auto) 0.8 1.7 H Lymph # (Auto) 0.71 L 0.50 L Collier # (Auto) 0.8 H 0.8 H Eos # (Auto) 0.1 0.2 Baso # (Auto) 0.0 0.1 Abs Immat Gran (auto) 0.06 H 0.06 H Absolute Neuts (auto) 1.9 2.7 Absolute Nucleated RBC 0.000 0.000 Nucleated RBC % 0.0 0.0 Sodium 131 L 134 L Potassium 4.0 3.4 Chloride 100 103 Carbon Dioxide 26 22 Anion Gap 5 9 BUN 37 H 28 H Creatinine 0.90 0.84 Estim Creat Clear Calc 49 52 Estimated GFR > 60 > 60 Glucose 88 96 Calcium 8.9 9.2 Phosphorus 3.8 4.5 Magnesium 1.6 1.9
--- NOTE | 2024-10-12 07:39 | P.DS_ITS ---
DS: Summary Time Spent with Patient Time attestation: Total time spent providing and/or coordinating discharge services: DS: Data Data Completed and Pending Labs on day of discharge: Labs from last 24 hours 10/12/24 10/11/24 04:45 11:52 WBC 4.2 L 3.6 L RBC 3.17 L 3.12 L Hgb 9.3 L 9.2 L Hct 30.1 L 29.1 L MCV 95.0 93.3 MCH 29.3 29.5 MCHC 30.9 L 31.6 L RDW 15.7 H 15.9 H Plt Count 202 209 MPV 10.1 9.4 Immature Gran % (Auto) 1.4 H 1.7 H Neut % (Auto) 63.0 52.1 Lymph % (Auto) 11.8 L 19.8 Dickinson % (Auto) 18.5 H 22.3 H Eos % (Auto) 3.6 3.3 Baso % (Auto) 1.7 H 0.8 Lymph # (Auto) 0.50 L 0.71 L Dickinson # (Auto) 0.8 H 0.8 H Eos # (Auto) 0.2 0.1 Baso # (Auto) 0.1 0.0 Abs Immat Gran (auto) 0.06 H 0.06 H Absolute Neuts (auto) 2.7 1.9 Absolute Nucleated RBC 0.000 0.000 Nucleated RBC % 0.0 0.0 Sodium 134 L 131 L Potassium 3.4 4.0 Chloride 103 100 Carbon Dioxide 22 26 Anion Gap 9 5 BUN 28 H 37 H Creatinine 0.84 0.90 Estim Creat Clear Calc 52 49 Estimated GFR > 60 > 60 Glucose 96 88 Calcium 9.2 8.9 Phosphorus 4.5 3.8 Magnesium 1.9 1.6 Discharge Plan Discharge Consulting providers: Nigel Quiroz Patient Instructions: Heart Failure (DC), Pain Management (DC), Bowel Obstruction (DC) Patient Language: Lithuanian Discharge Medications: No Action sucralfate 1 gram tablet 1 g PO BID pantoprazole 40 mg tablet,delayed release (DR/EC) 40 mg PO DAILY simvastatin 20 mg tablet 20 mg PO HS montelukast 10 mg tablet 10 mg PO DAILY mirtazapine 15 mg tablet 15 mg PO HS sertraline 50 mg tablet 50 mg PO DAILY hydroxyzine pamoate 25 mg capsule 25 mg PO BID lactulose 10 gram/15 mL solution 10 g PO TID PRN (Reason: Constipation) ergocalciferol (vitamin D2) 25,000 unit Capsule 50,000 unit PO WEEKLY Patient Comments: takes on friday Rx Instructions: FRIDAY Acidophilus Capsule 1 cap PO DAILY Daily Multivitamin-Minerals Tablet 1 tablet PO DAILY acetaminophen 500 mg Capsule 1,000 mg PO Q6H PRN (Reason: Pain) ferrous sulfate [Iron (ferrous sulfate)] 325 mg (65 mg iron) Tablet 325 mg PO BID ascorbate calcium (vitamin C) 500 mg Tablet 500 mg PO BID ergocalciferol (vitamin D2) 50 mcg (2,000 unit) tablet 100 mcg PO DAILY potassium chloride 10 mEq tablet extended release 10 meq PO BID polyethylene glycol 3350 [Miralax] 17 gram Powder In Packet 17 g PO QAM Qty: 30 0RF amoxicillin-pot clavulanate 875-125 mg tablet 1 tablet PO Q12H Qty: 6 0RF docusate sodium 100 mg Capsule 100 mg PO BID Qty: 60 0RF Date of admission: 09/27/24 07:29 Primary Care Provider: PaulWyatt Admitting Provider: Joaquim Mccartney Attending physician on admission: Dante Lujan Condition: Stable
[2024-10-12] MEDS: LACTULOSE 20 GM/30 ML UDC PO ×2 (08:28→20:31)
[2024-10-12] MEDS: DOCUSATE SODIUM 100 MG CAPSULE PO ×2 (08:28→20:31)
[2024-10-12] MEDS: MAGNESIUM OXIDE 400 MG TABLET PO (08:28)
[2024-10-12] MEDS: POLYSACCHARIDE IRON COMPLEX 150 MG CAPSULE PO (08:28)
[2024-10-12] MEDS: HEPARIN SODIUM 5,000 UNITS/ML VIAL 5000 UNITS SUB-Q ×2 (08:28→20:31)
[2024-10-12] MEDS: levETIRAcetam Tablet 250 MG, levETIRAcetam Tablet 500 MG 750 MG PO ×2 (08:29→20:31)
[2024-10-12] MEDS: SODIUM CHLORIDE 500 MG TABLET 1000 MG PO ×3 (08:29→17:30)
[2024-10-12] MEDS: PANTOPRAZOLE SOD SESQUIHYDRATE 20 MG TAB PO ×2 (08:29→20:31)
[2024-10-12] MEDS: METOCLOPRAMIDE HCL 10 MG TABLET PO ×2 (12:04→17:30)
[2024-10-12] MEDS: MELATONIN 5 MG TABLET PO (20:31)
--- NOTE | 2024-10-12 20:36 | PC.NURSE ---
Patient reluctant to take HS medications. Patient states Leave me the f*ck alone and get out of my room. Patient states you guys are poisoning me. Educated patient on importance of taking medications, patient did agree to take medications. When nurse was finished giving patient her medications she states You're a bitch.
[2024-10-13] VITALS: BP 103/56; PULSE 84; RESP 20; TEMP 36.8; O2SAT 98
[2024-10-13 04:00] VITALS: BP 124/53; PULSE 90; RESP 20; TEMP 36.4; O2SAT 97
[2024-10-13] MEDS: METOCLOPRAMIDE HCL 10 MG TABLET PO ×2 (04:50→12:37)
[2024-10-13 06:19] LABS: Basophils Percent Auto 1.3 % (0.2-1.2); Eosinophils Absolute Auto 0.2 K/mm3 (0-0.3); Eosinophils Percent Auto 4.9 % (0-4.4); Hematocrit 27.8 % (37.0-47.0); Hemoglobin 8.5 g/dL (12.0-15.0); Immature Granulocyte Absolute 0.04 K/mm3 (0.00-0.031); Immature Granulocyte Percent A 1.3 % (0-0.5); Lymphocytes Absolute Auto 0.63 K/mm3 (0.9-3.2); Lymphocytes Percent Auto 20.7 % (18.3-44.2); Mean Corpuscular HGB Conc 30.6 g/dl (32-36); Mean Corpuscular Hemoglobin 28.8 pg (26-34); Mean Corpuscular Volume 94.2 fl (80-100); Mean Platelet Volume 10.2 fl (7.4-10.4); Monocytes Absolute Auto 0.5 K/mm3 (0.1-0.6); Monocytes Percent Auto 17.8 % (2.6-8.5); Neutrophils Absolute Auto 1.6 K/mm3 (1.3-6.7); Platelet Count Result 209 k/mm3 (150-375); Red Blood Count 2.95 M/mm3 (4.2-5.4); Red Cell Distribution Width 15.8 % (11.5-14.5)
[2024-10-13 06:36] LABS: Anion Gap 5 mmol/L (4-12); Blood Urea Nitrogen 33 mg/dL (7-17); Calcium 8.6 mg/dL (8.4-10.2); Carbon Dioxide 25 mmol/L (22-30); Chloride 102 mmol/L (98-107); Estimated CRCL calculation 49 ml/min; Estimated Glomerular Filt Rate > 60; Glucose 95 mg/dL (65-110); Magnesium 1.9 mg/dL (1.6-2.3); Phosphorus 3.8 mg/dL (2.5-4.5); Potassium 3.4 mmol/L (3.4-5.0); Sodium 132 mmol/L (137-145)
--- NOTE | 2024-10-13 07:46 | P.PNIM_ITS ---
Progress Note: A&P Assessment and Plan (1) Small bowel obstruction: Code(s): K56.609 - Unspecified intestinal obstruction, unspecified as to partial versus complete obstruction Status: Acute Assessment and Plan: Patient abdominal x-ray was negative. Patient has rectal tube working. Plan is to continue current treatment. (2) Acute renal failure: Qualifiers: Acute renal failure type: unspecified Qualified Code(s): N17.9 - Acute kidney failure, unspecified Code(s): N17.9 - Acute kidney failure, unspecified Status: Acute Assessment and Plan: Getting better. Will continue to Monitor closely. (3) Catheter-associated urinary tract infection: Qualifiers: Encounter type: initial encounter Indwelling urinary catheter type: indwelling urethral catheter Qualified Code(s): T83.511A - Infection and inflammatory reaction due to indwelling urethral catheter, initial encounter; N39.0 - Urinary tract infection, site not specified Code(s): T83.511A - Infection and inflammatory reaction due to indwelling urethral catheter, initial encounter; N39.0 - Urinary tract infection, site not specified Status: Acute Assessment and Plan: Completed course of IV antibiotics. (4) Hypokalemia: Code(s): E87.6 - Hypokalemia Status: Acute Assessment and Plan: Resolved Plan Patsy Hugo is a 64-year-old female with a medical history significant for dementia, sedentary status, pressure ulcers around the sacrum, constipation, depression, GERD, dyslipidemia, chronic indwelling White catheter A resident of [facility], she was recently evaluated and managed for sepsis, fecal impaction an SBO (09/16-02/07) and discharged . staff were concerned about abdominal pain with nausea and vomiting; symptoms aggravated by meals/fluids, alleviated by fasting; associated with some anxiety and restlessness. Small bowel obstruction and fecal impaction CT scan also shows a large amount of stool in her right colon, which could be contributing to or causing this issue. Hypaque enema done Nonspecific bowel gas pattern, similar to prior exam on KUB change to reglan po prn for vomiting control Patient tolerated diet well today seizures 10/01/2024 aborted with IV Ativan. Loaded with Keppra and will continue Keppra as ordered. Neurology consulted. CT head was negative. c/w Keppra 750 mg b.i.d. p.o. UTI (urinary tract infection): Urine culture grew pseudomonas aeruginosa. Sensitivities to all abx Switch from Cefepime 2 gram IVPB q 12. Switched to Levaquin 500 mg IV daily. Completes the course Constipation AND FECAL IMPACTION: Hypaque enema PRN has loose stools f/u c diff, NEGATIVE Discontinue MiraLax, patient declined to take MiraLax, continue lactulose KUB 10/12 showed no fecal impaction Hypertension: Blood pressure is well control Hypokalemia: Potassium Chloride 40 meq p.o. and 20 mEq IV Follow-up BMP Hypomagnesemia: corrected Metabolic acidosis switched to bicarb gtt, corrected anemia: no signs of bleeding. transfusion to keep Hb > 7. H&H remained stable . needed transfusion last admission. bilateral hydronephrosis due to mass effect on distal ureter by fecal impaction. Recheck ultrasound with mild persistent right hydronephrosis. fu with urology as op basis. this time ct with left mild hydronephrosis Chronic White catheter Neurogenic bladder History of ulcerative colitis GERD Hypertension Hyperlipidemia History of DVT Chronic anemia Dementia DVT Prophylaxis: heparin sq Code Status: Full code assisted resident discharge patient to [facility] today Subjective Date/time seen: 10/13/24 07:46 Interval history: patient ate breakfast this morning, patient has a bowel movement, denies nausea vomiting abdomen pain Afebrile, blood pressure stable Exam Narrative: GENERAL: Irritable in no acute distress. Well-nourished. - EYES: EOMI. Anicteric. - HENT: Moist mucous membranes. - LUNGS: Clear to auscultation bilateral ly, no wheezing, rhonchi, or rales. - CARDIOVASCULAR: Regular rate and rhyth m. No murmur. No JVD. - ABDOMEN: Soft, non-tender and non-dist ended. No palpable masses. White catheter in-situ - EXTREMITIES: No edema. Peripheral puls es 2+. Non-tender. - NEUROLOGIC: No focal neurological defi cits. CN II-XII grossly intact. - PSYCHIATRIC: Awake, Alert and conversa nt. Appropriate mood and affect. - SKIN: No rashes or lesions. Warm. - LYMPH: No cervical lymphadenopathy. Objective Data Vital Signs Vital Signs: Vital Signs - 24 hr 10/12/24 08:28 10/12/24 08:33 10/12/24 12:00 Temperature 97.9 F 97.9 F Pulse Rate 97 98 Respiratory Rate 16 16 Blood Pressure 128/75 137/52 L Pulse Oximetry 100 100 99 Oxygen Delivery Room Air 10/12/24 15:14 10/12/24 19:34 10/12/24 20:00 Temperature 97.4 F L 98.2 F Pulse Rate 98 98 Respiratory Rate 16 20 Blood Pressure 122/50 L 113/57 L Pulse Oximetry 98 98 Oxygen Delivery Room Air 10/13/24 00:00 10/13/24 04:00 Temperature 98.3 F 97.5 F L Pulse Rate 84 90 Respiratory Rate 20 20 Blood Pressure 103/56 L 124/53 L Pulse Oximetry 98 97 Oxygen Delivery Intake/Output Intake/Output: Intake & Output 10/10/24 10/11/24 10/12/24 10/13/24 23:59 23:59 23:59 23:59 Intake Total 4234 484 5363 600 Output Total 2200 2900 1500 950 [id number] -8906 -4790 580 -350 Meds/Results Medications: Active Medications Generic Name Dose Route Start Last Admin Trade Name Freq PRN Reason Stop Dose Admin Acetaminophen 650 mg 09/27/24 05:03 10/11/24 09:01 Acetaminophen 325 Mg Tablet FEED TUBE 650 mg Q4H PRN Administration Mild Pain (1-3) or Fever Docusate Sodium 100 mg 10/01/24 21:00 10/12/24 20:31 Docusate Sodium 100 Mg Capsule PO 100 mg Q12HR SONIA Administration Heparin Sodium (Porcine) 5,000 units 09/27/24 09:00 10/12/24 20:31 Heparin Sodium 5,000 Units/Ml Vial SUB-Q 5,000 units Q12HR SONIA Administration Lactulose 20 gm 10/05/24 21:00 10/12/24 20:31 Lactulose 20 Gm/30 Ml Udc PO 20 gm Q12H SONIA Administration Levetiracetam 250 mg/ 750 mg 10/07/24 21:00 10/12/24 20:31 Levetiracetam 500 mg PO 750 mg Q12HR SONIA Administration Magnesium Oxide 400 mg 10/10/24 09:00 10/12/24 08:28 Magnesium Oxide 400 Mg Tablet PO 400 mg DAILY SONIA Administration Melatonin 5 mg 09/27/24 05:03 10/12/24 20:31 Melatonin 5 Mg Tablet PO 5 mg HS PRN Administration Insomnia Metoclopramide HCl 10 mg 10/12/24 12:00 10/13/24 04:50 Metoclopramide Hcl 10 Mg Tablet PO 10 mg Q6HR SONIA Administration Miscellaneous Information 1 each 10/11/24 00:01 Lorazepam Needs To Be Renewed Or It Will Automatically Discontinue. XX 11/10/24 00:00 CLARIFY SONIA Ondansetron HCl 4 mg 10/07/24 11:59 Ondansetron Hcl Odt 4 Mg Tablet PO Q6H PRN Nausea And Vomiting Oxycodone HCl 5 mg 10/11/24 11:05 10/11/24 18:25 Oxycodone Hcl (*Crx) 5 Mg Tab Ir PO 5 mg Q4H PRN Administration Pain Rated 7-10 Pantoprazole Sodium 20 mg 10/07/24 21:00 10/12/24 20:31 Pantoprazole Sod Sesquihydrate 20 Mg Tab PO 20 mg Q12HR SONIA Administration Polysaccharide Iron Complex 150 mg 10/09/24 08:00 10/12/24 08:28 Polysaccharide Iron Complex 150 Mg Capsule PO 150 mg DAILY@0800 SONIA Administration Sertraline HCl 50 mg 09/29/24 09:00 10/06/24 09:30 Sertraline Hcl 50 Mg Tablet PO 50 mg DAILY SONIA Administration Sodium Chloride 1,000 mg 10/11/24 11:40 10/12/24 17:30 Sodium Chloride 500 Mg Tablet PO 1,000 mg TID SONIA Administration Radiology Results: ITS Impressions Abdomen/Pelvis CT 09/26/24 20:50 IMPRESSION: Small bilateral pleural effusions. Chronic intra and extra hepatic bile duct dilation. Mid small bowel obstruction, transition point may represent an area of adhesion or short segment infectious, inflammatory, or ischemic colitis. Mild left hydronephrosis and urothelial enhancement may represent ascending infection/pyelitis. Cystitis. Proctitis. Small Bowel X-Ray 09/29/24 12:13 IMPRESSION: 1. Persistent mildly dilated loops of small bowel but without discrete transition point and with normal small bowel transit time consistent with resolving versus partial small bowel obstruction. Chest X-Ray 10/01/24 13:48 IMPRESSION: 1: NO ACUTE CARDIOPULMONARY DISEASE. Head CT 10/01/24 14:04 Impression: No acute intracranial hemorrhage or suspicious mass effect. Abdomen X-Ray 10/12/24 06:31 Impression: Nonspecific bowel gas pattern, similar to prior exam. Labs Labs: Laboratory Results - last 24 hr 10/13/24 04:55 WBC 3.0 L RBC 2.95 L Hgb 8.5 L Hct 27.8 L MCV 94.2 MCH 28.8 MCHC 30.6 L RDW 15.8 H Plt Count 209 MPV 10.2 Immature Gran % (Auto) 1.3 H Neut % (Auto) 54.0 Lymph % (Auto) 20.7 Mineral % (Auto) 17.8 H Eos % (Auto) 4.9 H Baso % (Auto) 1.3 H Lymph # (Auto) 0.63 L Mineral # (Auto) 0.5 Eos # (Auto) 0.2 Baso # (Auto) 0.0 Abs Immat Gran (auto) 0.04 H Absolute Neuts (auto) 1.6 Absolute Nucleated RBC 0.000 Nucleated RBC % 0.0 Sodium 132 L Potassium 3.4 Chloride 102 Carbon Dioxide 25 Anion Gap 5 BUN 33 H Creatinine 0.90 Estim Creat Clear Calc 49 Estimated GFR > 60 Glucose 95 Calcium 8.6 Phosphorus 3.8 Magnesium 1.9
--- NOTE | 2024-10-13 07:47 | P.DS_ITS ---
DS: Admitting Diagnosis Discharge Date 10/13/24 Admitting Diagnosis (1) Small bowel obstruction: Code(s): K56.609 - Unspecified intestinal obstruction, unspecified as to partial versus complete obstruction Status: Acute Assessment and Plan: Patient abdominal x-ray was negative. Patient has rectal tube working. Plan is to continue current treatment. (2) Acute renal failure: Qualifiers: Acute renal failure type: unspecified Qualified Code(s): N17.9 - Acute kidney failure, unspecified Code(s): N17.9 - Acute kidney failure, unspecified Status: Acute Assessment and Plan: Getting better. Will continue to Monitor closely. (3) Catheter-associated urinary tract infection: Qualifiers: Encounter type: initial encounter Indwelling urinary catheter type: indwelling urethral catheter Qualified Code(s): T83.511A - Infection and inflammatory reaction due to indwelling urethral catheter, initial encounter; N39.0 - Urinary tract infection, site not specified Code(s): T83.511A - Infection and inflammatory reaction due to indwelling urethral catheter, initial encounter; N39.0 - Urinary tract infection, site not specified Status: Acute Assessment and Plan: Completed course of IV antibiotics. (4) Hypokalemia: Code(s): E87.6 - Hypokalemia Status: Acute Assessment and Plan: Resolved DS: Discharge Diagnosis Discharge Diagnosis (1) Small bowel obstruction: Code(s): K56.609 - Unspecified intestinal obstruction, unspecified as to partial versus complete obstruction Status: Acute Assessment and Plan: Patient abdominal x-ray was negative. Patient has rectal tube working. Plan is to continue current treatment. (2) Acute renal failure: Qualifiers: Acute renal failure type: unspecified Qualified Code(s): N17.9 - Acute kidney failure, unspecified Code(s): N17.9 - Acute kidney failure, unspecified Status: Acute Assessment and Plan: Getting better. Will continue to Monitor closely. (3) Catheter-associated urinary tract infection: Qualifiers: Encounter type: initial encounter Indwelling urinary catheter type: indwelling urethral catheter Qualified Code(s): T83.511A - Infection and inflammatory reaction due to indwelling urethral catheter, initial encounter; N39.0 - Urinary tract infection, site not specified Code(s): T83.511A - Infection and inflammatory reaction due to indwelling urethral catheter, initial encounter; N39.0 - Urinary tract infection, site not specified Status: Acute Assessment and Plan: Completed course of IV antibiotics. (4) Hypokalemia: Code(s): E87.6 - Hypokalemia Status: Acute Assessment and Plan: Resolved DS: Summary Hospital Course Hospital Course: Patsy Hugo is a 64-year-old female with a medical history significant for dementia, sedentary status, pressure ulcers around the sacrum, constipation, depression, GERD, dyslipidemia, chronic indwelling White catheter, A resident of [facility], she was recently evaluated and managed for sepsis, fecal impaction an SBO (09/16-02/07) and discharged . staff were concerned about abdominal pain with nausea and vomiting; symptoms aggravated by meals/fluids, alleviated by fasting; associated with some anxiety and restlessness. Patient was brought to ED for evaluation treatment The following med issues have been addressed during hospitalization Small bowel obstruction and fecal impaction CT scan also shows a large amount of stool in her right colon, which could be contributing to or causing this issue. Hypaque enema done Nonspecific bowel gas pattern, similar to prior exam on KUB change to reglan po prn for vomiting control Patient tolerated diet well today seizures 10/01/2024 aborted with IV Ativan. Loaded with Keppra and will continue Keppra as ordered. Neurology consulted. CT head was negative. c/w Keppra 750 mg b.i.d. p.o. UTI (urinary tract infection): Urine culture grew pseudomonas aeruginosa. Sensitivities to all abx Switch from Cefepime 2 gram IVPB q 12. Switched to Levaquin 500 mg IV daily. Completes the course Constipation AND FECAL IMPACTION: Hypaque enema PRN has loose stools f/u c diff, NEGATIVE Discontinue MiraLax, patient declined to take MiraLax, continue lactulose KUB 10/12 showed no fecal impaction Hypertension: Blood pressure is well control Hypokalemia: Potassium Chloride 40 meq p.o. and 20 mEq IV Follow-up BMP corrected Hypomagnesemia: corrected Metabolic acidosis Received bicarb gtt, corrected anemia: no signs of bleeding. transfusion to keep Hb > 7. H&H remained stable . needed transfusion last admission. bilateral hydronephrosis due to mass effect on distal ureter by fecal impaction. Recheck ultrasound with mild persistent right hydronephrosis. fu with urology as op basis. this time ct with left mild hydronephrosis Chronic White catheter Neurogenic bladder History of ulcerative colitis stable Chronic anemia stable Dementia stable jail resident discharge patient to correction today Time Spent with Patient Time attestation: Total time spent providing and/or coordinating discharge services: Exam Narrative: GENERAL no acute distress. Well-nourished. - EYES: EOMI. Anicteric. - HENT: Moist mucous membranes. - LUNGS: Clear to auscultation bilateral ly, no wheezing, rhonchi, or rales. - CARDIOVASCULAR: Regular rate and rhyth m. No murmur. No JVD. - ABDOMEN: Soft, non-tender and non-dist ended. No palpable masses. White catheter in-situ - EXTREMITIES: No edema. Peripheral puls es 2+. Non-tender. - NEUROLOGIC: No focal neurological defi cits. CN II-XII grossly intact. - PSYCHIATRIC: Awake, Alert and conversa nt. Appropriate mood and affect. - SKIN: No rashes or lesions. Warm. - LYMPH: No cervical lymphadenopathy. DS: Data Data Completed and Pending Labs on day of discharge: Labs from last 24 hours 10/13/24 04:55 WBC 3.0 L RBC 2.95 L Hgb 8.5 L Hct 27.8 L MCV 94.2 MCH 28.8 MCHC 30.6 L RDW 15.8 H Plt Count 209 MPV 10.2 Immature Gran % (Auto) 1.3 H Neut % (Auto) 54.0 Lymph % (Auto) 20.7 [place] % (Auto) 17.8 H Eos % (Auto) 4.9 H Baso % (Auto) 1.3 H Lymph # (Auto) 0.63 L [place] # (Auto) 0.5 Eos # (Auto) 0.2 Baso # (Auto) 0.0 Abs Immat Gran (auto) 0.04 H Absolute Neuts (auto) 1.6 Absolute Nucleated RBC 0.000 Nucleated RBC % 0.0 Sodium 132 L Potassium 3.4 Chloride 102 Carbon Dioxide 25 Anion Gap 5 BUN 33 H Creatinine 0.90 Estim Creat Clear Calc 49 Estimated GFR > 60 Glucose 95 Calcium 8.6 Phosphorus 3.8 Magnesium 1.9 Discharge Plan Discharge Attending physician on discharge: Catarino Graves Consulting providers: Nigel Quiroz Discharging Clinician: Catarino Graves Anticipated Discharge Date/Time: 10/12/24 07:40 Patient Disposition: SNF Activity: as tolerated Diet: as tolerated and high fiber Patient Instructions: Heart Failure (DC), Pain Management (DC), Bowel Obstruction (DC) Patient Language: Romanian Stand Alone Forms: General Discharge Information Follow-up/Referrals: Paul,MD Wyatt [Primary Care Provider] - (See PCP in 1 week) Discharge Medications: New polysaccharide iron complex 150 mg iron Capsule 150 mg PO DAILY@0800 Qty: 6 0RF pantoprazole [Protonix] 20 mg Tablet,Delayed Release (Dr/Ec) 20 mg PO Q12HR Qty: 60 1RF magnesium oxide 400 mg (241.3 mg magnesium) Tablet 400 mg PO DAILY Qty: 60 0RF levetiracetam 250 mg Tablet 750 mg PO Q12HR Qty: 180 1RF docusate sodium 100 mg Capsule 100 mg PO Q12HR Qty: 60 1RF lactulose 10 gram/15 mL Solution 20 g PO Q12H Qty: 1800 1RF oxycodone 5 mg Tablet 5 mg PO Q4H PRN (Reason: Pain Rated 7-10) Qty: 15 0RF metoclopramide HCl [Reglan] 10 mg tablet 10 mg PO Q6H PRN (Reason: nausea and vomiting) Qty: 60 0RF Continued sucralfate 1 gram tablet 1 g PO BID pantoprazole 40 mg tablet,delayed release (DR/EC) 40 mg PO DAILY simvastatin 20 mg tablet 20 mg PO HS montelukast 10 mg tablet 10 mg PO DAILY mirtazapine 15 mg tablet 15 mg PO HS hydroxyzine pamoate 25 mg capsule 25 mg PO BID ergocalciferol (vitamin D2) 25,000 unit Capsule 50,000 unit PO WEEKLY Patient Comments: takes on friday Rx Instructions: FRIDAY Acidophilus Capsule 1 cap PO DAILY Daily Multivitamin-Minerals Tablet 1 tablet PO DAILY acetaminophen 500 mg Capsule 1,000 mg PO Q6H PRN (Reason: Pain) ascorbate calcium (vitamin C) 500 mg Tablet 500 mg PO BID ergocalciferol (vitamin D2) 50 mcg (2,000 unit) tablet 100 mcg PO DAILY potassium chloride 10 mEq tablet extended release 10 meq PO BID docusate sodium 100 mg Capsule 100 mg PO BID Qty: 60 0RF Discontinued sertraline 50 mg tablet 50 mg PO DAILY lactulose 10 gram/15 mL solution 10 g PO TID PRN (Reason: Constipation) ferrous sulfate [Iron (ferrous sulfate)] 325 mg (65 mg iron) Tablet 325 mg PO BID polyethylene glycol 3350 [Miralax] 17 gram Powder In Packet 17 g PO QAM Qty: 30 0RF amoxicillin-pot clavulanate 875-125 mg tablet 1 tablet PO Q12H Qty: 6 0RF Date of admission: 09/27/24 07:29 Primary Care Provider: PaulWyatt Admitting Provider: Joaquim Mccartney Attending physician on admission: Jamar Xiong Condition: Stable
[2024-10-13 08:00] VITALS: BP 116/47; PULSE 91; RESP 16; TEMP 36.6; O2SAT 99
[2024-10-13] MEDS: DOCUSATE SODIUM 100 MG CAPSULE PO (09:17)
[2024-10-13] MEDS: SODIUM CHLORIDE 500 MG TABLET 1000 MG PO ×2 (09:17→12:36)
[2024-10-13] MEDS: levETIRAcetam Tablet 250 MG, levETIRAcetam Tablet 500 MG 750 MG PO (09:17)
[2024-10-13] MEDS: HEPARIN SODIUM 5,000 UNITS/ML VIAL 5000 UNITS SUB-Q (09:18)
[2024-10-13] MEDS: MAGNESIUM OXIDE 400 MG TABLET PO (09:18)
[2024-10-13] MEDS: LACTULOSE 20 GM/30 ML UDC PO (09:18)
[2024-10-13] MEDS: POLYSACCHARIDE IRON COMPLEX 150 MG CAPSULE PO (09:18)
[2024-10-13] MEDS: PANTOPRAZOLE SOD SESQUIHYDRATE 20 MG TAB PO (09:18)
[2024-10-13] MEDS: oxyCODONE HCL (*CRX) 5 MG TAB IR PO (12:38)
[2024-10-13 19:13] LABS: Calprotectin, Stool 277 mcg/g
== END 2024-10-13 14:20 | DRG 699 ==
LOC: ANHED 22:14 → ANH3MEDSUR 23:02 → ANH2MED 23:26
PROVIDERS: General Practice; Internal Medicine; Nurse Practitioner Family; Physician Assistant; Admitting Provider Internal Medicine; Emergency Provider Emergency Medicine; PCP Internal Medicine; Visit Provider Hospitalist
DX: T83.511A Infection and inflammatory reaction due to indwelling urethral catheter, initial encounter (principal); E87.21 Acute metabolic acidosis; K56.609 Unspecified intestinal obstruction, unspecified as to partial versus complete obstruction; N17.9 Acute kidney failure, unspecified; N13.6 Pyonephrosis; B96.5 Pseudomonas (aeruginosa) (mallei) (pseudomallei) as the cause of diseases classified elsewhere; R56.9 Unspecified convulsions; E87.6 Hypokalemia; K21.9 Gastro-esophageal reflux disease without esophagitis; F03.90 Unspecified dementia, unspecified severity, without behavioral disturbance, psychotic disturbance, mood disturbance, and anxiety; F32.A Depression, unspecified; L89.329 Pressure ulcer of left buttock, unspecified stage; L89.319 Pressure ulcer of right buttock, unspecified stage; L89.150 Pressure ulcer of sacral region, unstageable; E78.5 Hyperlipidemia, unspecified; K56.41 Fecal impaction; I10 Essential (primary) hypertension; E83.42 Hypomagnesemia; D64.9 Anemia, unspecified; N31.9 Neuromuscular dysfunction of bladder, unspecified; G31.9 Degenerative disease of nervous system, unspecified; I25.10 Atherosclerotic heart disease of native coronary artery without angina pectoris; M19.90 Unspecified osteoarthritis, unspecified site; Z86.718 Personal history of other venous thrombosis and embolism; Z95.828 Presence of other vascular implants and grafts; Z74.01 Bed confinement status
CPT/HCPCS: 36415; 70450; 71045; 74018; 74177; 74250; 80048; 80053; 81001; 82948; 83605; 83690; 83735; 83993; 84100; 84146; 84436; 84443; 85025; 85027; 87040; 87086; 87186; 87493; 93005; 96361; 96365; 96375; 99285; A9270; G0378; J0692; J0696; J1644; J1953; J1956; J2060; J2270; J2405; J2470; J2765; J3475; J3480; J7030; J7040; J7070; Q9967

== ENCOUNTER 2024-10-24 17:30 | Inpatient (IN) | payer MEDICARE, MEDICAID, SELFPAY ==
[2024-10-24] VITALS (13 sets, daily range): BP systolic 108–145; BP diastolic 55–94; PULSE 76–122; RESP 16–18; TEMP 36–36.4; O2SAT 94–99; BMI 24.0
--- NOTE | ~2024-10-24 | XR_ITS ---
Portable chest x-ray Comparison: 10/30/2024 Clinical History: Respiratory failure Findings: Endotracheal tube, NG tube, and right IJ line are in place. Possible retrocardiac airspace disease. Right lung essentially clear. Cardiomediastinal silhouette is stable. Bones and soft tissu es are unremarkable. Impression: Support tubes, as above. Left lower lobe atelectasis versus pneumonia. Reviewed, dictated and finalized at location . Impression: Support tubes, as above. Left lower lobe atelectasis versus pneumonia.
--- NOTE | ~2024-10-24 | XR_ITS ---
EXAMINATION: XR cholangiogram surg 1st inj DATE: 10/29/2024 17:29 INDICATION: Intraoperative evaluation during laparoscopic cholecystectomy TECHNIQUE: Multiple fluoroscopic images of the right upper quadrant were obtained during intraoperati ve cholangiography. A total of 102 fluoroscopic images were obtained. The amount of fluoroscopy time used during this procedure was 0.8 minutes. Total DAP was 3.078 Gycm^2. COMPARISON: None. FINDINGS: Cannulation of the cystic duct and contrast injection demonstrating prominent dilated commo n hepatic and bile duct which tapers distally. There is slowly mobile material within the common bile duct with appearance favoring sludge over very small gallstones. Contrast extends into the duodenum where there is a normal mucosal fold pattern.. IMPRESSION: 1. Contrast injection delineates slowly mobile nonobstructing material within the dilated common hepa tic and bile ducts the appearance of which favors sludge over very small gallstones. Reviewed, dictated and finalized at location A. IMPRESSION: 1. Contrast injection delineates slowly mobile nonobstructing material within t he dilated common hepatic and bile ducts the appearance of which favors sludge over very small gallstones.
--- NOTE | ~2024-10-24 | XR_ITS ---
XR chest 1V portable Ordering provider: Zhanna Loco MD History: 64 years Female with . et TUBE POSITION . Comparison: October 29, 2024 FINDINGS/impression: MEDIASTINUM: The cardiac silhouette is not enlarged. Endotracheal tube is seen in the right main bronchus. Retraction is advised. Right central line is seen with the tip overlying superior vena cava. Nasogastric tube is extending to the stomach. Other appearances are unchanged from previous examination. Reviewed, dictated and finalized at location A.
--- NOTE | ~2024-10-24 | CT_ITS ---
EXAMINATION: CT abdomen pelvis w con DATE: 11/05/2024 11:40 INDICATION: Pelvic fluid on recent CT TECHNIQUE: Computed tomography (CT) of the abdomen and pelvis was performed with 100 mL Omnipaque-350 intravenous contrast. Automated exposure control and iterative reconstruction technique were employe d. The dose-length product was 1035.58 mGy-cm. COMPARISON: None FINDINGS: Small posterior layering bilateral pleural effusions with dependent atelectasis in the lower lobes. H eart size is normal with right atrial enlargement. No pericardial effusion. There is a 2.7 x 1.2 x 1. 2 cm paraesophageal lymph node at the level of the coronary sinus. Interval cholecystectomy with mult ilobulated gas and complex fluid collection which extends from anterior to the liver and the right up per quadrant caudally to the level of the pelvic brim in the right lower quadrant. There are regions of higher attenuation without layering dependently suggesting layering hematocrit levels related to p ostoperative hemorrhage. Portion of the collection along the gallbladder fossa and anterior to the li martin appears likely subcapsular. There is been improvement in now mild intrahepatic biliary ductal dil ation. The common bile duct is now normal in caliber. Pancreas and bilateral adrenal glands are sid l. There are multiple low-attenuation lesions at the pancreas a some which appear branching and other s appearing more cystic which are not evident on the prior imaging. There is however homogeneous surr ounding parenchymal enhancement the spleen and there is no evident thrombus within the contrast opaci fied draining splenic veins. Persistent mild bilateral hydronephrosis. The bladder is decompressed wi th a White catheter in place. There is contrast material extending from the cecum to the rectum. No d ilated bowel to suggest obstruction. Is also a minimal amount of contrast within the normal appendix. The uterus is not identified and has likely been surgically resected. No significant change in a 4.2 x 2.7 cm loculated fluid collection in the deep right pelvis with thin peripheral enhancing rim whic h remains without significant surrounding inflammatory stranding. No pathologically enlarged abdomina l or pelvic lymphadenopathy. Infrarenal IVC filter. The inferior vena cava appears flattened most pro minently above the level of the IVC filter to the right atrium which suggests hypovolemia. Severe lum bar spondylosis. IMPRESSION: 1. Postoperative change interval cholecystectomy with multilobulated complex fluid collection in the right upper and lower quadrants including at the gallbladder fossa with appearance most suggestive of postoperative hematoma including a hepatic subcapsular component. The cephalad inferior vena cava ap pears flattened which suggests secondary hypovolemia. Correlate with hemoglobin and hematocrit levels . 2. 4.2 x 2.7 cm loculated fluid collection in the deep right pelvis with thin peripheral enhancing wa ll but with no significant surrounding inflammatory stranding to elevate suspicion for abscess. This has not significantly changed since CT dated 09/26/2024 preceding the prior surgery and although image s are not available for an earlier study from 03/07/2021 the report from that study describes a right pelvic cystic mass suggests this could also represent a chronic right adnexal cyst, peritoneal inclus ion cyst or lymphangioma. 3. Numerous new small hypoenhancing lesions scattered throughout the spleen without evidence splenic venous thrombosis which given the relatively rapid development suggests possible infectious etiology. 4. Chronic bilateral hydronephrosis. Reviewed, dictated and finalized at location A. IMPRESSION: 1. Postoperative change interval cholecystectomy with multilobulated complex fl uid collection in the right upper and lower quadrants including at the gallblad bartolome fossa with appearance most suggestive of postoperative hematoma including a hepatic subcapsular component. The cephalad inferior vena cava appears flatten ed which suggests secondary hypovolemia. Correlate with hemoglobin and hematocr it levels. 2. 4.2 x 2.7 cm loculated fluid collection in the deep right pelvis with thin p eripheral enhancing wall but with no significant surrounding inflammatory stran ding to elevate suspicion for abscess. This has not significantly changed since CT dated 09/26/2024 preceding the prior surgery and although images are not krunal ilable for an earlier study from 03/07/2021 the report from that study describes a right pelvic cystic mass suggests this could also represent a chronic right adnexal cyst, peritoneal inclusion cyst or lymphangioma. 3. Numerous new small hypoenhancing lesions scattered throughout the spleen wit hout evidence splenic venous thrombosis which given the relatively rapid develo pment suggests possible infectious etiology. 4. Chronic bilateral hydronephrosis.
--- NOTE | ~2024-10-24 | XR_ITS ---
EXAMINATION: XR enema water soluble DATE: 10/25/2024 13:48 INDICATION: Large bowel obstruction TECHNIQUE: A tire tester radiograph was obtained. A catheter was inserted into the patient's rectum. Contra st was infused by gravity. Fluoroscopic spot images and conventional radiographs were obtained. Fluo roscopy exposure time was 1.0 minutes. A total of 8 overhead radiographs and 46 fluoroscopic images w ere recorded. Total DAP was 39.736 mGycm^2 COMPARISON: None. FINDINGS: Contrast was observed extending to the cecum. There is a moderate amount of stool scattered throughou t the colon which appears redundant with tortuous sigmoid and transverse colon. Normal haustral patte rn with no fixed stricture is or evident mucosal irregularities identified. Assessment for polypoid f illing defects is essentially nondiagnostic due to the large amount of stool. Right paravertebral IVC filter in expected position with proximal tip at the level of the superior endplate of L2. No dilate d gas-filled small bowel to suggest obstruction. IMPRESSION: 1. Moderate amount of scattered colonic stool suggestive of constipation with no evident strictures/o bstruction. Reviewed, dictated and finalized at location A. IMPRESSION: 1. Moderate amount of scattered colonic stool suggestive of constipation with n o evident strictures/obstruction.
--- NOTE | ~2024-10-24 | XR_ITS ---
XR chest ET placement Ordering provider: Zhanna Loco MD History: 64 years Female with . Intubation . Comparison: October 01, 2024 FINDINGS: MEDIASTINUM: The cardiac silhouette is not enlarged. Endotracheal tube with the tip in the right main bronchus. Retraction by about 3 cm is advised. Right central line with the tip overlying superior ve na cava is noted. Nasogastric tube is noted with the tip in the fundus of the stomach. LUNGS: No effusions or pneumothorax. Opacification the left lung base suggestive of atelectasis versu s pneumonia. OTHER: No free air under the diaphragm. Dextroscoliosis. Contrast is seen in the region. IMPRESSION: Left basilar atelectasis versus pneumonia. Endotracheal tube should be retracted by about 3 cm. Reviewed, dictated and finalized at location A.
--- NOTE | ~2024-10-24 | CT_ITS ---
CT abdomen pelvis w con Ordering provider: Jed Mckeon MD History: 64 years Female with . Nausea vomiting, left-sided abdominal pain . Comparison: September 26, 2024 Technique: CT abdomen and pelvis with IV and without oral contrast. Automated exposure control and it erative reconstruction technique were employed. The dose-length product was 367.97 mGy-cm. 100 mL Omn ipaque 350 was given IV. Findings: VISUALIZED LOWER CHEST: Dependent atelectatic changes. 2 mm nodule is seen in the right lower lobe ne ar to the oblique fissure laterally. UPPER ABDOMINAL ORGANS: Liver: Dilated intrahepatic bile ducts. Dilated CBD with possible stones in the common bile duct. Hep atomegaly. Gallbladder: Cholelithiasis. Spleen: Normal. Stomach/duodenum: Normal. Pancreas: Normal. Slightly prominent pancreatic duct. Follow-up advised. Adrenals: Normal. Kidneys: Bilateral hydronephrotic changes with dilated ureters. Tiny cysts are seen in both kidneys. The kidneys appear slightly hypodense which may indicate infection. Clinical correlation advised. PELVIC ORGANS: The bladder shows thickened wall which may indicate cystitis versus infiltrative proce ss. Further evaluation advised. White catheter is seen in the bladder with air. BOWEL AND MESENTERY: Colon: Mild sigmoid diverticulosis without diverticulitis. Thickened wall of the rectum is seen sugge stive of proctitis. Clinical evaluation advised. Distended colon with gases is noted. No evidence of appendicitis. Small Bowel: Normal. No obstruction. Peritoneum/mesentery: No free air or free fluid. No mesenteric lymphadenopathy. Fluid collection is seen in the right pararectal area measures 3.1 x 2.6x5 cm. This may represent an abscess or fluid collection. Follow-up advised. RETROPERITONEUM: Mild atheromatous disease of the abdominal aorta. IVC filter is noted. No retroperi toneal lymphadenopathy. MUSCULOSKELETAL: Superficial soft tissues: The superficial soft tissues are normal. Bones: Age appropriate degenerative changes of the spine. IMPRESSION: 1. No evidence of appendicitis, diverticulitis or intestinal obstruction. 2. Highly suggestive of abscess in the right pararectal area. 3. Markedly thickened rectal wall with distended colon by gases. Further evaluation of the rectum is advised. 4. Hypodensities in both kidneys which may indicate pyelonephritis. Dilated ureters are also noted. 5. Thickened wall of the urinary bladder which may indicate cystitis versus infiltrative process. Fu rther evaluation advised. 6. Intrahepatic and extrahepatic biliary dilatation. 7. Cholelithiasis. 8. Hepatomegaly. Reviewed, dictated and finalized at location A. IMPRESSION: 1. No evidence of appendicitis, diverticulitis or intestinal obstruction. 2. Highly suggestive of abscess in the right pararectal area. 3. Markedly thickened rectal wall with distended colon by gases. Further evalu ation of the rectum is advised. 4. Hypodensities in both kidneys which may indicate pyelonephritis. Dilated ur eters are also noted. 5. Thickened wall of the urinary bladder which may indicate cystitis versus in filtrative process. Further evaluation advised. 6. Intrahepatic and extrahepatic biliary dilatation. 7. Cholelithiasis. 8. Hepatomegaly.
--- NOTE | ~2024-10-24 | XR_ITS ---
EXAMINATION: XR chest 1V portable DATE: 11/01/2024 06:10 INDICATION: Intubation TECHNIQUE: frontal view of the chest was obtained. COMPARISON: Chest radiograph dated 10/31/2024 FINDINGS: Endotracheal tube tip 4.0 cm above the bernardino. Orogastric tube proximal side port below the gastroeso phageal junction with distal tip collimated beyond the inferior margin of the field of imaging. Dual- lumen right internal jugular central venous catheter with distal tip at the caudal superior vena cava . Skin avery project over the epigastric region. Persistent opacities in the left lower lung zone which could represent atelectasis or pneumonia. No p ulmonary edema, pleural effusion or pneumothorax. The cardiomediastinal silhouette is normal. IMPRESSION: 1. Left basilar opacities which could represent atelectasis or pneumonia. 2. Lines and tubes in expected position. Reviewed, dictated and finalized at location A.
--- NOTE | ~2024-10-24 | XR_ITS ---
EXAMINATION: XR chest 1V portable DATE: 10/30/2024 03:00 INDICATION: Endotracheal tube repositioning TECHNIQUE: frontal view of the chest was obtained. COMPARISON: Chest radiograph dated 10/30/2024 at 12:15 AM FINDINGS: Endotracheal tube tip 6.2 cm above the bernardino. Nasogastric tube tip in body the stomach with proximal side-port near the level of the gastroesophageal junction. Right internal jugular central venous cat heter tip at the caudal superior vena cava. Mild elevation left hemidiaphragm. Airspace opacities, pulmonary, pleural effusion or pneumothorax. H eart size is normal. Cholecystectomy clips in right upper quadrant. Skin avery project over the rig ht and left abdomen. Partially visualized IVC filter in expected position with proximal tip projectin g to the right of the L2 vertebral body. IMPRESSION: 1. Endotracheal tube tip 6.2 cm above the bernardino. Consider advancement by 4 cm. 2. Nasogastric tube tip in the body the stomach would recommend advancement by 5 cm in order to place the proximal side-port below the level of the gastroesophageal junction. 3. Unchanged mild elevation of left hemidiaphragm. No other acute cardiopulmonary disease. Reviewed, dictated and finalized at location A. IMPRESSION: 1. Endotracheal tube tip 6.2 cm above the bernardino. Consider advancement by 4 cm. 2. Nasogastric tube tip in the body the stomach would recommend advancement by 5 cm in order to place the proximal side-port below the level of the gastroesop hageal junction. 3. Unchanged mild elevation of left hemidiaphragm. No other acute cardiopulmona ry disease.
--- NOTE | ~2024-10-24 | XR_ITS ---
XR abdomen gastric tube insert Ordering provider: Zhanna Loco History: . OG placement . Comparison: None. FINDINGS/impression: Nasogastric tube with the tip in the fundus of the stomach. Postoperative changes in the upper abdomen with contrast seen in the bowel loops and in the biliary t ree. IVC filter is also noted. Reviewed, dictated and finalized at location A.
--- NOTE | ~2024-10-24 | MR_ITS ---
EXAMINATION: MR MRCP wo/w con/w 3D wo ind DATE: 10/27/2024 13:14 INDICATION: Possible choledocholithiasis with biliary dilation. TECHNIQUE: Magnetic resonance imaging (MRI) of the abdomen was performed without and with 12 mL Multi jay intravenous contrast. Sequences included coronal T2-weighted SS-FSE, coronal T2-weighted FS SS- FSE, coronal T2-weighted FS FIESTA, axial T2-weighted FS FIESTA, axial T2-weighted FIESTA, sagittal T 2-weighted SS-FSE, axial T1-weighted dual-echo FSPGR, axial T2-weighted SS-FSE, axial T1-weighted LAV A, axial T2-weighted STIR FSE. Thick-slab T2-weighted FRFSE-XL images were obtained for magnetic reso nance cholangiopancreatography (MRCP). Rotating maximum intensity projection 3-D reconstructions of t he volumetric data were created by the technologist. Postcontrast sequences included a time course of axial T1-weighted LAVA. COMPARISON: CT dated 10/14/2024 FINDINGS: ABDOMEN MRI: Heart size is normal. No pericardial effusion. Very small bilateral posterior layering pleural effusi ons. There are several low signal intensity gallstones within the normal decompressed gallbladder. 7 mm T2 hyperintense hepatic cyst. The spleen, pancreas and bilateral adrenal glands are normal. Mild b ilateral hydronephrosis. There are a few subcentimeter T2 hyperintense nonenhancing left renal cyst. No bowel obstruction. Mild thoracic dextroscoliosis with moderate spondylosis. No pathologically enla rged abdominal or upper pelvic lymphadenopathy. Magnetic field artifact associated with an infrarenal IVC filter. Severe lumbar spondylosis with degenerative fibrofatty endplate changes. ABDOMEN MRCP: Mild intrahepatic biliary ductal dilation. The common bile duct is dilated to 1.4 cm and which tapers distally with no distal obstructing stones or masses. There are however several 2-3 mm low signal in tensity gallstones along the dependent aspect of the proximal common bile duct and the common hepatic duct. IMPRESSION: 1. Mild intra and extra hepatic biliary ductal dilation with both cholelithiasis and choledocholithia sis which does not appear currently obstructing. 2. Very small bilateral posterior layering pleural effusions. 3. Mild bilateral hydronephrosis. Reviewed, dictated and finalized at location A. IMPRESSION: 1. Mild intra and extra hepatic biliary ductal dilation with both cholelithiasi s and choledocholithiasis which does not appear currently obstructing. 2. Very small bilateral posterior layering pleural effusions. 3. Mild bilateral hydronephrosis.
--- NOTE | ~2024-10-24 | XR_ITS ---
XR abdomen gastric tube insert Ordering provider: Zhanna Loco MD History: . ng placement . Comparison: None. FINDINGS/impression: Nasogastric tube with the tip in the stomach. IVC filter is noted. Postoperative changes in the upper abdomen is also noted Reviewed, dictated and finalized at location A.
--- NOTE | 2024-10-24 17:42 | ED.GENADULT ---
HPI - General Adult General Chief complaint: Nausea/Vomiting/Diarrhea <Jed Mckeon MD - Last Filed: 10/25/24 19:00> Stated complaint: abd pain - vomiting <Jed Mckeon MD - Last Filed: 10/25/24 19:00> History of Present Illness HPI narrative: 64-year-old female with history of CVA, dementia, urinary tract infection and small-bowel obstructions present to the emergency department for evaluation for left-sided lower abdominal pain associated nausea and vomiting. Patient states that she has constant abdominal pain but that was worsened today. Patient states she did have some nausea and vomiting and states this is not frequent for her. <Jed Mckeon MD - Last Filed: 10/25/24 19:00> Related Data Home medications: Home Medications ?Medication ?Instructions ?Recorded ?Confirmed ?Last Taken ?Type hydroxyzine pamoate 25 mg capsule 25 mg PO BID 03/07/21 10/24/24 Unknown History mirtazapine 15 mg tablet 15 mg PO HS 03/07/21 10/24/24 Unknown History montelukast 10 mg tablet 10 mg PO DAILY 03/07/21 10/24/24 Unknown History simvastatin 20 mg tablet 20 mg PO HS 03/07/21 10/24/24 Unknown History sucralfate 1 gram tablet 1 g PO BID 03/07/21 10/24/24 Unknown History Lactobacillus acidophilus 1 cap PO DAILY 03/08/21 10/24/24 Unknown History (Acidophilus capsule) acetaminophen 500 mg capsule 1,000 mg PO Q6H PRN Pain 03/08/21 10/24/24 Unknown History ascorbate calcium (vitamin C) 500 500 mg PO BID 03/08/21 10/24/24 Unknown History mg tablet ergocalciferol (vitamin D2) 25,000 50,000 unit PO WEEKLY 03/08/21 10/24/24 Unknown History unit capsule multivitamin with minerals (Daily 1 tablet PO DAILY 03/08/21 10/24/24 Unknown History Multivitamin-Minerals tablet) potassium chloride 10 mEq 10 meq PO BID 09/16/24 10/24/24 Unknown History tablet,extended release ergocalciferol (vitamin D2) 50 mcg 100 mcg PO DAILY 09/27/24 10/24/24 Unknown History (2,000 unit) tablet bisacodyl 10 mg rectal suppository 10 mg RECTAL Q12H PRN constipation 10/24/24 10/24/24 Unknown History irbesartan 75 mg tablet 75 mg PO DAILY 10/24/24 10/24/24 Unknown History sodium phosphates 19 gram-7 118 ml RECTAL DAILY PRN 10/24/24 10/24/24 Unknown History gram/118 mL enema (Fleet Enema) constipation <Jed Mckeon MD - Last Filed: 10/25/24 19:00> Allergies/adverse reactions: Allergies Allergy/AdvReac Type Severity Reaction Status Date / Time lorazepam Allergy Unknown Verified 10/24/24 19:22 <Jed Mckoen MD - Last Filed: 10/25/24 19:00> Review of Systems Review of Systems: All systems reviewed & are unremarkable except as noted in HPI and below <Jed Mckeon MD - Last Filed: 10/25/24 19:00> [facility] Past Medical History Medical History: Medical History (Updated 10/25/24 @ 15:41 by Vee Chou APRN) Seizure as late effect of cerebrovascular accident (CVA) Presence of IVC filter Hypertension Neurogenic bladder Deep venous thrombosis Coronary artery disease Poorly documented and patient denies. Anxiety Chronic anemia Arthritis Gastroesophageal reflux disease Ulcerative colitis Hyperlipidemia Dementia Chronic indwelling White catheter <Jed Mckeon MD - Last Filed: 10/25/24 19:00> Surgical History Surgical History: Surgical History History of colon resection <Jed Mckeon MD - Last Filed: 10/25/24 19:00> Family History Family History: Family History Other Family history unknown <Jed Mckeon MD - Last Filed: 10/25/24 19:00> Social History Social History: Social History Social History: Surrogate decision maker: Amanda Parker, sibling. Code status: Full code. Smoking status: Unknown if ever smoked Alcohol intake: never Substance use: never Substance use type: does not use Do You Feel Safe in your Home?: Yes Lack of Transportation: No Lack of Food: Never True Current Housing: I Have Housing Concerned About Future Housing: No Difficulty Paying Gas/Electric Bills: No Difficulty Paying for Meds: No Currently Unemployed: No Education: Don't Know Difficulty w/ Childcare or Family Care: No Additional living arrangements comments: The patient is a resident at [facility]. Additional occupation/education comments: Disabled. Spiritual care concerns: No <Jed Mckeon MD - Last Filed: 10/25/24 19:00> Exam Narrative: APPEARANCE: Uncomfortable appearing HEAD: normocephalic, atraumatic. EYES: PERRLA/EOMI, conjunctivae clear. NOSE: Normal no drainage EARS:TMS clear with good light reflex. THROAT: Pharynx clear, no exudate. NECK: Supple. No adenopathy, no masses. RESPIRATORY: Airway patent, respirations nonlabored. Clear to auscultation bilaterally, no rales, rhonchi, wheezing. CARDIOVASCULAR: Regular rate and rhythm without murmurs rubs or gallops. ABDOMINAL: Soft, nontender, nondistended, normal bowel sounds MUSCULOSKELETAL: Moves all extremities. Strength/ROM intact, No edema, No calf tenderness. NEURO: Alert. Cranial nerves II through XII intact. SKIN: Warm, dry. Normal Color <Jed Mckeon MD - Last Filed: 10/25/24 19:00> Course Course Emergency Course: ZYCH 2102: Patient signed out pending CT imaging. 64-year-old debilitated half-way resident presenting for abdominal pain. Patient has a history of recurrent UTIs. White was switched out and urinalysis was sent off a new White. Urine with greater than 100 white blood cells, +3 esterase. Unclear of colonization versus urinary tract infection. We are awaiting culture results. Patient has history of pansensitive Pseudomonas in urine. CT abdomen pelvis showed thickened rectal wall with a perirectal fluid collection concerning for abscess. Norm contacted and will consult on the case. Patient does not have an elevated white blood cell count/ fevers. BP stable. She is not septic. She has been started on pip/tazo which will cover Gi infection and possible UTI. Admitted. <Juan Manuel Zamudio MD - Last Filed: 10/24/24 21:11> Vital Signs Vital signs: Vital Signs Temperature 97.6 F 10/24/24 17:32 Pulse Rate 106 H 10/24/24 17:32 Respiratory Rate 18 10/24/24 17:32 Blood Pressure 145/79 H 10/24/24 17:32 Pulse Oximetry 97 10/24/24 17:32 Temperature 97.4 F L 10/25/24 14:00 Pulse Rate 91 10/25/24 14:00 Respiratory Rate 20 10/25/24 14:00 Blood Pressure 122/59 L 10/25/24 14:00 Pulse Oximetry 96 10/25/24 14:00 Oxygen Delivery Room Air 10/25/24 08:00 <Jed Mckeon MD - Last Filed: 10/25/24 19:00> Vital Signs Temperature 97.6 F 10/24/24 17:32 Pulse Rate 106 H 10/24/24 17:32 Respiratory Rate 18 10/24/24 17:32 Blood Pressure 145/79 H 10/24/24 17:32 Pulse Oximetry 97 10/24/24 17:32 Temperature 97.4 F L 10/25/24 14:00 Pulse Rate 91 10/25/24 14:00 Respiratory Rate 20 10/25/24 14:00 Blood Pressure 122/59 L 10/25/24 14:00 Pulse Oximetry 96 10/25/24 14:00 Oxygen Delivery Room Air 10/25/24 08:00 <Juan Manuel Zamudio MD - Last Filed: 10/24/24 21:11> Medical Decision Making MDM Narrative Medical decision making narrative: 64-year-old female presents to the emergency department for evaluation abdominal pain with associated nausea and vomiting. <Jed Mckeon MD - Last Filed: 10/25/24 19:00> Vital Signs Vital Signs: Vital Signs Temperature 97.6 F 10/24/24 17:32 Pulse Rate 106 H 10/24/24 17:32 Respiratory Rate 18 10/24/24 17:32 Blood Pressure 145/79 H 10/24/24 17:32 Pulse Oximetry 97 10/24/24 17:32 Temperature 97.4 F L 10/25/24 14:00 Pulse Rate 91 10/25/24 14:00 Respiratory Rate 20 10/25/24 14:00 Blood Pressure 122/59 L 10/25/24 14:00 Pulse Oximetry 96 10/25/24 14:00 Oxygen Delivery Room Air 10/25/24 08:00 <Jed Mckeon MD - Last Filed: 10/25/24 19:00> Vital Signs Temperature 97.6 F 10/24/24 17:32 Pulse Rate 106 H 10/24/24 17:32 Respiratory Rate 18 10/24/24 17:32 Blood Pressure 145/79 H 10/24/24 17:32 Pulse Oximetry 97 10/24/24 17:32 Temperature 97.4 F L 10/25/24 14:00 Pulse Rate 91 10/25/24 14:00 Respiratory Rate 20 10/25/24 14:00 Blood Pressure 122/59 L 10/25/24 14:00 Pulse Oximetry 96 10/25/24 14:00 Oxygen Delivery Room Air 10/25/24 08:00 <Juan Manuel Zamudio MD - Last Filed: 10/24/24 21:11> Lab Data Result diagrams: 10/24/24 17:54 10/24/24 17:54 <Jed Mckeon MD - Last Filed: 10/25/24 19:00> Labs: Lab Results 10/24/24 10/24/24 Range/Units 17:54 19:18 WBC 7.3 (4.5-10.0) K/mm3 RBC 2.84 L (4.2-5.4) M/mm3 Hgb 8.5 L (12.0-15.0) g/dL Hct 27.1 L (37.0-47.0) % MCV 95.4 (80-100) fl MCH 29.9 (26-34) pg MCHC 31.4 L (32-36) g/dl RDW 14.9 H (11.5-14.5) % Plt Count 184 (150-375) k/mm3 MPV 9.2 (7.4-10.4) fl Immature Gran % (Auto) 0.6 H (0-0.5) % Neut % (Auto) 78.6 H (45.5-73.1) % Lymph % (Auto) 10.3 L (18.3-44.2) % [place] % (Auto) 9.5 H (2.6-8.5) % Eos % (Auto) 0.6 (0-4.4) % Baso % (Auto) 0.4 (0.2-1.2) % Lymph # (Auto) 0.75 L (0.9-3.2) K/mm3 [place] # (Auto) 0.7 H (0.1-0.6) K/mm3 Eos # (Auto) 0.0 (0-0.3) K/mm3 Baso # (Auto) 0.0 (0.0-0.1) K/mm3 Abs Immat Gran (auto) 0.04 H (0.00-0.031) K/mm3 Absolute Neuts (auto) 5.7 (1.3-6.7) K/mm3 Absolute Nucleated RBC 0.000 (0.0-0.012) K/mm3 Nucleated RBC % 0.0 (0.0-0.2) % Sodium 133 L (137-145) mmol/L Potassium 4.7 (3.4-5.0) mmol/L Chloride 101 (98-107) mmol/L Carbon Dioxide 24 (22-30) mmol/L Anion Gap 8 (4-12) mmol/L BUN 38 H (7-17) mg/dL Creatinine 0.97 (0.7-1.0) mg/dL Estim Creat Clear Calc 43 ml/min Estimated GFR 57 L (59 - ) Glucose 115 H (65-110) mg/dL Lactic Acid 0.6 L (0.7-2.0) mmol/L Calcium 8.8 (8.4-10.2) mg/dL Total Bilirubin 0.3 (0.2-1.3) mg/dL AST 30 (14-36) U/L ALT 16 (6-35) U/L Alkaline Phosphatase 154 H (38-126) U/L Total Protein 6.0 L (6.3-8.2) g/dL Albumin 3.5 (3.5-5.1) g/dL Lipase 271 (23-300) U/L Urine Color Yellow (Yellow) Urine Appearance Turbid H (Clear) Urine pH 8.0 (5.0-9.0) Ur Specific [place] 1.015 (1.001-1.035) Urine Protein 2+ H (Negative) mg/dL Urine Glucose (UA) Negative (Negative) mg/dL Urine Ketones Negative (Negative) mg/dL Ur Blood (Man) 2+ H (Negative) Urine Nitrate Negative (Negative) Urine Bilirubin Negative (Negative) Urine Urobilinogen 0.2 (<2.0) mg/dL Add Ur Microanalysis Reviewed Leukocyte Esterase Rfl 3+ H (Negative) CURLY/UL Urine RBC 21-50 H (0-2) /hpf Urine WBC >100 H (0-3) /hpf Ur Squamous Epith Cells None seen (Few) /hpf Urine Bacteria 4+ H /hpf <Jed Mckeon MD - Last Filed: 10/25/24 19:00> Lab Results 10/24/24 10/24/24 Range/Units 17:54 19:18 WBC 7.3 (4.5-10.0) K/mm3 RBC 2.84 L (4.2-5.4) M/mm3 Hgb 8.5 L (12.0-15.0) g/dL Hct 27.1 L (37.0-47.0) % MCV 95.4 (80-100) fl MCH 29.9 (26-34) pg MCHC 31.4 L (32-36) g/dl RDW 14.9 H (11.5-14.5) % Plt Count 184 (150-375) k/mm3 MPV 9.2 (7.4-10.4) fl Immature Gran % (Auto) 0.6 H (0-0.5) % Neut % (Auto) 78.6 H (45.5-73.1) % Lymph % (Auto) 10.3 L (18.3-44.2) % [place] % (Auto) 9.5 H (2.6-8.5) % Eos % (Auto) 0.6 (0-4.4) % Baso % (Auto) 0.4 (0.2-1.2) % Lymph # (Auto) 0.75 L (0.9-3.2) K/mm3 [place] # (Auto) 0.7 H (0.1-0.6) K/mm3 Eos # (Auto) 0.0 (0-0.3) K/mm3 Baso # (Auto) 0.0 (0.0-0.1) K/mm3 Abs Immat Gran (auto) 0.04 H (0.00-0.031) K/mm3 Absolute Neuts (auto) 5.7 (1.3-6.7) K/mm3 Absolute Nucleated RBC 0.000 (0.0-0.012) K/mm3 Nucleated RBC % 0.0 (0.0-0.2) % Sodium 133 L (137-145) mmol/L Potassium 4.7 (3.4-5.0) mmol/L Chloride 101 (98-107) mmol/L Carbon Dioxide 24 (22-30) mmol/L Anion Gap 8 (4-12) mmol/L BUN 38 H (7-17) mg/dL Creatinine 0.97 (0.7-1.0) mg/dL Estim Creat Clear Calc 43 ml/min Estimated GFR 57 L (59 - ) Glucose 115 H (65-110) mg/dL Lactic Acid 0.6 L (0.7-2.0) mmol/L Calcium 8.8 (8.4-10.2) mg/dL Total Bilirubin 0.3 (0.2-1.3) mg/dL AST 30 (14-36) U/L ALT 16 (6-35) U/L Alkaline Phosphatase 154 H (38-126) U/L Total Protein 6.0 L (6.3-8.2) g/dL Albumin 3.5 (3.5-5.1) g/dL Lipase 271 (23-300) U/L Urine Color Yellow (Yellow) Urine Appearance Turbid H (Clear) Urine pH 8.0 (5.0-9.0) Ur Specific [place] 1.015 (1.001-1.035) Urine Protein 2+ H (Negative) mg/dL Urine Glucose (UA) Negative (Negative) mg/dL Urine Ketones Negative (Negative) mg/dL Ur Blood (Man) 2+ H (Negative) Urine Nitrate Negative (Negative) Urine Bilirubin Negative (Negative) Urine Urobilinogen 0.2 (<2.0) mg/dL Add Ur Microanalysis Reviewed Leukocyte Esterase Rfl 3+ H (Negative) CURLY/UL Urine RBC 21-50 H (0-2) /hpf Urine WBC >100 H (0-3) /hpf Ur Squamous Epith Cells None seen (Few) /hpf Urine Bacteria 4+ H /hpf <Juan Manuel Zamudio MD - Last Filed: 10/24/24 21:11> Discharge Plan Discharge Clinical Impression: Perirectal abscess, Acute UTI, Acute proctitis <Jed Mckeon MD - Last Filed: 10/25/24 19:00> Patient Disposition: Still a Patient <Jed Mckeon MD - Last Filed: 10/25/24 19:00> Condition: Stable <Jed Mckeon MD - Last Filed: 10/25/24 19:00>
[2024-10-24 18:01] LABS: Basophils Percent Auto 0.4 % (0.2-1.2); Eosinophils Percent Auto 0.6 % (0-4.4); Hematocrit 27.1 % (37.0-47.0); Hemoglobin 8.5 g/dL (12.0-15.0); Immature Granulocyte Absolute 0.04 K/mm3 (0.00-0.031); Immature Granulocyte Percent A 0.6 % (0-0.5); Lymphocytes Absolute Auto 0.75 K/mm3 (0.9-3.2); Lymphocytes Percent Auto 10.3 % (18.3-44.2); Mean Corpuscular HGB Conc 31.4 g/dl (32-36); Mean Corpuscular Hemoglobin 29.9 pg (26-34); Mean Corpuscular Volume 95.4 fl (80-100); Mean Platelet Volume 9.2 fl (7.4-10.4); Monocytes Absolute Auto 0.7 K/mm3 (0.1-0.6); Monocytes Percent Auto 9.5 % (2.6-8.5); Neutrophils Absolute Auto 5.7 K/mm3 (1.3-6.7); Neutrophils Percent Auto 78.6 % (45.5-73.1); Platelet Count Result 184 k/mm3 (150-375); Red Blood Count 2.84 M/mm3 (4.2-5.4); Red Cell Distribution Width 14.9 % (11.5-14.5); White Blood Count 7.3 K/mm3 (4.5-10.0)
--- OUTSIDE RECORDS SUMMARY | 2024-10-24 18:07 | XMS_ITS | Referral Summary ---
Author Organization [facility] Address [address] [place] [address] Care Team Providers Care Automotive Diagnostic Technician Name Role Phone Anish Goldstein MD Primary [...] Not on file Insurance MEDICARE IDPA MEDICARE [facility] Care Teams Automotive Diagnostic Technician Relationship Specialty Start Date End Date Anish Goldstein MD PCP - General Emergency Medicine 06/17/19
--- OUTSIDE RECORDS SUMMARY | 2024-10-24 18:07 | XMS_ITS | Data Portability ---
Author Organization [facility] Address [address] [place] [address] Assessment No assessment recorded. Plan of Treatment Reminders Order Date Submit Date Provider Last Modified By Organization Details Last Modified Time Details Appointments None recorded . Lab culture, urine 2017 018 ENRRIQUE JENISE, [facility] elliejo annAppstarter [address], [address], [place], [address], 8 10:02:00 CMP, serum or plasma 2017 018 ENRRIQUE JENISE, [address] [place] [address], [address], [place], [address], 8 10:21:16 CBC w/ auto diff 2017 018 ENRRIQUE JENISE, [address] [place], [place] [address] [address], [address], [place], [address], 8 10:21:15 TSH + free T4, serum 2017 018 ENRRIQUE JENISE, [address] [place] [address], [address], [place], [address], 8 10:21:14 vitamin B12 + folate, serum or blood 2017 018 ENRRIQUE JENISE, [address] [place], [place] [address] [address], [address], [place], [address], 8 10:21:11 Referral long term facility referral 2018 [facility], [address] [place], [address], 9 17:19:23 Procedures None recorded . Surgeries None recorded . Imaging CT, abdomen, w/wo contrast - Loss of appetite , worse over the last 6 months 2017 018 [facility] ([facility]), [address], [place], [address], 8 12:55:03 XR, knee, 4 or more view 2016 017 ENRRIQUE Not available 7 11:49:55 Medication Orders mirtazap ine 15 mg tablet [address] [facility], [address] [place], [address], 9 17:18:48 sertrali ne 50 mg tablet [address] [facility], [address] [place], [address], 9 17:17:59 topirama te 25 mg tablet [address] [facility], [address] [place], [address], 8 10:01:54 omeprazo le 20 mg capsule, delayed release [address] [facility], [address] [place], [address], 8 10:02:36 docusate sodium 100 mg capsule [address] [facility], [address] [place], [address], 8 10:03:16 docusate sodium 100 mg capsule 2017 018 [facility], [address] [place], [address], 8 10:21:22 Linzess 145 mcg capsule 2017 018 [facility], [address] [place] [address], [address], 8 10:21:22 ergocalc iferol (vitamin D2) 1,250 mcg (50,000 unit) capsule 2017 018 [facility], [address] [place] [address], [address], 8 10:30:19 topirama te 25 mg tablet 2016 017 [facility], [address] [place] [address], [address], 7 10:29:20 naproxen 500 mg tablet 2016 017 [facility], [address] [place] [address], [address], 9 16:37:32 amitript yline 10 mg tablet 2016 017 [facility], [address] [place] [address], [address], 9 16:39:32 omeprazo le 20 mg capsule, delayed release 2016 017 [facility], [address] [place] [address], [address], 7 10:26:06 ibuprofe n 800 mg tablet 2016 017 [facility], [address] [place] [address], [address], 9 16:38:38 monteluk ast 10 mg tablet 2016 017 [facility], [address] [place] [address], [address], 7 14:35:51 losartan 25 mg tablet 2016 017 [facility], [address] [place] [address], [address], 7 14:35:54 prometha zine-DM 6.25 mg-15 mg/5 mL oral syrup 2016 017 [place] [address], [address] [place] [address], [address], 7 10:02:43 ranitidi ne 150 mg tablet 2016 017 [place] [address], [address] [place] [address], [address], 9 16:36:18 azithrom ycin 250 mg tablet 2016 017 [place] [address], [address] [place] [address], [address], 7 10:01:35 docusate sodium 100 mg capsule 2016 017 [facility], [address] [place] [address], [address], 7 14:35:59 ferrous sulfate 325 mg (65 mg iron) tablet 2016 017 [place] [address], [address] [place] [address], [address], 7 14:35:52 ergocalc iferol (vitamin D2) 1,250 mcg (50,000 unit) capsule [address] [facility], [address] [facility], [place], [address], 7 14:35:53 Patient TargetsNo targets recorded. Patient Instructions Encounter Date Encounter Id Patient Instructions Last Modified By Organization Details Last Modified Time 07/30/2017 [id number] unable to give u s a urine specimen ...gave her a cup , she will bring us a specimen... jose rafael Not available 07/30/2017 12:58:26 11/13/2018 [id number] let's try to get her back on some meds , can she see [facility]? try to make an appointment jose rafael Not available 11/14/2018 18:00:02 Reason for Referral [facility] Ref erral for Depressive disorder depression , unable to care for self Referring Physician: Darren Solomon, Family Medicine, Encounter Date: 11/13/2018 Results Created Date Observation Date Name Description Value Unit Range Abnormal Flag Note LastModifiedBy Organization Detail LastModifiedTime 03/05/20 17 03/05/2017 XR, knee, 4 or more view No observ ation record ed. [email or web address] [facility] ([facility]) [address] [place], [address], 03/18/2017 17:39:20 Result Notes None recorded. Problems Name Problem SNOMED Code Status Onset Date Resolution Date Notes Provider Name and Address Organization Details Recorded Time Dysuria 81153379 Active 2017 Darren Solomon PA-C Attn: Vance andrade,[address] [facility], [place], [address], [place] [facility] 8 10:01:10 Constipation 95212207 Active 2017 Darren Solomon PA-C Attn: Vance andrade,[address] [facility], [place], [address], [place] [facility] 8 10:02:43 Loss of appetite 76459266 Active 2017 Darren Solomon PA-C Attn: Vance andrade,[address] [facility], [place], [address], [place] [facility] 8 10:05:35 Hypertensive disorder 61247026 Active Darren Solomon PA-C Attn: Accountchris g,[address] [facility], [place], [address], [place] [facility] 6 11:31:33 Gastroesophage al reflux disease 827392994 Active Darren Solomon PA-C Attn: Accountchris g,[address] [facility], [place], [address], [place] [facility] 6 11:31:33 Headache 94157259 Active Darren Solomon PA-C Attn: Accountchris g,[address] [facility], [place], [address], [place] [facility] 6 11:17:33 Anxiety 23502462 Active Darren Solomon PA-C Attn: Accountchris andrade,[address] [facility], [place], [address], [place] [facility] 6 11:31:33 Depressive disorder 00853864 Active 2018 Darren Solomon PA-C Attn: Vance andrade,[address] [facility], [place], [address], [place] [facility] 9 17:11:41 Sinusitis 52191216 Active Darren Solomon PA-C Attn: Accountchris g,[address] [facility], [place], [address], [place] [facility] 5 10:35:44 Serous otitis media 14972019 Active Darren Solomon PA-C Attn: Accountin g,[address] [facility], [place], [address], [place] [facility] 5 11:09:34 Allergic rhinitis 09375804 Active Darren Solomon PA-C Attn: Accountin g,[address] [facility], [place], [address], [place] [facility] 6 11:31:33 Hyperlipidemia 62538816 Active Darren Solomon PA-C Attn: Accountin g,[address] [facility], [place], [address], [place] [facility] 6 11:31:33 Acute pharyngitis 992793252 Active Darren Solomon PA-C Attn: Accountin g,[address] [facility], [place], [address], [place] [facility] 5 11:09:34 Acute sinusitis 72107476 Active Darren Solomon PA-C Attn: Accountin g,[address] [facility], [place], [address], [place] [facility] 5 11:09:34 Low back pain 819200593 Active Darren Solomon PA-C Attn: Accountin g,[address] [facility], [place], [address], [place] [facility] 6 11:31:33 Acute otitis media 3977088 Active Darren Solomon PA-C Attn: Accountin g,[address] [facility], [place], [address], [place] [facility] 6 11:17:33 Insomnia 869174935 Active Darren Solomon PA-C Attn: Accountin g,[address] [facility], [place], [address], [place] [facility] 6 11:17:33 Administration of influenza vaccine Active 2015 Darren Solomon PA-C Attn: Accountin g,[address] [facility], [place], [address], [place] [facility] 6 15:03:30 Vitamin D deficiency 57672265 Active 2015 Darren Solomon PA-C Attn: Accountin g,[address] [facility], [place], [address], [place] [facility] 6 15:07:08 Epigastric pain 27988800 Active 2016 Darren Solomon PA-C Attn: Accountin g,[address], [place], [address], [place] [facility] 7 13:42:12 Anemia 941722887 Active 2016 Darren Solomon PA-C Attn: Vance andrade,[address], [place], [address], [facility] - [facility] 7 10:19:43 Pain in left knee Active 2016 Darren Solomon PA-C Attn: Vance g,[address], [place], [address], [place] [facility] 7 14:37:36 Problem Notes None recorded. Procedures Surgical History Date Name Laterality Status Provider Name and Address Organization Details Recorded Time 06/16/2015 repair of colon completed Manjula Briseno [place] [facility] 11/13/2018 16:40:31 Imaging Results Imaging Date Name Status LastModified by Organiz ation Details LastModified Time 03/05/2017 XR, knee, 4 or more view completed [email or web address] [facility] ([facility]) [address] [place], [address], 03/18/2017 17:39:20 Procedure Notes None recorded. Medical [...] Updated DateTime 8 175.26 cm 18 kg/m2 75787.8 7 g 92 % 92 % 109 /min 98.4 [degF] 108 mm[Hg] 70 mm[Hg] Teresa Valdivia MA [place] - [facility] 8 09:41:55 Date Recorded Body weight Oxygen saturation Oxygen saturation in Arterial blood by Pulse oximetry Heart rate Body temperature Systolic blood pressure Diastolic blood pressure Provider Name and Address Organization Details Last Updated DateTime 9 93114.8 1 g 97 % 97 % 86 [...] Updated DateTime 7 175.26 cm 19.5 kg/m2 74879.1 9 g 99 % 99 % 80 /min 99.5 [degF] 130 mm[Hg] 78 mm[Hg] Teresa Valdivia MA [facility] 7 14:06:54 Date Recorded Body height Body mass index (BMI) Body weight Oxygen saturation Oxygen saturation in Arterial blood by Pulse oximetry Heart rate Body temperature Systolic blood pressure Diastolic blood pressure Provider Name and Address Organization Details Last Updated DateTime 7 175.26 cm 19 kg/m2 93824.4 2 g 97 % 97 % 92 /min 98.4 [degF] 126 mm[Hg] 74 mm[Hg] Teresa Valdivia MA [facility] 7 10:00:54 Social History Question Answer Notes LastModified by Organizat ion Details LastModified Time Tobacco Smoking Status Never Smoker Not Available [employer] 04/18/2020 03:43:24 Do You Have An Advance Directive? No [id number] Information not available 04/18/2020 What Is Your Level Of Alcohol Consumption? None [id number] Information not available 04/18/2020 What Is Your Level Of Caffeine Consumption? Heavy [id number] Information not available 04/18/2020 What Type Of Diet Are You Following? REGULAR [id number] Information not available 04/18/2020 Are There Any Guns Present In Your Home? No [id number] Information not available 04/18/2020 Hard Of Hearing Or Deaf In One Or Both Ears? No Information not available 09/21/2014 Legally Blind In One Or Both Eyes? No Information not available 09/21/2014 What Was The Date Of Your Most Recent Tobacco Screening? 11/13/2018 [id number] Information not available 04/18/2020 Performs Monthly Self-breast Exam? Yes Information not available 09/21/2014 Seat Belts Used Routinely Yes Information not available 09/21/2014 Smoke Alarm In Home Yes Information not available 09/21/2014 How Much Tobacco Do You Smoke? No [id number] Information not available 04/18/2020 Do You Use Sunscreen Routinely? No [id number] Information not available 04/18/2020 Sex: Unknown Functional Status Question Answer Note LastModified by Organization D etails LastModified Time What is your exercise level? None [id number] Information not available 04/18/2020 Mental Status None [...] N Blood Diseases N Hyperthyroidism N Blood Transfusion N MRSA N Blood disorders N Emphysema N Blood Clots N COPD N Depression Y Pneumonia N Premature N Peripheral Arterial Disease [...] Sclerosis N Colon Polyps N Heart Attack (CT) N Diabetes N Cardiomyopathy N Blood Transfusions [...] LNP-S, PF, 30 mcg/0.3 mL dose completed [facility], [place] - [facility] 12/13/2020 15:31:14 COVID-19, mRNA, LNP-S, PF, 30 mcg/0.3 mL dose 1 completed [facility] [place] - [facility] 12/13/2020 15:31:32 Influenza, split virus, quadrivalent, preservative 6 completed Not Available [facility] 07/03/2019 02:48:30 Influenza, split virus, quadrivalent, preservative 7 completed Not Available [facility] 07/03/2019 02:33:59 Influenza, split virus, quadrivalent, preservative 5 completed Not Available [facility] 07/03/2019 02:43:44 Past Encounters Encounter ID Performer Location Encounter Start Date Encounter Closed Date Diagnosis/Indication Diagnosis SNOMED-CT Code Diagnosis ICD10 Code Diagnosis Note [id number] LAURA Callahan (Adult Med) [address] [place] [id number] 05/05/2014 11:33:37 05/05/2014 12:28:55 Hypertensive disorder 33060100 Gastroesop hageal reflux disease 385531580 Headache 04518229 Anxiety 57476505 [id number] [facility]URA Callahan (Adult Med) [address] [place] [id number] 09/21/2014 09:48:35 09/21/2014 11:14:58 Headache 34929284 Sinusitis 27234926 Serous otitis media 58447429 Hypertensive disorder 79407921 Gastroesop hageal reflux disease 279672887 Anxiety 34942795 [id number] LA[facility] Callahan (Adult Med) [address] [place] [id number] 01/18/2015 09:58:06 01/18/2015 14:11:30 Sinusitis 77884414 Serous otitis media 75175704 Headache 60205177 Hypertensive disorder 09842684 Gastroesop hageal reflux disease 087233123 Anxiety 86434607 Allergic rhinitis 30479025 [id number] LAURA Callahan (Adult Med) [address] [place] [id number] 03/16/2015 10:40:07 03/17/2015 16:24:53 Active or passive immunization 678235521 Z23 Hyperlipidemia 98825823 E78.5 [id number] LAURA Callahan (Adult Med) [address] [place] [id number] 05/16/2015 10:33:10 05/16/2015 11:08:50 Acute pharyngitis 363273127 J02.9 Acute sinusitis 53257657 J01.90 Allergic rhinitis 393030 04 J30.9 Anxiety 32446243 F41.9 Gastroesop hageal reflux disease 604580370 K21.9 Headache 53771082 R51 Hyperlipidemia 59896174 E78.5 Hypertensive disorder 38 832906 I10 Serous otitis media 8032 7007 H65.03 [id number] LAURA Callahan (Adult Med) [address] [place] [id number] 07/18/2015 10:22:30 07/18/2015 17:31:35 Anxiety 85794466 F41.9 Gastroesop hageal reflux disease 298651310 K21.9 Headache 96416813 R51 Hyperlipidemia 77490839 E78.5 Hypertensive disorder 38 682647 I10 Low back pain 535989957 M54.5 [id number] LAURA Callahan (Adult Med) [address] [place] [id number] 10/16/2015 10:08:06 10/16/2015 11:31:31 Acute otitis media 2655857 H66.92 Allergic rhinitis 578947 04 J30.9 Anxiety 67086288 F41.9 Gastroesop hageal reflux disease 620592515 K21.9 Hyperlipidemia 55096413 E78.5 Hypertensive disorder 38 255701 I10 Low back pain 140937275 M54.5 [id number] MD Lorrie Contreras (Adult Med) [address] [place] [id number] 12/28/2015 10:58:36 12/28/2015 11:18:58 Acute otitis media 6544685 H66.92 Headache 87837547 R51 Insomnia 761792734 G47.0 0 [id number] MD Lorrie Contreras (Adult Med) [address] [place] [id number] 04/04/2016 14:32:04 04/04/2016 15:17:27 Administration of influenza vaccine 06705586 Z23 Low back pain 777312950 M54.5 Headache 74512154 R51 Vitamin D deficiency 347 66456 E55.9 [id number] MD Lorrie Contreras (Adult Med) [address] [place] [id number] 07/08/2016 11:49:09 07/08/2016 13:48:47 Vitamin D deficiency 34753891 E55.9 Insomnia 698010855 G47.0 0 Gastroesop hageal reflux disease 648488916 K21.9 Low back pain 453856689 M54.5 Hypertensive disorder 38 246086 I10 Anxiety 98293536 F41.9 Hyperlipidemia 74474163 E78.5 Allergic rhinitis 605889 04 J30.9 Epigastric pain 90973204 R10.13 [id number] MD Lorrie Contreras (Adult Med) [address] [place] [id number] 09/03/2016 10:12:48 09/03/2016 10:31:29 Hyperlipidemia 85496033 E78.5 Hypertensive disorder 38 231503 I10 Acute otitis media 71332 03 H66.92 [id number] LAURA Callahan (Adult Med) [address] [place] [id number] 12/02/2016 09:45:17 12/03/2016 11:38:54 Anemia 827736665 D64.9 Vitamin D deficiency 347 11198 E55.9 Insomnia 865987753 G47.0 0 Gastroesop hageal reflux disease 549325585 K21.9 Low back pain 516626857 M54.5 Hypertensive disorder 38 686524 I10 Anxiety 83533829 F41.9 Hyperlipidemia 71368753 E78.5 Allergic rhinitis 368928 04 J30.9 [id number] MD Lorrie Contreras (Adult Med) [address] [place] [id number] 02/27/2017 13:40:19 02/27/2017 14:44:54 Acute pharyngitis 436109669 J02.9 Anemia 492158393 D64.9 Vitamin D deficiency 347 41657 E55.9 Allergic rhinitis 081534 04 J30.9 Acute sinusitis 54954302 J01.90 Hyperlipidemia 65888861 E78.5 Hypertensive disorder 38 349634 I10 Gastroesop hageal reflux disease 312307515 K21.9 Pain in left knee 834589 0877 28331 M25.562 fell 2 months ago [id number] [facility] [address] [place] [id number] 03/03/2017 13:40:35 03/03/2017 18:05:57 Administration of influenza vaccine 31991210 Z23 [id number] MD Lorrie Contreras (Adult Med) [address] [place] [id number] 04/29/2017 09:51:05 04/29/2017 10:37:01 Gastroesophageal reflux disease 627332690 K21.9 Pain in left knee 729458 4453 04114 M25.562 fell 2 months ago Hyperlipidemia 04943701 E78.5 Allergic rhinitis 824200 04 J30.9 Insomnia 696111496 G47.0 0 Headache 20602041 R51 [id number] Davida Mayorga MD [facility] (Adult Med) [address] [place] [id number] 07/30/2017 09:28:34 07/30/2017 10:50:02 Headache 02967492 R51 Epigastric pain 99176759 R10.13 Gastroesop hageal reflux disease 175334804 K21.9 Dysuria 51563809 R30.0 Anemia 259447078 D64.9 Constipation 46284817 K5 9.00 Loss of appetite 6518880 6 R63.0 Vitamin D deficiency 347 81912 E55.9 [id number] [facility] [address] [place] [id number] 11/13/2018 15:29:56 11/16/2018 09:20:27 Depressive disorder 47108453 F33.8 Vitamin D deficiency 347 79866 E55.9 Insomnia 501521074 G47.0 0 Gastroesop hageal reflux disease 336556949 K21.9 Low back pain 007394208 M54.5 Hyperlipidemia 01942412 E78.5 Health Concerns Section Related Observation LastModified by Organization Detai ls LastModified Time None Recorded Concern Status LastModified by Organization Details LastModified Time None Recorded Advance Directives Directive N: Payers Encounter Date Sequence Insurance Name Policy Number Policy Bird Covered Member ID Bird Member ID Guarantor Name 02/27/2017 1 [place] Patsy A Gross [id number] Patsy Gross 02/27/2017 1 [place] OR [place]IC[place] REPLACEMENT PRIMARY) Patsy Gross [id number] Patsy Gross 03/03/2017 1 [place] P[place]y A Gross [id number] Patsy Gross 03/03/2017 1 [place]PLACEMENT [place]) Patsy Gross [id number] Patsy Gross 04/29/2017 1 [place] P[place]y A Gross [id number] Patsy Gross 04/29/2017 1 [place] REPLACEMENT PR[place]) Patsy Gross [id number] Patsy Gross 07/30/2017 1 [place] Patsy A Gross [id number] Patsy Gross 07/30/2017 1 [place]IC[place] REPLACEMENT PRIMARY) Patsy Gross [id number] Patsy Gross 11/13/2018 1 [place] Patsy A Gross [id number] Patsy Gross 11/13/2018 1 [place] OR [place]IC[place] REPLACEMENT [place]) Patsy Gross [id number] Patsy Gross Notes Date Note Type Note Provider Name and Address Organization Details Recorded Time 02/27/2017 text/html sore throat 1 week Darren Solomon PA-C Attn: Accounting,[address] [facility], [place], [address], [place] [facility] 02/27/2017 16:51:59 04/29/2017 text/html she saw ortho fo r her left knee fracture .... no brace yet , Darren Solomon PA-C Attn: Accounting,[address] [place], [address], [place] [facility] 04/29/2017 14:26:48 07/30/2017 text/html not eating, mood y , naylor when I pee... Darren Solomon PA-C Attn: Accounting,[address] [place], [address], [facility] 07/30/2017 12:59:05 11/13/2018 text/html she has not seen Dr. Buenrostro in a long time , no longer taking her meds , is cranky , up all night , agitated , uncooperative ... Darren Solomon PA-C Attn: Accounting,[address] [place], [address], [facility] 11/14/2018 18:00:12 OBGyn Episode No OBEpisode recorded.
--- OUTSIDE RECORDS SUMMARY | 2024-10-24 18:07 | XMS_ITS | Clinical Summary ---
Author Organization [facility] Address [address] [place] [address] Care Team Providers Care Residential Building Inspector Name Role Phone Darren Solomon Primary Care Provider + Source Comments [facility],non-owned Affiliates and Associated Physician Practices is amultiple site organization consisting of ambulatory clinics and hospital sitesin [place], [place], [place] and [place]. This disclosure is being madepursuant to the Care Everywhere program and may not contain all information available regarding this patient. Last updated 18.[facility] Allergies No known active allergies Medications * [...] on file Legal Sex Female 6:13 AM MARKETING ASSISTANT Gender Identity Not on file Sexual Orientation Not on file Last Filed Vital Signs Vital Sign Reading Time Taken Comments Blood Pressure 123/50 04/20/2018 12:50 PM MARKETING ASSISTANT Pulse 86 04/20/2018 12:50 PM MARKETING ASSISTANT Temperature 36.4 C (97.5 F) 04/20/2018 12:50 PM MARKETING ASSISTANT Respiratory Rate 18 04/20/2018 12:50 PM MARKETING ASSISTANT Oxygen Saturation 100% 04/20/2018 12:50 PM MARKETING ASSISTANT Inhaled Oxygen Concentration - - Weight 45.4 [...] 11:36 PM 03/05/2018 1:07 AM Care Teams Residential Building Inspector Relationship Specialty Start Date End Date Darren Solomon PA [address] [place] [address] PCP - General Physician Auto Wrecker 03/02/18
--- OUTSIDE RECORDS SUMMARY | 2024-10-24 18:08 | XMS_ITS | Clinical Summary ---
Author Organization [facility] Address [address] [place] [address] Care Team Providers Care [employer] Professional Name Role Phone Anish Goldstein MD Primary [...] PICC central line placement 03/13/2018 Overview (07/19/2019): [facility] Abdominal pain, generalized 03/04/2018 [...] Not on file Insurance MEDICARE [place] MEDICARE [facility] Address: [address] [address] [facility] Care Teams K [employer] Professional Relationship Specialty Start Date End Date Anish Goldstein MD PCP - General Emergency Medicine 06/17/19
--- OUTSIDE RECORDS SUMMARY | 2024-10-24 18:08 | XMS_ITS | CONTINUITY OF CARE DOCUMENT ---
Author Name angel ortiz Address Unknown Organization [facility] Address [address] [place] [address] Phone [phone] Care Team Providers Care Steam Generating Powerplant Mechanic Name Role Phone Dale ANN, Janie Unavailable Janie Hunter MD Unavailable INSURANCE PROVIDERS Payer name Policy type / Coverage type [place] red green party ID [employer]ILY [employer] Medicaid 1 [id number] [place] MED[place] Medicare [id number]
[2024-10-24 18:13] LABS: Alanine Aminotransferase 16 U/L (6-35); Albumin Level 3.5 g/dL (3.5-5.1); Alkaline Phosphatase 154 U/L (38-126); Anion Gap 8 mmol/L (4-12); Aspartate Amino Transferase 30 U/L (14-36); Bilirubin,Total 0.3 mg/dL (0.2-1.3); Blood Urea Nitrogen 38 mg/dL (7-17); Calcium 8.8 mg/dL (8.4-10.2); Carbon Dioxide 24 mmol/L (22-30); Chloride 101 mmol/L (98-107); Estimated CRCL calculation 43 ml/min; Estimated Glomerular Filt Rate 57; Glucose 115 mg/dL (65-110); Lactic Acid Reflex 0.6 mmol/L (0.7-2.0); Lipase 271 U/L (23-300); Potassium 4.7 mmol/L (3.4-5.0); Sodium 133 mmol/L (137-145)
[2024-10-24] MEDS: ONDANSETRON INJ 4 MG/2 ML VIAL IV PUSH (19:18)
[2024-10-24] MEDS: LACTATED RINGERS 1,000 ML 999 ML IV CONT (19:19)
--- NOTE | 2024-10-24 19:32 | PC.NURSE ---
Report received from AMARJIT Ambriz. Assumed care of patient at this time.
[2024-10-24 19:57] LABS: Add Urine Microscopic? YES; Appearance Urine Turbid (Clear); Bacteria Urine 4+ /hpf; Bilirubin Urine Negative (Negative); Blood Urine 2+ (Negative); Color Urine Yellow (Yellow); Glucose Urine UA Negative (Negative); Ketones Urine Negative (Negative); Leukocyte Esterase Ur 3+ LEU/UL (Negative); Need Manual Microscopic Reviewed; Nitrate Urine Negative (Negative); Protein Urine 2+ mg/dL (Negative); RBC Urine 21-50 /hpf (0-2); Specific Grav Ur 1.015 (1.001-1.035); Squamous Epithelial Cell Urine None Seen /hpf (Few); Urobilinogen Urine 0.2 mg/dL (<2.0); WBC Urine >100 /hpf (0-3)
[2024-10-24] MEDS: PIPERACILLN/TAZ 3.375GM/NS50ML 3.375 GM/50 ML BAG IVPB (20:37)
--- NOTE | 2024-10-24 21:03 | PM.IMHP ---
H&P: HPI History of Present Illness Date/Time: 10/24/24 21:03 Chief Complaint: Abdominal pain PMFSH Past Medical History Medical History (Updated 10/04/24 @ 11:59 by Anil To MD) Seizure as late effect of cerebrovascular accident (CVA) Presence of IVC filter Hypertension Neurogenic bladder Deep venous thrombosis Coronary artery disease Poorly documented and patient denies. Anxiety Chronic anemia Arthritis Gastroesophageal reflux disease Ulcerative colitis Hyperlipidemia Dementia Chronic indwelling White catheter Surgical History Surgical History History of colon resection Family History Family History Other Family history unknown Social History Social History Social History: Surrogate decision maker: Amanda Parker, sibling. Code status: Full code. Smoking status: Unknown if ever smoked Alcohol intake: never Substance use: never Do You Feel Safe in your Home?: Yes Lack of Transportation: No Lack of Food: Never True Current Housing: I Have Housing Concerned About Future Housing: No Difficulty Paying Gas/Electric Bills: No Difficulty Paying for Meds: No Currently Unemployed: No Education: High School Diploma/GED Difficulty w/ Childcare or Family Care: No Additional living arrangements comments: The patient is a resident at [facility]. Additional occupation/education comments: Disabled. Spiritual care concerns: No Meds Home Medications and Allergies Home Medications ?Medication ?Instructions ?Recorded ?Confirmed ?Type hydroxyzine pamoate 25 mg capsule 25 mg PO BID 03/07/21 09/27/24 History mirtazapine 15 mg tablet 15 mg PO HS 03/07/21 09/27/24 History montelukast 10 mg tablet 10 mg PO DAILY 03/07/21 09/27/24 History pantoprazole 40 mg tablet,delayed 40 mg PO DAILY 03/07/21 09/27/24 History release simvastatin 20 mg tablet 20 mg PO HS 03/07/21 09/27/24 History sucralfate 1 gram tablet 1 g PO BID 03/07/21 09/27/24 History Lactobacillus acidophilus 1 cap PO DAILY 03/08/21 09/27/24 History (Acidophilus capsule) acetaminophen 500 mg capsule 1,000 mg PO Q6H PRN Pain 03/08/21 09/27/24 History ascorbate calcium (vitamin C) 500 500 mg PO BID 03/08/21 09/27/24 History mg tablet ergocalciferol (vitamin D2) 25,000 50,000 unit PO WEEKLY 03/08/21 09/27/24 History unit capsule multivitamin with minerals (Daily 1 tablet PO DAILY 03/08/21 09/27/24 History Multivitamin-Minerals tablet) potassium chloride 10 mEq 10 meq PO BID 09/16/24 09/27/24 History tablet,extended release docusate sodium 100 mg capsule 100 mg PO BID constipation #60 09/21/24 09/27/24 Rx caps ergocalciferol (vitamin D2) 50 mcg 100 mcg PO DAILY 09/27/24 09/27/24 History (2,000 unit) tablet docusate sodium 100 mg capsule 100 mg PO Q12HR #60 caps 10/12/24 Rx lactulose 10 gram/15 mL oral 20 g (30 mL) PO Q12H #1,800 mL 10/12/24 Rx solution levetiracetam 250 mg tablet 750 mg (3 x 250 mg) PO Q12HR #180 10/12/24 Rx tabs magnesium oxide 400 mg (241.3 mg 400 mg PO DAILY #60 tabs 10/12/24 Rx magnesium) tablet oxycodone 5 mg tablet 5 mg PO Q4H PRN Pain Rated 7-10 10/12/24 Rx #15 tabs pantoprazole 20 mg tablet,delayed 20 mg PO Q12HR #60 tabs 10/12/24 Rx release (Protonix) polysaccharide iron complex 150 mg 150 mg PO DAILY@0800 #6 caps 10/12/24 Rx iron capsule metoclopramide HCl 10 mg tablet 10 mg PO Q6H PRN nausea and 10/13/24 Rx (Reglan) vomiting #60 tabs Allergies Allergy/AdvReac Type Severity Reaction Status Date / Time lorazepam Allergy Unknown Verified 10/24/24 19:22 Vital Signs Vital Signs - 24 hr 10/24/24 17:32 10/24/24 19:22 10/24/24 20:39 Temperature 97.6 F Pulse Rate 106 H 102 H 90 Respiratory Rate 18 16 16 Blood Pressure 145/79 H 120/60 121/62 Pulse Oximetry 97 94 99 H&P: Results Labs Labs: Laboratory Tests 10/24/24 17:54 10/24/24 17:54 10/24/24 10/24/24 17:54 19:18 WBC 7.3 RBC 2.84 L Hgb 8.5 L Hct 27.1 L MCV 95.4 MCH 29.9 MCHC 31.4 L RDW 14.9 H Plt Count 184 MPV 9.2 Immature Gran % (Auto) 0.6 H Neut % (Auto) 78.6 H Lymph % (Auto) 10.3 L Parke % (Auto) 9.5 H Eos % (Auto) 0.6 Baso % (Auto) 0.4 Lymph # (Auto) 0.75 L Parke # (Auto) 0.7 H Eos # (Auto) 0.0 Baso # (Auto) 0.0 Abs Immat Gran (auto) 0.04 H Absolute Neuts (auto) 5.7 Absolute Nucleated RBC 0.000 Nucleated RBC % 0.0 Sodium 133 L Potassium 4.7 Chloride 101 Carbon Dioxide 24 Anion Gap 8 BUN 38 H Creatinine 0.97 Estim Creat Clear Calc 43 Estimated GFR 57 L Glucose 115 H Lactic Acid 0.6 L Calcium 8.8 Total Bilirubin 0.3 AST 30 ALT 16 Alkaline Phosphatase 154 H Total Protein 6.0 L Albumin 3.5 Lipase 271 Urine Color Yellow Urine Appearance Turbid H Urine pH 8.0 Ur Specific [place] 1.015 Urine Protein 2+ H Urine Glucose (UA) Negative Urine Ketones Negative Ur Blood (Man) 2+ H Urine Nitrate Negative Urine Bilirubin Negative Urine Urobilinogen 0.2 Add Ur Microanalysis Reviewed Leukocyte Esterase Rfl 3+ H Urine RBC 21-50 H Urine WBC >100 H Ur Squamous Epith Cells None seen Urine Bacteria 4+ H Impressions Abdomen/Pelvis CT 10/24/24 19:41 IMPRESSION: 1. No evidence of appendicitis, diverticulitis or intestinal obstruction. 2. Highly suggestive of abscess in the right pararectal area. 3. Markedly thickened rectal wall with distended colon by gases. Further evaluation of the rectum is advised. 4. Hypodensities in both kidneys which may indicate pyelonephritis. Dilated ureters are also noted. 5. Thickened wall of the urinary bladder which may indicate cystitis versus infiltrative process. Further evaluation advised. 6. Intrahepatic and extrahepatic biliary dilatation. 7. Cholelithiasis. 8. Hepatomegaly. All imaging and EKGs personally reviewed and interpreted. And unless stated otherwise agree with radiologic and cardiology interpretation.
--- OUTSIDE RECORDS SUMMARY | 2024-10-24 21:36 | XMS_ITS | CONTINUITY OF CARE DOCUMENT ---
Author Name angel ortiz Address Unknown Organization [facility] Address [address] [place] [address] Phone [phone] Care Team Providers Care Direct Support Staff Name Role Phone Dale ANN, Janie Unavailable Janie Hunter MD Unavailable INSURANCE PROVIDERS Payer name Policy type / Coverage type [place] red alliance party ID HEALTHCARE AND FAMILY SERVICES Medicaid 1 [id number] [place] MEDICARE Medicare [id number]
--- OUTSIDE RECORDS SUMMARY | 2024-10-24 21:36 | XMS_ITS | Referral Summary ---
Author Organization [facility] Address [address] [place] [address] Care Team Providers Care Radio Mechanic Name Role Phone Anish Goldstein MD [...] Not on file Insurance MEDICARE IDPA MEDICARE [facility] Care Teams Radio Mechanic Relationship Specialty Start Date End Date Anish Goldstein MD PCP - General Emergency Medicine 06/17/19
--- OUTSIDE RECORDS SUMMARY | 2024-10-24 21:36 | XMS_ITS | Clinical Summary ---
Author Organization [facility] Address [address] [place] [address] Care Team Providers Care Senior Quality Assurance Specialist Name Role Phone Darren Solomon Primary Care Provider + Source Comments [facility],non-owned Affiliates and Associated Physician Practices is amultiple site organization consisting of ambulatory clinics and hospital sitesin [place], [place], [place] and [place]. This disclosure is being madepursuant to the Care Everywhere program and may not contain all information available regarding this patient. 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 RETROFITTING TECHNICIAN Gender Identity Not on file Sexual Orientation Not on file Last Filed Vital Signs Vital Sign Reading Time Taken Comments Blood Pressure 123/50 04/20/2018 12:50 PM FUEL RETROFITTING TECHNICIAN Pulse 86 04/20/2018 12:50 PM FUEL RETROFITTING TECHNICIAN Temperature 36.4 C (97.5 F) 04/20/2018 12:50 PM FUEL RETROFITTING TECHNICIAN Respiratory Rate 18 04/20/2018 12:50 PM FUEL RETROFITTING TECHNICIAN Oxygen Saturation 100% 04/20/2018 12:50 PM FUEL RETROFITTING TECHNICIAN Inhaled Oxygen Concentration - - Weight 45.4 [...] 11:36 PM 03/05/2018 1:07 AM Care Teams Senior Quality Assurance Specialist Relationship Specialty Start Date End Date Darren Solomon PA [address] [place] [address] PCP - General Physician Furnace Charger 03/02/18
--- OUTSIDE RECORDS SUMMARY | 2024-10-24 21:36 | XMS_ITS | Clinical Summary ---
Author Organization [facility] Address [address] [place] [address] Care Team Providers Care Financial Reserve Clerk Name Role Phone Anish Goldstein MD Primary [...] PICC central line placement 03/13/2018 Overview (07/19/2019): [facility] Abdominal pain, generalized 03/04/2018 [...] Not on file Insurance MEDICARE IDPA MEDICARE [facility] Care Teams Financial Reserve Clerk Relationship Specialty Start Date End Date Anish Goldstein MD PCP - General Emergency Medicine 06/17/19
--- OUTSIDE RECORDS SUMMARY | 2024-10-24 21:38 | XMS_ITS | CONTINUITY OF CARE DOCUMENT ---
Author Name angel ortiz Address Unknown Organization [facility] Address [address] [place] [address] Phone [phone] Care Team Providers Care Concession Stand Attendant Name Role Phone Dale ANN, Janie Unavailable Janie Hunter MD Unavailable INSURANCE PROVIDERS Payer name Policy type / Coverage type [place] red republican ID HEALTHCARE AND FAMILY SERVICES Medicaid 1 [id number] [place] MEDICARE Medicare [id number]
--- NOTE | 2024-10-24 21:42 | PC.NURSE ---
Patient IV abx ordered and zosyn had already infused when ERP went to see patient and then ordered blood cultures. ERP notified that zosyn had already infused and ERP gave order to still draw blood cultures.
[2024-10-24 23:03] LABS: Toxigenic C. Diff NEGATIVE (NEGATIVE)
[2024-10-25] MEDS: LACTATED RINGERS 1,000 ML 75 ML IV CONT ×2 (00:26→17:26)
[2024-10-25] MEDS: PIPERACILLN/TAZ 3.375GM/NS50ML 3.375 GM/50 ML BAG IVPB ×5 (01:41→23:45)
[2024-10-25 05:48] VITALS: BP 120/55; PULSE 118; RESP 16; TEMP 36.1; O2SAT 96
[2024-10-25] MEDS: CHOLECALCIFEROL 1,000 UNITS TABLET 4000 UNITS PO (09:47)
[2024-10-25] MEDS: IRBESARTAN 75 MG TABLET PO (09:47)
[2024-10-25] MEDS: DOCUSATE SODIUM 100 MG CAPSULE PO ×2 (09:47→17:27)
[2024-10-25] MEDS: THERAPEUTIC MULTIVITAMINS/MINERALS TAB (*BKC) 1 TABLET PO (09:47)
[2024-10-25] MEDS: PANTOPRAZOLE SOD SESQUIHYDRATE 20 MG TAB PO ×2 (09:47→21:35)
[2024-10-25] MEDS: levETIRAcetam 250 MG TABLET 750 MG PO ×2 (09:47→21:35)
[2024-10-25] MEDS: MAGNESIUM OXIDE 400 MG TABLET PO (09:48)
[2024-10-25] MEDS: ACIDOPHILUS/BULGARICUS CHEWABLE TABLET 1 TABLET PO (09:48)
[2024-10-25] MEDS: POTASSIUM CHLORIDE 10 MEQ ER TABLET PO ×2 (09:48→17:27)
--- NOTE | 2024-10-25 10:23 | PM.IMPN ---
Progress Note: A&P Assessment and Plan (1) Hypertension: Qualifiers: Hypertension type: primary hypertension Qualified Code(s): I10 - Essential (primary) hypertension Code(s): I10 - Essential (primary) hypertension Status: Chronic (2) Perirectal abscess: Code(s): K61.1 - Rectal abscess Status: Acute (3) Bowel obstruction: Qualifiers: Intestinal obstruction type: fecal impaction Qualified Code(s): K56.41 - Fecal impaction Code(s): K56.609 - Unspecified intestinal obstruction, unspecified as to partial versus complete obstruction Status: Acute (4) Presence of IVC filter: Code(s): Z95.828 - Presence of other vascular implants and grafts Status: Chronic (5) Dementia: Code(s): F03.90 - Unspecified dementia, unspecified severity, without behavioral disturbance, psychotic disturbance, mood disturbance, and anxiety Status: Chronic (6) Seizure as late effect of cerebrovascular accident (CVA): Code(s): I69.398 - Other sequelae of cerebral infarction; R56.9 - Unspecified convulsions Status: Acute (7) Constipation: Qualifiers: Constipation type: chronic idiopathic constipation Qualified Code(s): K59.04 - Chronic idiopathic constipation Code(s): K59.00 - Constipation, unspecified Status: Acute Plan 64-year-old female with a past medical history of dementia, intellectual disability, anxiety and depression, CHF, coronary artery disease, DVT, ulcerative colitis, chronic kidney disease, neurogenic bladder with chronic indwelling Kemp catheter spinal stenosis, chronic contractures of bilateral lower extremities and prior small-bowel obstruction who presented to the ER via EMS from care home for nausea and vomiting. Admitted for perirectal abscess with proctitis in patient with ulcerative colitis. started on Zosyn IV C diff PCR was collected in ed and negative - chronic Kemp catheter in place due to neurogenic bladder- kemp was changed in ED and ua was collected. - UA was suspicious for possible UTI and she was started on antibiotics - previous UA grew S the Pseudomonas infections but sensitive to most antibiotics. WBC normal, no fever- so suspect that her abnormal UA urine is more due to her chronic indwelling Kemp in less likely due to acute urinary tract infection. She is likely has asymptomatic bacteriuria with chronic colonization. Urine cultures are pending. Follow CT of the abdomen pelvis was performed which demonstrated possible right perirectal abscess with markedly thickened rectal wall and distended colon. CT also demonstrated thickened wall the bladder. . Blood cultures have been obtained and are pending- of note- BC were obtained after the 1st dose of Zosyn was administered. - surgery was consulted - GI was consulted # seizures 10/01/2024 (required IV Ativan). Loaded with Keppra which was continued Neurology was following. CT head was negative. -continue home antihypertensives, psychiatric medications and PPI therapy. Time Spent With Patient Time with patient: 25 - 35 minutes Subjective Date/time seen: 10/25/24 10:23 Interval history: Uncooperative 64-year-old female with a past medical history of dementia, intellectual disability, anxiety and depression, CHF, coronary artery disease, DVT, ulcerative colitis, chronic kidney disease, neurogenic bladder with chronic indwelling Kemp catheter spinal stenosis, chronic contractures of bilateral lower extremities and prior small-bowel obstruction who presented to the ER via EMS from started care home due to nausea and vomiting... Patient reportedly had left lower abdominal pain. At the time of my evaluation the patient grimaced and groaned with palpation of the entire abdomen. She evidently has chronic abdominal pain. She has multiple abdominal scars. She has been afebrile. stool was sent down for C diff. C diff PCR was negative. Patient does have a chronic Kemp catheter in place due to neurogenic bladder her urine visually was abnormal in the catheter bag. ER nursing staff change the patient's Kemp catheter and sent UA from the new catheter bag which was suspicious for possible urinary tract infection versus chronic findings. CT of the abdomen pelvis was performed which demonstrated possible right perirectal abscess with markedly thickened rectal wall and distended colon. CT also demonstrated thickened wall the bladder. Urine in the catheter bag was light yellow cloudy and turbid. Past medical history social history surgical history were all reviewed. Family history was unobtainable due to patient's mentation. Review of systems was unobtainable due to patient's baseline dementia intellectual disability and uncooperative state. Pt is seen and examined. she is poor historian. Appears in no distress. Review of Systems Review of Systems: All systems reviewed & are unremarkable except as noted in HPI and below Exam Const: General: comfortable; No no acute distress Resp: Effort & Inspection: normal respiratory effort Auscultation: clear to auscultation bilaterally Cardio: Rate: regular rate Rhythm: regular rhythm GI: GI Palp: Yes Soft to palpation Auscultation: normal bowel sounds Urinary Catheter: Urinary Catheter: patent and draining Objective Data Vital Signs Vital Signs: Vital Signs - 24 hr 10/24/24 17:32 10/24/24 19:22 10/24/24 19:22 Temperature 97.6 F Pulse Rate 106 H 102 H Respiratory Rate 18 16 Blood Pressure 145/79 H 120/60 Pulse Oximetry 97 94 96 Oxygen Delivery 10/24/24 19:30 10/24/24 19:31 10/24/24 19:52 Temperature Pulse Rate Respiratory Rate Blood Pressure 108/94 H Pulse Oximetry 96 95 98 Oxygen Delivery 10/24/24 20:00 10/24/24 20:01 10/24/24 20:17 Temperature Pulse Rate 76 Respiratory Rate 17 Blood Pressure 129/68 Pulse Oximetry 97 97 97 Oxygen Delivery 10/24/24 20:34 10/24/24 20:39 10/24/24 20:45 Temperature Pulse Rate 90 Respiratory Rate 16 Blood Pressure 121/62 Pulse Oximetry 98 99 98 Oxygen Delivery 10/24/24 21:51 10/24/24 23:00 10/24/24 23:07 Temperature 96.8 F L Pulse Rate 122 H Respiratory Rate 16 Blood Pressure 117/55 L Pulse Oximetry 98 97 Oxygen Delivery Room Air 10/25/24 05:48 Temperature 96.9 F L Pulse Rate 118 H Respiratory Rate 16 Blood Pressure 120/55 L Pulse Oximetry 96 Oxygen Delivery Intake/Output Intake/Output: Intake & Output 10/22/24 10/23/24 10/24/24 10/25/24 23:59 23:59 23:59 23:59 Intake Total 1050 50 Output Total 750 450 Balance 300 -400 Meds/Results Medications: Active Medications Generic Name Dose Route Start Last Admin Trade Name Freq PRN Reason Stop Dose Admin Acetaminophen 1,000 mg 10/25/24 08:02 Acetaminophen 500 Mg Tablet PO Q6H PRN Pain 1-3 or fever Docusate Sodium 100 mg 10/25/24 09:00 10/25/24 09:47 Docusate Sodium 100 Mg Capsule PO 100 mg BID [facility] Administration Hydroxyzine Pamoate 25 mg 10/25/24 17:00 Hydroxyzine Pamoate 25 Mg Capsule PO BID [facility] Piperacillin/Tazobactam/Dextrose 3.375 gm in 50 mls @ 100 mls/hr 10/25/24 02:00 10/25/24 09:47 Zosyn 3.375 Gm/Ns 50 Ml IVPB 100 mls/hr Q6HR [facility] Administration Lactated Ringer's 1,000 mls @ 75 mls/hr 10/24/24 21:15 10/25/24 00:26 Lr - Lactated Ringers Iv IV CONT 75 mls/hr .[id number] SONIA Administration Irbesartan 75 mg 10/25/24 09:00 10/25/24 09:47 Irbesartan 75 Mg Tablet PO 75 mg DAILY SONIA Administration Lactobacillus Acidophilus 1 tablet 10/25/24 09:00 10/25/24 09:48 Acidophilus/Bulgaricus Chewable Tablet PO 1 tablet DAILY SONIA Administration Levetiracetam 750 mg 10/25/24 09:00 10/25/24 09:47 Levetiracetam 250 Mg Tablet PO 750 mg Q12HR SONIA Administration Magnesium Oxide 400 mg 10/25/24 09:00 10/25/24 09:48 Magnesium Oxide 400 Mg Tablet PO 400 mg DAILY OSNIA Administration Mirtazapine 15 mg 10/25/24 21:00 Mirtazapine 15 Mg Tablet PO HS SONIA Montelukast Sodium 10 mg 10/25/24 21:00 Montelukast Sodium 10 Mg Tablet PO HS [facility] Multivitamins/Calcium 1 tablet 10/25/24 09:00 10/25/24 09:47 Therapeutic Multivitamins/Minerals Tab (*Bkc) PO 1 tablet DAILY SONIA Administration Oxycodone HCl 5 mg 10/25/24 08:02 Oxycodone Hcl (*Crx) 5 Mg Tab Ir PO Q4H PRN Pain Rated 7-10 Pantoprazole Sodium 20 mg 10/25/24 09:00 10/25/24 09:47 Pantoprazole Sod Sesquihydrate 20 Mg Tab PO 20 mg Q12HR SONIA Administration Potassium Chloride 10 meq 10/25/24 09:00 10/25/24 09:48 Potassium Chloride 10 Meq Er Tablet PO 10 meq BID [facility]ONIA Administration Simvastatin 20 mg 10/25/24 21:00 Simvastatin 20 Mg Tablet PO HS SONIA Sucralfate 1 gm 10/25/24 16:30 Sucralfate 1 Gm Tablet PO BIDAC SONIA Vitamin D 4,000 units 10/25/24 09:00 10/25/24 09:47 Cholecalciferol 1,000 Units Tablet PO 4,000 units DAILY SONIA Administration Radiology Results: ITS Impressions Abdomen/Pelvis CT 10/24/24 19:41 IMPRESSION: 1. No evidence of appendicitis, diverticulitis or intestinal obstruction. 2. Highly suggestive of abscess in the right pararectal area. 3. Markedly thickened rectal wall with distended colon by gases. Further evaluation of the rectum is advised. 4. Hypodensities in both kidneys which may indicate pyelonephritis. Dilated ureters are also noted. 5. Thickened wall of the urinary bladder which may indicate cystitis versus infiltrative process. Further evaluation advised. 6. Intrahepatic and extrahepatic biliary dilatation. 7. Cholelithiasis. 8. Hepatomegaly. Labs Labs: Laboratory Results - last 24 hr 10/24/24 10/24/24 10/24/24 17:54 19:18 22:12 WBC 7.3 RBC 2.84 L Hgb 8.5 L Hct 27.1 L MCV 95.4 MCH 29.9 MCHC 31.4 L RDW 14.9 H Plt Count 184 MPV 9.2 Immature Gran % (Auto) 0.6 H Neut % (Auto) 78.6 H Lymph % (Auto) 10.3 L [place] % (Auto) 9.5 H Eos % (Auto) 0.6 Baso % (Auto) 0.4 Lymph # (Auto) 0.75 L [place] # (Auto) 0.7 H Eos # (Auto) 0.0 Baso # (Auto) 0.0 Abs Immat Gran (auto) 0.04 H Absolute Neuts (auto) 5.7 Absolute Nucleated RBC 0.000 Nucleated RBC % 0.0 Sodium 133 L Potassium 4.7 Chloride 101 Carbon Dioxide 24 Anion Gap 8 BUN 38 H Creatinine 0.97 Estim Creat Clear Calc 43 Estimated GFR 57 L Glucose 115 H Lactic Acid 0.6 L Calcium 8.8 Total Bilirubin 0.3 AST 30 ALT 16 Alkaline Phosphatase 154 H Total Protein 6.0 L Albumin 3.5 Lipase 271 Urine Color Yellow Urine Appearance Turbid H Urine pH 8.0 Ur Specific [place] 1.015 Urine Protein 2+ H Urine Glucose (UA) Negative Urine Ketones Negative Ur Blood (Man) 2+ H Urine Nitrate Negative Urine Bilirubin Negative Urine Urobilinogen 0.2 Add Ur Microanalysis Reviewed Leukocyte Esterase Rfl 3+ H Urine RBC 21-50 H Urine WBC >100 H Ur Squamous Epith Cells None seen Urine Bacteria 4+ H C. difficile (PCR) Negative Quality VTE Prophylaxis VTE prophylaxis: mechanical ordered (Patient has IVC filter in place. Pharmacologic prophylaxis not indicated due to patient's recurrent anemia.)
--- NOTE | 2024-10-25 10:33 | P.CONGS_ITS ---
Assessment and Plan Assessment and plan (1) Acute proctitis: Code(s): K62.89 - Other specified diseases of anus and rectum Status: Acute Assessment and Plan: Continue IV antibiotics, no perirectal abscess visible externally but CT showed possible right perirectal abscess. There is also thickening of the rectal wall with a distended colon proximally. Will order Hypaque enema to further evaluate possible large bowel obstruction. (2) Perirectal abscess: Code(s): K61.1 - Rectal abscess Status: Acute Assessment and Plan: Continue IV antibiotics (3) Cholelithiasis: Code(s): K80.20 - Calculus of gallbladder without cholecystitis without obstruction Status: Acute Assessment and Plan: CT scan on this admission and previously showed cholelithiasis with intra and extrahepatic biliary dilatation, but on her CT yesterday there is mention of possible common bile duct stones. This doesn't appear to be causing a biliary obstruction, her bilirubin is normal. Will consult GI and try ordering an MRCP to further evaluate. Not sure if she will be able to tolerate an MRI with her mentation and they will likely need additional information for IVC filter to see if she can have MRI. (4) Dilation of biliary tract: Code(s): K83.8 - Other specified diseases of biliary tract Status: Acute (5) Presence of IVC filter: Code(s): Z95.828 - Presence of other vascular implants and grafts Status: Chronic (6) Constipation: Qualifiers: Constipation type: chronic idiopathic constipation Qualified Code(s): K 59.04 - Chronic idiopathic constipation Code(s): K59.00 - Constipation, unspecified Status: Acute (7) Chronic indwelling White catheter: Code(s): Z97.8 - Presence of other specified devices Status: Acute Plan I have discussed the patient's case and plan of care with Dr. Zheng. History of Present Illness Consult details Consult date: 10/25/24 Reason for consult: other (Perirectal abscess) Requesting physician: Juan Manuel Zamudio MD Narrative: This is a 64-year-old woman with history of dementia, hypertension, hyperlipidemia, coronary artery disease, ulcerative colitis, neurogenic bladder with indwelling White catheter, and several other comorbidities who we have been asked to see in surgical consultation for perirectal abscess. She is known to our service from recent hospitalizations for fecal impaction and bowel obstructions. She improved with medical management. Her last hospitalization was for small bowel obstruction, KATEY, and possible UTI. She was discharged about 2 weeks ago. She was brought back into the ED yesterday for evaluation of left- sided abdominal pain, nausea, and vomiting. She is a poor historian as mentioned previously, therefore history is obtained by review of the electronic medical record. Labs showed a white blood cell count of 7300. She had a large stool in the ED and that was sent for C diff, which was negative. CT scan of the abdomen and pelvis demonstrated possible right perirectal abscess with markedly thickened rectal wall and distended colon, bladder wall thickening, cholelithiasis, hepatomegaly, and intraheptaic and extrahepatic biliary dilatation with possible stones in the common bile duct. She was admitted and started on IV Zosyn. Labs showed a mildly elevated alk-phos of 154, but otherwise normal liver enzymes. Total bilirubin normal. She is now seen on the medical floor. She is still reporting left lower quadrant abdominal pain. Review of Systems 2 Review of Systems: ROS unobtainable: Yes unobtainable due to medical condition [facility] Past Medical History Medical History (Updated 10/25/24 @ 10:58 by JACKELYN Maynard) Seizure as late effect of cerebrovascular accident (CVA) Presence of IVC filter Hypertension Neurogenic bladder Deep venous thrombosis Coronary artery disease Poorly documented and patient denies. Anxiety Chronic anemia Arthritis Gastroesophageal reflux disease Ulcerative colitis Hyperlipidemia Dementia Chronic indwelling White catheter Surgical History Surgical History History of colon resection Family History Family History Other Family history unknown Social History Social History Social History: Surrogate decision maker: Amanda Parker, sibling. Code status: Full code. Smoking status: Unknown if ever smoked Alcohol intake: never Substance use: never Substance use type: does not use Do You Feel Safe in your Home?: Yes Lack of Transportation: No Lack of Food: Never True Current Housing: I Have Housing Concerned About Future Housing: No Difficulty Paying Gas/Electric Bills: No Difficulty Paying for Meds: No Currently Unemployed: No Education: Don't Know Difficulty w/ Childcare or Family Care: No Additional living arrangements comments: The patient is a resident at [facility]. Additional occupation/education comments: Disabled. Spiritual care concerns: No Meds Home Medications and Allergies Home Medications ?Medication ?Instructions ?Recorded ?Confirmed ?Type hydroxyzine pamoate 25 mg capsule 25 mg PO BID 03/07/21 10/24/24 History mirtazapine 15 mg tablet 15 mg PO HS 03/07/21 10/24/24 History montelukast 10 mg tablet 10 mg PO DAILY 03/07/21 10/24/24 History simvastatin 20 mg tablet 20 mg PO HS 03/07/21 10/24/24 History sucralfate 1 gram tablet 1 g PO BID 03/07/21 10/24/24 History Lactobacillus acidophilus 1 cap PO DAILY 03/08/21 10/24/24 History (Acidophilus capsule) acetaminophen 500 mg capsule 1,000 mg PO Q6H PRN Pain 03/08/21 10/24/24 History ascorbate calcium (vitamin C) 500 500 mg PO BID 03/08/21 10/24/24 History mg tablet ergocalciferol (vitamin D2) 25,000 50,000 unit PO WEEKLY 03/08/21 10/24/24 History unit capsule multivitamin with minerals (Daily 1 tablet PO DAILY 03/08/21 10/24/24 History Multivitamin-Minerals tablet) potassium chloride 10 mEq 10 meq PO BID 09/16/24 10/24/24 History tablet,extended release docusate sodium 100 mg capsule 100 mg PO BID constipation #60 09/21/24 10/24/24 Rx caps ergocalciferol (vitamin D2) 50 mcg 100 mcg PO DAILY 09/27/24 10/24/24 History (2,000 unit) tablet lactulose 10 gram/15 mL oral 20 g (30 mL) PO Q12H #1,800 mL 10/12/24 10/24/24 Rx solution levetiracetam 250 mg tablet 750 mg (3 x 250 mg) PO Q12HR #180 10/12/24 10/24/24 Rx tabs magnesium oxide 400 mg (241.3 mg 400 mg PO DAILY #60 tabs 10/12/24 10/24/24 Rx magnesium) tablet oxycodone 5 mg tablet 5 mg PO Q4H PRN Pain Rated 7-10 10/12/24 10/24/24 Rx #15 tabs pantoprazole 20 mg tablet,delayed 20 mg PO Q12HR #60 tabs 10/12/24 10/24/24 Rx release (Protonix) metoclopramide HCl 10 mg tablet 10 mg PO Q6H PRN nausea and 10/13/24 10/24/24 Rx (Reglan) vomiting #60 tabs bisacodyl 10 mg rectal suppository 10 mg RECTAL Q12H PRN constipation 10/24/24 10/24/24 History irbesartan 75 mg tablet 75 mg PO DAILY 10/24/24 10/24/24 History sodium phosphates 19 gram-7 118 ml RECTAL DAILY PRN 10/24/24 10/24/24 History gram/118 mL enema (Fleet Enema) constipation Allergies Allergy/AdvReac Type Severity Reaction Status Date / Time lorazepam Allergy Unknown Verified 10/24/24 19:22 Vital Signs Vital Signs - 24 hr 10/24/24 17:32 10/24/24 19:22 10/24/24 19:22 Temperature 97.6 F Pulse Rate 106 H 102 H Respiratory Rate 18 16 Blood Pressure 145/79 H 120/60 Pulse Oximetry 97 94 96 Oxygen Delivery 10/24/24 19:30 10/24/24 19:31 10/24/24 19:52 Temperature Pulse Rate Respiratory Rate Blood Pressure 108/94 H Pulse Oximetry 96 95 98 Oxygen Delivery 10/24/24 20:00 10/24/24 20:01 10/24/24 20:17 Temperature Pulse Rate 76 Respiratory Rate 17 Blood Pressure 129/68 Pulse Oximetry 97 97 97 Oxygen Delivery 10/24/24 20:34 10/24/24 20:39 10/24/24 20:45 Temperature Pulse Rate 90 Respiratory Rate 16 Blood Pressure 121/62 Pulse Oximetry 98 99 98 Oxygen Delivery 10/24/24 21:51 10/24/24 23:00 10/24/24 23:07 Temperature 96.8 F L Pulse Rate 122 H Respiratory Rate 16 Blood Pressure 117/55 L Pulse Oximetry 98 97 Oxygen Delivery Room Air 10/25/24 05:48 Temperature 96.9 F L Pulse Rate 118 H Respiratory Rate 16 Blood Pressure 120/55 L Pulse Oximetry 96 Oxygen Delivery Exam 2 Const: General: no acute distress Nutritional Appearance: average body habitus Orientation/consciousness: oriented to person and Other orientation findings (refuses to answer some questions) HENMT: Head: normocephalic and atraumatic Ears: hearing grossly normal bilaterally Mouth: Yes moist mucous membranes Eyes: General: appearance normal, both eyes and all related structures P upils: Equal, round and reactive pupils present Neck: Neck: normal visual inspection and full ROM Resp: Effort & Inspection: no respiratory distress Auscultation: clear to auscultation bilaterally Cardio: Rate: regular rate Rhythm: regular rhythm Peripheral pulses: P eripheral pulses 2+ throughout GI: Inspection: non-distended and scar (large midline scar with multiple incisional hernias, no bulges and nontende) GI Palp: Yes Soft to palpation, Yes Tenderness to palpation present (GI) (LLQ, mild), No Guarding due to palpation present (GI) and No Rebound tenderness present Auscultation: normal bowel sounds Other: Soft brown stool in depends when turned for rectal exam, there is superficial maceration of the skin on the left buttocks with contact dermatitis in the area of the skin on her buttocks where the diaper sits, no open wounds. No external induration or erythema that is visible on external exam. Attempted digital rectal exam, but she had difficulty tolerating as this was painful, no obvious mass or abnormalities felt but exam was limited due to patient's tolerance. Urinary Catheter: Urinary Catheter: patent and draining (urine yellow) Skin: General skin exam: normal color Neuro: General: other (debilitated with contracted lower extremities and upper extremities) Motor exam (neuro): Other motor observations present (paralysis of the right side with slight movement of the left upper ext.) Extrem: General: no edema and other (contracted, limited exam) Psych: Attitude: Guarded attititude/behavior present Insight: Limited insight present (Psych) Judgement: Limited judgement present (Psych) Results Labs 10/24/24 17:54 10/24/24 17:54 Labs: Abnormal lab results 10/24/24 10/24/24 Range/Units 17:54 19:18 RBC 2.84 L (4.2-5.4) M/mm3 Hgb 8.5 L (12.0-15.0) g/dL Hct 27.1 L (37.0-47.0) % MCHC 31.4 L (32-36) g/dl RDW 14.9 H (11.5-14.5) % Immature Gran % (Auto) 0.6 H (0-0.5) % Neut % (Auto) 78.6 H (45.5-73.1) % Lymph % (Auto) 10.3 L (18.3-44.2) % Worth % (Auto) 9.5 H (2.6-8.5) % Lymph # (Auto) 0.75 L (0.9-3.2) K/mm3 Worth # (Auto) 0.7 H (0.1-0.6) K/mm3 Abs Immat Gran (auto) 0.04 H (0.00-0.031) K/mm3 Sodium 133 L (137-145) mmol/L BUN 38 H (7-17) mg/dL Estimated GFR 57 L (59 - ) Glucose 115 H (65-110) mg/dL Lactic Acid 0.6 L (0.7-2.0) mmol/L Alkaline Phosphatase 154 H (38-126) U/L Total Protein 6.0 L (6.3-8.2) g/dL Urine Appearance Turbid H (Clear) Urine Protein 2+ H (Negative) mg/dL Ur Blood (Man) 2+ H (Negative) Leukocyte Esterase Rfl 3+ H (Negative) CURLY/UL Urine RBC 21-50 H (0-2) /hpf Urine WBC >100 H (0-3) /hpf Urine Bacteria 4+ H /hpf Diabetes panel 10/24/24 Range/Units 17:54 Sodium 133 L (137-145) mmol/L Potassium 4.7 (3.4-5.0) mmol/L Chloride 101 (98-107) mmol/L Carbon Dioxide 24 (22-30) mmol/L BUN 38 H (7-17) mg/dL Creatinine 0.97 (0.7-1.0) mg/dL Glucose 115 H (65-110) mg/dL Calcium 8.8 (8.4-10.2) mg/dL AST 30 (14-36) U/L ALT 16 (6-35) U/L Alkaline Phosphatase 154 H (38-126) U/L Total Protein 6.0 L (6.3-8.2) g/dL Albumin 3.5 (3.5-5.1) g/dL Calcium panel 10/24/24 Range/Units 17:54 Calcium 8.8 (8.4-10.2) mg/dL Albumin 3.5 (3.5-5.1) g/dL Pituitary panel 10/24/24 Range/Units 17:54 Sodium 133 L (137-145) mmol/L Potassium 4.7 (3.4-5.0) mmol/L Chloride 101 (98-107) mmol/L Carbon Dioxide 24 (22-30) mmol/L BUN 38 H (7-17) mg/dL Creatinine 0.97 (0.7-1.0) mg/dL Glucose 115 H (65-110) mg/dL Calcium 8.8 (8.4-10.2) mg/dL Adrenal panel 10/24/24 Range/Units 17:54 Sodium 133 L (137-145) mmol/L Potassium 4.7 (3.4-5.0) mmol/L Chloride 101 (98-107) mmol/L Carbon Dioxide 24 (22-30) mmol/L BUN 38 H (7-17) mg/dL Creatinine 0.97 (0.7-1.0) mg/dL Glucose 115 H (65-110) mg/dL Calcium 8.8 (8.4-10.2) mg/dL Total Bilirubin 0.3 (0.2-1.3) mg/dL AST 30 (14-36) U/L ALT 16 (6-35) U/L Alkaline Phosphatase 154 H (38-126) U/L Total Protein 6.0 L (6.3-8.2) g/dL Albumin 3.5 (3.5-5.1) g/dL All other labs normal. Imaging Additional studies: ITS Impressions Abdomen/Pelvis CT 10/24/24 19:41 IMPRESSION: 1. No evidence of appendicitis, diverticulitis or intestinal obstruction. 2. Highly suggestive of abscess in the right pararectal area. 3. Markedly thickened rectal wall with distended colon by gases. Further evaluation of the rectum is advised. 4. Hypodensities in both kidneys which may indicate pyelonephritis. Dilated ureters are also noted. 5. Thickened wall of the urinary bladder which may indicate cystitis versus infiltrative process. Further evaluation advised. 6. Intrahepatic and extrahepatic biliary dilatation. 7. Cholelithiasis. 8. Hepatomegaly.
[2024-10-25 11:14] VITALS: BMI 24.0
--- NOTE | 2024-10-25 12:53 | P.CONGI_ITS ---
Assessment and Plan Assessment and plan (1) Abnormal findings on imaging of biliary tract: Code(s): R93.2 - Abnormal findings on diagnostic imaging of liver and biliary tract Status: Acute (2) Cholelithiasis: Qualifiers: Cholelithiasis location: gallbladder and bile duct Cholecystitis presence: without cholecystitis Biliary obstruction: without biliary obstruction Qualified Code(s): K80.70 - Calculus of gallbladder and bile duct without cholecystitis without obstruction Code(s): K80.20 - Calculus of gallbladder without cholecystitis without obstruction Status: Acute (3) Elevated alkaline phosphatase level: Code(s): R74.8 - Abnormal levels of other serum enzymes Status: Acute (4) Acute proctitis: Code(s): K62.89 - Other specified diseases of anus and rectum Status: Acute (5) Chronic anemia: Code(s): D64.9 - Anemia, unspecified Status: Chronic Plan 1. Abnormal imaging biliary/ elevated Alk Phos/gallstones: CT showed dilated intrahepatic bile ducts and dilated CBD with possible stones in the CBD. Previous imaging also showed stable intra and extrahepatic bile duct dilation. No pancreatic duct dilation. LFT's were normal except mildly elevated Alk Phos at 154. * MRCP already ordered but this may be difficult given that the patient has been frequently uncooperative this admission * No indication for ERCP at this time 2. Perirectal abscess/Proctitis/chronic constipation: CT showed markedly thickened rectal wall with distended colon by gases and findings highly suggestive of abscess in the right pararectal area. Surgery on patients case and no perirectal abscess was visible externally. XR enema showed moderate amount of scattered colonic stool suggestive of constipation with no evident strictures/obstruction. Unclear etiology but IBD can not be excluded. As there was mention in prior number about possible Dx of Ulcerative Colitis * Continue IV antibiotics * patient would benefit from a colonoscopy once acute inflammatory process has resolved * surgery following * patient is currently on opioids, if constipation occurs start Amitiza 8 mcg BID 3. Chronic anemia: Patient with chronic anemia, etiology likely multifactorial. Hgb averages around 7.5-9. Today Hgb 8.5, Hct 27, MCV 95 and platelets 184. No signs of active GI bleeding. Currently on Lovenox. 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 * Primary care team to continue monitoring and transfuse as needed to keep Hgb >7 Thank you very much for allowing me to share in the care of this very nice patient. This report may have been done utilizing a voice recognition system. Attempts have been made to correct errors. However, there may be uncorrected grammatical, spelling, and recognition errors present. GI Consult Note Consult date/time: 10/25/24 12:53 HPI: Patsy Hugo is a 64-year-old female with a medical history significant for CVA, dementia, seizures, intellectual disability, sedentary status, pressure ulcers around the sacrum, constipation, depression, Hx of DVT, IVC filter placement, GERD, dyslipidemia, recurrent UIT's with chronic indwelling White catheter. [facility] on 10/24/2024. GI has been consulted for CBD dilation and possible CBD stone. A resident of [facility] with abdominal pain. The patient was last seen by GI during a hospitalization September 27- for constipation, chronic anemia, and small-bowel obstruction. Patient admitted yesterday for perirectal abscess, acute UTI and proctitis. Patient unable to provide subjective information due to mental status, she was able to shake her head no when asked if she is having any abdominal pain but no additional information was collected. She was last seen by GI during her hospitalization in mid September and was seen for chronic constipation, SBO and chronic anemia. ENDOSCOPY HISTORY: Colonoscopy and EGD Hx unknown LABS AND STOOL STUDIES: LABS 10/24/2024: Sodium 133, potassium 4.7, BUN 38, creatinine 0.97, GFR 57 WBC 7, Hgb 9, Hct 27, MCV 95, platelets 184 Total bilirubin 0.3, AST 30, ALT 16, Alkaline Phos 154, albumin 3.5 Calcium 8.8, lipase 271 C-Diff negative 10/24/2024 Labs 10/01/2024 Sodium 141, potassium 3.4, BUN 10, creatinine 0.91, GFR >60 WBC 5, Hgb 10, Hct 31, MCV 93, platelets 201, INR 1.1 Total bilirubin 0.7, AST 18, ALT 9, Alkaline Phos 78, albumin 3.2 Lipase 147, procalcitonin 0.3 IMAGING: Enema w/water soluble solution 10/25/2024: IMPRESSION: 1. Moderate amount of scattered colonic stool suggestive of constipation with no evident strictures/obstruction. CT abd/pelvis w/contrast 10/24/2024: Findings: VISUALIZED LOWER CHEST: Dependent atelectatic changes. 2 mm nodule is seen in the right lower lobe near to the oblique fissure laterally. UPPER ABDOMINAL ORGANS: Liver: Dilated intrahepatic bile ducts. Dilated CBD with possible stones in the common bile duct. Hepatomegaly. Gallbladder: Cholelithiasis. Spleen: Normal. Stomach/duodenum: Normal. Pancreas: Normal. Slightly prominent pancreatic duct. Follow-up advised. Adrenals: Normal. Kidneys: Bilateral hydronephrotic changes with dilated ureters. Tiny cysts are seen in both kidneys. The kidneys appear slightly hypodense which may indicate infection. Clinical correlation advised. PELVIC ORGANS: The bladder shows thickened wall which may indicate cystitis versus infiltrative process. Further evaluation advised. White catheter is seen in the bladder with air. BOWEL AND MESENTERY: Colon: Mild sigmoid diverticulosis without diverticulitis. Thickened wall of the rectum is seen suggestive of proctitis. Clinical evaluation advised. Distended colon with gases is noted. No evidence of appendicitis. Small Bowel: Normal. No obstruction. Peritoneum/mesentery: No free air or free fluid. No mesenteric lymphadenopathy. Fluid collection is seen in the right pararectal area measures 3.1 x 2.6x5 cm. This may represent an abscess or fluid collection. Follow-up advised. RETROPERITONEUM: Mild atheromatous disease of the abdominal aorta. IVC filter is noted. No retroperitoneal lymphadenopathy. MUSCULOSKELETAL: Superficial soft tissues: The superficial soft tissues are normal. Bones: Age appropriate degenerative changes of the spine. IMPRESSION: 1. No evidence of appendicitis, diverticulitis or intestinal obstruction. 2. Highly suggestive of abscess in the right pararectal area. 3. Markedly thickened rectal wall with distended colon by gases. Further evaluation of the rectum is advised. 4. Hypodensities in both kidneys which may indicate pyelonephritis. Dilated ureters are also noted. 5. Thickened wall of the urinary bladder which may indicate cystitis versus infiltrative process. Further evaluation advised. 6. Intrahepatic and extrahepatic biliary dilatation. 7. Cholelithiasis. 8. Hepatomegaly. Abdominal Xray 10/12/2024: Impression: Nonspecific bowel gas pattern, similar to prior exam. Small-bowel x-ray 09/27/2024: IMPRESSION: 1. Persistent mildly dilated loops of small bowel but without discrete transition point and with normal small bowel transit time consistent with resolving versus partial small bowel obstruction. CT abd/pelvis w/contrast 09/26/2024: FINDINGS: Motion limited examination. Lower thorax: Bibasilar scar/atelectasis. Small bilateral pleural effusions. Liver: Normal. Biliary/Gallbladder: Gallstones. No inflammatory change. Stable intra and extrahepatic bile duct dilation. Pancreas: No mass or duct dilation. Spleen: Normal. Adrenals:No mass. Kidneys: Bilateral renal cortical thinning. Mild left hydronephrosis with urothelial enhancement. GI tract: Multiple loops of dilated proximal and mid small bowel. Transition point in the mid abdomen (axial 104/196, coronal 49/104), in an area of short segment small bowel wall edema. Normal large bowel. Normal appendix. Mesentery/Peritoneum: No ascites, mass, or free air. Retroperitoneum: No mass. Atherosclerotic calcifications of intra-abdominal arterial vessels. IVC filter. Pelvis: Interval disimpaction. Persistent rectal wall thickening. The urinary bladder is decompressed by White catheter, with the suggestion of urinary bladder wall edema and inflammatory change. Soft Tissues: Soft tissues and body wall unremarkable. Bones: No acute osseous finding. IMPRESSION: Small bilateral pleural effusions. Chronic intra and extra hepatic bile duct dilation. Mid small bowel obstruction, transition point may represent an area of adhesion or short segment infectious, inflammatory, or ischemic colitis. Mild left hydronephrosis and urothelial enhancement may represent ascending infection/pyelitis. Cystitis. Proctitis. CT abd/pelvis w/contrast 09/16/2024: IMPRESSION: High-grade bowel obstruction secondary to fecal impaction with mass effect on the distal ureters causing bilateral hydroureteronephrosis. Review of Systems 2 Review of Systems: ROS unobtainable: Yes unobtainable due to medical condition and unobtainable due to mental status ENT: Reports as per [facility] [place] Past Medical History Medical History (Updated 10/25/24 @ 15:41 by Vee Chou APRN) Seizure as late effect of cerebrovascular accident (CVA) Presence of IVC filter Hypertension Neurogenic bladder Deep venous thrombosis Coronary artery disease Poorly documented and patient denies. Anxiety Chronic anemia Arthritis Gastroesophageal reflux disease Ulcerative colitis Hyperlipidemia Dementia Chronic indwelling White catheter Surgical History Surgical History History of colon resection Family History Family History Other Family history unknown Social History Social History Social History: Surrogate decision maker: Amanda Parker, sibling. Code status: Full code. Smoking status: Unknown if ever smoked Alcohol intake: never Substance use: never Substance use type: does not use Do You Feel Safe in your Home?: Yes Lack of Transportation: No Lack of Food: Never True Current Housing: I Have Housing Concerned About Future Housing: No Difficulty Paying Gas/Electric Bills: No Difficulty Paying for Meds: No Currently Unemployed: No Education: Don't Know Difficulty w/ Childcare or Family Care: No Additional living arrangements comments: The patient is a resident at [facility]. Additional occupation/education comments: Disabled. Spiritual care concerns: No Meds Home Medications and Allergies Home Medications ?Medication ?Instructions ?Recorded ?Confirmed ?Type hydroxyzine pamoate 25 mg capsule 25 mg PO BID 03/07/21 10/24/24 History mirtazapine 15 mg tablet 15 mg PO HS 03/07/21 10/24/24 History montelukast 10 mg tablet 10 mg PO DAILY 03/07/21 10/24/24 History simvastatin 20 mg tablet 20 mg PO HS 03/07/21 10/24/24 History sucralfate 1 gram tablet 1 g PO BID 03/07/21 10/24/24 History Lactobacillus acidophilus 1 cap PO DAILY 03/08/21 10/24/24 History (Acidophilus capsule) acetaminophen 500 mg capsule 1,000 mg PO Q6H PRN Pain 03/08/21 10/24/24 History ascorbate calcium (vitamin C) 500 500 mg PO BID 03/08/21 10/24/24 History mg tablet ergocalciferol (vitamin D2) 25,000 50,000 unit PO WEEKLY 03/08/21 10/24/24 History unit capsule multivitamin with minerals (Daily 1 tablet PO DAILY 03/08/21 10/24/24 History Multivitamin-Minerals tablet) potassium chloride 10 mEq 10 meq PO BID 09/16/24 10/24/24 History tablet,extended release docusate sodium 100 mg capsule 100 mg PO BID constipation #60 09/21/24 10/24/24 Rx caps ergocalciferol (vitamin D2) 50 mcg 100 mcg PO DAILY 09/27/24 10/24/24 History (2,000 unit) tablet lactulose 10 gram/15 mL oral 20 g (30 mL) PO Q12H #1,800 mL 10/12/24 10/24/24 Rx solution levetiracetam 250 mg tablet 750 mg (3 x 250 mg) PO Q12HR #180 10/12/24 10/24/24 Rx tabs magnesium oxide 400 mg (241.3 mg 400 mg PO DAILY #60 tabs 10/12/24 10/24/24 Rx magnesium) tablet oxycodone 5 mg tablet 5 mg PO Q4H PRN Pain Rated 7-10 10/12/24 10/24/24 Rx #15 tabs pantoprazole 20 mg tablet,delayed 20 mg PO Q12HR #60 tabs 10/12/24 10/24/24 Rx release (Protonix) metoclopramide HCl 10 mg tablet 10 mg PO Q6H PRN nausea and 10/13/24 10/24/24 Rx (Reglan) vomiting #60 tabs bisacodyl 10 mg rectal suppository 10 mg RECTAL Q12H PRN constipation 10/24/24 10/24/24 History irbesartan 75 mg tablet 75 mg PO DAILY 10/24/24 10/24/24 History sodium phosphates 19 gram-7 118 ml RECTAL DAILY PRN 10/24/24 10/24/24 History gram/118 mL enema (Fleet Enema) constipation Allergies Allergy/AdvReac Type Severity Reaction Status Date / Time lorazepam Allergy Unknown Verified 10/24/24 19:22 Vital Signs Vital Signs - 24 hr 10/24/24 17:32 10/24/24 19:22 10/24/24 19:22 Temperature 97.6 F Pulse Rate 106 H 102 H Respiratory Rate 18 16 Blood Pressure 145/79 H 120/60 Pulse Oximetry 97 94 96 Oxygen Delivery 10/24/24 19:30 10/24/24 19:31 10/24/24 19:52 Temperature Pulse Rate Respiratory Rate Blood Pressure 108/94 H Pulse Oximetry 96 95 98 Oxygen Delivery 10/24/24 20:00 10/24/24 20:01 10/24/24 20:17 Temperature Pulse Rate 76 Respiratory Rate 17 Blood Pressure 129/68 Pulse Oximetry 97 97 97 Oxygen Delivery 10/24/24 20:34 10/24/24 20:39 10/24/24 20:45 Temperature Pulse Rate 90 Respiratory Rate 16 Blood Pressure 121/62 Pulse Oximetry 98 99 98 Oxygen Delivery 10/24/24 21:51 10/24/24 23:00 10/24/24 23:07 Temperature 96.8 F L Pulse Rate 122 H Respiratory Rate 16 Blood Pressure 117/55 L Pulse Oximetry 98 97 Oxygen Delivery Room Air 10/25/24 05:48 Temperature 96.9 F L Pulse Rate 118 H Respiratory Rate 16 Blood Pressure 120/55 L Pulse Oximetry 96 Oxygen Delivery Exam 2 Const: General: comfortable, no acute distress and well developed HENMT: Head: normal to inspection, normocephalic and atraumatic Mouth: Yes Normal oral and palatal mucosa present and Yes moist mucous membranes Eyes: General: appearance normal, both eyes and all related structures C onjunctivae: conjunctivae normal Sclera: sclerae normal Pupils: Equal, round and reactive pupils present Neck: Neck: normal visual inspection Chest: Chest palpation & inspection: normal inspection of the chest Resp: Effort & Inspection: normal respiratory effort Auscultation: clear to auscultation bilaterally Cardio: Jugular venous distension: no JVD Rate: regular rate Rhythm: r egular rhythm Heart sounds: S1 normal heart sound present and S2 normal heart sound present GI: GI Palp: Yes Soft to palpation and No Guarding due to palpation present (GI) Auscultation: normal bowel sounds Rectal Exam: deferred Urinary Catheter: Urinary Catheter: patent and draining Skin: General skin exam: normal color and no rashes or lesions noted Neuro: General: oriented to person, oriented to place, oriented to time and patient oriented x3 Cranial nerves: Yes Equal, round and reactive pupils present Speech: normal speech Extrem: General: normal to inspection and no clubbing, cyanosis or edema Psych: Appearance: grossly normal and well kempt Affect: normal affect Results Labs 10/24/24 17:54 10/24/24 17:54 Labs: Short CBC 10/24/24 Range/Units 17:54 WBC 7.3 (4.5-10.0) K/mm3 Hgb 8.5 L (12.0-15.0) g/dL Hct 27.1 L (37.0-47.0) % Plt Count 184 (150-375) k/mm3 BMP 10/24/24 17:54 Sodium 133 L Potassium 4.7 Chloride 101 Carbon Dioxide 24 BUN 38 H Creatinine 0.97 Glucose 115 H Calcium 8.8 Liver Function 10/24/24 Range/Units 17:54 Total Bilirubin 0.3 (0.2-1.3) mg/dL AST 30 (14-36) U/L ALT 16 (6-35) U/L Alkaline Phosphatase 154 H (38-126) U/L Albumin 3.5 (3.5-5.1) g/dL Urine 10/24/24 Range/Units 19:18 Urine Color Yellow (Yellow) Urine Appearance Turbid H (Clear) Urine pH 8.0 (5.0-9.0) Ur Specific [place] 1.015 (1.001-1.035) Urine Protein 2+ H (Negative) mg/dL Urine Glucose (UA) Negative (Negative) mg/dL
[2024-10-25 14:00] VITALS: BP 122/59; PULSE 91; RESP 20; TEMP 36.3; O2SAT 96
[2024-10-25] MEDS: SUCRALFATE 1 GM TABLET PO (17:27)
[2024-10-25] MEDS: hydrOXYzine pamoate 25 MG CAPSULE PO (17:27)
[2024-10-25 20:00] VITALS: PULSE 70; RESP 20; O2SAT 96
[2024-10-25 21:32] VITALS: BP 95/46; PULSE 75; RESP 20; TEMP 36.6; O2SAT 95
[2024-10-25] MEDS: MONTELUKAST SODIUM 10 MG TABLET PO (21:34)
[2024-10-25] MEDS: SIMVASTATIN 20 MG TABLET PO (21:35)
[2024-10-25] MEDS: MIRTAZAPINE 15 MG TABLET PO (21:35)
[2024-10-26 05:37] VITALS: BP 116/50; PULSE 80; RESP 18; TEMP 36.2; O2SAT 98
[2024-10-26] MEDS: PIPERACILLN/TAZ 3.375GM/NS50ML 3.375 GM/50 ML BAG IVPB ×3 (05:59→16:59)
[2024-10-26] MEDS: SUCRALFATE 1 GM TABLET PO ×2 (06:00→15:29)
[2024-10-26] MEDS: LACTATED RINGERS 1,000 ML 75 ML IV CONT (06:49)
[2024-10-26] MEDS: ACIDOPHILUS/BULGARICUS CHEWABLE TABLET 1 TABLET PO (08:56)
[2024-10-26] MEDS: POTASSIUM CHLORIDE 10 MEQ ER TABLET PO ×2 (08:56→16:42)
[2024-10-26] MEDS: CHOLECALCIFEROL 1,000 UNITS TABLET 4000 UNITS PO (08:56)
[2024-10-26] MEDS: DOCUSATE SODIUM 100 MG CAPSULE PO ×2 (08:56→16:42)
[2024-10-26] MEDS: levETIRAcetam 250 MG TABLET 750 MG PO ×2 (08:57→21:31)
[2024-10-26] MEDS: PANTOPRAZOLE SOD SESQUIHYDRATE 20 MG TAB PO ×2 (08:57→21:31)
[2024-10-26] MEDS: THERAPEUTIC MULTIVITAMINS/MINERALS TAB (*BKC) 1 TABLET PO (08:57)
[2024-10-26] MEDS: hydrOXYzine pamoate 25 MG CAPSULE PO ×2 (08:57→16:42)
[2024-10-26] MEDS: MAGNESIUM OXIDE 400 MG TABLET PO (08:57)
[2024-10-26] MEDS: IRBESARTAN 75 MG TABLET PO (08:57)
--- NOTE | 2024-10-26 12:55 | WPDGIPROGNO ---
Progress Note: A&P Assessment and Plan (1) Perirectal abscess: Code(s): K61.1 - Rectal abscess Status: Acute Assessment and Plan: on iv abx, surgery on board barium enema with moderate amount of scattered colonic stool suggestive of constipation with no evident strictures/obstruction. probably colonoscopy as outpatient in several more weeks once acute process is resolved (2) Fecal impaction: Code(s): K56.41 - Fecal impaction Status: Acute (3) Constipation: Qualifiers: Constipation type: chronic idiopathic constipation Qualified Code(s): K59.04 - Chronic idiopathic constipation Code(s): K59.00 - Constipation, unspecified Status: Acute (4) Presence of IVC filter: Code(s): Z95.828 - Presence of other vascular implants and grafts Status: Chronic (5) Abnormal findings on imaging of biliary tract: Code(s): R93.2 - Abnormal findings on diagnostic imaging of liver and biliary tract Status: Acute Assessment and Plan: possible stones in bile duct but liver enzymes normal other than mild elevated AP even if stones found in MRCP probably I still would recommend to wait on ERCP since she has other issues and no indication of jaundice/cholestasis or pain from biliary dysfunction surgery on boar (6) Dilation of biliary tract: Code(s): K83.8 - Other specified diseases of biliary tract Status: Acute (7) Chronic anemia: Code(s): D64.9 - Anemia, unspecified Status: Chronic Assessment and Plan: probably multifactorial monitor (8) Dementia: Code(s): F03.90 - Unspecified dementia, unspecified severity, without behavioral disturbance, psychotic disturbance, mood disturbance, and anxiety Status: Chronic Subjective Date/time seen: 10/26/24 12:55 Interval history: no major changes, she is comfortable but confused as baseline Review of Systems Review of Systems: All systems reviewed & are unremarkable except as noted in HPI and below Exam Const: General: no acute distress Nutritional Appearance: average body habitus Orientation/consciousness: oriented to person HENMT: Head: normocephalic and atraumatic Eyes: General: appearance normal, both eyes and all related structures Neck: Neck: normal visual inspection Resp: Effort & Inspection: no respiratory distress Auscultation: clear to auscultation bilaterally Cardio: Rate: regular rate Rhythm: regular rhythm GI: Inspection: non-distended and scar (large midline scar with multiple incisional hernias, no bulges and nontende) GI Palp: Yes Soft to palpation, Yes Tenderness to palpation present (GI) (LLQ, mild), No Guarding due to palpation present (GI) and No Rebound tenderness present Auscultation: normal bowel sounds Urinary Catheter: Urinary Catheter: patent and draining (urine yellow) Skin: General skin exam: normal color Neuro: General: other (debilitated with contracted lower extremities and upper extremities) Motor exam (neuro): Other motor observations present (paralysis of the right side with slight movement of the left upper ext.) Extrem: General: no edema and other (contracted, limited exam) Psych: Insight: Limited insight present (Psych) Objective Data Vital Signs Vital Signs: Vital Signs - 24 hr 10/25/24 14:00 10/25/24 20:00 10/25/24 21:32 Temperature 97.4 F L 97.9 F Pulse Rate 91 70 75 Respiratory Rate 20 20 20 Blood Pressure 122/59 L 95/46 L Pulse Oximetry 96 96 95 Oxygen Delivery Room Air 10/26/24 05:37 Temperature 97.1 F L Pulse Rate 80 Respiratory Rate 18 Blood Pressure 116/50 L Pulse Oximetry 98 Oxygen Delivery Intake/Output Intake/Output: Intake & Output 10/23/24 10/24/24 10/25/24 10/26/24 23:59 23:59 23:59 23:59 Intake Total 1050 1200 1150 Output Total 750 1200 901 Balance 300 0 249 Meds/Results Medications: Active Medications Generic Name Dose Route Start Last Admin Trade Name Freq PRN Reason Stop Dose Admin Acetaminophen 1,000 mg 10/25/24 08:02 Acetaminophen 500 Mg Tablet PO Q6H PRN Pain 1-3 or fever Docusate Sodium 100 mg 10/25/24 09:00 10/26/24 08:56 Docusate Sodium 100 Mg Capsule PO 100 mg BID SONIA Administration Hydroxyzine Pamoate 25 mg 10/25/24 17:00 10/26/24 08:57 Hydroxyzine Pamoate 25 Mg Capsule PO 25 mg BID SONIA Administration Piperacillin/Tazobactam/Dextrose 3.375 gm in 50 mls @ 100 mls/hr 10/25/24 02:00 10/26/24 11:25 Zosyn 3.375 Gm/Ns 50 Ml IVPB Infused Q6HR SONIA Infusion Lactated Ringer's 1,000 mls @ 75 mls/hr 10/24/24 21:15 10/26/24 06:49 Lr - Lactated Ringers Iv IV CONT 75 mls/hr .[id number] SONIA Administration Irbesartan 75 mg 10/25/24 09:00 10/26/24 08:57 Irbesartan 75 Mg Tablet PO 75 mg DAILY SONIA Administration Lactobacillus Acidophilus 1 tablet 10/25/24 09:00 10/26/24 08:56 Acidophilus/Bulgaricus Chewable Tablet PO 1 tablet DAILY SONIA Administration Levetiracetam 750 mg 10/25/24 09:00 10/26/24 08:57 Levetiracetam 250 Mg Tablet PO 750 mg Q12HR SONIA Administration Magnesium Oxide 400 mg 10/25/24 09:00 10/26/24 08:57 Magnesium Oxide 400 Mg Tablet PO 400 mg DAILY SONIA Administration Mirtazapine 15 mg 10/25/24 21:00 10/25/24 21:35 Mirtazapine 15 Mg Tablet PO 15 mg HS SONIA Administration Montelukast Sodium 10 mg 10/25/24 21:00 10/25/24 21:34 Montelukast Sodium 10 Mg Tablet PO 10 mg HS SONIA Administration Multivitamins/Calcium 1 tablet 10/25/24 09:00 10/26/24 08:57 Therapeutic Multivitamins/Minerals Tab (*Bkc) PO 1 tablet DAILY SONIA Administration Oxycodone HCl 5 mg 10/25/24 08:02 Oxycodone Hcl (*Crx) 5 Mg Tab Ir PO Q4H PRN Pain Rated 7-10 Pantoprazole Sodium 20 mg 10/25/24 09:00 10/26/24 08:57 Pantoprazole Sod Sesquihydrate 20 Mg Tab PO 20 mg Q12HR SONIA Administration Potassium Chloride 10 meq 10/25/24 09:00 10/26/24 08:56 Potassium Chloride 10 Meq Er Tablet PO 10 meq BID SONIA Administration Simvastatin 20 mg 10/25/24 21:00 10/25/24 21:35 Simvastatin 20 Mg Tablet PO 20 mg HS SONIA Administration Sucralfate 1 gm 10/25/24 16:30 10/26/24 06:00 Sucralfate 1 Gm Tablet PO 1 gm BIDAC SONIA Administration Vitamin D 4,000 units 10/25/24 09:00 10/26/24 08:56 Cholecalciferol 1,000 Units Tablet PO 4,000 units DAILY SONIA Administration Radiology Results: ITS Impressions Abdomen/Pelvis CT 10/24/24 19:41 IMPRESSION: 1. No evidence of appendicitis, diverticulitis or intestinal obstruction. 2. Highly suggestive of abscess in the right pararectal area. 3. Markedly thickened rectal wall with distended colon by gases. Further evaluation of the rectum is advised. 4. Hypodensities in both kidneys which may indicate pyelonephritis. Dilated ureters are also noted. 5. Thickened wall of the urinary bladder which may indicate cystitis versus infiltrative process. Further evaluation advised. 6. Intrahepatic and extrahepatic biliary dilatation. 7. Cholelithiasis. 8. Hepatomegaly. Enema w/Water Soluble 10/25/24 14:02 IMPRESSION: 1. Moderate amount of scattered colonic stool suggestive of constipation with no evident strictures/obstruction.
[2024-10-26 14:00] VITALS: BP 106/46; PULSE 65; RESP 16; TEMP 36.4; O2SAT 100
--- NOTE | 2024-10-26 15:21 | P.PNIM_ITS ---
Progress Note: A&P Assessment and Plan (1) Hypertension: Qualifiers: Hypertension type: primary hypertension Qualified Code(s): I10 - Essential (primary) hypertension Code(s): I10 - Essential (primary) hypertension Status: Chronic (2) Perirectal abscess: Code(s): K61.1 - Rectal abscess Status: Acute (3) Bowel obstruction: Qualifiers: Intestinal obstruction type: fecal impaction Qualified Code(s): K56.41 - Fecal impaction Code(s): K56.609 - Unspecified intestinal obstruction, unspecified as to partial versus complete obstruction Status: Acute (4) Presence of IVC filter: Code(s): Z95.828 - Presence of other vascular implants and grafts Status: Chronic (5) Dementia: Code(s): F03.90 - Unspecified dementia, unspecified severity, without behavioral disturbance, psychotic disturbance, mood disturbance, and anxiety Status: Chronic (6) Seizure as late effect of cerebrovascular accident (CVA): Code(s): I69.398 - Other sequelae of cerebral infarction; R56.9 - Unspecified convulsions Status: Acute (7) Constipation: Qualifiers: Constipation type: chronic idiopathic constipation Qualified Code(s): K59.04 - Chronic idiopathic constipation Code(s): K59.00 - Constipation, unspecified Status: Acute Plan 64-year-old female with a past medical history of dementia, intellectual disability, anxiety and depression, CHF, coronary artery disease, DVT, ulcerative colitis, chronic kidney disease, neurogenic bladder with chronic indwelling Kemp catheter spinal stenosis, chronic contractures of bilateral lower extremities and prior small-bowel obstruction who presented to the ER via EMS from half-way for nausea and vomiting. Admitted for perirectal abscess with proctitis in patient with ulcerative colitis. started on Zosyn IV C diff PCR was collected in ed and negative - chronic Kemp catheter in place due to neurogenic bladder- kemp was changed in ED and ua was collected. - UA was suspicious for possible UTI and she was started on antibiotics - previous UA grew S the Pseudomonas infections but sensitive to most antibiotics. WBC normal, no fever- so suspect that her abnormal UA urine is more due to her chronic indwelling Kemp in less likely due to acute urinary tract infection. She is likely has asymptomatic bacteriuria with chronic colonization. Urine cultures are pending. Follow CT of the abdomen pelvis was performed which demonstrated possible right perirectal abscess with markedly thickened rectal wall and distended colon. CT also demonstrated thickened wall the bladder. . Blood cultures have been obtained and are pending- of note- BC were obtained after the 1st dose of Zosyn was administered. - surgery was consulted - GI was consulted # seizures 10/01/2024 (required IV Ativan). Loaded with Keppra which was continued Neurology was following. CT head was negative. 10/26 GI following barium enema with moderate amount of scattered colonic stool suggestive of constipation with no evident strictures/obstruction. probably colonoscopy as outpatient in several more weeks once acute process is resolved GI notes reviewed ' possible stones in bile duct but liver enzymes normal other than mild elevated AP even if stones found in MRCP probably I still would recommend to wait on ERCP since she has other issues and no indication of jaundice/cholestasis or pain from biliary dysfunction . Exam is benig. pt is eating ok- no nausea, no abd discomfort on exam -continue home antihypertensives, psychiatric medications and PPI therapy. Time Spent With Patient Time with patient: 25 - 35 minutes Subjective Date/time seen: 10/26/24 15:21 Interval history: pt is seen and examined. she is trying to eat but gets irritated easily. confused but her baseline. no acute concerns. GI/surgery following Review of Systems Review of Systems: All systems reviewed & are unremarkable except as noted in HPI and below Exam Const: General: comfortable; No no acute distress Resp: Effort & Inspection: normal respiratory effort Auscultation: clear to auscultation bilaterally Cardio: Rate: regular rate Rhythm: regular rhythm GI: Auscultation: normal bowel sounds Urinary Catheter: Urinary Catheter: patent and draining Objective Data Vital Signs Vital Signs: Vital Signs - 24 hr 10/25/24 20:00 10/25/24 21:32 10/26/24 05:37 Temperature 97.9 F 97.1 F L Pulse Rate 70 75 80 Respiratory Rate 20 20 18 Blood Pressure 95/46 L 116/50 L Pulse Oximetry 96 95 98 Oxygen Delivery Room Air 10/26/24 14:00 Temperature 97.5 F L Pulse Rate 65 Respiratory Rate 16 Blood Pressure 106/46 L Pulse Oximetry 100 Oxygen Delivery Intake/Output Intake/Output: Intake & Output 10/23/24 10/24/24 10/25/24 10/26/24 23:59 23:59 23:59 23:59 Intake Total 1050 1200 1390 Output Total 750 1200 901 Balance 300 0 489 Meds/Results Medications: Active Medications Generic Name Dose Route Start Last Admin Trade Name Freq PRN Reason Stop Dose Admin Acetaminophen 1,000 mg 10/25/24 08:02 Acetaminophen 500 Mg Tablet PO Q6H PRN Pain 1-3 or fever Docusate Sodium 100 mg 10/25/24 09:00 10/26/24 08:56 Docusate Sodium 100 Mg Capsule PO 100 mg BID SONIA Administration Hydroxyzine Pamoate 25 mg 10/25/24 17:00 10/26/24 08:57 Hydroxyzine Pamoate 25 Mg Capsule PO 25 mg BID SONIA Administration Piperacillin/Tazobactam/Dextrose 3.375 gm in 50 mls @ 100 mls/hr 10/25/24 02:00 10/26/24 11:25 Zosyn 3.375 Gm/Ns 50 Ml IVPB Infused Q6HR SONIA Infusion Lactated Ringer's 1,000 mls @ 75 mls/hr 10/24/24 21:15 10/26/24 06:49 Lr - Lactated Ringers Iv IV CONT 75 mls/hr .[id number] SONIA Administration Irbesartan 75 mg 10/25/24 09:00 10/26/24 08:57 Irbesartan 75 Mg Tablet PO 75 mg DAILY SONIA Administration Lactobacillus Acidophilus 1 tablet 10/25/24 09:00 10/26/24 08:56 Acidophilus/Bulgaricus Chewable Tablet PO 1 tablet DAILY SONIA Administration Levetiracetam 750 mg 10/25/24 09:00 10/26/24 08:57 Levetiracetam 250 Mg Tablet PO 750 mg Q12HR SONIA Administration Magnesium Oxide 400 mg 10/25/24 09:00 10/26/24 08:57 Magnesium Oxide 400 Mg Tablet PO 400 mg DAILY SONIA Administration Mirtazapine 15 mg 10/25/24 21:00 10/25/24 21:35 Mirtazapine 15 Mg Tablet PO 15 mg HS SONIA Administration Montelukast Sodium 10 mg 10/25/24 21:00 10/25/24 21:34 Montelukast Sodium 10 Mg Tablet PO 10 mg HS SONIA Administration Multivitamins/Calcium 1 tablet 10/25/24 09:00 10/26/24 08:57 Therapeutic Multivitamins/Minerals Tab (*Bkc) PO 1 tablet DAILY SONIA Administration Oxycodone HCl 5 mg 10/25/24 08:02 Oxycodone Hcl (*Crx) 5 Mg Tab Ir PO Q4H PRN Pain Rated 7-10 Pantoprazole Sodium 20 mg 10/25/24 09:00 10/26/24 08:57 Pantoprazole Sod Sesquihydrate 20 Mg Tab PO 20 mg Q12HR SONIA Administration Potassium Chloride 10 meq 10/25/24 09:00 10/26/24 08:56 Potassium Chloride 10 Meq Er Tablet PO 10 meq BID SONIA Administration Simvastatin 20 mg 10/25/24 21:00 10/25/24 21:35 Simvastatin 20 Mg Tablet PO 20 mg HS SONIA Administration Sucralfate 1 gm 10/25/24 16:30 10/26/24 06:00 Sucralfate 1 Gm Tablet PO 1 gm BIDAC SONIA Administration Vitamin D 4,000 units 10/25/24 09:00 10/26/24 08:56 Cholecalciferol 1,000 Units Tablet PO 4,000 units DAILY SONIA Administration Radiology Results: ITS Impressions Abdomen/Pelvis CT 10/24/24 19:41 IMPRESSION: 1. No evidence of appendicitis, diverticulitis or intestinal obstruction. 2. Highly suggestive of abscess in the right pararectal area. 3. Markedly thickened rectal wall with distended colon by gases. Further evaluation of the rectum is advised. 4. Hypodensities in both kidneys which may indicate pyelonephritis. Dilated ureters are also noted. 5. Thickened wall of the urinary bladder which may indicate cystitis versus infiltrative process. Further evaluation advised. 6. Intrahepatic and extrahepatic biliary dilatation. 7. Cholelithiasis. 8. Hepatomegaly. Enema w/Water Soluble 10/25/24 14:02 IMPRESSION: 1. Moderate amount of scattered colonic stool suggestive of constipation with no evident strictures/obstruction. Quality VTE Prophylaxis VTE prophylaxis: mechanical ordered (Patient has IVC filter in place. Pharmacologic prophylaxis not indicated due to patient's recurrent anemia.)
--- NOTE | 2024-10-26 16:08 | P.PNGS_ITS ---
Progress Note: A&P Assessment and Plan (1) Acute proctitis: Code(s): K62.89 - Other specified diseases of anus and rectum Status: Acute Assessment and Plan: * Continue IV antibiotics, abdominal exam benign, Hypaque enema showed no obstruction or stricture. Multiple bowel movements since yesterday. Okay to advance diet as tolerated. (2) Perirectal abscess: Code(s): K61.1 - Rectal abscess Status: Acute Assessment and Plan: * Asymptomatic and WBC count normal on admission. Repeat CBC today. Continue IV antibiotics and monitor (3) Cholelithiasis: Qualifiers: Cholelithiasis location: gallbladder and bile duct Cholecystitis presence: without cholecystitis Biliary obstruction: without biliary obstructi on Qualified Code(s): K80.70 - Calculus of gallbladder and bile duct without cholecystitis without obstruction Code(s): K80.20 - Calculus of gallbladder without cholecystitis without obstruction Status: Acute Assessment and Plan: * CT scan demonstrates cholelithiasis with intra and extrahepatic biliary dilatation, and possible common bile duct stones. GI consulted, MRCP pending. Likely a more chronic finding with no biliary obstruction. (4) Dilation of biliary tract: Code(s): K83.8 - Other specified diseases of biliary tract Status: Acute (5) Presence of IVC filter: Code(s): Z95.828 - Presence of other vascular implants and grafts Status: Chronic (6) Constipation: Qualifiers: Constipation type: chronic idiopathic constipation Qualified Code(s): K59.04 - Chronic idiopathic constipation Code(s): K59.00 - Constipation, unspecified Status: Acute (7) Chronic indwelling White catheter: Code(s): Z97.8 - Presence of other specified devices Status: Acute Plan I have discussed the patient's case and plan of care with Dr. Zheng. Subjective Subjective Date/Time Seen: 10/26/24 16:08 Patient reports: afebrile Interval history: Patient is a poor historian. She is refusing to answer questions for me today. She has done this in the past and has a history of being agitated and combative with staff. She is calm, but will not answer any of my questions. She has had multiple bowel movements since her Hypaque enema yesterday. Exam GI: Inspection: non-distended GI Palp: Yes Soft to palpation, Yes Tenderness to palpation present (GI) (Mild diffuse tenderness), No Guarding due to palpation present (GI) and No Rebound tenderness present Auscultation: normal bowel sounds Objective Data Vital Signs Vital Signs: Vital Signs - 24 hr 10/25/24 20:00 10/25/24 21:32 10/26/24 05:37 Temperature 97.9 F 97.1 F L Pulse Rate 70 75 80 Respiratory Rate 20 20 18 Blood Pressure 95/46 L 116/50 L Pulse Oximetry 96 95 98 Oxygen Delivery Room Air 10/26/24 14:00 Temperature 97.5 F L Pulse Rate 65 Respiratory Rate 16 Blood Pressure 106/46 L Pulse Oximetry 100 Oxygen Delivery Intake/Output Intake/Output: Intake & Output 10/23/24 10/24/24 10/25/24 10/26/24 23:59 23:59 23:59 23:59 Intake Total 1050 1200 1390 Output Total 750 1200 901 Balance 300 0 489 Meds/Results Medications: Active Medications Generic Name Dose Route Start Last Admin Trade Name Freq PRN Reason Stop Dose Admin Acetaminophen 1,000 mg 10/25/24 08:02 Acetaminophen 500 Mg Tablet PO Q6H PRN Pain 1-3 or fever Docusate Sodium 100 mg 10/25/24 09:00 10/26/24 08:56 Docusate Sodium 100 Mg Capsule PO 100 mg BID SONIA Administration Hydroxyzine Pamoate 25 mg 10/25/24 17:00 10/26/24 08:57 Hydroxyzine Pamoate 25 Mg Capsule PO 25 mg BID SONIA Administration Piperacillin/Tazobactam/Dextrose 3.375 gm in 50 mls @ 100 mls/hr 10/25/24 02 :00 10/26/24 11:25 Zosyn 3.375 Gm/Ns 50 Ml IVPB Infused Q6HR SONIA Infusion Lactated Ringer's 1,000 mls @ 75 mls/hr 10/24/24 21:15 10/26/24 06:49 Lr - Lactated Ringers Iv IV CONT 75 mls/hr .[id number] SONIA Administration Irbesartan 75 mg 10/25/24 09:00 10/26/24 08:57 Irbesartan 75 Mg Tablet PO 75 mg DAILY SONIA Administration Lactobacillus Acidophilus 1 tablet 10/25/24 09:00 10/26/24 08:56 Acidophilus/Bulgaricus Chewable Tablet PO 1 tablet DAILY SONIA Administration Levetiracetam 750 mg 10/25/24 09:00 10/26/24 08:57 Levetiracetam 250 Mg Tablet PO 750 mg Q12HR SONIA Administration Magnesium Oxide 400 mg 10/25/24 09:00 10/26/24 08:57 Magnesium Oxide 400 Mg Tablet PO 400 mg DAILY SONIA Administration Mirtazapine 15 mg 10/25/24 21:00 10/25/24 21:35 Mirtazapine 15 Mg Tablet PO 15 mg HS SONIA Administration Montelukast Sodium 10 mg 10/25/24 21:00 10/25/24 21:34 Montelukast Sodium 10 Mg Tablet PO 10 mg HS SONIA Administration Multivitamins/Calcium 1 tablet 10/25/24 09:00 10/26/24 08:57 Therapeutic Multivitamins/Minerals Tab (*Bkc) PO 1 tablet DAILY SONIA Administration Oxycodone HCl 5 mg 10/25/24 08:02 Oxycodone Hcl (*Crx) 5 Mg Tab Ir PO Q4H PRN Pain Rated 7-10 Pantoprazole Sodium 20 mg 10/25/24 09:00 10/26/24 08:57 Pantoprazole Sod Sesquihydrate 20 Mg Tab PO 20 mg Q12HR SONIA Administration Potassium Chloride 10 meq 10/25/24 09:00 10/26/24 08:56 Potassium Chloride 10 Meq Er Tablet PO 10 meq BID SONIA Administration Simvastatin 20 mg 10/25/24 21:00 10/25/24 21:35 Simvastatin 20 Mg Tablet PO 20 mg HS SONIA Administration Sucralfate 1 gm 10/25/24 16:30 10/26/24 15:29 Sucralfate 1 Gm Tablet PO 1 gm BIDAC SONIA Administration Vitamin D 4,000 units 10/25/24 09:00 10/26/24 08:56 Cholecalciferol 1,000 Units Tablet PO 4,000 units DAILY SONIA Administration Radiology Results: ITS Impressions Abdomen/Pelvis CT 10/24/24 19:41 IMPRESSION: 1. No evidence of appendicitis, diverticulitis or intestinal obstruction. 2. Highly suggestive of abscess in the right pararectal area. 3. Markedly thickened rectal wall with distended colon by gases. Further evaluation of the rectum is advised. 4. Hypodensities in both kidneys which may indicate pyelonephritis. Dilated ureters are also noted. 5. Thickened wall of the urinary bladder which may indicate cystitis versus infiltrative process. Further evaluation advised. 6. Intrahepatic and extrahepatic biliary dilatation. 7. Cholelithiasis. 8. Hepatomegaly. Enema w/Water Soluble 10/25/24 14:02 IMPRESSION: 1. Moderate amount of scattered colonic stool suggestive of constipation with no evident strictures/obstruction.
[2024-10-26 20:35] VITALS: BP 111/56; PULSE 77; RESP 20; TEMP 36.3; O2SAT 98
[2024-10-26] MEDS: SIMVASTATIN 20 MG TABLET PO (21:31)
[2024-10-26] MEDS: MONTELUKAST SODIUM 10 MG TABLET PO (21:31)
[2024-10-26] MEDS: MIRTAZAPINE 15 MG TABLET PO (21:31)
[2024-10-27] VITALS (9 sets, daily range): BP systolic 105–150; BP diastolic 49–90; PULSE 61–74; RESP 14–18; TEMP 35.6–36.8; O2SAT 98–100
[2024-10-27] MEDS: PIPERACILLN/TAZ 3.375GM/NS50ML 3.375 GM/50 ML BAG IVPB ×2 (00:16→05:45)
[2024-10-27] MEDS: LACTATED RINGERS 1,000 ML 75 ML IV CONT (00:16)
[2024-10-27 06:22] LABS: Hematocrit 22.7 % (37.0-47.0); Mean Corpuscular HGB Conc 30.4 g/dl (32-36); Mean Corpuscular Hemoglobin 30.1 pg (26-34); Mean Corpuscular Volume 99.1 fl (80-100); Mean Platelet Volume 9.9 fl (7.4-10.4); Platelet Count Result 154 k/mm3 (150-375); Red Blood Count 2.29 M/mm3 (4.2-5.4); Red Cell Distribution Width 14.6 % (11.5-14.5); White Blood Count 2.9 K/mm3 (4.5-10.0)
[2024-10-27 06:34] LABS: Hemoglobin 6.9 g/dL (12.0-15.0)
[2024-10-27] MEDS: SUCRALFATE 1 GM TABLET PO ×2 (06:51→16:19)
--- NOTE | 2024-10-27 07:45 | PM.PNGS ---
Progress Note: A&P Assessment and Plan (1) Acute proctitis: Code(s): K62.89 - Other specified diseases of anus and rectum Status: Acute Assessment and Plan: exam improved, having bowel function, continue IV antibiotics (2) Dilation of biliary tract: Code(s): K83.8 - Other specified diseases of biliary tract Status: Acute Assessment and Plan: likely incidental finding, await MRCP Subjective Subjective Date/Time Seen: 10/27/24 07:45 Interval history: no acute issues overnight, no abdominal pain this morning Review of Systems Review of Systems: All systems reviewed & are unremarkable except as noted in HPI and below Exam Const: General: cooperative, comfortable, no acute distress and ill appearing Resp: Auscultation: clear to auscultation bilaterally Cardio: Rate: regular rate Rhythm: regular rhythm GI: Inspection: normal to inspection and non-distended GI Palp: No abdominal tenderness and Yes Soft to palpation Objective Data Vital Signs Vital Signs: Vital Signs - 24 hr 10/26/24 14:00 10/26/24 20:00 10/26/24 20:35 Temperature 36.4 C L 36.3 C L Pulse Rate 65 77 Respiratory Rate 16 20 Blood Pressure 106/46 L 111/56 L Pulse Oximetry 100 98 Oxygen Delivery Room Air 10/27/24 00:51 10/27/24 04:50 Temperature 36.8 C Pulse Rate 61 Respiratory Rate 18 Blood Pressure 105/49 L Pulse Oximetry 98 98 Oxygen Delivery Autopap Intake/Output Intake/Output: Intake & Output 10/24/24 10/25/24 10/26/24 10/27/24 23:59 23:59 23:59 23:59 Intake Total 1050 1200 1680 1250 Output Total 750 8743 821 3642 Balance 300 0 779 50 Meds/Results Medications: Active Medications Generic Name Dose Route Start Last Admin Trade Name Freq PRN Reason Stop Dose Admin Acetaminophen 1,000 mg 10/25/24 08:02 Acetaminophen 500 Mg Tablet PO Q6H PRN Pain 1-3 or fever Docusate Sodium 100 mg 10/25/24 09:00 10/26/24 16:42 Docusate Sodium 100 Mg Capsule PO 100 mg BID SONIA Administration Hydroxyzine Pamoate 25 mg 10/25/24 17:00 10/26/24 16:42 Hydroxyzine Pamoate 25 Mg Capsule PO 25 mg BID SONIA Administration Piperacillin/Tazobactam/Dextrose 3.375 gm in 50 mls @ 100 mls/hr 10/25/24 02:00 10/27/24 06:15 Zosyn 3.375 Gm/Ns 50 Ml IVPB Infused Q6HR SONIA Infusion Lactated Ringer's 1,000 mls @ 75 mls/hr 10/24/24 21:15 10/27/24 00:16 Lr - Lactated Ringers Iv IV CONT 75 mls/hr .[id number] SONIA Administration Sodium Chloride 250 mls @ 30 mls/hr 10/27/24 06:38 Normal Saline Iv IV CONT 10/27/24 14:57 .[id number] STA Irbesartan 75 mg 10/25/24 09:00 10/26/24 08:57 Irbesartan 75 Mg Tablet PO 75 mg DAILY SONIA Administration Lactobacillus Acidophilus 1 tablet 10/25/24 09:00 10/26/24 08:56 Acidophilus/Bulgaricus Chewable Tablet PO 1 tablet DAILY SONIA Administration Levetiracetam 750 mg 10/25/24 09:00 10/26/24 21:31 Levetiracetam 250 Mg Tablet PO 750 mg Q12HR SONIA Administration Magnesium Oxide 400 mg 10/25/24 09:00 10/26/24 08:57 Magnesium Oxide 400 Mg Tablet PO 400 mg DAILY SONIA Administration Mirtazapine 15 mg 10/25/24 21:00 10/26/24 21:31 Mirtazapine 15 Mg Tablet PO 15 mg HS SONIA Administration Montelukast Sodium 10 mg 10/25/24 21:00 10/26/24 21:31 Montelukast Sodium 10 Mg Tablet PO 10 mg HS SONIA Administration Multivitamins/Calcium 1 tablet 10/25/24 09:00 10/26/24 08:57 Therapeutic Multivitamins/Minerals Tab (*Bkc) PO 1 tablet DAILY SONIA Administration Oxycodone HCl 5 mg 10/25/24 08:02 Oxycodone Hcl (*Crx) 5 Mg Tab Ir PO Q4H PRN Pain Rated 7-10 Pantoprazole Sodium 20 mg 10/25/24 09:00 10/26/24 21:31 Pantoprazole Sod Sesquihydrate 20 Mg Tab PO 20 mg Q12HR SONIA Administration Potassium Chloride 10 meq 10/25/24 09:00 10/26/24 16:42 Potassium Chloride 10 Meq Er Tablet PO 10 meq BID SONIA Administration Simvastatin 20 mg 10/25/24 21:00 10/26/24 21:31 Simvastatin 20 Mg Tablet PO 20 mg HS SONIA Administration Sucralfate 1 gm 10/25/24 16:30 10/27/24 06:51 Sucralfate 1 Gm Tablet PO 1 gm BIDAC SONIA Administration Vitamin D 4,000 units 10/25/24 09:00 10/26/24 08:56 Cholecalciferol 1,000 Units Tablet PO 4,000 units DAILY SONIA Administration Radiology Results: ITS Impressions Abdomen/Pelvis CT 10/24/24 19:41 IMPRESSION: 1. No evidence of appendicitis, diverticulitis or intestinal obstruction. 2. Highly suggestive of abscess in the right pararectal area. 3. Markedly thickened rectal wall with distended colon by gases. Further evaluation of the rectum is advised. 4. Hypodensities in both kidneys which may indicate pyelonephritis. Dilated ureters are also noted. 5. Thickened wall of the urinary bladder which may indicate cystitis versus infiltrative process. Further evaluation advised. 6. Intrahepatic and extrahepatic biliary dilatation. 7. Cholelithiasis. 8. Hepatomegaly. Enema w/Water Soluble 10/25/24 14:02 IMPRESSION: 1. Moderate amount of scattered colonic stool suggestive of constipation with no evident strictures/obstruction. Labs Labs: Laboratory Results - last 24 hr 10/27/24 10/27/24 05:20 07:06 WBC 2.9 L RBC 2.29 L Hgb 6.9 L* Hct 22.7 L MCV 99.1 MCH 30.1 MCHC 30.4 L RDW 14.6 H Plt Count 154 MPV 9.9 Crossmatch See Detail
[2024-10-27] MEDS: SODIUM CHLORIDE 0.9% IV 250 ML 30 ML IV CONT (09:13)
[2024-10-27] MEDS: PANTOPRAZOLE SOD SESQUIHYDRATE 20 MG TAB PO ×2 (09:42→20:57)
[2024-10-27] MEDS: levETIRAcetam 250 MG TABLET 750 MG PO ×2 (09:42→20:57)
[2024-10-27] MEDS: MAGNESIUM OXIDE 400 MG TABLET PO (09:42)
[2024-10-27] MEDS: THERAPEUTIC MULTIVITAMINS/MINERALS TAB (*BKC) 1 TABLET PO (09:42)
[2024-10-27] MEDS: DOCUSATE SODIUM 100 MG CAPSULE PO (09:42)
[2024-10-27] MEDS: hydrOXYzine pamoate 25 MG CAPSULE PO ×2 (09:42→16:19)
[2024-10-27] MEDS: CHOLECALCIFEROL 1,000 UNITS TABLET 4000 UNITS PO (09:43)
[2024-10-27] MEDS: ACIDOPHILUS/BULGARICUS CHEWABLE TABLET 1 TABLET PO (09:43)
[2024-10-27] MEDS: IRBESARTAN 75 MG TABLET PO (09:43)
[2024-10-27 11:02] LABS: Potassium 3.6 mmol/L (3.4-5.0)
--- NOTE | 2024-10-27 12:51 | P.PNIM_ITS ---
Progress Note: A&P Assessment and Plan (1) Hypertension: Qualifiers: Hypertension type: primary hypertension Qualified Code(s): I10 - Essential (primary) hypertension Code(s): I10 - Essential (primary) hypertension Status: Chronic (2) Perirectal abscess: Code(s): K61.1 - Rectal abscess Status: Acute (3) Bowel obstruction: Qualifiers: Intestinal obstruction type: fecal impaction Qualified Code(s): K56.41 - Fecal impaction Code(s): K56.609 - Unspecified intestinal obstruction, unspecified as to partial versus complete obstruction Status: Acute (4) Presence of IVC filter: Code(s): Z95.828 - Presence of other vascular implants and grafts Status: Chronic (5) Dementia: Code(s): F03.90 - Unspecified dementia, unspecified severity, without behavioral disturbance, psychotic disturbance, mood disturbance, and anxiety Status: Chronic (6) Seizure as late effect of cerebrovascular accident (CVA): Code(s): I69.398 - Other sequelae of cerebral infarction; R56.9 - Unspecified convulsions Status: Acute (7) Constipation: Qualifiers: Constipation type: chronic idiopathic constipation Qualified Code(s): K59.04 - Chronic idiopathic constipation Code(s): K59.00 - Constipation, unspecified Status: Acute Plan 64-year-old female with a past medical history of dementia, intellectual disability, anxiety and depression, CHF, coronary artery disease, DVT, ulcerative colitis, chronic kidney disease, neurogenic bladder with chronic indwelling Kemp catheter spinal stenosis, chronic contractures of bilateral lower extremities and prior small-bowel obstruction who presented to the ER via EMS from alf for nausea and vomiting. Admitted for perirectal abscess with proctitis in patient with ulcerative colitis. started on Zosyn IV C diff PCR was collected in ed and negative. Chronic Kemp catheter in place due to neurogenic bladder- kemp was changed in ED and ua was collected. - UA was suspicious for possible UTI and she was started on empiric antibiotics. - previous UA grew S the Pseudomonas infections but sensitive to most antibiotics. WBC normal, no fever- so suspect that her abnormal UA urine is more due to her chronic indwelling Kemp in less likely due to acute urinary tract infection. She is likely has asymptomatic bacteriuria with chronic colonization. Urine cultures are pending. Follow CT of the abdomen pelvis was performed which demonstrated possible right perirectal abscess with markedly thickened rectal wall and distended colon. CT also demonstrated thickened wall the bladder. . Blood cultures have been obtained and are pending- of note- BC were obtained after the 1st dose of Zosyn was administered. - surgery was consulted - GI was consulted seizures 10/01/2024 (required IV Ativan). Loaded with Keppra which was continued Neurology was following. CT head was negative. 10/26 GI following barium enema with moderate amount of scattered colonic stool suggestive of constipation with no evident strictures/obstruction. probably colonoscopy as outpatient in several more weeks once acute process is resolved GI notes reviewed ' possible stones in bile duct but liver enzymes normal other than mild elevated AP even if stones found in MRCP probably I still would recommend to wait on ERCP since she has other issues and no indication of jaundice/cholestasis or pain from biliary dysfunction . Exam is benig. pt is eating ok- no nausea, no abd discomfort on exam 10/27 MRCP 1. Mild intra and extra hepatic biliary ductal dilation with both cholelithiasis and choledocholithiasis which does not appear currently obstructing. 2. Very small bilateral posterior layering pleural effusions. 3. Mild bilateral hydronephrosis. s/p 1 unit of PRBC for hgb 6.9/Hct 22.7, improved to 8.7/27.8 Other medical conditions stable -continue home antihypertensives, psychiatric medications and PPI therapy. Time Spent With Patient Time: 58 minutes Subjective Date/time seen: 10/27/24 12:51 Interval history: pt is seen and examined. Said she's upset today but otherwise no complaints except the pad under her is wrinkled. Confused but her baseline. Blood count improved after 1 unit of blood. GI/surgery following and ok for outpatient follow up MRCP today showed nonobstructing stones. Planning outpatient GI followup Review of Systems Review of Systems: All systems reviewed & are unremarkable except as noted in HPI and below Exam Const: General: comfortable; No no acute distress Resp: Effort & Inspection: normal respiratory effort Auscultation: clear to auscultation bilaterally Cardio: Rate: regular rate Rhythm: regular rhythm GI: Auscultation: normal bowel sounds Urinary Catheter: Urinary Catheter: patent and draining Objective Data Vital Signs Vital Signs: Vital Signs - 24 hr 10/26/24 14:00 10/26/24 20:00 10/26/24 20:35 Temperature 97.5 F L 97.4 F L Pulse Rate 65 77 Respiratory Rate 16 20 Blood Pressure 106/46 L 111/56 L Pulse Oximetry 100 98 Oxygen Delivery Room Air 10/27/24 00:51 10/27/24 04:50 10/27/24 08:00 Temperature 98.2 F Pulse Rate 61 Respiratory Rate 18 Blood Pressure 105/49 L Pulse Oximetry 98 98 Oxygen Delivery Autopap Room Air 10/27/24 08:56 10/27/24 09:17 10/27/24 10:17 Temperature 97.0 F L 96.5 F L 96.7 F L Pulse Rate 65 70 74 Respiratory Rate 16 15 14 Blood Pressure 112/56 L 108/55 L 111/57 L Pulse Oximetry 100 98 99 Oxygen Delivery 10/27/24 11:17 10/27/24 11:38 Temperature 97.3 F L 97.1 F L Pulse Rate 69 68 Respiratory Rate 16 16 Blood Pressure 135/77 150/90 H Pulse Oximetry 99 98 Oxygen Delivery Intake/Output Intake/Output: Intake & Output 10/24/24 10/25/24 10/26/24 10/27/24 23:59 23:59 23:59 23:59 Intake Total 1050 1200 1680 1600 Output Total 750 2667 788 8249 Balance 300 0 779 -100 Meds/Results Medications: Active Medications Generic Name Dose Route Start Last Admin Trade Name Freq PRN Reason Stop Dose Admin Acetaminophen 1,000 mg 10/25/24 08:02 Acetaminophen 500 Mg Tablet PO Q6H PRN Pain 1-3 or fever Amoxicillin/Clavulanate Potassium 1 tablet 10/27/24 11:45 Amoxicillin/Clavulanate K 875-125 Mg Tab PO 11/03/24 21:01 Q12HR SONIA Docusate Sodium 100 mg 10/25/24 09:00 10/27/24 09:42 Docusate Sodium 100 Mg Capsule PO 100 mg BID SONIA Administration Hydroxyzine Pamoate 25 mg 10/25/24 17:00 10/27/24 09:42 Hydroxyzine Pamoate 25 Mg Capsule PO 25 mg BID SONIA Administration Lactated Ringer's 1,000 mls @ 75 mls/hr 10/24/24 21:15 10/27/24 00:16 Lr - Lactated Ringers Iv IV CONT 75 mls/hr .[id number] SONIA Administration Sodium Chloride 250 mls @ 30 mls/hr 10/27/24 06:38 10/27/24 09:13 Normal Saline Iv IV CONT 10/27/24 14:57 30 mls/hr .[id number] STA Administration Irbesartan 75 mg 10/25/24 09:00 10/27/24 09:43 Irbesartan 75 Mg Tablet PO 75 mg DAILY SONIA Administration Lactobacillus Acidophilus 1 tablet 10/25/24 09:00 10/27/24 09:43 Acidophilus/Bulgaricus Chewable Tablet PO 1 tablet DAILY SONIA Administration Levetiracetam 750 mg 10/25/24 09:00 10/27/24 09:42 Levetiracetam 250 Mg Tablet PO 750 mg Q12HR SONIA Administration Magnesium Oxide 400 mg 10/25/24 09:00 10/27/24 09:42 Magnesium Oxide 400 Mg Tablet PO 400 mg DAILY SONIA Administration Mirtazapine 15 mg 10/25/24 21:00 10/26/24 21:31 Mirtazapine 15 Mg Tablet PO 15 mg HS SONIA Administration Montelukast Sodium 10 mg 10/25/24 21:00 10/26/24 21:31 Montelukast Sodium 10 Mg Tablet PO 10 mg HS SONIA Administration Multivitamins/Calcium 1 tablet 10/25/24 09:00 10/27/24 09:42 Therapeutic Multivitamins/Minerals Tab (*Bkc) PO 1 tablet DAILY SONIA Administration Oxycodone HCl 5 mg 10/25/24 08:02 Oxycodone Hcl (*Crx) 5 Mg Tab Ir PO Q4H PRN Pain Rated 7-10 Pantoprazole Sodium 20 mg 10/25/24 09:00 10/27/24 09:42 Pantoprazole Sod Sesquihydrate 20 Mg Tab PO 20 mg Q12HR SONIA Administration Potassium Chloride 10 meq 10/25/24 09:00 10/27/24 11:20 Potassium Chloride 10 Meq Er Tablet PO Not Given BID SONIA Simvastatin 20 mg 10/25/24 21:00 10/26/24 21:31 Simvastatin 20 Mg Tablet PO 20 mg HS SONIA Administration Sucralfate 1 gm 10/25/24 16:30 10/27/24 06:51 Sucralfate 1 Gm Tablet PO 1 gm BIDAC SONIA Administration Vitamin D 4,000 units 10/25/24 09:00 10/27/24 09:43 Cholecalciferol 1,000 Units Tablet PO 4,000 units DAILY SONIA Administration Radiology Results: ITS Impressions Abdomen/Pelvis CT 10/24/24 19:41 IMPRESSION: 1. No evidence of appendicitis, diverticulitis or intestinal obstruction. 2. Highly suggestive of abscess in the right pararectal area. 3. Markedly thickened rectal wall with distended colon by gases. Further evaluation of the rectum is advised. 4. Hypodensities in both kidneys which may indicate pyelonephritis. Dilated ureters are also noted. 5. Thickened wall of the urinary bladder which may indicate cystitis versus infiltrative process. Further evaluation advised. 6. Intrahepatic and extrahepatic biliary dilatation. 7. Cholelithiasis. 8. Hepatomegaly. Enema w/Water Soluble 10/25/24 14:02 IMPRESSION: 1. Moderate amount of scattered colonic stool suggestive of constipation with no evident strictures/obstruction. 10/27/2024 MRCP 1. Mild intra and extra hepatic biliary ductal dilation with both cholelithiasis and choledocholithiasis which does not appear currently obstructing. 2. Very small bilateral posterior layering pleural effusions. 3. Mild bilateral hydronephrosis. Labs Labs: Laboratory Results - last 24 hr 10/27/24 10/27/24 05:20 07:06 WBC 2.9 L RBC 2.29 L Hgb 6.9 L* Hct 22.7 L MCV 99.1 MCH 30.1 MCHC 30.4 L RDW 14.6 H Plt Count 154 MPV 9.9 Potassium 3.6 Blood Type O Positive Antibody Screen Negative Crossmatch See Detail Quality VTE Prophylaxis VTE prophylaxis: mechanical ordered (Patient has IVC filter in place. Pharmacologic prophylaxis not indicated due to patient's recurrent anemia.) Hospitalist [facility] Advance Care Plan I have confirmed that the patient's Advanced Care Plan is present, code status is documented, or surrogate decision maker is listed in patient medical record.: Yes Medication Reconciliation I have utilized all available resources to obtain, update and review the patients current medications (includes all prescriptions, OTC, herbals, cannabis, and nutritional supplements).: Yes
[2024-10-27] MEDS: AMOXICILLIN/CLAVULANATE K 875-125 MG TAB 1 TABLET PO ×2 (14:19→20:57)
[2024-10-27 14:23] LABS: Hematocrit 27.8 % (37.0-47.0); Hemoglobin 8.7 g/dL (12.0-15.0)
[2024-10-27] MEDS: POTASSIUM CHLORIDE 10 MEQ ER TABLET PO (16:19)
--- NOTE | 2024-10-27 16:56 | WPDGIPROGNO ---
Progress Note: A&P Assessment and Plan (1) Perirectal abscess: Code(s): K61.1 - Rectal abscess Status: Acute Assessment and Plan: on iv abx, surgery on board barium enema with moderate amount of scattered colonic stool suggestive of constipation with no evident strictures/obstruction. probably colonoscopy as outpatient in several more weeks once acute process is resolved (2) Cholelithiasis with choledocholithiasis: Code(s): K80.70 - Calculus of gallbladder and bile duct without cholecystitis without obstruction Status: Acute Assessment and Plan: no abdominal pain and normal liver enzymes, only small size 2-3 mm stone in bile duct probably chronic finding, given other issues and no indication of jaundice/cholestasis or pain from biliary dysfunction I recommend to address this problem at another time for which she can follow as outpatient (3) Fecal impaction: Code(s): K56.41 - Fecal impaction Status: Acute (4) Constipation: Qualifiers: Constipation type: chronic idiopathic constipation Qualified Code(s): K59.04 - Chronic idiopathic constipation Code(s): K59.00 - Constipation, unspecified Status: Acute (5) Presence of IVC filter: Code(s): Z95.828 - Presence of other vascular implants and grafts Status: Chronic (6) Dilation of biliary tract: Code(s): K83.8 - Other specified diseases of biliary tract Status: Acute (7) Chronic anemia: Code(s): D64.9 - Anemia, unspecified Status: Chronic Assessment and Plan: probably multifactorial monitor (8) Dementia: Code(s): F03.90 - Unspecified dementia, unspecified severity, without behavioral disturbance, psychotic disturbance, mood disturbance, and anxiety Status: Chronic Subjective Date/time seen: 10/27/24 16:56 Interval history: no changes Review of Systems Review of Systems: All systems reviewed & are unremarkable except as noted in HPI and below Exam Const: General: cooperative, comfortable, no acute distress and ill appearing HENMT: Face/Nose/Sinus: Normal nares present Eyes: Sclera: sclerae normal Neck: Neck: supple Resp: Auscultation: clear to auscultation bilaterally Cardio: Rate: regular rate Rhythm: regular rhythm GI: Inspection: normal to inspection and non-distended GI Palp: No abdominal tenderness and Yes Soft to palpation Skin: General skin exam: normal color Extrem: General: normal to inspection Objective Data Vital Signs Vital Signs: Vital Signs - 24 hr 10/26/24 20:00 10/26/24 20:35 10/27/24 00:51 Temperature 97.4 F L Pulse Rate 77 Respiratory Rate 20 Blood Pressure 111/56 L Pulse Oximetry 98 98 Oxygen Delivery Room Air Autopap 10/27/24 04:50 10/27/24 08:00 10/27/24 08:56 Temperature 98.2 F 97.0 F L Pulse Rate 61 65 Respiratory Rate 18 16 Blood Pressure 105/49 L 112/56 L Pulse Oximetry 98 100 Oxygen Delivery Room Air 10/27/24 09:17 10/27/24 10:17 10/27/24 11:17 Temperature 96.5 F L 96.7 F L 97.3 F L Pulse Rate 70 74 69 Respiratory Rate 15 14 16 Blood Pressure 108/55 L 111/57 L 135/77 Pulse Oximetry 98 99 99 Oxygen Delivery 10/27/24 11:38 10/27/24 14:00 Temperature 97.1 F L 96.1 F L Pulse Rate 68 71 Respiratory Rate 16 18 Blood Pressure 150/90 H 121/54 L Pulse Oximetry 98 98 Oxygen Delivery Intake/Output Intake/Output: Intake & Output 10/24/24 10/25/24 10/26/24 10/27/24 23:59 23:59 23:59 23:59 Intake Total 1050 1200 1680 1600 Output Total 750 4691 936 1776 Balance 300 0 779 -100 Meds/Results Medications: Active Medications Generic Name Dose Route Start Last Admin Trade Name Freq PRN Reason Stop Dose Admin Acetaminophen 1,000 mg 10/25/24 08:02 Acetaminophen 500 Mg Tablet PO Q6H PRN Pain 1-3 or fever Amoxicillin/Clavulanate Potassium 1 tablet 10/27/24 11:45 10/27/24 14:19 Amoxicillin/Clavulanate K 875-125 Mg Tab PO 11/03/24 21:01 1 tablet Q12HR SONIA Administration Docusate Sodium 100 mg 10/25/24 09:00 10/27/24 16:14 Docusate Sodium 100 Mg Capsule PO Not Given BID SONIA Hydroxyzine Pamoate 25 mg 10/25/24 17:00 10/27/24 16:19 Hydroxyzine Pamoate 25 Mg Capsule PO 25 mg BID SONIA Administration Irbesartan 75 mg 10/25/24 09:00 10/27/24 09:43 Irbesartan 75 Mg Tablet PO 75 mg DAILY SONIA Administration Lactobacillus Acidophilus 1 tablet 10/25/24 09:00 10/27/24 09:43 Acidophilus/Bulgaricus Chewable Tablet PO 1 tablet DAILY SONIA Administration Levetiracetam 750 mg 10/25/24 09:00 10/27/24 09:42 Levetiracetam 250 Mg Tablet PO 750 mg Q12HR SONIA Administration Magnesium Oxide 400 mg 10/25/24 09:00 10/27/24 09:42 Magnesium Oxide 400 Mg Tablet PO 400 mg DAILY SONIA Administration Mirtazapine 15 mg 10/25/24 21:00 10/26/24 21:31 Mirtazapine 15 Mg Tablet PO 15 mg HS SONIA Administration Montelukast Sodium 10 mg 10/25/24 21:00 10/26/24 21:31 Montelukast Sodium 10 Mg Tablet PO 10 mg HS SONIA Administration Multivitamins/Calcium 1 tablet 10/25/24 09:00 10/27/24 09:42 Therapeutic Multivitamins/Minerals Tab (*Bkc) PO 1 tablet DAILY SONIA Administration Oxycodone HCl 5 mg 10/25/24 08:02 Oxycodone Hcl (*Crx) 5 Mg Tab Ir PO Q4H PRN Pain Rated 7-10 Pantoprazole Sodium 20 mg 10/25/24 09:00 10/27/24 09:42 Pantoprazole Sod Sesquihydrate 20 Mg Tab PO 20 mg Q12HR SONIA Administration Potassium Chloride 10 meq 10/25/24 09:00 10/27/24 16:19 Potassium Chloride 10 Meq Er Tablet PO 10 meq BID SONIA Administration Simvastatin 20 mg 10/25/24 21:00 10/26/24 21:31 Simvastatin 20 Mg Tablet PO 20 mg HS SONIA Administration Sucralfate 1 gm 10/25/24 16:30 10/27/24 16:19 Sucralfate 1 Gm Tablet PO 1 gm BIDAC SONIA Administration Vitamin D 4,000 units 10/25/24 09:00 10/27/24 09:43 Cholecalciferol 1,000 Units Tablet PO 4,000 units DAILY SONIA Administration Radiology Results: ITS Impressions Abdomen/Pelvis CT 10/24/24 19:41 IMPRESSION: 1. No evidence of appendicitis, diverticulitis or intestinal obstruction. 2. Highly suggestive of abscess in the right pararectal area. 3. Markedly thickened rectal wall with distended colon by gases. Further evaluation of the rectum is advised. 4. Hypodensities in both kidneys which may indicate pyelonephritis. Dilated ureters are also noted. 5. Thickened wall of the urinary bladder which may indicate cystitis versus infiltrative process. Further evaluation advised. 6. Intrahepatic and extrahepatic biliary dilatation. 7. Cholelithiasis. 8. Hepatomegaly. Enema w/Water Soluble 10/25/24 14:02 IMPRESSION: 1. Moderate amount of scattered colonic stool suggestive of constipation with no evident strictures/obstruction. MRCP 10/27/24 14:28 IMPRESSION: 1. Mild intra and extra hepatic biliary ductal dilation with both cholelithiasis and choledocholithiasis which does not appear currently obstructing. 2. Very small bilateral posterior layering pleural effusions. 3. Mild bilateral hydronephrosis. Labs Labs: Laboratory Results - last 24 hr 10/27/24 10/27/24 10/27/24 05:20 07:06 13:37 WBC 2.9 L RBC 2.29 L Hgb 6.9 L* 8.7 L Hct 22.7 L 27.8 L MCV 99.1 MCH 30.1 MCHC 30.4 L RDW 14.6 H Plt Count 154 MPV 9.9 Potassium 3.6 Blood Type O Positive Antibody Screen Negative Crossmatch See Detail
[2024-10-27] MEDS: MIRTAZAPINE 15 MG TABLET PO (20:57)
[2024-10-27] MEDS: SIMVASTATIN 20 MG TABLET PO (20:57)
[2024-10-27] MEDS: MONTELUKAST SODIUM 10 MG TABLET PO (20:57)
[2024-10-28] MEDS: SUCRALFATE 1 GM TABLET PO ×2 (06:24→16:15)
[2024-10-28 06:40] VITALS: RESP 20; TEMP 36.8
--- NOTE | 2024-10-28 09:00 | PM.PNGS ---
Progress Note: A&P Assessment and Plan (1) Cholelithiasis with choledocholithiasis: Code(s): K80.70 - Calculus of gallbladder and bile duct without cholecystitis without obstruction Status: Acute Assessment and Plan: Discussed MRCP findings of choledocholithiasis and cholelithiasis with the patient. Will keep her NPO until GI has chance to decide on ERCP. Discussed that she will be needing her gallbladder removed. Explained the procedure briefly. Subjective Subjective Date/Time Seen: 10/28/24 09:00 Patient reports: no new complaints, pain is less and afebrile Review of Systems Review of Systems: All systems reviewed & are unremarkable except as noted in HPI and below (HPI) Objective Data Vital Signs Vital Signs: Vital Signs - 24 hr 10/27/24 09:17 10/27/24 10:17 10/27/24 11:17 Temperature 35.8 C L 35.9 C L 36.3 C L Pulse Rate 70 74 69 Respiratory Rate 15 14 16 Blood Pressure 108/55 L 111/57 L 135/77 Pulse Oximetry 98 99 99 Oxygen Delivery 10/27/24 11:38 10/27/24 14:00 10/27/24 20:00 Temperature 36.2 C L 35.6 C L Pulse Rate 68 71 Respiratory Rate 16 18 Blood Pressure 150/90 H 121/54 L Pulse Oximetry 98 98 Oxygen Delivery Room Air 10/27/24 20:45 10/28/24 06:40 10/28/24 08:00 Temperature 36.3 C L 36.8 C Pulse Rate 71 Respiratory Rate 18 20 Blood Pressure 117/66 Pulse Oximetry 98 Oxygen Delivery Room Air Intake/Output Intake/Output: Intake & Output 10/25/24 10/26/24 10/27/24 10/28/24 23:59 23:59 23:59 23:59 Intake Total 1200 1680 1840 200 Output Total 4378 202 5674 2250 Balance 0 012 -210 205 Meds/Results Medications: Active Medications Generic Name Dose Route Start Last Admin Trade Name Freq PRN Reason Stop Dose Admin Acetaminophen 1,000 mg 10/25/24 08:02 Acetaminophen 500 Mg Tablet PO Q6H PRN Pain 1-3 or fever Amoxicillin/Clavulanate Potassium 1 tablet 10/27/24 11:45 10/27/24 20:57 Amoxicillin/Clavulanate K 875-125 Mg Tab PO 11/03/24 21:01 1 tablet Q12HR SONIA Administration Docusate Sodium 100 mg 10/25/24 09:00 10/27/24 16:14 Docusate Sodium 100 Mg Capsule PO Not Given BID SONIA Hydroxyzine Pamoate 25 mg 10/25/24 17:00 10/27/24 16:19 Hydroxyzine Pamoate 25 Mg Capsule PO 25 mg BID SONIA Administration Irbesartan 75 mg 10/25/24 09:00 10/27/24 09:43 Irbesartan 75 Mg Tablet PO 75 mg DAILY SONIA Administration Lactobacillus Acidophilus 1 tablet 10/25/24 09:00 10/27/24 09:43 Acidophilus/Bulgaricus Chewable Tablet PO 1 tablet DAILY SONIA Administration Levetiracetam 750 mg 10/25/24 09:00 10/27/24 20:57 Levetiracetam 250 Mg Tablet PO 750 mg Q12HR SONIA Administration Magnesium Oxide 400 mg 10/25/24 09:00 10/27/24 09:42 Magnesium Oxide 400 Mg Tablet PO 400 mg DAILY SONIA Administration Mirtazapine 15 mg 10/25/24 21:00 10/27/24 20:57 Mirtazapine 15 Mg Tablet PO 15 mg HS SONIA Administration Montelukast Sodium 10 mg 10/25/24 21:00 10/27/24 20:57 Montelukast Sodium 10 Mg Tablet PO 10 mg HS SONIA Administration Multivitamins/Calcium 1 tablet 10/25/24 09:00 10/27/24 09:42 Therapeutic Multivitamins/Minerals Tab (*Bkc) PO 1 tablet DAILY SONIA Administration Oxycodone HCl 5 mg 10/25/24 08:02 Oxycodone Hcl (*Crx) 5 Mg Tab Ir PO Q4H PRN Pain Rated 7-10 Pantoprazole Sodium 20 mg 10/25/24 09:00 10/27/24 20:57 Pantoprazole Sod Sesquihydrate 20 Mg Tab PO 20 mg Q12HR SONIA Administration Potassium Chloride 10 meq 10/25/24 09:00 10/27/24 16:19 Potassium Chloride 10 Meq Er Tablet PO 10 meq BID SONIA Administration Simvastatin 20 mg 10/25/24 21:00 10/27/24 20:57 Simvastatin 20 Mg Tablet PO 20 mg HS SONIA Administration Sucralfate 1 gm 10/25/24 16:30 10/28/24 06:24 Sucralfate 1 Gm Tablet PO 1 gm BIDAC SONIA Administration Vitamin D 4,000 units 10/25/24 09:00 10/27/24 09:43 Cholecalciferol 1,000 Units Tablet PO 4,000 units DAILY SONIA Administration Radiology Results: ITS Impressions Abdomen/Pelvis CT 10/24/24 19:41 IMPRESSION: 1. No evidence of appendicitis, diverticulitis or intestinal obstruction. 2. Highly suggestive of abscess in the right pararectal area. 3. Markedly thickened rectal wall with distended colon by gases. Further evaluation of the rectum is advised. 4. Hypodensities in both kidneys which may indicate pyelonephritis. Dilated ureters are also noted. 5. Thickened wall of the urinary bladder which may indicate cystitis versus infiltrative process. Further evaluation advised. 6. Intrahepatic and extrahepatic biliary dilatation. 7. Cholelithiasis. 8. Hepatomegaly. Enema w/Water Soluble 10/25/24 14:02 IMPRESSION: 1. Moderate amount of scattered colonic stool suggestive of constipation with no evident strictures/obstruction. MRCP 10/27/24 14:28 IMPRESSION: 1. Mild intra and extra hepatic biliary ductal dilation with both cholelithiasis and choledocholithiasis which does not appear currently obstructing. 2. Very small bilateral posterior layering pleural effusions. 3. Mild bilateral hydronephrosis. Labs Labs: Laboratory Results - last 24 hr 10/27/24 10/27/24 10/27/24 05:20 07:06 13:37 Hgb 8.7 L Hct 27.8 L Potassium 3.6 Blood Type O Positive Antibody Screen Negative Crossmatch See Detail
--- NOTE | 2024-10-28 10:24 | PCNFU ---
Nutrition Follow-Up Complete: Increased nutrient needs related to altered skin integrity as evidenced by noted DTPI to thigh Diet order _ Pt was previously on heart healthy diet, now NPO today for GI PO intake 75% - Pt was meeting goal on previous diet. Continue goal after diet is resumed Goal: Pt current nutrition is NPO for possible ERCP. Nutrition recommendation: Resume previous diet with Ensure Enlive BID and Darrell BID Last recorded weight is 63.5 kg. Bowel Motility: +1 BM 10/28 Labs Reviewed: Hgb 8.7, Hct 27.8 Meds Noted: Colace, remeron, protonix, carafate Skin: Deep tissue pressure injury to thigh Additional Notes: NPo today, resume diet and supplements when diet is advanced. Appetite was good on previous. Continue to monitor. Monitor for diet orders, intake, wt, labs, skin. Follow up in 3 days.
[2024-10-28] MEDS: CHOLECALCIFEROL 1,000 UNITS TABLET 4000 UNITS PO (11:04)
[2024-10-28] MEDS: levETIRAcetam 250 MG TABLET 750 MG PO (11:05)
[2024-10-28] MEDS: ACIDOPHILUS/BULGARICUS CHEWABLE TABLET 1 TABLET PO (11:05)
[2024-10-28] MEDS: AMOXICILLIN/CLAVULANATE K 875-125 MG TAB 1 TABLET PO ×2 (11:05→21:50)
[2024-10-28] MEDS: THERAPEUTIC MULTIVITAMINS/MINERALS TAB (*BKC) 1 TABLET PO (11:05)
[2024-10-28] MEDS: POTASSIUM CHLORIDE 10 MEQ ER TABLET PO ×2 (11:05→16:16)
[2024-10-28] MEDS: PANTOPRAZOLE SOD SESQUIHYDRATE 20 MG TAB PO ×2 (11:05→21:52)
[2024-10-28] MEDS: MAGNESIUM OXIDE 400 MG TABLET PO (11:05)
[2024-10-28] MEDS: IRBESARTAN 75 MG TABLET PO (11:05)
[2024-10-28] MEDS: hydrOXYzine pamoate 25 MG CAPSULE PO ×2 (11:05→16:16)
[2024-10-28 13:58] VITALS: BP 137/65; PULSE 87; RESP 16; TEMP 36.1; O2SAT 97
--- NOTE | 2024-10-28 16:22 | WPDGIPROGNO ---
Progress Note: A&P Assessment and Plan (1) Cholelithiasis with choledocholithiasis: Code(s): K80.70 - Calculus of gallbladder and bile duct without cholecystitis without obstruction Status: Acute Assessment and Plan: no abdominal pain and normal liver enzymes, only small size 2-3 mm stone in bile duct probably chronic finding (reviewed previous CT scan that had stable bile duct dilation), given other issues and no jaundice/cholestasis or pain from biliary dysfunction I recommend to address this problem at another time for which she can follow as outpatient but will discuss with surgery (2) Perirectal abscess: Code(s): K61.1 - Rectal abscess Status: Acute Assessment and Plan: on iv abx, surgery on board barium enema with moderate amount of scattered colonic stool suggestive of constipation with no evident strictures/obstruction. she is having BM's probably colonoscopy as outpatient in several more weeks once acute process is resolved (3) Fecal impaction: Code(s): K56.41 - Fecal impaction Status: Acute (4) Constipation: Qualifiers: Constipation type: chronic idiopathic constipation Qualified Code(s): K59.04 - Chronic idiopathic constipation Code(s): K59.00 - Constipation, unspecified Status: Acute (5) Presence of IVC filter: Code(s): Z95.828 - Presence of other vascular implants and grafts Status: Chronic (6) Dilation of biliary tract: Code(s): K83.8 - Other specified diseases of biliary tract Status: Acute (7) Chronic anemia: Code(s): D64.9 - Anemia, unspecified Status: Chronic Assessment and Plan: probably multifactorial monitor (8) Dementia: Code(s): F03.90 - Unspecified dementia, unspecified severity, without behavioral disturbance, psychotic disturbance, mood disturbance, and anxiety Status: Chronic Assessment and Plan: unable to make own decisions Subjective Date/time seen: 10/28/24 16:22 Interval history: she is pleasant confused, no report of pain RN says that had some loose stool she has been eating, no report of nausea or discomfort Review of Systems Review of Systems: All systems reviewed & are unremarkable except as noted in HPI and below Exam Const: General: cooperative, comfortable and no acute distress Other: pleasantly confused HENMT: Face/Nose/Sinus: Normal nares present Eyes: Sclera: sclerae normal Neck: Neck: supple Resp: Auscultation: clear to auscultation bilaterally Cardio: Rate: regular rate Rhythm: regular rhythm GI: Inspection: normal to inspection GI Palp: No abdominal tenderness and Yes Soft to palpation Skin: General skin exam: normal color Neuro: Other: awake and alert but confused Extrem: General: normal to inspection Objective Data Vital Signs Vital Signs: Vital Signs - 24 hr 10/27/24 20:00 10/27/24 20:45 10/28/24 06:40 Temperature 97.4 F L 98.2 F Pulse Rate 71 Respiratory Rate 18 20 Blood Pressure 117/66 Pulse Oximetry 98 Oxygen Delivery Room Air 10/28/24 08:00 10/28/24 13:58 Temperature 97.0 F L Pulse Rate 87 Respiratory Rate 16 Blood Pressure 137/65 Pulse Oximetry 97 Oxygen Delivery Room Air Intake/Output Intake/Output: Intake & Output 10/25/24 10/26/24 10/27/24 10/28/24 23:59 23:59 23:59 23:59 Intake Total 1200 1680 1840 200 Output Total 4832 858 9080 2250 Balance 0 779 -210 -2050 Meds/Results Medications: Active Medications Generic Name Dose Route Start Last Admin Trade Name Freq PRN Reason Stop Dose Admin Acetaminophen 1,000 mg 10/25/24 08:02 Acetaminophen 500 Mg Tablet PO Q6H PRN Pain 1-3 or fever Amoxicillin/Clavulanate Potassium 1 tablet 10/27/24 11:45 10/28/24 11:05 Amoxicillin/Clavulanate K 875-125 Mg Tab PO 11/03/24 21:01 1 tablet Q12HR SONIA Administration Docusate Sodium 100 mg 10/25/24 09:00 10/28/24 16:16 Docusate Sodium 100 Mg Capsule PO Not Given BID SONIA Hydroxyzine Pamoate 25 mg 10/25/24 17:00 10/28/24 16:16 Hydroxyzine Pamoate 25 Mg Capsule PO 25 mg BID SONIA Administration Irbesartan 75 mg 10/25/24 09:00 10/28/24 11:05 Irbesartan 75 Mg Tablet PO 75 mg DAILY SONIA Administration Lactobacillus Acidophilus 1 tablet 10/25/24 09:00 10/28/24 11:05 Acidophilus/Bulgaricus Chewable Tablet PO 1 tablet DAILY SONIA Administration Levetiracetam 750 mg 10/25/24 09:00 10/28/24 11:05 Levetiracetam 250 Mg Tablet PO 750 mg Q12HR SONIA Administration Magnesium Oxide 400 mg 10/25/24 09:00 10/28/24 11:05 Magnesium Oxide 400 Mg Tablet PO 400 mg DAILY SONIA Administration Mirtazapine 15 mg 10/25/24 21:00 10/27/24 20:57 Mirtazapine 15 Mg Tablet PO 15 mg HS SONIA Administration Montelukast Sodium 10 mg 10/25/24 21:00 10/27/24 20:57 Montelukast Sodium 10 Mg Tablet PO 10 mg HS SONIA Administration Multivitamins/Calcium 1 tablet 10/25/24 09:00 10/28/24 11:05 Therapeutic Multivitamins/Minerals Tab (*Bkc) PO 1 tablet DAILY SONIA Administration Oxycodone HCl 5 mg 10/25/24 08:02 Oxycodone Hcl (*Crx) 5 Mg Tab Ir PO Q4H PRN Pain Rated 7-10 Pantoprazole Sodium 20 mg 10/25/24 09:00 10/28/24 11:05 Pantoprazole Sod Sesquihydrate 20 Mg Tab PO 20 mg Q12HR SONIA Administration Potassium Chloride 10 meq 10/25/24 09:00 10/28/24 16:16 Potassium Chloride 10 Meq Er Tablet PO 10 meq BID SONIA Administration Simvastatin 20 mg 10/25/24 21:00 10/27/24 20:57 Simvastatin 20 Mg Tablet PO 20 mg HS SONIA Administration Sucralfate 1 gm 10/25/24 16:30 10/28/24 16:15 Sucralfate 1 Gm Tablet PO 1 gm BIDAC SONIA Administration Vitamin D 4,000 units 10/25/24 09:00 10/28/24 11:04 Cholecalciferol 1,000 Units Tablet PO 4,000 units DAILY SONIA Administration Radiology Results: ITS Impressions Abdomen/Pelvis CT 10/24/24 19:41 IMPRESSION: 1. No evidence of appendicitis, diverticulitis or intestinal obstruction. 2. Highly suggestive of abscess in the right pararectal area. 3. Markedly thickened rectal wall with distended colon by gases. Further evaluation of the rectum is advised. 4. Hypodensities in both kidneys which may indicate pyelonephritis. Dilated ureters are also noted. 5. Thickened wall of the urinary bladder which may indicate cystitis versus infiltrative process. Further evaluation advised. 6. Intrahepatic and extrahepatic biliary dilatation. 7. Cholelithiasis. 8. Hepatomegaly. Enema w/Water Soluble 10/25/24 14:02 IMPRESSION: 1. Moderate amount of scattered colonic stool suggestive of constipation with no evident strictures/obstruction. MRCP 10/27/24 14:28 IMPRESSION: 1. Mild intra and extra hepatic biliary ductal dilation with both cholelithiasis and choledocholithiasis which does not appear currently obstructing. 2. Very small bilateral posterior layering pleural effusions. 3. Mild bilateral hydronephrosis.
--- NOTE | 2024-10-28 19:41 | P.PNIM_ITS ---
Progress Note: A&P Assessment and Plan (1) Hypertension: Qualifiers: Hypertension type: primary hypertension Qualified Code(s): I10 - Essential (primary) hypertension Code(s): I10 - Essential (primary) hypertension Status: Chronic (2) Perirectal abscess: Code(s): K61.1 - Rectal abscess Status: Acute (3) Bowel obstruction: Qualifiers: Intestinal obstruction type: fecal impaction Qualified Code(s): K56.41 - Fecal impaction Code(s): K56.609 - Unspecified intestinal obstruction, unspecified as to partial versus complete obstruction Status: Acute (4) Presence of IVC filter: Code(s): Z95.828 - Presence of other vascular implants and grafts Status: Chronic (5) Dementia: Code(s): F03.90 - Unspecified dementia, unspecified severity, without behavioral disturbance, psychotic disturbance, mood disturbance, and anxiety Status: Chronic (6) Seizure as late effect of cerebrovascular accident (CVA): Code(s): I69.398 - Other sequelae of cerebral infarction; R56.9 - Unspecified convulsions Status: Acute (7) Constipation: Qualifiers: Constipation type: chronic idiopathic constipation Qualified Code(s): K59.04 - Chronic idiopathic constipation Code(s): K59.00 - Constipation, unspecified Status: Acute Plan Hospital Course 64-year-old female with a past medical history of dementia, intellectual disability, anxiety and depression, CHF, coronary artery disease, DVT, ulcerative colitis, chronic kidney disease, neurogenic bladder with chronic indwelling Kemp catheter spinal stenosis, chronic contractures of bilateral lower extremities and prior small-bowel obstruction who presented to the ER via EMS from [facility] for nausea and vomiting. Admitted for perirectal abscess with proctitis in patient with ulcerative colitis. started on Zosyn IV GI and surgery following Chronic Kemp catheter in place due to neurogenic bladder- kemp was changed in ED and ua was collected. UA concerning for UTI and started on empiric antibiotics IMAGING Abdomen/Pelvis CT 10/24/24 19:41 IMPRESSION: 1. No evidence of appendicitis, diverticulitis or intestinal obstruction. 2. Highly suggestive of abscess in the right pararectal area. 3. Markedly thickened rectal wall with distended colon by gases. Further evaluation of the rectum is advised. 4. Hypodensities in both kidneys which may indicate pyelonephritis. Dilated ureters are also noted. 5. Thickened wall of the urinary bladder which may indicate cystitis versus infiltrative process. Further evaluation advised. 6. Intrahepatic and extrahepatic biliary dilatation. 7. Cholelithiasis. 8. Hepatomegaly. Enema w/Water Soluble 10/25/24 14:02 IMPRESSION: 1. Moderate amount of scattered colonic stool suggestive of constipation with no evident strictures/obstruction. MRCP 10/27/24 14:28 IMPRESSION: 1. Mild intra and extra hepatic biliary ductal dilation with both cholelithiasis and choledocholithiasis which does not appear currently obstructing. 2. Very small bilateral posterior layering pleural effusions. 3. Mild bilateral hydronephrosis. LABS C diff PCR was collected in ed and negative. PLAN Perirectal Abscess Having BM's Continuing Zosyn Surgery following GI planning outpatient colonoscopy after acute issue resolved Cholelithiasis with choledocholithiasis No abdominal pain and normal liver enzymes --Outpatient follow up with GI --Surgery planning cholecystecomy --Clear liquids, NPO post midnight --advance diet per surgery recs --Change keppra to IV. May need to change other medications to IV, follow up am plans with surgery Anemia Type and screen is active 10/27. S/p 1 unit of PRBC for hgb 6.9/Hct 22.7, improved to 8.7/27.8 --Follow CBC in AM --Transfuse if needed Hx Seizures Home meds: Keppra 750 BID Last seizure was 10/02 23, required IV ativan and neurology evaluated during admission. --Continue Keppra, change to IV since NPO in AM Other medical conditions stable -continue home antihypertensives, psychiatric medications and PPI therapy. Time Spent With Patient Time: 47 minutes Subjective Date/time seen: 10/28/24 11:14 Interval history: she is irritable, confused, no report of pain she has been eating, no report of nausea or discomfort Review of Systems Review of Systems: All systems reviewed & are unremarkable except as noted in HPI and below Exam Narrative: General - Awake and alert. No acute distress Eyes - PERRLA, EOM intact ENT - No thrush, No erythema Neck - No noticeable or palpable swelling Lymph Nodes - No lymphadenopathy Cardiovascular - RRR no m/r/g, no JVD Lungs: Clear to auscultation, No wheezing, use of accessory muscles, no crackles Skin - Skin warm and dry, no wounds or rashes Abdomen - Normal bowel sounds, abdomen soft and nontender Extremities - No edema, cyanosis or clubbing Musculoskeletal - 5/5 strength, normal range of motion, no swollen or erythematous joints. Neurological ? Alert and oriented x 1, CN 2-12 grossly intact. Psych: Irritable, Stop talking to me. Don't touch me. Const: General: comfortable; No no acute distress Objective Data Vital Signs Vital Signs: Vital Signs - 24 hr 10/27/24 20:00 10/27/24 20:45 10/28/24 06:40 Temperature 97.4 F L 98.2 F Pulse Rate 71 Respiratory Rate 18 20 Blood Pressure 117/66 Pulse Oximetry 98 Oxygen Delivery Room Air 10/28/24 08:00 10/28/24 13:58 Temperature 97.0 F L Pulse Rate 87 Respiratory Rate 16 Blood Pressure 137/65 Pulse Oximetry 97 Oxygen Delivery Room Air Intake/Output Intake/Output: Intake & Output 10/25/24 10/26/24 10/27/24 10/28/24 23:59 23:59 23:59 23:59 Intake Total 1200 1680 1840 440 Output Total 7927 970 6002 3150 Balance 0 963 -619 -0915 Meds/Results Medications: Active Medications Generic Name Dose Route Start Last Admin Trade Name Freq PRN Reason Stop Dose Admin Acetaminophen 1,000 mg 10/25/24 08:02 Acetaminophen 500 Mg Tablet PO Q6H PRN Pain 1-3 or fever Amoxicillin/Clavulanate Potassium 1 tablet 10/27/24 11:45 10/28/24 11:05 Amoxicillin/Clavulanate K 875-125 Mg Tab PO 11/03/24 21:01 1 tablet Q12HR SONIA Administration Docusate Sodium 100 mg 10/25/24 09:00 10/28/24 16:16 Docusate Sodium 100 Mg Capsule PO Not Given BID SONAI Hydroxyzine Pamoate 25 mg 10/25/24 17:00 10/28/24 16:16 Hydroxyzine Pamoate 25 Mg Capsule PO 25 mg BID SONIA Administration Irbesartan 75 mg 10/25/24 09:00 10/28/24 11:05 Irbesartan 75 Mg Tablet PO 75 mg DAILY SONIA Administration Lactobacillus Acidophilus 1 tablet 10/25/24 09:00 10/28/24 11:05 Acidophilus/Bulgaricus Chewable Tablet PO 1 tablet DAILY SONIA Administration Levetiracetam 750 mg 10/25/24 09:00 10/28/24 11:05 Levetiracetam 250 Mg Tablet PO 750 mg Q12HR SONIA Administration Magnesium Oxide 400 mg 10/25/24 09:00 10/28/24 11:05 Magnesium Oxide 400 Mg Tablet PO 400 mg DAILY SONIA Administration Mirtazapine 15 mg 10/25/24 21:00 10/27/24 20:57 Mirtazapine 15 Mg Tablet PO 15 mg HS SONIA Administration Montelukast Sodium 10 mg 10/25/24 21:00 10/27/24 20:57 Montelukast Sodium 10 Mg Tablet PO 10 mg HS SONIA Administration Multivitamins/Calcium 1 tablet 10/25/24 09:00 10/28/24 11:05 Therapeutic Multivitamins/Minerals Tab (*Bkc) PO 1 tablet DAILY SONIA Administration Oxycodone HCl 5 mg 10/25/24 08:02 Oxycodone Hcl (*Crx) 5 Mg Tab Ir PO Q4H PRN Pain Rated 7-10 Pantoprazole Sodium 20 mg 10/25/24 09:00 10/28/24 11:05 Pantoprazole Sod Sesquihydrate 20 Mg Tab PO 20 mg Q12HR SONIA Administration Potassium Chloride 10 meq 10/25/24 09:00 10/28/24 16:16 Potassium Chloride 10 Meq Er Tablet PO 10 meq BID SONIA Administration Simvastatin 20 mg 10/25/24 21:00 10/27/24 20:57 Simvastatin 20 Mg Tablet PO 20 mg HS SONIA Administration Sucralfate 1 gm 10/25/24 16:30 10/28/24 16:15 Sucralfate 1 Gm Tablet PO 1 gm BIDAC SONIA Administration Vitamin D 4,000 units 10/25/24 09:00 10/28/24 11:04 Cholecalciferol 1,000 Units Tablet PO 4,000 units DAILY OSNIA Administration Radiology Results: ITS Impressions Abdomen/Pelvis CT 10/24/24 19:41 IMPRESSION: 1. No evidence of appendicitis, diverticulitis or intestinal obstruction. 2. Highly suggestive of abscess in the right pararectal area. 3. Markedly thickened rectal wall with distended colon by gases. Further evaluation of the rectum is advised. 4. Hypodensities in both kidneys which may indicate pyelonephritis. Dilated ureters are also noted. 5. Thickened wall of the urinary bladder which may indicate cystitis versus infiltrative process. Further evaluation advised. 6. Intrahepatic and extrahepatic biliary dilatation. 7. Cholelithiasis. 8. Hepatomegaly. Enema w/Water Soluble 10/25/24 14:02 IMPRESSION: 1. Moderate amount of scattered colonic stool suggestive of constipation with no evident strictures/obstruction. MRCP 10/27/24 14:28 IMPRESSION: 1. Mild intra and extra hepatic biliary ductal dilation with both cholelithiasis and choledocholithiasis which does not appear currently obstructing. 2. Very small bilateral posterior layering pleural effusions. 3. Mild bilateral hydronephrosis. Quality VTE Prophylaxis VTE prophylaxis: mechanical ordered (Patient has IVC filter in place. Pharmacologic prophylaxis not indicated due to patient's recurrent anemia.) Hospitalist MIPS Advance Care Plan I have confirmed that the patient's Advanced Care Plan is present, code status is documented, or surrogate decision maker is listed in patient medical record.: Yes Medication Reconciliation I have utilized all available resources to obtain, update and review the patients current medications (includes all prescriptions, OTC, herbals, cannabis, and nutritional supplements).: Yes
[2024-10-28 20:00] VITALS: PULSE 87; RESP 16; O2SAT 97
[2024-10-28 20:34] LABS: Eosinophils Absolute Auto 0.2 K/mm3 (0-0.3); Eosinophils Percent Auto 5.3 % (0-4.4); Hematocrit 29.4 % (37.0-47.0); Hemoglobin 9.4 g/dL (12.0-15.0); Immature Granulocyte Absolute 0.03 K/mm3 (0.00-0.031); Immature Granulocyte Percent A 0.8 % (0-0.5); Mean Corpuscular Hemoglobin 30.1 pg (26-34); Mean Corpuscular Volume 94.2 fl (80-100); Mean Platelet Volume 9.4 fl (7.4-10.4); Monocytes Absolute Auto 0.7 K/mm3 (0.1-0.6); Monocytes Percent Auto 16.5 % (2.6-8.5); Neutrophils Absolute Auto 1.9 K/mm3 (1.3-6.7); Neutrophils Percent Auto 48.4 % (45.5-73.1); Platelet Count Result 194 k/mm3 (150-375); Red Blood Count 3.12 M/mm3 (4.2-5.4); Red Cell Distribution Width 14.8 % (11.5-14.5); White Blood Count 3.9 K/mm3 (4.5-10.0)
[2024-10-28 21:00] VITALS: BP 122/63; PULSE 75; RESP 16; TEMP 36.9; O2SAT 97
[2024-10-28] MEDS: SIMVASTATIN 20 MG TABLET PO (21:49)
[2024-10-28] MEDS: MONTELUKAST SODIUM 10 MG TABLET PO (21:49)
[2024-10-28] MEDS: MIRTAZAPINE 15 MG TABLET PO (21:50)
[2024-10-28] MEDS: levETIRAcetam IV 750 MG in DEXTROSE 5% 100 ML 430 MG IVPB (21:50)
[2024-10-29] VITALS (47 sets, daily range): BP systolic 40–202; BP diastolic 25–102; PULSE 72–147; RESP 14–30; TEMP 34.3–36.9; O2SAT 77–100
[2024-10-29 07:07] LABS: Basophils Percent Auto 1.2 % (0.2-1.2); Eosinophils Absolute Auto 0.2 K/mm3 (0-0.3); Eosinophils Percent Auto 5.6 % (0-4.4); Hematocrit 30.2 % (37.0-47.0); Hemoglobin 9.4 g/dL (12.0-15.0); Immature Granulocyte Absolute 0.07 K/mm3 (0.00-0.031); Immature Granulocyte Percent A 2.2 % (0-0.5); Lymphocytes Absolute Auto 0.89 K/mm3 (0.9-3.2); Lymphocytes Percent Auto 27.5 % (18.3-44.2); Mean Corpuscular HGB Conc 31.1 g/dl (32-36); Mean Corpuscular Hemoglobin 29.7 pg (26-34); Mean Corpuscular Volume 95.6 fl (80-100); Mean Platelet Volume 9.2 fl (7.4-10.4); Monocytes Absolute Auto 0.5 K/mm3 (0.1-0.6); Monocytes Percent Auto 14.2 % (2.6-8.5); Neutrophils Absolute Auto 1.6 K/mm3 (1.3-6.7); Neutrophils Percent Auto 49.3 % (45.5-73.1); Platelet Count Result 190 k/mm3 (150-375); Red Blood Count 3.16 M/mm3 (4.2-5.4); Red Cell Distribution Width 14.6 % (11.5-14.5); White Blood Count 3.2 K/mm3 (4.5-10.0)
[2024-10-29 07:20] LABS: Potassium 4.1 mmol/L (3.4-5.0)
--- NOTE | 2024-10-29 07:37 | PM.PNGS ---
Progress Note: A&P Assessment and Plan (1) Cholelithiasis with choledocholithiasis: Code(s): K80.70 - Calculus of gallbladder and bile duct without cholecystitis without obstruction Status: Acute Assessment and Plan: MRCP shows gallstones and choledocholithiasis. Discussed with Dr. Tomlin. Stones are very small in the common bile duct and may pass on their own. Will go ahead with laparoscopic cholecystectomy and include intraoperative cholangiogram. I discussed the procedure with the patient thoroughly. She understands and agrees to go ahead. (2) Abnormal CT scan, pelvis: Code(s): R93.5 - Abnormal findings on diagnostic imaging of other abdominal regions, including retroperitoneum Status: Acute Assessment and Plan: No abscess seen or palpable on digital rectal exam. Review of the CT scan shows that this fluid collection on the right is higher in the rectum and not sure if this would really be a perirectal abscess or a pelvic fluid collection. Will review films with Dr. Rodriguez and then formulate future plan. Subjective Subjective Date/Time Seen: 10/29/24 07:37 Patient reports: no new complaints, pain is less, bowel movement and afebrile Review of Systems Review of Systems: ROS unobtainable: Yes unobtainable due to medical condition Exam Const: General: comfortable, alert and awake Nutritional Appearance: thin GI: Inspection: no abdominal wall ecchymosis, non-distended, scaphoid, scar and no visible herniation GI Palp: Yes Soft to palpation, No Tenderness to palpation present (GI), No Hernia present and No Palpable mass present Rectal Exam: visual inspection normal, normal sphincter tone, Abnormal stool present (Liquid stool) and No abscess Objective Data Vital Signs Vital Signs: Vital Signs - 24 hr 10/28/24 08:00 10/28/24 13:58 10/28/24 20:00 Temperature 36.1 C L Pulse Rate 87 87 Respiratory Rate 16 16 Blood Pressure 137/65 Pulse Oximetry 97 97 Oxygen Delivery Room Air Room Air 10/28/24 21:00 10/29/24 05:35 Temperature 36.9 C 36.1 C L Pulse Rate 75 72 Respiratory Rate 16 18 Blood Pressure 122/63 139/65 Pulse Oximetry 97 99 Oxygen Delivery Intake/Output Intake/Output: Intake & Output 10/26/24 10/27/24 10/28/24 10/29/24 23:59 23:59 23:59 23:59 Intake Total 1680 1840 547.5 120 Output Total 904 6262 6916 5872 Balance 049 -210 -2602.5 -1726 Meds/Results Medications: Active Medications Generic Name Dose Route Start Last Admin Trade Name Freq PRN Reason Stop Dose Admin Acetaminophen 1,000 mg 10/25/24 08:02 Acetaminophen 500 Mg Tablet PO Q6H PRN Pain 1-3 or fever Amoxicillin/Clavulanate Potassium 1 tablet 10/27/24 11:45 10/28/24 21:50 Amoxicillin/Clavulanate K 875-125 Mg Tab PO 11/03/24 21:01 1 tablet Q12HR SONIA Administration Docusate Sodium 100 mg 10/25/24 09:00 10/28/24 16:16 Docusate Sodium 100 Mg Capsule PO Not Given BID SONIA Hydroxyzine Pamoate 25 mg 10/25/24 17:00 10/28/24 16:16 Hydroxyzine Pamoate 25 Mg Capsule PO 25 mg BID SONIA Administration Levetiracetam 750 mg/ Dextrose 107.5 mls @ 430 mls/hr 10/28/24 21:00 10/28/24 22:05 IVPB Infused Q12H SONIA Infusion Irbesartan 75 mg 10/25/24 09:00 10/28/24 11:05 Irbesartan 75 Mg Tablet PO 75 mg DAILY SONIA Administration Lactobacillus Acidophilus 1 tablet 10/25/24 09:00 10/28/24 11:05 Acidophilus/Bulgaricus Chewable Tablet PO 1 tablet DAILY SONIA Administration Magnesium Oxide 400 mg 10/25/24 09:00 10/28/24 11:05 Magnesium Oxide 400 Mg Tablet PO 400 mg DAILY SONIA Administration Mirtazapine 15 mg 10/25/24 21:00 10/28/24 21:50 Mirtazapine 15 Mg Tablet PO 15 mg HS SONIA Administration Montelukast Sodium 10 mg 10/25/24 21:00 10/28/24 21:49 Montelukast Sodium 10 Mg Tablet PO 10 mg HS SONIA Administration Multivitamins/Calcium 1 tablet 10/25/24 09:00 10/28/24 11:05 Therapeutic Multivitamins/Minerals Tab (*Bkc) PO 1 tablet DAILY SONIA Administration Oxycodone HCl 5 mg 10/25/24 08:02 Oxycodone Hcl (*Crx) 5 Mg Tab Ir PO Q4H PRN Pain Rated 7-10 Pantoprazole Sodium 20 mg 10/25/24 09:00 10/28/24 21:52 Pantoprazole Sod Sesquihydrate 20 Mg Tab PO 20 mg Q12HR SONIA Administration Potassium Chloride 10 meq 10/25/24 09:00 10/28/24 16:16 Potassium Chloride 10 Meq Er Tablet PO 10 meq BID SONIA Administration Simvastatin 20 mg 10/25/24 21:00 10/28/24 21:49 Simvastatin 20 Mg Tablet PO 20 mg HS SONIA Administration Sucralfate 1 gm 10/25/24 16:30 10/29/24 05:51 Sucralfate 1 Gm Tablet PO Not Given BIDAC [facility] Vitamin D 4,000 units 10/25/24 09:00 10/28/24 11:04 Cholecalciferol 1,000 Units Tablet PO 4,000 units DAILY SONIA Administration Radiology Results: ITS Impressions Abdomen/Pelvis CT 10/24/24 19:41 IMPRESSION: 1. No evidence of appendicitis, diverticulitis or intestinal obstruction. 2. Highly suggestive of abscess in the right pararectal area. 3. Markedly thickened rectal wall with distended colon by gases. Further evaluation of the rectum is advised. 4. Hypodensities in both kidneys which may indicate pyelonephritis. Dilated ureters are also noted. 5. Thickened wall of the urinary bladder which may indicate cystitis versus infiltrative process. Further evaluation advised. 6. Intrahepatic and extrahepatic biliary dilatation. 7. Cholelithiasis. 8. Hepatomegaly. Enema w/Water Soluble 10/25/24 14:02 IMPRESSION: 1. Moderate amount of scattered colonic stool suggestive of constipation with no evident strictures/obstruction. MRCP 10/27/24 14:28 IMPRESSION: 1. Mild intra and extra hepatic biliary ductal dilation with both cholelithiasis and choledocholithiasis which does not appear currently obstructing. 2. Very small bilateral posterior layering pleural effusions. 3. Mild bilateral hydronephrosis. Labs Labs: Laboratory Results - last 24 hr 10/28/24 10/29/24 20:27 06:57 WBC 3.9 L 3.2 L RBC 3.12 L 3.16 L Hgb 9.4 L 9.4 L Hct 29.4 L 30.2 L MCV 94.2 95.6 MCH 30.1 29.7 MCHC 32.0 31.1 L RDW 14.8 H 14.6 H Plt Count 194 190 MPV 9.4 9.2 Immature Gran % (Auto) 0.8 H 2.2 H Neut % (Auto) 48.4 49.3 Lymph % (Auto) 28.0 27.5 [place] % (Auto) 16.5 H 14.2 H Eos % (Auto) 5.3 H 5.6 H Baso % (Auto) 1.0 1.2 Lymph # (Auto) 1.10 0.89 L [place] # (Auto) 0.7 H 0.5 Eos # (Auto) 0.2 0.2 Baso # (Auto) 0.0 0.0 Abs Immat Gran (auto) 0.03 0.07 H Absolute Neuts (auto) 1.9 1.6 Absolute Nucleated RBC 0.000 0.000 Nucleated RBC % 0.0 0.0 Potassium 4.1
[2024-10-29] MEDS: levETIRAcetam IV 750 MG in DEXTROSE 5% 100 ML 430 MG IVPB ×2 (08:51→23:03)
--- NOTE | 2024-10-29 12:34 | PC.NURSE ---
To pre-op per [bed], IV [22 L FA]. Report given to [November RN].
--- NOTE | 2024-10-29 14:00 | WPDANESEPPF ---
Anes - Initial Pre Proc Eval Procedure: Operation Date: 10/29/24 13:30 Proposed Procedures p Laparoscopic Cholecystectomy - Wyatt Cardenas MD Date/Time: 10/29/24 14:00 Surgeon: Kate Richards APRN Pre Op Diagnosis: Pararectal Abscess Patient Data Age: 64 Gender: F Height: 1.63 m Weight: 63.5 kg Last Vital Signs Temp 36.9 C 10/29/24 12:40 Pulse 73 10/29/24 12:40 Resp 18 10/29/24 12:40 BP 118/63 10/29/24 12:40 Pulse Ox 100 10/29/24 12:40 O2 Del Method Room Air 10/29/24 12:40 Allergies Allergy/AdvReac Type Severity Reaction Status Date / Time lorazepam Allergy Unknown Verified 10/24/24 19:22 Home Medications ?Medication ?Instructions ?Recorded ?Confirmed ?Type hydroxyzine pamoate 25 mg capsule 25 mg PO BID 03/07/21 10/24/24 History mirtazapine 15 mg tablet 15 mg PO HS 03/07/21 10/24/24 History montelukast 10 mg tablet 10 mg PO DAILY 03/07/21 10/24/24 History simvastatin 20 mg tablet 20 mg PO HS 03/07/21 10/24/24 History sucralfate 1 gram tablet 1 g PO BID 03/07/21 10/24/24 History Lactobacillus acidophilus 1 cap PO DAILY 03/08/21 10/24/24 History (Acidophilus capsule) acetaminophen 500 mg capsule 1,000 mg PO Q6H PRN Pain 03/08/21 10/24/24 History ascorbate calcium (vitamin C) 500 500 mg PO BID 03/08/21 10/24/24 History mg tablet ergocalciferol (vitamin D2) 25,000 50,000 unit PO WEEKLY 03/08/21 10/24/24 History unit capsule multivitamin with minerals (Daily 1 tablet PO DAILY 03/08/21 10/24/24 History Multivitamin-Minerals tablet) potassium chloride 10 mEq 10 meq PO BID 09/16/24 10/24/24 History tablet,extended release docusate sodium 100 mg capsule 100 mg PO BID constipation #60 09/21/24 10/24/24 Rx caps ergocalciferol (vitamin D2) 50 mcg 100 mcg PO DAILY 09/27/24 10/24/24 History (2,000 unit) tablet lactulose 10 gram/15 mL oral 20 g (30 mL) PO Q12H #1,800 mL 10/12/24 10/24/24 Rx solution levetiracetam 250 mg tablet 750 mg (3 x 250 mg) PO Q12HR #180 10/12/24 10/24/24 Rx tabs magnesium oxide 400 mg (241.3 mg 400 mg PO DAILY #60 tabs 10/12/24 10/24/24 Rx magnesium) tablet oxycodone 5 mg tablet 5 mg PO Q4H PRN Pain Rated 7-10 10/12/24 10/24/24 Rx #15 tabs pantoprazole 20 mg tablet,delayed 20 mg PO Q12HR #60 tabs 10/12/24 10/24/24 Rx release (Protonix) metoclopramide HCl 10 mg tablet 10 mg PO Q6H PRN nausea and 10/13/24 10/24/24 Rx (Reglan) vomiting #60 tabs bisacodyl 10 mg rectal suppository 10 mg RECTAL Q12H PRN constipation 10/24/24 10/24/24 History irbesartan 75 mg tablet 75 mg PO DAILY 10/24/24 10/24/24 History sodium phosphates 19 gram-7 118 ml RECTAL DAILY PRN 10/24/24 10/24/24 History gram/118 mL enema (Fleet Enema) constipation Laboratory Tests 10/28/24 10/29/24 20:27 06:57 WBC 3.9 L K/mm3 3.2 L K/mm3 (4.5-10.0) (4.5-10.0) RBC 3.12 L M/mm3 3.16 L M/mm3 (4.2-5.4) (4.2-5.4) Hgb 9.4 L g/dL 9.4 L g/dL (12.0-15.0) (12.0-15.0) Hct 29.4 L % 30.2 L % (37.0-47.0) (37.0-47.0) MCV 94.2 fl 95.6 fl (80-100) (80-100) MCH 30.1 pg 29.7 pg (26-34) (26-34) MCHC 32.0 g/dl 31.1 L g/dl (32-36) (32-36) RDW 14.8 H % 14.6 H % (11.5-14.5) (11.5-14.5) Plt Count 194 k/mm3 190 k/mm3 (150-375) (150-375) MPV 9.4 fl 9.2 fl (7.4-10.4) (7.4-10.4) Immature Gran % (Auto) 0.8 H % 2.2 H % (0-0.5) (0-0.5) Neut % (Auto) 48.4 % 49.3 % (45.5-73.1) (45.5-73.1) Lymph % (Auto) 28.0 % 27.5 % (18.3-44.2) (18.3-44.2) [place] % (Auto) 16.5 H % 14.2 H % (2.6-8.5) (2.6-8.5) Eos % (Auto) 5.3 H % 5.6 H % (0-4.4) (0-4.4) Baso % (Auto) 1.0 % 1.2 % (0.2-1.2) (0.2-1.2) Lymph # (Auto) 1.10 K/mm3 0.89 L K/mm3 (0.9-3.2) (0.9-3.2) [place] # (Auto) 0.7 H K/mm3 0.5 K/mm3 (0.1-0.6) (0.1-0.6) Eos # (Auto) 0.2 K/mm3 0.2 K/mm3 (0-0.3) (0-0.3) Baso # (Auto) 0.0 K/mm3 0.0 K/mm3 (0.0-0.1) (0.0-0.1) Abs Immat Gran (auto) 0.03 K/mm3 0.07 H K/mm3 (0.00-0.031) (0.00-0.031) Absolute Neuts (auto) 1.9 K/mm3 1.6 K/mm3 (1.3-6.7) (1.3-6.7) Absolute Nucleated RBC 0.000 K/mm3 0.000 K/mm3 (0.0-0.012) (0.0-0.012) Nucleated RBC % 0.0 % 0.0 % (0.0-0.2) (0.0-0.2) Potassium 4.1 mmol/L (3.4-5.0) Patient hx anesthesia problems: none Family hx anesthesia problems: none Results Review: All pre-operative results and documents have been reviewed as part of the pre-operative evaluation. [facility] Past Medical History Medical History Cholelithiasis with choledocholithiasis Seizure as late effect of cerebrovascular accident (CVA) Presence of IVC filter Hypertension Neurogenic bladder Deep venous thrombosis Coronary artery disease Poorly documented and patient denies. Anxiety Chronic anemia Arthritis Gastroesophageal reflux disease Ulcerative colitis Hyperlipidemia Dementia Chronic indwelling White catheter Surgical History Surgical History History of colon resection Family History Family History Other Family history unknown Social History Social History Social History: Surrogate decision maker: Amanda Parker, sibling. Code status: Full code. Smoking status: Unknown if ever smoked Alcohol intake: never Substance use: never Substance use type: does not use Do You Feel Safe in your Home?: Yes Lack of Transportation: No Lack of Food: Never True Current Housing: I Have Housing Concerned About Future Housing: No Difficulty Paying Gas/Electric Bills: No Difficulty Paying for Meds: No Currently Unemployed: No Education: Don't Know Difficulty w/ Childcare or Family Care: No Additional living arrangements comments: The patient is a resident at [facility]. Additional occupation/education comments: Disabled. Spiritual care concerns: No Anes - Eval Final PreProcedure Day of Procedure 10/29/24 14:00 Patient weight: normal Heart: regular rate and rhythm Lungs: decreased breath sounds Airway: Mallampati scale class II Neurological: other (alert) Last oral intake: >/= 8 hours ASA classification: III Emergent: no Anesthetic plan: proceed Anesthesia type and monitoring: general ETT and standard monitoring Results Review: All pre-operative results and documents have been reviewed as part of the pre-operative evaluation. Informed Consent: The patient's anesthetic plan and its attendant risks and benefits were discussed with the patient/family/POA. Questions were solicited and answers provided to the satisfaction of the patient/family/POA.
[2024-10-29] MEDS: ceFAZolin 2 GM/D5W 50 ML 2 GM/50 ML BAG IVPB (14:26)
--- NOTE | 2024-10-29 14:48 | P.PNIM_ITS ---
Progress Note: A&P Assessment and Plan (1) Hypertension: Qualifiers: Hypertension type: primary hypertension Qualified Code(s): I10 - Essential (primary) hypertension Code(s): I10 - Essential (primary) hypertension Status: Chronic (2) Perirectal abscess: Code(s): K61.1 - Rectal abscess Status: Acute (3) Bowel obstruction: Qualifiers: Intestinal obstruction type: fecal impaction Qualified Code(s): K56.41 - Fecal impaction Code(s): K56.609 - Unspecified intestinal obstruction, unspecified as to partial versus complete obstruction Status: Acute (4) Presence of IVC filter: Code(s): Z95.828 - Presence of other vascular implants and grafts Status: Chronic (5) Dementia: Code(s): F03.90 - Unspecified dementia, unspecified severity, without behavioral disturbance, psychotic disturbance, mood disturbance, and anxiety Status: Chronic (6) Seizure as late effect of cerebrovascular accident (CVA): Code(s): I69.398 - Other sequelae of cerebral infarction; R56.9 - Unspecified convulsions Status: Acute (7) Constipation: Qualifiers: Constipation type: chronic idiopathic constipation Qualified Code(s): K59.04 - Chronic idiopathic constipation Code(s): K59.00 - Constipation, unspecified Status: Acute Plan 64-year-old female with a past medical history of dementia, intellectual disability, anxiety and depression, CHF, coronary artery disease, DVT, ulcerative colitis, chronic kidney disease, neurogenic bladder with chronic indwelling Kemp catheter spinal stenosis, chronic contractures of bilateral lower extremities and prior small-bowel obstruction who presented to the ER via EMS from long term for nausea and vomiting. Admitted for perirectal abscess with proctitis in patient with ulcerative colitis. started on Zosyn IV GI and surgery following Chronic Kemp catheter in place due to neurogenic bladder- kemp was changed in ED and ua was collected. UA concerning for UTI and started on empiric antibiotics IMAGING Abdomen/Pelvis CT 10/24/24 19:41 IMPRESSION: 1. No evidence of appendicitis, diverticulitis or intestinal obstruction. 2. Highly suggestive of abscess in the right pararectal area. 3. Markedly thickened rectal wall with distended colon by gases. Further evaluation of the rectum is advised. 4. Hypodensities in both kidneys which may indicate pyelonephritis. Dilated ureters are also noted. 5. Thickened wall of the urinary bladder which may indicate cystitis versus infiltrative process. Further evaluation advised. 6. Intrahepatic and extrahepatic biliary dilatation. 7. Cholelithiasis. 8. Hepatomegaly. Enema w/Water Soluble 10/25/24 14:02 IMPRESSION: 1. Moderate amount of scattered colonic stool suggestive of constipation with no evident strictures/obstruction. MRCP 10/27/24 14:28 IMPRESSION: 1. Mild intra and extra hepatic biliary ductal dilation with both cholelithiasis and choledocholithiasis which does not appear currently obstructing. 2. Very small bilateral posterior layering pleural effusions. 3. Mild bilateral hydronephrosis. LABS C diff PCR was collected in ed and negative. # Perirectal Abscess Having BM's Continuing Zosyn Surgery following GI planning outpatient colonoscopy after acute issue resolved # Cholelithiasis with choledocholithiasis No abdominal pain and normal liver enzymes --Outpatient follow up with GI --Surgery planning cholecystecomy today --advance diet per surgery recs --Change keppra to IV. May need to change other medications to IV, follow up am plans with surgery # Anemia Type and screen is active 10/27. S/p 1 unit of PRBC for hgb 6.9/Hct 22.7, improved to 8.7/27.8 --Follow CBC in AM --Transfuse if needed # Hx Seizures Home meds: Keppra 750 BID Last seizure was 10/02 23, required IV ativan and neurology evaluated during a dmission. --Continue Keppra, change to IV since NPO in AM continue home antihypertensives, psychiatric medications and PPI therapy. Subjective Date/time seen: 10/29/24 14:48 Interval history: No overnight events reported. Denies any abdominal pain. Currently plan for l ap choly. Review of Systems Review of Systems: All systems reviewed & are unremarkable except as noted in HPI and below Exam Narrative: General - Awake and alert. No acute distress Eyes - PERRLA, EOM intact ENT - No thrush, No erythema Neck - No noticeable or palpable swelling Lymph Nodes - No lymphadenopathy Cardiovascular - RRR no m/r/g, no JVD Lungs: Clear to auscultation, No wheezing, use of accessory muscles, no crackles Skin - Skin warm and dry, no wounds or rashes Abdomen - Normal bowel sounds, abdomen soft and nontender Extremities - No edema, cyanosis or clubbing Musculoskeletal - 5/5 strength, normal range of motion, no swollen or erythematous joints. Neurological ? Alert and oriented x 1, CN 2-12 grossly intact. Psych: Calm and cooperative Objective Data Vital Signs Vital Signs: Vital Signs - 24 hr 10/28/24 20:00 10/28/24 21:00 10/29/24 05:35 Temperature 98.4 F 97 F L Pulse Rate 87 75 72 Respiratory Rate 16 16 18 Blood Pressure 122/63 139/65 Pulse Oximetry 97 97 99 Oxygen Delivery Room Air 10/29/24 08:00 10/29/24 12:40 Temperature 98.5 F Pulse Rate 73 Respiratory Rate 18 Blood Pressure 118/63 Pulse Oximetry 100 Oxygen Delivery Room Air Room Air Intake/Output Intake/Output: Intake & Output 10/26/24 10/27/24 10/28/24 10/29/24 23:59 23:59 23:59 23:59 Intake Total 1680 1840 547.5 227.5 Output Total 901 2050 3150 2450 Balance 779 -210 -2602.5 -2222.5 Meds/Results Medications: Active Medications Generic Name Dose Route Start Last Admin Trade Name Freq PRN Reason Stop Dose Admin Acetaminophen 1,000 mg 10/25/24 08:02 Acetaminophen 500 Mg Tablet PO Q6H PRN Pain 1-3 or fever Amoxicillin/Clavulanate Potassium 1 tablet 10/27/24 11:45 10/29/24 08:47 Amoxicillin/Clavulanate K 875-125 Mg Tab PO 11/04/24 09:01 Not Given Q12HR SONIA Docusate Sodium 100 mg 10/25/24 09:00 10/29/24 08:47 Docusate Sodium 100 Mg Capsule PO Not Given BID SONIA Fentanyl Citrate 25 mcg 10/29/24 14:00 Fentanyl Citrate Inj (*Crx) 100 Mcg/2 Ml Vial IV PUSH Q2M PRN Pain Hydroxyzine Pamoate 25 mg 10/25/24 17:00 10/29/24 08:51 Hydroxyzine Pamoate 25 Mg Capsule PO Not Given BID SONIA Levetiracetam 750 mg/ Dextrose 107.5 mls @ 430 mls/hr 10/28/24 21:00 10/29/24 09:06 IVPB Infused Q12H SONIA Infusion Lactated Ringer's 1,000 mls @ 30 mls/hr 10/29/24 14:00 Lr - Lactated Ringers Iv IV CONT .Q24H SONIA Lactated Ringer's 1,000 mls @ 30 mls/hr 10/29/24 14:00 Lr - Lactated Ringers Iv IV CONT .Q24H SONIA Irbesartan 75 mg 10/25/24 09:00 10/29/24 08:47 Irbesartan 75 Mg Tablet PO Not Given DAILY SONIA Lactobacillus Acidophilus 1 tablet 10/25/24 09:00 10/29/24 08:47 Acidophilus/[place] Chewable Tablet PO Not Given DAILY SONIA Magnesium Oxide 400 mg 10/25/24 09:00 10/29/24 08:47 Magnesium Oxide 400 Mg Tablet PO Not Given DAILY SONIA Mirtazapine 15 mg 10/25/24 21:00 10/28/24 21:50 Mirtazapine 15 Mg Tablet PO 15 mg HS SONIA Administration Montelukast Sodium 10 mg 10/25/24 21:00 10/28/24 21:49 Montelukast Sodium 10 Mg Tablet PO 10 mg HS [facility] Administration Multivitamins/Calcium 1 tablet 10/25/24 09:00 10/29/24 08:47 Therapeutic Multivitamins/Minerals Tab (*Bkc) PO Not Given DAILY [facility] Ondansetron HCl 4 mg 10/29/24 14:00 Ondansetron Inj 4 Mg/2 Ml Vial IV PUSH ONCE PRN Nausea Oxycodone HCl 5 mg 10/25/24 08:02 Oxycodone Hcl (*Crx) 5 Mg Tab Ir PO Q4H PRN Pain Rated 7-10 Pantoprazole Sodium 20 mg 10/25/24 09:00 10/29/24 08:47 Pantoprazole Sod Sesquihydrate 20 Mg Tab PO Not Given Q12HR SONIA Potassium Chloride 10 meq 10/25/24 09:00 10/29/24 08:47 Potassium Chloride 10 Meq Er Tablet PO Not Given BID SONIA Simvastatin 20 mg 10/25/24 21:00 10/28/24 21:49 Simvastatin 20 Mg Tablet PO 20 mg HS SONIA Administration Sucralfate 1 gm 10/25/24 16:30 10/29/24 05:51 Sucralfate 1 Gm Tablet PO Not Given BIDAC [facility] Vitamin D 4,000 units 10/25/24 09:00 10/29/24 08:47 Cholecalciferol 1,000 Units Tablet PO Not Given DAILY [facility] Radiology Results: ITS Impressions Abdomen/Pelvis CT 10/24/24 19:41 IMPRESSION: 1. No evidence of appendicitis, diverticulitis or intestinal obstruction. 2. Highly suggestive of abscess in the right pararectal area. 3. Markedly thickened rectal wall with distended colon by gases. Further evaluation of the rectum is advised. 4. Hypodensities in both kidneys which may indicate pyelonephritis. Dilated ureters are also noted. 5. Thickened wall of the urinary bladder which may indicate cystitis versus infiltrative process. Further evaluation advised. 6. Intrahepatic and extrahepatic biliary dilatation. 7. Cholelithiasis. 8. Hepatomegaly. Enema w/Water Soluble 10/25/24 14:02 IMPRESSION: 1. Moderate amount of scattered colonic stool suggestive of constipation with no evident strictures/obstruction. MRCP 10/27/24 14:28 IMPRESSION: 1. Mild intra and extra hepatic biliary ductal dilation with both cholelithiasis and choledocholithiasis which does not appear currently obstructing. 2. Very small bilateral posterior layering pleural effusions. 3. Mild bilateral hydronephrosis. Labs Labs: Laboratory Results - last 24 hr 10/28/24 10/29/24 20:27 06:57 WBC 3.9 L 3.2 L RBC 3.12 L 3.16 L Hgb 9.4 L 9.4 L Hct 29.4 L 30.2 L MCV 94.2 95.6 MCH 30.1 29.7 MCHC 32.0 31.1 L RDW 14.8 H 14.6 H Plt Count 194 190 MPV 9.4 9.2 Immature Gran % (Auto) 0.8 H 2.2 H Neut % (Auto) 48.4 49.3 Lymph % (Auto) 28.0 27.5 [place] % (Auto) 16.5 H 14.2 H Eos % (Auto) 5.3 H 5.6 H Baso % (Auto) 1.0 1.2 Lymph # (Auto) 1.10 0.89 L [place] # (Auto) 0.7 H 0.5 Eos # (Auto) 0.2 0.2 Baso # (Auto) 0.0 0.0 Abs Immat Gran (auto) 0.03 0.07 H Absolute Neuts (auto) 1.9 1.6 Absolute Nucleated RBC 0.000 0.000 Nucleated RBC % 0.0 0.0 Potassium 4.1
[2024-10-29] MEDS: BUPIVACAINE/EPINEPHRINE 0.5% 50 ML VIAL 30 ML INFILTRATE (15:33)
--- NOTE | 2024-10-29 16:21 | WPDANESCVCPN ---
Anes - Cent Venous Cath Note Consent: the need to proceed with central venous catheter insertion as an important element of the patient's clinical management given emergent patient conditions, temporal constraints may have precluded informed consent. Time-Out: A pre-procedural Time-Out was completed immediately before starting the procedure and confirmed: Patient Identification, Site, Procedure, Patient Position and the Availability of Requisite Equipment. Procedure Note Clinical Indications: hemorrhage Patient position: supine Central venous catheter insertion site: right internal jugular CVC method of insertion: ultrasound-guided Hand hygiene/Aseptic technique: Hand hygiene procedures were performed. Aseptic technique was maintained throughout the procedure. Sterile barrier precautions: Maximal sterile barrier precautions, including use of a cap, mask, sterile gown, sterile gloves and a sterile full body drape. Site prep: chlorhexidine Skin anesthesia: placed under general anesthesia [place]ese: 7 Lumen: 3 Length (cm): 15 cm Depth of insertion (cm): 14 Closure/Dressing: suture, biopatch and tegaderm Complications: None immediately noted/suspected. Chest X Ray: Ordered/review to follow. Procedure comments: no complications
[2024-10-29] MEDS: TRANEXAMIC ACID 1,000 MG/10 ML AMPUL 1000 MG IV PUSH (16:36)
[2024-10-29 17:30] LABS: Alveolar/Arterial O2 Gradient 262.6 mmHg; Base Excess ABG -9.5 mEq/l (+/-2.0); Fractional Inspired Oxygen 100 %; Oxygen Content ABG 16.6 %vol (16.0-22.0); Oxygen Saturation ABG 99.8 % (95.0-100.0); Oxyhemoglobin 99.4 % THb (90.0-100.0); PCO2 ABG 45.4 mmHg (35.0-45.0); PO2 FiO2 Ratio Arterial Blood 4.05 %; Total Hemoglobin 11.1 g/dL (12.0-18.0)
[2024-10-29 17:31] LABS: Device IN OR/PER ANESTHESIA; pH ABG 7.215 (7.350-7.450)
[2024-10-29 17:32] LABS: Site Drawn ARTLINE
[2024-10-29 17:49] LABS: Hematocrit 32.6 % (37.0-47.0); Hemoglobin 10.3 g/dL (12.0-15.0); Mean Corpuscular HGB Conc 31.6 g/dl (32-36); Mean Corpuscular Hemoglobin 29.5 pg (26-34); Mean Corpuscular Volume 93.4 fl (80-100); Mean Platelet Volume 9.6 fl (7.4-10.4); Platelet Count Result 185 k/mm3 (150-375); Red Blood Count 3.49 M/mm3 (4.2-5.4); Red Cell Distribution Width 14.7 % (11.5-14.5); White Blood Count 13.7 K/mm3 (4.5-10.0)
[2024-10-29 18:02] LABS: Alanine Aminotransferase 29 U/L (6-35); Alkaline Phosphatase 54 U/L (38-126); Anion Gap 4 mmol/L (4-12); Aspartate Amino Transferase 60 U/L (14-36); Bilirubin,Total 0.3 mg/dL (0.2-1.3); Blood Urea Nitrogen 11 mg/dL (7-17); Calcium 8.2 mg/dL (8.4-10.2); Carbon Dioxide 18 mmol/L (22-30); Chloride 111 mmol/L (98-107); Estimated CRCL calculation 69 ml/min; Estimated Glomerular Filt Rate > 60; Glucose 137 mg/dL (65-110); Potassium 4.1 mmol/L (3.4-5.0); Sodium 133 mmol/L (137-145)
[2024-10-29 18:14] LABS: INR 1.1; Prothrombin Time 14.8 Seconds (11.1-14.7)
[2024-10-29 18:20] LABS: Fibrinogen 300 mg/dl (215-510)
[2024-10-29] MEDS: PROPOFOL IV EMULSION 100 ML 1.91 MG IV CONT (18:30)
[2024-10-29 18:38] LABS: Triglycerides 94 mg/dL (<150)
--- NOTE | 2024-10-29 18:41 | P.OP_ITS ---
Procedure Note - Detailed Date of Procedure 10/29/24 Pre-op Diagnosis Chronic cholecystitis, choledocholithiasis Post-op Diagnosis Same (Chronic cholecystitis, choledocholithiasis, intra-abdominal hemorrhage) Procedure Performed Attempted laparoscopic cholecystectomy, open cholecystectomy with intraoperative cholangiogram, control hepatic vein hemorrhage Surgeon Wyatt Cardenas MD Pointer Machine Operator Kaylan RENDON Anesthesia General Indications Patient has dementia and flexion contractures of both her lower extremities. She has a chronic indwelling White catheter due to neurogenic bladder. She came to the emergency room with left lower quadrant pain. Her abdomen was diffusely tender. She was started on antibiotics and this improved. She had a CT scan of the abdomen and pelvis in the emergency room which showed a fluid collection in the area of the rectum as well as cholelithiasis and choledocholithiasis. Her liver enzymes were minimally elevated. She continued to complain of abdominal pain. But was much less tender. She had an MRCP which again suggested gallstones and common bile duct stones that were nonobstructing but with dilated intrahepatic and extrahepatic biliary tree. After discussion with Dr. Tomlin, gastroenterology, she is taken now to surgery for laparoscopic cholecystectomy with intraoperative cholangiogram. She has a history of multiple surgeries due to ulcers with a upper midline indented scar. Findings Attempts were made to gain access to the peritoneal cavity from different sites for laparoscopic cholecystectomy. We never could do this. Open cholecystectomy was then planned. This was exceptionally difficult as there really was no intraperitoneal cavity. All intra-abdominal structures were covered by at least a loose area older connection if not more dense adhesions. This included the liver small bowel colon stomach. Fortunately these could be dissected with blunt and sharp dissection. The gallbladder was chronically inflamed. It had pigmented stones within it. While dissecting the gallbladder off the liver, we encountered significant intrahepatic venous bleeding. This resulted in a 1000 cc of blood loss total but most of it was from this bleeding. This was eventual ly controlled with clamps and suturing. Patient was quite acidotic at the conclusion of the surgery. She was kept intubated and taken to the ICU postoperatively. Intraoperative cholangiogram showed some mobile opacities in the common bile duct thought to be sludge verses very small stones. The bile ducts both intrahepatic and extrahepatic were dilated. Description of Procedure Patient was taken to surgery and induced into general anesthesia. The abdomen is prepped and draped. Initial attempted entry into the peritoneal cavity was done in the left subcostal position using the varies needle. We were able to insufflate the abdomen. I then it and the place a 5 mm applied Medical optical trocar. Unfortunately, I could not get intraperitoneal location as there was area older tissue no matter what direction I attempted to maneuver the scope. I tried again with the 5 mm applied Medical optical trocar more cephalad and medial but the same result occurred. Went to the patient's right and tried a 3rd time to gain access to the peritoneal cavity in the right subcostal position. The same findings were noted. We abandoned laparoscopy and decided to proceed with open cholecystectomy with cholangiogram. The 2 left-sided trocar sites were closed with subcuticular 4-0 Monocryl skin suture. A right subcostal incision was made which incorporated the right-sided trocar site. We dissected through the rectus muscle and posterior rectus sheath. Eventually we exposed what appeared to be the peritoneum but, as mentioned above, there really was no access to a general peritoneal cavity. We did encounter the area older loose tissue that took the place of a general peritoneal space. We dissected this off the anterior abdominal wall above and below the incision. We also did some dissection over the surface of the liver so that it was free from the anterior abdominal wall. Dissection was bloody or than usual but no significant bleeding. The gallbladder was encased in adhesions and obviously thickened and firm. Every bit of the gallbladder itself had to be dissected either from area older tissue, adhesions, or the liver. The attachments to the liver were quite dense. Eventually the fundus of the gallbladder was dissected from the surrounding tissue such that it could be grasped. I then set about finding areas where I could dissect the gallbladder from the liver more easily. Other sections the gallbladder was very densely adherent to the liver. At these areas of dense adherence, there was quite a bit of bleeding which could be controlled but did make visualization and difficult. We were dissecting the gallbladder from the top down. The gallbladder was friable and came apart during traction. There were several stones that were removed. I continued dissecting the gallbladder and then in an area where the at attachment to the liver was particularly dense, we encountered significant venous bleed eating. This was attempted to be controlled with pressure but was difficult. We continued to dissect the gallbladder such that we could see the the air area of bleeding better after using suction and retraction, it was obvious that we were not going to be able to control the split eating without a large her incision.. I made a lot larger subcostal incision. A self retaining retractor was used. I also but had a headlight placed so that I could see deeper into the right upper quadrant with additional lighting. At this point, we were able to see the hepatic vein that was the source of bleeding. There was also some hepatic bleeding just posterior to the veins. Holding pressure on the venous injury, we used FloSeal and controlled the bleeding that was posterior to the vein. I then exposed the more lateral aspect of the vein and place some clips on this. This only helped marginally. Exposing the medial portion of the vein was more difficult. Eventually I did expose enough of it that it could be clamped. I then placed a clamp on the distal side of the injury and the bleeding was controlled. There was still some oozing from surrounding liver tissue. We used another flow seal and held pressure on this. This bleeding is an Vivian. To peer I then used 4-0 silk and placed a suture ligature around the more medial aspect of the venous injury. After being tied down, this helped but there was still some bleeding more laterally. A 2nd 4-0 silk suture ligature was then placed. Once this was tied down the bleeding stopped completely. I was able to take the clamp off the distal aspect of the injury. There was no bleeding once this was done as the clips placed previously were effective in controlling that. We then placed a remaining application of FloSeal on to the liver bed and held pressure. When we looked again all was hemostatic and dry. We continued our dissection of the gallbladder. It was dissected free from the top down. Common bile duct did appear dilated. We freed the gallbladder until the only remaining attachments were the cystic artery and cystic duct. I securely clipped the cystic artery and divided it. The cystic duct I dissected out to its full length. I placed a clip at its junction with the gallbladder. I then made cystic duct opening and passed the cholangiogram catheter into the cystic duct. We shot cine fluoroscopy cholangiograms. These suggested some sludge or very small stones in the common duct that were nonobstructing. There was flow of contrast into the duodenum. The intra and extrahepatic biliary tree was dilated. The ra diologists reviewed these films and communicated his findings with us intraoperatively. We removed the cholangiogram catheter and securely ligated the stump of the cystic duct. We then irrigated and inspected the right upper quadrant. All looked good with no evidence of further bleeding or bile leak cage. A 19 Malian David drain was then placed in the subhepatic space and brought out below the right subcostal incision. It was positioned appropriately and then the drain was sutured in place with 2-0 silk. We took a final check of the right subcostal area. All looked good. We then closed the wound in layers with bidirectional running 0 Vicryl for both the posterior rectus fascia and then the anterior rectus fascia. Janice's fascia was closed with interrupted subcutaneous sutures. The skin was closed with wide avery. The drain was placed to bulb suction. Patient was left intubated and taken directly to the intensive care unit. Sponge and needle counts were correct x2. Estimated Blood Loss -1,000 Drains Yes (Nineteen Malian David drain right upper quadrant) Packing No Pathology Yes (Gallbladder) Complications Other complications (Intra-abdominal hemorrhage from hepatic vein) Condition Critical (Transferred intubated to the intensive care unit from the operating room) Disposition ICU [facility] Billing Surgery - Charge Forward: Surgery Billing (Attempted laparoscopic cholecystectomy, open cholecystectomy with intraoperative cholangiogram. Add 22 modifier for increased difficulty)
[2024-10-29] MEDS: FENTANYL 2,500MCG/NS250ML(*CRX 2,500 MCG/250 ML BAG IV CONT (19:23)
[2024-10-29] MEDS: MIDAZOLAM 100MG/NS 100ML(*CRX) 100 MG/100 ML BAG IV CONT (19:25)
[2024-10-29] MEDS: LACTATED RINGERS 1,000 ML 999 ML IV CONT ×2 (19:26→20:21)
[2024-10-29] MEDS: NOREPINEPHRINE 8 MG/D5W 250 ML 8 MG/250 ML BAG 9.38 MG IV CONT (19:33)
[2024-10-29] MEDS: HYDROCORTISONE SODIUM SUCCINATE 100 MG/2 ML VIAL IV PUSH (20:04)
[2024-10-29] MEDS: VASOPRESSIN INJ 100 UNITS in DEXTROSE 5% 95 ML IV CONT (20:05)
[2024-10-29 20:07] LABS: Alveolar/Arterial O2 Gradient 241.5 mmHg; Base Excess ABG -8.9 mEq/l (+/-2.0); Fractional Inspired Oxygen 100 %; HCO3 ABG 15.6 mEq/l (22.0-26.0); Oxygen Content ABG 12.6 %vol (16.0-22.0); Oxygen Saturation ABG 99.8 % (95.0-100.0); Oxyhemoglobin 99.3 % THb (90.0-100.0); PCO2 ABG 28.1 mmHg (35.0-45.0); PO2 ABG 443.4 mmHg (80.0-100.0); PO2 FiO2 Ratio Arterial Blood 4.43 %; Total Hemoglobin 8.1 g/dL (12.0-18.0); pH ABG 7.361 (7.350-7.450)
[2024-10-29 20:08] LABS: Arterial Blood Gas PEEP 5 cmH2O; Arterial Blood Gas Tidal Volume 400 ml; Arterial Blood Gas Vent Mode CMV; Arterial Blood Gas Ventilator rate 12 /MIN; Device VENTILATOR; Site Drawn ARTLINE
[2024-10-29] MEDS: PHENYLEPHRINE HCL INJ 50 MG in SODIUM CHLORIDE 0.9% IV 245 ML 30 ML IV CONT (20:16)
[2024-10-29 20:29] LABS: Basophils Absolute Auto 0.1 K/mm3 (0.0-0.1); Basophils Percent Auto 0.3 % (0.2-1.2); Eosinophils Percent Auto 0.2 % (0-4.4); Hematocrit 23.6 % (37.0-47.0); Hemoglobin 7.5 g/dL (12.0-15.0); Immature Granulocyte Absolute 0.19 K/mm3 (0.00-0.031); Immature Granulocyte Percent A 1.2 % (0-0.5); Lymphocytes Absolute Auto 3.26 K/mm3 (0.9-3.2); Lymphocytes Percent Auto 20.1 % (18.3-44.2); Mean Corpuscular HGB Conc 31.8 g/dl (32-36); Mean Corpuscular Hemoglobin 29.6 pg (26-34); Mean Corpuscular Volume 93.3 fl (80-100); Mean Platelet Volume 9.8 fl (7.4-10.4); Monocytes Absolute Auto 0.8 K/mm3 (0.1-0.6); Monocytes Percent Auto 4.7 % (2.6-8.5); Neutrophils Absolute Auto 11.9 K/mm3 (1.3-6.7); Neutrophils Percent Auto 73.5 % (45.5-73.1); Platelet Count Result 244 k/mm3 (150-375); Red Blood Count 2.53 M/mm3 (4.2-5.4); Red Cell Distribution Width 14.9 % (11.5-14.5); White Blood Count 16.2 K/mm3 (4.5-10.0)
[2024-10-29 20:48] LABS: Lactic Acid Reflex 4.7 mmol/L (0.7-2.0)
--- NOTE | 2024-10-29 21:08 | PC.NURSE ---
In patient report blood pressure was noted to be low and dropping. Multiple calls made to dr Loco resulting in patient being maxed on levophed, vasopressin, and phenylephrine. 105ml out of HUMAIRA drain. Labs drawn and blood counts dropped. 2 units PRBC ordered, IV antibiotics to start. Attempted to call sister, no answer at [facility]. Call placed to Dr Cardenas, he is currently in surgery.
[2024-10-29] MEDS: SODIUM CHLORIDE 0.9% IV 1,000 ML 999 ML IV CONT (21:15)
[2024-10-29 21:47] LABS: INR 1.3; Prothrombin Time 16.7 Seconds (11.1-14.7)
[2024-10-29 21:48] LABS: Partial Thromboplastin Time 36.6 Seconds (22.3-36.8)
[2024-10-29] MEDS: PIPERACILLN/TAZ 3.375GM/NS50ML 3.375 GM/50 ML BAG IVPB (22:26)
[2024-10-29 22:30] LABS: Reflex Lactic Acid Yes or No Add Lactic
[2024-10-29] MEDS: SODIUM BICARBONATE 8.4% 50 MEQ/50 ML SYRINGE 100 MEQ IV PUSH (23:20)
[2024-10-29 23:35] LABS: Hemoglobin 9.6 g/dL (12.0-15.0); Mean Corpuscular HGB Conc 33.1 g/dl (32-36); Mean Corpuscular Volume 87.6 fl (80-100); Mean Platelet Volume 9.9 fl (7.4-10.4); Platelet Count Result 146 k/mm3 (150-375); Red Blood Count 3.31 M/mm3 (4.2-5.4); Red Cell Distribution Width 14.8 % (11.5-14.5); White Blood Count 23.2 K/mm3 (4.5-10.0)
[2024-10-29] MEDS: SODIUM CHLORIDE 0.9% IV 250 ML 30 ML IV CONT (23:39)
[2024-10-29] MEDS: LACTATED RINGERS 1,000 ML 100 ML IV CONT (23:39)
[2024-10-29] MEDS: AMOXICILLIN/CLAVULANATE K 875-125 MG TAB 1 TABLET PO (23:40)
[2024-10-29] MEDS: MONTELUKAST SODIUM 10 MG TABLET PO (23:40)
[2024-10-29] MEDS: MIRTAZAPINE 15 MG TABLET PO (23:40)
[2024-10-29] MEDS: PANTOPRAZOLE SOD SESQUIHYDRATE 20 MG TAB PO (23:40)
[2024-10-29] MEDS: SIMVASTATIN 20 MG TABLET PO (23:41)
[2024-10-29] MEDS: CENTRAL LINE FLUSH 10 ML IV PUSH (23:41)
[2024-10-29 23:44] LABS: Magnesium 1.3 mg/dL (1.6-2.3)
[2024-10-29 23:49] LABS: Hemoglobin 10.2 g/dL (12.0-15.0); Mean Corpuscular HGB Conc 32.9 g/dl (32-36); Mean Corpuscular Hemoglobin 29.1 pg (26-34); Mean Corpuscular Volume 88.6 fl (80-100); Mean Platelet Volume 9.7 fl (7.4-10.4); Platelet Count Result 153 k/mm3 (150-375)
[2024-10-29 23:50] LABS: Lactic Acid 7.1 mmol/L (0.7-2.0)
[2024-10-30] VITALS (90 sets, daily range): BP systolic 62–205; BP diastolic 52–93; PULSE 55–153; RESP 11–26; TEMP 36–37.3; O2SAT 92–100
[2024-10-30 00:10] LABS: Partial Thromboplastin Time 37.6 Seconds (22.3-36.8)
[2024-10-30 00:11] LABS: Fibrinogen 171 mg/dl (215-510)
[2024-10-30 00:12] LABS: INR 1.4; Prothrombin Time 17.4 Seconds (11.1-14.7)
[2024-10-30 00:14] LABS: D Dimer 2.15 ug/mL (<0.48)
[2024-10-30] MEDS: NOREPINEPHRINE 8 MG/D5W 250 ML 8 MG/250 ML BAG 46.88 MG IV CONT (00:19)
[2024-10-30] MEDS: MAGNESIUM SULF 2 GM/WATER 50ML 2 GM/50 ML BAG IVPB (01:00)
--- NOTE | 2024-10-30 01:06 | PC.NURSE ---
CXR ordered due to abnormal coarse/rubbing sound on auscultation of lungs to check for ET tube position. Per CXR ET in right main bronchus. Received order fro Sindy SAAVEDRA to pull back ET tube 3-3.5cm. Jimena ARCEO notified.
[2024-10-30] MEDS: PHENYLEPHRINE HCL INJ 50 MG in SODIUM CHLORIDE 0.9% IV 245 ML 9 ML IV CONT (02:35)
[2024-10-30] MEDS: SODIUM CHLORIDE 0.9% IV 250 ML 30 ML IV CONT (02:48)
--- NOTE | 2024-10-30 02:58 | PC.NURSE ---
0040 Lactic acid and DIC panel results called to Dr Loco. 1 unit of FFP and cryo ordered. 2G magnesium ordered for mag of 1.3.
[2024-10-30] MEDS: PIPERACILLN/TAZ 3.375GM/NS50ML 3.375 GM/50 ML BAG IVPB ×4 (03:10→21:00)
[2024-10-30] MEDS: HYDROCORTISONE SODIUM SUCCINATE 100 MG/2 ML VIAL IV PUSH ×3 (03:21→20:42)
[2024-10-30 04:58] LABS: Hematocrit 27.4 % (37.0-47.0); Mean Corpuscular HGB Conc 32.8 g/dl (32-36); Mean Corpuscular Hemoglobin 29.5 pg (26-34); Mean Corpuscular Volume 89.8 fl (80-100); Mean Platelet Volume 10.2 fl (7.4-10.4); Platelet Count Result 104 k/mm3 (150-375); Red Blood Count 3.05 M/mm3 (4.2-5.4); Red Cell Distribution Width 15.5 % (11.5-14.5); White Blood Count 23.9 K/mm3 (4.5-10.0)
[2024-10-30 05:10] LABS: Alanine Aminotransferase 135 U/L (6-35); Albumin Level 2.4 g/dL (3.5-5.1); Alkaline Phosphatase 66 U/L (38-126); Anion Gap 10 mmol/L (4-12); Aspartate Amino Transferase 280 U/L (14-36); Bilirubin,Total 0.6 mg/dL (0.2-1.3); Blood Urea Nitrogen 17 mg/dL (7-17); Calcium 7.5 mg/dL (8.4-10.2); Carbon Dioxide 18 mmol/L (22-30); Chloride 107 mmol/L (98-107); Estimated CRCL calculation 49 ml/min; Estimated Glomerular Filt Rate > 60; Glucose 247 mg/dL (65-110); Magnesium 2.2 mg/dL (1.6-2.3); Potassium 3.6 mmol/L (3.4-5.0); Sodium 135 mmol/L (137-145)
[2024-10-30 05:11] LABS: INR 1.5; Lactic Acid Reflex 4.6 mmol/L (0.7-2.0); Prothrombin Time 18.4 Seconds (11.1-14.7)
[2024-10-30 05:12] LABS: Partial Thromboplastin Time 34.8 Seconds (22.3-36.8)
[2024-10-30 05:23] LABS: Band Neutrophils Percent 8 % (0-6); Lymphocytes Absolute Manual 1.19 K/mm3 (1.1-4.5); Monocytes Absolute Manual 1.91 K/mm3 (0.1-0.90); Monocytes Percent Manual 8 % (3-9); Neutrophils Absolute Manual 20.79 K/mm3 (1.7-7.2); Neutrophils Percent Manual 79 % (46-73); Platelet Estimate Slightly Decreased (Adequate); Total Cells Counted 100
[2024-10-30 05:24] LABS: Schistocytes None Seen
[2024-10-30] MEDS: CENTRAL LINE FLUSH 10 ML IV PUSH ×3 (05:39→22:00)
--- NOTE | 2024-10-30 08:06 | WPDANESACPN ---
Arterial Cath Proc Note Consent: I have discussed with the patient/family/POA, the non-emergent placement of an arterial catheter, including its clinical necessity/indication and associated potential risks and complications. The patient/family/POA and/or understand(s) and acknowledge(s) the need to proceed with the arterial catheter insertion as an important element of the patient's clinical management. Given emergent patient conditions, temporal constraints may have precluded informed consent. Time-Out: A pre-procedural Time-Out was completed immediately before starting the procedure and confirmed: Patient Identification, Site, Procedure, Patient Position and the Availability of Requisite Equipment. Performed in OR by Dr. Price documented in spectrum. Procedure Note Patient position: supine Insertion site: left radial Method of insertion: ultrasound-guided Antisqueak Filler prep: sterile gloves, mask and hat Site prep: chlorahexadine and sterile drape Skin anesthesia: general anesthesia Gauge: 20 gauge Length (cm): 12 cm Closure/Dressing: antimicrobial disc and tegaderm Complications: None immediately noted/suspected.
[2024-10-30] MEDS: levETIRAcetam IV 750 MG in DEXTROSE 5% 100 ML 430 MG IVPB ×2 (09:08→20:56)
[2024-10-30] MEDS: SODIUM BICARBONATE 8.4% 50 MEQ/50 ML SYRINGE IV PUSH (09:08)
[2024-10-30] MEDS: PANTOPRAZOLE SODIUM IV 40 MG VIAL IV PUSH ×2 (09:11→20:27)
[2024-10-30] MEDS: KCL 40 MEQ/WATER 100 ML 100 ML 25 ML IVPB (09:12)
--- NOTE | 2024-10-30 09:15 | PCRCNOTE ---
ET tube advanced 2 cm to 22
[2024-10-30] MEDS: NOREPINEPHRINE 8 MG/D5W 250 ML 8 MG/250 ML BAG 18.75 MG IV CONT (09:28)
[2024-10-30] MEDS: MINERAL OIL/WHITE PETROLATUM OINTMENT 1 APPLIC EACH EYE ×2 (09:32→21:00)
--- NOTE | 2024-10-30 11:14 | P.CONIN_ITS ---
Assessment and Plan Assessment and plan (1) Cholelithiasis with choledocholithiasis: Code(s): K80.70 - Calculus of gallbladder and bile duct without cholecystitis without obstruction Status: Acute Assessment and Plan: Patient patient with choledocholithiasis and cholecystitis -10/29: Status post: Attempted laparoscopic cholecystectomy, open cholecystectomy with intraoperative cholangiogram, control hepatic vein hemorrhage -EBL 1000 ml -currently NPO -surgery following the patient (2) Septic shock: Code(s): A41.9 - Sepsis, unspecified organism; R65.21 - Severe sepsis with septic shock Status: Acute Assessment and Plan: Septic shock : Etiology postoperatively, he decrease resuscitation -patient received a total of 5 L of IV fluids in fluid resuscitation -start albumin for intravascular volume expansion -is central line was inserted the OR along with arterial line -continue Levophed, maintain SBP > 100 mmHg or MAP > 65 mmHg at all times for adequate end organ perfusion -currently off vasopressin and Orlin-Synephrine - continue stress dose steroid -continue Zosyn (10/29) -continue to trend lactic acid (3) Acute respiratory failure: Code(s): J96.00 - Acute respiratory failure, unspecified whether with hypoxia or hypercapnia Status: Acute Assessment and Plan: Postoperative acute respiratory failure, patient was intubated during the procedure and remained intubated and transferred to the ICU for further manage -currently on CMV mode of ventilation, peep of 5, 30% FiO2 -ABGs and chest x-ray reviewed, ventilator adjusted -sedated with fentanyl and Versed infusion, maintain RASS of 0 to -2, daily SBT and SAT -given patient received significant amount IV fluids for volume resuscitation and multiple be units of blood products, discussed with surgery, will keep patient intubated today due to fluid shifts and third-spacing -will try SBT in a.m. and evaluate for extubation (4) Postoperative anemia due to acute blood loss: Code(s): D62 - Acute posthemorrhagic anemia Status: Acute Assessment and Plan: Intraoperative hemorrhage with approximately 1000 mL in blood loss -status post 4 units of packed RBCs, 2 units of FFP and 1 unit of cryoprecipitate -continue to monitor CBC (5) Elevated LFTs: Code(s): R79.89 - Other specified abnormal findings of blood chemistry Status: Acute Assessment and Plan: Elevated LFTs likely related to hypotension and shock liver -will continue to trend Plan DVT prophylaxis: SCDs, will discuss with surgery regarding chemoprophylaxis since patient had intraoperative hemorrhage requiring multiple units of packed RBCs Stress ulcer prophylaxis: Protonix IV q.12 hours Nutrition: NPO, discussed with surgery Code Status: Do not resuscitate Critical Care Time Spent: 77 minutes Due to a high probability of clinically significant, life threatening deterioration, the patient required my highest level of preparedness to intervene emergently and I personally spent this critical care time directly and personally managing the patient. This critical care time included obtaining a history; examining the patient; pulse oximetry; ordering and review of studies; arranging urgent treatment with development of a management plan; evaluation of patient's response to treatment; frequent reassessment; and discussions with other providers. It was exclusive of separately billable procedures and treating other patients and teaching time. Please see Assessment and Plan section and the rest of the note for further information on patient assessment and treatment This dictation may have been done utilizing a voice recognition system. Attempts have been made to correct errors. However, there may be uncorrected grammatical, spelling, and recognitions errors present. [employer] Consult Note Consult date: 10/30/24 Reason for consult: Septic shock, acute respiratory failure, anemia secondary to bleeding during procedure, status post multiple units of blood products, lactic acidosis HPI: Patsy Hugo is a 64 year old female with past medical history of seizure, status post CVA, presence of IVC filter, essential hypertension, neurogenic bladder, history of DVTs, CAD, chronic anemia, GERD, ulcerative colitis, hyperlipidemia, chronic indwelling catheter, dementia, intellectual disability, presented from the senior living on 10/[facility]24 with complains of abdominal pain. Patient was found to have have choledocholithiasis and cholelithiasis. MRCP did show gallstones and choledocholithiasis. Patient was taken for EGD as laparoscopic cholecystectomy which turned into an open cholecystectomy with intra operative cholangiogram and control of hepatic vein hemorrhage. EBL approximately 1000 mL. Received a if units of IV fluids in the OR. Patient was transferred to the ICU for further management. Patient went into Received his total of 4 units of packed RBCs, 2 units of fresh frozen plasma, 1 unit of cryoprecipitate. Upon arrival to the ICU, patient was hypotensive, requiring Levophed, which escalated to addition vasopressin and Orlin-Synephrine. Patient received additional IV fluid bolus x3 L, albumin and blood products. She was started on stress dose steroids. Initial lactic acids were trending up, after the fluids and blood products lactic acid started to improve. Patien seen and examined this morning in the ICU. She is remains intubated, on CMV mode of ventilation, peep of 5, 30% FiO2. Sedated with fentanyl and Versed infusion. Patient opens her eyes, follows simple commands in upper extremities, lower extremities contract, patient does not to questions appropriately. Urine output has been improving. HUMAIRA drain with 220 mL overnight see. Patient nods no to any pain Review of Systems 2 Review of Systems: ROS unobtainable: Yes unobtainable due to endotracheal tube, unobtainable due to medical condition and unobtainable due to mental status [facility] Past Medical History Medical History (Updated 10/30/24 @ 11:50 by Zhanna Loco MD) Anemia Cholelithiasis with choledocholithiasis Seizure as late effect of cerebrovascular accident (CVA) Presence of IVC filter Hypertension Neurogenic bladder Deep venous thrombosis Coronary artery disease Poorly documented and patient denies. Anxiety Chronic anemia Arthritis Gastroesophageal reflux disease Ulcerative colitis Hyperlipidemia Dementia Chronic indwelling White catheter Surgical History Surgical History History of colon resection Family History Family History Other Family history unknown Social History Social History Social History: Surrogate decision maker: Amanda Parker, sibling. Code status: Full code. Smoking status: Unknown if ever smoked Alcohol intake: never Substance use: never Substance use type: does not use Do You Feel Safe in your Home?: Yes Lack of Transportation: No Lack of Food: Never True Current Housing: I Have Housing Concerned About Future Housing: No Difficulty Paying Gas/Electric Bills: No Difficulty Paying for Meds: No Currently Unemployed: No Education: Don't Know Difficulty w/ Childcare or Family Care: No Additional living arrangements comments: The patient is a resident at [facility]. Additional occupation/education comments: Disabled. Spiritual care concerns: No Meds Home Medications and Allergies Home Medications ?Medication ?Instructions ?Recorded ?Confirmed ?Type hydroxyzine pamoate 25 mg capsule 25 mg PO BID 03/07/21 10/24/24 History mirtazapine 15 mg tablet 15 mg PO HS 03/07/21 10/24/24 History montelukast 10 mg tablet 10 mg PO DAILY 03/07/21 10/24/24 History simvastatin 20 mg tablet 20 mg PO HS 03/07/21 10/24/24 History sucralfate 1 gram tablet 1 g PO BID 03/07/21 10/24/24 History Lactobacillus acidophilus 1 cap PO DAILY 03/08/21 10/24/24 History (Acidophilus capsule) acetaminophen 500 mg capsule 1,000 mg PO Q6H PRN Pain 03/08/21 10/24/24 History ascorbate calcium (vitamin C) 500 500 mg PO BID 03/08/21 10/24/24 History mg tablet ergocalciferol (vitamin D2) 25,000 50,000 unit PO WEEKLY 03/08/21 10/24/24 History unit capsule multivitamin with minerals (Daily 1 tablet PO DAILY 03/08/21 10/24/24 History Multivitamin-Minerals tablet) potassium chloride 10 mEq 10 meq PO BID 09/16/24 10/24/24 History tablet,extended release docusate sodium 100 mg capsule 100 mg PO BID constipation #60 09/21/24 10/24/24 Rx caps ergocalciferol (vitamin D2) 50 mcg 100 mcg PO DAILY 09/27/24 10/24/24 History (2,000 unit) tablet lactulose 10 gram/15 mL oral 20 g (30 mL) PO Q12H #1,800 mL 10/12/24 10/24/24 Rx solution levetiracetam 250 mg tablet 750 mg (3 x 250 mg) PO Q12HR #180 10/12/24 10/24/24 Rx tabs magnesium oxide 400 mg (241.3 mg 400 mg PO DAILY #60 tabs 10/12/24 10/24/24 Rx magnesium) tablet oxycodone 5 mg tablet 5 mg PO Q4H PRN Pain Rated 7-10 10/12/24 10/24/24 Rx #15 tabs pantoprazole 20 mg tablet,delayed 20 mg PO Q12HR #60 tabs 10/12/24 10/24/24 Rx release (Protonix) metoclopramide HCl 10 mg tablet 10 mg PO Q6H PRN nausea and 10/13/24 10/24/24 Rx (Reglan) vomiting #60 tabs bisacodyl 10 mg rectal suppository 10 mg RECTAL Q12H PRN constipation 10/24/24 10/24/24 History irbesartan 75 mg tablet 75 mg PO DAILY 10/24/24 10/24/24 History sodium phosphates 19 gram-7 118 ml RECTAL DAILY PRN 10/24/24 10/24/24 History gram/118 mL enema (Fleet Enema) constipation Allergies Allergy/AdvReac Type Severity Reaction Status Date / Time lorazepam Allergy Unknown Verified 10/24/24 19:22 Vital Signs Vital Signs - 24 hr 10/29/24 12:40 10/29/24 18:29 10/29/24 18:30 Temperature 98.5 F Pulse Rate 73 123 H Respiratory Rate 18 23 H Blood Pressure 118/63 Pulse Oximetry 100 100 Oxygen Delivery Room Air Mechanical Ventilation Fraction of Inspired Oxygen 100 10/29/24 18:30 10/29/24 18:40 10/29/24 18:45 Temperature Pulse Rate 138 H 137 H Respiratory Rate 25 H 16 Blood Pressure Pulse Oximetry Oxygen Delivery Fraction of Inspired Oxygen 100 10/29/24 19:00 10/29/24 19:00 10/29/24 19:15 Temperature Pulse Rate 129 H 129 H 146 H Respiratory Rate 14 14 22 H Blood Pressure 54/44 L 77/61 L Pulse Oximetry 100 100 Oxygen Delivery Fraction of Inspired Oxygen 10/29/24 19:23 10/29/24 19:25 10/29/24 19:30 Temperature Pulse Rate 141 H 141 H 141 H Respiratory Rate 30 H 22 H 27 H Blood Pressure 82/57 L Pulse Oximetry 100 Oxygen Delivery Fraction of Inspired Oxygen 10/29/24 19:33 10/29/24 19:36 10/29/24 19:45 Temperature Pulse Rate 138 H 139 H 147 H Respiratory Rate 23 H Blood Pressure 60/49 L 58/48 L 72/57 L Pulse Oximetry 100 Oxygen Delivery Fraction of Inspired Oxygen 10/29/24 20:00 10/29/24 20:00 10/29/24 20:00 Temperature Pulse Rate 137 H 137 H 137 H Respiratory Rate 23 H 23 H Blood Pressure 60/48 L Pulse Oximetry Oxygen Delivery Fraction of Inspired Oxygen 10/29/24 20:00 10/29/24 20:00 10/29/24 20:00 Temperature Pulse Rate 136 H Respiratory Rate 24 H Blood Pressure 57/45 L Pulse Oximetry 100 100 Oxygen Delivery Mechanical Ventilation Fraction of Inspired Oxygen 100 100 10/29/24 20:00 10/29/24 20:05 10/29/24 20:12 Temperature Pulse Rate 135 H 136 H Respiratory Rate Blood Pressure 72/55 L Pulse Oximetry 100 Oxygen Delivery Mechanical Ventilation Fraction of Inspired Oxygen 60 10/29/24 20:15 10/29/24 20:16 10/29/24 20:17 Temperature Pulse Rate 138 H 141 H 140 H Respiratory Rate 22 H Blood Pressure 59/48 L 63/53 L 60/49 L Pulse Oximetry 96 Oxygen Delivery Fraction of Inspired Oxygen 10/29/24 20:30 10/29/24 20:45 10/29/24 21:00 Temperature Pulse Rate 142 H 133 H 128 H Respiratory Rate 25 H 23 H 22 H Blood Pressure 63/51 L 88/63 L 90/63 L Pulse Oximetry 96 96 98 Oxygen Delivery Fraction of Inspired Oxygen 10/29/24 21:20 10/29/24 21:30 10/29/24 21:45 Temperature Pulse Rate 147 H 145 H 138 H Respiratory Rate 25 H 27 H 26 H Blood Pressure 42/35 L 44/37 L 64/50 L Pulse Oximetry 98 77 L 98 Oxygen Delivery Fraction of Inspired Oxygen 10/29/24 21:54 10/29/24 22:00 10/29/24 22:00 Temperature 93.9 F L Pulse Rate 140 H 135 H 135 H Respiratory Rate 21 H 27 H 27 H Blood Pressure 48/40 L Pulse Oximetry 79 L Oxygen Delivery Fraction of Inspired Oxygen 10/29/24 22:00 10/29/24 22:00 10/29/24 22:00 Temperature Pulse Rate 135 H 135 H 135 H Respiratory Rate Blood Pressure 66/51 L 40/25 L 40/25 L Pulse Oximetry Oxygen Delivery Fraction of Inspired Oxygen 10/29/24 22:00 10/29/24 22:00 10/29/24 22:05 Temperature 93.9 F L 93.9 F L Pulse Rate 135 H 135 H 135 H Respiratory Rate 26 H 27 H Blood Pressure 80/59 L 103/69 Pulse Oximetry 97 96 Oxygen Delivery Fraction of Inspired Oxygen 10/29/24 22:11 10/29/24 22:15 10/29/24 22:22 Temperature 94 F L 94 F L Pulse Rate 134 H 135 H 120 H Respiratory Rate 27 H 27 H 19 Blood Pressure 109/72 79/64 L 129/81 Pulse Oximetry 100 100 100 Oxygen Delivery Fraction of Inspired Oxygen 10/29/24 22:30 10/29/24 22:30 10/29/24 22:30 Temperature 93.8 F L 93.9 F L Pulse Rate 128 H 123 H 131 H Respiratory Rate 21 H 16 21 H Blood Pressure 139/85 94/68 L 125/82 Pulse Oximetry 99 97 99 Oxygen Delivery Fraction of Inspired Oxygen 10/29/24 22:33 10/29/24 22:45 10/29/24 22:48 Temperature 93.9 F L Pulse Rate 131 H 126 H Respiratory Rate 21 H 18 Blood Pressure 90/66 L Pulse Oximetry 97 Oxygen Delivery Fraction of Inspired Oxygen 10/29/24 22:56 10/29/24 23:00 10/29/24 23:05 Temperature 93.9 F L 94.0 F L Pulse Rate 120 H 120 H Respiratory Rate 18 18 Blood Pressure 104/73 102/74 Pulse Oximetry 97 97 Oxygen Delivery Fraction of Inspired Oxygen 10/29/24 23:14 10/29/24 23:15 10/29/24 23:20 Temperature 94.6 F L Pulse Rate 113 H 111 H Respiratory Rate 19 Blood Pressure 56/47 L Pulse Oximetry 98 98 Oxygen Delivery Mechanical Ventilation Fraction of Inspired Oxygen 60 10/29/24 23:30 10/29/24 23:30 10/29/24 23:34 Temperature Pulse Rate 88 121 H 133 H Respiratory Rate 17 Blood Pressure 202/102 H 159/81 H 186/86 H Pulse Oximetry 98 Oxygen Delivery Fraction of Inspired Oxygen 10/29/24 23:35 10/29/24 23:45 10/29/24 23:50 Temperature 95.2 F L 96.0 F L Pulse Rate 123 H Respiratory Rate 20 Blood Pressure 140/85 Pulse Oximetry 100 Oxygen Delivery Fraction of Inspired Oxygen 10/30/24 00:00 10/30/24 00:00 10/30/24 00:00 Temperature Pulse Rate 137 H 137 H 137 H Respiratory Rate 19 19 Blood Pressure 101/70 Pulse Oximetry Oxygen Delivery Fraction of Inspired Oxygen 10/30/24 00:00 10/30/24 00:00 10/30/24 00:00 Temperature Pulse Rate 141 H 134 H Respiratory Rate 20 Blood Pressure 81/60 L Pulse Oximetry 97 Oxygen Delivery Fraction of Inspired Oxygen 60 10/30/24 00:00 10/30/24 00:15 10/30/24 00:19 Temperature Pulse Rate 140 H 139 H Respiratory Rate 20 Blood Pressure 62/52 L 78/52 L Pulse Oximetry 98 97 Oxygen Delivery Mechanical Ventilation Fraction of Inspired Oxygen 60 10/30/24 00:19 10/30/24 00:27 10/30/24 00:30 Temperature 96.8 F L Pulse Rate 139 H 138 H Respiratory Rate Blood Pressure 78/52 L 83/63 L Pulse Oximetry Oxygen Delivery Fraction of Inspired Oxygen 10/30/24 00:30 10/30/24 00:44 10/30/24 00:45 Temperature Pulse Rate 139 H 144 H 144 H Respiratory Rate 19 18 Blood Pressure 82/62 L 80/62 L 80/62 L Pulse Oximetry 96 95 Oxygen Delivery Fraction of Inspired Oxygen 10/30/24 01:00 10/30/24 01:15 10/30/24 01:28 Temperature Pulse Rate 143 H 147 H 151 H Respiratory Rate 18 18 Blood Pressure 87/67 L 84/65 L Pulse Oximetry 95 95 96 Oxygen Delivery Mechanical Ventilation Fraction of Inspired Oxygen 60 10/30/24 01:30 10/30/24 02:00 10/30/24 02:00 Temperature 97.1 F L Pulse Rate 153 H 148 H Respiratory Rate 19 18 Blood Pressure 78/63 L Pulse Oximetry 97 Oxygen Delivery Fraction of Inspired Oxygen 10/30/24 02:00 10/30/24 02:00 10/30/24 02:06 Temperature 97.5 F L 97.1 F L Pulse Rate 147 H 148 H 147 H Respiratory Rate 18 18 Blood Pressure 91/72 L 88/70 L Pulse Oximetry 96 94 Oxygen Delivery Fraction of Inspired Oxygen 10/30/24 02:10 10/30/24 02:18 10/30/24 02:20 Temperature 97.1 F L 98.1 F 98.1 F Pulse Rate 141 H 98 87 Respiratory Rate 18 19 19 Blood Pressure 102/76 173/86 H 177/84 H Pulse Oximetry 97 99 100 Oxygen Delivery Fraction of Inspired Oxygen 10/30/24 02:20 10/30/24 02:20 10/30/24 02:24 Temperature 97.5 F L Pulse Rate 130 H 78 78 Respiratory Rate 17 Blood Pressure 161/88 H 161/88 H 205/88 H Pulse Oximetry 100 Oxygen Delivery Fraction of Inspired Oxygen 10/30/24 02:25 10/30/24 02:25 10/30/24 02:30 Temperature Pulse Rate 85 85 100 Respiratory Rate Blood Pressure 186/88 H 186/88 H 202/87 H Pulse Oximetry Oxygen Delivery Fraction of Inspired Oxygen 10/30/24 02:30 10/30/24 02:31 10/30/24 02:35 Temperature 97.5 F L 97.5 F L Pulse Rate 84 102 H Respiratory Rate 17 Blood Pressure 191/86 H 160/81 H Pulse Oximetry 100 Oxygen Delivery Fraction of Inspired Oxygen 10/30/24 02:35 10/30/24 02:35 10/30/24 02:45 Temperature Pulse Rate 95 95 105 H Respiratory Rate Blood Pressure 174/83 H 174/83 H 149/79 H Pulse Oximetry Oxygen Delivery Fraction of Inspired Oxygen 10/30/24 02:45 10/30/24 02:55 10/30/24 03:00 Temperature Pulse Rate 106 H 148 H 116 H Respiratory Rate 18 18 19 Blood Pressure 140/76 96/68 L Pulse Oximetry 98 99 Oxygen Delivery Fraction of Inspired Oxygen 10/30/24 03:02 10/30/24 03:15 10/30/24 03:30 Temperature Pulse Rate 118 H 115 H 109 H Respiratory Rate 18 17 Blood Pressure 85/56 L 94/61 L 96/61 L Pulse Oximetry 98 99 Oxygen Delivery Fraction of Inspired Oxygen 10/30/24 03:45 10/30/24 04:00 10/30/24 04:00 Temperature Pulse Rate 107 H 122 H 99 Respiratory Rate 17 Blood Pressure 126/72 131/75 Pulse Oximetry 92 Oxygen Delivery Fraction of Inspired Oxygen 10/30/24 04:00 10/30/24 04:00 10/30/24 04:00 Temperature Pulse Rate 99 99 99 Respiratory Rate 16 16 Blood Pressure 131/75 Pulse Oximetry Oxygen Delivery Fraction of Inspired Oxygen 10/30/24 04:00 10/30/24 04:00 10/30/24 04:00 Temperature Pulse Rate 99 90 90 Respiratory Rate 17 Blood Pressure 131/75 128/74 Pulse Oximetry 99 Oxygen Delivery Fraction of Inspired Oxygen 10/30/24 04:15 10/30/24 04:30 10/30/24 04:42 Temperature Pulse Rate 113 H 125 H 102 H Respiratory Rate 18 19 Blood Pressure 129/79 110/72 130/77 Pulse Oximetry 100 100 Oxygen Delivery Fraction of Inspired Oxygen 10/30/24 04:45 10/30/24 05:00 10/30/24 05:08 Temperature Pulse Rate 105 H 101 H 96 Respiratory Rate 16 16 Blood Pressure 129/75 132/81 146/76 H Pulse Oximetry 100 100 Oxygen Delivery Fraction of Inspired Oxygen 10/30/24 05:15 10/30/24 05:30 10/30/24 05:45 Temperature Pulse Rate 99 95 88 Respiratory Rate 16 16 Blood Pressure 107/69 108/69 Pulse Oximetry 100 100 100 Oxygen Delivery Mechanical Ventilation Fraction of Inspired Oxygen 50 10/30/24 06:00 10/30/24 06:00 10/30/24 06:00 Temperature Pulse Rate 87 86 86 Respiratory Rate 16 16 Blood Pressure 131/76 Pulse Oximetry Oxygen Delivery Fraction of Inspired Oxygen 10/30/24 06:00 10/30/24 06:00 10/30/24 06:00 Temperature Pulse Rate 87 86 87 Respiratory Rate Blood Pressure 130/75 130/75 Pulse Oximetry Oxygen Delivery Fraction of Inspired Oxygen 10/30/24 06:00 10/30/24 06:12 10/30/24 06:30 Temperature Pulse Rate 87 100 Respiratory Rate 14 13 Blood Pressure 129/76 130/78 Pulse Oximetry 100 100 Oxygen Delivery Fraction of Inspired Oxygen 40 10/30/24 06:31 10/30/24 07:30 10/30/24 08:00 Temperature Pulse Rate 99 92 99 Respiratory Rate Blood Pressure 132/77 120/71 Pulse Oximetry 100 Oxygen Delivery Mechanical Ventilation Fraction of Inspired Oxygen 30 10/30/24 08:00 10/30/24 08:00 10/30/24 08:00 Temperature Pulse Rate 99 99 99 Respiratory Rate 15 15 Blood Pressure 120/71 Pulse Oximetry Oxygen Delivery Fraction of Inspired Oxygen 10/30/24 08:00 10/30/24 08:00 10/30/24 08:00 Temperature 97.7 F Pulse Rate 99 99 104 H Respiratory Rate 15 Blood Pressure 120/71 120/71 Pulse Oximetry 100 Oxygen Delivery Fraction of Inspired Oxygen 10/30/24 08:00 10/30/24 08:00 10/30/24 08:24 Temperature Pulse Rate 84 Respiratory Rate Blood Pressure 149/93 H Pulse Oximetry 100 Oxygen Delivery Mechanical Ventilation Fraction of Inspired Oxygen 30 30 10/30/24 09:05 10/30/24 09:06 10/30/24 09:28 Temperature Pulse Rate 93 95 84 Respiratory Rate 14 14 Blood Pressure 149/73 H Pulse Oximetry Oxygen Delivery Fraction of Inspired Oxygen 10/30/24 09:43 10/30/24 09:44 10/30/24 10:00 Temperature Pulse Rate 78 75 98 Respiratory Rate Blood Pressure 134/66 132/65 130/82 Pulse Oximetry Oxygen Delivery Fraction of Inspired Oxygen 10/30/24 10:00 10/30/24 10:00 10/30/24 10:00 Temperature Pulse Rate 89 90 100 Respiratory Rate 14 14 Blood Pressure Pulse Oximetry Oxygen Delivery Fraction of Inspired Oxygen 10/30/24 10:00 10/30/24 11:02 Temperature Pulse Rate 93 94 Respiratory Rate 14 Blood Pressure 110/68 Pulse Oximetry 100 100 Oxygen Delivery Mechanical Ventilation Fraction of Inspired Oxygen 30 Exam 2 Narrative: General: Patient intubated and sedated, in no acute distress HEENT:? Pupils equal reactive, sclerae is clear, ETT in place Neck:? Supple Respiratory:? Coarse breath sounds bilaterally, decreased at bases, no rales or wheezing noted, adequate air entry Cardiac:? S1-S2 is normal regular rate and rhythm Abdomen:? Soft, tender to palpation, hypoactive bowel sounds, nondistended. HUMAIRA drain in place Extremities:? Bilateral lower extremities are contracted, bilateral lower extremity and pedal edema, palpable pedal pulses Neuro:? Patient is intubated, sedated but opens her eyes, nods to questions, follows simple commands with upper extremities, lower extremities are contracted Skin:? No skin lesions noted other than the midline incision which is covered under dressing, clean dry and intact Psych:? Unable to assess at this time Results Labs 10/30/24 04:41 10/30/24 04:41 Labs: Short CBC 10/29/24 10/29/24 10/29/24 Range/Units 17:30 20:21 23:26 WBC 13.7 H 16.2 H 23.2 H (4.5-10.0) K/mm3 Hgb 10.3 L 7.5 L (12.0-15.0) g/dL Hct 32.6 L 23.6 L (37.0-47.0) % Plt Count 185 244 (150-375) k/mm3 10/29/24 10/29/24 10/29/24 Range/Units 23:26 23:26 23:26 WBC 26.0 H (4.5-10.0) K/mm3 Hgb 9.6 L 10.2 L (12.0-15.0) g/dL Hct 29.0 L 31.0 L (37.0-47.0) % Plt Count 146 L (150-375) k/mm3 10/29/24 10/30/24 Range/Units 23:26 04:41 WBC 23.9 H (4.5-10.0) K/mm3 Hgb 9.0 L (12.0-15.0) g/dL Hct 27.4 L (37.0-47.0) % Plt Count 153 104 L (150-375) k/mm3 BMP 10/29/24 10/30/24 17:30 04:41 Sodium 133 L 135 L Potassium 4.1 3.6 Chloride 111 H 107 Carbon Dioxide 18 L 18 L BUN 11 D 17 Creatinine 0.59 L 0.86 Glucose 137 H 247 H Calcium 8.2 L 7.5 L Liver Function 10/29/24 10/30/24 Range/Units 17:30 04:41 Total Bilirubin 0.3 0.6 (0.2-1.3) mg/dL AST 60 H 280 H (14-36) U/L ALT 29 135 H (6-35) U/L Alkaline Phosphatase 54 66 (38-126) U/L Albumin 2.0 L 2.4 L (3.5-5.1) g/dL Quality VTE Prophylaxis VTE prophylaxis: mechanical ordered Hospitalist MIPS Advance Care Plan I have confirmed that the patient's Advanced Care Plan is present, code status is documented, or surrogate decision maker is listed in patient medical record.: Yes Medication Reconciliation I have utilized all available resources to obtain, update and review the patients current medications (includes all prescriptions, OTC, herbals, cannabis, and nutritional supplements).: Yes
[2024-10-30] MEDS: LACTATED RINGERS 1,000 ML 75 ML IV CONT (11:45)
[2024-10-30 12:15] LABS: Hematocrit 25.1 % (37.0-47.0); Hemoglobin 8.3 g/dL (12.0-15.0); Mean Corpuscular HGB Conc 33.1 g/dl (32-36); Mean Corpuscular Volume 87.8 fl (80-100); Mean Platelet Volume 10.3 fl (7.4-10.4); Platelet Count Result 101 k/mm3 (150-375); Red Blood Count 2.86 M/mm3 (4.2-5.4); Red Cell Distribution Width 15.6 % (11.5-14.5)
[2024-10-30 12:25] LABS: Lactic Acid Reflex 1.5 mmol/L (0.7-2.0)
--- NOTE | 2024-10-30 13:01 | PM.PNGS ---
Progress Note: A&P Assessment and Plan (1) Chronic cholecystitis due to cholelithiasis with choledocholithiasis: Code(s): K80.64 - Calculus of gallbladder and bile duct with chronic cholecystitis without obstruction Status: Acute Assessment and Plan: Difficult cholecystectomy due to prior surgery, extensive adhesions and severe chronic cholecystitis. Complicated further by significant intraoperative bleeding from superficial hepatic vein just deep to the gallbladder fossa. Currently remains in critical condition on mechanical ventilator. Discussed with sheet metal former, Dr. Loco. (2) Acute respiratory failure: Code(s): J96.00 - Acute respiratory failure, unspecified whether with hypoxia or hypercapnia Status: Acute Assessment and Plan: Stable on vent. Expect significant fluid shifts today and tomorrow. No plans for extubation although chest x-ray is clear. (3) Postoperative hemorrhagic shock: Code(s): T81.19XA - Other postprocedural shock, initial encounter Status: Acute Assessment and Plan: Very difficult night. Appreciate Dr. Loco so critical care management and patient much improved today. Still on 6-8 microgram/kilogram per minute of Levophed. Anemic but stable H&H. Renal function minimally changed at this point. (4) Chronic indwelling White catheter: Code(s): Z97.8 - Presence of other specified devices Status: Chronic (5) Postoperative anemia due to acute blood loss: Code(s): D62 - Acute posthemorrhagic anemia Status: Acute (6) Dementia: Code(s): F03.90 - Unspecified dementia, unspecified severity, without behavioral disturbance, psychotic disturbance, mood disturbance, and anxiety Status: Chronic Subjective Subjective Date/Time Seen: 10/30/24 13:01 Post Op day: 1 Patient reports: afebrile Interval history: Remains intubated but arousable Review of Systems Review of Systems: ROS unobtainable: Yes unobtainable due to endotracheal tube Exam Const: General: awake and tired appearing Nutritional Appearance: thin GI: Inspection: non-distended, incision (Healing well) and other (HUMAIRA drain serosanguineous output, more dilute than last night) GI Palp: Yes Soft to palpation and Yes Tenderness to palpation present (GI) Objective Data Vital Signs Vital Signs: Vital Signs - 24 hr 10/29/24 18:29 10/29/24 18:30 10/29/24 18:30 Temperature Pulse Rate 123 H Respiratory Rate 23 H Blood Pressure Pulse Oximetry 100 Oxygen Delivery Mechanical Ventilation Fraction of Inspired Oxygen 100 100 10/29/24 18:40 10/29/24 18:45 10/29/24 19:00 Temperature Pulse Rate 138 H 137 H 129 H Respiratory Rate 25 H 16 14 Blood Pressure Pulse Oximetry Oxygen Delivery Fraction of Inspired Oxygen 10/29/24 19:00 10/29/24 19:15 10/29/24 19:23 Temperature Pulse Rate 129 H 146 H 141 H Respiratory Rate 14 22 H 30 H Blood Pressure 54/44 L 77/61 L Pulse Oximetry 100 100 Oxygen Delivery Fraction of Inspired Oxygen 10/29/24 19:25 10/29/24 19:30 10/29/24 19:33 Temperature Pulse Rate 141 H 141 H 138 H Respiratory Rate 22 H 27 H Blood Pressure 82/57 L 60/49 L Pulse Oximetry 100 Oxygen Delivery Fraction of Inspired Oxygen 10/29/24 19:36 10/29/24 19:45 10/29/24 20:00 Temperature Pulse Rate 139 H 147 H 137 H Respiratory Rate 23 H 23 H Blood Pressure 58/48 L 72/57 L Pulse Oximetry 100 Oxygen Delivery Fraction of Inspired Oxygen 10/29/24 20:00 10/29/24 20:00 10/29/24 20:00 Temperature Pulse Rate 137 H 137 H 136 H Respiratory Rate 23 H 24 H Blood Pressure 60/48 L 57/45 L Pulse Oximetry 100 Oxygen Delivery Fraction of Inspired Oxygen 10/29/24 20:00 10/29/24 20:00 10/29/24 20:00 Temperature Pulse Rate 135 H Respiratory Rate Blood Pressure Pulse Oximetry 100 Oxygen Delivery Mechanical Ventilation Fraction of Inspired Oxygen 100 100 10/29/24 20:05 10/29/24 20:12 10/29/24 20:15 Temperature Pulse Rate 136 H 138 H Respiratory Rate 22 H Blood Pressure 72/55 L 59/48 L Pulse Oximetry 100 96 Oxygen Delivery Mechanical Ventilation Fraction of Inspired Oxygen 60 10/29/24 20:16 10/29/24 20:17 10/29/24 20:30 Temperature Pulse Rate 141 H 140 H 142 H Respiratory Rate 25 H Blood Pressure 63/53 L 60/49 L 63/51 L Pulse Oximetry 96 Oxygen Delivery Fraction of Inspired Oxygen 10/29/24 20:45 10/29/24 21:00 10/29/24 21:20 Temperature Pulse Rate 133 H 128 H 147 H Respiratory Rate 23 H 22 H 25 H Blood Pressure 88/63 L 90/63 L 42/35 L Pulse Oximetry 96 98 98 Oxygen Delivery Fraction of Inspired Oxygen 10/29/24 21:30 10/29/24 21:45 10/29/24 21:54 Temperature 34.4 C L Pulse Rate 145 H 138 H 140 H Respiratory Rate 27 H 26 H 21 H Blood Pressure 44/37 L 64/50 L 48/40 L Pulse Oximetry 77 L 98 79 L Oxygen Delivery Fraction of Inspired Oxygen 10/29/24 22:00 10/29/24 22:00 10/29/24 22:00 Temperature Pulse Rate 135 H 135 H 135 H Respiratory Rate 27 H 27 H Blood Pressure 66/51 L Pulse Oximetry Oxygen Delivery Fraction of Inspired Oxygen 10/29/24 22:00 10/29/24 22:00 10/29/24 22:00 Temperature 34.4 C L Pulse Rate 135 H 135 H 135 H Respiratory Rate 26 H Blood Pressure 40/25 L 40/25 L 80/59 L Pulse Oximetry 97 Oxygen Delivery Fraction of Inspired Oxygen 10/29/24 22:00 10/29/24 22:05 10/29/24 22:11 Temperature 34.4 C L 34.4 C L Pulse Rate 135 H 135 H 134 H Respiratory Rate 27 H 27 H Blood Pressure 103/69 109/72 Pulse Oximetry 96 100 Oxygen Delivery Fraction of Inspired Oxygen 10/29/24 22:15 10/29/24 22:22 10/29/24 22:30 Temperature 34.4 C L 34.3 C L Pulse Rate 135 H 120 H 128 H Respiratory Rate 27 H 19 21 H Blood Pressure 79/64 L 129/81 139/85 Pulse Oximetry 100 100 99 Oxygen Delivery Fraction of Inspired Oxygen 10/29/24 22:30 10/29/24 22:30 10/29/24 22:33 Temperature 34.4 C L Pulse Rate 123 H 131 H 131 H Respiratory Rate 16 21 H 21 H Blood Pressure 94/68 L 125/82 Pulse Oximetry 97 99 Oxygen Delivery Fraction of Inspired Oxygen 10/29/24 22:45 10/29/24 22:48 10/29/24 22:56 Temperature 34.4 C L 34.4 C L Pulse Rate 126 H 120 H Respiratory Rate 18 18 Blood Pressure 90/66 L 104/73 Pulse Oximetry 97 97 Oxygen Delivery Fraction of Inspired Oxygen 10/29/24 23:00 10/29/24 23:05 10/29/24 23:14 Temperature 34.4 C L Pulse Rate 120 H 113 H Respiratory Rate 18 Blood Pressure 102/74 Pulse Oximetry 97 98 Oxygen Delivery Mechanical Ventilation Fraction of Inspired Oxygen 60 10/29/24 23:15 10/29/24 23:20 10/29/24 23:30 Temperature 34.8 C L Pulse Rate 111 H 88 Respiratory Rate 19 Blood Pressure 56/47 L 202/102 H Pulse Oximetry 98 Oxygen Delivery Fraction of Inspired Oxygen 10/29/24 23:30 10/29/24 23:34 10/29/24 23:35 Temperature 35.1 C L Pulse Rate 121 H 133 H Respiratory Rate 17 Blood Pressure 159/81 H 186/86 H Pulse Oximetry 98 Oxygen Delivery Fraction of Inspired Oxygen 10/29/24 23:45 10/29/24 23:50 10/30/24 00:00 Temperature 35.6 C L Pulse Rate 123 H 137 H Respiratory Rate 20 19 Blood Pressure 140/85 Pulse Oximetry 100 Oxygen Delivery Fraction of Inspired Oxygen 10/30/24 00:00 10/30/24 00:00 10/30/24 00:00 Temperature Pulse Rate 137 H 137 H 141 H Respiratory Rate 19 20 Blood Pressure 101/70 81/60 L Pulse Oximetry 97 Oxygen Delivery Fraction of Inspired Oxygen 10/30/24 00:00 10/30/24 00:00 10/30/24 00:00 Temperature Pulse Rate 134 H Respiratory Rate Blood Pressure Pulse Oximetry 98 Oxygen Delivery Mechanical Ventilation Fraction of Inspired Oxygen 60 60 10/30/24 00:15 10/30/24 00:19 10/30/24 00:19 Temperature Pulse Rate 140 H 139 H 139 H Respiratory Rate 20 Blood Pressure 62/52 L 78/52 L 78/52 L Pulse Oximetry 97 Oxygen Delivery Fraction of Inspired Oxygen 10/30/24 00:27 10/30/24 00:30 10/30/24 00:30 Temperature 36.0 C L Pulse Rate 138 H 139 H Respiratory Rate 19 Blood Pressure 83/63 L 82/62 L Pulse Oximetry 96 Oxygen Delivery Fraction of Inspired Oxygen 10/30/24 00:44 10/30/24 00:45 10/30/24 01:00 Temperature Pulse Rate 144 H 144 H 143 H Respiratory Rate 18 18 Blood Pressure 80/62 L 80/62 L 87/67 L Pulse Oximetry 95 95 Oxygen Delivery Fraction of Inspired Oxygen 10/30/24 01:15 10/30/24 01:28 10/30/24 01:30 Temperature Pulse Rate 147 H 151 H 153 H Respiratory Rate 18 19 Blood Pressure 84/65 L 78/63 L Pulse Oximetry 95 96 97 Oxygen Delivery Mechanical Ventilation Fraction of Inspired Oxygen 60 10/30/24 02:00 10/30/24 02:00 10/30/24 02:00 Temperature 36.2 C L Pulse Rate 148 H 147 H Respiratory Rate 18 Blood Pressure Pulse Oximetry Oxygen Delivery Fraction of Inspired Oxygen 10/30/24 02:00 10/30/24 02:06 10/30/24 02:10 Temperature 36.4 C L 36.2 C L 36.2 C L Pulse Rate 148 H 147 H 141 H Respiratory Rate 18 18 18 Blood Pressure 91/72 L 88/70 L 102/76 Pulse Oximetry 96 94 97 Oxygen Delivery Fraction of Inspired Oxygen 10/30/24 02:18 10/30/24 02:20 10/30/24 02:20 Temperature 36.7 C 36.7 C Pulse Rate 98 87 130 H Respiratory Rate 19 19 Blood Pressure 173/86 H 177/84 H 161/88 H Pulse Oximetry 99 100 Oxygen Delivery Fraction of Inspired Oxygen 10/30/24 02:20 10/30/24 02:24 10/30/24 02:25 Temperature 36.4 C L Pulse Rate 78 78 85 Respiratory Rate 17 Blood Pressure 161/88 H 205/88 H 186/88 H Pulse Oximetry 100 Oxygen Delivery Fraction of Inspired Oxygen 10/30/24 02:25 10/30/24 02:30 10/30/24 02:30 Temperature 36.4 C L Pulse Rate 85 100 Respiratory Rate Blood Pressure 186/88 H 202/87 H Pulse Oximetry Oxygen Delivery Fraction of Inspired Oxygen 10/30/24 02:31 10/30/24 02:35 10/30/24 02:35 Temperature 36.4 C L Pulse Rate 84 102 H 95 Respiratory Rate 17 Blood Pressure 191/86 H 160/81 H 174/83 H Pulse Oximetry 100 Oxygen Delivery Fraction of Inspired Oxygen 10/30/24 02:35 10/30/24 02:45 10/30/24 02:45 Temperature Pulse Rate 95 105 H 106 H Respiratory Rate 18 Blood Pressure 174/83 H 149/79 H 140/76 Pulse Oximetry 98 Oxygen Delivery Fraction of Inspired Oxygen 10/30/24 02:55 10/30/24 03:00 10/30/24 03:02 Temperature Pulse Rate 148 H 116 H 118 H Respiratory Rate 18 19 Blood Pressure 96/68 L 85/56 L Pulse Oximetry 99 Oxygen Delivery Fraction of Inspired Oxygen 10/30/24 03:15 10/30/24 03:30 10/30/24 03:45 Temperature Pulse Rate 115 H 109 H 107 H Respiratory Rate 18 17 17 Blood Pressure 94/61 L 96/61 L 126/72 Pulse Oximetry 98 99 92 Oxygen Delivery Fraction of Inspired Oxygen 10/30/24 04:00 10/30/24 04:00 10/30/24 04:00 Temperature Pulse Rate 122 H 99 99 Respiratory Rate Blood Pressure 131/75 131/75 Pulse Oximetry Oxygen Delivery Fraction of Inspired Oxygen 10/30/24 04:00 10/30/24 04:00 10/30/24 04:00 Temperature Pulse Rate 99 99 99 Respiratory Rate 16 16 Blood Pressure 131/75 Pulse Oximetry Oxygen Delivery Fraction of Inspired Oxygen 10/30/24 04:00 10/30/24 04:00 10/30/24 04:15 Temperature Pulse Rate 90 90 113 H Respiratory Rate 17 18 Blood Pressure 128/74 129/79 Pulse Oximetry 99 100 Oxygen Delivery Fraction of Inspired Oxygen 10/30/24 04:30 10/30/24 04:42 10/30/24 04:45 Temperature Pulse Rate 125 H 102 H 105 H Respiratory Rate 19 16 Blood Pressure 110/72 130/77 129/75 Pulse Oximetry 100 100 Oxygen Delivery Fraction of Inspired Oxygen 10/30/24 05:00 10/30/24 05:08 10/30/24 05:15 Temperature Pulse Rate 101 H 96 99 Respiratory Rate 16 16 Blood Pressure 132/81 146/76 H 107/69 Pulse Oximetry 100 100 Oxygen Delivery Fraction of Inspired Oxygen 10/30/24 05:30 10/30/24 05:45 10/30/24 06:00 Temperature Pulse Rate 95 88 87 Respiratory Rate 16 Blood Pressure 108/69 131/76 Pulse Oximetry 100 100 Oxygen Delivery Mechanical Ventilation Fraction of Inspired Oxygen 50 10/30/24 06:00 10/30/24 06:00 10/30/24 06:00 Temperature Pulse Rate 86 86 87 Respiratory Rate 16 16 Blood Pressure 130/75 Pulse Oximetry Oxygen Delivery Fraction of Inspired Oxygen 10/30/24 06:00 10/30/24 06:00 10/30/24 06:00 Temperature Pulse Rate 86 87 87 Respiratory Rate 14 Blood Pressure 130/75 129/76 Pulse Oximetry 100 Oxygen Delivery Fraction of Inspired Oxygen 10/30/24 06:12 10/30/24 06:30 10/30/24 06:31 Temperature Pulse Rate 100 99 Respiratory Rate 13 Blood Pressure 130/78 132/77 Pulse Oximetry 100 Oxygen Delivery Fraction of Inspired Oxygen 40 10/30/24 07:30 10/30/24 08:00 10/30/24 08:00 Temperature Pulse Rate 92 99 99 Respiratory Rate 15 Blood Pressure 120/71 Pulse Oximetry 100 Oxygen Delivery Mechanical Ventilation Fraction of Inspired Oxygen 30 10/30/24 08:00 10/30/24 08:00 10/30/24 08:00 Temperature Pulse Rate 99 99 99 Respiratory Rate 15 Blood Pressure 120/71 120/71 Pulse Oximetry Oxygen Delivery Fraction of Inspired Oxygen 10/30/24 08:00 10/30/24 08:00 10/30/24 08:00 Temperature 36.5 C Pulse Rate 99 104 H Respiratory Rate 15 Blood Pressure 120/71 Pulse Oximetry 100 Oxygen Delivery Fraction of Inspired Oxygen 30 10/30/24 08:00 10/30/24 08:24 10/30/24 09:05 Temperature Pulse Rate 84 93 Respiratory Rate 14 Blood Pressure 149/93 H Pulse Oximetry 100 Oxygen Delivery Mechanical Ventilation Fraction of Inspired Oxygen 30 10/30/24 09:06 10/30/24 09:28 10/30/24 09:43 Temperature Pulse Rate 95 84 78 Respiratory Rate 14 Blood Pressure 149/73 H 134/66 Pulse Oximetry Oxygen Delivery Fraction of Inspired Oxygen 10/30/24 09:44 10/30/24 10:00 10/30/24 10:00 Temperature Pulse Rate 75 98 89 Respiratory Rate 14 Blood Pressure 132/65 130/82 Pulse Oximetry Oxygen Delivery Fraction of Inspired Oxygen 10/30/24 10:00 10/30/24 10:00 10/30/24 10:00 Temperature Pulse Rate 90 100 93 Respiratory Rate 14 14 Blood Pressure 110/68 Pulse Oximetry 100 Oxygen Delivery Fraction of Inspired Oxygen 10/30/24 11:02 10/30/24 11:45 Temperature Pulse Rate 94 97 Respiratory Rate Blood Pressure 89/62 L Pulse Oximetry 100 Oxygen Delivery Mechanical Ventilation Fraction of Inspired Oxygen 30 Intake/Output Intake/Output: Intake & Output 10/27/24 10/28/24 10/29/24 10/30/24 23:59 23:59 23:59 23:59 Intake Total 1840 547.5 3189.6 4332.1 Output Total 2050 3150 2450 420 Balance -210 -2602.5 739.6 3912.1 Meds/Results Medications: Active Medications Generic Name Dose Route Start Last Admin Trade Name Freq PRN Reason Stop Dose Admin Acetaminophen 1,000 mg 10/25/24 08:02 Acetaminophen 500 Mg Tablet PO Q6H PRN Pain 1-3 or fever Docusate Sodium 100 mg 10/25/24 09:00 10/29/24 18:29 Docusate Sodium 100 Mg Capsule PO Not Given BID SONIA Fentanyl Citrate 12.5 mcg 10/29/24 19:12 Fentanyl Citrate Inj (*Crx) 100 Mcg/2 Ml Vial IV PUSH Q2H PRN Breakthrough Pain Rated 4-6 or NPO Fentanyl Citrate 25 mcg 10/29/24 19:12 Fentanyl Citrate Inj (*Crx) 100 Mcg/2 Ml Vial IV PUSH Q2H PRN Breakthrough Pain Rated 7-10 or NPO Hydrocortisone Sodium Succinate 100 mg 10/30/24 04:00 10/30/24 03:21 Hydrocortisone Sodium Succinate 100 Mg/2 Ml Vial IV PUSH 100 mg Q8H SONIA Administration Hydroxyzine Pamoate 25 mg 10/25/24 17:00 10/29/24 18:29 Hydroxyzine Pamoate 25 Mg Capsule PO Not Given BID SONIA Levetiracetam 750 mg/ Dextrose 107.5 mls @ 430 mls/hr 10/28/24 21:00 10/30/24 09:08 IVPB 430 mls/hr Q12H SONIA Administration Fentanyl Citrate 2,500 mcg in 250 mls @ 7.5 mls/hr 10/29/24 19:10 10/30/24 10:00 Fentanyl 2,500 Mcg/Ns 250 Ml IV CONT 75 mcg/hr .[id number] SONIA 7.5 mls/hr Titration Protocol 75 MCG/HR Midazolam HCl 100 mg in 100 mls @ 3 mls/hr 10/29/24 19:10 10/30/24 10:00 Versed 100 Mg/Ns 100 Ml IV CONT 3 mg/hr .[id number] SONIA 3 mls/hr Titration Protocol 3 MG/HR Lactated Ringer's 1,000 mls @ 75 mls/hr 10/29/24 19:12 10/30/24 11:45 Lr - Lactated Ringers Iv IV CONT 75 mls/hr .[id number] SONIA Administration Norepinephrine Bitartrate 8 mg in 250 mls @ 18.75 mls/hr 10/29/24 19:30 10/30/24 11:45 Levophed 8 Mg/D5w 250 Ml IV CONT 10 mcg/min .[id number] SONIA 18.75 mls/hr Titration Protocol 10 MCG/MIN Piperacillin/Tazobactam/Dextrose 3.375 gm in 50 mls @ 100 mls/hr 10/29/24 21:00 10/30/24 09:11 Zosyn 3.375 Gm/Ns 50 Ml IVPB 100 mls/hr Q6H SONIA Administration Irbesartan 75 mg 10/25/24 09:00 10/29/24 08:47 Irbesartan 75 Mg Tablet PO Not Given DAILY SONIA Lactobacillus Acidophilus 1 tablet 10/25/24 09:00 10/29/24 08:47 Acidophilus/Bulgaricus Chewable Tablet PO Not Given DAILY SONIA Magnesium Oxide 400 mg 10/25/24 09:00 10/29/24 08:47 Magnesium Oxide 400 Mg Tablet PO Not Given DAILY SONIA Mirtazapine 15 mg 10/25/24 21:00 10/29/24 23:40 Mirtazapine 15 Mg Tablet PO 15 mg HS SONIA Administration Montelukast Sodium 10 mg 10/25/24 21:00 10/29/24 23:40 Montelukast Sodium 10 Mg Tablet PO 10 mg HS SONIA Administration Multi-Ingred Cream/Lotion/Oil/Oint 1 applic 10/29/24 21:00 10/30/24 09:32 Mineral Oil/White Petrolatum Ointment EACH EYE 1 applic Q12HR SONIA Administration Multivitamins/Calcium 1 tablet 10/25/24 09:00 10/29/24 08:47 Therapeutic Multivitamins/Minerals Tab (*Bkc) PO Not Given DAILY SONIA Ondansetron HCl 4 mg 10/29/24 14:00 Ondansetron Inj 4 Mg/2 Ml Vial IV PUSH ONCE PRN Nausea Oxycodone HCl 5 mg 10/25/24 08:02 Oxycodone Hcl (*Crx) 5 Mg Tab Ir PO Q4H PRN Pain Rated 7-10 Pantoprazole Sodium 20 mg 10/25/24 09:00 10/29/24 23:40 Pantoprazole Sod Sesquihydrate 20 Mg Tab PO 20 mg Q12HR SONIA Administration Pantoprazole Sodium 40 mg 10/30/24 09:00 10/30/24 09:11 Pantoprazole Sodium Iv 40 Mg Vial IV PUSH 40 mg Q12HR SONIA Administration Potassium Chloride 10 meq 10/25/24 09:00 10/29/24 18:29 Potassium Chloride 10 Meq Er Tablet PO Not Given BID SONIA Simvastatin 20 mg 10/25/24 21:00 10/29/24 23:41 Simvastatin 20 Mg Tablet PO 20 mg HS SONIA Administration Sodium Chloride 10 ml 10/29/24 22:00 10/30/24 05:39 Central Line Flush IV PUSH 10 ml Q8HR SONIA Administration Sodium Chloride 20 ml 10/29/24 19:51 Central Line Flush IV PUSH PRN PRN after blood draws Sucralfate 1 gm 10/25/24 16:30 10/30/24 05:15 Sucralfate 1 Gm Tablet PO Not Given BIDAC [facility] Vitamin D 4,000 units 10/25/24 09:00 10/29/24 08:47 Cholecalciferol 1,000 Units Tablet PO Not Given DAILY [facility] Radiology Results: ITS Impressions Abdomen/Pelvis CT 10/24/24 19:41 IMPRESSION: 1. No evidence of appendicitis, diverticulitis or intestinal obstruction. 2. Highly suggestive of abscess in the right pararectal area. 3. Markedly thickened rectal wall with distended colon by gases. Further evaluation of the rectum is advised. 4. Hypodensities in both kidneys which may indicate pyelonephritis. Dilated ureters are also noted. 5. Thickened wall of the urinary bladder which may indicate cystitis versus infiltrative process. Further evaluation advised. 6. Intrahepatic and extrahepatic biliary dilatation. 7. Cholelithiasis. 8. Hepatomegaly. Enema w/Water Soluble 10/25/24 14:02 IMPRESSION: 1. Moderate amount of scattered colonic stool suggestive of constipation with no evident strictures/obstruction. MRCP 10/27/24 14:28 IMPRESSION: 1. Mild intra and extra hepatic biliary ductal dilation with both cholelithiasis and choledocholithiasis which does not appear currently obstructing. 2. Very small bilateral posterior layering pleural effusions. 3. Mild bilateral hydronephrosis. Cholangiogram,Operative 10/29/24 17:33 IMPRESSION: 1. Contrast injection delineates slowly mobile nonobstructing material within the dilated common hepatic and bile ducts the appearance of which favors sludge over very small gallstones. Chest X-Ray 10/30/24 08:12 IMPRESSION: 1. Endotracheal tube tip 6.2 cm above the bernardino. Consider advancement by 4 cm. 2. Nasogastric tube tip in the body the stomach would recommend advancement by 5 cm in order to place the proximal side-port below the level of the gastroesophageal junction. 3. Unchanged mild elevation of left hemidiaphragm. No other acute cardiopulmonary disease. Labs Labs: Laboratory Results - last 24 hr 10/27/24 10/29/24 10/29/24 07:06 17:18 17:30 WBC 13.7 H RBC 3.49 L Hgb 10.3 L Hct 32.6 L MCV 93.4 MCH 29.5 MCHC 31.6 L RDW 14.7 H Plt Count 185 MPV 9.6 Immature Gran % (Auto) Neut % (Auto) Lymph % (Auto) [place] % (Auto) Eos % (Auto) Baso % (Auto) Lymph # (Auto) [place] # (Auto) Eos # (Auto) Baso # (Auto) Abs Immat Gran (auto) Absolute Neuts (auto) Absolute Nucleated RBC Total Counted Neutrophils % (Manual) Band Neutrophils % Lymphocytes % (Manual) Monocytes % (Manual) Nucleated RBC % Abs Neuts (Manual) Abs Lymphs (Manual) Abs Monocytes (Manual) Platelet Estimate Schistocytes PT 14.8 H INR 1.1 APTT Fibrinogen 300 D-Dimer Puncture Site Artline ABG pH 7.215 L* ABG pCO2 45.4 H ABG pO2 405.0 H ABG PO2/FiO2 Ratio 4.05 ABG HCO3 18.0 L ABG O2 Saturation 99.8 ABG O2 Content 16.6 ABG Base Excess -9.5 A-a Gradient 262.6 Oxyhemoglobin 99.4 Total Hemoglobin 11.1 L O2 Delivery Device In or/per anesthesia O2 Liters/Min Not Reportable Minute Volume Vent Rate Vent Mode FiO2 100 Tidal Volume PEEP Peak Inspir Pressure Pressure Support Sodium 133 L Potassium 4.1 Chloride 111 H Carbon Dioxide 18 L Anion Gap 4 BUN 11 D Creatinine 0.59 L Estim Creat Clear Calc 69 Estimated GFR > 60 Glucose 137 H Lactic Acid Calcium 8.2 L Magnesium Total Bilirubin 0.3 AST 60 H ALT 29 Alkaline Phosphatase 54 Total Protein 4.0 L Albumin 2.0 L Triglycerides 94 Blood Type O Positive Antibody Screen Negative Crossmatch See Detail 10/29/24 10/29/24 10/29/24 19:49 20:21 20:27 WBC 16.2 H RBC 2.53 L Hgb 7.5 L Hct 23.6 L MCV 93.3 MCH 29.6 MCHC 31.8 L RDW 14.9 H Plt Count 244 MPV 9.8 Immature Gran % (Auto) 1.2 H Neut % (Auto) 73.5 H Lymph % (Auto) 20.1 [place] % (Auto) 4.7 Eos % (Auto) 0.2 Baso % (Auto) 0.3 Lymph # (Auto) 3.26 H [place] # (Auto) 0.8 H Eos # (Auto) 0.0 Baso # (Auto) 0.1 Abs Immat Gran (auto) 0.19 H Absolute Neuts (auto) 11.9 H Absolute Nucleated RBC 0.000 Total Counted Neutrophils % (Manual) Band Neutrophils % Lymphocytes % (Manual) Monocytes % (Manual) Nucleated RBC % 0.0 Abs Neuts (Manual) Abs Lymphs (Manual) Abs Monocytes (Manual) Platelet Estimate Schistocytes PT INR APTT Fibrinogen D-Dimer Puncture Site Artline ABG pH 7.361 ABG pCO2 28.1 L ABG pO2 443.4 H ABG PO2/FiO2 Ratio 4.43 ABG HCO3 15.6 L ABG O2 Saturation 99.8 ABG O2 Content 12.6 L ABG Base Excess -8.9 A-a Gradient 241.5 Oxyhemoglobin 99.3 Total Hemoglobin 8.1 L O2 Delivery Device Ventilator O2 Liters/Min Not Reportable Minute Volume Not Reportable Vent Rate 12 Vent Mode Cmv FiO2 100 Tidal Volume 400 PEEP 5 Peak Inspir Pressure Not Reportable Pressure Support Not Reportable Sodium Potassium Chloride Carbon Dioxide Anion Gap BUN Creatinine Estim Creat Clear Calc Estimated GFR Glucose Lactic Acid 4.7 H* Calcium Magnesium Total Bilirubin AST ALT Alkaline Phosphatase Total Protein Albumin Triglycerides Blood Type Antibody Screen Crossmatch 10/29/24 10/29/24 10/29/24 21:29 23:26 23:26 WBC 23.2 H 26.0 H RBC 3.31 L Hgb Hct MCV MCH MCHC RDW Plt Count MPV Immature Gran % (Auto) Neut % (Auto) Lymph % (Auto) [place] % (Auto) Eos % (Auto) Baso % (Auto) Lymph # (Auto) [place] # (Auto) Eos # (Auto) Baso # (Auto) Abs Immat Gran (auto) Absolute Neuts (auto) Absolute Nucleated RBC Total Counted Neutrophils % (Manual) Band Neutrophils % Lymphocytes % (Manual) Monocytes % (Manual) Nucleated RBC % Abs Neuts (Manual) Abs Lymphs (Manual) Abs Monocytes (Manual) Platelet Estimate Schistocytes PT 16.7 H INR 1.3 APTT 36.6 Fibrinogen D-Dimer Puncture Site ABG pH ABG pCO2 ABG pO2 ABG PO2/FiO2 Ratio ABG HCO3 ABG O2 Saturation ABG O2 Content ABG Base Excess A-a Gradient Oxyhemoglobin Total Hemoglobin O2 Delivery Device O2 Liters/Min Minute Volume Vent Rate Vent Mode FiO2 Tidal Volume PEEP Peak Inspir Pressure Pressure Support Sodium Potassium Chloride Carbon Dioxide Anion Gap BUN Creatinine Estim Creat Clear Calc Estimated GFR Glucose Lactic Acid Calcium Magnesium Total Bilirubin AST ALT Alkaline Phosphatase Total Protein Albumin Triglycerides Blood Type Antibody Screen Crossmatch 10/29/24 10/29/24 10/29/24 23:26 23:26 23:26 WBC RBC 3.50 L Hgb 9.6 L 10.2 L Hct 29.0 L 31.0 L MCV 87.6 D MCH MCHC RDW Plt Count MPV Immature Gran % (Auto) Neut % (Auto) Lymph % (Auto) [place] % (Auto) Eos % (Auto) Baso % (Auto) Lymph # (Auto) [place] # (Auto) Eos # (Auto) Baso # (Auto) Abs Immat Gran (auto) Absolute Neuts (auto) Absolute Nucleated RBC Total Counted Neutrophils % (Manual) Band Neutrophils % Lymphocytes % (Manual) Monocytes % (Manual) Nucleated RBC % Abs Neuts (Manual) Abs Lymphs (Manual) Abs Monocytes (Manual) Platelet Estimate Schistocytes PT INR APTT Fibrinogen D-Dimer Puncture Site ABG pH ABG pCO2 ABG pO2 ABG PO2/FiO2 Ratio ABG HCO3 ABG O2 Saturation ABG O2 Content ABG Base Excess A-a Gradient Oxyhemoglobin Total Hemoglobin O2 Delivery Device O2 Liters/Min Minute Volume Vent Rate Vent Mode FiO2 Tidal Volume PEEP Peak Inspir Pressure Pressure Support Sodium Potassium Chloride Carbon Dioxide Anion Gap BUN Creatinine Estim Creat Clear Calc Estimated GFR Glucose Lactic Acid Calcium Magnesium Total Bilirubin AST ALT Alkaline Phosphatase Total Protein Albumin Triglycerides Blood Type Antibody Screen Crossmatch 10/29/24 10/29/24 10/29/24 23:26 23:26 23:26 WBC RBC Hgb Hct MCV 88.6 MCH 29.0 29.1 MCHC 33.1 32.9 RDW 14.8 H Plt Count MPV Immature Gran % (Auto) Neut % (Auto) Lymph % (Auto) [place] % (Auto) Eos % (Auto) Baso % (Auto) Lymph # (Auto) [place] # (Auto) Eos # (Auto) Baso # (Auto) Abs Immat Gran (auto) Absolute Neuts (auto) Absolute Nucleated RBC Total Counted Neutrophils % (Manual) Band Neutrophils % Lymphocytes % (Manual) Monocytes % (Manual) Nucleated RBC % Abs Neuts (Manual) Abs Lymphs (Manual) Abs Monocytes (Manual) Platelet Estimate Schistocytes PT INR APTT Fibrinogen D-Dimer Puncture Site ABG pH ABG pCO2 ABG pO2 ABG PO2/FiO2 Ratio ABG HCO3 ABG O2 Saturation ABG O2 Content ABG Base Excess A-a Gradient Oxyhemoglobin Total Hemoglobin O2 Delivery Device O2 Liters/Min Minute Volume Vent Rate Vent Mode FiO2 Tidal Volume PEEP Peak Inspir Pressure Pressure Support Sodium Potassium Chloride Carbon Dioxide Anion Gap BUN Creatinine Estim Creat Clear Calc Estimated GFR Glucose Lactic Acid Calcium Magnesium Total Bilirubin AST ALT Alkaline Phosphatase Total Protein Albumin Triglycerides Blood Type Antibody Screen Crossmatch 10/29/24 10/29/24 10/29/24 23:26 23:26 23:26 WBC RBC Hgb Hct MCV MCH MCHC RDW 15.0 H Plt Count 146 L 153 MPV 9.9 9.7 Immature Gran % (Auto) Neut % (Auto) Lymph % (Auto) [place] % (Auto) Eos % (Auto) Baso % (Auto) Lymph # (Auto) [place] # (Auto) Eos # (Auto) Baso # (Auto) Abs Immat Gran (auto) Absolute Neuts (auto) Absolute Nucleated RBC Total Counted Neutrophils % (Manual) Band Neutrophils % Lymphocytes % (Manual) Monocytes % (Manual) Nucleated RBC % Abs Neuts (Manual) Abs Lymphs (Manual) Abs Monocytes (Manual) Platelet Estimate Schistocytes PT 17.4 H INR 1.4 APTT 37.6 H Fibrinogen 171 L D-Dimer 2.15 H Puncture Site ABG pH ABG pCO2 ABG pO2 ABG PO2/FiO2 Ratio ABG HCO3 ABG O2 Saturation ABG O2 Content ABG Base Excess A-a Gradient Oxyhemoglobin Total Hemoglobin O2 Delivery Device O2 Liters/Min Minute Volume Vent Rate Vent Mode FiO2 Tidal Volume PEEP Peak Inspir Pressure Pressure Support Sodium Potassium Chloride Carbon Dioxide Anion Gap BUN Creatinine Estim Creat Clear Calc Estimated GFR Glucose Lactic Acid 7.1 H* Calcium Magnesium 1.3 L Total Bilirubin AST ALT Alkaline Phosphatase Total Protein Albumin Triglycerides Blood Type Antibody Screen Crossmatch 10/30/24 10/30/24 04:41 12:08 WBC 23.9 H 16.0 H RBC 3.05 L 2.86 L Hgb 9.0 L 8.3 L Hct 27.4 L 25.1 L MCV 89.8 87.8 MCH 29.5 29.0 MCHC 32.8 33.1 RDW 15.5 H 15.6 H Plt Count 104 L 101 L MPV 10.2 10.3 Immature Gran % (Auto) Not Reportable Neut % (Auto) Not Reportable Lymph % (Auto) Not Reportable [place] % (Auto) Not Reportable Eos % (Auto) Not Reportable Baso % (Auto) Not Reportable Lymph # (Auto) Not Reportable [place] # (Auto) Not Reportable Eos # (Auto) Not Reportable Baso # (Auto) Not Reportable Abs Immat Gran (auto) Not Reportable Absolute Neuts (auto) Not Reportable Absolute Nucleated RBC Not Reportable Total Counted 100 Neutrophils % (Manual) 79 H Band Neutrophils % 8 H Lymphocytes % (Manual) 5.0 L Monocytes % (Manual) 8 Nucleated RBC % Not Reportable Abs Neuts (Manual) 20.79 H Abs Lymphs (Manual) 1.19 Abs Monocytes (Manual) 1.91 H Platelet Estimate Slightly decreased Schistocytes None seen PT 18.4 H INR 1.5 APTT 34.8 Fibrinogen D-Dimer Puncture Site ABG pH ABG pCO2 ABG pO2 ABG PO2/FiO2 Ratio ABG HCO3 ABG O2 Saturation ABG O2 Content ABG Base Excess A-a Gradient Oxyhemoglobin Total Hemoglobin O2 Delivery Device O2 Liters/Min Minute Volume Vent Rate Vent Mode FiO2 Tidal Volume PEEP Peak Inspir Pressure Pressure Support Sodium 135 L Potassium 3.6 Chloride 107 Carbon Dioxide 18 L Anion Gap 10 BUN 17 Creatinine 0.86 Estim Creat Clear Calc 49 Estimated GFR > 60 Glucose 247 H Lactic Acid 4.6 H* 1.5 Calcium 7.5 L Magnesium 2.2 Total Bilirubin 0.6 AST 280 H ALT 135 H Alkaline Phosphatase 66 Total Protein 5.0 L Albumin 2.4 L Triglycerides Blood Type Antibody Screen Crossmatch
[2024-10-30 18:51] LABS: Hematocrit 23.3 % (37.0-47.0); Hemoglobin 7.7 g/dL (12.0-15.0); Immature Platelet Fraction Pct 4.7 % (0.9-11.2); Mean Corpuscular Hemoglobin 29.2 pg (26-34); Mean Corpuscular Volume 88.3 fl (80-100); Mean Platelet Volume 10.3 fl (7.4-10.4); Platelet Count Result 114 k/mm3 (150-375); Red Blood Count 2.64 M/mm3 (4.2-5.4); Red Cell Distribution Width 15.9 % (11.5-14.5); White Blood Count 15.4 K/mm3 (4.5-10.0)
[2024-10-31] VITALS (45 sets, daily range): BP systolic 90–154; BP diastolic 49–75; PULSE 40–621; RESP 10–15; TEMP 36.3–36.9; O2SAT 98–100
[2024-10-31 01:01] LABS: Hematocrit 25.8 % (37.0-47.0); Hemoglobin 8.5 g/dL (12.0-15.0); Immature Platelet Fraction Pct 5.1 % (0.9-11.2); Mean Corpuscular HGB Conc 32.9 g/dl (32-36); Mean Corpuscular Hemoglobin 29.5 pg (26-34); Mean Corpuscular Volume 89.6 fl (80-100); Mean Platelet Volume 10.3 fl (7.4-10.4); Platelet Count Result 83 k/mm3 (150-375); Red Blood Count 2.88 M/mm3 (4.2-5.4); Red Cell Distribution Width 15.8 % (11.5-14.5); White Blood Count 12.7 K/mm3 (4.5-10.0)
[2024-10-31] MEDS: LACTATED RINGERS 1,000 ML 75 ML IV CONT ×2 (01:51→14:29)
[2024-10-31] MEDS: FENTANYL 2,500MCG/NS250ML(*CRX 2,500 MCG/250 ML BAG 10 MCG IV CONT (03:31)
[2024-10-31] MEDS: MIDAZOLAM 100MG/NS 100ML(*CRX) 100 MG/100 ML BAG IV CONT (03:45)
[2024-10-31] MEDS: PIPERACILLN/TAZ 3.375GM/NS50ML 3.375 GM/50 ML BAG IVPB ×4 (03:50→21:18)
[2024-10-31] MEDS: HYDROCORTISONE SODIUM SUCCINATE 100 MG/2 ML VIAL IV PUSH (03:58)
[2024-10-31 05:37] LABS: INR 1.3; Prothrombin Time 16.3 Seconds (11.1-14.7)
[2024-10-31 05:38] LABS: Partial Thromboplastin Time 30.4 Seconds (22.3-36.8)
[2024-10-31 05:40] LABS: Lactic Acid Reflex 0.9 mmol/L (0.7-2.0)
[2024-10-31 05:41] LABS: Alanine Aminotransferase 252 U/L (6-35); Albumin Level 2.3 g/dL (3.5-5.1); Alkaline Phosphatase 55 U/L (38-126); Anion Gap 3 mmol/L (4-12); Aspartate Amino Transferase 333 U/L (14-36); Bilirubin,Total 0.6 mg/dL (0.2-1.3); Blood Urea Nitrogen 16 mg/dL (7-17); Calcium 7.6 mg/dL (8.4-10.2); Carbon Dioxide 27 mmol/L (22-30); Chloride 108 mmol/L (98-107); Estimated CRCL calculation 41 ml/min; Estimated Glomerular Filt Rate 54; Glucose 115 mg/dL (65-110); Sodium 138 mmol/L (137-145)
[2024-10-31 05:43] LABS: Alveolar/Arterial O2 Gradient 70.4 mmHg; Carboxyhemoglobin 0.6 % THb (0-2.0); Fractional Inspired Oxygen 30 %; HCO3 ABG 21.1 mEq/l (22.0-26.0); Oxygen Content ABG 12.2 %vol (16.0-22.0); Oxygen Saturation ABG 97.9 % (95.0-100.0); PCO2 ABG 33.8 mmHg (35.0-45.0); PO2 ABG 103.8 mmHg (80.0-100.0); PO2 FiO2 Ratio Arterial Blood 3.46 %; Reduced Hemoglobin 2.4 %THb (0-5.0); Total Hemoglobin 8.8 g/dL (12.0-18.0); pH ABG 7.414 (7.350-7.450)
[2024-10-31 05:44] LABS: Site Drawn ARTLINE
[2024-10-31 05:45] LABS: Arterial Blood Gas PEEP 5 cmH2O; Arterial Blood Gas Tidal Volume 400 ml; Arterial Blood Gas Vent Mode CMV; Arterial Blood Gas Ventilator rate 12 /MIN; Device VENTILATOR
[2024-10-31] MEDS: CENTRAL LINE FLUSH 10 ML IV PUSH ×3 (05:55→21:19)
[2024-10-31 05:58] LABS: Hematocrit 25.8 % (37.0-47.0); Hemoglobin 8.6 g/dL (12.0-15.0); Mean Corpuscular HGB Conc 33.3 g/dl (32-36); Mean Corpuscular Hemoglobin 29.5 pg (26-34); Mean Corpuscular Volume 88.4 fl (80-100); Platelet Count Result 68 k/mm3 (150-375); Red Blood Count 2.92 M/mm3 (4.2-5.4); White Blood Count 12.3 K/mm3 (4.5-10.0)
--- NOTE | 2024-10-31 06:19 | PC.NURSE ---
Dr Loco called due to decreasing platelet count. Order received for one unit platelets.
--- NOTE | 2024-10-31 06:29 | PC.NURSE ---
Lab requesting permission to give A positive platelets to patient who is O positive, as O positive platelets will need to be ordered and will not be available till 930-10AM. Asked Dr Loco who requests O positive platelets be ordered for patient.
[2024-10-31 07:00] LABS: Basophils Percent Auto 0.3 % (0.2-1.2); Hematocrit 25.3 % (37.0-47.0); Hemoglobin 8.1 g/dL (12.0-15.0); Immature Granulocyte Absolute 0.14 K/mm3 (0.00-0.031); Immature Granulocyte Percent A 1.1 % (0-0.5); Lymphocytes Absolute Auto 0.93 K/mm3 (0.9-3.2); Lymphocytes Percent Auto 7.4 % (18.3-44.2); Mean Corpuscular Volume 90.7 fl (80-100); Mean Platelet Volume 11.2 fl (7.4-10.4); Monocytes Absolute Auto 0.8 K/mm3 (0.1-0.6); Monocytes Percent Auto 6.6 % (2.6-8.5); Neutrophils Absolute Auto 10.7 K/mm3 (1.3-6.7); Neutrophils Percent Auto 84.6 % (45.5-73.1); Platelet Count Result 71 k/mm3 (150-375); Red Blood Count 2.79 M/mm3 (4.2-5.4); Red Cell Distribution Width 15.9 % (11.5-14.5); White Blood Count 12.6 K/mm3 (4.5-10.0)
[2024-10-31 07:14] LABS: Large Platelets Present; Platelet Estimate Decreased (Adequate); Schistocytes None Seen
[2024-10-31 07:15] LABS: Anisocytosis 1+; Ovalocytes 1+
--- NOTE | 2024-10-31 07:33 | ECG_ITS ---
Test Date: 2024-10-31 08:05:24 Measurements Intervals [place] Rate: 45 P: 64 WI: 160 QRS: 60 QRSD: 102 T: 58 QT: 503 QTc: 439 Interpretive Statements SINUS BRADYCARDIA OTHERWISE NORMAL ECG Compared to ECG 10/01/2024 13:26:43 Atrial flutter no longer present Electronically Signed On 10-31-2024 13:31:59 CDT by Jose Mahajan M.D.
--- NOTE | 2024-10-31 08:37 | P.PNINT_ITS ---
Progress Note: A&P Assessment and Plan (1) Cholelithiasis with choledocholithiasis: Code(s): K80.70 - Calculus of gallbladder and bile duct without cholecystitis without obstruction Status: Acute Assessment and Plan: Patient patient with choledocholithiasis and cholecystitis -10/29: Status post: Attempted laparoscopic cholecystectomy, open cholecystectomy with intraoperative cholangiogram, control hepatic vein hemorrhage -EBL 1000 ml -currently NPO -surgery following the patient (2) Septic shock: Code(s): A41.9 - Sepsis, unspecified organism; R65.21 - Severe sepsis with septic shock Status: Acute Assessment and Plan: Septic shock : Etiology postoperatively, he decrease resuscitation -patient received a total of 5 L of IV fluids in fluid resuscitation -status post IV fluids and albumin for intravascular was expansion - central line was inserted the OR along with arterial line -off Levophed, and all on pressors, maintain SBP > 100 mmHg or MAP > 65 mmHg at all times for adequate end organ perfusion -will wean stress dose steroids -continue Zosyn (10/29) -lactic acid has normalized (3) Acute respiratory failure: Code(s): J96.00 - Acute respiratory failure, unspecified whether with hypoxia or hypercapnia Status: Acute Assessment and Plan: Postoperative acute respiratory failure, patient was intubated during the procedure and remained intubated and transferred to the ICU for further manage -currently on CMV mode of ventilation, peep of 5, 30% FiO2 -ABGs and chest x-ray reviewed, ventilator adjusted -sedated with fentanyl and Versed infusion, maintain RASS of 0 to -2, daily SBT and SAT -given patient received significant amount IV fluids for volume resuscitation and multiple be units of blood products, discussed with surgery, will keep patient intubated today due to fluid shifts and third-spacing -will try SBT in a.m. and evaluate for extubation (4) Postoperative anemia due to acute blood loss: Code(s): D62 - Acute posthemorrhagic anemia Status: Acute Assessment and Plan: Intraoperative hemorrhage with approximately 1000 mL in blood loss -status post 4 units of packed RBCs, 2 units of FFP and 1 unit of cryoprecipitate -continue to monitor CBC -10/30: transfused 1 unit of packed RBCs -hemoglobin stable (5) Elevated LFTs: Code(s): R79.89 - Other specified abnormal findings of blood chemistry Status: Acute Assessment and Plan: Elevated LFTs likely related to hypotension and shock liver -will continue to trend (6) Thrombocytopenia: Code(s): D69.6 - Thrombocytopenia, unspecified Status: Acute Assessment and Plan: Postoperative thrombocytopenia likely related to consumption -could also be related to septic shock and decreased marrow production -10/31: will transfuse 1 unit platelets Plan DVT prophylaxis: SCDs, will discuss with surgery regarding chemoprophylaxis since patient had intraoperative hemorrhage requiring multiple units of packed RBCs Stress ulcer prophylaxis: Protonix IV q.12 hours Nutrition: NPO, will discuss with surgery Code Status: Do not resuscitate Critical Care Time Spent: 34 minutes Due to a high probability of clinically significant, life threatening deterioration, the patient required my highest level of preparedness to inte rvene emergently and I personally spent this critical care time directly and personally managing the patient. This critical care time included obtaining a history; examining the patient; pulse oximetry; ordering and review of studies; arranging urgent treatment with development of a management plan; evaluation of patient's response to treatment; frequent reassessment; and discussions with other providers. It was exclusive of separately billable procedures and treating other patients and teaching time. Please see Assessment and Plan section and the rest of the note for further information on patient assessment and treatment This dictation may have been done utilizing a voice recognition system. Attempts have been made to correct errors. However, there may be uncorrected grammatical, spelling, and recognitions errors present. Subjective Date/time seen: 10/31/24 08:37 Interval history: Reason for consult: Septic shock, acute respiratory failure, anemia secondary to bleeding during procedure, status post multiple units of blood products, lactic acidosis Twenty-five: Patient seen examined the ICU, remains intubated on CMV mode of ventilation, peep of 5, 30% FiO2. Sedated with fentanyl and Versed infusion, tries to open her eyes, does not follow simple commands today. Off Levophed since midnight. Afebrile, urine output has been adequate, hemodynamically stable. Patient has been bradycardic, asked the bedside RN to decreased her Versed and fentanyl, with improvement in heart rate Review of Systems Review of Systems: ROS unobtainable: Yes unobtainable due to endotracheal tube, unobtainable due to medical condition and unobtainable due to mental status Exam Narrative: General: Patient intubated and sedated, in no acute distress HEENT:? Pupils equal reactive, sclerae is clear, ETT in place Neck:? Supple Respiratory:? Coarse breath sounds bilaterally, decreased at bases, no rales or wheezing noted, adequate air entry Cardiac:? S1-S2 is normal regular rate and rhythm Abdomen:? Soft, tender to palpation, hypoactive bowel sounds, nondistended. HUMAIRA drain in place Extremities:? Bilateral lower extremities are contracted, bilateral lower extremity and pedal edema, palpable pedal pulses Neuro:? Patient is intubated, sedated tries to open her eyes, does not follow simple commands this morning, lower extremities are contracted Skin:? No skin lesions noted other than the midline incision which is covered under dressing, clean dry and intact Psych:? Unable to assess at this time Objective Data Vital Signs Vital Signs: Vital Signs - 24 hr 10/30/24 09:05 10/30/24 09:06 10/30/24 09:28 Temperature Pulse Rate 93 95 84 Respiratory Rate 14 14 Blood Pressure 149/73 H Pulse Oximetry Oxygen Delivery Fraction of Inspired Oxygen 10/30/24 09:43 10/30/24 09:44 10/30/24 10:00 Temperature Pulse Rate 78 75 98 Respiratory Rate Blood Pressure 134/66 132/65 130/82 Pulse Oximetry Oxygen Delivery Fraction of Inspired Oxygen 10/30/24 10:00 10/30/24 10:00 10/30/24 10:00 Temperature Pulse Rate 89 90 100 Respiratory Rate 14 14 Blood Pressure Pulse Oximetry Oxygen Delivery Fraction of Inspired Oxygen 10/30/24 10:00 10/30/24 11:02 10/30/24 11:45 Temperature Pulse Rate 93 94 97 Respiratory Rate 14 Blood Pressure 110/68 89/62 L Pulse Oximetry 100 100 Oxygen Delivery Mechanical Ventilation Fraction of Inspired Oxygen 30 10/30/24 12:00 10/30/24 12:00 10/30/24 12:00 Temperature Pulse Rate 80 Respiratory Rate Blood Pressure Pulse Oximetry 98 Oxygen Delivery Mechanical Ventilation Fraction of Inspired Oxygen 30 30 10/30/24 12:00 10/30/24 12:00 10/30/24 12:00 Temperature 98 F Pulse Rate 78 84 84 Respiratory Rate 14 14 14 Blood Pressure 113/65 Pulse Oximetry 98 Oxygen Delivery Fraction of Inspired Oxygen 10/30/24 13:05 10/30/24 13:10 10/30/24 13:15 Temperature Pulse Rate 97 89 75 Respiratory Rate Blood Pressure 77/53 L 99/60 L 117/64 Pulse Oximetry Oxygen Delivery Fraction of Inspired Oxygen 10/30/24 14:00 10/30/24 14:00 10/30/24 14:00 Temperature Pulse Rate 70 70 78 Respiratory Rate 14 14 Blood Pressure 120/65 Pulse Oximetry 98 Oxygen Delivery Fraction of Inspired Oxygen 10/30/24 14:00 10/30/24 14:16 10/30/24 14:40 Temperature Pulse Rate 78 72 79 Respiratory Rate 14 Blood Pressure 128/66 Pulse Oximetry 97 Oxygen Delivery Mechanical Ventilation Fraction of Inspired Oxygen 30 10/30/24 15:02 10/30/24 16:00 10/30/24 16:00 Temperature 98.4 F Pulse Rate 111 H 95 Respiratory Rate 16 Blood Pressure 130/77 115/70 Pulse Oximetry 95 96 Oxygen Delivery Mechanical Ventilation Fraction of Inspired Oxygen 30 10/30/24 16:00 10/30/24 16:00 10/30/24 16:00 Temperature Pulse Rate 94 102 H Respiratory Rate 16 Blood Pressure Pulse Oximetry Oxygen Delivery Fraction of Inspired Oxygen 30 10/30/24 16:00 10/30/24 16:00 10/30/24 17:08 Temperature Pulse Rate 102 H 102 H 86 Respiratory Rate 16 15 Blood Pressure 119/61 Pulse Oximetry Oxygen Delivery Fraction of Inspired Oxygen 10/30/24 17:08 10/30/24 17:40 10/30/24 18:00 Temperature Pulse Rate 85 80 85 Respiratory Rate 15 Blood Pressure 125/69 Pulse Oximetry 98 Oxygen Delivery Mechanical Ventilation Fraction of Inspired Oxygen 30 10/30/24 18:00 10/30/24 18:00 10/30/24 18:00 Temperature Pulse Rate 87 89 78 Respiratory Rate 14 14 Blood Pressure Pulse Oximetry Oxygen Delivery Fraction of Inspired Oxygen 10/30/24 18:00 10/30/24 18:49 10/30/24 19:00 Temperature Pulse Rate 77 75 77 Respiratory Rate 12 13 Blood Pressure 99/68 L 95/69 L Pulse Oximetry 100 99 Oxygen Delivery Fraction of Inspired Oxygen 10/30/24 19:15 10/30/24 19:30 10/30/24 19:45 Temperature Pulse Rate 72 74 78 Respiratory Rate 13 13 14 Blood Pressure Pulse Oximetry 99 99 98 Oxygen Delivery Fraction of Inspired Oxygen 10/30/24 20:00 10/30/24 20:00 10/30/24 20:00 Temperature 98.2 F Pulse Rate 72 72 70 Respiratory Rate 13 13 Blood Pressure 116/68 116/68 Pulse Oximetry 99 Oxygen Delivery Fraction of Inspired Oxygen 10/30/24 20:00 10/30/24 20:00 10/30/24 20:00 Temperature Pulse Rate 70 72 Respiratory Rate 13 Blood Pressure Pulse Oximetry 99 Oxygen Delivery Mechanical Ventilation Fraction of Inspired Oxygen 30 10/30/24 20:00 10/30/24 20:00 10/30/24 20:01 Temperature Pulse Rate 70 75 Respiratory Rate 13 14 Blood Pressure 126/63 Pulse Oximetry 99 99 Oxygen Delivery Fraction of Inspired Oxygen 30 10/30/24 20:15 10/30/24 20:17 10/30/24 20:30 Temperature Pulse Rate 70 70 88 Respiratory Rate 12 12 Blood Pressure Pulse Oximetry 99 99 98 Oxygen Delivery Mechanical Ventilation Fraction of Inspired Oxygen 30 10/30/24 20:34 10/30/24 20:45 10/30/24 20:53 Temperature 99.2 F 99.1 F Pulse Rate 73 72 66 Respiratory Rate 13 13 12 Blood Pressure 98/72 L 106/77 Pulse Oximetry 99 99 99 Oxygen Delivery Fraction of Inspired Oxygen 10/30/24 21:00 10/30/24 21:12 10/30/24 21:15 Temperature Pulse Rate 64 64 70 Respiratory Rate 12 12 Blood Pressure 137/66 Pulse Oximetry 99 99 Oxygen Delivery Fraction of Inspired Oxygen 10/30/24 21:30 10/30/24 21:45 10/30/24 21:53 Temperature 98.2 F Pulse Rate 61 67 62 Respiratory Rate 12 11 L 26 H Blood Pressure 142/76 H Pulse Oximetry 99 99 99 Oxygen Delivery Fraction of Inspired Oxygen 10/30/24 22:00 10/30/24 22:00 10/30/24 22:00 Temperature 98.0 F Pulse Rate 62 62 62 Respiratory Rate 12 12 Blood Pressure 147/74 H 145/72 H Pulse Oximetry 99 Oxygen Delivery Fraction of Inspired Oxygen 10/30/24 22:00 10/30/24 22:00 10/30/24 22:15 Temperature Pulse Rate 62 62 69 Respiratory Rate 12 Blood Pressure 161/80 H Pulse Oximetry Oxygen Delivery Fraction of Inspired Oxygen 10/30/24 22:38 10/30/24 22:47 10/30/24 22:53 Temperature 98.0 F Pulse Rate 59 L 60 55 L Respiratory Rate 11 L 11 L Blood Pressure 144/71 H 118/63 Pulse Oximetry 99 99 Oxygen Delivery Fraction of Inspired Oxygen 10/30/24 23:05 10/30/24 23:17 10/31/24 00:00 Temperature Pulse Rate 66 68 54 L Respiratory Rate 15 14 Blood Pressure Pulse Oximetry 99 99 Oxygen Delivery Mechanical Ventilation Mechanical Ventilation Fraction of Inspired Oxygen 30 30 10/31/24 00:00 10/31/24 00:00 10/31/24 00:00 Temperature 97.9 F Pulse Rate 54 L 54 L Respiratory Rate 13 Blood Pressure 123/61 123/61 Pulse Oximetry 99 Oxygen Delivery Fraction of Inspired Oxygen 30 10/31/24 00:00 10/31/24 00:42 10/31/24 01:04 Temperature 97.3 F L Pulse Rate 54 L 58 L 73 Respiratory Rate 13 12 14 Blood Pressure 117/60 Pulse Oximetry 99 Oxygen Delivery Fraction of Inspired Oxygen 10/31/24 01:56 10/31/24 02:00 10/31/24 02:00 Temperature Pulse Rate 68 621 H 62 Respiratory Rate 12 Blood Pressure 102/53 L Pulse Oximetry 99 99 Oxygen Delivery Mechanical Ventilation Fraction of Inspired Oxygen 30 10/31/24 02:00 10/31/24 02:00 10/31/24 02:00 Temperature Pulse Rate 62 62 62 Respiratory Rate 12 12 Blood Pressure 102/53 L Pulse Oximetry Oxygen Delivery Fraction of Inspired Oxygen 10/31/24 02:21 10/31/24 03:29 10/31/24 03:31 Temperature Pulse Rate 55 L 53 L 60 Respiratory Rate 12 Blood Pressure 90/49 L 154/70 H Pulse Oximetry Oxygen Delivery Fraction of Inspired Oxygen 10/31/24 03:31 10/31/24 03:45 10/31/24 03:45 Temperature Pulse Rate 60 66 66 Respiratory Rate 12 12 12 Blood Pressure Pulse Oximetry Oxygen Delivery Fraction of Inspired Oxygen 10/31/24 04:00 10/31/24 04:00 10/31/24 04:00 Temperature Pulse Rate 59 L 59 L Respiratory Rate 13 Blood Pressure Pulse Oximetry 100 Oxygen Delivery Mechanical Ventilation Fraction of Inspired Oxygen 30 30 10/31/24 04:00 10/31/24 04:00 10/31/24 05:36 Temperature 98.1 F Pulse Rate 59 L 59 L 59 L Respiratory Rate 13 13 13 Blood Pressure 106/57 L Pulse Oximetry 100 Oxygen Delivery Fraction of Inspired Oxygen 10/31/24 05:39 10/31/24 06:00 10/31/24 06:00 Temperature Pulse Rate 56 L 56 L 56 L Respiratory Rate 12 Blood Pressure 131/64 Pulse Oximetry 100 100 Oxygen Delivery Mechanical Ventilation Fraction of Inspired Oxygen 30 10/31/24 07:44 10/31/24 07:54 10/31/24 08:00 Temperature 97.7 F Pulse Rate 48 L 46 L 40 L Respiratory Rate 12 13 Blood Pressure 115/55 L Pulse Oximetry 100 100 Oxygen Delivery Mechanical Ventilation Fraction of Inspired Oxygen 30 10/31/24 08:00 10/31/24 08:14 10/31/24 08:23 Temperature 97.7 F Pulse Rate 40 L 48 L 45 L Respiratory Rate 13 13 12 Blood Pressure 119/58 L Pulse Oximetry 100 Oxygen Delivery Fraction of Inspired Oxygen 10/31/24 08:24 Temperature Pulse Rate 45 L Respiratory Rate 12 Blood Pressure Pulse Oximetry Oxygen Delivery Fraction of Inspired Oxygen Intake/Output Intake/Output: Intake & Output 10/28/24 10/29/24 10/30/24 10/31/24 23:59 23:59 23:59 23:59 Intake Total 547.5 3189.6 6289.3 809.4 Output Total 3150 2450 975 940 Balance -2602.5 739.6 5314.3 -130.6 Meds/Results Medications: Active Medications Generic Name Dose Route Start Last Admin Trade Name Freq PRN Reason Stop Dose Admin Acetaminophen 1,000 mg 10/25/24 08:02 Acetaminophen 500 Mg Tablet PO Q6H PRN Pain 1-3 or fever Docusate Sodium 100 mg 10/25/24 09:00 10/29/24 18:29 Docusate Sodium 100 Mg Capsule PO Not Given BID SONIA Fentanyl Citrate 12.5 mcg 10/29/24 19:12 Fentanyl Citrate Inj (*Crx) 100 Mcg/2 Ml Vial IV PUSH Q2H PRN Breakthrough Pain Rated 4-6 or NPO Fentanyl Citrate 25 mcg 10/29/24 19:12 Fentanyl Citrate Inj (*Crx) 100 Mcg/2 Ml Vial IV PUSH Q2H PRN Breakthrough Pain Rated 7-10 or NPO Hydrocortisone Sodium Succinate 100 mg 10/30/24 04:00 10/31/24 03:58 Hydrocortisone Sodium Succinate 100 Mg/2 Ml Vial IV PUSH 100 mg Q8H SONIA Administration Hydroxyzine Pamoate 25 mg 10/25/24 17:00 10/29/24 18:29 Hydroxyzine Pamoate 25 Mg Capsule PO Not Given BID SONIA Levetiracetam 750 mg/ Dextrose 107.5 mls @ 430 mls/hr 10/28/24 21:00 10/30/24 22:00 IVPB Infused Q12H SONIA Infusion Fentanyl Citrate 2,500 mcg in 250 mls @ 5 mls/hr 10/29/24 19:10 10/31/24 08:23 Fentanyl 2,500 Mcg/Ns 250 Ml IV CONT 50 mcg/hr .Q50H SONIA 5 mls/hr Titration Protocol 50 MCG/HR Midazolam HCl 100 mg in 100 mls @ 2 mls/hr 10/29/24 19:10 10/31/24 08:24 Versed 100 Mg/Ns 100 Ml IV CONT 2 mg/hr .Q50H SONIA 2 mls/hr Titration Protocol 2 MG/HR Lactated Ringer's 1,000 mls @ 75 mls/hr 10/29/24 19:12 10/31/24 05:36 Lr - Lactated Ringers Iv IV CONT 75 mls/hr .[id number] SONIA Infusion Norepinephrine Bitartrate 8 mg in 250 mls @ 3.75 mls/hr 10/29/24 19:30 10/31/24 03:29 Levophed 8 Mg/D5w 250 Ml IV CONT Infused .Q24H SONIA Titration Protocol 2 MCG/MIN Piperacillin/Tazobactam/Dextrose 3.375 gm in 50 mls @ 100 mls/hr 10/29/24 21:00 10/31/24 05:33 Zosyn 3.375 Gm/Ns 50 Ml IVPB Infused Q6H SONIA Infusion Sodium Chloride 250 mls @ 30 mls/hr 10/31/24 06:22 Normal Saline Iv IV CONT 10/31/24 14:41 .Q8H20M STA Irbesartan 75 mg 10/25/24 09:00 10/29/24 08:47 Irbesartan 75 Mg Tablet PO Not Given DAILY SONIA Lactobacillus Acidophilus 1 tablet 10/25/24 09:00 10/29/24 08:47 Acidophilus/Bulgaricus Chewable Tablet PO Not Given DAILY SONIA Magnesium Oxide 400 mg 10/25/24 09:00 10/29/24 08:47 Magnesium Oxide 400 Mg Tablet PO Not Given DAILY SONIA Mirtazapine 15 mg 10/25/24 21:00 10/29/24 23:40 Mirtazapine 15 Mg Tablet PO 15 mg HS SONIA Administration Montelukast Sodium 10 mg 10/25/24 21:00 10/29/24 23:40 Montelukast Sodium 10 Mg Tablet PO 10 mg HS SONIA Administration Multi-Ingred Cream/Lotion/Oil/Oint 1 applic 10/29/24 21:00 10/30/24 21:00 Mineral Oil/White Petrolatum Ointment EACH EYE 1 applic Q12HR SONIA Administration Multivitamins/Calcium 1 tablet 10/25/24 09:00 10/29/24 08:47 Therapeutic Multivitamins/Minerals Tab (*Bkc) PO Not Given DAILY SONIA Ondansetron HCl 4 mg 10/29/24 14:00 Ondansetron Inj 4 Mg/2 Ml Vial IV PUSH ONCE PRN Nausea Oxycodone HCl 5 mg 10/25/24 08:02 Oxycodone Hcl (*Crx) 5 Mg Tab Ir PO Q4H PRN Pain Rated 7-10 Pantoprazole Sodium 20 mg 10/25/24 09:00 10/29/24 23:40 Pantoprazole Sod Sesquihydrate 20 Mg Tab PO 20 mg Q12HR SONIA Administration Pantoprazole Sodium 40 mg 10/30/24 09:00 10/30/24 20:27 Pantoprazole Sodium Iv 40 Mg Vial IV PUSH 40 mg Q12HR SONIA Administration Perflutren Lipid Microsphere 0 ml 10/31/24 07:33 Perflutren Lipid Microspheres 1.5 Ml Vial Diluted To 10 Ml Total Volume IV PUSH 11/03/24 07:33 ONCE PRN adequate visualization Protocol Potassium Chloride 10 meq 10/25/24 09:00 10/29/24 18:29 Potassium Chloride 10 Meq Er Tablet PO Not Given BID SONIA Simvastatin 20 mg 10/25/24 21:00 10/29/24 23:41 Simvastatin 20 Mg Tablet PO 20 mg HS SONIA Administration Sodium Chloride 10 ml 10/29/24 22:00 10/31/24 05:55 Central Line Flush IV PUSH 10 ml Q8HR SONIA Administration Sodium Chloride 20 ml 10/29/24 19:51 Central Line Flush IV PUSH PRN PRN after blood draws Sucralfate 1 gm 10/25/24 16:30 10/30/24 05:15 Sucralfate 1 Gm Tablet PO Not Given BIDAC [facility] Vitamin D 4,000 units 10/25/24 09:00 10/29/24 08:47 Cholecalciferol 1,000 Units Tablet PO Not Given DAILY [facility] Radiology Results: ITS Impressions Abdomen/Pelvis CT 10/24/24 19:41 IMPRESSION: 1. No evidence of appendicitis, diverticulitis or intestinal obstruction. 2. Highly suggestive of abscess in the right pararectal area. 3. Markedly thickened rectal wall with distended colon by gases. Further evaluation of the rectum is advised. 4. Hypodensities in both kidneys which may indicate pyelonephritis. Dilated ureters are also noted. 5. Thickened wall of the urinary bladder which may indicate cystitis versus infiltrative process. Further evaluation advised. 6. Intrahepatic and extrahepatic biliary dilatation. 7. Cholelithiasis. 8. Hepatomegaly. Enema w/Water Soluble 10/25/24 14:02 IMPRESSION: 1. Moderate amount of scattered colonic stool suggestive of constipation with no evident strictures/obstruction. MRCP 10/27/24 14:28 IMPRESSION: 1. Mild intra and extra hepatic biliary ductal dilation with both cholelithiasis and choledocholithiasis which does not appear currently obstructing. 2. Very small bilateral posterior layering pleural effusions. 3. Mild bilateral hydronephrosis. Cholangiogram,Operative 10/29/24 17:33 IMPRESSION: 1. Contrast injection delineates slowly mobile nonobstructing material within the dilated common hepatic and bile ducts the appearance of which favors sludge over very small gallstones. Chest X-Ray 10/31/24 05:57 Impression: Support tubes, as above. Left lower lobe atelectasis versus pneumonia. Labs Labs: Laboratory Results - last 24 hr 10/27/24 10/30/24 10/30/24 07:06 12:08 18:43 WBC 16.0 H 15.4 H RBC 2.86 L 2.64 L Hgb 8.3 L 7.7 L Hct 25.1 L 23.3 L MCV 87.8 88.3 MCH 29.0 29.2 MCHC 33.1 33.0 RDW 15.6 H 15.9 H Plt Count 101 L 114 L MPV 10.3 10.3 Immature Gran % (Auto) Neut % (Auto) Lymph % (Auto) [place] % (Auto) Eos % (Auto) Baso % (Auto) Lymph # (Auto) [place] # (Auto) Eos # (Auto) Baso # (Auto) Abs Immat Gran (auto) Absolute Neuts (auto) Absolute Nucleated RBC Band Neutrophils % Nucleated RBC % Platelet Estimate Large Platelets % Immature Plt Fraction 4.7 Anisocytosis Ovalocytes Schistocytes PT INR APTT Puncture Site ABG pH ABG pCO2 ABG pO2 ABG PO2/FiO2 Ratio ABG HCO3 ABG O2 Saturation ABG O2 Content ABG Base Excess A-a Gradient Oxyhemoglobin Carboxyhemoglobin Methemoglobin Reduced Hemoglobin Total Hemoglobin O2 Delivery Device O2 Liters/Min Minute Volume Vent Rate Vent Mode FiO2 Tidal Volume PEEP Peak Inspir Pressure Pressure Support Sodium Potassium Chloride Carbon Dioxide Anion Gap BUN Creatinine Estim Creat Clear Calc Estimated GFR Glucose Lactic Acid 1.5 Calcium Total Bilirubin AST ALT Alkaline Phosphatase Total Protein Albumin Blood Type O Positive Antibody Screen Negative Crossmatch See Detail 10/30/24 10/31/24 10/31/24 20:31 00:44 05:03 WBC 12.7 H 12.6 H RBC 2.88 L Hgb 8.5 L Hct 25.8 L MCV 89.6 MCH 29.5 MCHC 32.9 RDW 15.8 H Plt Count 83 L MPV 10.3 Immature Gran % (Auto) Neut % (Auto) Lymph % (Auto) [place] % (Auto) Eos % (Auto) Baso % (Auto) Lymph # (Auto) [place] # (Auto) Eos # (Auto) Baso # (Auto) Abs Immat Gran (auto) Absolute Neuts (auto) Absolute Nucleated RBC Band Neutrophils % Nucleated RBC % Platelet Estimate Large Platelets % Immature Plt Fraction 5.1 Anisocytosis Ovalocytes Schistocytes PT INR APTT Puncture Site ABG pH ABG pCO2 ABG pO2 ABG PO2/FiO2 Ratio ABG HCO3 ABG O2 Saturation ABG O2 Content ABG Base Excess A-a Gradient Oxyhemoglobin Carboxyhemoglobin Methemoglobin Reduced Hemoglobin Total Hemoglobin O2 Delivery Device O2 Liters/Min Minute Volume Vent Rate Vent Mode FiO2 Tidal Volume PEEP Peak Inspir Pressure Pressure Support Sodium Potassium Chloride Carbon Dioxide Anion Gap BUN Creatinine Estim Creat Clear Calc Estimated GFR Glucose Lactic Acid Calcium Total Bilirubin AST ALT Alkaline Phosphatase Total Protein Albumin Blood Type O Positive Antibody Screen Negative Crossmatch 10/31/24 10/31/24 10/31/24 05:03 05:03 05:03 WBC 12.3 H RBC 2.79 L 2.92 L Hgb 8.1 L 8.6 L Hct 25.3 L MCV MCH MCHC RDW Plt Count MPV Immature Gran % (Auto) Neut % (Auto) Lymph % (Auto) [place] % (Auto) Eos % (Auto) Baso % (Auto) Lymph # (Auto) [place] # (Auto) Eos # (Auto) Baso # (Auto) Abs Immat Gran (auto) Absolute Neuts (auto) Absolute Nucleated RBC Band Neutrophils % Nucleated RBC % Platelet Estimate Large Platelets % Immature Plt Fraction Anisocytosis Ovalocytes Schistocytes PT INR APTT Puncture Site ABG pH ABG pCO2 ABG pO2 ABG PO2/FiO2 Ratio ABG HCO3 ABG O2 Saturation ABG O2 Content ABG Base Excess A-a Gradient Oxyhemoglobin Carboxyhemoglobin Methemoglobin Reduced Hemoglobin Total Hemoglobin O2 Delivery Device O2 Liters/Min Minute Volume Vent Rate Vent Mode FiO2 Tidal Volume PEEP Peak Inspir Pressure Pressure Support Sodium Potassium Chloride Carbon Dioxide Anion Gap BUN Creatinine Estim Creat Clear Calc Estimated GFR Glucose Lactic Acid Calcium Total Bilirubin AST ALT Alkaline Phosphatase Total Protein Albumin Blood Type Antibody Screen Crossmatch 10/31/24 10/31/24 10/31/24 05:03 05:03 05:03 WBC RBC Hgb Hct 25.8 L MCV 90.7 88.4 MCH 29.0 29.5 MCHC 32.0 RDW Plt Count MPV Immature Gran % (Auto) Neut % (Auto) Lymph % (Auto) [place] % (Auto) Eos % (Auto) Baso % (Auto) Lymph # (Auto) [place] # (Auto) Eos # (Auto) Baso # (Auto) Abs Immat Gran (auto) Absolute Neuts (auto) Absolute Nucleated RBC Band Neutrophils % Nucleated RBC % Platelet Estimate Large Platelets % Immature Plt Fraction Anisocytosis Ovalocytes Schistocytes PT INR APTT Puncture Site ABG pH ABG pCO2 ABG pO2 ABG PO2/FiO2 Ratio ABG HCO3 ABG O2 Saturation ABG O2 Content ABG Base Excess A-a Gradient Oxyhemoglobin Carboxyhemoglobin Methemoglobin Reduced Hemoglobin Total Hemoglobin O2 Delivery Device O2 Liters/Min Minute Volume Vent Rate Vent Mode FiO2 Tidal Volume PEEP Peak Inspir Pressure Pressure Support Sodium Potassium Chloride Carbon Dioxide Anion Gap BUN Creatinine Estim Creat Clear Calc Estimated GFR Glucose Lactic Acid Calcium Total Bilirubin AST ALT Alkaline Phosphatase Total Protein Albumin Blood Type Antibody Screen Crossmatch 10/31/24 10/31/24 10/31/24 05:03 05:03 05:03 WBC RBC Hgb Hct MCV MCH MCHC 33.3 RDW 15.9 H 16.0 H Plt Count 71 L 68 L MPV 11.2 H Immature Gran % (Auto) Neut % (Auto) Lymph % (Auto) [place] % (Auto) Eos % (Auto) Baso % (Auto) Lymph # (Auto) [place] # (Auto) Eos # (Auto) Baso # (Auto) Abs Immat Gran (auto) Absolute Neuts (auto) Absolute Nucleated RBC Band Neutrophils % Nucleated RBC % Platelet Estimate Large Platelets % Immature Plt Fraction Anisocytosis Ovalocytes Schistocytes PT INR APTT Puncture Site ABG pH ABG pCO2 ABG pO2 ABG PO2/FiO2 Ratio ABG HCO3 ABG O2 Saturation ABG O2 Content ABG Base Excess A-a Gradient Oxyhemoglobin Carboxyhemoglobin Methemoglobin Reduced Hemoglobin Total Hemoglobin O2 Delivery Device O2 Liters/Min Minute Volume Vent Rate Vent Mode FiO2 Tidal Volume PEEP Peak Inspir Pressure Pressure Support Sodium Potassium Chloride Carbon Dioxide Anion Gap BUN Creatinine Estim Creat Clear Calc Estimated GFR Glucose Lactic Acid Calcium Total Bilirubin AST ALT Alkaline Phosphatase Total Protein Albumin Blood Type Antibody Screen Crossmatch 10/31/24 10/31/24 05:03 05:39 WBC RBC Hgb Hct MCV MCH MCHC RDW Plt Count MPV 11.0 H Immature Gran % (Auto) 1.1 H Neut % (Auto) 84.6 H Lymph % (Auto) 7.4 L [place] % (Auto) 6.6 Eos % (Auto) 0.0 Baso % (Auto) 0.3 Lymph # (Auto) 0.93 [place] # (Auto) 0.8 H Eos # (Auto) 0.0 Baso # (Auto) 0.0 Abs Immat Gran (auto) 0.14 H Absolute Neuts (auto) 10.7 H Absolute Nucleated RBC 0.000 Band Neutrophils % Not Reportable Nucleated RBC % 0.0 Platelet Estimate Decreased Large Platelets Present % Immature Plt Fraction Anisocytosis 1+ Ovalocytes 1+ Schistocytes None seen PT 16.3 H INR 1.3 APTT 30.4 Puncture Site Artline ABG pH 7.414 ABG pCO2 33.8 L ABG pO2 103.8 H ABG PO2/FiO2 Ratio 3.46 ABG HCO3 21.1 L ABG O2 Saturation 97.9 ABG O2 Content 12.2 L ABG Base Excess -3.0 A-a Gradient 70.4 Oxyhemoglobin 97.0 Carboxyhemoglobin 0.6 Methemoglobin 0.0 Reduced Hemoglobin 2.4 Total Hemoglobin 8.8 L O2 Delivery Device Ventilator O2 Liters/Min Not Reportable Minute Volume Not Reportable Vent Rate 12 Vent Mode Cmv FiO2 30 Tidal Volume 400 PEEP 5 Peak Inspir Pressure Not Reportable Pressure Support Not Reportable Sodium 138 Potassium 4.0 Chloride 108 H Carbon Dioxide 27 Anion Gap 3 L BUN 16 Creatinine 1.02 H Estim Creat Clear Calc 41 Estimated GFR 54 L Glucose 115 H Lactic Acid 0.9 Calcium 7.6 L Total Bilirubin 0.6 AST 333 H ALT 252 H Alkaline Phosphatase 55 Total Protein 4.0 L Albumin 2.3 L Blood Type Antibody Screen Crossmatch Quality VTE Prophylaxis VTE prophylaxis: mechanical ordered
[2024-10-31] MEDS: PANTOPRAZOLE SODIUM IV 40 MG VIAL IV PUSH ×2 (08:50→21:18)
[2024-10-31] MEDS: levETIRAcetam IV 750 MG in DEXTROSE 5% 100 ML 430 MG IVPB ×2 (08:50→21:18)
[2024-10-31] MEDS: SODIUM CHLORIDE 0.9% IV 250 ML 30 ML IV CONT (09:30)
[2024-10-31] MEDS: dexmedeTOMIDine 400 MCG/100 ML 400 MCG/100 ML BAG IV CONT (11:00)
[2024-10-31] MEDS: MINERAL OIL/WHITE PETROLATUM OINTMENT 1 APPLIC EACH EYE ×2 (11:10→21:19)
--- NOTE | 2024-10-31 13:21 | PM.PNGS ---
Progress Note: A&P Assessment and Plan (1) Chronic cholecystitis due to cholelithiasis with choledocholithiasis: Code(s): K80.64 - Calculus of gallbladder and bile duct with chronic cholecystitis without obstruction Status: Acute Assessment and Plan: Postop day 2., okay to start trickle feeds. Discussed this with Dr. Loco. HUMAIRA drain showing increased output which is serosanguineous but mostly bloody. No sign of bile. Continues to improve. Continue Zosyn (2) Acute respiratory failure: Code(s): J96.00 - Acute respiratory failure, unspecified whether with hypoxia or hypercapnia Status: Acute Assessment and Plan: To have breathing trial this afternoon (3) Postoperative hemorrhagic shock: Code(s): T81.19XA - Other postprocedural shock, initial encounter Status: Acute Assessment and Plan: On minimal dose of Levophed. To have breathing trial and will get some platelets today. Discussed with Dr. Loco (4) Chronic indwelling White catheter: Code(s): Z97.8 - Presence of other specified devices Status: Chronic (5) Postoperative anemia due to acute blood loss: Code(s): D62 - Acute posthemorrhagic anemia Status: Acute (6) Dementia: Code(s): F03.90 - Unspecified dementia, unspecified severity, without behavioral disturbance, psychotic disturbance, mood disturbance, and anxiety Status: Chronic Subjective Subjective Date/Time Seen: 10/31/24 13:21 Post Op day: 2 Patient reports: other (Still intubated, arouses) Exam Const: General: awake and tired appearing GI: Inspection: non-distended, incision (Healing, dressing changed), scaphoid and other (Serosanguineous HUMAIRA fluid with increased amount) GI Palp: Yes abdominal tenderness and Yes Soft to palpation Objective Data Vital Signs Vital Signs: Vital Signs - 24 hr 10/30/24 14:00 10/30/24 14:00 10/30/24 14:00 Temperature Pulse Rate 70 70 78 Respiratory Rate 14 14 Blood Pressure 120/65 Pulse Oximetry 98 Oxygen Delivery Fraction of Inspired Oxygen 10/30/24 14:00 10/30/24 14:16 10/30/24 14:40 Temperature Pulse Rate 78 72 79 Respiratory Rate 14 Blood Pressure 128/66 Pulse Oximetry 97 Oxygen Delivery Mechanical Ventilation Fraction of Inspired Oxygen 30 10/30/24 15:02 10/30/24 16:00 10/30/24 16:00 Temperature 36.9 C Pulse Rate 111 H 95 Respiratory Rate 16 Blood Pressure 130/77 115/70 Pulse Oximetry 95 96 Oxygen Delivery Mechanical Ventilation Fraction of Inspired Oxygen 30 10/30/24 16:00 10/30/24 16:00 10/30/24 16:00 Temperature Pulse Rate 94 102 H Respiratory Rate 16 Blood Pressure Pulse Oximetry Oxygen Delivery Fraction of Inspired Oxygen 30 10/30/24 16:00 10/30/24 16:00 10/30/24 17:08 Temperature Pulse Rate 102 H 102 H 86 Respiratory Rate 16 15 Blood Pressure 119/61 Pulse Oximetry Oxygen Delivery Fraction of Inspired Oxygen 10/30/24 17:08 10/30/24 17:40 10/30/24 18:00 Temperature Pulse Rate 85 80 85 Respiratory Rate 15 Blood Pressure 125/69 Pulse Oximetry 98 Oxygen Delivery Mechanical Ventilation Fraction of Inspired Oxygen 30 10/30/24 18:00 10/30/24 18:00 10/30/24 18:00 Temperature Pulse Rate 87 89 78 Respiratory Rate 14 14 Blood Pressure Pulse Oximetry Oxygen Delivery Fraction of Inspired Oxygen 10/30/24 18:00 10/30/24 18:49 10/30/24 19:00 Temperature Pulse Rate 77 75 77 Respiratory Rate 12 13 Blood Pressure 99/68 L 95/69 L Pulse Oximetry 100 99 Oxygen Delivery Fraction of Inspired Oxygen 10/30/24 19:15 10/30/24 19:30 10/30/24 19:45 Temperature Pulse Rate 72 74 78 Respiratory Rate 13 13 14 Blood Pressure Pulse Oximetry 99 99 98 Oxygen Delivery Fraction of Inspired Oxygen 10/30/24 20:00 10/30/24 20:00 10/30/24 20:00 Temperature 36.8 C Pulse Rate 72 72 70 Respiratory Rate 13 13 Blood Pressure 116/68 116/68 Pulse Oximetry 99 Oxygen Delivery Fraction of Inspired Oxygen 10/30/24 20:00 10/30/24 20:00 10/30/24 20:00 Temperature Pulse Rate 70 72 Respiratory Rate 13 Blood Pressure Pulse Oximetry 99 Oxygen Delivery Mechanical Ventilation Fraction of Inspired Oxygen 30 10/30/24 20:00 10/30/24 20:00 10/30/24 20:01 Temperature Pulse Rate 70 75 Respiratory Rate 13 14 Blood Pressure 126/63 Pulse Oximetry 99 99 Oxygen Delivery Fraction of Inspired Oxygen 30 10/30/24 20:15 10/30/24 20:17 10/30/24 20:30 Temperature Pulse Rate 70 70 88 Respiratory Rate 12 12 Blood Pressure Pulse Oximetry 99 99 98 Oxygen Delivery Mechanical Ventilation Fraction of Inspired Oxygen 30 10/30/24 20:34 10/30/24 20:45 10/30/24 20:53 Temperature 37.3 C 37.3 C Pulse Rate 73 72 66 Respiratory Rate 13 13 12 Blood Pressure 98/72 L 106/77 Pulse Oximetry 99 99 99 Oxygen Delivery Fraction of Inspired Oxygen 10/30/24 21:00 10/30/24 21:12 10/30/24 21:15 Temperature Pulse Rate 64 64 70 Respiratory Rate 12 12 Blood Pressure 137/66 Pulse Oximetry 99 99 Oxygen Delivery Fraction of Inspired Oxygen 10/30/24 21:30 10/30/24 21:45 10/30/24 21:53 Temperature 36.8 C Pulse Rate 61 67 62 Respiratory Rate 12 11 L 26 H Blood Pressure 142/76 H Pulse Oximetry 99 99 99 Oxygen Delivery Fraction of Inspired Oxygen 10/30/24 22:00 10/30/24 22:00 10/30/24 22:00 Temperature 36.7 C Pulse Rate 62 62 62 Respiratory Rate 12 12 Blood Pressure 147/74 H 145/72 H Pulse Oximetry 99 Oxygen Delivery Fraction of Inspired Oxygen 10/30/24 22:00 10/30/24 22:00 10/30/24 22:15 Temperature Pulse Rate 62 62 69 Respiratory Rate 12 Blood Pressure 161/80 H Pulse Oximetry Oxygen Delivery Fraction of Inspired Oxygen 10/30/24 22:38 10/30/24 22:47 10/30/24 22:53 Temperature 36.7 C Pulse Rate 59 L 60 55 L Respiratory Rate 11 L 11 L Blood Pressure 144/71 H 118/63 Pulse Oximetry 99 99 Oxygen Delivery Fraction of Inspired Oxygen 10/30/24 23:05 10/30/24 23:17 10/31/24 00:00 Temperature Pulse Rate 66 68 54 L Respiratory Rate 15 14 Blood Pressure Pulse Oximetry 99 99 Oxygen Delivery Mechanical Ventilation Mechanical Ventilation Fraction of Inspired Oxygen 30 30 10/31/24 00:00 10/31/24 00:00 10/31/24 00:00 Temperature 36.6 C Pulse Rate 54 L 54 L Respiratory Rate 13 Blood Pressure 123/61 123/61 Pulse Oximetry 99 Oxygen Delivery Fraction of Inspired Oxygen 30 10/31/24 00:00 10/31/24 00:42 10/31/24 01:04 Temperature 36.3 C L Pulse Rate 54 L 58 L 73 Respiratory Rate 13 12 14 Blood Pressure 117/60 Pulse Oximetry 99 Oxygen Delivery Fraction of Inspired Oxygen 10/31/24 01:56 10/31/24 02:00 10/31/24 02:00 Temperature Pulse Rate 68 621 H 62 Respiratory Rate 12 Blood Pressure 102/53 L Pulse Oximetry 99 99 Oxygen Delivery Mechanical Ventilation Fraction of Inspired Oxygen 30 10/31/24 02:00 10/31/24 02:00 10/31/24 02:00 Temperature Pulse Rate 62 62 62 Respiratory Rate 12 12 Blood Pressure 102/53 L Pulse Oximetry Oxygen Delivery Fraction of Inspired Oxygen 10/31/24 02:21 10/31/24 03:29 10/31/24 03:31 Temperature Pulse Rate 55 L 53 L 60 Respiratory Rate 12 Blood Pressure 90/49 L 154/70 H Pulse Oximetry Oxygen Delivery Fraction of Inspired Oxygen 10/31/24 03:31 10/31/24 03:45 10/31/24 03:45 Temperature Pulse Rate 60 66 66 Respiratory Rate 12 12 12 Blood Pressure Pulse Oximetry Oxygen Delivery Fraction of Inspired Oxygen 10/31/24 04:00 10/31/24 04:00 10/31/24 04:00 Temperature Pulse Rate 59 L 59 L Respiratory Rate 13 Blood Pressure Pulse Oximetry 100 Oxygen Delivery Mechanical Ventilation Fraction of Inspired Oxygen 30 30 10/31/24 04:00 10/31/24 04:00 10/31/24 05:36 Temperature 36.7 C Pulse Rate 59 L 59 L 59 L Respiratory Rate 13 13 13 Blood Pressure 106/57 L Pulse Oximetry 100 Oxygen Delivery Fraction of Inspired Oxygen 10/31/24 05:39 10/31/24 06:00 10/31/24 06:00 Temperature Pulse Rate 56 L 56 L 56 L Respiratory Rate 12 Blood Pressure 131/64 Pulse Oximetry 100 100 Oxygen Delivery Mechanical Ventilation Fraction of Inspired Oxygen 30 10/31/24 07:44 10/31/24 07:54 10/31/24 08:00 Temperature 36.5 C Pulse Rate 48 L 46 L 40 L Respiratory Rate 12 13 Blood Pressure 115/55 L Pulse Oximetry 100 100 Oxygen Delivery Mechanical Ventilation Fraction of Inspired Oxygen 30 10/31/24 08:00 10/31/24 08:00 10/31/24 08:00 Temperature Pulse Rate 40 L 51 L Respiratory Rate 13 14 Blood Pressure Pulse Oximetry 99 Oxygen Delivery Mechanical Ventilation Fraction of Inspired Oxygen 30 30 10/31/24 08:00 10/31/24 08:14 10/31/24 08:23 Temperature 36.5 C Pulse Rate 46 L 48 L 45 L Respiratory Rate 13 12 Blood Pressure 119/58 L Pulse Oximetry 100 Oxygen Delivery Fraction of Inspired Oxygen 10/31/24 08:24 10/31/24 08:33 10/31/24 09:33 Temperature 36.5 C 36.6 C Pulse Rate 45 L 54 L 51 L Respiratory Rate 12 12 12 Blood Pressure 129/64 118/57 L Pulse Oximetry 100 100 Oxygen Delivery Fraction of Inspired Oxygen 10/31/24 10:00 10/31/24 10:00 10/31/24 10:00 Temperature Pulse Rate 50 L 50 L 58 L Respiratory Rate 12 12 Blood Pressure Pulse Oximetry Oxygen Delivery Fraction of Inspired Oxygen 10/31/24 10:00 10/31/24 10:20 10/31/24 10:30 Temperature 36.6 C Pulse Rate 54 L 51 L 58 L Respiratory Rate 12 12 Blood Pressure 136/67 117/55 L Pulse Oximetry 98 100 100 Oxygen Delivery Mechanical Ventilation Fraction of Inspired Oxygen 30 10/31/24 11:00 10/31/24 11:35 10/31/24 11:36 Temperature Pulse Rate 57 L 59 L 55 L Respiratory Rate 10 L 12 12 Blood Pressure Pulse Oximetry Oxygen Delivery Fraction of Inspired Oxygen 10/31/24 12:00 10/31/24 12:00 10/31/24 12:00 Temperature Pulse Rate 55 L 54 L Respiratory Rate 14 Blood Pressure Pulse Oximetry 99 Oxygen Delivery Mechanical Ventilation Fraction of Inspired Oxygen 30 30 10/31/24 12:00 10/31/24 12:00 10/31/24 12:00 Temperature 36.9 C Pulse Rate 51 L 50 L 50 L Respiratory Rate 12 12 12 Blood Pressure 130/59 L Pulse Oximetry 98 Oxygen Delivery Fraction of Inspired Oxygen 10/31/24 12:49 10/31/24 12:49 10/31/24 12:50 Temperature Pulse Rate 56 L 62 66 Respiratory Rate 10 L 10 L 11 L Blood Pressure Pulse Oximetry Oxygen Delivery Fraction of Inspired Oxygen Intake/Output Intake/Output: Intake & Output 10/28/24 10/29/24 10/30/24 10/31/24 23:59 23:59 23:59 23:59 Intake Total 547.5 3189.6 6289.3 1294.8 Output Total 3150 2450 975 940 Balance -2602.5 739.6 5314.3 354.8 Meds/Results Medications: Active Medications Generic Name Dose Route Start Last Admin Trade Name Freq PRN Reason Stop Dose Admin Acetaminophen 1,000 mg 10/25/24 08:02 Acetaminophen 500 Mg Tablet PO Q6H PRN Pain 1-3 or fever Docusate Sodium 100 mg 10/25/24 09:00 10/29/24 18:29 Docusate Sodium 100 Mg Capsule PO Not Given BID SONIA Fentanyl Citrate 12.5 mcg 10/29/24 19:12 Fentanyl Citrate Inj (*Crx) 100 Mcg/2 Ml Vial IV PUSH Q2H PRN Breakthrough Pain Rated 4-6 or NPO Fentanyl Citrate 25 mcg 10/29/24 19:12 Fentanyl Citrate Inj (*Crx) 100 Mcg/2 Ml Vial IV PUSH Q2H PRN Breakthrough Pain Rated 7-10 or NPO Hydrocortisone Sodium Succinate 50 mg 10/31/24 15:00 Hydrocortisone Sodium Succinate 100 Mg/2 Ml Vial IV PUSH 11/02/24 14:59 Q12H SONIA Hydroxyzine Pamoate 25 mg 10/25/24 17:00 10/29/24 18:29 Hydroxyzine Pamoate 25 Mg Capsule PO Not Given BID SONIA Levetiracetam 750 mg/ Dextrose 107.5 mls @ 430 mls/hr 10/28/24 21:00 10/31/24 09:05 IVPB Infused Q12H SONIA Infusion Fentanyl Citrate 2,500 mcg in 250 mls @ 0 mls/hr 10/29/24 19:10 10/31/24 12:49 Fentanyl 2,500 Mcg/Ns 250 Ml IV CONT 0 mcg/hr .Q0M SONIA 0 mls/hr Titration Protocol Midazolam HCl 100 mg in 100 mls @ 0 mls/hr 10/29/24 19:10 10/31/24 12:49 Versed 100 Mg/Ns 100 Ml IV CONT 0 mg/hr .Q0M SONIA 0 mls/hr Titration Protocol Lactated Ringer's 1,000 mls @ 75 mls/hr 10/29/24 19:12 10/31/24 05:36 Lr - Lactated Ringers Iv IV CONT 75 mls/hr .[id number] SONIA Infusion Norepinephrine Bitartrate 8 mg in 250 mls @ 3.75 mls/hr 10/29/24 19:30 10/31/24 03:29 Levophed 8 Mg/D5w 250 Ml IV CONT Infused .Q24H SONIA Titration Protocol 2 MCG/MIN Piperacillin/Tazobactam/Dextrose 3.375 gm in 50 mls @ 100 mls/hr 10/29/24 21:00 10/31/24 09:19 Zosyn 3.375 Gm/Ns 50 Ml IVPB Infused Q6H SONIA Infusion Sodium Chloride 250 mls @ 30 mls/hr 10/31/24 06:22 Normal Saline Iv IV CONT 10/31/24 14:41 .Q8H20M STA Dexmedetomidine HCl 400 mcg in 100 mls @ 9.013 mls/hr 10/31/24 10:05 10/31/24 12:50 Precedex 400 Mcg/100 Ml IV CONT 0.5 mcg/kg/hr .Q11H6M SONIA 9.01 mls/hr Titration Protocol 0.5 MCG/KG/HR Irbesartan 75 mg 10/25/24 09:00 10/29/24 08:47 Irbesartan 75 Mg Tablet PO Not Given DAILY SONIA Lactobacillus Acidophilus 1 tablet 10/25/24 09:00 10/29/24 08:47 Acidophilus/Bulgaricus Chewable Tablet PO Not Given DAILY SONIA Magnesium Oxide 400 mg 10/25/24 09:00 10/29/24 08:47 Magnesium Oxide 400 Mg Tablet PO Not Given DAILY SONIA Mirtazapine 15 mg 10/25/24 21:00 10/29/24 23:40 Mirtazapine 15 Mg Tablet PO 15 mg HS SONIA Administration Montelukast Sodium 10 mg 10/25/24 21:00 10/29/24 23:40 Montelukast Sodium 10 Mg Tablet PO 10 mg HS SONIA Administration Multi-Ingred Cream/Lotion/Oil/Oint 1 applic 10/29/24 21:00 10/31/24 11:10 Mineral Oil/White Petrolatum Ointment EACH EYE 1 applic Q12HR SONIA Administration Multi-Ingred Cream/Lotion/Oil/Oint 1 applic 10/31/24 21:00 Mineral Oil/White Petrolatum Ointment EACH EYE Q12HR [facility] Multivitamins/Calcium 1 tablet 10/25/24 09:00 10/29/24 08:47 Therapeutic Multivitamins/Minerals Tab (*Bkc) PO Not Given DAILY SONIA Ondansetron HCl 4 mg 10/29/24 14:00 Ondansetron Inj 4 Mg/2 Ml Vial IV PUSH ONCE PRN Nausea Oxycodone HCl 5 mg 10/25/24 08:02 Oxycodone Hcl (*Crx) 5 Mg Tab Ir PO Q4H PRN Pain Rated 7-10 Pantoprazole Sodium 20 mg 10/25/24 09:00 10/29/24 23:40 Pantoprazole Sod Sesquihydrate 20 Mg Tab PO 20 mg Q12HR SONIA Administration Pantoprazole Sodium 40 mg 10/30/24 09:00 10/31/24 08:50 Pantoprazole Sodium Iv 40 Mg Vial IV PUSH 40 mg Q12HR SONIA Administration Perflutren Lipid Microsphere 0 ml 10/31/24 07:33 Perflutren Lipid Microspheres 1.5 Ml Vial Diluted To 10 Ml Total Volume IV PUSH 11/03/24 07:33 ONCE PRN adequate visualization Protocol Potassium Chloride 10 meq 10/25/24 09:00 10/29/24 18:29 Potassium Chloride 10 Meq Er Tablet PO Not Given BID SONIA Simvastatin 20 mg 10/25/24 21:00 10/29/24 23:41 Simvastatin 20 Mg Tablet PO 20 mg HS SONIA Administration Sodium Chloride 10 ml 10/29/24 22:00 10/31/24 05:55 Central Line Flush IV PUSH 10 ml Q8HR SONIA Administration Sodium Chloride 20 ml 10/29/24 19:51 Central Line Flush IV PUSH PRN PRN after blood draws Sucralfate 1 gm 10/25/24 16:30 10/30/24 05:15 Sucralfate 1 Gm Tablet PO Not Given BIDAC [facility] Vitamin D 4,000 units 10/25/24 09:00 10/29/24 08:47 Cholecalciferol 1,000 Units Tablet PO Not Given DAILY SONIA Radiology Results: ITS Impressions Abdomen/Pelvis CT 10/24/24 19:41 IMPRESSION: 1. No evidence of appendicitis, diverticulitis or intestinal obstruction. 2. Highly suggestive of abscess in the right pararectal area. 3. Markedly thickened rectal wall with distended colon by gases. Further evaluation of the rectum is advised. 4. Hypodensities in both kidneys which may indicate pyelonephritis. Dilated ureters are also noted. 5. Thickened wall of the urinary bladder which may indicate cystitis versus infiltrative process. Further evaluation advised. 6. Intrahepatic and extrahepatic biliary dilatation. 7. Cholelithiasis. 8. Hepatomegaly. Enema w/Water Soluble 10/25/24 14:02 IMPRESSION: 1. Moderate amount of scattered colonic stool suggestive of constipation with no evident strictures/obstruction. MRCP 10/27/24 14:28 IMPRESSION: 1. Mild intra and extra hepatic biliary ductal dilation with both cholelithiasis and choledocholithiasis which does not appear currently obstructing. 2. Very small bilateral posterior layering pleural effusions. 3. Mild bilateral hydronephrosis. Cholangiogram,Operative 10/29/24 17:33 IMPRESSION: 1. Contrast injection delineates slowly mobile nonobstructing material within the dilated common hepatic and bile ducts the appearance of which favors sludge over very small gallstones. Chest X-Ray 10/31/24 05:57 Impression: Support tubes, as above. Left lower lobe atelectasis versus pneumonia. Labs Labs: Laboratory Results - last 24 hr 10/27/24 10/30/24 10/30/24 07:06 18:43 20:31 WBC 15.4 H RBC 2.64 L Hgb 7.7 L Hct 23.3 L MCV 88.3 MCH 29.2 MCHC 33.0 RDW 15.9 H Plt Count 114 L MPV 10.3 Immature Gran % (Auto) Neut % (Auto) Lymph % (Auto) Milam % (Auto) Eos % (Auto) Baso % (Auto) Lymph # (Auto) Milam # (Auto) Eos # (Auto) Baso # (Auto) Abs Immat Gran (auto) Absolute Neuts (auto) Absolute Nucleated RBC Band Neutrophils % Nucleated RBC % Platelet Estimate Large Platelets % Immature Plt Fraction 4.7 Anisocytosis Ovalocytes Schistocytes PT INR APTT Puncture Site ABG pH ABG pCO2 ABG pO2 ABG PO2/FiO2 Ratio ABG HCO3 ABG O2 Saturation ABG O2 Content ABG Base Excess A-a Gradient Oxyhemoglobin Carboxyhemoglobin Methemoglobin Reduced Hemoglobin Total Hemoglobin O2 Delivery Device O2 Liters/Min Minute Volume Vent Rate Vent Mode FiO2 Tidal Volume PEEP Peak Inspir Pressure Pressure Support Sodium Potassium Chloride Carbon Dioxide Anion Gap BUN Creatinine Estim Creat Clear Calc Estimated GFR Glucose Lactic Acid Calcium Magnesium Total Bilirubin AST ALT Alkaline Phosphatase Total Protein Albumin Blood Type O Positive O Positive Antibody Screen Negative Negative Crossmatch See Detail 10/31/24 10/31/24 10/31/24 00:44 05:03 05:03 WBC 12.7 H 12.6 H 12.3 H RBC 2.88 L 2.79 L Hgb 8.5 L Hct 25.8 L MCV 89.6 MCH 29.5 MCHC 32.9 RDW 15.8 H Plt Count 83 L MPV 10.3 Immature Gran % (Auto) Neut % (Auto) Lymph % (Auto) Milam % (Auto) Eos % (Auto) Baso % (Auto) Lymph # (Auto) Milam # (Auto) Eos # (Auto) Baso # (Auto) Abs Immat Gran (auto) Absolute Neuts (auto) Absolute Nucleated RBC Band Neutrophils % Nucleated RBC % Platelet Estimate Large Platelets % Immature Plt Fraction 5.1 Anisocytosis Ovalocytes Schistocytes PT INR APTT Puncture Site ABG pH ABG pCO2 ABG pO2 ABG PO2/FiO2 Ratio ABG HCO3 ABG O2 Saturation ABG O2 Content ABG Base Excess A-a Gradient Oxyhemoglobin Carboxyhemoglobin Methemoglobin Reduced Hemoglobin Total Hemoglobin O2 Delivery Device O2 Liters/Min Minute Volume Vent Rate Vent Mode FiO2 Tidal Volume PEEP Peak Inspir Pressure Pressure Support Sodium Potassium Chloride Carbon Dioxide Anion Gap BUN Creatinine Estim Creat Clear Calc Estimated GFR Glucose Lactic Acid Calcium Magnesium Total Bilirubin AST ALT Alkaline Phosphatase Total Protein Albumin Blood Type Antibody Screen Crossmatch 10/31/24 10/31/24 10/31/24 05:03 05:03 05:03 WBC RBC 2.92 L Hgb 8.1 L 8.6 L Hct 25.3 L 25.8 L MCV 90.7 MCH MCHC RDW Plt Count MPV Immature Gran % (Auto) Neut % (Auto) Lymph % (Auto) Milam % (Auto) Eos % (Auto) Baso % (Auto) Lymph # (Auto) Milam # (Auto) Eos # (Auto) Baso # (Auto) Abs Immat Gran (auto) Absolute Neuts (auto) Absolute Nucleated RBC Band Neutrophils % Nucleated RBC % Platelet Estimate Large Platelets % Immature Plt Fraction Anisocytosis Ovalocytes Schistocytes PT INR APTT Puncture Site ABG pH ABG pCO2 ABG pO2 ABG PO2/FiO2 Ratio ABG HCO3 ABG O2 Saturation ABG O2 Content ABG Base Excess A-a Gradient Oxyhemoglobin Carboxyhemoglobin Methemoglobin Reduced Hemoglobin Total Hemoglobin O2 Delivery Device O2 Liters/Min Minute Volume Vent Rate Vent Mode FiO2 Tidal Volume PEEP Peak Inspir Pressure Pressure Support Sodium Potassium Chloride Carbon Dioxide Anion Gap BUN Creatinine Estim Creat Clear Calc Estimated GFR Glucose Lactic Acid Calcium Magnesium Total Bilirubin AST ALT Alkaline Phosphatase Total Protein Albumin Blood Type Antibody Screen Crossmatch 10/31/24 10/31/24 10/31/24 05:03 05:03 05:03 WBC RBC Hgb Hct MCV 88.4 MCH 29.0 29.5 MCHC 32.0 33.3 RDW 15.9 H Plt Count MPV Immature Gran % (Auto) Neut % (Auto) Lymph % (Auto) Milam % (Auto) Eos % (Auto) Baso % (Auto) Lymph # (Auto) Milam # (Auto) Eos # (Auto) Baso # (Auto) Abs Immat Gran (auto) Absolute Neuts (auto) Absolute Nucleated RBC Band Neutrophils % Nucleated RBC % Platelet Estimate Large Platelets % Immature Plt Fraction Anisocytosis Ovalocytes Schistocytes PT INR APTT Puncture Site ABG pH ABG pCO2 ABG pO2 ABG PO2/FiO2 Ratio ABG HCO3 ABG O2 Saturation ABG O2 Content ABG Base Excess A-a Gradient Oxyhemoglobin Carboxyhemoglobin Methemoglobin Reduced Hemoglobin Total Hemoglobin O2 Delivery Device O2 Liters/Min Minute Volume Vent Rate Vent Mode FiO2 Tidal Volume PEEP Peak Inspir Pressure Pressure Support Sodium Potassium Chloride Carbon Dioxide Anion Gap BUN Creatinine Estim Creat Clear Calc Estimated GFR Glucose Lactic Acid Calcium Magnesium Total Bilirubin AST ALT Alkaline Phosphatase Total Protein Albumin Blood Type Antibody Screen Crossmatch 10/31/24 10/31/24 10/31/24 05:03 05:03 05:03 WBC RBC Hgb Hct MCV MCH MCHC RDW 16.0 H Plt Count 71 L 68 L MPV 11.2 H 11.0 H Immature Gran % (Auto) 1.1 H Neut % (Auto) 84.6 H Lymph % (Auto) 7.4 L Milam % (Auto) 6.6 Eos % (Auto) 0.0 Baso % (Auto) 0.3 Lymph # (Auto) 0.93 Milam # (Auto) 0.8 H Eos # (Auto) 0.0 Baso # (Auto) 0.0 Abs Immat Gran (auto) 0.14 H Absolute Neuts (auto) 10.7 H Absolute Nucleated RBC 0.000 Band Neutrophils % Not Reportable Nucleated RBC % 0.0 Platelet Estimate Decreased Large Platelets Present % Immature Plt Fraction Anisocytosis 1+ Ovalocytes 1+ Schistocytes None seen PT 16.3 H INR 1.3 APTT 30.4 Puncture Site ABG pH ABG pCO2 ABG pO2 ABG PO2/FiO2 Ratio ABG HCO3 ABG O2 Saturation ABG O2 Content ABG Base Excess A-a Gradient Oxyhemoglobin Carboxyhemoglobin Methemoglobin Reduced Hemoglobin Total Hemoglobin O2 Delivery Device O2 Liters/Min Minute Volume Vent Rate Vent Mode FiO2 Tidal Volume PEEP Peak Inspir Pressure Pressure Support Sodium 138 Potassium 4.0 Chloride 108 H Carbon Dioxide 27 Anion Gap 3 L BUN 16 Creatinine 1.02 H Estim Creat Clear Calc 41 Estimated GFR 54 L Glucose 115 H Lactic Acid 0.9 Calcium 7.6 L Magnesium Total Bilirubin 0.6 AST 333 H ALT 252 H Alkaline Phosphatase 55 Total Protein 4.0 L Albumin 2.3 L Blood Type Antibody Screen Crossmatch 10/31/24 10/31/24 05:39 08:32 WBC RBC Hgb Hct MCV MCH MCHC RDW Plt Count MPV Immature Gran % (Auto) Neut % (Auto) Lymph % (Auto) Milam % (Auto) Eos % (Auto) Baso % (Auto) Lymph # (Auto) [place] # (Auto) Eos # (Auto) Baso # (Auto) Abs Immat Gran (auto) Absolute Neuts (auto) Absolute Nucleated RBC Band Neutrophils % Nucleated RBC % Platelet Estimate Large Platelets % Immature Plt Fraction Anisocytosis Ovalocytes Schistocytes PT INR APTT Puncture Site Artline ABG pH 7.414 ABG pCO2 33.8 L ABG pO2 103.8 H ABG PO2/FiO2 Ratio 3.46 ABG HCO3 21.1 L ABG O2 Saturation 97.9 ABG O2 Content 12.2 L ABG Base Excess -3.0 A-a Gradient 70.4 Oxyhemoglobin 97.0 Carboxyhemoglobin 0.6 Methemoglobin 0.0 Reduced Hemoglobin 2.4 Total Hemoglobin 8.8 L O2 Delivery Device Ventilator O2 Liters/Min Not Reportable Minute Volume Not Reportable Vent Rate 12 Vent Mode Cmv FiO2 30 Tidal Volume 400 PEEP 5 Peak Inspir Pressure Not Reportable Pressure Support Not Reportable Sodium Potassium Chloride Carbon Dioxide Anion Gap BUN Creatinine Estim Creat Clear Calc Estimated GFR Glucose Lactic Acid Calcium Magnesium 2.0 Total Bilirubin AST ALT Alkaline Phosphatase Total Protein Albumin Blood Type Antibody Screen Crossmatch
[2024-10-31 14:26] LABS: Alveolar/Arterial O2 Gradient 67.1 mmHg; Base Excess ABG -1.7 mEq/l (+/-2.0); Fractional Inspired Oxygen 30 %; HCO3 ABG 22.2 mEq/l (22.0-26.0); Oxygen Content ABG 12.1 %vol (16.0-22.0); Oxygen Saturation ABG 98.1 % (95.0-100.0); Oxyhemoglobin 97.1 % THb (90.0-100.0); PCO2 ABG 33.9 mmHg (35.0-45.0); PO2 FiO2 Ratio Arterial Blood 3.57 %; Total Hemoglobin 8.7 g/dL (12.0-18.0); pH ABG 7.434 (7.350-7.450)
[2024-10-31] MEDS: HYDROCORTISONE SODIUM SUCCINATE 100 MG/2 ML VIAL 50 MG IV PUSH (14:30)
[2024-10-31 14:32] LABS: Device VENTILATOR; Site Drawn ARTLINE
[2024-10-31 14:33] LABS: Arterial Blood Gas PEEP 5 cmH2O; Arterial Blood Gas Tidal Volume 400 ml; Arterial Blood Gas Vent Mode CMV; Arterial Blood Gas Ventilator rate 12 /MIN
[2024-10-31] MEDS: dexmedeTOMIDine 400 MCG/100 ML 400 MCG/100 ML BAG 9.01 MCG IV CONT (22:00)
[2024-11-01] VITALS (18 sets, daily range): BP systolic 130–165; BP diastolic 57–94; PULSE 41–77; RESP 11–18; TEMP 36.4–36.9; O2SAT 95–100; BMI 26.1
--- NOTE | 2024-11-01 | ECHO_ITS ---
Patient Info Name: Patsy Hugo Age: 64 years : 1960 Gender: Female Ht: 64 in Wt: 158 lbs BSA: 1.82 m2 HR: 56 bpm BP: 164 / 73 mmHg Technical Quality: Good Exam Date: 11/01/2024 9:26 AM Patient Status: I Admit Date: 10/24/2024 Exam Type: CA echo doppler color flow Complete two-dimensional, color flow and Doppler transthoracic echocardiogram is performed. Staff Referring Physician: Zhanna Loco MD Scrub Nurse: Tiara Barclay Attending Provider: Kate Richards Summary 1. Complete two-dimensional, color flow and Doppler transthoracic echocardiogram is performed. 2. There is normal biventricular size and systolic function. 3. There is moderate tricuspid regurgitation. 4. The aortic valve is not well visualized however there is no color Doppler or Doppler gradient evidence of significant aortic stenosis or regurgitation. Left Ventricle The left ventricle is normal in size and systolic function. There is concentric left ventricular remodeling. The left ventricular ejection fraction is visually estimated to be 60-65%. Right Ventricle The right ventricle is normal in size and systolic function. Left Atria The left atrium is normal size. Right Atria The right atrium is normal size. Atrial Septum The atrial septum is not well visualized. Aortic Valve The aortic valve is not well visualized. There is no color Doppler or Doppler gradients evidence of significant aortic stenosis or regurgitation. Pulmonic Valve The pulmonic valve is not well visualized. There is no color Doppler evidence of pulmonic valve regurgitation. Mitral Valve The mitral valve leaflets are thickened but opens well. There is mild mitral regurgitation. Tricuspid Valve The tricuspid valve opens well. There is moderate tricuspid regurgitation. Pericardium/Pleural Pericardium is normal in appearance with no evidence for significant pericardial effusion. Inferior Vena Cava The inferior vena cava is not visualized. Aorta The aortic root at the level of the sinus of Valsalva measures 2.8 cm in diameter. Left Ventricular Outflow Tract Name Value Normal LVOT 2D LVOT Diameter 1.9 cm LVOT Doppler LVOT Peak Velocity 85 cm/s LVOT Peak Gradient 3 mmHg LVOT Mean Gradient 1 mmHg LVOT VTI 21 cm LVOT VTI/AV VTI Ratio 0.7 LVOT Stroke Volume 57 ml LVOT CO 9.4 l/min LVOT CI 5.2 l/min/m2 Pulmonic Valve Name Value Normal PV Doppler PV Peak Velocity 91 cm/s PV Peak Gradient 3 mmHg Mitral Valve Name Value Normal MV Diastolic Function MV E Peak Velocity 101 cm/s MV A Peak Velocity 42 cm/s MV E/A 2.4 MV Decel Time (PW) 184 ms MV Annular TDI MV E/e' (Septal) 10.0 MV E/e' (Lateral) 8.3 MV E/e' (Average) 9.2 Tricuspid Valve Name Value Normal TV Regurgitation Doppler TR Peak Velocity 229 cm/s TR Peak Gradient 21 mmHg Estimated PAP/RSVP RA Pressure 10 mmHg <=5 PA Systolic Pressure 31 mmHg <36 RV Systolic Pressure 31 mmHg <36 TV Annular TDI TV Lateral Piedad s' Velocity 10.7 cm/s >=9.5 Aorta Name Value Normal Ascending Aorta Ao Root Diameter (MM) 3.0 cm Ao Root Diam Index (MM) 1.7 cm/m2 Aortic Valve Name Value Normal AV Doppler AV Peak Velocity 120 cm/s AV Peak Gradient 6 mmHg AV Mean Gradient 3 mmHg AV VTI 28 cm AV Area (Cont Eq VTI) 2.0 cm2 >=3.0 AV Area (Cont Eq Sushant) 2.0 cm2 AV DI (Sushant) 0.71 AV Regurgitation 2D LVOT Area 2.8 cm2 Ventricles Name Value Normal LV Dimensions 2D/MM IVS Diastolic Thickness (2D) 1.3 cm 0.6-1.0 LVID Diastole (2D) 3.9 cm 3.8-5.2 LVIW Diastolic Thickness (2D) 1.0 cm 0.6-0.9 LVID Systole (2D) 2.9 cm 2.2-3.5 LVOT Diameter 1.9 cm LV Mass (2D Cubed) 146.18 g 67.00-162.00 LV Mass Index (2D Cubed) 80 g/m2 43-95 Relative Wall Thickness (2D) 0.52 <=0.42 LV Fractional Shortening/Ejection Fraction 2D/MM LV Fractional Shortening (2D) 26 % 27-45 LV EF (2D Teichholz) 52 % LV Diastolic Volume (4C MOD) 106 ml LV EF (4C MOD) 66 % LV Diastolic Volume (2C MOD) 90 ml LV EF (2C MOD) 63 % LV Diastolic Volume (BP MOD) 100 ml 46-106 LV Diastolic Volume Index (BP MOD) 55 ml/m2 29-61 LV Systolic Volume (BP MOD) 35 ml 14-42 LV Systolic Volume Index (BP MOD) 19 ml/m2 8-24 LV EF (BP MOD) 65 % 54-74 LV Diastolic Length (4C) 7.9 cm LV Systolic Length (4C) 6.1 cm LV Stroke Volume (4C MOD) 70 ml RV Dimensions 2D/MM RVID Diastole (2D) 4.4 cm 2.1-3.5 Atria Name Value Normal LA Dimensions LA Dimension (MM) 3.1 cm 2.7-3.8 LA Volume (4C A-L) 50 ml LA Volume (BP A-L) 42 ml RA Dimensions RA Systolic Major Wiley Length (4C) 4.8 cm 2.2-2.8 RA Area (4C) 14.4 cm2 <=18.0 Report Signatures
[2024-11-01] MEDS: PIPERACILLN/TAZ 3.375GM/NS50ML 3.375 GM/50 ML BAG IVPB ×4 (02:53→21:15)
[2024-11-01] MEDS: HYDROCORTISONE SODIUM SUCCINATE 100 MG/2 ML VIAL 50 MG IV PUSH ×2 (02:53→15:04)
[2024-11-01] MEDS: LACTATED RINGERS 1,000 ML 75 ML IV CONT (04:00)
[2024-11-01 05:29] LABS: Hematocrit 25.9 % (37.0-47.0); Hemoglobin 8.3 g/dL (12.0-15.0); Immature Platelet Fraction Pct 8.8 % (0.9-11.2); Mean Corpuscular Hemoglobin 29.4 pg (26-34); Mean Corpuscular Volume 91.8 fl (80-100); Mean Platelet Volume 11.3 fl (7.4-10.4); Platelet Count Result 95 k/mm3 (150-375); Red Blood Count 2.82 M/mm3 (4.2-5.4); Red Cell Distribution Width 16.2 % (11.5-14.5); White Blood Count 10.6 K/mm3 (4.5-10.0)
[2024-11-01 05:29] LABS: Alveolar/Arterial O2 Gradient 7.5 mmHg; Base Excess ABG -3.2 mEq/l (+/-2.0); HCO3 ABG 20.2 mEq/l (22.0-26.0); Oxygen Content ABG 12.5 %vol (16.0-22.0); Oxygen Saturation ABG 98.8 % (95.0-100.0); Oxyhemoglobin 97.9 % THb (90.0-100.0); PCO2 ABG 29.9 mmHg (35.0-45.0); PO2 ABG 135.2 mmHg (80.0-100.0); PO2 FiO2 Ratio Arterial Blood 5.41 %; Total Hemoglobin 8.9 g/dL (12.0-18.0); pH ABG 7.447 (7.350-7.450)
[2024-11-01 05:38] LABS: Alanine Aminotransferase 181 U/L (6-35); Albumin Level 2.6 g/dL (3.5-5.1); Alkaline Phosphatase 55 U/L (38-126); Anion Gap 6 mmol/L (4-12); Aspartate Amino Transferase 169 U/L (14-36); Bilirubin,Total 0.9 mg/dL (0.2-1.3); Blood Urea Nitrogen 18 mg/dL (7-17); Calcium 8.2 mg/dL (8.4-10.2); Carbon Dioxide 22 mmol/L (22-30); Chloride 107 mmol/L (98-107); Estimated CRCL calculation 49 ml/min; Estimated Glomerular Filt Rate 57; Glucose 109 mg/dL (65-110); Phosphorus 3.9 mg/dL (2.5-4.5); Potassium 3.8 mmol/L (3.4-5.0); Sodium 135 mmol/L (137-145)
[2024-11-01 05:41] LABS: Arterial Blood Gas Vent Mode CMV; Arterial Blood Gas Ventilator rate 12 /MIN; Device VENTILATOR; Site Drawn ARTLINE
[2024-11-01 05:42] LABS: Arterial Blood Gas PEEP 5 cmH2O; Arterial Blood Gas Tidal Volume 400 ml; Fractional Inspired Oxygen 30 %
[2024-11-01] MEDS: CENTRAL LINE FLUSH 10 ML IV PUSH ×3 (07:55→21:16)
[2024-11-01] MEDS: FUROSEMIDE INJ 40 MG/4 ML VIAL IV PUSH (07:55)
--- NOTE | 2024-11-01 07:55 | P.PNINT_ITS ---
Progress Note: A&P Assessment and Plan (1) Cholelithiasis with choledocholithiasis: Code(s): K80.70 - Calculus of gallbladder and bile duct without cholecystitis without obstruction Status: Acute Assessment and Plan: Patient patient with choledocholithiasis and cholecystitis -10/29: Status post: Attempted laparoscopic cholecystectomy, open cholecystectomy with intraoperative cholangiogram, control hepatic vein hemorrhage -EBL 1000 ml -surgery following the patient (2) Septic shock: Code(s): A41.9 - Sepsis, unspecified organism; R65.21 - Severe sepsis with septic shock Status: Acute Assessment and Plan: Septic shock : Etiology postoperatively, he decrease resuscitation -patient received a total of 5 L of IV fluids in fluid resuscitation -status post IV fluids and albumin for intravascular was expansion - central line was inserted the OR along with arterial line -off Levophed, and all on pressors, maintain SBP > 100 mmHg or MAP > 65 mmHg at all times for adequate end organ perfusion -will wean stress dose steroids -continue Zosyn (10/29) -lactic acid has normalized -DC art line (3) Acute respiratory failure: Code(s): J96.00 - Acute respiratory failure, unspecified whether with hypoxia or hypercapnia Status: Acute Assessment and Plan: Postoperative acute respiratory failure, patient was intubated during the procedure and remained intubated and transferred to the ICU for further manage -currently on CMV mode of ventilation, peep of 5, 30% FiO2 -ABGs and chest x-ray reviewed, ventilator adjusted -sedated with fentanyl and Versed infusion, maintain RASS of 0 to -2, daily SBT and SAT -given patient received significant amount IV fluids for volume resuscitation and multiple be units of blood products, discussed with surgery, will keep patient intubated today due to fluid shifts and third-spacing -placed patient on SBT, Precedex infusion has been discontinued, evaluate for extubation once more awake and passes a breathing trial -Lasix IV x1 this morning prior to extubation (4) Postoperative anemia due to acute blood loss: Code(s): D62 - Acute posthemorrhagic anemia Status: Acute Assessment and Plan: Intraoperative hemorrhage with approximately 1000 mL in blood loss -status post 4 units of packed RBCs, 2 units of FFP and 1 unit of cryoprecipitate -continue to monitor CBC -10/30: transfused 1 unit of packed RBCs -hemoglobin stable 11/01: Hemoglobin stable (5) Elevated LFTs: Code(s): R79.89 - Other specified abnormal findings of blood chemistry Status: Acute Assessment and Plan: Elevated LFTs likely related to hypotension and shock liver -LFTs trending down, will continue to monitor (6) Thrombocytopenia: Code(s): D69.6 - Thrombocytopenia, unspecified Status: Acute Assessment and Plan: Postoperative thrombocytopenia likely related to consumption -could also be related to septic shock and decreased marrow production -10/31: will transfuse 1 unit platelets Plan DVT prophylaxis: SCDs, will discuss with surgery regarding chemoprophylaxis since patient had intraoperative hemorrhage requiring multiple units of packed RBCs Stress ulcer prophylaxis: Protonix IV q.12 hours Nutrition: If patient does not get extubated, can start trickle tube feeds Code Status: Do not resuscitate Critical Care Time Spent: 33 minutes Due to a high probability of clinically significant, life threatening deterioration, the patient required my highest level of preparedness to intervene emergently and I personally spent this critical care time directly and personally managing the patient. This critical care time included obtaining a history; examining the patient; pulse oximetry; ordering and review of studies; arranging urgent treatment with development of a management plan; evaluation of patient's response to treatment; frequent reassessment; and discussions with other providers. It was exclusive of separately billable procedures and treating other patients and teaching time. Please see Assessment and Plan section and the rest of the note for further information on patient assessment and treatment This dictation may have been done utilizing a voice recognition system. Attempts have been made to correct errors. However, there may be uncorrected grammatical, spelling, and recognitions errors present. Subjective Date/time seen: 11/01/24 07:55 Interval history: Reason for consult: Septic shock, acute respiratory failure, anemia secondary to bleeding during procedure, status post multiple units of blood products, lactic acidosis 11/01/2024: Patient seen and examined the ICU, remains intubated on CMV mode of ventilation, peep of 5, 30% FiO2. Sedated with Precedex infusion at 0.2 mcg/kg/hr. Patient does open her eyes, nods to questions and follows simple commands. Afebrile overnight, good urine output, hemodynamically stable, blood pressures are slightly elevated Review of Systems Review of Systems: ROS unobtainable: Yes unobtainable due to endotracheal tube, unobtainable due to medical condition and unobtainable due to mental status Exam Narrative: General: Patient intubated on Precedex infusion, in no acute distress HEENT:? Pupils equal reactive, sclerae is clear, ETT in place Neck:? Supple Respiratory:? Coarse breath sounds bilaterally, decreased at bases, no rales or wheezing noted, adequate air entry Cardiac:? S1-S2 is normal regular rate and rhythm Abdomen:? Soft, tender to palpation, hypoactive bowel sounds, nondistended. HUMAIRA drain in place Extremities:? Bilateral lower extremities are contracted, bilateral lower extremity and pedal edema, palpable pedal pulses Neuro:? Patient is intubated, on Precedex infusion, opens the eyes, follows simple commands and nods to questions Skin:? No skin lesions noted, right upper quadrant incision which is covered under dressing, clean dry and intact Psych:? Unable to assess at this time Objective Data Vital Signs Vital Signs: Vital Signs - 24 hr 10/31/24 08:00 10/31/24 08:00 10/31/24 08:00 Temperature Pulse Rate 40 L 40 L 51 L Respiratory Rate 13 13 14 Blood Pressure Pulse Oximetry 99 Oxygen Delivery Mechanical Ventilation Fraction of Inspired Oxygen 30 10/31/24 08:00 10/31/24 08:00 10/31/24 08:14 Temperature 97.7 F Pulse Rate 46 L 48 L Respiratory Rate 13 Blood Pressure 119/58 L Pulse Oximetry 100 Oxygen Delivery Fraction of Inspired Oxygen 30 10/31/24 08:23 10/31/24 08:24 10/31/24 08:33 Temperature 97.7 F Pulse Rate 45 L 45 L 54 L Respiratory Rate 12 12 12 Blood Pressure 129/64 Pulse Oximetry 100 Oxygen Delivery Fraction of Inspired Oxygen 10/31/24 09:33 10/31/24 10:00 10/31/24 10:00 Temperature 97.8 F Pulse Rate 51 L 50 L 50 L Respiratory Rate 12 12 12 Blood Pressure 118/57 L Pulse Oximetry 100 Oxygen Delivery Fraction of Inspired Oxygen 10/31/24 10:00 10/31/24 10:00 10/31/24 10:20 Temperature 97.8 F Pulse Rate 58 L 54 L 51 L Respiratory Rate 12 12 Blood Pressure 136/67 117/55 L Pulse Oximetry 98 100 Oxygen Delivery Fraction of Inspired Oxygen 10/31/24 10:30 10/31/24 11:00 10/31/24 11:35 Temperature Pulse Rate 58 L 57 L 59 L Respiratory Rate 10 L 12 Blood Pressure Pulse Oximetry 100 Oxygen Delivery Mechanical Ventilation Fraction of Inspired Oxygen 30 10/31/24 11:36 10/31/24 12:00 10/31/24 12:00 Temperature Pulse Rate 55 L 56 L 54 L Respiratory Rate 12 14 Blood Pressure Pulse Oximetry 99 Oxygen Delivery Mechanical Ventilation Fraction of Inspired Oxygen 30 10/31/24 12:00 10/31/24 12:00 10/31/24 12:00 Temperature 98.4 F Pulse Rate 51 L 50 L Respiratory Rate 12 12 Blood Pressure 130/59 L Pulse Oximetry 98 Oxygen Delivery Fraction of Inspired Oxygen 30 10/31/24 12:00 10/31/24 12:49 10/31/24 12:49 Temperature Pulse Rate 50 L 56 L 62 Respiratory Rate 12 10 L 10 L Blood Pressure Pulse Oximetry Oxygen Delivery Fraction of Inspired Oxygen 10/31/24 12:50 10/31/24 14:00 10/31/24 14:00 Temperature Pulse Rate 66 50 L 57 L Respiratory Rate 11 L 12 Blood Pressure 129/62 Pulse Oximetry 100 Oxygen Delivery Fraction of Inspired Oxygen 10/31/24 14:03 10/31/24 14:04 10/31/24 14:04 Temperature Pulse Rate 65 72 66 Respiratory Rate 12 14 11 L Blood Pressure Pulse Oximetry Oxygen Delivery Fraction of Inspired Oxygen 10/31/24 14:42 10/31/24 16:00 10/31/24 16:00 Temperature Pulse Rate 53 L 53 L Respiratory Rate 14 Blood Pressure Pulse Oximetry 100 99 Oxygen Delivery Mechanical Ventilation Mechanical Ventilation Fraction of Inspired Oxygen 30 30 30 10/31/24 16:00 10/31/24 16:00 10/31/24 16:00 Temperature 97.8 F Pulse Rate 50 L 47 L 59 L Respiratory Rate 13 13 Blood Pressure 153/75 H Pulse Oximetry 100 Oxygen Delivery Fraction of Inspired Oxygen 10/31/24 17:00 10/31/24 17:39 10/31/24 17:45 Temperature Pulse Rate 48 L 65 56 L Respiratory Rate 14 12 Blood Pressure Pulse Oximetry 100 Oxygen Delivery Mechanical Ventilation Fraction of Inspired Oxygen 30 10/31/24 18:00 10/31/24 18:00 10/31/24 19:36 Temperature Pulse Rate 52 L 52 L 52 L Respiratory Rate 15 15 Blood Pressure 135/69 Pulse Oximetry 100 100 Oxygen Delivery Mechanical Ventilation Fraction of Inspired Oxygen 30 10/31/24 19:39 10/31/24 19:42 10/31/24 19:42 Temperature 97.7 F Pulse Rate 52 L 52 L Respiratory Rate 14 Blood Pressure 135/69 Pulse Oximetry 100 Oxygen Delivery Fraction of Inspired Oxygen 30 10/31/24 20:00 10/31/24 20:17 10/31/24 22:00 Temperature Pulse Rate 57 L 57 L 59 L Respiratory Rate 14 Blood Pressure Pulse Oximetry 99 Oxygen Delivery Mechanical Ventilation Fraction of Inspired Oxygen 30 10/31/24 22:00 10/31/24 22:00 10/31/24 22:00 Temperature 98.1 F Pulse Rate 59 L 52 L 52 L Respiratory Rate 14 14 14 Blood Pressure 151/68 H Pulse Oximetry 100 Oxygen Delivery Fraction of Inspired Oxygen 11/01/24 00:00 11/01/24 00:00 11/01/24 00:00 Temperature Pulse Rate 52 L 52 L Respiratory Rate 14 Blood Pressure Pulse Oximetry 100 Oxygen Delivery Mechanical Ventilation Fraction of Inspired Oxygen 30 30 11/01/24 00:00 11/01/24 00:00 11/01/24 00:44 Temperature 98.1 F Pulse Rate 51 L 50 L 57 L Respiratory Rate 14 14 Blood Pressure 159/72 H Pulse Oximetry 100 99 Oxygen Delivery Mechanical Ventilation Fraction of Inspired Oxygen 30 11/01/24 02:00 11/01/24 02:00 11/01/24 02:00 Temperature 97.9 F Pulse Rate 57 L 49 L 44 L Respiratory Rate 14 14 Blood Pressure 153/68 H Pulse Oximetry 100 Oxygen Delivery Fraction of Inspired Oxygen 11/01/24 04:00 11/01/24 04:00 11/01/24 04:00 Temperature Pulse Rate 49 L 50 L Respiratory Rate 14 Blood Pressure Pulse Oximetry 100 Oxygen Delivery Mechanical Ventilation Fraction of Inspired Oxygen 30 30 11/01/24 04:00 11/01/24 04:00 11/01/24 05:37 Temperature 98.1 F Pulse Rate 49 L 41 L 44 L Respiratory Rate 14 14 Blood Pressure 148/65 H Pulse Oximetry 100 100 Oxygen Delivery Mechanical Ventilation Fraction of Inspired Oxygen 30 11/01/24 06:00 11/01/24 06:00 11/01/24 06:00 Temperature 98.0 F Pulse Rate 48 L 49 L 47 L Respiratory Rate 13 14 Blood Pressure 164/73 H Pulse Oximetry 100 Oxygen Delivery Fraction of Inspired Oxygen 11/01/24 07:35 Temperature Pulse Rate 46 L Respiratory Rate 15 Blood Pressure Pulse Oximetry Oxygen Delivery Fraction of Inspired Oxygen Intake/Output Intake/Output: Intake & Output 10/29/24 10/30/24 10/31/24 11/01/24 23:59 23:59 23:59 23:59 Intake Total 3189.6 6289.3 2251.1 1116.9 Output Total 2450 975 1740 525 Balance 739.6 5314.3 511.1 591.9 Meds/Results Medications: Active Medications Generic Name Dose Route Start Last Admin Trade Name Freq PRN Reason Stop Dose Admin Acetaminophen 1,000 mg 10/25/24 08:02 Acetaminophen 500 Mg Tablet PO Q6H PRN Pain 1-3 or fever Docusate Sodium 100 mg 10/25/24 09:00 10/29/24 18:29 Docusate Sodium 100 Mg Capsule PO Not Given BID SONIA Fentanyl Citrate 12.5 mcg 10/29/24 19:12 Fentanyl Citrate Inj (*Crx) 100 Mcg/2 Ml Vial IV PUSH Q2H PRN Breakthrough Pain Rated 4-6 or NPO Fentanyl Citrate 25 mcg 10/29/24 19:12 Fentanyl Citrate Inj (*Crx) 100 Mcg/2 Ml Vial IV PUSH Q2H PRN Breakthrough Pain Rated 7-10 or NPO Hydrocortisone Sodium Succinate 50 mg 10/31/24 15:00 11/01/24 02:53 Hydrocortisone Sodium Succinate 100 Mg/2 Ml Vial IV PUSH 11/02/24 14:59 50 mg Q12H SONIA Administration Hydroxyzine Pamoate 25 mg 10/25/24 17:00 10/29/24 18:29 Hydroxyzine Pamoate 25 Mg Capsule PO Not Given BID SONIA Levetiracetam 750 mg/ Dextrose 107.5 mls @ 430 mls/hr 10/28/24 21:00 10/31/24 21:30 IVPB Infused Q12H SONIA Infusion Fentanyl Citrate 2,500 mcg in 250 mls @ 0 mls/hr 10/29/24 19:10 10/31/24 17:39 Fentanyl 2,500 Mcg/Ns 250 Ml IV CONT Infused .Q0M SONIA Titration Protocol Midazolam HCl 100 mg in 100 mls @ 0 mls/hr 10/29/24 19:10 10/31/24 17:45 Versed 100 Mg/Ns 100 Ml IV CONT 0 mg/hr .Q0M SONIA 0 mls/hr Titration Protocol Lactated Ringer's 1,000 mls @ 75 mls/hr 10/29/24 19:12 11/01/24 04:00 Lr - Lactated Ringers Iv IV CONT 75 mls/hr .[id number] SONIA Administration Piperacillin/Tazobactam/Dextrose 3.375 gm in 50 mls @ 100 mls/hr 10/29/24 21:00 11/01/24 03:25 Zosyn 3.375 Gm/Ns 50 Ml IVPB Infused Q6H SONIA Infusion Dexmedetomidine HCl 400 mcg in 100 mls @ 3.605 mls/hr 10/31/24 10:05 11/01/24 07:35 Precedex 400 Mcg/100 Ml IV CONT 0 mcg/kg/hr .[id number] SONIA 0 mls/hr Titration Protocol 0.2 MCG/KG/HR Irbesartan 75 mg 10/25/24 09:00 10/29/24 08:47 Irbesartan 75 Mg Tablet PO Not Given DAILY SONIA Lactobacillus Acidophilus 1 tablet 10/25/24 09:00 10/29/24 08:47 Acidophilus/Bulgaricus Chewable Tablet PO Not Given DAILY SONIA Magnesium Oxide 400 mg 10/25/24 09:00 10/29/24 08:47 Magnesium Oxide 400 Mg Tablet PO Not Given DAILY SONIA Mirtazapine 15 mg 10/25/24 21:00 10/29/24 23:40 Mirtazapine 15 Mg Tablet PO 15 mg HS SONIA Administration Montelukast Sodium 10 mg 10/25/24 21:00 10/29/24 23:40 Montelukast Sodium 10 Mg Tablet PO 10 mg HS SONIA Administration Multi-Ingred Cream/Lotion/Oil/Oint 1 applic 10/29/24 21:00 10/31/24 21:19 Mineral Oil/White Petrolatum Ointment EACH EYE 1 applic Q12HR SONIA Administration Multivitamins/Calcium 1 tablet 10/25/24 09:00 10/29/24 08:47 Therapeutic Multivitamins/Minerals Tab (*Bkc) PO Not Given DAILY SONIA Ondansetron HCl 4 mg 10/29/24 14:00 Ondansetron Inj 4 Mg/2 Ml Vial IV PUSH ONCE PRN Nausea Oxycodone HCl 5 mg 10/25/24 08:02 Oxycodone Hcl (*Crx) 5 Mg Tab Ir PO Q4H PRN Pain Rated 7-10 Pantoprazole Sodium 20 mg 10/25/24 09:00 10/29/24 23:40 Pantoprazole Sod Sesquihydrate 20 Mg Tab PO 20 mg Q12HR SONIA Administration Pantoprazole Sodium 40 mg 10/30/24 09:00 10/31/24 21:18 Pantoprazole Sodium Iv 40 Mg Vial IV PUSH 40 mg Q12HR SONIA Administration Perflutren Lipid Microsphere 0 ml 10/31/24 07:33 Perflutren Lipid Microspheres 1.5 Ml Vial Diluted To 10 Ml Total Volume IV PUSH 11/03/24 07:33 ONCE PRN adequate visualization Protocol Potassium Chloride 10 meq 10/25/24 09:00 10/29/24 18:29 Potassium Chloride 10 Meq Er Tablet PO Not Given BID SONIA Simvastatin 20 mg 10/25/24 21:00 10/29/24 23:41 Simvastatin 20 Mg Tablet PO 20 mg HS SONIA Administration Sodium Chloride 10 ml 10/29/24 22:00 11/01/24 07:55 Central Line Flush IV PUSH 10 ml Q8HR SONIA Administration Sodium Chloride 20 ml 10/29/24 19:51 Central Line Flush IV PUSH PRN PRN after blood draws Sucralfate 1 gm 10/25/24 16:30 10/30/24 05:15 Sucralfate 1 Gm Tablet PO Not Given BIDAC SONIA Vitamin D 4,000 units 10/25/24 09:00 10/29/24 08:47 Cholecalciferol 1,000 Units Tablet PO Not Given DAILY [facility] Radiology Results: ITS Impressions Abdomen/Pelvis CT 10/24/24 19:41 IMPRESSION: 1. No evidence of appendicitis, diverticulitis or intestinal obstruction. 2. Highly suggestive of abscess in the right pararectal area. 3. Markedly thickened rectal wall with distended colon by gases. Further evaluation of the rectum is advised. 4. Hypodensities in both kidneys which may indicate pyelonephritis. Dilated ureters are also noted. 5. Thickened wall of the urinary bladder which may indicate cystitis versus infiltrative process. Further evaluation advised. 6. Intrahepatic and extrahepatic biliary dilatation. 7. Cholelithiasis. 8. Hepatomegaly. Enema w/Water Soluble 10/25/24 14:02 IMPRESSION: 1. Moderate amount of scattered colonic stool suggestive of constipation with no evident strictures/obstruction. MRCP 10/27/24 14:28 IMPRESSION: 1. Mild intra and extra hepatic biliary ductal dilation with both cholelithiasis and choledocholithiasis which does not appear currently obstructing. 2. Very small bilateral posterior layering pleural effusions. 3. Mild bilateral hydronephrosis. Cholangiogram,Operative 10/29/24 17:33 IMPRESSION: 1. Contrast injection delineates slowly mobile nonobstructing material within the dilated common hepatic and bile ducts the appearance of which favors sludge over very small gallstones. Labs Labs: Laboratory Results - last 24 hr 10/30/24 10/31/24 10/31/24 20:31 08:32 14:20 WBC RBC Hgb Hct MCV MCH MCHC RDW Plt Count MPV % Immature Plt Fraction Puncture Site Artline ABG pH 7.434 ABG pCO2 33.9 L ABG pO2 107.0 H ABG PO2/FiO2 Ratio 3.57 ABG HCO3 22.2 ABG O2 Saturation 98.1 ABG O2 Content 12.1 L ABG Base Excess -1.7 A-a Gradient 67.1 Oxyhemoglobin 97.1 Total Hemoglobin 8.7 L O2 Delivery Device Ventilator O2 Liters/Min Not Reportable Minute Volume Not Reportable Vent Rate 12 Vent Mode Cmv FiO2 30 Tidal Volume 400 PEEP 5 Peak Inspir Pressure Not Reportable Pressure Support Not Reportable Sodium Potassium Chloride Carbon Dioxide Anion Gap BUN Creatinine Estim Creat Clear Calc Estimated GFR Glucose Calcium Phosphorus Magnesium 2.0 Total Bilirubin AST ALT Alkaline Phosphatase Total Protein Albumin Blood Type O Positive Antibody Screen Negative 11/01/24 11/01/24 05:15 05:29 WBC 10.6 H RBC 2.82 L Hgb 8.3 L Hct 25.9 L MCV 91.8 MCH 29.4 MCHC 32.0 RDW 16.2 H Plt Count 95 L MPV 11.3 H % Immature Plt Fraction 8.8 Puncture Site Artline ABG pH 7.447 ABG pCO2 29.9 L ABG pO2 135.2 H ABG PO2/FiO2 Ratio 5.41 ABG HCO3 20.2 L ABG O2 Saturation 98.8 ABG O2 Content 12.5 L ABG Base Excess -3.2 A-a Gradient 7.5 Oxyhemoglobin 97.9 Total Hemoglobin 8.9 L O2 Delivery Device Ventilator O2 Liters/Min Not Reportable Minute Volume Not Reportable Vent Rate 12 Vent Mode Cmv FiO2 30 Tidal Volume 400 PEEP 5 Peak Inspir Pressure Not Reportable Pressure Support Not Reportable Sodium 135 L Potassium 3.8 Chloride 107 Carbon Dioxide 22 Anion Gap 6 BUN 18 H Creatinine 0.97 Estim Creat Clear Calc 49 Estimated GFR 57 L Glucose 109 Calcium 8.2 L Phosphorus 3.9 Magnesium 2.0 Total Bilirubin 0.9 AST 169 H ALT 181 H Alkaline Phosphatase 55 Total Protein 5.0 L Albumin 2.6 L Blood Type Antibody Screen Quality VTE Prophylaxis VTE prophylaxis: mechanical ordered
--- NOTE | 2024-11-01 08:11 | PM.PNGS ---
Progress Note: A&P Assessment and Plan (1) Chronic cholecystitis due to cholelithiasis with choledocholithiasis: Code(s): K80.64 - Calculus of gallbladder and bile duct with chronic cholecystitis without obstruction Status: Acute Assessment and Plan: Start liquids once patient is extubated. No evidence of bile leak. Wound is healing well. Start daily dressing changes. (2) Acute respiratory failure: Code(s): J96.00 - Acute respiratory failure, unspecified whether with hypoxia or hypercapnia Status: Acute Assessment and Plan: Spoke with Dr. Loco. He plans to extubate today after breathing trial. (3) Postoperative anemia due to acute blood loss: Code(s): D62 - Acute posthemorrhagic anemia Status: Acute Assessment and Plan: Stable anemia (4) Chronic indwelling White catheter: Code(s): Z97.8 - Presence of other specified devices Status: Chronic (5) Postoperative hemorrhagic shock: Code(s): T81.19XA - Other postprocedural shock, initial encounter Status: Acute Assessment and Plan: Much better. H&H is stable, urine output is good. Off all vasopressors. Subjective Subjective Date/Time Seen: 11/01/24 08:11 Post Op day: 3 Patient reports: other (Sedated on ventilator) Exam Const: General: patient obtunded (Sedated) and thin Orientation/consciousness: patient obtunded GI: Inspection: non-distended, incision (Healing well), scaphoid and other (Serosanguineous HUMAIRA output) GI Palp: Yes Soft to palpation and Yes Tenderness to palpation present (GI) Objective Data Vital Signs Vital Signs: Vital Signs - 24 hr 10/31/24 08:14 10/31/24 08:23 10/31/24 08:24 Temperature 36.5 C Pulse Rate 48 L 45 L 45 L Respiratory Rate 13 12 12 Blood Pressure 119/58 L Pulse Oximetry 100 Oxygen Delivery Fraction of Inspired Oxygen 10/31/24 08:33 10/31/24 09:33 10/31/24 10:00 Temperature 36.5 C 36.6 C Pulse Rate 54 L 51 L 50 L Respiratory Rate 12 12 12 Blood Pressure 129/64 118/57 L Pulse Oximetry 100 100 Oxygen Delivery Fraction of Inspired Oxygen 10/31/24 10:00 10/31/24 10:00 10/31/24 10:00 Temperature Pulse Rate 50 L 58 L 54 L Respiratory Rate 12 12 Blood Pressure 136/67 Pulse Oximetry 98 Oxygen Delivery Fraction of Inspired Oxygen 10/31/24 10:20 10/31/24 10:30 10/31/24 11:00 Temperature 36.6 C Pulse Rate 51 L 58 L 57 L Respiratory Rate 12 10 L Blood Pressure 117/55 L Pulse Oximetry 100 100 Oxygen Delivery Mechanical Ventilation Fraction of Inspired Oxygen 30 10/31/24 11:35 10/31/24 11:36 10/31/24 12:00 Temperature Pulse Rate 59 L 55 L 56 L Respiratory Rate 12 12 14 Blood Pressure Pulse Oximetry 99 Oxygen Delivery Mechanical Ventilation Fraction of Inspired Oxygen 30 10/31/24 12:00 10/31/24 12:00 10/31/24 12:00 Temperature 36.9 C Pulse Rate 54 L 51 L Respiratory Rate 12 Blood Pressure 130/59 L Pulse Oximetry 98 Oxygen Delivery Fraction of Inspired Oxygen 30 10/31/24 12:00 10/31/24 12:00 10/31/24 12:49 Temperature Pulse Rate 50 L 50 L 56 L Respiratory Rate 12 12 10 L Blood Pressure Pulse Oximetry Oxygen Delivery Fraction of Inspired Oxygen 10/31/24 12:49 10/31/24 12:50 10/31/24 14:00 Temperature Pulse Rate 62 66 50 L Respiratory Rate 10 L 11 L Blood Pressure Pulse Oximetry Oxygen Delivery Fraction of Inspired Oxygen 10/31/24 14:00 10/31/24 14:03 10/31/24 14:04 Temperature Pulse Rate 57 L 65 72 Respiratory Rate 12 12 14 Blood Pressure 129/62 Pulse Oximetry 100 Oxygen Delivery Fraction of Inspired Oxygen 10/31/24 14:04 10/31/24 14:42 10/31/24 16:00 Temperature Pulse Rate 66 53 L 53 L Respiratory Rate 11 L 14 Blood Pressure Pulse Oximetry 100 99 Oxygen Delivery Mechanical Ventilation Mechanical Ventilation Fraction of Inspired Oxygen 30 30 10/31/24 16:00 10/31/24 16:00 10/31/24 16:00 Temperature 36.6 C Pulse Rate 50 L 47 L Respiratory Rate 13 Blood Pressure 153/75 H Pulse Oximetry 100 Oxygen Delivery Fraction of Inspired Oxygen 30 10/31/24 16:00 10/31/24 17:00 10/31/24 17:39 Temperature Pulse Rate 59 L 48 L 65 Respiratory Rate 13 14 Blood Pressure Pulse Oximetry 100 Oxygen Delivery Mechanical Ventilation Fraction of Inspired Oxygen 30 10/31/24 17:45 10/31/24 18:00 10/31/24 18:00 Temperature Pulse Rate 56 L 52 L 52 L Respiratory Rate 12 15 Blood Pressure 135/69 Pulse Oximetry 100 Oxygen Delivery Fraction of Inspired Oxygen 10/31/24 19:36 10/31/24 19:39 10/31/24 19:42 Temperature Pulse Rate 52 L 52 L Respiratory Rate 15 Blood Pressure Pulse Oximetry 100 Oxygen Delivery Mechanical Ventilation Fraction of Inspired Oxygen 30 30 10/31/24 19:42 10/31/24 20:00 10/31/24 20:17 Temperature 36.5 C Pulse Rate 52 L 57 L 57 L Respiratory Rate 14 14 Blood Pressure 135/69 Pulse Oximetry 100 99 Oxygen Delivery Mechanical Ventilation Fraction of Inspired Oxygen 30 10/31/24 22:00 10/31/24 22:00 10/31/24 22:00 Temperature 36.7 C Pulse Rate 59 L 59 L 52 L Respiratory Rate 14 14 Blood Pressure 151/68 H Pulse Oximetry 100 Oxygen Delivery Fraction of Inspired Oxygen 10/31/24 22:00 11/01/24 00:00 11/01/24 00:00 Temperature Pulse Rate 52 L 52 L 52 L Respiratory Rate 14 14 Blood Pressure Pulse Oximetry 100 Oxygen Delivery Mechanical Ventilation Fraction of Inspired Oxygen 30 11/01/24 00:00 11/01/24 00:00 11/01/24 00:00 Temperature 36.7 C Pulse Rate 51 L 50 L Respiratory Rate 14 14 Blood Pressure 159/72 H Pulse Oximetry 100 Oxygen Delivery Fraction of Inspired Oxygen 30 11/01/24 00:44 11/01/24 02:00 11/01/24 02:00 Temperature 36.6 C Pulse Rate 57 L 57 L 49 L Respiratory Rate 14 Blood Pressure 153/68 H Pulse Oximetry 99 100 Oxygen Delivery Mechanical Ventilation Fraction of Inspired Oxygen 30 11/01/24 02:00 11/01/24 04:00 11/01/24 04:00 Temperature Pulse Rate 44 L 49 L 50 L Respiratory Rate 14 14 Blood Pressure Pulse Oximetry 100 Oxygen Delivery Mechanical Ventilation Fraction of Inspired Oxygen 30 11/01/24 04:00 11/01/24 04:00 11/01/24 04:00 Temperature 36.7 C Pulse Rate 49 L 41 L Respiratory Rate 14 14 Blood Pressure 148/65 H Pulse Oximetry 100 Oxygen Delivery Fraction of Inspired Oxygen 30 11/01/24 05:37 11/01/24 06:00 11/01/24 06:00 Temperature 36.7 C Pulse Rate 44 L 48 L 49 L Respiratory Rate 13 Blood Pressure 164/73 H Pulse Oximetry 100 100 Oxygen Delivery Mechanical Ventilation Fraction of Inspired Oxygen 30 11/01/24 06:00 11/01/24 07:35 Temperature Pulse Rate 47 L 46 L Respiratory Rate 14 15 Blood Pressure Pulse Oximetry Oxygen Delivery Fraction of Inspired Oxygen Intake/Output Intake/Output: Intake & Output 10/29/24 10/30/24 10/31/24 11/01/24 23:59 23:59 23:59 23:59 Intake Total 3189.6 6289.3 2251.1 1116.9 Output Total 2450 975 1740 525 Balance 739.6 5314.3 511.1 591.9 Meds/Results Medications: Active Medications Generic Name Dose Route Start Last Admin Trade Name Freq PRN Reason Stop Dose Admin Acetaminophen 1,000 mg 10/25/24 08:02 Acetaminophen 500 Mg Tablet PO Q6H PRN Pain 1-3 or fever Docusate Sodium 100 mg 10/25/24 09:00 10/29/24 18:29 Docusate Sodium 100 Mg Capsule PO Not Given BID SONIA Fentanyl Citrate 12.5 mcg 10/29/24 19:12 Fentanyl Citrate Inj (*Crx) 100 Mcg/2 Ml Vial IV PUSH Q2H PRN Breakthrough Pain Rated 4-6 or NPO Fentanyl Citrate 25 mcg 10/29/24 19:12 Fentanyl Citrate Inj (*Crx) 100 Mcg/2 Ml Vial IV PUSH Q2H PRN Breakthrough Pain Rated 7-10 or NPO Hydrocortisone Sodium Succinate 50 mg 10/31/24 15:00 11/01/24 02:53 Hydrocortisone Sodium Succinate 100 Mg/2 Ml Vial IV PUSH 11/02/24 14:59 50 mg Q12H SONIA Administration Hydroxyzine Pamoate 25 mg 10/25/24 17:00 10/29/24 18:29 Hydroxyzine Pamoate 25 Mg Capsule PO Not Given BID SONIA Levetiracetam 750 mg/ Dextrose 107.5 mls @ 430 mls/hr 10/28/24 21:00 10/31/24 21:30 IVPB Infused Q12H SONIA Infusion Fentanyl Citrate 2,500 mcg in 250 mls @ 0 mls/hr 10/29/24 19:10 10/31/24 17:39 Fentanyl 2,500 Mcg/Ns 250 Ml IV CONT Infused .Q0M SONIA Titration Protocol Midazolam HCl 100 mg in 100 mls @ 0 mls/hr 10/29/24 19:10 10/31/24 17:45 Versed 100 Mg/Ns 100 Ml IV CONT 0 mg/hr .Q0M SONIA 0 mls/hr Titration Protocol Lactated Ringer's 1,000 mls @ 75 mls/hr 10/29/24 19:12 11/01/24 04:00 Lr - Lactated Ringers Iv IV CONT 75 mls/hr .[id number] SONIA Administration Piperacillin/Tazobactam/Dextrose 3.375 gm in 50 mls @ 100 mls/hr 10/29/24 21:00 11/01/24 03:25 Zosyn 3.375 Gm/Ns 50 Ml IVPB Infused Q6H SONIA Infusion Dexmedetomidine HCl 400 mcg in 100 mls @ 0 mls/hr 11/01/24 08:05 Precedex 400 Mcg/100 Ml IV CONT .Q0M SONIA Protocol Irbesartan 75 mg 10/25/24 09:00 10/29/24 08:47 Irbesartan 75 Mg Tablet PO Not Given DAILY SONIA Lactobacillus Acidophilus 1 tablet 10/25/24 09:00 10/29/24 08:47 Acidophilus/Bulgaricus Chewable Tablet PO Not Given DAILY SONIA Magnesium Oxide 400 mg 10/25/24 09:00 10/29/24 08:47 Magnesium Oxide 400 Mg Tablet PO Not Given DAILY SONIA Mirtazapine 15 mg 10/25/24 21:00 10/29/24 23:40 Mirtazapine 15 Mg Tablet PO 15 mg HS SONIA Administration Montelukast Sodium 10 mg 10/25/24 21:00 10/29/24 23:40 Montelukast Sodium 10 Mg Tablet PO 10 mg HS SONIA Administration Multi-Ingred Cream/Lotion/Oil/Oint 1 applic 10/29/24 21:00 10/31/24 21:19 Mineral Oil/White Petrolatum Ointment EACH EYE 1 applic Q12HR SONIA Administration Multivitamins/Calcium 1 tablet 10/25/24 09:00 10/29/24 08:47 Therapeutic Multivitamins/Minerals Tab (*Bkc) PO Not Given DAILY SONIA Ondansetron HCl 4 mg 10/29/24 14:00 Ondansetron Inj 4 Mg/2 Ml Vial IV PUSH ONCE PRN Nausea Oxycodone HCl 5 mg 10/25/24 08:02 Oxycodone Hcl (*Crx) 5 Mg Tab Ir PO Q4H PRN Pain Rated 7-10 Pantoprazole Sodium 20 mg 10/25/24 09:00 10/29/24 23:40 Pantoprazole Sod Sesquihydrate 20 Mg Tab PO 20 mg Q12HR SONIA Administration Pantoprazole Sodium 40 mg 10/30/24 09:00 10/31/24 21:18 Pantoprazole Sodium Iv 40 Mg Vial IV PUSH 40 mg Q12HR SONIA Administration Perflutren Lipid Microsphere 0 ml 10/31/24 07:33 Perflutren Lipid Microspheres 1.5 Ml Vial Diluted To 10 Ml Total Volume IV PUSH 11/03/24 07:33 ONCE PRN adequate visualization Protocol Potassium Chloride 10 meq 10/25/24 09:00 10/29/24 18:29 Potassium Chloride 10 Meq Er Tablet PO Not Given BID SONIA Simvastatin 20 mg 10/25/24 21:00 10/29/24 23:41 Simvastatin 20 Mg Tablet PO 20 mg HS SONIA Administration Sodium Chloride 10 ml 10/29/24 22:00 11/01/24 07:55 Central Line Flush IV PUSH 10 ml Q8HR SONIA Administration Sodium Chloride 20 ml 10/29/24 19:51 Central Line Flush IV PUSH PRN PRN after blood draws Sucralfate 1 gm 10/25/24 16:30 10/30/24 05:15 Sucralfate 1 Gm Tablet PO Not Given BIDAC SONIA Vitamin D 4,000 units 10/25/24 09:00 10/29/24 08:47 Cholecalciferol 1,000 Units Tablet PO Not Given DAILY [facility] Radiology Results: ITS Impressions Abdomen/Pelvis CT 10/24/24 19:41 IMPRESSION: 1. No evidence of appendicitis, diverticulitis or intestinal obstruction. 2. Highly suggestive of abscess in the right pararectal area. 3. Markedly thickened rectal wall with distended colon by gases. Further evaluation of the rectum is advised. 4. Hypodensities in both kidneys which may indicate pyelonephritis. Dilated ureters are also noted. 5. Thickened wall of the urinary bladder which may indicate cystitis versus infiltrative process. Further evaluation advised. 6. Intrahepatic and extrahepatic biliary dilatation. 7. Cholelithiasis. 8. Hepatomegaly. Enema w/Water Soluble 10/25/24 14:02 IMPRESSION: 1. Moderate amount of scattered colonic stool suggestive of constipation with no evident strictures/obstruction. MRCP 10/27/24 14:28 IMPRESSION: 1. Mild intra and extra hepatic biliary ductal dilation with both cholelithiasis and choledocholithiasis which does not appear currently obstructing. 2. Very small bilateral posterior layering pleural effusions. 3. Mild bilateral hydronephrosis. Cholangiogram,Operative 10/29/24 17:33 IMPRESSION: 1. Contrast injection delineates slowly mobile nonobstructing material within the dilated common hepatic and bile ducts the appearance of which favors sludge over very small gallstones. Labs Labs: Laboratory Results - last 24 hr 10/30/24 10/31/24 10/31/24 20:31 08:32 14:20 WBC RBC Hgb Hct MCV MCH MCHC RDW Plt Count MPV % Immature Plt Fraction Puncture Site Artline ABG pH 7.434 ABG pCO2 33.9 L ABG pO2 107.0 H ABG PO2/FiO2 Ratio 3.57 ABG HCO3 22.2 ABG O2 Saturation 98.1 ABG O2 Content 12.1 L ABG Base Excess -1.7 A-a Gradient 67.1 Oxyhemoglobin 97.1 Total Hemoglobin 8.7 L O2 Delivery Device Ventilator O2 Liters/Min Not Reportable Minute Volume Not Reportable Vent Rate 12 Vent Mode Cmv FiO2 30 Tidal Volume 400 PEEP 5 Peak Inspir Pressure Not Reportable Pressure Support Not Reportable Sodium Potassium Chloride Carbon Dioxide Anion Gap BUN Creatinine Estim Creat Clear Calc Estimated GFR Glucose Calcium Phosphorus Magnesium 2.0 Total Bilirubin AST ALT Alkaline Phosphatase Total Protein Albumin Blood Type O Positive Antibody Screen Negative 11/01/24 11/01/24 05:15 05:29 WBC 10.6 H RBC 2.82 L Hgb 8.3 L Hct 25.9 L MCV 91.8 MCH 29.4 MCHC 32.0 RDW 16.2 H Plt Count 95 L MPV 11.3 H % Immature Plt Fraction 8.8 Puncture Site Artline ABG pH 7.447 ABG pCO2 29.9 L ABG pO2 135.2 H ABG PO2/FiO2 Ratio 5.41 ABG HCO3 20.2 L ABG O2 Saturation 98.8 ABG O2 Content 12.5 L ABG Base Excess -3.2 A-a Gradient 7.5 Oxyhemoglobin 97.9 Total Hemoglobin 8.9 L O2 Delivery Device Ventilator O2 Liters/Min Not Reportable Minute Volume Not Reportable Vent Rate 12 Vent Mode Cmv FiO2 30 Tidal Volume 400 PEEP 5 Peak Inspir Pressure Not Reportable Pressure Support Not Reportable Sodium 135 L Potassium 3.8 Chloride 107 Carbon Dioxide 22 Anion Gap 6 BUN 18 H Creatinine 0.97 Estim Creat Clear Calc 49 Estimated GFR 57 L Glucose 109 Calcium 8.2 L Phosphorus 3.9 Magnesium 2.0 Total Bilirubin 0.9 AST 169 H ALT 181 H Alkaline Phosphatase 55 Total Protein 5.0 L Albumin 2.6 L Blood Type Antibody Screen
[2024-11-01] MEDS: levETIRAcetam IV 750 MG in DEXTROSE 5% 100 ML 400 MG IVPB (08:47)
[2024-11-01] MEDS: PANTOPRAZOLE SODIUM IV 40 MG VIAL IV PUSH ×2 (08:48→21:15)
[2024-11-01 09:58] LABS: Base Excess ABG -2.4 mEq/l (+/-2.0); Device VENTILATOR; Fractional Inspired Oxygen 25 %; HCO3 ABG 20.4 mEq/l (22.0-26.0); Oxygen Content ABG 11.3 %vol (16.0-22.0); Oxygen Saturation ABG 98.4 % (95.0-100.0); PCO2 ABG 27.5 mmHg (35.0-45.0); PO2 ABG 110.6 mmHg (80.0-100.0); PO2 FiO2 Ratio Arterial Blood 4.42 %; Site Drawn ARTLINE; Total Hemoglobin 8.1 g/dL (12.0-18.0); pH ABG 7.488 (7.350-7.450)
[2024-11-01 09:59] LABS: Arterial Blood Gas PEEP 5 cmH2O; Arterial Blood Gas Pressure Support 8 cmH2O; Arterial Blood Gas Vent Mode SPONTANEOUS
--- NOTE | 2024-11-01 11:02 | PCRCNOTE ---
RT extubated patient @ 1035 and placed on a 2L NC
[2024-11-01] MEDS: levETIRAcetam IV 750 MG in DEXTROSE 5% 100 ML 430 MG IVPB (21:15)
[2024-11-01 23:48] LABS: Glucose Point of Care 102 mg/dl (65-105)
[2024-11-02] VITALS (12 sets, daily range): BP systolic 128–152; BP diastolic 60–88; PULSE 59–117; RESP 12–27; TEMP 36.7–37; O2SAT 93–98
[2024-11-02] MEDS: PIPERACILLN/TAZ 3.375GM/NS50ML 3.375 GM/50 ML BAG IVPB ×4 (03:06→21:11)
[2024-11-02] MEDS: HYDROCORTISONE SODIUM SUCCINATE 100 MG/2 ML VIAL 50 MG IV PUSH (03:06)
[2024-11-02] MEDS: CENTRAL LINE FLUSH 10 ML IV PUSH ×3 (05:07→21:11)
[2024-11-02 05:20] LABS: Glucose Point of Care 92 mg/dl (65-105)
[2024-11-02 05:30] LABS: Basophils Percent Auto 0.1 % (0.2-1.2); Eosinophils Percent Auto 0.4 % (0-4.4); Hematocrit 25.5 % (37.0-47.0); Hemoglobin 7.9 g/dL (12.0-15.0); Immature Granulocyte Absolute 0.19 K/mm3 (0.00-0.031); Immature Granulocyte Percent A 2.2 % (0-0.5); Immature Platelet Fraction Pct 7.4 % (0.9-11.2); Lymphocytes Absolute Auto 0.69 K/mm3 (0.9-3.2); Lymphocytes Percent Auto 8.1 % (18.3-44.2); Mean Corpuscular Hemoglobin 28.9 pg (26-34); Mean Corpuscular Volume 93.4 fl (80-100); Mean Platelet Volume 11.4 fl (7.4-10.4); Monocytes Absolute Auto 0.6 K/mm3 (0.1-0.6); Monocytes Percent Auto 7.2 % (2.6-8.5); Nucleated Red Blood Cells Perc 0.4 % (0.0-0.2); Platelet Count Result 109 k/mm3 (150-375); Red Blood Count 2.73 M/mm3 (4.2-5.4); Red Cell Distribution Width 16.1 % (11.5-14.5); White Blood Count 8.6 K/mm3 (4.5-10.0)
[2024-11-02 05:41] LABS: Potassium 2.9 mmol/L (3.4-5.0)
[2024-11-02 05:43] LABS: Alanine Aminotransferase 111 U/L (6-35); Albumin Level 2.5 g/dL (3.5-5.1); Alkaline Phosphatase 61 U/L (38-126); Anion Gap 7 mmol/L (4-12); Aspartate Amino Transferase 79 U/L (14-36); Blood Urea Nitrogen 18 mg/dL (7-17); Calcium 7.9 mg/dL (8.4-10.2); Carbon Dioxide 25 mmol/L (22-30); Chloride 104 mmol/L (98-107); Estimated CRCL calculation 43 ml/min; Estimated Glomerular Filt Rate 56; Glucose 80 mg/dL (65-110); Magnesium 1.8 mg/dL (1.6-2.3); Phosphorus 2.9 mg/dL (2.5-4.5); Potassium 2.9 mmol/L (3.4-5.0); Sodium 136 mmol/L (137-145)
--- NOTE | 2024-11-02 08:58 | P.PNGS_ITS ---
Progress Note: A&P Assessment and Plan (1) Chronic cholecystitis due to cholelithiasis with choledocholithiasis: Code(s): K80.64 - Calculus of gallbladder and bile duct with chronic cholecystitis without obstruction Status: Acute Assessment and Plan: Doing well. Will start full liquids now that patient is extubated. Wound is healing well. Sit up on side of the bed. Can transfer out of ICU from surgical standpoint. (2) Acute respiratory failure: Code(s): J96.00 - Acute respiratory failure, unspecified whether with hypoxia or hypercapnia Status: Acute Assessment and Plan: Extubated yesterday and doing quite well. (3) Postoperative anemia due to acute blood loss: Code(s): D62 - Acute posthemorrhagic anemia Status: Acute Assessment and Plan: Stable anemia, slightly decreasing last 3 days but could well be just dilutional effects. No evidence of current bleeding. (4) Chronic indwelling White catheter: Code(s): Z97.8 - Presence of other specified devices Status: Chronic (5) Postoperative hemorrhagic shock: Qualifiers: Encounter type: subsequent encounter Qualified Code(s): T81.19XD - Other postprocedural shock, subsequent encounter Code(s): T81.19XA - Other postprocedural shock, initial encounter Status: Acute Assessment and Plan: Essentially resolved. Okay to transfer out of ICU when Dr. Watts agrees. H&H is stable, urine output is good. Off all vasopressors. Subjective Subjective Date/Time Seen: 11/02/24 08:58 Post Op day: 4 Patient reports: feels better (Extubated and wants to eat), bowel movement and afebrile Exam Const: General: comfortable, alert and awake GI: Inspection: incision (Incision dry and healing well) and other (HUMAIRA output serosanguineous) GI Palp: Yes Soft to palpation, Yes Tenderness to palpation present (GI) and No Guarding due to palpation present (GI) Objective Data Vital Signs Vital Signs: Vital Signs - 24 hr 11/01/24 10:00 11/01/24 10:11/01/24 10:40 Temperature 36.6 C Pulse Rate 51 L 51 L Respiratory Rate 11 L Blood Pressure 136/78 Pulse Oximetry 100 99 Oxygen Delivery Nasal Cannula Oxygen Flow Rate 2 Fraction of Inspired Oxygen 28 11/01/24 12:00 11/01/24 12:00 11/01/24 12:00 Temperature 36.4 C L Pulse Rate 61 61 Respiratory Rate 18 Blood Pressure 130/67 Pulse Oximetry 97 Oxygen Delivery Room Air Oxygen Flow Rate Fraction of Inspired Oxygen 11/01/24 14:00 11/01/24 14:00 11/01/24 16:00 Temperature 36.4 C L Pulse Rate 61 61 71 Respiratory Rate 18 18 Blood Pressure 130/67 Pulse Oximetry 97 97 Oxygen Delivery Room Air Oxygen Flow Rate Fraction of Inspired Oxygen 11/01/24 16:00 11/01/24 16:00 11/01/24 18:00 Temperature 36.6 C Pulse Rate 71 71 77 Respiratory Rate 18 Blood Pressure 135/65 Pulse Oximetry 98 Oxygen Delivery Oxygen Flow Rate Fraction of Inspired Oxygen 11/01/24 18:00 11/01/24 20:00 11/01/24 20:00 Temperature 36.4 C 36.9 C Pulse Rate 77 61 Respiratory Rate 16 16 Blood Pressure 132/57 L 140/61 Pulse Oximetry 98 96 95 Oxygen Delivery Room Air Oxygen Flow Rate Fraction of Inspired Oxygen 11/01/24 20:00 11/01/24 22:00 11/01/24 22:00 Temperature Pulse Rate 63 53 L 53 L Respiratory Rate 16 Blood Pressure 148/70 H Pulse Oximetry 96 Oxygen Delivery Oxygen Flow Rate Fraction of Inspired Oxygen 11/02/24 00:00 11/02/24 00:00 11/02/24 00:00 Temperature 36.7 C Pulse Rate 63 59 L Respiratory Rate 16 Blood Pressure 137/60 Pulse Oximetry 95 Oxygen Delivery Room Air Oxygen Flow Rate Fraction of Inspired Oxygen 11/02/24 02:00 11/02/24 02:00 11/02/24 04:00 Temperature Pulse Rate 71 71 Respiratory Rate 12 Blood Pressure 133/84 Pulse Oximetry 93 95 Oxygen Delivery Room Air Oxygen Flow Rate Fraction of Inspired Oxygen 11/02/24 04:00 11/02/24 04:00 11/02/24 06:00 Temperature 36.9 C Pulse Rate 60 63 63 Respiratory Rate 16 Blood Pressure 135/60 Pulse Oximetry 95 Oxygen Delivery Oxygen Flow Rate Fraction of Inspired Oxygen 11/02/24 06:00 11/02/24 08:00 Temperature 37.0 C Pulse Rate 63 86 Respiratory Rate 17 19 Blood Pressure 143/66 H 151/88 H Pulse Oximetry 94 93 Oxygen Delivery Oxygen Flow Rate Fraction of Inspired Oxygen Intake/Output Intake/Output: Intake & Output 10/30/24 10/31/24 11/01/24 11/02/24 23:59 23:59 23:59 23:59 Intake Total 6289.3 2251.1 1591.9 385 Output Total 975 1740 2475 730 Balance 5314.3 511.1 -883.1 -345 Meds/Results Medications: Active Medications Generic Name Dose Route Start Last Admin Trade Name Freq PRN Reason Stop Dose Admin Acetaminophen 1,000 mg 10/25/24 08:02 Acetaminophen 500 Mg Tablet PO Q6H PRN Pain 1-3 or fever Docusate Sodium 100 mg 10/25/24 09:00 10/29/24 18:29 Docusate Sodium 100 Mg Capsule PO Not Given BID [facility] Enoxaparin Sodium 40 mg 11/02/24 09:00 Enoxaparin 40 Mg/0.4 Ml Syringe SUB-Q DAILY [facility] Fentanyl Citrate 12.5 mcg 10/29/24 19:12 Fentanyl Citrate Inj (*Crx) 100 Mcg/2 Ml Vial IV PUSH Q2H PRN Breakthrough Pain Rated 4-6 or NPO Fentanyl Citrate 25 mcg 10/29/24 19:12 Fentanyl Citrate Inj (*Crx) 100 Mcg/2 Ml Vial IV PUSH Q2H PRN Breakthrough Pain Rated 7-10 or NPO Hydrocortisone Sodium Succinate 50 mg 10/31/24 15:00 11/02/24 03:06 Hydrocortisone Sodium Succinate 100 Mg/2 Ml Vial IV PUSH 11/02/24 14:59 50 mg Q12H SONIA Administration Hydroxyzine Pamoate 25 mg 10/25/24 17:00 10/29/24 18:29 Hydroxyzine Pamoate 25 Mg Capsule PO Not Given BID SONIA Levetiracetam 750 mg/ Dextrose 107.5 mls @ 430 mls/hr 10/28/24 21:00 11/01/24 21:30 IVPB Infused Q12H [facility] Infusion Midazolam HCl 100 mg in 100 mls @ 0 mls/hr 10/29/24 19:10 10/31/24 17:45 Versed 100 Mg/Ns 100 Ml IV CONT 0 mg/hr .Q0M SONIA 0 mls/hr Titration Protocol Piperacillin/Tazobactam/Dextrose 3.375 gm in 50 mls @ 100 mls/hr 10/29/24 21:00 11/02/24 03:06 Zosyn 3.375 Gm/Ns 50 Ml IVPB 100 mls/hr Q6H SONIA Administration Dexmedetomidine HCl 400 mcg in 100 mls @ 0 mls/hr 11/01/24 08:05 Precedex 400 Mcg/100 Ml IV CONT .Q0M SONIA Protocol Irbesartan 75 mg 11/01/24 09:26 Irbesartan 75 Mg Tablet PO DAILY [facility] Lactobacillus Acidophilus 1 tablet 10/25/24 09:00 10/29/24 08:47 Acidophilus/Bulgaricus Chewable Tablet PO Not Given DAILY [facility]ONIA Magnesium Oxide 400 mg 10/25/24 09:00 10/29/24 08:47 Magnesium Oxide 400 Mg Tablet PO Not Given DAILY [facility] Mirtazapine 15 mg 10/25/24 21:00 10/29/24 23:40 Mirtazapine 15 Mg Tablet PO 15 mg HS SONIA Administration Montelukast Sodium 10 mg 10/25/24 21:00 10/29/24 23:40 Montelukast Sodium 10 Mg Tablet PO 10 mg HS SONIA Administration Multivitamins/Calcium 1 tablet 10/25/24 09:00 10/29/24 08:47 Therapeutic Multivitamins/Minerals Tab (*Bkc) PO Not Given DAILY SONIA Ondansetron HCl 4 mg 10/29/24 14:00 Ondansetron Inj 4 Mg/2 Ml Vial IV PUSH ONCE PRN Nausea Oxycodone HCl 5 mg 10/25/24 08:02 Oxycodone Hcl (*Crx) 5 Mg Tab Ir PO Q4H PRN Pain Rated 7-10 Pantoprazole Sodium 40 mg 10/30/24 09:00 11/01/24 21:15 Pantoprazole Sodium Iv 40 Mg Vial IV PUSH 40 mg Q12HR SONIA Administration Perflutren Lipid Microsphere 0 ml 10/31/24 07:33 Perflutren Lipid Microspheres 1.5 Ml Vial Diluted To 10 Ml Total Volume IV PUSH 11/03/24 07:33 ONCE PRN adequate visualization Protocol Potassium Chloride 10 meq 10/25/24 09:00 10/29/24 18:29 Potassium Chloride 10 Meq Er Tablet PO Not Given BID SONIA Potassium Chloride 40 meq 11/02/24 13:00 Potassium Chloride 20 Meq Er Tablet PO 11/02/24 13:01 ONCE ONE Simvastatin 20 mg 10/25/24 21:00 10/29/24 23:41 Simvastatin 20 Mg Tablet PO 20 mg HS SONIA Administration Sodium Chloride 10 ml 10/29/24 22:00 11/02/24 05:07 Central Line Flush IV PUSH 10 ml Q8HR SONIA Administration Sodium Chloride 20 ml 10/29/24 19:51 Central Line Flush IV PUSH PRN PRN after blood draws Sucralfate 1 gm 10/25/24 16:30 10/30/24 05:15 Sucralfate 1 Gm Tablet PO Not Given BIDAC SONIA Vitamin D 4,000 units 10/25/24 09:00 10/29/24 08:47 Cholecalciferol 1,000 Units Tablet PO Not Given DAILY SONIA Radiology Results: ITS Impressions Abdomen/Pelvis CT 10/24/24 19:41 IMPRESSION: 1. No evidence of appendicitis, diverticulitis or intestinal obstruction. 2. Highly suggestive of abscess in the right pararectal area. 3. Markedly thickened rectal wall with distended colon by gases. Further evaluation of the rectum is advised. 4. Hypodensities in both kidneys which may indicate pyelonephritis. Dilated ureters are also noted. 5. Thickened wall of the urinary bladder which may indicate cystitis versus infiltrative process. Further evaluation advised. 6. Intrahepatic and extrahepatic biliary dilatation. 7. Cholelithiasis. 8. Hepatomegaly. Enema w/Water Soluble 10/25/24 14:02 IMPRESSION: 1. Moderate amount of scattered colonic stool suggestive of constipation with no evident strictures/obstruction. MRCP 10/27/24 14:28 IMPRESSION: 1. Mild intra and extra hepatic biliary ductal dilation with both cholelithiasis and choledocholithiasis which does not appear currently obstructing. 2. Very small bilateral posterior layering pleural effusions. 3. Mild bilateral hydronephrosis. Cholangiogram,Operative 10/29/24 17:33 IMPRESSION: 1. Contrast injection delineates slowly mobile nonobstructing material within the dilated common hepatic and bile ducts the appearance of which favors sludge over very small gallstones. Chest X-Ray 11/01/24 08:21 IMPRESSION: 1. Left basilar opacities which could represent atelectasis or pneumonia. 2. Lines and tubes in expected position. Labs Labs: Laboratory Results - last 24 hr 10/27/24 11/01/24 11/01/24 07:06 09:55 23:46 WBC RBC Hgb Hct MCV MCH MCHC RDW Plt Count MPV Immature Gran % (Auto) Neut % (Auto) Lymph % (Auto) [place] % (Auto) Eos % (Auto) Baso % (Auto) Lymph # (Auto) [place] # (Auto) Eos # (Auto) Baso # (Auto) Abs Immat Gran (auto) Absolute Neuts (auto) Absolute Nucleated RBC Nucleated RBC % % Immature Plt Fraction Puncture Site Artline ABG pH 7.488 H ABG pCO2 27.5 L ABG pO2 110.6 H ABG PO2/FiO2 Ratio 4.42 ABG HCO3 20.4 L ABG O2 Saturation 98.4 ABG O2 Content 11.3 L ABG Base Excess -2.4 A-a Gradient 35.0 Oxyhemoglobin 97.0 Total Hemoglobin 8.1 L O2 Delivery Device Ventilator O2 Liters/Min Not Reportable Minute Volume Not Reportable Vent Rate Not Reportable Vent Mode Spontaneous FiO2 25 Tidal Volume Not Reportable PEEP 5 Peak Inspir Pressure Not Reportable Pressure Support 8 Sodium Potassium Chloride Carbon Dioxide Anion Gap BUN Creatinine Estim Creat Clear Calc Estimated GFR Glucose POC Capillary Glucose 102 Calcium Phosphorus Magnesium Total Bilirubin AST ALT Alkaline Phosphatase Total Protein Albumin Blood Type O Positive Antibody Screen Negative Crossmatch See Detail 11/02/24 11/02/24 11/02/24 05:06 05:06 05:09 WBC 8.6 RBC 2.73 L Hgb 7.9 L Hct 25.5 L MCV 93.4 MCH 28.9 MCHC 31.0 L RDW 16.1 H Plt Count 109 L MPV 11.4 H Immature Gran % (Auto) 2.2 H Neut % (Auto) 82.0 H Lymph % (Auto) 8.1 L [place] % (Auto) 7.2 Eos % (Auto) 0.4 Baso % (Auto) 0.1 L Lymph # (Auto) 0.69 L [place] # (Auto) 0.6 Eos # (Auto) 0.0 Baso # (Auto) 0.0 Abs Immat Gran (auto) 0.19 H Absolute Neuts (auto) 7.0 H Absolute Nucleated RBC 0.030 H Nucleated RBC % 0.4 H % Immature Plt Fraction 7.4 Puncture Site ABG pH ABG pCO2 ABG pO2 ABG PO2/FiO2 Ratio ABG HCO3 ABG O2 Saturation ABG O2 Content ABG Base Excess A-a Gradient Oxyhemoglobin Total Hemoglobin O2 Delivery Device O2 Liters/Min Minute Volume Vent Rate Vent Mode FiO2 Tidal Volume PEEP Peak Inspir Pressure Pressure Support Sodium 136 L Potassium 2.9 L 2.9 L Chloride 104 Carbon Dioxide 25 Anion Gap 7 BUN 18 H Creatinine 0.99 Estim Creat Clear Calc 43 Estimated GFR 56 L Glucose 80 POC Capillary Glucose 92 Calcium 7.9 L Phosphorus 2.9 Magnesium 1.8 Total Bilirubin 1.0 AST 79 H ALT 111 H Alkaline Phosphatase 61 Total Protein 5.0 L Albumin 2.5 L Blood Type Antibody Screen Crossmatch
[2024-11-02] MEDS: IRBESARTAN 75 MG TABLET PO (08:59)
[2024-11-02] MEDS: levETIRAcetam IV 750 MG in DEXTROSE 5% 100 ML 430 MG IVPB ×2 (09:00→21:10)
[2024-11-02] MEDS: PANTOPRAZOLE SODIUM IV 40 MG VIAL IV PUSH ×2 (09:00→21:11)
--- NOTE | 2024-11-02 09:07 | P.PNINT_ITS ---
Progress Note: A&P Assessment and Plan (1) Cholelithiasis with choledocholithiasis: Code(s): K80.70 - Calculus of gallbladder and bile duct without cholecystitis without obstruction Status: Acute Assessment and Plan: Patient patient with choledocholithiasis and cholecystitis -10/29: Status post: Attempted laparoscopic cholecystectomy, open cholecystectomy with intraoperative cholangiogram, control hepatic vein hemorrhage -EBL 1000 ml Surgery planning to remove NG tube and start full liquid diet today. Management deferred to General surgery (2) Septic shock: Code(s): A41.9 - Sepsis, unspecified organism; R65.21 - Severe sepsis with septic shock Status: Acute Assessment and Plan: Septic shock resolved with IV fluids and now patient is off of vasopressors. Discontinue stress dose steroids -continue Zosyn (10/29) -lactic acid has normalized -DC art line (3) Acute respiratory failure: Code(s): J96.00 - Acute respiratory failure, unspecified whether with hypoxia or hypercapnia Status: Acute Assessment and Plan: Postoperative acute respiratory failure, patient was intubated during the procedure and remained intubated and transferred to the ICU for further manage Extubated 11/01. Patient was also given Lasix Now on room air Will order incentive spirometry Most recent Chest x-ray (4) Postoperative anemia due to acute blood loss: Code(s): D62 - Acute posthemorrhagic anemia Status: Acute Assessment and Plan: Intraoperative hemorrhage with approximately 1000 mL in blood loss -status post 4 units of packed RBCs, 2 units of FFP and 1 unit of cryoprecipitate -continue to monitor CBC -10/30: transfused 1 unit of packed RBCs -hemoglobin stable. Monitor (5) Elevated LFTs: Code(s): R79.89 - Other specified abnormal findings of blood chemistry Status: Acute Assessment and Plan: Elevated LFTs likely related to hypotension and shock liver -LFTs trending down, will continue to monitor (6) Thrombocytopenia: Code(s): D69.6 - Thrombocytopenia, unspecified Status: Acute Assessment and Plan: Postoperative thrombocytopenia likely related to consumption -could also be related to septic shock and decreased marrow production -10/31: Patient was transferred 1 unit platelets Count improving. Monitor Plan DVT prophylaxis: SCDs, Lovenox Stress ulcer prophylaxis: Protonix IV q.12 hours Nutrition: Surgery plans to remove Dobbhoff tube and start full liquid diet. Code Status: Do not resuscitate Transfer out of ICU today Subjective Date/time seen: 11/02/24 She was extubated yesterday after a successful weaning trial. Patient has done well and currently on room air. Dobbhoff is in place and patient is NPO. Minimal bloody output from HUMAIRA drain. She denies any complaints. She states she is hungry and would like to eat food. Patient denies fever, chest pain, shortness of breath, cough, nausea vomiting, abdominal pain,, diarrhea, headache or constipation. She is not on any infusions. All other systems were reviewed and were negative Interval history: Reason for consult: Septic shock, acute respiratory failure, anemia secondary to bleeding during procedure, status post multiple units of blood products, lactic acidosis Review of Systems Review of Systems: All systems reviewed & are unremarkable except as noted in HPI and below (HPI) Exam Narrative: General: Alert awake and in in no acute distress HEENT:? Pupils equal reactive, sclerae is clear, Neck:? Supple Respiratory:? Coarse breath sounds bilaterally, decreased at bases, no rales or wheezing noted, adequate air entry Cardiac:? S1-S2 is normal regular rate and rhythm Abdomen:? Soft, tender to palpation in right upper quad, hypoactive bowel sounds, nondistended. HUMAIRA drain in place with minimal sanguinous output Extremities:? Bilateral lower extremities are contracted, bilateral lower extremity and pedal edema, palpable pedal pulses Neuro:? AO x 3 follows commands the extremities Skin:? No skin lesions noted, right upper quadrant incision which is covered under dressing, clean dry and intact Objective Data Vital Signs Vital Signs: Vital Signs - 24 hr 11/01/24 10:00 11/01/24 10:00 11/01/24 10:40 Temperature 36.6 C Pulse Rate 51 L 51 L Respiratory Rate 11 L Blood Pressure 136/78 Pulse Oximetry 100 99 Oxygen Delivery Nasal Cannula Oxygen Flow Rate 2 Fraction of Inspired Oxygen 28 11/01/24 12:00 11/01/24 12:00 11/01/24 12:00 Temperature 36.4 C L Pulse Rate 61 61 Respiratory Rate 18 Blood Pressure 130/67 Pulse Oximetry 97 Oxygen Delivery Room Air Oxygen Flow Rate Fraction of Inspired Oxygen 11/01/24 14:00 11/01/24 14:00 11/01/24 16:00 Temperature 36.4 C L Pulse Rate 61 61 71 Respiratory Rate 18 18 Blood Pressure 130/67 Pulse Oximetry 97 97 Oxygen Delivery Room Air Oxygen Flow Rate Fraction of Inspired Oxygen 11/01/24 16:00 11/01/24 16:00 11/01/24 18:00 Temperature 36.6 C Pulse Rate 71 71 77 Respiratory Rate 18 Blood Pressure 135/65 Pulse Oximetry 98 Oxygen Delivery Oxygen Flow Rate Fraction of Inspired Oxygen 11/01/24 18:00 11/01/24 20:00 11/01/24 20:00 Temperature 36.4 C 36.9 C Pulse Rate 77 61 Respiratory Rate 16 16 Blood Pressure 132/57 L 140/61 Pulse Oximetry 98 96 95 Oxygen Delivery Room Air Oxygen Flow Rate Fraction of Inspired Oxygen 11/01/24 20:00 11/01/24 22:00 11/01/24 22:00 Temperature Pulse Rate 63 53 L 53 L Respiratory Rate 16 Blood Pressure 148/70 H Pulse Oximetry 96 Oxygen Delivery Oxygen Flow Rate Fraction of Inspired Oxygen 11/02/24 00:00 11/02/24 00:00 11/02/24 00:00 Temperature 36.7 C Pulse Rate 63 59 L Respiratory Rate 16 Blood Pressure 137/60 Pulse Oximetry 95 Oxygen Delivery Room Air Oxygen Flow Rate Fraction of Inspired Oxygen 11/02/24 02:00 11/02/24 02:00 11/02/24 04:00 Temperature Pulse Rate 71 71 Respiratory Rate 12 Blood Pressure 133/84 Pulse Oximetry 93 95 Oxygen Delivery Room Air Oxygen Flow Rate Fraction of Inspired Oxygen 11/02/24 04:00 11/02/24 04:00 11/02/24 06:00 Temperature 36.9 C Pulse Rate 60 63 63 Respiratory Rate 16 Blood Pressure 135/60 Pulse Oximetry 95 Oxygen Delivery Oxygen Flow Rate Fraction of Inspired Oxygen 11/02/24 06:00 11/02/24 08:00 Temperature 37.0 C Pulse Rate 63 86 Respiratory Rate 17 19 Blood Pressure 143/66 H 151/88 H Pulse Oximetry 94 93 Oxygen Delivery Oxygen Flow Rate Fraction of Inspired Oxygen Intake/Output Intake/Output: Intake & Output 10/30/24 10/31/24 11/01/24 11/02/24 23:59 23:59 23:59 23:59 Intake Total 6289.3 2251.1 1591.9 435 Output Total 975 1740 2475 730 Balance 5314.3 511.1 -883.1 -295 Meds/Results Medications: Active Medications Generic Name Dose Route Start Last Admin Trade Name Freq PRN Reason Stop Dose Admin Acetaminophen 1,000 mg 10/25/24 08:02 Acetaminophen 500 Mg Tablet PO Q6H PRN Pain 1-3 or fever Docusate Sodium 100 mg 10/25/24 09:00 10/29/24 18:29 Docusate Sodium 100 Mg Capsule PO Not Given BID [facility] Enoxaparin Sodium 40 mg 11/02/24 09:00 Enoxaparin 40 Mg/0.4 Ml Syringe SUB-Q DAILY [facility] Fentanyl Citrate 12.5 mcg 10/29/24 19:12 Fentanyl Citrate Inj (*Crx) 100 Mcg/2 Ml Vial IV PUSH Q2H PRN Breakthrough Pain Rated 4-6 or NPO Fentanyl Citrate 25 mcg 10/29/24 19:12 Fentanyl Citrate Inj (*Crx) 100 Mcg/2 Ml Vial IV PUSH Q2H PRN Breakthrough Pain Rated 7-10 or NPO Hydrocortisone Sodium Succinate 50 mg 10/31/24 15:00 11/02/24 03:06 Hydrocortisone Sodium Succinate 100 Mg/2 Ml Vial IV PUSH 11/02/24 14:59 50 mg Q12H SONIA Administration Hydroxyzine Pamoate 25 mg 10/25/24 17:00 10/29/24 18:29 Hydroxyzine Pamoate 25 Mg Capsule PO Not Given BID [facility] Levetiracetam 750 mg/ Dextrose 107.5 mls @ 430 mls/hr 10/28/24 21:00 11/02/24 09:00 IVPB 430 mls/hr Q12H SONIA Administration Midazolam HCl 100 mg in 100 mls @ 0 mls/hr 10/29/24 19:10 10/31/24 17:45 Versed 100 Mg/Ns 100 Ml IV CONT 0 mg/hr .Q0M SONIA 0 mls/hr Titration Protocol Piperacillin/Tazobactam/Dextrose 3.375 gm in 50 mls @ 100 mls/hr 10/29/24 21:00 11/02/24 09:00 Zosyn 3.375 Gm/Ns 50 Ml IVPB 100 mls/hr Q6H SONIA Administration Dexmedetomidine HCl 400 mcg in 100 mls @ 0 mls/hr 11/01/24 08:05 Precedex 400 Mcg/100 Ml IV CONT .Q0M SONIA Protocol Irbesartan 75 mg 11/01/24 09:26 11/02/24 08:59 Irbesartan 75 Mg Tablet PO 75 mg DAILY [facility] Administration Lactobacillus Acidophilus 1 tablet 10/25/24 09:00 10/29/24 08:47 Acidophilus/Bulgaricus Chewable Tablet PO Not Given DAILY [facility] Magnesium Oxide 400 mg 10/25/24 09:00 10/29/24 08:47 Magnesium Oxide 400 Mg Tablet PO Not Given DAILY [facility] Mirtazapine 15 mg 10/25/24 21:00 10/29/24 23:40 Mirtazapine 15 Mg Tablet PO 15 mg HS SONIA Administration Montelukast Sodium 10 mg 10/25/24 21:00 10/29/24 23:40 Montelukast Sodium 10 Mg Tablet PO 10 mg HS SONIA Administration Multivitamins/Calcium 1 tablet 10/25/24 09:00 10/29/24 08:47 Therapeutic Multivitamins/Minerals Tab (*Bkc) PO Not Given DAILY [facility] Ondansetron HCl 4 mg 10/29/24 14:00 Ondansetron Inj 4 Mg/2 Ml Vial IV PUSH ONCE PRN Nausea Oxycodone HCl 5 mg 10/25/24 08:02 Oxycodone Hcl (*Crx) 5 Mg Tab Ir PO Q4H PRN Pain Rated 7-10 Pantoprazole Sodium 40 mg 10/30/24 09:00 11/02/24 09:00 Pantoprazole Sodium Iv 40 Mg Vial IV PUSH 40 mg Q12HR SONIA Administration Perflutren Lipid Microsphere 0 ml 10/31/24 07:33 Perflutren Lipid Microspheres 1.5 Ml Vial Diluted To 10 Ml Total Volume IV PUSH 11/03/24 07:33 ONCE PRN adequate visualization Protocol Potassium Chloride 10 meq 10/25/24 09:00 10/29/24 18:29 Potassium Chloride 10 Meq Er Tablet PO Not Given BID [facility] Potassium Chloride 40 meq 11/02/24 13:00 Potassium Chloride 20 Meq Er Tablet PO 11/02/24 13:01 ONCE ONE Simvastatin 20 mg 10/25/24 21:00 10/29/24 23:41 Simvastatin 20 Mg Tablet PO 20 mg HS SONIA Administration Sodium Chloride 10 ml 10/29/24 22:00 11/02/24 05:07 Central Line Flush IV PUSH 10 ml Q8HR SONIA Administration Sodium Chloride 20 ml 10/29/24 19:51 Central Line Flush IV PUSH PRN PRN after blood draws Sucralfate 1 gm 10/25/24 16:30 10/30/24 05:15 Sucralfate 1 Gm Tablet PO Not Given BIDAC SONIA Vitamin D 4,000 units 10/25/24 09:00 10/29/24 08:47 Cholecalciferol 1,000 Units Tablet PO Not Given DAILY [facility] Radiology Results: ITS Impressions Abdomen/Pelvis CT 10/24/24 19:41 IMPRESSION: 1. No evidence of appendicitis, diverticulitis or intestinal obstruction. 2. Highly suggestive of abscess in the right pararectal area. 3. Markedly thickened rectal wall with distended colon by gases. Further evaluation of the rectum is advised. 4. Hypodensities in both kidneys which may indicate pyelonephritis. Dilated ureters are also noted. 5. Thickened wall of the urinary bladder which may indicate cystitis versus infiltrative process. Further evaluation advised. 6. Intrahepatic and extrahepatic biliary dilatation. 7. Cholelithiasis. 8. Hepatomegaly. Enema w/Water Soluble 10/25/24 14:02 IMPRESSION: 1. Moderate amount of scattered colonic stool suggestive of constipation with no evident strictures/obstruction. MRCP 10/27/24 14:28 IMPRESSION: 1. Mild intra and extra hepatic biliary ductal dilation with both cholelithiasis and choledocholithiasis which does not appear currently obstructing. 2. Very small bilateral posterior layering pleural effusions. 3. Mild bilateral hydronephrosis. Cholangiogram,Operative 10/29/24 17:33 IMPRESSION: 1. Contrast injection delineates slowly mobile nonobstructing material within the dilated common hepatic and bile ducts the appearance of which favors sludge over very small gallstones. Chest X-Ray 11/01/24 08:21 IMPRESSION: 1. Left basilar opacities which could represent atelectasis or pneumonia. 2. Lines and tubes in expected position. Labs Labs: Laboratory Results - last 24 hr 10/27/24 11/01/24 11/01/24 07:06 09:55 23:46 WBC RBC Hgb Hct MCV MCH MCHC RDW Plt Count MPV Immature Gran % (Auto) Neut % (Auto) Lymph % (Auto) Upton % (Auto) Eos % (Auto) Baso % (Auto) Lymph # (Auto) Upton # (Auto) Eos # (Auto) Baso # (Auto) Abs Immat Gran (auto) Absolute Neuts (auto) Absolute Nucleated RBC Nucleated RBC % % Immature Plt Fraction Puncture Site Artline ABG pH 7.488 H ABG pCO2 27.5 L ABG pO2 110.6 H ABG PO2/FiO2 Ratio 4.42 ABG HCO3 20.4 L ABG O2 Saturation 98.4 ABG O2 Content 11.3 L ABG Base Excess -2.4 A-a Gradient 35.0 Oxyhemoglobin 97.0 Total Hemoglobin 8.1 L O2 Delivery Device Ventilator O2 Liters/Min Not Reportable Minute Volume Not Reportable Vent Rate Not Reportable Vent Mode Spontaneous FiO2 25 Tidal Volume Not Reportable PEEP 5 Peak Inspir Pressure Not Reportable Pressure Support 8 Sodium Potassium Chloride Carbon Dioxide Anion Gap BUN Creatinine Estim Creat Clear Calc Estimated GFR Glucose POC Capillary Glucose 102 Calcium Phosphorus Magnesium Total Bilirubin AST ALT Alkaline Phosphatase Total Protein Albumin Blood Type O Positive Antibody Screen Negative Crossmatch See Detail 11/02/24 11/02/24 11/02/24 05:06 05:06 05:09 WBC 8.6 RBC 2.73 L Hgb 7.9 L Hct 25.5 L MCV 93.4 MCH 28.9 MCHC 31.0 L RDW 16.1 H Plt Count 109 L MPV 11.4 H Immature Gran % (Auto) 2.2 H Neut % (Auto) 82.0 H Lymph % (Auto) 8.1 L Upton % (Auto) 7.2 Eos % (Auto) 0.4 Baso % (Auto) 0.1 L Lymph # (Auto) 0.69 L Upton # (Auto) 0.6 Eos # (Auto) 0.0 Baso # (Auto) 0.0 Abs Immat Gran (auto) 0.19 H Absolute Neuts (auto) 7.0 H Absolute Nucleated RBC 0.030 H Nucleated RBC % 0.4 H % Immature Plt Fraction 7.4 Puncture Site ABG pH ABG pCO2 ABG pO2 ABG PO2/FiO2 Ratio ABG HCO3 ABG O2 Saturation ABG O2 Content ABG Base Excess A-a Gradient Oxyhemoglobin Total Hemoglobin O2 Delivery Device O2 Liters/Min Minute Volume Vent Rate Vent Mode FiO2 Tidal Volume PEEP Peak Inspir Pressure Pressure Support Sodium 136 L Potassium 2.9 L 2.9 L Chloride 104 Carbon Dioxide 25 Anion Gap 7 BUN 18 H Creatinine 0.99 Estim Creat Clear Calc 43 Estimated GFR 56 L Glucose 80 POC Capillary Glucose 92 Calcium 7.9 L Phosphorus 2.9 Magnesium 1.8 Total Bilirubin 1.0 AST 79 H ALT 111 H Alkaline Phosphatase 61 Total Protein 5.0 L Albumin 2.5 L Blood Type Antibody Screen Crossmatch Quality VTE Prophylaxis VTE prophylaxis: mechanical ordered
[2024-11-02] MEDS: ENOXAPARIN 40 MG/0.4 ML SYRINGE SUB-Q (09:23)
[2024-11-02] MEDS: POTASSIUM CHLORIDE 20 MEQ ER TABLET 40 MEQ PO ×2 (10:18→14:27)
[2024-11-02 11:26] LABS: Glucose Point of Care 152 mg/dl (65-105)
--- NOTE | 2024-11-02 11:44 | PCNFU ---
Nutrition Follow-Up Complete: Inadequate energy intake related to recent surgery and intubation as evidenced by NPO goal: Tolerate tube feeding Meet estimated nutrition needs Patient is progressing towards the goal. Pt current nutrition is full liquids. Last recorded weight is 68.4 kg, up from 64 kg Bowel Motility: No BM reported. Labs Reviewed: Glu 135, BUN 21, K 3.2, Hct 29.3, Hgb 9.3 Meds Noted: Colace, Remeron, Protonix Skin: Deep Tissue pressure ulcer-thigh Additional Notes: Patient extubated today on full liquids at this time. Will continue to monitor for diet order advancement and tolerance. Monitoring diet advancement, weights, labs, skin, plan of care Follow up every 3 days.
--- NOTE | 2024-11-02 15:28 | P.PNIM_ITS ---
Progress Note: A&P Assessment and Plan (1) Cholelithiasis with choledocholithiasis: Code(s): K80.70 - Calculus of gallbladder and bile duct without cholecystitis without obstruction Status: Acute Assessment and Plan: Patient patient with choledocholithiasis and cholecystitis -10/29: Status post: Attempted laparoscopic cholecystectomy, open cholecystectomy with intraoperative cholangiogram, control hepatic vein hemorrhage -EBL 1000 ml General surgery following. Removed NG tube and started on full liquid diet. Management deferred to General surgery (2) Septic shock: Code(s): A41.9 - Sepsis, unspecified organism; R65.21 - Severe sepsis with septic shock Status: Acute Assessment and Plan: Septic shock resolved with IV fluids and now patient is off of vasopressors. Discontinue stress dose steroids -continue Zosyn (10/29) Lactic acid has normalized (3) Acute respiratory failure: Code(s): J96.00 - Acute respiratory failure, unspecified whether with hypoxia or hypercapnia Status: Acute Assessment and Plan: Postoperative acute respiratory failure, patient was intubated during the procedure and remained intubated and transferred to the ICU for further management Extubated 11/01. Patient was also given Lasix Now on room air Continue incentive spirometry (4) Postoperative anemia due to acute blood loss: Code(s): D62 - Acute posthemorrhagic anemia Status: Acute Assessment and Plan: Intraoperative hemorrhage with approximately 1000 mL in blood loss -status post 4 units of packed RBCs, 2 units of FFP and 1 unit of cryoprecipitate -continue to monitor CBC -10/30: transfused 1 unit of packed RBCs -hemoglobin stable. Monitor (5) Elevated LFTs: Code(s): R79.89 - Other specified abnormal findings of blood chemistry Status: Acute Assessment and Plan: Elevated LFTs likely related to hypotension and shock liver -LFTs trending down, will continue to monitor (6) Thrombocytopenia: Code(s): D69.6 - Thrombocytopenia, unspecified Status: Acute Assessment and Plan: Postoperative thrombocytopenia likely related to consumption -could also be related to septic shock and decreased marrow production -10/31: Patient was transferred 1 unit platelets Count improving. Monitor Plan DVT prophylaxis: SCDs, Lovenox Stress ulcer prophylaxis: Protonix IV q.12 hours Nutrition: Surgery plans to remove Dobbhoff tube and start full liquid diet. Code Status: Do not resuscitate Subjective Date/time seen: 11/02/24 15:28 Interval history: Patient getting transferred out of the ICU. Denies any complaints. Tolerating diet. Review of Systems Review of Systems: All systems reviewed & are unremarkable except as noted in HPI and below (HPI) Exam Narrative: General: Alert awake and in in no acute distress HEENT:? Pupils equal reactive, sclerae is clear, Neck:? Supple Respiratory:? Coarse breath sounds bilaterally, decreased at bases, no rales or wheezing noted, adequate air entry Cardiac:? S1-S2 is normal regular rate and rhythm Abdomen:? Soft, tender to palpation in right upper quad, hypoactive bowel sounds, nondistended. HUMAIRA drain in place with minimal sanguinous output Extremities:? Bilateral lower extremities are contracted, bilateral lower extremity and pedal edema, palpable pedal pulses Neuro:? AO x 3 follows commands the extremities Skin:? No skin lesions noted, right upper quadrant incision which is covered under dressing, clean dry and intact Objective Data Vital Signs Vital Signs: Vital Signs - 24 hr 11/01/24 16:00 11/01/24 16:00 11/01/24 16:00 Temperature 97.8 F Pulse Rate 71 71 71 Respiratory Rate 18 18 Blood Pressure 135/65 Pulse Oximetry 97 98 Oxygen Delivery Room Air 11/01/24 18:00 11/01/24 18:00 11/01/24 20:00 Temperature 97.6 F Pulse Rate 77 77 Respiratory Rate 16 Blood Pressure 132/57 L Pulse Oximetry 98 96 Oxygen Delivery Room Air 11/01/24 20:00 11/01/24 20:00 11/01/24 22:00 Temperature 98.4 F Pulse Rate 61 63 53 L Respiratory Rate 16 Blood Pressure 140/61 Pulse Oximetry 95 Oxygen Delivery 11/01/24 22:00 11/02/24 00:00 11/02/24 00:00 Temperature 98.1 F Pulse Rate 53 L 63 59 L Respiratory Rate 16 16 Blood Pressure 148/70 H 137/60 Pulse Oximetry 96 95 Oxygen Delivery 11/02/24 00:00 11/02/24 02:00 11/02/24 02:00 Temperature Pulse Rate 71 71 Respiratory Rate 12 Blood Pressure 133/84 Pulse Oximetry 93 Oxygen Delivery Room Air 11/02/24 04:00 11/02/24 04:00 11/02/24 04:00 Temperature 98.4 F Pulse Rate 60 63 Respiratory Rate 16 Blood Pressure 135/60 Pulse Oximetry 95 95 Oxygen Delivery Room Air 11/02/24 06:00 11/02/24 06:00 11/02/24 08:00 Temperature 98.6 F Pulse Rate 63 63 86 Respiratory Rate 17 19 Blood Pressure 143/66 H 151/88 H Pulse Oximetry 94 93 Oxygen Delivery 11/02/24 08:00 11/02/24 10:00 11/02/24 12:00 Temperature Pulse Rate 83 105 H 110 H Respiratory Rate Blood Pressure Pulse Oximetry Oxygen Delivery 11/02/24 12:00 11/02/24 14:00 Temperature 98.6 F Pulse Rate 117 H 112 H Respiratory Rate 21 H Blood Pressure 128/88 Pulse Oximetry 97 Oxygen Delivery Intake/Output Intake/Output: Intake & Output 10/30/24 10/31/24 11/01/24 11/02/24 23:59 23:59 23:59 23:59 Intake Total 6289.3 2251.1 1591.9 2745.5 Output Total 975 1740 2475 1325 Balance 5314.3 511.1 -883.1 1420.5 Meds/Results Medications: Active Medications Generic Name Dose Route Start Last Admin Trade Name Freq PRN Reason Stop Dose Admin Acetaminophen 1,000 mg 10/25/24 08:02 Acetaminophen 500 Mg Tablet PO Q6H PRN Pain 1-3 or fever Docusate Sodium 100 mg 10/25/24 09:00 10/29/24 18:29 Docusate Sodium 100 Mg Capsule PO Not Given BID [facility] Enoxaparin Sodium 40 mg 11/02/24 09:00 11/02/24 09:23 Enoxaparin 40 Mg/0.4 Ml Syringe SUB-Q 40 mg DAILY [facility] Administration Fentanyl Citrate 12.5 mcg 10/29/24 19:12 Fentanyl Citrate Inj (*Crx) 100 Mcg/2 Ml Vial IV PUSH Q2H PRN Breakthrough Pain Rated 4-6 or NPO Fentanyl Citrate 25 mcg 10/29/24 19:12 Fentanyl Citrate Inj (*Crx) 100 Mcg/2 Ml Vial IV PUSH Q2H PRN Breakthrough Pain Rated 7-10 or NPO Hydroxyzine Pamoate 25 mg 10/25/24 17:00 10/29/24 18:29 Hydroxyzine Pamoate 25 Mg Capsule PO Not Given BID [facility] Levetiracetam 750 mg/ Dextrose 107.5 mls @ 430 mls/hr 10/28/24 21:00 11/02/24 09:15 IVPB Infused Q12H [facility] Infusion Midazolam HCl 100 mg in 100 mls @ 0 mls/hr 10/29/24 19:10 10/31/24 17:45 Versed 100 Mg/Ns 100 Ml IV CONT 0 mg/hr .Q0M SONIA 0 mls/hr Titration Protocol Piperacillin/Tazobactam/Dextrose 3.375 gm in 50 mls @ 100 mls/hr 10/29/24 21:00 11/02/24 14:27 Zosyn 3.375 Gm/Ns 50 Ml IVPB 100 mls/hr Q6H [facility] Administration Irbesartan 75 mg 11/01/24 09:26 11/02/24 08:59 Irbesartan 75 Mg Tablet PO 75 mg DAILY [facility] Administration Lactobacillus Acidophilus 1 tablet 10/25/24 09:00 10/29/24 08:47 Acidophilus/Bulgaricus Chewable Tablet PO Not Given DAILY [facility] Magnesium Oxide 400 mg 10/25/24 09:00 10/29/24 08:47 Magnesium Oxide 400 Mg Tablet PO Not Given DAILY [facility] Mirtazapine 15 mg 10/25/24 21:00 10/29/24 23:40 Mirtazapine 15 Mg Tablet PO 15 mg HS [facility] Administration Montelukast Sodium 10 mg 10/25/24 21:00 10/29/24 23:40 Montelukast Sodium 10 Mg Tablet PO 10 mg HS [facility] Administration Multivitamins/Calcium 1 tablet 10/25/24 09:00 10/29/24 08:47 Therapeutic Multivitamins/Minerals Tab (*Bkc) PO Not Given DAILY [facility] Ondansetron HCl 4 mg 10/29/24 14:00 Ondansetron Inj 4 Mg/2 Ml Vial IV PUSH ONCE PRN Nausea Oxycodone HCl 5 mg 10/25/24 08:02 Oxycodone Hcl (*Crx) 5 Mg Tab Ir PO Q4H PRN Pain Rated 7-10 Pantoprazole Sodium 40 mg 10/30/24 09:00 11/02/24 09:00 Pantoprazole Sodium Iv 40 Mg Vial IV PUSH 40 mg Q12HR [facility] Administration Perflutren Lipid Microsphere 0 ml 10/31/24 07:33 Perflutren Lipid Microspheres 1.5 Ml Vial Diluted To 10 Ml Total Volume IV PU SH 11/03/24 07:33 ONCE PRN adequate visualization Protocol Potassium Chloride 10 meq 10/25/24 09:00 10/29/24 18:29 Potassium Chloride 10 Meq Er Tablet PO Not Given BID [facility] Simvastatin 20 mg 10/25/24 21:00 10/29/24 23:41 Simvastatin 20 Mg Tablet PO 20 mg HS [facility] Administration Sodium Chloride 10 ml 10/29/24 22:00 11/02/24 14:37 Central Line Flush IV PUSH 10 ml Q8HR [facility] Administration Sodium Chloride 20 ml 10/29/24 19:51 Central Line Flush IV PUSH PRN PRN after blood draws Sucralfate 1 gm 10/25/24 16:30 10/30/24 05:15 Sucralfate 1 Gm Tablet PO Not Given BIDAC [facility] Vitamin D 4,000 units 10/25/24 09:00 10/29/24 08:47 Cholecalciferol 1,000 Units Tablet PO Not Given DAILY [facility] Radiology Results: ITS Impressions Abdomen/Pelvis CT 10/24/24 19:41 IMPRESSION: 1. No evidence of appendicitis, diverticulitis or intestinal obstruction. 2. Highly suggestive of abscess in the right pararectal area. 3. Markedly thickened rectal wall with distended colon by gases. Further evaluation of the rectum is advised. 4. Hypodensities in both kidneys which may indicate pyelonephritis. Dilated ureters are also noted. 5. Thickened wall of the urinary bladder which may indicate cystitis versus infiltrative process. Further evaluation advised. 6. Intrahepatic and extrahepatic biliary dilatation. 7. Cholelithiasis. 8. Hepatomegaly. Enema w/Water Soluble 10/25/24 14:02 IMPRESSION: 1. Moderate amount of scattered colonic stool suggestive of constipation with no evident strictures/obstruction. MRCP 10/27/24 14:28 IMPRESSION: 1. Mild intra and extra hepatic biliary ductal dilation with both cholelithiasis and choledocholithiasis which does not appear currently obstructing. 2. Very small bilateral posterior layering pleural effusions. 3. Mild bilateral hydronephrosis. Cholangiogram,Operative 10/29/24 17:33 IMPRESSION: 1. Contrast injection delineates slowly mobile nonobstructing material within the dilated common hepatic and bile ducts the appearance of which favors sludge over very small gallstones. Chest X-Ray 11/01/24 08:21 IMPRESSION: 1. Left basilar opacities which could represent atelectasis or pneumonia. 2. Lines and tubes in expected position. Labs Labs: Laboratory Results - last 24 hr 11/01/24 11/02/24 11/02/24 23:46 05:06 05:06 WBC 8.6 RBC 2.73 L Hgb 7.9 L Hct 25.5 L MCV 93.4 MCH 28.9 MCHC 31.0 L RDW 16.1 H Plt Count 109 L MPV 11.4 H Immature Gran % (Auto) 2.2 H Neut % (Auto) 82.0 H Lymph % (Auto) 8.1 L Coles % (Auto) 7.2 Eos % (Auto) 0.4 Baso % (Auto) 0.1 L Lymph # (Auto) 0.69 L Coles # (Auto) 0.6 Eos # (Auto) 0.0 Baso # (Auto) 0.0 Abs Immat Gran (auto) 0.19 H Absolute Neuts (auto) 7.0 H Absolute Nucleated RBC 0.030 H Nucleated RBC % 0.4 H % Immature Plt Fraction 7.4 Sodium 136 L Potassium 2.9 L 2.9 L Chloride 104 Carbon Dioxide 25 Anion Gap 7 BUN 18 H Creatinine 0.99 Estim Creat Clear Calc 43 Estimated GFR 56 L Glucose 80 POC Capillary Glucose 102 Calcium 7.9 L Phosphorus 2.9 Magnesium 1.8 Total Bilirubin 1.0 AST 79 H ALT 111 H Alkaline Phosphatase 61 Total Protein 5.0 L Albumin 2.5 L 11/02/24 11/02/24 05:09 11:17 WBC RBC Hgb Hct MCV MCH MCHC RDW Plt Count MPV Immature Gran % (Auto) Neut % (Auto) Lymph % (Auto) Coles % (Auto) Eos % (Auto) Baso % (Auto) Lymph # (Auto) Coles # (Auto) Eos # (Auto) Baso # (Auto) Abs Immat Gran (auto) Absolute Neuts (auto) Absolute Nucleated RBC Nucleated RBC % % Immature Plt Fraction Sodium Potassium Chloride Carbon Dioxide Anion Gap BUN Creatinine Estim Creat Clear Calc Estimated GFR Glucose POC Capillary Glucose 92 152 H Calcium Phosphorus Magnesium Total Bilirubin AST ALT Alkaline Phosphatase Total Protein Albumin
[2024-11-02 17:39] LABS: Glucose Point of Care 105 mg/dl (65-105)
[2024-11-03] VITALS (11 sets, daily range): BP systolic 115–150; BP diastolic 75–88; PULSE 49–102; RESP 17–30; TEMP 36.4–36.8; O2SAT 96–99
[2024-11-03] MEDS: PIPERACILLN/TAZ 3.375GM/NS50ML 3.375 GM/50 ML BAG IVPB ×4 (02:36→21:03)
[2024-11-03 04:39] LABS: Hematocrit 25.2 % (37.0-47.0); Hemoglobin 7.9 g/dL (12.0-15.0); Mean Corpuscular HGB Conc 31.3 g/dl (32-36); Mean Corpuscular Hemoglobin 29.6 pg (26-34); Mean Corpuscular Volume 94.4 fl (80-100); Mean Platelet Volume 10.4 fl (7.4-10.4); Platelet Count Result 110 k/mm3 (150-375); Red Blood Count 2.67 M/mm3 (4.2-5.4); Red Cell Distribution Width 16.3 % (11.5-14.5); White Blood Count 6.7 K/mm3 (4.5-10.0)
[2024-11-03 04:49] LABS: Alanine Aminotransferase 69 U/L (6-35); Albumin Level 2.5 g/dL (3.5-5.1); Alkaline Phosphatase 58 U/L (38-126); Anion Gap 2 mmol/L (4-12); Aspartate Amino Transferase 49 U/L (14-36); Bilirubin,Total 1.5 mg/dL (0.2-1.3); Blood Urea Nitrogen 15 mg/dL (7-17); Calcium 7.8 mg/dL (8.4-10.2); Carbon Dioxide 27 mmol/L (22-30); Chloride 106 mmol/L (98-107); Estimated CRCL calculation 44 ml/min; Estimated Glomerular Filt Rate 59; Glucose 72 mg/dL (65-110); Magnesium 1.6 mg/dL (1.6-2.3); Phosphorus 2.4 mg/dL (2.5-4.5); Potassium 3.9 mmol/L (3.4-5.0); Sodium 135 mmol/L (137-145)
[2024-11-03] MEDS: CENTRAL LINE FLUSH 10 ML IV PUSH ×2 (05:10→14:01)
--- NOTE | 2024-11-03 07:13 | PM.PNGS ---
Progress Note: A&P Assessment and Plan (1) Chronic cholecystitis due to cholelithiasis with choledocholithiasis: Code(s): K80.64 - Calculus of gallbladder and bile duct with chronic cholecystitis without obstruction Status: Acute Assessment and Plan: Tolerated full liquids well. Wounds look good. Will discontinue HUMAIRA drain. Okay to transfer to IMU or [facility] floor today if Dr. Watts and hospitalist agree. (2) Acute respiratory failure: Code(s): J96.00 - Acute respiratory failure, unspecified whether with hypoxia or hypercapnia Status: Acute Assessment and Plan: Doing well now 2 days after extubation. (3) Postoperative anemia due to acute blood loss: Code(s): D62 - Acute posthemorrhagic anemia Status: Acute Assessment and Plan: H&H stable from yesterday, still anemic (4) Chronic indwelling White catheter: Code(s): Z97.8 - Presence of other specified devices Status: Chronic (5) Postoperative hemorrhagic shock: Qualifiers: Encounter type: subsequent encounter Qualified Code(s): T81.19XD - Other postprocedural shock, subsequent encounter Code(s): T81.19XA - Other postprocedural shock, initial encounter Status: Acute Assessment and Plan: Essentially resolved. Okay to transfer out of ICU when Dr. Watts agrees. H&H is stable, urine output is good. Off all vasopressors. Subjective Subjective Date/Time Seen: 11/03/24 07:13 Post Op day: 5 Patient reports: no new complaints, feels better, pain is less, tolerating liquids well, bowel movement and afebrile Exam Const: General: cooperative, comfortable, alert and awake GI: Inspection: non-distended, incision (Looks great, dry, no drainage, no erythema), scaphoid and other (HUMAIRA drain mostly serous with blood tinge) GI Palp: Yes Soft to palpation and Yes Tenderness to palpation present (GI) (Slight but appropriate tenderness at incision) Objective Data Vital Signs Vital Signs: Vital Signs - 24 hr 11/02/24 08:00 11/02/24 08:00 11/02/24 10:00 Temperature 37.0 C Pulse Rate 86 83 105 H Respiratory Rate 19 Blood Pressure 151/88 H Pulse Oximetry 93 Oxygen Delivery 11/02/24 12:00 11/02/24 12:00 11/02/24 14:00 Temperature 37.0 C Pulse Rate 110 H 117 H 112 H Respiratory Rate 21 H Blood Pressure 128/88 Pulse Oximetry 97 Oxygen Delivery 11/02/24 16:00 11/02/24 16:00 11/02/24 18:00 Temperature 37.0 C Pulse Rate 107 H 111 H 94 Respiratory Rate 21 H Blood Pressure 143/83 H Pulse Oximetry 97 Oxygen Delivery 11/02/24 20:00 11/02/24 20:00 11/02/24 20:00 Temperature 36.8 C Pulse Rate 89 88 Respiratory Rate 27 H Blood Pressure 152/78 H Pulse Oximetry 98 Oxygen Delivery Room Air 11/02/24 22:00 11/03/24 00:00 11/03/24 00:00 Temperature 36.7 C Pulse Rate 86 94 Respiratory Rate 30 H Blood Pressure 115/88 Pulse Oximetry 97 Oxygen Delivery Room Air 11/03/24 00:00 11/03/24 02:00 11/03/24 04:00 Temperature Pulse Rate 94 88 Respiratory Rate Blood Pressure Pulse Oximetry Oxygen Delivery Room Air 11/03/24 04:00 11/03/24 04:00 11/03/24 06:00 Temperature 36.8 C Pulse Rate 88 87 49 L Respiratory Rate 27 H Blood Pressure 142/79 H Pulse Oximetry 96 Oxygen Delivery Intake/Output Intake/Output: Intake & Output 10/31/24 11/01/24 11/02/24 11/03/24 23:59 23:59 23:59 23:59 Intake Total 2251.1 1591.9 3551.0 450 Output Total 1740 2475 1325 860 Balance 511.1 -883.1 2226.0 -410 Meds/Results Medications: Active Medications Generic Name Dose Route Start Last Admin Trade Name Freq PRN Reason Stop Dose Admin Acetaminophen 1,000 mg 10/25/24 08:02 Acetaminophen 500 Mg Tablet PO Q6H PRN Pain 1-3 or fever Docusate Sodium 100 mg 10/25/24 09:00 10/29/24 18:29 Docusate Sodium 100 Mg Capsule PO Not Given BID [facility] Enoxaparin Sodium 40 mg 11/02/24 09:00 11/02/24 09:23 Enoxaparin 40 Mg/0.4 Ml Syringe SUB-Q 40 mg DAILY [facility] Administration Fentanyl Citrate 12.5 mcg 10/29/24 19:12 Fentanyl Citrate Inj (*Crx) 100 Mcg/2 Ml Vial IV PUSH Q2H PRN Breakthrough Pain Rated 4-6 or NPO Fentanyl Citrate 25 mcg 10/29/24 19:12 Fentanyl Citrate Inj (*Crx) 100 Mcg/2 Ml Vial IV PUSH Q2H PRN Breakthrough Pain Rated 7-10 or NPO Hydroxyzine Pamoate 25 mg 10/25/24 17:00 10/29/24 18:29 Hydroxyzine Pamoate 25 Mg Capsule PO Not Given BID [facility] Levetiracetam 750 mg/ Dextrose 107.5 mls @ 430 mls/hr 10/28/24 21:00 11/02/24 21:25 IVPB Infused Q12H [facility] Infusion Midazolam HCl 100 mg in 100 mls @ 0 mls/hr 10/29/24 19:10 10/31/24 17:45 Versed 100 Mg/Ns 100 Ml IV CONT 0 mg/hr .Q0M SONIA 0 mls/hr Titration Protocol Piperacillin/Tazobactam/Dextrose 3.375 gm in 50 mls @ 100 mls/hr 10/29/24 21:00 11/03/24 03:06 Zosyn 3.375 Gm/Ns 50 Ml IVPB Infused Q6H [facility] Infusion Irbesartan 75 mg 11/01/24 09:26 11/02/24 08:59 Irbesartan 75 Mg Tablet PO 75 mg DAILY [facility] Administration Lactobacillus Acidophilus 1 tablet 10/25/24 09:00 10/29/24 08:47 Acidophilus/Bulgaricus Chewable Tablet PO Not Given DAILY [facility] Magnesium Oxide 400 mg 10/25/24 09:00 10/29/24 08:47 Magnesium Oxide 400 Mg Tablet PO Not Given DAILY [facility] Mirtazapine 15 mg 10/25/24 21:00 10/29/24 23:40 Mirtazapine 15 Mg Tablet PO 15 mg HS [facility] Administration Montelukast Sodium 10 mg 10/25/24 21:00 10/29/24 23:40 Montelukast Sodium 10 Mg Tablet PO 10 mg HS [facility] Administration Multivitamins/Calcium 1 tablet 10/25/24 09:00 10/29/24 08:47 Therapeutic Multivitamins/Minerals Tab (*Bkc) PO Not Given DAILY [facility] Ondansetron HCl 4 mg 10/29/24 14:00 Ondansetron Inj 4 Mg/2 Ml Vial IV PUSH ONCE PRN Nausea Oxycodone HCl 5 mg 10/25/24 08:02 Oxycodone Hcl (*Crx) 5 Mg Tab Ir PO Q4H PRN Pain Rated 7-10 Pantoprazole Sodium 40 mg 10/30/24 09:00 11/02/24 21:11 Pantoprazole Sodium Iv 40 Mg Vial IV PUSH 40 mg Q12HR [facility] Administration Perflutren Lipid Microsphere 0 ml 10/31/24 07:33 Perflutren Lipid Microspheres 1.5 Ml Vial Diluted To 10 Ml Total Volume IV PUSH 11/03/24 07:33 ONCE PRN adequate visualization Protocol Potassium Chloride 10 meq 10/25/24 09:00 10/29/24 18:29 Potassium Chloride 10 Meq Er Tablet PO Not Given BID [facility] Simvastatin 20 mg 10/25/24 21:00 10/29/24 23:41 Simvastatin 20 Mg Tablet PO 20 mg HS [facility]ON[facility] Administration Sodium Chloride 10 ml 10/29/24 22:00 11/03/24 05:10 Central Line Flush IV PUSH 10 ml Q8HR [facility] Administration Sodium Chloride 20 ml 10/29/24 19:51 Central Line Flush IV PUSH PRN PRN after blood draws Sucralfate 1 gm 10/25/24 16:30 10/30/24 05:15 Sucralfate 1 Gm Tablet PO Not Given BIDAC [facility] Vitamin D 4,000 units 10/25/24 09:00 10/29/24 08:47 Cholecalciferol 1,000 Units Tablet PO Not Given DAILY [facility] Radiology Results: ITS Impressions Abdomen/Pelvis CT 10/24/24 19:41 IMPRESSION: 1. No evidence of appendicitis, diverticulitis or intestinal obstruction. 2. Highly suggestive of abscess in the right pararectal area. 3. Markedly thickened rectal wall with distended colon by gases. Further evaluation of the rectum is advised. 4. Hypodensities in both kidneys which may indicate pyelonephritis. Dilated ureters are also noted. 5. Thickened wall of the urinary bladder which may indicate cystitis versus infiltrative process. Further evaluation advised. 6. Intrahepatic and extrahepatic biliary dilatation. 7. Cholelithiasis. 8. Hepatomegaly. Enema w/Water Soluble 10/25/24 14:02 IMPRESSION: 1. Moderate amount of scattered colonic stool suggestive of constipation with no evident strictures/obstruction. MRCP 10/27/24 14:28 IMPRESSION: 1. Mild intra and extra hepatic biliary ductal dilation with both cholelithiasis and choledocholithiasis which does not appear currently obstructing. 2. Very small bilateral posterior layering pleural effusions. 3. Mild bilateral hydronephrosis. Cholangiogram,Operative 10/29/24 17:33 IMPRESSION: 1. Contrast injection delineates slowly mobile nonobstructing material within the dilated common hepatic and bile ducts the appearance of which favors sludge over very small gallstones. Chest X-Ray 11/01/24 08:21 IMPRESSION: 1. Left basilar opacities which could represent atelectasis or pneumonia. 2. Lines and tubes in expected position. Labs Labs: Laboratory Results - last 24 hr 11/02/24 11/02/24 11/03/24 11:17 17:32 04:27 WBC 6.7 RBC 2.67 L Hgb 7.9 L Hct 25.2 L MCV 94.4 MCH 29.6 MCHC 31.3 L RDW 16.3 H Plt Count 110 L MPV 10.4 Sodium 135 L Potassium 3.9 Chloride 106 Carbon Dioxide 27 Anion Gap 2 L BUN 15 Creatinine 0.95 Estim Creat Clear Calc 44 Estimated GFR 59 Glucose 72 POC Capillary Glucose 152 H 105 Calcium 7.8 L Phosphorus 2.4 L Magnesium 1.6 Total Bilirubin 1.5 H AST 49 H ALT 69 H Alkaline Phosphatase 58 Total Protein 5.0 L Albumin 2.5 L
--- NOTE | 2024-11-03 08:11 | P.PNINT_ITS ---
Progress Note: A&P Assessment and Plan (1) Cholelithiasis with choledocholithiasis: Code(s): K80.70 - Calculus of gallbladder and bile duct without cholecystitis without obstruction Status: Acute Assessment and Plan: Patient patient with choledocholithiasis and cholecystitis -10/29: Status post: Attempted laparoscopic cholecystectomy, open cholecystectomy with intraoperative cholangiogram, control hepatic vein hemorrhage -EBL 1000 ml Surgery planning to advance diet to low fiber diet today Management deferred to General surgery (2) Septic shock: Code(s): A41.9 - Sepsis, unspecified organism; R65.21 - Severe sepsis with septic shock Status: Acute Assessment and Plan: Septic shock resolved with IV fluids and now patient is off of vasopressors. Discontinue stress dose steroids -continue Zosyn (10/29) -lactic acid has normalized -DC central line today (3) Acute respiratory failure: Code(s): J96.00 - Acute respiratory failure, unspecified whether with hypoxia or hypercapnia Status: Acute Assessment and Plan: Postoperative acute respiratory failure, patient was intubated during the procedure and remained intubated and transferred to the ICU for further manage Extubated 11/01. Patient was also given Lasix Now on room air Continue incentive spirometry Most recent Chest x-ray reviewed (4) Postoperative anemia due to acute blood loss: Code(s): D62 - Acute posthemorrhagic anemia Status: Acute Assessment and Plan: Intraoperative hemorrhage with approximately 1000 mL in blood loss -status post 4 units of packed RBCs, 2 units of FFP and 1 unit of cryoprecipitate -continue to monitor CBC -10/30: transfused 1 unit of packed RBCs -hemoglobin stable. Monitor (5) Elevated LFTs: Code(s): R79.89 - Other specified abnormal findings of blood chemistry Status: Acute Assessment and Plan: Elevated LFTs likely related to hypotension and shock liver -LFTs trending down, will continue to monitor (6) Thrombocytopenia: Code(s): D69.6 - Thrombocytopenia, unspecified Status: Acute Assessment and Plan: Postoperative thrombocytopenia likely related to consumption -could also be related to septic shock and decreased marrow production -10/31: Patient was transferred 1 unit platelets Count improving. Monitor Plan DVT prophylaxis: SCDs, Lovenox Stress ulcer prophylaxis: Protonix IV q.12 hours Nutrition: Low-fiber diet Code Status: [facility]ate [facility] Subjective Date/time seen: 11/03/24 No new complaints. Tolerated liquid diet. Stable vital signs. On room air. Dobbhoff tube has been removed. She denies any complaint. Patient denies fever, chest pain, shortness of breath, cough, nausea vomiting, abdominal pain,, diarrhea, headache or constipation. All other systems were reviewed and were negative 60 mL output from HUMAIRA drain. Patient had bowel movement overnight. Urine output acceptable. Review of Systems Review of Systems: All systems reviewed & are unremarkable except as noted in HPI and below (HPI) Exam Narrative: General: Alert awake and in in no acute distress HEENT:? Pupils equal reactive, sclerae is clear, Neck:? Supple Respiratory:? Coarse breath sounds bilaterally, decreased at bases, no rales or wheezing noted, adequate air entry Cardiac:? S1-S2 is normal regular rate and rhythm Abdomen:? Soft, tender to palpation in right upper quad, hypoactive bowel sounds, nondistended. HUMAIRA drain in place with minimal sanguinous output Extremities:? Bilateral lower extremities are contracted, bilateral lower extremity and pedal edema, palpable pedal pulses Neuro:? AO x 3 follows commands the extremities Skin:? No skin lesions noted, right upper quadrant incision which is covered under dressing, clean dry and intact Objective Data Vital Signs Vital Signs: Vital Signs - 24 hr 11/02/24 10:00 11/02/24 12:00 11/02/24 12:00 Temperature 37.0 C Pulse Rate 105 H 110 H 117 H Respiratory Rate 21 H Blood Pressure 128/88 Pulse Oximetry 97 Oxygen Delivery 11/02/24 14:00 11/02/24 16:00 11/02/24 16:00 Temperature 37.0 C Pulse Rate 112 H 107 H 111 H Respiratory Rate 21 H Blood Pressure 143/83 H Pulse Oximetry 97 Oxygen Delivery 11/02/24 18:00 11/02/24 20:00 11/02/24 20:00 Temperature Pulse Rate 94 89 Respiratory Rate Blood Pressure Pulse Oximetry Oxygen Delivery Room Air 11/02/24 20:00 11/02/24 22:00 11/03/24 00:00 Temperature 36.8 C Pulse Rate 88 86 Respiratory Rate 27 H Blood Pressure 152/78 H Pulse Oximetry 98 Oxygen Delivery Room Air 11/03/24 00:00 11/03/24 00:00 11/03/24 02:00 Temperature 36.7 C Pulse Rate 94 94 88 Respiratory Rate 30 H Blood Pressure 115/88 Pulse Oximetry 97 Oxygen Delivery 11/03/24 04:00 11/03/24 04:00 11/03/24 04:00 Temperature 36.8 C Pulse Rate 88 87 Respiratory Rate 27 H Blood Pressure 142/79 H Pulse Oximetry 96 Oxygen Delivery Room Air 11/03/24 06:00 Temperature Pulse Rate 49 L Respiratory Rate Blood Pressure Pulse Oximetry Oxygen Delivery Intake/Output Intake/Output: Intake & Output 10/31/24 11/01/24 11/02/24 11/03/24 23:59 23:59 23:59 23:59 Intake Total 2251.1 1591.9 3551.0 450 Output Total 1740 2475 1325 860 Balance 511.1 -883.1 2226.0 -410 Meds/Results Medications: Active Medications Generic Name Dose Route Start Last Admin Trade Name Freq PRN Reason Stop Dose Admin Acetaminophen 1,000 mg 10/25/24 08:02 Acetaminophen 500 Mg Tablet PO Q6H PRN Pain 1-3 or fever Hydrocodone Bitart/Acetaminophen 1 tab 11/03/24 07:47 Hydrocodone/Acetaminophen (*Crx) 5-325 Mg Tablet PO Q4H PRN Pain Rated 4-6 Docusate Sodium 100 mg 10/25/24 09:00 10/29/24 18:29 Docusate Sodium 100 Mg Capsule PO Not Given BID [facility] Enoxaparin Sodium 40 mg 11/02/24 09:00 11/02/24 09:23 Enoxaparin 40 Mg/0.4 Ml Syringe SUB-Q 40 mg DAILY [facility] Administration Fentanyl Citrate 12.5 mcg 10/29/24 19:12 Fentanyl Citrate Inj (*Crx) 100 Mcg/2 Ml Vial IV PUSH Q2H PRN Breakthrough Pain Rated 4-6 or NPO Fentanyl Citrate 25 mcg 10/29/24 19:12 Fentanyl Citrate Inj (*Crx) 100 Mcg/2 Ml Vial IV PUSH Q2H PRN Breakthrough Pain Rated 7-10 or NPO Hydroxyzine Pamoate 25 mg 10/25/24 17:00 10/29/24 18:29 Hydroxyzine Pamoate 25 Mg Capsule PO Not Given BID [facility] Piperacillin/Tazobactam/Dextrose 3.375 gm in 50 mls @ 100 mls/hr 10/29/24 21:00 11/03/24 03:06 Zosyn 3.375 Gm/Ns 50 Ml IVPB Infused Q6H [facility] Infusion Irbesartan 75 mg 11/01/24 09:26 11/02/24 08:59 Irbesartan 75 Mg Tablet PO 75 mg DAILY [facility] Administration Lactobacillus Acidophilus 1 tablet 10/25/24 09:00 10/29/24 08:47 Acidophilus/Bulgaricus Chewable Tablet PO Not Given DAILY [facility] Levetiracetam 250 mg/ 750 mg 11/03/24 09:00 Levetiracetam 500 mg PO Q12HR [facility] Magnesium Oxide 400 mg 10/25/24 09:00 10/29/24 08:47 Magnesium Oxide 400 Mg Tablet PO Not Given DAILY [facility] Mirtazapine 15 mg 10/25/24 21:00 10/29/24 23:40 Mirtazapine 15 Mg Tablet PO 15 mg HS [facility] Administration Montelukast Sodium 10 mg 10/25/24 21:00 10/29/24 23:40 Montelukast Sodium 10 Mg Tablet PO 10 mg HS [facility] Administration Multivitamins/Calcium 1 tablet 10/25/24 09:00 10/29/24 08:47 Therapeutic Multivitamins/Minerals Tab (*Bkc) PO Not Given DAILY [facility] Ondansetron HCl 4 mg 10/29/24 14:00 Ondansetron Inj 4 Mg/2 Ml Vial IV PUSH ONCE PRN Nausea Oxycodone HCl 5 mg 10/25/24 08:02 Oxycodone Hcl (*Crx) 5 Mg Tab Ir PO Q4H PRN Pain Rated 7-10 Simvastatin 20 mg 10/25/24 21:00 10/29/24 23:41 Simvastatin 20 Mg Tablet PO 20 mg HS [facility] Administration Sodium Chloride 10 ml 10/29/24 22:00 11/03/24 05:10 Central Line Flush IV PUSH 10 ml Q8HR [facility] Administration Sodium Chloride 20 ml 10/29/24 19:51 Central Line Flush IV PUSH PRN PRN after blood draws Sucralfate 1 gm 10/25/24 16:30 10/30/24 05:15 Sucralfate 1 Gm Tablet PO Not Given BIDAC [facility] Vitamin D 4,000 units 10/25/24 09:00 10/29/24 08:47 Cholecalciferol 1,000 Units Tablet PO Not Given DAILY [facility] Radiology Results: ITS Impressions Abdomen/Pelvis CT 10/24/24 19:41 IMPRESSION: 1. No evidence of appendicitis, diverticulitis or intestinal obstruction. 2. Highly suggestive of abscess in the right pararectal area. 3. Markedly thickened rectal wall with distended colon by gases. Further evaluation of the rectum is advised. 4. Hypodensities in both kidneys which may indicate pyelonephritis. Dilated u reters are also noted. 5. Thickened wall of the urinary bladder which may indicate cystitis versus infiltrative process. Further evaluation advised. 6. Intrahepatic and extrahepatic biliary dilatation. 7. Cholelithiasis. 8. Hepatomegaly. Enema w/Water Soluble 10/25/24 14:02 IMPRESSION: 1. Moderate amount of scattered colonic stool suggestive of constipation with no evident strictures/obstruction. MRCP 10/27/24 14:28 IMPRESSION: 1. Mild intra and extra hepatic biliary ductal dilation with both cholelithiasis and choledocholithiasis which does not appear currently obstructing. 2. Very small bilateral posterior layering pleural effusions. 3. Mild bilateral hydronephrosis. Cholangiogram,Operative 10/29/24 17:33 IMPRESSION: 1. Contrast injection delineates slowly mobile nonobstructing material within the dilated common hepatic and bile ducts the appearance of which favors sludge over very small gallstones. Chest X-Ray 11/01/24 08:21 IMPRESSION: 1. Left basilar opacities which could represent atelectasis or pneumonia. 2. Lines and tubes in expected position. Labs Labs: Laboratory Results - last 24 hr 11/02/24 11/02/24 11/03/24 11:17 17:32 04:27 WBC 6.7 RBC 2.67 L Hgb 7.9 L Hct 25.2 L MCV 94.4 MCH 29.6 MCHC 31.3 L RDW 16.3 H Plt Count 110 L MPV 10.4 Sodium 135 L Potassium 3.9 Chloride 106 Carbon Dioxide 27 Anion Gap 2 L BUN 15 Creatinine 0.95 Estim Creat Clear Calc 44 Estimated GFR 59 Glucose 72 POC Capillary Glucose 152 H 105 Calcium 7.8 L Phosphorus 2.4 L Magnesium 1.6 Total Bilirubin 1.5 H AST 49 H ALT 69 H Alkaline Phosphatase 58 Total Protein 5.0 L Albumin 2.5 L Quality VTE Prophylaxis VTE prophylaxis: mechanical ordered and pharmacologic ordered
[2024-11-03] MEDS: IRBESARTAN 75 MG TABLET PO (08:36)
[2024-11-03] MEDS: HYDROcodone/acetaminophen (*CRX) 5-325 MG TABLET 1 TAB PO ×4 (08:36→21:02)
[2024-11-03] MEDS: levETIRAcetam Tablet 250 MG, levETIRAcetam Tablet 500 MG 750 MG PO ×2 (08:37→21:02)
[2024-11-03] MEDS: ENOXAPARIN 40 MG/0.4 ML SYRINGE SUB-Q (08:53)
[2024-11-03] MEDS: POTASSIUM/PHOSPHORUS/SODIUM 1.5 GM PACKET 1 PACKET PO (08:54)
--- NOTE | 2024-11-03 11:10 | PCFNICU ---
ICU Rounding Note: Pt current nutrition is Low Fiber. Nutrition recommendation: Darrell BID Last recorded weight is 69.2 kg, up from 64 kg on admit. Bowel Motility: Last reported BM 11/03 Labs Reviewed: PO4 2.4, Glu 135, Hct 25.2, Hgb 7.9 Meds Noted: Colace, Remeron, Protonix, MVI Skin: Deep Tissue Pressure ulcer-thigh Additional Notes: Patient is tolerating Low Fiber diet. MD orders for Darrell BID for wound healing today. Agree with diet orders. Monitoring tube feeding tolerance, diet advancement, weights, labs, skin, plan of care eery 5 days.
[2024-11-03] MEDS: SUCRALFATE 1 GM TABLET PO (16:19)
--- NOTE | 2024-11-03 16:30 | PC.NURSE ---
Received from ICU/03 via bed.
--- NOTE | 2024-11-03 16:38 | PC.NURSE ---
This patient, Patsy Hugo, was transferred to [[id number] ] on 11/03/24 at 1625. Personal belongings sent with patient. Report given to [ERIN ]. Appropriate documentation sent with patient.
[2024-11-03] MEDS: DOCUSATE SODIUM 100 MG CAPSULE PO (16:41)
--- NOTE | 2024-11-03 19:03 | P.PNIM_ITS ---
Progress Note: A&P Assessment and Plan (1) Cholelithiasis with choledocholithiasis: Code(s): K80.70 - Calculus of gallbladder and bile duct without cholecystitis without obstruction Status: Acute Assessment and Plan: Patient patient with choledocholithiasis and cholecystitis -10/29: Status post: Attempted laparoscopic cholecystectomy, open cholecystectomy with intraoperative cholangiogram, control hepatic vein hemorrhage -EBL 1000 ml Surgery planning to advance diet to low fiber diet today Management deferred to General surgery (2) Septic shock: Code(s): A41.9 - Sepsis, unspecified organism; R65.21 - Severe sepsis with septic shock Status: Acute Assessment and Plan: Septic shock resolved with IV fluids and now patient is off of vasopressors. Discontinue stress dose steroids -continue Zosyn (10/29) -lactic acid has normalized -DC central line today (3) Acute respiratory failure: Code(s): J96.00 - Acute respiratory failure, unspecified whether with hypoxia or hypercapnia Status: Acute Assessment and Plan: Postoperative acute respiratory failure, patient was intubated during the procedure and remained intubated and transferred to the ICU for further manage Extubated 11/01. Patient was also given Lasix Now on room air Continue incentive spirometry Most recent Chest x-ray reviewed (4) Postoperative anemia due to acute blood loss: Code(s): D62 - Acute posthemorrhagic anemia Status: Acute Assessment and Plan: Intraoperative hemorrhage with approximately 1000 mL in blood loss -status post 4 units of packed RBCs, 2 units of FFP and 1 unit of cryoprecipitate -continue to monitor CBC -10/30: transfused 1 unit of packed RBCs -hemoglobin stable. Monitor (5) Elevated LFTs: Code(s): R79.89 - Other specified abnormal findings of blood chemistry Status: Acute Assessment and Plan: Elevated LFTs likely related to hypotension and shock liver -LFTs trending down, will continue to monitor (6) Thrombocytopenia: Code(s): D69.6 - Thrombocytopenia, unspecified Status: Acute Assessment and Plan: Postoperative thrombocytopenia likely related to consumption -could also be related to septic shock and decreased marrow production -10/31: Patient was transferred 1 unit platelets Count improving. Monitor Plan patient s/p attempted laparoscopic cholecystectomy, has open cholecystectomy, with intraoperative cholangiogram, control hepatic vein hemorrhage developed respiratory distress and was intubated and transferred to ICU. patient is now extubated, clinically improving and transferred out of ICU on [facility] [place], patient is seen by her surgeon and clinically doing well. DVT prophylaxis: SCDs, Lovenox Stress ulcer prophylaxis: Protonix IV q.12 hours Nutrition: Low-fiber diet Code Status: Do not resuscitate [facility] Subjective Date/time seen: 11/03/24 19:03 Interval history: Patient transferred out of the ICU. Denies any complaints. Tolerating diet. patient s/p attempted laparoscopic cholecystectomy, has open cholecystectomy, with intraoperative cholangiogram, control hepatic vein hemorrhage developed respiratory distress and was intubated and transferred to ICU. patient is now extubated, clinically improving and transferred out of ICU on [facility] [place], patient is seen by her surgeon and clinically doing well. Review of Systems Review of Systems: All systems reviewed & are unremarkable except as noted in HPI and below (HPI) Exam Narrative: Patient is comfortable, NAD HEENT: eyes are clear and none icteric LUNGS:CTA HEART: RR S1S2 ABD: BS+, Soft and nontender Lower extremities: no edema SKIN: nonjaundiced Neuro: grossly intact. Objective Data Vital Signs Vital Signs: Vital Signs - 24 hr 11/02/24 20:00 11/02/24 20:00 11/02/24 20:00 Temperature 36.8 C Pulse Rate 89 88 Respiratory Rate 27 H Blood Pressure 152/78 H Pulse Oximetry 98 Oxygen Delivery Room Air 11/02/24 22:00 11/03/24 00:00 11/03/24 00:00 Temperature 36.7 C Pulse Rate 86 94 Respiratory Rate 30 H Blood Pressure 115/88 Pulse Oximetry 97 Oxygen Delivery Room Air 11/03/24 00:00 11/03/24 02:00 11/03/24 04:00 Temperature Pulse Rate 94 88 Respiratory Rate Blood Pressure Pulse Oximetry Oxygen Delivery Room Air 11/03/24 04:00 11/03/24 04:00 11/03/24 06:00 Temperature 36.8 C Pulse Rate 88 87 49 L Respiratory Rate 27 H Blood Pressure 142/79 H Pulse Oximetry 96 Oxygen Delivery 11/03/24 08:00 11/03/24 08:00 11/03/24 08:00 Temperature 36.6 C Pulse Rate 91 93 Respiratory Rate 29 H Blood Pressure 126/83 Pulse Oximetry 98 Oxygen Delivery Room Air 11/03/24 12:00 11/03/24 16:00 11/03/24 16:30 Temperature Pulse Rate 102 H 96 Respiratory Rate 19 18 Blood Pressure 129/75 Pulse Oximetry 98 Oxygen Delivery Room Air Intake/Output Intake/Output: Intake & Output 10/31/24 11/01/24 11/02/24 11/03/24 23:59 23:59 23:59 23:59 Intake Total 2251.1 1591.9 3551.0 1190 Output Total 1740 2475 1325 2160 Balance 511.1 -883.1 2226.0 -970 Meds/Results Medications: Active Medications Generic Name Dose Route Start Last Admin Trade Name Freq PRN Reason Stop Dose Admin Acetaminophen 1,000 mg 10/25/24 08:02 Acetaminophen 500 Mg Tablet PO Q6H PRN Pain 1-3 or fever Hydrocodone Bitart/Acetaminophen 1 tab 11/03/24 07:47 11/03/24 16:18 Hydrocodone/Acetaminophen (*Crx) 5-325 Mg Tablet PO 1 tab Q4H PRN Administration Pain Rated 4-6 Docusate Sodium 100 mg 10/25/24 09:00 11/03/24 16:41 Docusate Sodium 100 Mg Capsule PO 100 mg BID [facility] Administration Enoxaparin Sodium 40 mg 11/02/24 09:00 11/03/24 08:53 Enoxaparin 40 Mg/0.4 Ml Syringe SUB-Q 40 mg DAILY [facility] Administration Fentanyl Citrate 12.5 mcg 10/29/24 19:12 Fentanyl Citrate Inj (*Crx) 100 Mcg/2 Ml Vial IV PUSH Q2H PRN Breakthrough Pain Rated 4-6 or NPO Fentanyl Citrate 25 mcg 10/29/24 19:12 Fentanyl Citrate Inj (*Crx) 100 Mcg/2 Ml Vial IV PUSH Q2H PRN Breakthrough Pain Rated 7-10 or NPO Hydroxyzine Pamoate 25 mg 10/25/24 17:00 10/29/24 18:29 Hydroxyzine Pamoate 25 Mg Capsule PO Not Given BID [facility] Piperacillin/Tazobactam/Dextrose 3.375 gm in 50 mls @ 100 mls/hr 10/29/24 21:00 11/03/24 16:39 Zosyn 3.375 Gm/Ns 50 Ml IVPB 11/03/24 23:59 Infused Q6H [facility] Infusion Irbesartan 75 mg 11/01/24 09:26 11/03/24 08:36 Irbesartan 75 Mg Tablet PO 75 mg DAILY [facility] Administration Lactobacillus Acidophilus 1 tablet 10/25/24 09:00 10/29/24 08:47 Acidophilus/Bulgaricus Chewable Tablet PO Not Given DAILY [facility] Levetiracetam 250 mg/ 750 mg 11/03/24 09:00 11/03/24 08:37 Levetiracetam 500 mg PO 750 mg Q12HR [facility] Administration Magnesium Oxide 400 mg 10/25/24 09:00 10/29/24 08:47 Magnesium Oxide 400 Mg Tablet PO Not Given DAILY [facility] Mirtazapine 15 mg 10/25/24 21:00 10/29/24 23:40 Mirtazapine 15 Mg Tablet PO 15 mg HS [facility] Administration Montelukast Sodium 10 mg 10/25/24 21:00 10/29/24 23:40 Montelukast Sodium 10 Mg Tablet PO 10 mg HS [facility] Administration Multivitamins/Calcium 1 tablet 10/25/24 09:00 10/29/24 08:47 Therapeutic Multivitamins/Minerals Tab (*Bkc) PO Not Given DAILY [facility] Ondansetron HCl 4 mg 10/29/24 14:00 Ondansetron Inj 4 Mg/2 Ml Vial IV PUSH ONCE PRN Nausea Oxycodone HCl 5 mg 10/25/24 08:02 Oxycodone Hcl (*Crx) 5 Mg Tab Ir PO Q4H PRN Pain Rated 7-10 Simvastatin 20 mg 10/25/24 21:00 10/29/24 23:41 Simvastatin 20 Mg Tablet PO 20 mg HS [facility] Administration Sodium Chloride 10 ml 10/29/24 22:00 11/03/24 14:01 Central Line Flush IV PUSH 10 ml Q8HR [facility] Administration Sodium Chloride 20 ml 10/29/24 19:51 Central Line Flush IV PUSH PRN PRN after blood draws Sucralfate 1 gm 10/25/24 16:30 11/03/24 16:19 Sucralfate 1 Gm Tablet PO 1 gm BIDAC [facility] Administration Vitamin D 4,000 units 10/25/24 09:00 10/29/24 08:47 Cholecalciferol 1,000 Units Tablet PO Not Given DAILY [facility] Radiology Results: ITS Impressions Abdomen/Pelvis CT 10/24/24 19:41 IMPRESSION: 1. No evidence of appendicitis, diverticulitis or intestinal obstruction. 2. Highly suggestive of abscess in the right pararectal area. 3. Markedly thickened rectal wall with distended colon by gases. Further evaluation of the rectum is advised. 4. Hypodensities in both kidneys which may indicate pyelonephritis. Dilated ureters are also noted. 5. Thickened wall of the urinary bladder which may indicate cystitis versus infiltrative process. Further evaluation advised. 6. Intrahepatic and extrahepatic biliary dilatation. 7. Cholelithiasis. 8. Hepatomegaly. Enema w/Water Soluble 10/25/24 14:02 IMPRESSION: 1. Moderate amount of scattered colonic stool suggestive of constipation with no evident strictures/obstruction. MRCP 10/27/24 14:28 IMPRESSION: 1. Mild intra and extra hepatic biliary ductal dilation with both cholelithiasis and choledocholithiasis which does not appear currently obstructing. 2. Very small bilateral posterior layering pleural effusions. 3. Mild bilateral hydronephrosis. Cholangiogram,Operative 10/29/24 17:33 IMPRESSION: 1. Contrast injection delineates slowly mobile nonobstructing material within the dilated common hepatic and bile ducts the appearance of which favors sludge over very small gallstones. Chest X-Ray 11/01/24 08:21 IMPRESSION: 1. Left basilar opacities which could represent atelectasis or pneumonia. 2. Lines and tubes in expected position. Labs Labs: Laboratory Results - last 24 hr 11/03/24 04:27 WBC 6.7 RBC 2.67 L Hgb 7.9 L Hct 25.2 L MCV 94.4 MCH 29.6 MCHC 31.3 L RDW 16.3 H Plt Count 110 L MPV 10.4 Sodium 135 L Potassium 3.9 Chloride 106 Carbon Dioxide 27 Anion Gap 2 L BUN 15 Creatinine 0.95 Estim Creat Clear Calc 44 Estimated GFR 59 Glucose 72 Calcium 7.8 L Phosphorus 2.4 L Magnesium 1.6 Total Bilirubin 1.5 H AST 49 H ALT 69 H Alkaline Phosphatase 58 Total Protein 5.0 L Albumin 2.5 L Quality VTE Prophylaxis VTE prophylaxis: mechanical ordered and pharmacologic ordered
[2024-11-03] MEDS: SIMVASTATIN 20 MG TABLET PO (21:02)
[2024-11-04] VITALS (10 sets, daily range): BP systolic 137–144; BP diastolic 60–83; PULSE 88–108; RESP 12–18; TEMP 36.5–36.8; O2SAT 98–99
[2024-11-04 05:23] LABS: Hemoglobin 9.1 g/dL (12.0-15.0); Immature Platelet Fraction Pct 5.4 % (0.9-11.2); Mean Corpuscular HGB Conc 30.3 g/dl (32-36); Mean Corpuscular Hemoglobin 29.1 pg (26-34); Mean Corpuscular Volume 95.8 fl (80-100); Mean Platelet Volume 10.7 fl (7.4-10.4); Platelet Count Result 143 k/mm3 (150-375); Red Blood Count 3.13 M/mm3 (4.2-5.4); Red Cell Distribution Width 17.1 % (11.5-14.5); White Blood Count 8.8 K/mm3 (4.5-10.0)
[2024-11-04 05:37] LABS: Alanine Aminotransferase 55 U/L (6-35); Albumin Level 2.9 g/dL (3.5-5.1); Alkaline Phosphatase 70 U/L (38-126); Anion Gap 3 mmol/L (4-12); Aspartate Amino Transferase 42 U/L (14-36); Bilirubin,Total 1.4 mg/dL (0.2-1.3); Blood Urea Nitrogen 17 mg/dL (7-17); Calcium 8.2 mg/dL (8.4-10.2); Carbon Dioxide 25 mmol/L (22-30); Chloride 104 mmol/L (98-107); Estimated CRCL calculation 46 ml/min; Estimated Glomerular Filt Rate 54; Glucose 80 mg/dL (65-110); Magnesium 1.7 mg/dL (1.6-2.3); Phosphorus 3.8 mg/dL (2.5-4.5); Potassium 4.3 mmol/L (3.4-5.0); Sodium 132 mmol/L (137-145)
--- NOTE | 2024-11-04 08:04 | P.PNGS_ITS ---
Progress Note: A&P Assessment and Plan (1) Chronic cholecystitis due to cholelithiasis with choledocholithiasis: Code(s): K80.64 - Calculus of gallbladder and bile duct with chronic cholecystitis without obstruction Status: Acute Assessment and Plan: Healing well following surgery. Drain removed yesterday. Wounds look good. Advanced to regular diet today. Can probably transfer back to [place] tomorrow. (2) Acute respiratory failure: Code(s): J96.00 - Acute respiratory failure, unspecified whether with hypoxia or hypercapnia Status: Acute Assessment and Plan: Resolved and doing well (3) Postoperative anemia due to acute blood loss: Code(s): D62 - Acute posthemorrhagic anemia Status: Acute Assessment and Plan: Improved from yesterday. (4) Chronic indwelling White catheter: Code(s): Z97.8 - Presence of other specified devices Status: Chronic (5) Postoperative hemorrhagic shock: Qualifiers: Encounter type: subsequent encounter Qualified Code(s): T81.19XD - Other postprocedural shock, subsequent encounter Code(s): T81.19XA - Other postprocedural shock, initial encounter Status: Acute Assessment and Plan: Resolved. Subjective Subjective Date/Time Seen: 11/04/24 08:04 Post Op day: #6 Patient reports: no new complaints, feels better, pain is less, tolerating liquids well, bowel movement and afebrile Objective Data Vital Signs Vital Signs: Vital Signs - 24 hr 11/03/24 12:00 11/03/24 16:00 11/03/24 16:30 Temperature Pulse Rate 102 H 96 Respiratory Rate 19 18 Blood Pressure 129/75 Pulse Oximetry 98 Oxygen Delivery Room Air Fraction of Inspired Oxygen 11/03/24 19:51 11/03/24 20:00 11/03/24 20:00 Temperature 36.4 C L Pulse Rate 97 96 88 Respiratory Rate 17 20 Blood Pressure 150/82 H Pulse Oximetry 99 98 Oxygen Delivery Room Air Fraction of Inspired Oxygen 11/03/24 20:44 11/04/24 00:00 11/04/24 04:00 Temperature Pulse Rate 96 91 88 Respiratory Rate 20 Blood Pressure Pulse Oximetry 98 Oxygen Delivery Room Air Fraction of Inspired Oxygen 11/04/24 04:30 Temperature 36.8 C Pulse Rate 95 Respiratory Rate 18 Blood Pressure 137/83 Pulse Oximetry 98 Oxygen Delivery Fraction of Inspired Oxygen Intake/Output Intake/Output: Intake & Output 11/01/24 11/02/24 11/03/24 11/04/24 23:59 23:59 23:59 23:59 Intake Total 1591.9 3551.0 1190 120 Output Total 2475 1325 2160 700 Balance -883.1 2226.0 -970 -580 Meds/Results Medications: Active Medications Generic Name Dose Route Start Last Admin Trade Name Freq PRN Reason Stop Dose Admin Acetaminophen 1,000 mg 10/25/24 08:02 Acetaminophen 500 Mg Tablet PO Q6H PRN Pain 1-3 or fever Hydrocodone Bitart/Acetaminophen 1 tab 11/03/24 07:47 11/03/24 21:02 Hydrocodone/Acetaminophen (*Crx) 5-325 Mg Tablet PO 1 tab Q4H PRN Administration Pain Rated 4-6 Docusate Sodium 100 mg 10/25/24 09:00 11/03/24 16:41 Docusate Sodium 100 Mg Capsule PO 100 mg BID SONIA Administration Enoxaparin Sodium 40 mg 11/02/24 09:00 11/03/24 08:53 Enoxaparin 40 Mg/0.4 Ml Syringe SUB-Q 40 mg DAILY SONIA Administration Fentanyl Citrate 12.5 mcg 10/29/24 19:12 Fentanyl Citrate Inj (*Crx) 100 Mcg/2 Ml Vial IV PUSH Q2H PRN Breakthrough Pain Rated 4-6 or NPO Fentanyl Citrate 25 mcg 10/29/24 19:12 Fentanyl Citrate Inj (*Crx) 100 Mcg/2 Ml Vial IV PUSH Q2H PRN Breakthrough Pain Rated 7-10 or NPO Hydroxyzine Pamoate 25 mg 10/25/24 17:00 10/29/24 18:29 Hydroxyzine Pamoate 25 Mg Capsule PO Not Given BID SONIA Irbesartan 75 mg 11/01/24 09:26 11/03/24 08:36 Irbesartan 75 Mg Tablet PO 75 mg DAILY SONIA Administration Lactobacillus Acidophilus 1 tablet 10/25/24 09:00 10/29/24 08:47 Acidophilus/Bulgaricus Chewable Tablet PO Not Given DAILY SONIA Levetiracetam 250 mg/ 750 mg 11/03/24 09:00 11/03/24 21:02 Levetiracetam 500 mg PO 750 mg Q12HR SONIA Administration Magnesium Oxide 400 mg 10/25/24 09:00 10/29/24 08:47 Magnesium Oxide 400 Mg Tablet PO Not Given DAILY [facility] Mirtazapine 15 mg 10/25/24 21:00 10/29/24 23:40 Mirtazapine 15 Mg Tablet PO 15 mg HS SONIA Administration Montelukast Sodium 10 mg 10/25/24 21:00 10/29/24 23:40 Montelukast Sodium 10 Mg Tablet PO 10 mg HS [facility] Administration Multivitamins/Calcium 1 tablet 10/25/24 09:00 10/29/24 08:47 Therapeutic Multivitamins/Minerals Tab (*Bkc) PO Not Given DAILY [facility] Ondansetron HCl 4 mg 10/29/24 14:00 Ondansetron Inj 4 Mg/2 Ml Vial IV PUSH ONCE PRN Nausea Oxycodone HCl 5 mg 10/25/24 08:02 Oxycodone Hcl (*Crx) 5 Mg Tab Ir PO Q4H PRN Pain Rated 7-10 Simvastatin 20 mg 10/25/24 21:00 11/03/24 21:02 Simvastatin 20 Mg Tablet PO 20 mg HS [facility] Administration Sodium Chloride 10 ml 10/29/24 22:00 11/04/24 03:52 Central Line Flush IV PUSH Not Given Q8HR [facility] Sodium Chloride 20 ml 10/29/24 19:51 Central Line Flush IV PUSH PRN PRN after blood draws Sucralfate 1 gm 10/25/24 16:30 11/04/24 05:46 Sucralfate 1 Gm Tablet PO Not Given BIDAC [facility] Vitamin D 4,000 units 10/25/24 09:00 10/29/24 08:47 Cholecalciferol 1,000 Units Tablet PO Not Given DAILY [facility] Radiology Results: ITS Impressions Abdomen/Pelvis CT 10/24/24 19:41 IMPRESSION: 1. No evidence of appendicitis, diverticulitis or intestinal obstruction. 2. Highly suggestive of abscess in the right pararectal area. 3. Markedly thickened rectal wall with distended colon by gases. Further evaluation of the rectum is advised. 4. Hypodensities in both kidneys which may indicate pyelonephritis. Dilated ureters are also noted. 5. Thickened wall of the urinary bladder which may indicate cystitis versus infiltrative process. Further evaluation advised. 6. Intrahepatic and extrahepatic biliary dilatation. 7. Cholelithiasis. 8. Hepatomegaly. Enema w/Water Soluble 10/25/24 14:02 IMPRESSION: 1. Moderate amount of scattered colonic stool suggestive of constipation with no evident strictures/obstruction. MRCP 10/27/24 14:28 IMPRESSION: 1. Mild intra and extra hepatic biliary ductal dilation with both cholelithiasis and choledocholithiasis which does not appear currently obstructing. 2. Very small bilateral posterior layering pleural effusions. 3. Mild bilateral hydronephrosis. Cholangiogram,Operative 10/29/24 17:33 IMPRESSION: 1. Contrast injection delineates slowly mobile nonobstructing material within the dilated common hepatic and bile ducts the appearance of which favors sludge over very small gallstones. Chest X-Ray 11/01/24 08:21 IMPRESSION: 1. Left basilar opacities which could represent atelectasis or pneumonia. 2. Lines and tubes in expected position. Labs Labs: Laboratory Results - last 24 hr 11/04/24 05:02 WBC 8.8 RBC 3.13 L Hgb 9.1 L Hct 30.0 L MCV 95.8 MCH 29.1 MCHC 30.3 L RDW 17.1 H Plt Count 143 L MPV 10.7 H % Immature Plt Fraction 5.4 Sodium 132 L Potassium 4.3 Chloride 104 Carbon Dioxide 25 Anion Gap 3 L BUN 17 Creatinine 1.03 H Estim Creat Clear Calc 46 Estimated GFR 54 L Glucose 80 Calcium 8.2 L Phosphorus 3.8 Magnesium 1.7 Total Bilirubin 1.4 H AST 42 H ALT 55 H Alkaline Phosphatase 70 Total Protein 6.0 L Albumin 2.9 L
[2024-11-04] MEDS: levETIRAcetam Tablet 250 MG, levETIRAcetam Tablet 500 MG 750 MG PO ×2 (08:55→21:02)
[2024-11-04] MEDS: IRBESARTAN 75 MG TABLET PO (08:55)
[2024-11-04] MEDS: DOCUSATE SODIUM 100 MG CAPSULE PO ×2 (08:55→16:38)
[2024-11-04] MEDS: ENOXAPARIN 40 MG/0.4 ML SYRINGE SUB-Q (08:55)
--- NOTE | 2024-11-04 13:07 | PM.IMPN ---
Progress Note: A&P Assessment and Plan (1) Cholelithiasis with choledocholithiasis: Code(s): K80.70 - Calculus of gallbladder and bile duct without cholecystitis without obstruction Status: Acute Assessment and Plan: Patient patient with choledocholithiasis and cholecystitis -10/29: Status post: Attempted laparoscopic cholecystectomy, open cholecystectomy with intraoperative cholangiogram, control hepatic vein hemorrhage -EBL 1000 ml Surgery planning to advance diet to low fiber diet today Management deferred to General surgery (2) Septic shock: Code(s): A41.9 - Sepsis, unspecified organism; R65.21 - Severe sepsis with septic shock Status: Acute Assessment and Plan: Septic shock resolved with IV fluids and now patient is off of vasopressors. Discontinue stress dose steroids -continue Zosyn (10/29) -lactic acid has normalized -DC central line today (3) Acute respiratory failure: Code(s): J96.00 - Acute respiratory failure, unspecified whether with hypoxia or hypercapnia Status: Acute Assessment and Plan: Postoperative acute respiratory failure, patient was intubated during the procedure and remained intubated and transferred to the ICU for further manage Extubated 11/01. Patient was also given Lasix Now on room air Continue incentive spirometry Most recent Chest x-ray reviewed (4) Postoperative anemia due to acute blood loss: Code(s): D62 - Acute posthemorrhagic anemia Status: Acute Assessment and Plan: Intraoperative hemorrhage with approximately 1000 mL in blood loss -status post 4 units of packed RBCs, 2 units of FFP and 1 unit of cryoprecipitate -continue to monitor CBC -10/30: transfused 1 unit of packed RBCs -hemoglobin stable. Monitor (5) Elevated LFTs: Code(s): R79.89 - Other specified abnormal findings of blood chemistry Status: Acute Assessment and Plan: Elevated LFTs likely related to hypotension and shock liver -LFTs trending down, will continue to monitor (6) Thrombocytopenia: Code(s): D69.6 - Thrombocytopenia, unspecified Status: Acute Assessment and Plan: Postoperative thrombocytopenia likely related to consumption -could also be related to septic shock and decreased marrow production -10/31: Patient was transferred 1 unit platelets Count improving. Monitor Plan patient s/p attempted laparoscopic cholecystectomy, has open cholecystectomy, with intraoperative cholangiogram, control hepatic vein hemorrhage developed respiratory distress and was intubated and transferred to ICU. patient is now extubated, clinically improving and transferred out of ICU to [facility], patient was seen by her surgeon, clinically doing well, tolerating her liquid diet, has BM, no fever, will monitor one more day and discharge back to [place] tomorrow. DVT prophylaxis: SCDs, Lovenox Stress ulcer prophylaxis: Protonix IV q.12 hours Nutrition: Low-fiber diet Code Status: Do not resuscitate Transfer to [facility] today Subjective Date/time seen: 11/04/24 13:07 Interval history: Patient transferred out of the ICU. Denies any complaints. Tolerating diet. patient s/p attempted laparoscopic cholecystectomy, has open cholecystectomy, with intraoperative cholangiogram, control hepatic vein hemorrhage developed respiratory distress and was intubated and transferred to ICU. patient is now extubated, clinically improving and transferred out of ICU to [facility], patient was seen by her surgeon, clinically doing well, tolerating her liquid diet, has BM, no fever, will monitor one more day and discharge back to [place] tomorrow. Review of Systems Review of Systems: All systems reviewed & are unremarkable except as noted in HPI and below (HPI) Exam Narrative: Patient is comfortable, NAD HEENT: eyes are clear and none icteric LUNGS:CTA HEART: RR S1S2 ABD: BS+, Soft and nontender Lower extremities: no edema SKIN: nonjaundiced Neuro: grossly intact. Objective Data Vital Signs Vital Signs: Vital Signs - 24 hr 11/03/24 16:00 11/03/24 16:30 11/03/24 19:51 Temperature 36.4 C L Pulse Rate 96 97 Respiratory Rate 19 18 17 Blood Pressure 129/75 150/82 H Pulse Oximetry 98 99 Oxygen Delivery Room Air Fraction of Inspired Oxygen 11/03/24 20:00 11/03/24 20:00 11/03/24 20:44 Temperature Pulse Rate 96 88 96 Respiratory Rate 20 20 Blood Pressure Pulse Oximetry 98 98 Oxygen Delivery Room Air Room Air Fraction of Inspired Oxygen 11/04/24 00:00 11/04/24 04:00 11/04/24 04:30 Temperature 36.8 C Pulse Rate 91 88 95 Respiratory Rate 18 Blood Pressure 137/83 Pulse Oximetry 98 Oxygen Delivery Fraction of Inspired Oxygen 11/04/24 08:02 11/04/24 09:50 Temperature Pulse Rate 99 Respiratory Rate 18 Blood Pressure Pulse Oximetry 98 Oxygen Delivery Room Air Fraction of Inspired Oxygen Intake/Output Intake/Output: Intake & Output 11/01/24 11/02/24 11/03/24 11/04/24 23:59 23:59 23:59 23:59 Intake Total 1591.9 3551.0 1190 300 Output Total 2475 1325 2160 700 Balance -883.1 2226.0 -970 -400 Meds/Results Medications: Active Medications Generic Name Dose Route Start Last Admin Trade Name Freq PRN Reason Stop Dose Admin Acetaminophen 1,000 mg 10/25/24 08:02 Acetaminophen 500 Mg Tablet PO Q6H PRN Pain 1-3 or fever Hydrocodone Bitart/Acetaminophen 1 tab 11/03/24 07:47 11/03/24 21:02 Hydrocodone/Acetaminophen (*Crx) 5-325 Mg Tablet PO 1 tab Q4H PRN Administration Pain Rated 4-6 Docusate Sodium 100 mg 10/25/24 09:00 11/04/24 08:55 Docusate Sodium 100 Mg Capsule PO 100 mg BID SONIA Administration Enoxaparin Sodium 40 mg 11/02/24 09:00 11/04/24 08:55 Enoxaparin 40 Mg/0.4 Ml Syringe SUB-Q 40 mg DAILY SONIA Administration Fentanyl Citrate 12.5 mcg 10/29/24 19:12 Fentanyl Citrate Inj (*Crx) 100 Mcg/2 Ml Vial IV PUSH Q2H PRN Breakthrough Pain Rated 4-6 or NPO Fentanyl Citrate 25 mcg 10/29/24 19:12 Fentanyl Citrate Inj (*Crx) 100 Mcg/2 Ml Vial IV PUSH Q2H PRN Breakthrough Pain Rated 7-10 or NPO Hydroxyzine Pamoate 25 mg 10/25/24 17:00 10/29/24 18:29 Hydroxyzine Pamoate 25 Mg Capsule PO Not Given BID SONIA Irbesartan 75 mg 11/01/24 09:26 11/04/24 08:55 Irbesartan 75 Mg Tablet PO 75 mg DAILY SONIA Administration Lactobacillus Acidophilus 1 tablet 10/25/24 09:00 10/29/24 08:47 Acidophilus/Bulgaricus Chewable Tablet PO Not Given DAILY [facility]ON[facility] Levetiracetam 250 mg/ 750 mg 11/03/24 09:00 11/04/24 08:55 Levetiracetam 500 mg PO 750 mg Q12HR SONIA Administration Magnesium Oxide 400 mg 05/12/25 09:00 10/29/24 08:47 Magnesium Oxide 400 Mg Tablet PO Not Given DAILY [facility] Mirtazapine 15 mg 10/25/24 21:00 10/29/24 23:40 Mirtazapine 15 Mg Tablet PO 15 mg HS SONIA Administration Montelukast Sodium 10 mg 10/25/24 21:00 10/29/24 23:40 Montelukast Sodium 10 Mg Tablet PO 10 mg HS [facility] Administration Multivitamins/Calcium 1 tablet 10/25/24 09:00 10/29/24 08:47 Therapeutic Multivitamins/Minerals Tab (*Bkc) PO Not Given DAILY [facility] Ondansetron HCl 4 mg 10/29/24 14:00 Ondansetron Inj 4 Mg/2 Ml Vial IV PUSH ONCE PRN Nausea Oxycodone HCl 5 mg 10/25/24 08:02 Oxycodone Hcl (*Crx) 5 Mg Tab Ir PO Q4H PRN Pain Rated 7-10 Simvastatin 20 mg 10/25/24 21:00 11/03/24 21:02 Simvastatin 20 Mg Tablet PO 20 mg HS [facility] Administration Sodium Chloride 20 ml 10/29/24 19:51 Central Line Flush IV PUSH PRN PRN after blood draws Sucralfate 1 gm 10/25/24 16:30 11/04/24 05:46 Sucralfate 1 Gm Tablet PO Not Given BIDAC [facility] Vitamin D 4,000 units 10/25/24 09:00 10/29/24 08:47 Cholecalciferol 1,000 Units Tablet PO Not Given DAILY [facility] Radiology Results: ITS Impressions Abdomen/Pelvis CT 10/24/24 19:41 IMPRESSION: 1. No evidence of appendicitis, diverticulitis or intestinal obstruction. 2. Highly suggestive of abscess in the right pararectal area. 3. Markedly thickened rectal wall with distended colon by gases. Further evaluation of the rectum is advised. 4. Hypodensities in both kidneys which may indicate pyelonephritis. Dilated ureters are also noted. 5. Thickened wall of the urinary bladder which may indicate cystitis versus infiltrative process. Further evaluation advised. 6. Intrahepatic and extrahepatic biliary dilatation. 7. Cholelithiasis. 8. Hepatomegaly. Enema w/Water Soluble 10/25/24 14:02 IMPRESSION: 1. Moderate amount of scattered colonic stool suggestive of constipation with no evident strictures/obstruction. MRCP 10/27/24 14:28 IMPRESSION: 1. Mild intra and extra hepatic biliary ductal dilation with both cholelithiasis and choledocholithiasis which does not appear currently obstructing. 2. Very small bilateral posterior layering pleural effusions. 3. Mild bilateral hydronephrosis. Cholangiogram,Operative 10/29/24 17:33 IMPRESSION: 1. Contrast injection delineates slowly mobile nonobstructing material within the dilated common hepatic and bile ducts the appearance of which favors sludge over very small gallstones. Chest X-Ray 11/01/24 08:21 IMPRESSION: 1. Left basilar opacities which could represent atelectasis or pneumonia. 2. Lines and tubes in expected position. Labs Labs: Laboratory Results - last 24 hr 11/04/24 05:02 WBC 8.8 RBC 3.13 L Hgb 9.1 L Hct 30.0 L MCV 95.8 MCH 29.1 MCHC 30.3 L RDW 17.1 H Plt Count 143 L MPV 10.7 H % Immature Plt Fraction 5.4 Sodium 132 L Potassium 4.3 Chloride 104 Carbon Dioxide 25 Anion Gap 3 L BUN 17 Creatinine 1.03 H Estim Creat Clear Calc 46 Estimated GFR 54 L Glucose 80 Calcium 8.2 L Phosphorus 3.8 Magnesium 1.7 Total Bilirubin 1.4 H AST 42 H ALT 55 H Alkaline Phosphatase 70 Total Protein 6.0 L Albumin 2.9 L Quality VTE Prophylaxis VTE prophylaxis: mechanical ordered and pharmacologic ordered
[2024-11-04] MEDS: SUCRALFATE 1 GM TABLET PO (16:38)
[2024-11-04] MEDS: SIMVASTATIN 20 MG TABLET PO (21:03)
[2024-11-05] VITALS (9 sets, daily range): BP systolic 112–139; BP diastolic 69–80; PULSE 85–123; RESP 14–18; TEMP 36.4–36.8; O2SAT 91–98
[2024-11-05] MEDS: SUCRALFATE 1 GM TABLET PO ×2 (06:23→17:52)
[2024-11-05] MEDS: levETIRAcetam Tablet 250 MG, levETIRAcetam Tablet 500 MG 750 MG PO ×2 (09:59→21:30)
[2024-11-05] MEDS: DOCUSATE SODIUM 100 MG CAPSULE PO ×2 (09:59→17:52)
[2024-11-05] MEDS: ENOXAPARIN 40 MG/0.4 ML SYRINGE SUB-Q (09:59)
[2024-11-05] MEDS: IRBESARTAN 75 MG TABLET PO (09:59)
--- NOTE | 2024-11-05 12:12 | PM.PNGS ---
Progress Note: A&P Assessment and Plan (1) Abnormal CT scan, pelvis: Code(s): R93.5 - Abnormal findings on diagnostic imaging of other abdominal regions, including retroperitoneum Status: Acute Assessment and Plan: Fluid collection in pelvis noted on initial CT scan and described as a perirectal abscess has never been seen on exam nor is it palpable on digital rectal exam. Will repeat CT scan today to reassess. Hopefully, no additional intervention will be needed for this. (2) Chronic cholecystitis due to cholelithiasis with choledocholithiasis: Code(s): K80.64 - Calculus of gallbladder and bile duct with chronic cholecystitis without obstruction Status: Acute Assessment and Plan: Doing well. Wound healing well. Will take out avery and placed Steri-Strips today. Getting close to transferring back to [place]. (3) Postoperative anemia due to acute blood loss: Code(s): D62 - Acute posthemorrhagic anemia Status: Acute Assessment and Plan: Improved yesterday, will repeat again tomorrow (4) Dementia: Code(s): F03.90 - Unspecified dementia, unspecified severity, without behavioral disturbance, psychotic disturbance, mood disturbance, and anxiety Status: Chronic Assessment and Plan: No change Subjective Subjective Date/Time Seen: 11/05/24 12:12 Post Op day: #7 Patient reports: no new complaints, pain is less, tolerating a regular diet, bowel movement and afebrile Exam Const: General: comfortable, alert and awake GI: Inspection: non-distended and incision (Healing well) GI Palp: Yes Soft to palpation and Yes Tenderness to palpation present (GI) (Appropriate tenderness) Auscultation: normoactive bowel sounds Objective Data Vital Signs Vital Signs: Vital Signs - 24 hr 11/04/24 13:40 11/04/24 16:03 11/04/24 19:54 Temperature 36.6 C 36.5 C Pulse Rate 104 H 108 H 103 H Respiratory Rate 12 18 Blood Pressure 140/75 144/60 H Pulse Oximetry 99 98 11/04/24 20:00 11/05/24 00:00 11/05/24 04:00 Temperature Pulse Rate 103 H 103 H 85 Respiratory Rate Blood Pressure Pulse Oximetry 11/05/24 04:51 Temperature 36.4 C Pulse Rate 91 Respiratory Rate 18 Blood Pressure 122/78 Pulse Oximetry 98 Intake/Output Intake/Output: Intake & Output 11/02/24 11/03/24 11/04/24 11/05/24 23:59 23:59 23:59 23:59 Intake Total 3551.0 1190 1020 240 Output Total 1325 2160 1775 900 Balance 2226.0 -970 -755 -660 Meds/Results Medications: Active Medications Generic Name Dose Route Start Last Admin Trade Name Freq PRN Reason Stop Dose Admin Acetaminophen 1,000 mg 10/25/24 08:02 Acetaminophen 500 Mg Tablet PO Q6H PRN Pain 1-3 or fever Hydrocodone Bitart/Acetaminophen 1 tab 11/03/24 07:47 11/03/24 21:02 Hydrocodone/Acetaminophen (*Crx) 5-325 Mg Tablet PO 1 tab Q4H PRN Administration Pain Rated 4-6 Docusate Sodium 100 mg 10/25/24 09:00 11/05/24 09:59 Docusate Sodium 100 Mg Capsule PO 100 mg BID SONIA Administration Enoxaparin Sodium 40 mg 11/02/24 09:00 11/05/24 09:59 Enoxaparin 40 Mg/0.4 Ml Syringe SUB-Q 40 mg DAILY SONIA Administration Fentanyl Citrate 12.5 mcg 10/29/24 19:12 Fentanyl Citrate Inj (*Crx) 100 Mcg/2 Ml Vial IV PUSH Q2H PRN Breakthrough Pain Rated 4-6 or NPO Fentanyl Citrate 25 mcg 10/29/24 19:12 Fentanyl Citrate Inj (*Crx) 100 Mcg/2 Ml Vial IV PUSH Q2H PRN Breakthrough Pain Rated 7-10 or NPO Hydroxyzine Pamoate 25 mg 10/25/24 17:00 10/29/24 18:29 Hydroxyzine Pamoate 25 Mg Capsule PO Not Given BID SONIA Irbesartan 75 mg 11/01/24 09:26 11/05/24 09:59 Irbesartan 75 Mg Tablet PO 75 mg DAILY SONIA Administration Lactobacillus Acidophilus 1 tablet 10/25/24 09:00 10/29/24 08:47 Acidophilus/Bulgaricus Chewable Tablet PO Not Given DAILY [facility] Levetiracetam 250 mg/ 750 mg 11/03/24 09:00 11/05/24 09:59 Levetiracetam 500 mg PO 750 mg Q12HR SONIA Administration Magnesium Oxide 400 mg 10/25/24 09:00 10/29/24 08:47 Magnesium Oxide 400 Mg Tablet PO Not Given DAILY [facility] Mirtazapine 15 mg 10/25/24 21:00 10/29/24 23:40 Mirtazapine 15 Mg Tablet PO 15 mg HS SONIA Administration Montelukast Sodium 10 mg 10/25/24 21:00 10/29/24 23:40 Montelukast Sodium 10 Mg Tablet PO 10 mg HS SONIA Administration Multivitamins/Calcium 1 tablet 10/25/24 09:00 10/29/24 08:47 Therapeutic Multivitamins/Minerals Tab (*Bkc) PO Not Given DAILY [facility] Ondansetron HCl 4 mg 10/29/24 14:00 Ondansetron Inj 4 Mg/2 Ml Vial IV PUSH ONCE PRN Nausea Oxycodone HCl 5 mg 10/25/24 08:02 Oxycodone Hcl (*Crx) 5 Mg Tab Ir PO Q4H PRN Pain Rated 7-10 Simvastatin 20 mg 10/25/24 21:00 11/04/24 21:03 Simvastatin 20 Mg Tablet PO 20 mg HS [facility] Administration Sodium Chloride 20 ml 10/29/24 19:51 Central Line Flush IV PUSH PRN PRN after blood draws Sucralfate 1 gm 10/25/24 16:30 11/05/24 06:23 Sucralfate 1 Gm Tablet PO 1 gm BIDAC [facility] Administration Vitamin D 4,000 units 10/25/24 09:00 10/29/24 08:47 Cholecalciferol 1,000 Units Tablet PO Not Given DAILY [facility] Radiology Results: ITS Impressions Enema w/Water Soluble 10/25/24 14:02 IMPRESSION: 1. Moderate amount of scattered colonic stool suggestive of constipation with no evident strictures/obstruction. MRCP 10/27/24 14:28 IMPRESSION: 1. Mild intra and extra hepatic biliary ductal dilation with both cholelithiasis and choledocholithiasis which does not appear currently obstructing. 2. Very small bilateral posterior layering pleural effusions. 3. Mild bilateral hydronephrosis. Cholangiogram,Operative 10/29/24 17:33 IMPRESSION: 1. Contrast injection delineates slowly mobile nonobstructing material within the dilated common hepatic and bile ducts the appearance of which favors sludge over very small gallstones. Chest X-Ray 11/01/24 08:21 IMPRESSION: 1. Left basilar opacities which could represent atelectasis or pneumonia. 2. Lines and tubes in expected position.
--- NOTE | 2024-11-05 16:56 | PM.IMPN ---
Progress Note: A&P Assessment and Plan (1) Cholelithiasis with choledocholithiasis: Code(s): K80.70 - Calculus of gallbladder and bile duct without cholecystitis without obstruction Status: Acute Assessment and Plan: Patient patient with choledocholithiasis and cholecystitis -10/29: Status post: Attempted laparoscopic cholecystectomy, open cholecystectomy with intraoperative cholangiogram, control hepatic vein hemorrhage -EBL 1000 ml Surgery planning to advance diet to low fiber diet today Management deferred to General surgery (2) Septic shock: Code(s): A41.9 - Sepsis, unspecified organism; R65.21 - Severe sepsis with septic shock Status: Acute Assessment and Plan: Septic shock resolved with IV fluids and now patient is off of vasopressors. Discontinue stress dose steroids -continue Zosyn (10/29) -lactic acid has normalized -DC central line today (3) Acute respiratory failure: Code(s): J96.00 - Acute respiratory failure, unspecified whether with hypoxia or hypercapnia Status: Acute Assessment and Plan: Postoperative acute respiratory failure, patient was intubated during the procedure and remained intubated and transferred to the ICU for further manage Extubated 11/01. Patient was also given Lasix Now on room air Continue incentive spirometry Most recent Chest x-ray reviewed (4) Postoperative anemia due to acute blood loss: Code(s): D62 - Acute posthemorrhagic anemia Status: Acute Assessment and Plan: Intraoperative hemorrhage with approximately 1000 mL in blood loss -status post 4 units of packed RBCs, 2 units of FFP and 1 unit of cryoprecipitate -continue to monitor CBC -10/30: transfused 1 unit of packed RBCs -hemoglobin stable. Monitor (5) Elevated LFTs: Code(s): R79.89 - Other specified abnormal findings of blood chemistry Status: Acute Assessment and Plan: Elevated LFTs likely related to hypotension and shock liver -LFTs trending down, will continue to monitor (6) Thrombocytopenia: Code(s): D69.6 - Thrombocytopenia, unspecified Status: Acute Assessment and Plan: Postoperative thrombocytopenia likely related to consumption -could also be related to septic shock and decreased marrow production -10/31: Patient was transferred 1 unit platelets Count improving. Monitor Plan patient s/p attempted laparoscopic cholecystectomy, has open cholecystectomy, with intraoperative cholangiogram, control hepatic vein hemorrhage developed respiratory distress and was intubated and transferred to ICU. patient is now extubated, clinically improving and transferred out of ICU to [facility] [place], patient was seen by her surgeon, clinically doing well, tolerating her liquid diet, has BM, no fever, will monitor one more day and plan was to discharge patient today however waiting final discharge order from her surgoen after reviewing CT of abdomen. Subjective Date/time seen: 11/05/24 16:56 Interval history: Patient transferred out of the ICU. Denies any complaints. Tolerating diet. patient s/p attempted laparoscopic cholecystectomy, has open cholecystectomy, with intraoperative cholangiogram, control hepatic vein hemorrhage developed respiratory distress and was intubated and transferred to ICU. patient is now extubated, clinically improving and transferred out of ICU to [facility] [place], patient was seen by her surgeon, clinically doing well, tolerating her liquid diet, has BM, no fever, will monitor one more day and plan was to discharge patient today however waiting final discharge order from her surgoen after reviewing CT of abdomen. Review of Systems Review of Systems: All systems reviewed & are unremarkable except as noted in HPI and below (HPI) Exam Narrative: Patient is comfortable, NAD HEENT: eyes are clear and none icteric LUNGS:CTA HEART: RR S1S2 ABD: BS+, Soft and nontender Lower extremities: no edema SKIN: nonjaundiced Neuro: grossly intact. Const: General: comfortable; No no acute distress Resp: Effort & Inspection: normal respiratory effort Auscultation: clear to auscultation bilaterally Cardio: Rate: regular rate Rhythm: regular rhythm GI: Auscultation: normal bowel sounds Urinary Catheter: Urinary Catheter: patent and draining Objective Data Vital Signs Vital Signs: Vital Signs - 24 hr 11/04/24 19:54 11/04/24 20:00 11/05/24 00:00 Temperature 36.5 C Pulse Rate 103 H 103 H 103 H Respiratory Rate 18 Blood Pressure 144/60 H Pulse Oximetry 98 Oxygen Delivery 11/05/24 04:00 11/05/24 04:51 11/05/24 08:00 Temperature 36.4 C Pulse Rate 85 91 Respiratory Rate 18 Blood Pressure 122/78 Pulse Oximetry 98 Oxygen Delivery Room Air 11/05/24 13:26 Temperature 36.8 C Pulse Rate 101 H Respiratory Rate 18 Blood Pressure 139/69 Pulse Oximetry 93 Oxygen Delivery Intake/Output Intake/Output: Intake & Output 11/02/24 11/03/24 11/04/24 11/05/24 23:59 23:59 23:59 23:59 Intake Total 3551.0 1190 1020 360 Output Total 1325 2160 1775 1390 Balance 2226.0 -970 -755 -1030 Meds/Results Medications: Active Medications Generic Name Dose Route Start Last Admin Trade Name Freq PRN Reason Stop Dose Admin Acetaminophen 1,000 mg 10/25/24 08:02 Acetaminophen 500 Mg Tablet PO Q6H PRN Pain 1-3 or fever Hydrocodone Bitart/Acetaminophen 1 tab 11/03/24 07:47 11/03/24 21:02 Hydrocodone/Acetaminophen (*Crx) 5-325 Mg Tablet PO 1 tab Q4H PRN Administration Pain Rated 4-6 Docusate Sodium 100 mg 10/25/24 09:00 11/05/24 09:59 Docusate Sodium 100 Mg Capsule PO 100 mg BID SONIA Administration Enoxaparin Sodium 40 mg 11/02/24 09:00 11/05/24 09:59 Enoxaparin 40 Mg/0.4 Ml Syringe SUB-Q 40 mg DAILY SONIA Administration Fentanyl Citrate 12.5 mcg 10/29/24 19:12 Fentanyl Citrate Inj (*Crx) 100 Mcg/2 Ml Vial IV PUSH Q2H PRN Breakthrough Pain Rated 4-6 or NPO Fentanyl Citrate 25 mcg 10/29/24 19:12 Fentanyl Citrate Inj (*Crx) 100 Mcg/2 Ml Vial IV PUSH Q2H PRN Breakthrough Pain Rated 7-10 or NPO Hydroxyzine Pamoate 25 mg 10/25/24 17:00 10/29/24 18:29 Hydroxyzine Pamoate 25 Mg Capsule PO Not Given BID SONIA Irbesartan 75 mg 11/01/24 09:26 11/05/24 09:59 Irbesartan 75 Mg Tablet PO 75 mg DAILY SONIA Administration Lactobacillus Acidophilus 1 tablet 10/25/24 09:00 10/29/24 08:47 Acidophilus/Bulgaricus Chewable Tablet PO Not Given DAILY SONIA Levetiracetam 250 mg/ 750 mg 11/03/24 09:00 11/05/24 09:59 Levetiracetam 500 mg PO 750 mg Q12HR SONIA Administration Magnesium Oxide 400 mg 10/25/24 09:00 10/29/24 08:47 Magnesium Oxide 400 Mg Tablet PO Not Given DAILY [facility] Mirtazapine 15 mg 10/25/24 21:00 10/29/24 23:40 Mirtazapine 15 Mg Tablet PO 15 mg HS [facility] Administration Montelukast Sodium 10 mg 10/25/24 21:00 10/29/24 23:40 Montelukast Sodium 10 Mg Tablet PO 10 mg HS [facility] Administration Multivitamins/Calcium 1 tablet 10/25/24 09:00 10/29/24 08:47 Therapeutic Multivitamins/Minerals Tab (*Bkc) PO Not Given DAILY [facility] Ondansetron HCl 4 mg 10/29/24 14:00 Ondansetron Inj 4 Mg/2 Ml Vial IV PUSH ONCE PRN Nausea Oxycodone HCl 5 mg 10/25/24 08:02 Oxycodone Hcl (*Crx) 5 Mg Tab Ir PO Q4H PRN Pain Rated 7-10 Simvastatin 20 mg 10/25/24 21:00 11/04/24 21:03 Simvastatin 20 Mg Tablet PO 20 mg HS [facility] Administration Sodium Chloride 20 ml 10/29/24 19:51 Central Line Flush IV PUSH PRN PRN after blood draws Sucralfate 1 gm 10/25/24 16:30 11/05/24 06:23 Sucralfate 1 Gm Tablet PO 1 gm BIDAC [facility] Administration Vitamin D 4,000 units 10/25/24 09:00 10/29/24 08:47 Cholecalciferol 1,000 Units Tablet PO Not Given DAILY [facility] Radiology Results: ITS Impressions Enema w/Water Soluble 10/25/24 14:02 IMPRESSION: 1. Moderate amount of scattered colonic stool suggestive of constipation with no evident strictures/obstruction. MRCP 10/27/24 14:28 IMPRESSION: 1. Mild intra and extra hepatic biliary ductal dilation with both cholelithiasis and choledocholithiasis which does not appear currently obstructing. 2. Very small bilateral posterior layering pleural effusions. 3. Mild bilateral hydronephrosis. Cholangiogram,Operative 10/29/24 17:33 IMPRESSION: 1. Contrast injection delineates slowly mobile nonobstructing material within the dilated common hepatic and bile ducts the appearance of which favors sludge over very small gallstones. Chest X-Ray 11/01/24 08:21 IMPRESSION: 1. Left basilar opacities which could represent atelectasis or pneumonia. 2. Lines and tubes in expected position. Abdomen/Pelvis CT 11/05/24 13:30 IMPRESSION: 1. Postoperative change interval cholecystectomy with multilobulated complex fluid collection in the right upper and lower quadrants including at the gallbladder fossa with appearance most suggestive of postoperative hematoma including a hepatic subcapsular component. The cephalad inferior vena cava appears flattened which suggests secondary hypovolemia. Correlate with hemoglobin and hematocrit levels. 2. 4.2 x 2.7 cm loculated fluid collection in the deep right pelvis with thin peripheral enhancing wall but with no significant surrounding inflammatory stranding to elevate suspicion for abscess. This has not significantly changed since CT dated 09/26/2024 preceding the prior surgery and although images are not available for an earlier study from 03/07/2021 the report from that study describes a right pelvic cystic mass suggests this could also represent a chronic right adnexal cyst, peritoneal inclusion cyst or lymphangioma. 3. Numerous new small hypoenhancing lesions scattered throughout the spleen without evidence splenic venous thrombosis which given the relatively rapid development suggests possible infectious etiology. 4. Chronic bilateral hydronephrosis. Quality VTE Prophylaxis VTE prophylaxis: mechanical ordered and pharmacologic ordered
[2024-11-05] MEDS: HYDROcodone/acetaminophen (*CRX) 5-325 MG TABLET 1 TAB PO ×2 (17:57→22:11)
[2024-11-05] MEDS: SIMVASTATIN 20 MG TABLET PO (21:30)
[2024-11-06] VITALS: PULSE 116
[2024-11-06 04:00] VITALS: PULSE 106
[2024-11-06] MEDS: SUCRALFATE 1 GM TABLET PO (06:37)
[2024-11-06 08:00] VITALS: PULSE 117
[2024-11-06 08:16] LABS: Hematocrit 25.8 % (37.0-47.0); Hemoglobin 8.1 g/dL (12.0-15.0); Mean Corpuscular HGB Conc 31.4 g/dl (32-36); Mean Corpuscular Hemoglobin 29.3 pg (26-34); Mean Corpuscular Volume 93.5 fl (80-100); Mean Platelet Volume 10.5 fl (7.4-10.4); Platelet Count Result 161 k/mm3 (150-375); Red Blood Count 2.76 M/mm3 (4.2-5.4); Red Cell Distribution Width 16.9 % (11.5-14.5)
[2024-11-06 08:34] LABS: Anion Gap 6 mmol/L (4-12); Blood Urea Nitrogen 10 mg/dL (7-17); Calcium 7.9 mg/dL (8.4-10.2); Carbon Dioxide 20 mmol/L (22-30); Chloride 102 mmol/L (98-107); Estimated CRCL calculation 51 ml/min; Estimated Glomerular Filt Rate > 60; Glucose 103 mg/dL (65-110); Magnesium 1.7 mg/dL (1.6-2.3); Potassium 3.8 mmol/L (3.4-5.0); Sodium 128 mmol/L (137-145)
--- NOTE | 2024-11-06 10:51 | P.DS_ITS ---
DS: Summary Time Spent with Patient Time attestation: Total time spent providing and/or coordinating discharge services: DS: Data Data Completed and Pending Completed studies during hospitalization: Pending at discharge 10/29/24 17:07 Surgical [PTH] Routine Labs on day of discharge: Labs from last 24 hours 11/06/24 07:55 WBC 8.0 RBC 2.76 L Hgb 8.1 L Hct 25.8 L MCV 93.5 MCH 29.3 MCHC 31.4 L RDW 16.9 H Plt Count 161 MPV 10.5 H Sodium 128 L Potassium 3.8 Chloride 102 Carbon Dioxide 20 L Anion Gap 6 BUN 10 D Creatinine 0.81 Estim Creat Clear Calc 51 Estimated GFR > 60 Glucose 103 Calcium 7.9 L Magnesium 1.7 Discharge Plan Discharge Attending physician on discharge: Kate Richards Consulting providers: Shaina Zheng; Zhanna Loco; Wyatt Cardenas Discharging Clinician: Marsha Yu Patient Disposition: ID Assisted/Asst Living Activity: as tolerated Diet: regular Wound Care Instructions: incision open to air Discharge Instructions: General Surgery Discharge Instructions: * OK to wash over incisions with soap and water * Ok to bathe or shower * remove steristrips when they are loose and easy to grasp * remove bandage over drain site RLQ on 11/07/24, and leave wound open. * See Dr. Cardenas in office in 2 weeks. * take tylenol or ibuprofen as needed for any postop pain * * Patient to follow discharge care instruction from her surgeon and follow up as scheduled, * Patient to follow up with her primary care provider as soon as possible. Patient Instructions: Antibiotic Form Patient Language: [place] Stand Alone Forms: General Discharge Information Follow-up/Referrals: [facility],MD Wyatt [Primary Care Provider] - Wyatt Cardenas MD [Physician] - 2 Weeks Discharge Medications: Continued sucralfate 1 gram tablet 1 g PO BID simvastatin 20 mg tablet 20 mg PO HS montelukast 10 mg tablet 10 mg PO DAILY mirtazapine 15 mg tablet 15 mg PO HS hydroxyzine pamoate 25 mg capsule 25 mg PO BID ergocalciferol (vitamin D2) 25,000 unit Capsule 50,000 unit PO WEEKLY Patient Comments: takes on friday Rx Instructions: FRIDAY Acidophilus Capsule 1 cap PO DAILY Daily Multivitamin-Minerals Tablet 1 tablet PO DAILY acetaminophen 500 mg Capsule 1,000 mg PO Q6H PRN (Reason: Pain) ascorbate calcium (vitamin C) 500 mg Tablet 500 mg PO BID ergocalciferol (vitamin D2) 50 mcg (2,000 unit) tablet 100 mcg PO DAILY pantoprazole [Protonix] 20 mg Tablet,Delayed Release (Dr/Ec) 20 mg PO Q12HR Qty: 60 1RF magnesium oxide 400 mg (241.3 mg magnesium) Tablet 400 mg PO DAILY Qty: 60 0RF levetiracetam 250 mg Tablet 750 mg PO Q12HR Qty: 180 1RF lactulose 10 gram/15 mL Solution 20 g PO Q12H Qty: 1800 1RF oxycodone 5 mg Tablet 5 mg PO Q4H PRN (Reason: Pain Rated 7-10) Qty: 15 0RF metoclopramide HCl [Reglan] 10 mg tablet 10 mg PO Q6H PRN (Reason: nausea and vomiting) Qty: 60 0RF irbesartan 75 mg tablet 75 mg PO DAILY bisacodyl 10 mg suppository 10 mg RECTAL Q12H PRN (Reason: constipation) Fleet Enema 19-7 gram/118 mL enema 118 ml RECTAL DAILY PRN (Reason: constipation) potassium chloride 10 mEq tablet extended release 10 meq PO BID docusate sodium 100 mg Capsule 100 mg PO BID Qty: 60 0RF Date of admission: 10/24/24 21:11 Primary Care Provider: PaulWyatt Admitting Provider: Shaina Zheng Attending physician on admission: Kate Richards Condition: Improved
[2024-11-06 12:00] VITALS: PULSE 111
[2024-11-06 14:05] VITALS: BP 119/60; PULSE 110; RESP 18; TEMP 36.8; O2SAT 98
[2024-11-06] MEDS: DOCUSATE SODIUM 100 MG CAPSULE PO (15:36)
[2024-11-06] MEDS: levETIRAcetam Tablet 250 MG, levETIRAcetam Tablet 500 MG 750 MG PO (15:36)
[2024-11-06] MEDS: IRBESARTAN 75 MG TABLET PO (15:36)
== END 2024-11-06 19:52 | DRG 356 ==
LOC: ANHED 21:11 → ANH3MEDSUR 21:36 → ANHICU 10-29 17:56 → ANH2MED 11-03 16:28
PROVIDERS: Anesthesiology; Emergency Medicine; General Practice; Internal Medicine; Nurse Practitioner Acute Care; Nurse Practitioner Family; Surgery; Admitting Provider Surgery; Emergency Provider Emergency Medicine; PCP Internal Medicine; Visit Provider Family Medicine
PROC: 0FT44ZZ Resection of Gallbladder, Percutaneous Endoscopic Approach (ICD-10-PCS; CPT 47562; principal; 2024-10-29 13:30)
DX: K61.1 Rectal abscess (principal); A41.9 Sepsis, unspecified organism; T81.19XA Other postprocedural shock, initial encounter; J95.821 Acute postprocedural respiratory failure; K80.64 Calculus of gallbladder and bile duct with chronic cholecystitis without obstruction; T81.44XA Sepsis following a procedure, initial encounter; K91.61 Intraoperative hemorrhage and hematoma of a digestive system organ or structure complicating a digestive system procedure; D62 Acute posthemorrhagic anemia; K51.90 Ulcerative colitis, unspecified, without complications; I13.0 Hypertensive heart and chronic kidney disease with heart failure and stage 1 through stage 4 chronic kidney disease, or unspecified chronic kidney disease; I25.10 Atherosclerotic heart disease of native coronary artery without angina pectoris; I50.9 Heart failure, unspecified; N18.9 Chronic kidney disease, unspecified; D69.6 Thrombocytopenia, unspecified; K66.0 Peritoneal adhesions (postprocedural) (postinfection); K62.89 Other specified diseases of anus and rectum; K21.9 Gastro-esophageal reflux disease without esophagitis; K59.00 Constipation, unspecified; E78.5 Hyperlipidemia, unspecified; N31.9 Neuromuscular dysfunction of bladder, unspecified; M19.90 Unspecified osteoarthritis, unspecified site; G40.909 Epilepsy, unspecified, not intractable, without status epilepticus; F41.9 Anxiety disorder, unspecified; F03.90 Unspecified dementia, unspecified severity, without behavioral disturbance, psychotic disturbance, mood disturbance, and anxiety; F32.A Depression, unspecified; I69.398 Other sequelae of cerebral infarction; Z86.718 Personal history of other venous thrombosis and embolism; Z53.31 Laparoscopic surgical procedure converted to open procedure
CPT/HCPCS: 36415; 36430; 36600; 71045; 74177; 74183; 74270; 74300; 76376; 80048; 80053; 81001; 82375; 82805; 82948; 83050; 83605; 83690; 83735; 84100; 84132; 84478; 85014; 85018; 85025; 85027; 85055; 85380; 85384; 85610; 85730; 86850; 86900; 86901; 86920; 86923; 87040; 87086; 87186; 87493; 88304; 93005; 93306; 94002; 94003; 96361; 96365; 96375; 99285; A9270; A9577; J0690; J1100; J1650; J1720; J1938; J1953; J2250; J2371; J2405; J2470; J2543; J2704; J3010; J3475; J3480; J7030; J7040; J7050; J7120; P9012; P9016; P9017; P9034; P9047; Q9966; Q9967